=== PATIENT | male | born 1930 | race Caucasian/White ===

== ENCOUNTER 2016-07-11 14:24 | Inpatient (IN) | payer OTHER, MEDICARE ==
[2016-07-11] MEDS ORDERED: ASPIRIN 81 MG CHEWABLE TABLETS PO ONE (14:36)
[2016-07-11] MEDS ORDERED: ASPIRIN 81 MG CHEWABLE TABLETS ONE (14:43)
[2016-07-11 14:46] LABS: BASOPHIL 0.5 % (0-2.0); EOSINOPHIL 0.7 % (0-4.5); MCHC 32.4 g/dl (32.0-35.9); MEAN CELL VOLUME 86.4 fl (80-96); NEUTROPHILS 80.6 % (42.8-82.8); PLATELET COUNT 144 K/MM3 (134-434); RDW 17.4 % (11.9-15.9); WHITE BLOOD COUNT 8.2 K/mm3 (4.0-10.0)
--- NOTE | 2016-07-11 14:56 | PDOC ---
History of Present Illness - General Chief Complaint: Chest Pain Stated Complaint: SOB/CHEST PAIN Time Seen by Provider: 07/11/16 14:35 History Source: Patient Exam Limitations: No Limitations - History of Present Illness Initial Comments: 07/11/16 15:13 CHIEF COMPLAINT: Chest Pain HISTORY OF PRESENT ILLNESS: This is an 85 year old male with a history of CAD s/p ND 1997, s/p CABG x 3 1983 an 1997, bovine Aortic valve replacement x 2 (1983, 1998), DVT 1998, Afib ( on coumadin), PVD s/p right LE stent, TIA s/p Right CA, HTN, HLD, AAA, Chronic Kidney disease and R great toe pseudomonal osteomyelitis who presents to the ER with a complaint of chest pain and shortness of breath. Pt states his symptoms have been present for the past 4 days. Pain is described as pressure, located in the left chest, no radiation to the arm, jaw or back Pain is 7/10 Pt states when his symptoms began, he was seen by Dr Toth who increased his Lasix from 20mg daily to 40 mg po BID Despite this, he states his breathing worsened He has noted no fevers or chills No cough or sputum production Pt denies chest wall trauma or bruising. Pt denies lower extremity edema. Pt denies nausea, vomiting, or diarrhea. Pt denies lightheadedness, palpitations, or syncope PMH/PSH: as abve Meds: please see MAR ALL: PCN Social: Pt denies allergies, and significant past hospitalizations. Pt denies alcohol use, tobacco use, or recreational drug use. REVIEW OF SYSTEMS: GENERAL/CONSTITUTIONAL: No fever or chills. No weakness. No weight change. HEAD, EYES, EARS, NOSE AND THROAT: No change in vision. No ear pain or discharge. No sore throat. CARDIOVASCULAR: Yes: chest pain, shortness of breath. RESPIRATORY: No cough, wheezing, or hemoptysis. No pain on deep inspiration. GASTROINTESTINAL: No nausea, vomiting, diarrhea or constipation. No rectal bleeding. GENITOURINARY: No dysuria, frequency, or change in urination. MUSCULOSKELETAL: No deformity, no fracture SKIN: No rash or easy bruising. NEUROLOGIC: No headache, vertigo, loss of consciousness, or loss of sensation. PSYCHIATRIC: No depression or anxiety. ENDOCRINE: No increased thirst. No abnormal weight change. HEMATOLOGIC/LYMPHATIC: No bruising PHYSICAL EXAM: GENERAL: The patient is awake, alert, and fully oriented, in no acute distress. HEAD: Normal with no signs of trauma. ENT: Pupils equal, round and reactive to light, extraocular movements intact, sclera anicteric, conjunctiva clear. Neck supple. PULM: Breath sounds present and equal bilaterally. Normal excursion. No respiratory distress or use of accessory muscles. CV: Irregular rate and rhythm, S1/S2, + systolic murmur auscultated at LUSB, LLSB, radiating to axilla and b/l carotids. Cap refill < 2 sec. ABDOMEN: Soft, non-distended, non-tender. MS: No tenderness, no deformity, no fracture or bruising EXTREMITIES: Normal range of motion, trace LE edema. NEUROLOGICAL: Normal speech, normal gait. CN II-XII grossly intact. No midline cervical vertebral tenderness. Midline tenderness T4/T5 even when patient is distracted. No midline lumbar or sacral vertebral tenderness. 5/5 upper and lower extremity strength bilaterally. No saddle anesthesia. PSYCH: Normal mood, normal affect. SKIN: Warm, dry, normal turgor, no rashes or lesions noted. Healed sternal/ abdominal surgical scar, healed RLE surgical scar. 07/11/16 15:33 == Past History - Past Medical History Allergies/Adverse Reactions: Allergies Allergy/AdvReac Type Severity Reaction Status Date / Time Penicillins Allergy Rash Verified 07/11/16 14:35 Home Medications: Ambulatory Orders Amlodipine Besylate [Norvasc -] 5 mg PO DAILY 11/13/14 Atenolol [Tenormin -] 25 mg PO BID 11/13/14 Atorvastatin Ca [Lipitor -] 20 mg PO HS 11/13/14 Cholecalciferol (Vitamin D3) [Vitamin D3 -] 1,000 unit PO DAILY 11/13/14 Cyanocobalamin [Vitamin B12 -] 2,000 mcg PO DAILY 11/13/14 Docusate Sodium [Colace] 100 mg PO TID 11/13/14 Folic Acid - 1 mg PO DAILY 11/13/14 Furosemide [Lasix -] 40 mg PO BID 11/13/14 Hydralazine HCl 100 mg PO TID 11/13/14 Hydrochlorothiazide [Hctz -] 25 mg PO ONCE 11/13/14 Terazosin HCl 2 mg PO HS 11/13/14 Warfarin Sodium [Coumadin] 2 mg PO HS 11/13/14 Ascorbate Calcium [Vitamin C] 500 mg PO DAILY 07/11/16 Bifidobacterium Infantis [Align Jr] 10.5 mg PO DAILY 07/11/16 Losartan Potassium [Cozaar -] 50 mg PO DAILY 07/11/16 Potassium Chloride 20 meq PO DAILY 07/11/16 Anemia: Yes Asthma: No Cancer: No Cardiac Disorders: Yes (CABG, valve replacement) CVA: Yes () COPD: No CHF: Yes DVT: Yes Dementia: No Diabetes: Yes GI Disorders: No Disorders: No HTN: Yes Hypercholesterolemia: Yes Liver Disease: No Suicide Attempt (Hx): No Seizures: No Thyroid Disease: No - Surgical History Abdominal Surgery: No Appendectomy: No Cardiac Surgery: Yes (CABG, 1997 AORTIV VALVE REPLACED,TRIPLE BYPASS IN 1997) Cholecystectomy: No Lung Surgery: No Neurologic Surgery: No Orthopedic Surgery: No - Immunization History Td Vaccination: Yes Immunization Up to Date: Yes - Psycho/Social/Smoking Cessation Hx Anxiety: No Suicidal Ideation: No Smoking Status: Yes (40 YRS QUIT) Smoking History: Former smoker Have you smoked in the past 12 months: No Number of Cigarettes Smoked Daily: 0 If you are a former smoker, when did you quit?: 45 years ago Information on smoking cessation initiated: No 'Breaking Loose' booklet given: 10/10/12 Hx Alcohol Use: No Drug/Substance Use Hx: No Substance Use Type: None Hx Substance Use Treatment: No Cardiac Specific PMH - Complaint Specific PMHX Angina: No Cardiac Arrhythmia: No Pacemaker: No *Physical Exam - Vital Signs Last Vital Signs Temp Pulse Resp BP Pulse Ox 98.4 F 66 20 137/71 96 07/12/16 06:43 07/12/16 06:43 07/12/16 06:43 07/12/16 06:43 07/12/16 02:30 Heart Score/ECG Review #1 ECG reviewed & interpreted by me at: 16:42 07/11/16 16:42 Twelve-lead EKG was performed and reviewed by me. Rolly cleaning with a rate of 56 bpm. The axis is normal. The intervals are normal - QRS: 92ms, QTc:443ms. There are no ST elevations or depressions. T wave normal ED Treatment Course - LABORATORY CBC & Chemistry Diagram: 07/11/16 14:35 07/11/16 14:35 - ADDITIONAL ORDERS Additional order review: 07/11/16 14:35 RBC 3.93 L MCV 86.4 MCHC 32.4 RDW 17.4 H MPV 8.0 Neutrophils % 80.6 Lymphocytes % 8.0 Monocytes % 10.2 Eosinophils % 0.7 Basophils % 0.5 - RADIOLOGY Radiology Studies Ordered: Category Date Time Status CHEST X-RAY PORTABLE* [RAD] Stat Radiology 07/11/16 14:37 Completed - Medications Given in the ED: ED Medications Discontinued Medications Generic Name Dose Route Start Last Admin Trade Name Freq PRN Reason Stop Dose Admin Aspirin 162 mg 07/11/16 14:36 07/11/16 14:54 Asa - PO 07/11/16 14:37 162 mg ONCE ONE Administration Terazosin HCl 2 mg 07/11/16 22:00 07/12/16 03:30 Hytrin - PO Not Given [facility] Medical Decision Making - Critical Care Time Total Critical Care Time (minutes): 35 Critical Care Statement: The care of this patient involved high complexity decision making to prevent further life threatening deterioration of the patient 's condition and/or to evalute & treat vital organ system(s) failure or risk of failure. - Medical Decision Making Clinical impression: Congestive Heart Failure 07/11/16 15:41 Patient placed on BiPAP. Patient states with the BiPAP his breathing has improved. Awaiting labs Awaiting CXR 07/11/16 15:50 Laboratory Tests 09/22/14 09/22/14 07/11/16 19:57 21:03 14:35 WBC 12.3 H D 8.2 D Hgb 11.6 L 11.0 L Hct 34.5 L 34.0 L Plt Count 165 144 Sodium Potassium Chloride Carbon Dioxide BUN 27 H D Creatinine 1.7 H D Random Glucose 99 Creatine Kinase Troponin I B-Natriuretic Peptide 07/11/16 07/11/16 14:35 14:35 WBC Hgb Hct Plt Count Sodium 140 Potassium 3.3 L Chloride 100 Carbon Dioxide 28 BUN 37 H D Creatinine 1.8 H Random Glucose 158 H D Creatine Kinase 96 Troponin I 0.02 D B-Natriuretic Peptide 6407.76 H Chest x-ray: Cardiomegaly, congestive changes, NOT OFFICIALLY READ. Due to dyspnea, will place on BiPAP Pt tolerates this well 07/11/16 16:[address] Mobley Will admit to his service Will give lasix 40 mg IV (pt states he did not take any this morning) Consult called for Dr Macdonald Pt resting comfortably will continuously monitor clinical Impression: chest pain, chf 07/12/16 08:10 *DC/Admit/Observation/Transfer Diagnosis at time of Disposition: Chest pain Qualifiers: Chest pain type: other chest pain Qualified Code(s): R07.89 - Other chest pain Congestive heart failure Qualifiers: Congestive heart failure chronicity: acute on chronic - Discharge Dispostion Condition at time of disposition: Stable Admit: Yes Decision to Admit order Date/Time: Decision to Admit Order Category Date Time Status Decision to Admit to Hospital Routine Admission 07/11/16 16:40 Active - Referrals
[2016-07-11 15:06] LABS: INR 2.11 (0.82-1.09); PROTHROMBIN TIME (PATIENT) 23.6 SEC (9.98-11.88)
[2016-07-11 15:12] LABS: ALBUMIN 3.3 g/dl (3.4-5.0); BILIRUBIN,TOTAL 0.7 mg/dL (0.2-1.0); CALCIUM 8.6 mg/dL (8.5-10.1); CREATININE 1.8 mg/dL (0.7-1.3); MAGNESIUM 2.1 mg/dL (1.8-2.4)
[2016-07-11 15:15] LABS: TROPONIN I 0.02 ng/ml (0.00-0.05)
[2016-07-11 15:35] LABS: URINE APPEARANCE CLEAR; URINE BILIRUBIN NEGATIVE (NEGATIVE); URINE BLOOD NEGATIVE (NEGATIVE); URINE COLOR YELLOW; URINE GLUCOSE (UA) NEGATIVE (NEGATIVE); URINE KETONE NEGATIVE (NEGATIVE); URINE LEUK ESTERASE NEGATIVE (NEGATIVE); URINE NITRITE NEGATIVE (NEGATIVE); URINE PROTEIN NEGATIVE (NEGATIVE); URINE UROBILINOGEN NEGATIVE E.U./dl (0.2-1.0)
--- NOTE | 2016-07-11 16:28 | EKG ---
Test Reason : Blood Pressure : / mmHG Vent. Rate : 056 BPM Atrial Rate : 050 BPM P-R Int : 000 ms QRS Dur : 092 ms QT Int : 460 ms P-R-T Axes : 000 -17 002 degrees QTc Int : 443 ms ATRIAL FIBRILLATION WITH SLOW VENTRICULAR RESPONSE NONSPECIFIC ST AND T WAVE ABNORMALITY ABNORMAL ECG WHEN COMPARED WITH ECG OF 13-NOV-2014 16:00, ATRIAL FIBRILLATION HAS REPLACED SINUS RHYTHM Confirmed by MD GOLDIE, MARICRUZ ([id number]) on 07/11/2016 4:28:20 PM Referred By: Confirmed By:MARICRUZ AMEZCUA MD
[2016-07-11] MEDS ORDERED: HYDROCHLOROTHIAZIDE 25 MG TABLET (FP) PO SCH (17:45)
--- NOTE | 2016-07-11 18:09 | CON.CARD ---
Cardiology Consult (text) - Consultation Consultation Note: CC: sob/cp 85 m hx pafib (on coumadin), cad s/p inferior NV 1997, s/p cabg x3 1983 and 1997 , bio avr (1983 and 1997), hld, htn, tia, s/p right cea, pad with severe bl le dz s/p stenting and bypass, AAA, DM, ckd (1.3-1.7), obesity, dvt, hcv, here with progressive sob cp. States he has chronic intermittent sob at rest (for years) that occurs a couple of times per week. However, for the past 2 weeks he has had more frequent episodes along with worsening hall (now dyspnea with minimal activity), worsened orthopnea (2 --> 4 pillows), le edema and recently chest discomfort. lasix was increased from 40 mg to 80 mg per day without improvement in sx's. denies bleeding, or transient neurologic symptoms denies sick contacts, f/c/s, n/v/d, cough, congestion, headache, rashes. pmhx/pshx: per hpi social hx: former smoker, no etoh or illicits fam hx: no premature cad ros: per hpi Ambulatory Orders Amlodipine Besylate [Norvasc -] 5 mg PO DAILY 11/13/14 Atenolol [Tenormin -] 25 mg PO BID 11/13/14 Atorvastatin Ca [Lipitor -] 20 mg PO HS 11/13/14 Cholecalciferol (Vitamin D3) [Vitamin D3 -] 1,000 unit PO DAILY 11/13/14 Cyanocobalamin [Vitamin B12 -] 2,000 mcg PO DAILY 11/13/14 Docusate Sodium [Colace] 100 mg PO TID 11/13/14 Folic Acid - 1 mg PO DAILY 11/13/14 Furosemide [Lasix -] 40 mg PO BID 11/13/14 Hydralazine HCl 100 mg PO TID 11/13/14 Hydrochlorothiazide [Hctz -] 25 mg PO ONCE 11/13/14 Terazosin HCl 2 mg PO HS 11/13/14 Warfarin Sodium [Coumadin] 2 mg PO HS 11/13/14 Ascorbate Calcium [Vitamin C] 500 mg PO DAILY 07/11/16 Bifidobacterium Infantis [Align Jr] 10.5 mg PO DAILY 07/11/16 Losartan Potassium [Cozaar -] 50 mg PO DAILY 07/11/16 Potassium Chloride 20 meq PO DAILY 07/11/16 Current Medications Amlodipine Besylate (Norvasc -) 5 mg PO DAILY [facility] Atenolol (Tenormin -) 25 mg PO BID [facility] Atorvastatin Calcium (Lipitor -) 20 mg PO HS [facility] Docusate Sodium (Colace -) 100 mg PO TID [facility] Folic Acid (Folic Acid -) 1 mg PO DAILY [facility] Furosemide (Lasix Injection -) 40 mg IVPB BIDLASIX [facility] Hydralazine HCl (Apresoline -) 100 mg PO TID [facility] Hydrochlorothiazide (Hctz -) 25 mg PO DAILY [facility] Losartan Potassium (Cozaar -) 50 mg PO DAILY [facility] Potassium Chloride (K-Dur -) 20 meq PO DAILY [facility] Terazosin HCl (Hytrin -) 2 mg PO HS [facility] Warfarin Sodium (Coumadin -) 2 mg PO DAILY@1800 [facility] Vital Signs - 24 hr 07/11/16 07/11/16 07/11/16 14:25 14:31 15:00 Temperature 98.7 F Pulse Rate 82 Pulse Rate [ 60 Apical] Respiratory 30 H 28 H Rate Blood Pressure 147/79 Blood Pressure [Left Arm] O2 Sat by Pulse 88 L 90 L 97 Oximetry (%) 07/11/16 07/11/16 15:22 16:56 Temperature 100.1 F H Pulse Rate Pulse Rate [ 51 L Apical] Respiratory 20 Rate Blood Pressure Blood Pressure 139/62 [Left Arm] O2 Sat by Pulse 97 97 Oximetry (%) NAD, calm wearing bipap jvd elevated, neck supple bibasilar dullness, diminished air mov't, nl effort irregular, bradycardic. 2/6 soft sys murmur at usb + bs soft nt nd ext with trace edema, no cyanosis, clubbing aaox3 no jaundice, diaphoresis CBC, BMP 07/11/16 14:35 07/11/16 14:35 Laboratory Tests 10/04/12 07/11/16 07/11/16 11:40 14:35 14:35 INR 2.11 H Total Bilirubin 0.7 D AST 18 ALT 24 Alkaline Phosphatase 84 B-Natriuretic Peptide 1027 H* Creatine Kinase 96 Troponin I 0.02 D Albumin 3.3 L 07/11/16 14:35 INR Total Bilirubin AST ALT Alkaline Phosphatase B-Natriuretic Peptide 6407.76 H Creatine Kinase Troponin I Albumin EKG: afib, svr 56 bpm. non-specific t waves. possible inferior q waves tele: aflutter, svr. pvc's cxr: pulmonary venous congestion, likely superimposed RLL infiltrate echo 09/2015: nl lv/rv, mild lae, nl bio avr, mild tr, mild-mod phtn carotids 12/2015: jess >70% (same location as prior stenosis seen 09/2014), no sig stenosis on left cta 2006: patent knowles/shaggy, occluded svg to OM Mibi 2011 showed only possible minimal inferolateral ischemia abd us 01/2016: 4.8 cm AAA 85 m hx pafib (on coumadin), cad s/p inferior NV 1997, s/p cabg x3 1983 and 1997 , bio avr (1983 and 1997), hld, htn, tia, s/p right cea, pad with severe bl le dz s/p stenting and bypass, AAA, DM, ckd (1.3-1.7), obesity, dvt, hcv, here with progressive sob cp. sob: - Gets sensation of gasping for air intermittently at rest for years. Now with progression of symptoms and hypoxia. Exam, CXR c/w volume overload. However, also with low grade fever and RLL infiltrate. Agree with IV lasix. 1st dose now. - close monitoring of daily standing weights, I/O's, bmp - mgm't of possible infection per pmd. - repeat echo Pafib (on coumadin): - Rate controlled on BB, but currently svr. Would decrease atenolol dose to daily for now. - AC with coumadin. Dosing per inr. - electrolye repletion cad s/p inferior NV 1997, s/p cabg x3 1983 and 1997: - + cp. EKG without acute ischemic changes. trop neg x 1. Con't iesha. - Continue current medical management. Would add asa for now. s/p bio avr - nl function based on exam. would repeat echo given new HF sx's. hld: -statin htn: - Controlled on current meds. bio avr (1983 and 1997): - Normal exam. pad, s/p cea, s/p le bypass/stenting: - Claudication is stable. Pt has been evaluated by several vascular surgeons in the past and his le dz is deemed non revascularizable. Recent carotid US shows stable disease, no new sxs. Continue current cardiac meds. AAA: - Has been stable on serial non con chest/abd ct's over the past years and stable on recent abd US. Has seen vascular in past and they felt he is not a surgical candidate due to high risk. - Continue bb, statin.
[2016-07-11] MEDS ORDERED: FUROSEMIDE 40 MG/4 ML INJECTABLE VIAL ONE (18:43)
[2016-07-11] MEDS: FUROSEMIDE 40 MG/4 ML INJECTABLE VIAL IVPB SCH (18:45)
[2016-07-11 20:25] VITALS: BMI 31.5
[2016-07-11] MEDS: WARFARIN NA 2 MG TABLET (UD) PO SCH (21:24)
[2016-07-11] MEDS: hydrALAZINE HCL 50 MG TABLET (FP) PO SCH (21:24)
[2016-07-11] MEDS: DOCUSATE SODIUM 100 MG CAPSULE (FP) PO SCH (21:24)
[2016-07-11] MEDS: ATORVASTATIN CA 20 MG TABLET (FP) PO SCH (21:24)
[2016-07-11] MEDS ORDERED: oxyCODONE HCL 5 MG TABLET PO PRN (21:30)
[2016-07-11] MEDS ORDERED: DOCUSATE SODIUM 100 MG PO SCH (22:00)
[2016-07-11] MEDS ORDERED: TERAZOSIN HCL 2 MG CAPSULE PO SCH (22:00)
[2016-07-11] MEDS ORDERED: PATIENT'S OWN MEDICATION (NON-FORMULARY) (Hydralazine Hcl [Hydralazine Hcl] 100 MG) PO SCH (22:00)
[2016-07-11] MEDS ORDERED: ATENOLOL 25 MG TABLET (FP) PO SCH (22:00)
[2016-07-11] MEDS: MELATONIN 5 MG TABLETS PO PRN (22:18)
[2016-07-11 22:41] LABS: TROPONIN I 0.02 ng/ml (0.00-0.05)
[2016-07-12] MEDS: TERAZOSIN HCL 1 MG CAPSULE PO SCH ×2 (00:36→21:47)
[2016-07-12] MEDS: hydrALAZINE HCL 50 MG TABLET (FP) PO SCH ×3 (05:24→21:47)
[2016-07-12] MEDS: FUROSEMIDE 40 MG/4 ML INJECTABLE VIAL IVPB SCH ×2 (05:27→14:15)
[2016-07-12] MEDS: DOCUSATE SODIUM 100 MG CAPSULE (FP) PO SCH ×3 (05:27→21:47)
[2016-07-12] MEDS ORDERED: FUROSEMIDE 40 MG/4 ML INJECTABLE VIAL IVPB SCH (06:00)
[2016-07-12 08:41] LABS: INR 2.38 (0.82-1.09); PROTHROMBIN TIME (PATIENT) 26.7 SEC (9.98-11.88)
[2016-07-12 08:44] LABS: BASOPHIL 0.5 % (0-2.0); EOSINOPHIL 1.9 % (0-4.5); MCH 28.5 pg (25.7-33.7); MCHC 33.3 g/dl (32.0-35.9); MEAN CELL VOLUME 85.8 fl (80-96); MEAN PLT VOLUME 8.7 fl (7.5-11.1); PLATELET COUNT 154 K/MM3 (134-434); RDW 17.3 % (11.9-15.9); WHITE BLOOD COUNT 7.6 K/mm3 (4.0-10.0)
[2016-07-12 09:07] LABS: ALBUMIN 3.3 g/dl (3.4-5.0); BILIRUBIN,TOTAL 0.8 mg/dL (0.2-1.0); CALCIUM 8.3 mg/dL (8.5-10.1); CREATININE 1.9 mg/dL (0.7-1.3); MAGNESIUM 2.2 mg/dL (1.8-2.4); THYROID STIMULATING HORMONE 1.69 uIU/ml (0.358-3.74); TOT PROT 7.1 g/dl (6.4-8.2); TROPONIN I 0.02 ng/ml (0.00-0.05)
[2016-07-12] MEDS: FOLIC ACID 1 MG TABLET (FP) PO SCH (09:37)
[2016-07-12] MEDS: POTASSIUM CHLORIDE TABS 20 MEQ TABLET.ER (FP) PO SCH (09:37)
[2016-07-12] MEDS: ATENOLOL 25 MG TABLET (FP) PO SCH (09:37)
[2016-07-12] MEDS: ASPIRIN 81 MG CHEWABLE TABLETS PO SCH (09:37)
[2016-07-12] MEDS: LOSARTAN POTASSIUM 50 MG TABLET (FP) PO SCH (09:37)
[2016-07-12] MEDS: amLODIPine BESYLATE 5 MG TABLET (FP) PO SCH (09:38)
[2016-07-12] MEDS: POLYETHYLENE GLYCOL 3350 119 GM BTL PO SCH (09:38)
[2016-07-12] MEDS ORDERED: PATIENT'S OWN MEDICATION (NON-FORMULARY) (Potassium Chloride [Potassium Chloride] 20 MEQ) PO SCH (10:00)
--- NOTE | 2016-07-12 10:29 | CON.PULM ---
Consult Consult Specialty:: PULMONARY Referred by:: Dr. Mobley Reason for Consultation:: shortness of breath - History of Present Illness Chief Complaint: shortness of breath History of Present Illness: 85yo male with h/o HTN, CAD s/p CABG, s/p AVR, atrial fibrillation, PAD s/p RLE stent, h/o TIA, CKD who was admitted with worsening shortness of breath and chest pain x 2 days. Chest pain described as pressure like, left sided. + nonproductive cough and wheezing. Also reports bilateral leg pain and worsening orthopnea now with 4 pillows. He did have subjective fevers, 100.1 on admission. No sick contacts or recent travel. Received flu shot this year. He is a remote smoker, denies history of asthma or COPD but was prescribed an inhaler as outpt. 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 - History Source History Provided By: Patient, Medical Record Limitations to Obtaining History: No Limitations - Past Medical History Cardio/Vascular: Yes: AFIB, CAD, HTN Renal/: Yes: Renal Inusuff - Alcohol/Substance Use Hx Alcohol Use: No - Smoking History Smoking history: Former smoker Have you smoked in the past 12 months: No Aproximately how many cigarettes per day: 0 If you are a former smoker, when did you quit?: 45 years ago Home Medications - Allergies Allergies/Adverse Reactions: Allergies Allergy/AdvReac Type Severity Reaction Status Date / Time Penicillins Allergy Rash Verified 07/11/16 14:35 - Home Medications Home Medications: Ambulatory Orders Amlodipine Besylate [Norvasc -] 5 mg PO DAILY 11/13/14 Atenolol [Tenormin -] 25 mg PO BID 11/13/14 Atorvastatin Ca [Lipitor -] 20 mg PO HS 11/13/14 Cholecalciferol (Vitamin D3) [Vitamin D3 -] 1,000 unit PO DAILY 11/13/14 Cyanocobalamin [Vitamin B12 -] 2,000 mcg PO DAILY 11/13/14 Docusate Sodium [Colace] 100 mg PO TID 11/13/14 Folic Acid - 1 mg PO DAILY 11/13/14 Furosemide [Lasix -] 40 mg PO BID 11/13/14 Hydralazine HCl 100 mg PO TID 11/13/14 Hydrochlorothiazide [Hctz -] 25 mg PO ONCE 11/13/14 Terazosin HCl 2 mg PO HS 11/13/14 Warfarin Sodium [Coumadin] 2 mg PO HS 11/13/14 Ascorbate Calcium [Vitamin C] 500 mg PO DAILY 07/11/16 Bifidobacterium Infantis [Align Jr] 10.5 mg PO DAILY 07/11/16 Losartan Potassium [Cozaar -] 50 mg PO DAILY 07/11/16 Potassium Chloride 20 meq PO DAILY 07/11/16 Review of Systems - Review of Systems Constitutional: reports: Fever, Weakness. denies: Chills Eyes: denies: Recent Change in Vision HENT: denies: Nasal Congestion, Throat Pain Neck: denies: Stiffness, Tenderness Cardiovascular: reports: Chest Pain, Edema, Shortness of Breath. denies: Palpitations Respiratory: reports: Cough, Exercise Intolerance, Orthopnea, PND, SOB, SOB on Exertion, Wheezing. denies: Hemoptysis Gastrointestinal: denies: Abdominal Pain, Nausea, Vomiting Genitourinary: denies: Dysuria, Hematuria Neurological: denies: Dizziness, Headache Physical Exam Vital Sings: Vital Signs Temperature 98.4 F 07/12/16 06:43 Pulse Rate 66 07/12/16 06:43 Respiratory Rate 20 07/12/16 06:43 Blood Pressure 137/71 07/12/16 06:43 O2 Sat by Pulse Oximetry (%) 96 07/12/16 02:30 Constitutional: Yes: Mild Distress (mildly tachypneic with speaking) Eyes: Yes: Conjunctiva Clear, EOM Intact HENT: Yes: Atraumatic, Normocephalic Neck: Yes: Supple, Trachea Midline Cardiovascular: Yes: Pulse Irregular Respiratory: Yes: Rales (bibasilar), Wheezes ...Clubbing: No Gastrointestinal: Yes: Normal Bowel Sounds, Soft. No: Tenderness Edema: No Neurological: Yes: Alert, Oriented Labs: CBC, BMP 07/12/16 06:00 07/12/16 06:00 Imaging - Results Chest X-ray: Report Reviewed, Image Reviewed (pulmonary vascular congestion) Problem List - Problems (1) Acute on chronic diastolic (congestive) heart failure Code(s): I50.33 - ACUTE ON CHRONIC DIASTOLIC (CONGESTIVE) HEART FAILURE (2) Pneumonia Code(s): J18.9 - PNEUMONIA, UNSPECIFIED ORGANISM (3) Atrial fibrillation Code(s): I48.91 - UNSPECIFIED ATRIAL FIBRILLATION (4) CAD (coronary artery disease) Code(s): I25.10 - ATHSCL HEART DISEASE OF [place] CORONARY ARTERY W/O ANG PCTRS (5) PAD (peripheral artery disease) Code(s): I73.9 - PERIPHERAL VASCULAR DISEASE, UNSPECIFIED Assessment/Plan Acute on Chronic LV Diastolic Heart Failure r/o Pneumonia CAD Atrial Fibrillation CKD PAD - pt with significant improvement with IV diuresis - continue IV lasix - monitor urine output, creatinine - daily weights, I/Os - echocardiogram - rate control - continue anticoagulation - pt may have a PNA vs bronchitis as precipitating event leading to decompensated CHF - will add empiric antibiotics for now - repeat CXR in AM, if significant improvement in imaging, can likely d/c antibiotics - O2 to keep spO2 >90% - inhaled bronchodilators - outpt PFTs Thank you for this consult Jermaine Peterson MD
--- NOTE | 2016-07-12 11:34 | HP ---
Admitting History and Physical - Admission History of Present Illness: 85 year old male with a history of CAD s/p OR 1997, s/p CABG x 3 1983 an 1997, bovine Aortic valve replacement x 2 (1983, 1998), DVT 1998, Afib (on coumadin), PVD s/p right LE stent, TIA s/p Right CA, HTN, HLD, AAA, Chronic Kidney disease and R great toe pseudomonal osteomyelitis who presents to the ER with a complaint of chest pain and shortness of breath. Pt states his symptoms have been present for the past 4 days. Pain is described as pressure, located in the left chest, no radiation to the arm, jaw or back Pain is 7/10 Pt states when his symptoms began, he was seen by Dr Toth who increased his Lasix from 20mg daily to 40 mg po BID Despite this, he states his breathing worsened He has noted no fevers or chills No cough or sputum production THIS AM BETTER - Past Medical History Cardiovascular: Yes: AFIB, CAD, HTN Renal/: Yes: Renal Inusuff - Smoking History Smoking history: Former smoker Have you smoked in the past 12 months: No Aproximately how many cigarettes per day: 0 If you are a former smoker, when did you quit?: 45 years ago - Alcohol/Substance Use Hx Alcohol Use: No Home Medications - Allergies Allergies/Adverse Reactions: Allergies Allergy/AdvReac Type Severity Reaction Status Date / Time Penicillins Allergy Rash Verified 07/11/16 14:35 - Home Medications Home Medications: Ambulatory Orders Amlodipine Besylate [Norvasc -] 5 mg PO DAILY 11/13/14 Atenolol [Tenormin -] 25 mg PO BID 11/13/14 Atorvastatin Ca [Lipitor -] 20 mg PO HS 11/13/14 Cholecalciferol (Vitamin D3) [Vitamin D3 -] 1,000 unit PO DAILY 11/13/14 Cyanocobalamin [Vitamin B12 -] 2,000 mcg PO DAILY 11/13/14 Docusate Sodium [Colace] 100 mg PO TID 11/13/14 Folic Acid - 1 mg PO DAILY 11/13/14 Furosemide [Lasix -] 40 mg PO BID 11/13/14 Hydralazine HCl 100 mg PO TID 11/13/14 Hydrochlorothiazide [Hctz -] 25 mg PO ONCE 11/13/14 Terazosin HCl 2 mg PO HS 11/13/14 Warfarin Sodium [Coumadin] 2 mg PO HS 11/13/14 Ascorbate Calcium [Vitamin C] 500 mg PO DAILY 07/11/16 Bifidobacterium Infantis [Align Jr] 10.5 mg PO DAILY 07/11/16 Losartan Potassium [Cozaar -] 50 mg PO DAILY 07/11/16 Potassium Chloride 20 meq PO DAILY 07/11/16 Review of Systems - Review of Systems Cardiovascular: reports: Chest Pain. denies: Palpitations Respiratory: reports: SOB, SOB on Exertion Gastrointestinal: reports: No Symptoms Genitourinary: reports: No Symptoms Physical Examination Vital Signs: Vital Signs Temperature 98.6 F 07/12/16 10:00 Pulse Rate 72 07/12/16 10:00 Respiratory Rate 20 07/12/16 10:00 Blood Pressure 134/71 07/12/16 10:00 O2 Sat by Pulse Oximetry (%) 95 07/12/16 10:00 Cardiovascular: Yes: Murmur, S1 Respiratory: Yes: Regular, CTA Bilaterally Gastrointestinal: Yes: Normal Bowel Sounds, Soft Edema: Yes Labs: CBC, BMP 07/12/16 06:00 07/12/16 06:00 Problem List - Problems (1) Acute on chronic diastolic (congestive) heart failure Assessment/Plan: IV LASIX MONITOR LABS CXR CARDIO BNP 6047 Code(s): I50.33 - ACUTE ON CHRONIC DIASTOLIC (CONGESTIVE) HEART FAILURE (2) Atrial fibrillation Assessment/Plan: AC Code(s): I48.91 - UNSPECIFIED ATRIAL FIBRILLATION (3) CAD (coronary artery disease) Assessment/Plan: STABLE Troponin, BNP 07/11/16 07/11/16 07/11/16 14:35 14:35 21:30 Troponin I 0.02 D 0.02 B-Natriuretic Peptide 6407.76 H 07/12/16 06:00 Troponin I 0.02 B-Natriuretic Peptide Code(s): I25.10 - ATHSCL HEART DISEASE OF [place] CORONARY ARTERY W/O ANG PCTRS
--- NOTE | 2016-07-12 11:52 | PN ---
Progress Note, Physician History of Present Illness: No complaints Feels breathing has improved Tele: AFib with PVC - Current Medication List Current Medications: Active Medications Albuterol/Ipratropium (Duoneb -) 1 amp NEB Q4H PRN PRN Reason: SHORTNESS OF BREATH Amlodipine Besylate (Norvasc -) 5 mg PO DAILY [facility] Last Admin: 07/12/16 09:38 Dose: 5 mg Aspirin (Asa -) 81 mg PO DAILY [facility] Last Admin: 07/12/16 09:37 Dose: 81 mg Atenolol (Tenormin -) 25 mg PO DAILY [facility] Last Admin: 07/12/16 09:37 Dose: 25 mg Atorvastatin Calcium (Lipitor -) 20 mg PO HS [facility] Last Admin: 07/11/16 21:24 Dose: 20 mg Docusate Sodium (Colace -) 100 mg PO TID [facility] Last Admin: 07/12/16 05:27 Dose: 100 mg Folic Acid (Folic Acid -) 1 mg PO DAILY [facility] Last Admin: 07/12/16 09:37 Dose: 1 mg Furosemide (Lasix Injection -) 40 mg IVPB BIDLASIX [facility] Last Admin: 07/12/16 05:27 Dose: 40 mg Hydralazine HCl (Apresoline -) 100 mg PO TID [facility] Last Admin: 07/12/16 05:24 Dose: 100 mg Ceftriaxone Sodium (Rocephin 1gm Ivpb (Pre-Docked)) 50 mls @ 100 mls/hr IVPB DAILY [facility] Losartan Potassium (Cozaar -) 50 mg PO DAILY [facility] Last Admin: 07/12/16 09:37 Dose: 50 mg Melatonin (Melatonin) 5 mg PO HS PRN Last Admin: 07/11/16 22:18 Dose: 5 mg Oxycodone HCl (Roxicodone -) 5 mg PO Q8H PRN Last Admin: 07/11/16 22:15 Dose: 5 mg Polyethylene Glycol (Miralax (For Daily Use) -) 17 gm PO DAILY [facility] Last Admin: 07/12/16 09:38 Dose: 17 gm Potassium Chloride (K-Dur -) 20 meq PO DAILY [facility] Last Admin: 07/12/16 09:37 Dose: 20 meq Terazosin HCl (Hytrin -) 2 mg PO HS [facility] Last Admin: 07/12/16 00:36 Dose: 2 mg Warfarin Sodium (Coumadin -) 2 mg PO DAILY@1800 [facility] Last Admin: 07/11/16 21:24 Dose: 2 mg - Objective Vital Signs: Vital Signs Temperature 98.6 F 07/12/16 10:00 Pulse Rate 72 07/12/16 10:00 Respiratory Rate 20 07/12/16 10:00 Blood Pressure 134/71 07/12/16 10:00 O2 Sat by Pulse Oximetry (%) 95 07/12/16 10:00 Constitutional: Yes: No Distress Eyes: Yes: WNL HENT: Yes: WNL Neck: Yes: WNL Cardiovascular: Yes: Pulse Irregular, JVD Respiratory: Yes: CTA Bilaterally Musculoskeletal: Yes: WNL Extremities: Yes: WNL Edema: Yes Edema: LLE: 1+, RLE: 1+ Labs: CBC, BMP 07/12/16 06:00 07/12/16 06:00 INR, PTT INR 2.38 (0.82-1.09) H 07/12/16 06:00 Assessment/Plan 85 m hx pafib (on coumadin), cad s/p inferior [place] 1997, s/p cabg x3 1983 and 1997 , bio avr (1983 and 1997), hld, htn, tia, s/p right cea, pad with severe bl le dz s/p stenting and bypass, AAA, DM, ckd (1.3-1.7), obesity, dvt, hcv, here with progressive sob cp. sob: - Gets sensation of gasping for air intermittently at rest for years. Now with progression of symptoms and hypoxia. Exam, CXR c/w volume overload. However, also with low grade fever and RLL infiltrate. -Continue with IV lasix as still with elevated JVP - close monitoring of daily standing weights, I/O's, bmp - mgm't of possible infection per pmd. - repeat echo Pafib (on coumadin): - Rate controlled on BB, but currently svr. Would decrease atenolol dose to daily for now. - AC with coumadin. Dosing per inr. cad s/p inferior [place] 1997, s/p cabg x3 1983 and 1997: - + cp. EKG without acute ischemic changes. trop neg x 1. Con't iesha. - Continue current medical management. Would add asa for now. s/p bio avr - nl function based on exam. would repeat echo given new HF sx's.
[2016-07-12] MEDS: CEFTRIAXONE 50 ML IVPB SCH (11:56)
[2016-07-12] MEDS: WARFARIN NA 2 MG TABLET (UD) PO SCH ×2 (16:57→18:22)
--- NOTE | 2016-07-12 20:58 | EKG ---
Test Reason : Blood Pressure : / mmHG Vent. Rate : 052 BPM Atrial Rate : 267 BPM P-R Int : 000 ms QRS Dur : 096 ms QT Int : 490 ms P-R-T Axes : 000 -21 044 degrees QTc Int : 455 ms ATRIAL FIBRILLATION WITH SLOW VENTRICULAR RESPONSE WITH PREMATURE VENTRICULAR OR ABERRANTLY CONDUCTED COMPLEXES NONSPECIFIC ST AND T WAVE ABNORMALITY ABNORMAL ECG WHEN COMPARED WITH ECG OF 11-JUL-2016 14:38, NONSPECIFIC T WAVE ABNORMALITY NO LONGER EVIDENT IN INFERIOR LEADS NONSPECIFIC T WAVE ABNORMALITY, IMPROVED IN ANTERIOR LEADS NONSPECIFIC T WAVE ABNORMALITY NOW EVIDENT IN LATERAL LEADS Confirmed by SUSANA COOK MD ([id number]) on 07/12/2016 8:58:23 PM Referred By: Nancy DAILY Confirmed By:SUSANA COOK MD
[2016-07-12] MEDS: ATORVASTATIN CA 20 MG TABLET (FP) PO SCH (21:47)
[2016-07-12] MEDS: ALBUTEROL SO4 2.5/IPRATROPIUM 0.5 INH SOL 3 ML VIAL.NEB. NEB PRN (22:40)
[2016-07-13] MEDS: MELATONIN 5 MG TABLETS PO PRN ×2 (01:11→22:40)
[2016-07-13] MEDS: DOCUSATE SODIUM 100 MG CAPSULE (FP) PO SCH ×3 (06:22→21:03)
[2016-07-13] MEDS: FUROSEMIDE 40 MG/4 ML INJECTABLE VIAL IVPB SCH (06:22)
[2016-07-13] MEDS: hydrALAZINE HCL 50 MG TABLET (FP) PO SCH ×3 (06:22→21:03)
[2016-07-13 09:44] LABS: BASOPHIL 0.7 % (0-2.0); MCH 28.8 pg (25.7-33.7); MCHC 33.5 g/dl (32.0-35.9); NEUTROPHILS 76.8 % (42.8-82.8); PLATELET COUNT 150 K/MM3 (134-434); RDW 17.4 % (11.9-15.9); WHITE BLOOD COUNT 6.1 K/mm3 (4.0-10.0)
[2016-07-13] MEDS: POTASSIUM CHLORIDE TABS 20 MEQ TABLET.ER (FP) PO SCH (09:58)
[2016-07-13] MEDS: FOLIC ACID 1 MG TABLET (FP) PO SCH (09:58)
[2016-07-13] MEDS: ATENOLOL 25 MG TABLET (FP) PO SCH (09:58)
[2016-07-13] MEDS: amLODIPine BESYLATE 5 MG TABLET (FP) PO SCH (09:58)
[2016-07-13] MEDS: ASPIRIN 81 MG CHEWABLE TABLETS PO SCH (09:58)
[2016-07-13] MEDS: LOSARTAN POTASSIUM 50 MG TABLET (FP) PO SCH (09:58)
[2016-07-13] MEDS: CEFTRIAXONE 50 ML IVPB SCH (10:00)
[2016-07-13] MEDS: POLYETHYLENE GLYCOL 3350 119 GM BTL PO SCH (10:00)
[2016-07-13 10:11] LABS: ALBUMIN 3.1 g/dl (3.4-5.0); BILIRUBIN,TOTAL 0.7 mg/dL (0.2-1.0); CALCIUM 8.1 mg/dL (8.5-10.1); TOT PROT 6.6 g/dl (6.4-8.2)
[2016-07-13 10:17] LABS: INR 2.25 (0.82-1.09); PROTHROMBIN TIME (PATIENT) 25.2 SEC (9.98-11.88)
--- NOTE | 2016-07-13 10:55 | PN ---
Progress Note, Physician History of Present Illness: feels better - Current Medication List Current Medications: Active Medications Albuterol/Ipratropium (Duoneb -) 1 amp NEB Q4H PRN PRN Reason: SHORTNESS OF BREATH Last Admin: 07/12/16 22:40 Dose: 1 amp Amlodipine Besylate (Norvasc -) 5 mg PO DAILY [facility] Last Admin: 07/13/16 09:58 Dose: 5 mg Aspirin (Asa -) 81 mg PO DAILY [facility] Last Admin: 07/13/16 09:58 Dose: 81 mg Atenolol (Tenormin -) 25 mg PO DAILY [facility] Last Admin: 07/13/16 09:58 Dose: 25 mg Atorvastatin Calcium (Lipitor -) 20 mg PO HS [facility] Last Admin: 07/12/16 21:47 Dose: 20 mg Docusate Sodium (Colace -) 100 mg PO TID [facility] Last Admin: 07/13/16 06:22 Dose: 100 mg Folic Acid (Folic Acid -) 1 mg PO DAILY [facility] Last Admin: 07/13/16 09:58 Dose: 1 mg Furosemide (Lasix Injection -) 40 mg IVPB BIDLASIX [facility] Last Admin: 07/13/16 06:22 Dose: 40 mg Hydralazine HCl (Apresoline -) 100 mg PO TID [facility] Last Admin: 07/13/16 06:22 Dose: 100 mg Ceftriaxone Sodium (Rocephin 1gm Ivpb (Pre-Docked)) 50 mls @ 100 mls/hr IVPB DAILY [facility] Last Admin: 07/13/16 10:00 Dose: 100 mls/hr Losartan Potassium (Cozaar -) 50 mg PO DAILY [facility] Last Admin: 07/13/16 09:58 Dose: 50 mg Melatonin (Melatonin) 5 mg PO HS PRN Last Admin: 07/13/16 01:11 Dose: 5 mg Oxycodone HCl (Roxicodone -) 5 mg PO Q8H PRN Last Admin: 07/11/16 22:15 Dose: 5 mg Polyethylene Glycol (Miralax (For Daily Use) -) 17 gm PO DAILY [facility] Last Admin: 07/13/16 10:00 Dose: 17 gm Potassium Chloride (K-Dur -) 20 meq PO DAILY [facility] Last Admin: 07/13/16 09:58 Dose: 20 meq Terazosin HCl (Hytrin -) 2 mg PO HS [facility] Last Admin: 07/12/16 21:47 Dose: 2 mg Warfarin Sodium (Coumadin -) 2 mg PO DAILY@1800 [facility] Last Admin: 07/12/16 18:22 Dose: Not Given - Objective Vital Signs: Vital Signs Temperature 97.4 F L 07/13/16 08:46 Pulse Rate 59 L 07/13/16 08:46 Respiratory Rate 18 07/13/16 08:46 Blood Pressure 137/68 07/13/16 08:46 O2 Sat by Pulse Oximetry (%) 94 L 07/13/16 08:42 Cardiovascular: Yes: S1, S2 Respiratory: Yes: Regular, CTA Bilaterally Gastrointestinal: Yes: Normal Bowel Sounds, Soft Labs: CBC, BMP 07/13/16 09:10 07/13/16 09:10 INR, PTT INR 2.25 (0.82-1.09) H 07/13/16 09:10 Problem List - Problems (1) Acute on chronic diastolic (congestive) heart failure Assessment/Plan: IV LASIX--TO PO MONITOR LABS CXR CARDIO BNP 6047 Code(s): I50.33 - ACUTE ON CHRONIC DIASTOLIC (CONGESTIVE) HEART FAILURE (2) Atrial fibrillation Assessment/Plan: AC Code(s): I48.91 - UNSPECIFIED ATRIAL FIBRILLATION (3) CAD (coronary artery disease) Assessment/Plan: STABLE Troponin, BNP 07/11/16 07/11/16 07/11/16 14:35 14:35 21:30 Troponin I 0.02 D 0.02 B-Natriuretic Peptide 6407.76 H 07/12/16 06:00 Troponin I 0.02 B-Natriuretic Peptide Code(s): I25.10 - ATHSCL HEART DISEASE OF [place] CORONARY ARTERY W/O ANG PCTRS (4) Pneumonia Assessment/Plan: IV ABX CXR NOTED Code(s): J18.9 - PNEUMONIA, UNSPECIFIED ORGANISM
[2016-07-13] MEDS ORDERED: POTASSIUM CHLORIDE TABS 20 MEQ TABLET.ER (FP) PO ONE (11:15)
--- NOTE | 2016-07-13 11:19 | PN ---
Progress Note, Physician History of Present Illness: No complaints Breathing improving No chest pain Tele: Afib 60s - Current Medication List Current Medications: Active Medications Albuterol/Ipratropium (Duoneb -) 1 amp NEB Q4H PRN PRN Reason: SHORTNESS OF BREATH Last Admin: 07/12/16 22:40 Dose: 1 amp Amlodipine Besylate (Norvasc -) 5 mg PO DAILY [facility] Last Admin: 07/13/16 09:58 Dose: 5 mg Aspirin (Asa -) 81 mg PO DAILY [facility] Last Admin: 07/13/16 09:58 Dose: 81 mg Atenolol (Tenormin -) 25 mg PO DAILY [facility] Last Admin: 07/13/16 09:58 Dose: 25 mg Atorvastatin Calcium (Lipitor -) 20 mg PO HS [facility] Last Admin: 07/12/16 21:47 Dose: 20 mg Docusate Sodium (Colace -) 100 mg PO TID [facility] Last Admin: 07/13/16 06:22 Dose: 100 mg Folic Acid (Folic Acid -) 1 mg PO DAILY [facility] Last Admin: 07/13/16 09:58 Dose: 1 mg Furosemide (Lasix -) 80 mg PO DAILY [facility] Hydralazine HCl (Apresoline -) 100 mg PO TID [facility] Last Admin: 07/13/16 06:22 Dose: 100 mg Ceftriaxone Sodium (Rocephin 1gm Ivpb (Pre-Docked)) 50 mls @ 100 mls/hr IVPB DAILY [facility] Last Admin: 07/13/16 10:00 Dose: 100 mls/hr Potassium Chloride (Potassium Chloride 10 Meq Premix Ivpb -) 100 mls @ 100 mls/ hr IVPB Q60M [facility] Stop: 07/13/16 13:14 Losartan Potassium (Cozaar -) 50 mg PO DAILY [facility] Last Admin: 07/13/16 09:58 Dose: 50 mg Melatonin (Melatonin) 5 mg PO HS PRN Last Admin: 07/13/16 01:11 Dose: 5 mg Oxycodone HCl (Roxicodone -) 5 mg PO Q8H PRN Last Admin: 07/11/16 22:15 Dose: 5 mg Polyethylene Glycol (Miralax (For Daily Use) -) 17 gm PO DAILY [facility] Last Admin: 07/13/16 10:00 Dose: 17 gm Potassium Chloride (K-Dur -) 20 meq PO DAILY [facility] Last Admin: 07/13/16 09:58 Dose: 20 meq Terazosin HCl (Hytrin -) 2 mg PO HS [facility] Last Admin: 07/12/16 21:47 Dose: 2 mg Warfarin Sodium (Coumadin -) 2 mg PO DAILY@1800 [facility] Last Admin: 07/12/16 18:22 Dose: Not Given - Objective Vital Signs: Vital Signs Temperature 97.4 F L 07/13/16 08:46 Pulse Rate 59 L 07/13/16 08:46 Respiratory Rate 18 07/13/16 08:46 Blood Pressure 137/68 07/13/16 08:46 O2 Sat by Pulse Oximetry (%) 94 L 07/13/16 08:42 Constitutional: Yes: No Distress, Calm Eyes: Yes: WNL, Conjunctiva Clear HENT: Yes: WNL, Atraumatic Neck: Yes: WNL, Supple Cardiovascular: Yes: Pulse Irregular, JVD, Murmur Respiratory: Yes: Rales (Left base) Gastrointestinal: Yes: Normal Bowel Sounds, Soft Musculoskeletal: Yes: WNL Extremities: Yes: WNL Edema: No Labs: CBC, BMP 07/13/16 09:10 07/13/16 09:10 INR, PTT INR 2.25 (0.82-1.09) H 07/13/16 09:10 Assessment/Plan 85 m hx pafib (on coumadin), cad s/p inferior [place] 1997, s/p cabg x3 1983 and 1997 , bio avr (1983 and 1997), hld, htn, tia, s/p right cea, pad with severe bl le dz s/p stenting and bypass, AAA, DM, ckd (1.3-1.7), obesity, dvt, hcv, here with progressive sob cp. sob: - Exam, CXR c/w volume overload. However, also with low grade fever and RLL infiltrate. -Continue with IV lasix as still with elevated JVP - close monitoring of daily standing weights, I/O's, bmp - mgm't of possible infection per pmd. - repeat echo -Cr 2 Pafib (on coumadin): - Rate controlled on BB - AC with coumadin. Dosing per inr.
--- NOTE | 2016-07-13 11:45 | PN ---
Progress Note (short form) - Note Progress Note: PULMONARY Breathing better. No chest pain. +nonproductive cough. No fevers or chills. Last Vital Signs Temp Pulse Resp BP Pulse Ox 97.4 F L 59 L 18 137/68 94 L 07/13/16 08:46 07/13/16 08:46 07/13/16 08:46 07/13/16 08:46 07/13/16 08:42 Gen: less tachypneic Heart: RRR Lung: decreased breath sounds at the bases Abd: soft, nontender Ext: no edema CBC, BMP 07/13/16 09:10 07/13/16 09:10 Active Medications Albuterol/Ipratropium (Duoneb -) 1 amp NEB Q4H PRN PRN Reason: SHORTNESS OF BREATH Last Admin: 07/12/16 22:40 Dose: 1 amp Amlodipine Besylate (Norvasc -) 5 mg PO DAILY [facility] Last Admin: 07/13/16 09:58 Dose: 5 mg Aspirin (Asa -) 81 mg PO DAILY [facility] Last Admin: 07/13/16 09:58 Dose: 81 mg Atenolol (Tenormin -) 25 mg PO DAILY [facility] Last Admin: 07/13/16 09:58 Dose: 25 mg Atorvastatin Calcium (Lipitor -) 20 mg PO HS [facility] Last Admin: 07/12/16 21:47 Dose: 20 mg Docusate Sodium (Colace -) 100 mg PO TID [facility] Last Admin: 07/13/16 06:22 Dose: 100 mg Folic Acid (Folic Acid -) 1 mg PO DAILY [facility] Last Admin: 07/13/16 09:58 Dose: 1 mg Furosemide (Lasix -) 80 mg PO DAILY [facility] Hydralazine HCl (Apresoline -) 100 mg PO TID [facility] Last Admin: 07/13/16 06:22 Dose: 100 mg Ceftriaxone Sodium (Rocephin 1gm Ivpb (Pre-Docked)) 50 mls @ 100 mls/hr IVPB DAILY [facility] Last Admin: 07/13/16 10:00 Dose: 100 mls/hr Potassium Chloride (Potassium Chloride 10 Meq Premix Ivpb -) 100 mls @ 100 mls/ hr IVPB Q60M [facility] Stop: 07/13/16 13:14 Losartan Potassium (Cozaar -) 50 mg PO DAILY [facility] Last Admin: 07/13/16 09:58 Dose: 50 mg Melatonin (Melatonin) 5 mg PO HS PRN Last Admin: 07/13/16 01:11 Dose: 5 mg Oxycodone HCl (Roxicodone -) 5 mg PO Q8H PRN Last Admin: 07/11/16 22:15 Dose: 5 mg Polyethylene Glycol (Miralax (For Daily Use) -) 17 gm PO DAILY [facility] Last Admin: 07/13/16 10:00 Dose: 17 gm Potassium Chloride (K-Dur -) 20 meq PO DAILY [facility] Last Admin: 07/13/16 09:58 Dose: 20 meq Terazosin HCl (Hytrin -) 2 mg PO HS [facility] Last Admin: 07/12/16 21:47 Dose: 2 mg Warfarin Sodium (Coumadin -) 2 mg PO DAILY@1800 [facility] Last Admin: 07/12/16 18:22 Dose: Not Given A/P Acute on Chronic LV Diastolic Heart Failure r/o Pneumonia CAD Atrial Fibrillation CKD PAD - pt with significant improvement clinicallly and imaging with IV diuresis - continue IV lasix - monitor urine output, creatinine - daily weights, I/Os - echocardiogram - rate control - continue anticoagulation - pt may have a PNA vs bronchitis as precipitating event leading to decompensated CHF - continue empiric antibiotics for now - O2 to keep spO2 >90% - inhaled bronchodilators - outpt PFTs Problem List - Problems (1) Acute on chronic diastolic (congestive) heart failure Code(s): I50.33 - ACUTE ON CHRONIC DIASTOLIC (CONGESTIVE) HEART FAILURE (2) Pneumonia Code(s): J18.9 - PNEUMONIA, UNSPECIFIED ORGANISM (3) Atrial fibrillation Code(s): I48.91 - UNSPECIFIED ATRIAL FIBRILLATION (4) CAD (coronary artery disease) Code(s): I25.10 - ATHSCL HEART DISEASE OF [place] CORONARY ARTERY W/O ANG PCTRS (5) PAD (peripheral artery disease) Code(s): I73.9 - PERIPHERAL VASCULAR DISEASE, UNSPECIFIED
[2016-07-13] MEDS: KCL 10 MEQ IVPB 100 ML IVPB SCH ×2 (12:15→13:15)
[2016-07-13] MEDS: WARFARIN NA 2 MG TABLET (UD) PO SCH (17:53)
[2016-07-13] MEDS: ATORVASTATIN CA 20 MG TABLET (FP) PO SCH (21:03)
[2016-07-13] MEDS ORDERED: PT OWN MED DRAWER 7, Y5N ONE (21:06)
[2016-07-13] MEDS: TERAZOSIN HCL 1 MG CAPSULE PO SCH (21:31)
[2016-07-14] MEDS: hydrALAZINE HCL 50 MG TABLET (FP) PO SCH ×3 (05:24→21:01)
[2016-07-14] MEDS: DOCUSATE SODIUM 100 MG CAPSULE (FP) PO SCH ×3 (05:24→21:01)
--- NOTE | 2016-07-14 08:54 | PN ---
Progress Note, Physician Chief Complaint: sob History of Present Illness: sob is no better than when he came in he says; can't tolerate being off oxygen; no cp, palpitations; not much leg swelling - Current Medication List Current Medications: Active Medications Albuterol/Ipratropium (Duoneb -) 1 amp NEB Q4H PRN PRN Reason: SHORTNESS OF BREATH Last Admin: 07/12/16 22:40 Dose: 1 amp Amlodipine Besylate (Norvasc -) 5 mg PO DAILY [facility] Last Admin: 07/13/16 09:58 Dose: 5 mg Aspirin (Asa -) 81 mg PO DAILY [facility] Last Admin: 07/13/16 09:58 Dose: 81 mg Atenolol (Tenormin -) 25 mg PO DAILY [facility] Last Admin: 07/13/16 09:58 Dose: 25 mg Atorvastatin Calcium (Lipitor -) 20 mg PO HS [facility] Last Admin: 07/13/16 21:03 Dose: 20 mg Docusate Sodium (Colace -) 100 mg PO TID [facility] Last Admin: 07/14/16 05:24 Dose: 100 mg Folic Acid (Folic Acid -) 1 mg PO DAILY [facility] Last Admin: 07/13/16 09:58 Dose: 1 mg Furosemide (Lasix -) 80 mg PO DAILY [facility] Hydralazine HCl (Apresoline -) 100 mg PO TID [facility] Last Admin: 07/14/16 05:24 Dose: 100 mg Ceftriaxone Sodium (Rocephin 1gm Ivpb (Pre-Docked)) 50 mls @ 100 mls/hr IVPB DAILY [facility] Last Admin: 07/13/16 10:00 Dose: 100 mls/hr Losartan Potassium (Cozaar -) 50 mg PO DAILY [facility] Last Admin: 07/13/16 09:58 Dose: 50 mg Melatonin (Melatonin) 5 mg PO HS PRN Last Admin: 07/13/16 22:40 Dose: 5 mg Oxycodone HCl (Roxicodone -) 5 mg PO Q8H PRN Last Admin: 07/11/16 22:15 Dose: 5 mg Polyethylene Glycol (Miralax (For Daily Use) -) 17 gm PO DAILY [facility] Last Admin: 07/13/16 10:00 Dose: 17 gm Potassium Chloride (K-Dur -) 20 meq PO DAILY [facility] Last Admin: 07/13/16 09:58 Dose: 20 meq Terazosin HCl (Hytrin -) 2 mg PO HS [facility] Last Admin: 07/13/16 21:31 Dose: 2 mg Warfarin Sodium (Coumadin -) 2 mg PO DAILY@1800 [facility] Last Admin: 07/13/16 17:53 Dose: 2 mg - Objective Vital Signs: Vital Signs Temperature 97.7 F 07/14/16 07:49 Pulse Rate 69 07/14/16 07:49 Respiratory Rate 22 07/14/16 07:50 Blood Pressure 156/83 07/14/16 07:49 O2 Sat by Pulse Oximetry (%) 95 07/14/16 07:50 Constitutional: Yes: No Distress, Calm Eyes: No: Sclera Icterus HENT: No: Nasal Congestion Cardiovascular: Yes: Pulse Irregular, JVD (EJs distended in chair, ? IJ as well) , S1, S2, Other (PMI non diplaced). No: Gallop, Murmur Respiratory: Yes: Regular, CTA Bilaterally. No: Accessory Muscle Use, Rales, Wheezes Gastrointestinal: Yes: Normal Bowel Sounds, Soft. No: Tenderness Musculoskeletal: Yes: Other (No kyphosis) Extremities: No: Cold Edema: Yes (trace ankles) Integumentary: No: Jaundice Neurological: Yes: Alert, Oriented (x3) Psychiatric: No: Agitated Labs: CBC, BMP 07/13/16 09:10 07/13/16 09:10 INR, PTT INR 2.25 (0.82-1.09) H 07/13/16 09:10 - ....Imaging EKG: Other (tele: AF, HRs good) Assessment/Plan cxr: pulmonary venous congestion, likely superimposed RLL infiltrate echo 09/2015: nl lv/rv, mild lae, nl bio avr, mild tr, mild-mod phtn cta 2007: patent knowles/shaggy, occluded svg to OM M[facility] 2012: possible minimal inferolateral ischemia abd us 01/2016: 4.8 cm AAA 85 m hx pafib (on coumadin), cad s/p inferior [place] 1997, s/p cabg x3 1983 and 1997 , bio avr (1983 and 1997), hld, htn, tia, s/p right cea, pad with severe bl le dz s/p stenting and bypass, AAA, DM, ckd (1.3-1.7), obesity, dvt, hcv, here with progressive sob. SOB: acute diast chf, ? PNA (Tmax 100.1, normal WBCs, radiographic suggestion of infiltrate: - Gets sensation of gasping for air intermittently at rest for years. Now with progression of symptoms and hypoxia. Exam, CXR c/w volume overload. However, also with low grade fever and RLL infiltrate. - clinically volume overloaded here, incl JVD--receiving IV lasix - BNP 6K here, prior baseline 1-2K but in setting of low GFR--not diagnostic - bun/creat trending up daily, bicarb up as well - weight unchanged (vs up 1-2 lbs) - SOB has not improved - 1 of 2 possibilities exist: ? volume overloaded but not effectively diuresing him (including ? if low-output state), vs he is vol-depleted and JVD is red mcgill (? mainly external jugular distension related to copd) - abx for ? PNA per pulm - agree with CT chest, including for signs of signif emphysema (pt denies prior history) - check ABG for evidence of CO2 retention - PE is extremely low likelihood given he's on AC with home INRs for many yrs, and pt confirms has been consistently therapeutic range for many months at least - follow up repeat echo today--would not discharge him without echo -rpt bun/creat today (ordered-pending)--may need to cut back lasix if numbers still rising, delia if any of the above workuo suggests copd Pafib (on coumadin): - Rate controlled on BB, but was in SVR here--atenolol dose decreased - AC with coumadin. Dosing per inr. - hgb trending down slightly--monitor closely cad s/p inferior [place] 1997, s/p cabg x3 1983 and 1997: - + cp. EKG without acute ischemic changes. trop neg x 1. Con't iesha. - Continue current medical management. Would add asa for now. s/p bio avr - nl function based on exam. would repeat echo given new HF sx's. htn: - BP mostly well controlled here, at reasonable AAA prevention targets - monitor bp trend (atenolol dose decr'd) pad, s/p cea, s/p le bypass/stenting: - Claudication is stable. Pt has been evaluated by several vascular surgeons in the past and his le dz is deemed non revascularizable. Recent carotid US shows stable disease, no new sxs. Continue current cardiac meds. AAA: - Has been stable on serial non con chest/abd ct's over the past years and stable on recent abd US. Has seen vascular in past and they felt he is not a surgical candidate due to high risk. - Continue bb, statin.
[2016-07-14] MEDS: FOLIC ACID 1 MG TABLET (FP) PO SCH (09:23)
[2016-07-14] MEDS: POTASSIUM CHLORIDE TABS 20 MEQ TABLET.ER (FP) PO SCH (09:23)
[2016-07-14] MEDS: amLODIPine BESYLATE 5 MG TABLET (FP) PO SCH (09:23)
[2016-07-14] MEDS: ASPIRIN 81 MG CHEWABLE TABLETS PO SCH (09:24)
[2016-07-14] MEDS: FUROSEMIDE 40 MG TABLET (FP) PO SCH (09:24)
[2016-07-14] MEDS: LOSARTAN POTASSIUM 50 MG TABLET (FP) PO SCH (09:24)
[2016-07-14] MEDS: CEFTRIAXONE 50 ML IVPB SCH (09:26)
[2016-07-14] MEDS: ATENOLOL 25 MG TABLET (FP) PO SCH (09:26)
[2016-07-14] MEDS: POLYETHYLENE GLYCOL 3350 119 GM BTL PO SCH (09:26)
--- NOTE | 2016-07-14 11:04 | PN ---
Progress Note, Physician History of Present Illness: pulmonary alert,dyspneic ,hypoxic,O2 sat 85% on ra at rest - Current Medication List Current Medications: Active Medications Albuterol/Ipratropium (Duoneb -) 1 amp NEB Q4H PRN PRN Reason: SHORTNESS OF BREATH Last Admin: 07/12/16 22:40 Dose: 1 amp Amlodipine Besylate (Norvasc -) 5 mg PO DAILY [facility] Last Admin: 07/14/16 09:23 Dose: 5 mg Aspirin (Asa -) 81 mg PO DAILY [facility] Last Admin: 07/14/16 09:24 Dose: 81 mg Atenolol (Tenormin -) 25 mg PO DAILY [facility] Last Admin: 07/14/16 09:26 Dose: 25 mg Atorvastatin Calcium (Lipitor -) 20 mg PO HS [facility] Last Admin: 07/13/16 21:03 Dose: 20 mg Docusate Sodium (Colace -) 100 mg PO TID [facility] Last Admin: 07/14/16 05:24 Dose: 100 mg Folic Acid (Folic Acid -) 1 mg PO DAILY [facility] Last Admin: 07/14/16 09:23 Dose: 1 mg Furosemide (Lasix -) 80 mg PO DAILY [facility] Last Admin: 07/14/16 09:24 Dose: 80 mg Hydralazine HCl (Apresoline -) 100 mg PO TID [facility] Last Admin: 07/14/16 05:24 Dose: 100 mg Ceftriaxone Sodium (Rocephin 1gm Ivpb (Pre-Docked)) 50 mls @ 100 mls/hr IVPB DAILY [facility] Last Admin: 07/14/16 09:26 Dose: Not Given Losartan Potassium (Cozaar -) 50 mg PO DAILY [facility] Last Admin: 07/14/16 09:24 Dose: 50 mg Melatonin (Melatonin) 5 mg PO HS PRN Last Admin: 07/13/16 22:40 Dose: 5 mg Oxycodone HCl (Roxicodone -) 5 mg PO Q8H PRN Last Admin: 07/11/16 22:15 Dose: 5 mg Polyethylene Glycol (Miralax (For Daily Use) -) 17 gm PO DAILY [facility] Last Admin: 07/14/16 09:26 Dose: 17 gm Potassium Chloride (K-Dur -) 20 meq PO DAILY [facility] Last Admin: 07/14/16 09:23 Dose: 20 meq Terazosin HCl (Hytrin -) 2 mg PO HS [facility] Last Admin: 07/13/16 21:31 Dose: 2 mg Warfarin Sodium (Coumadin -) 2 mg PO DAILY@1800 [facility] Last Admin: 07/13/16 17:53 Dose: 2 mg - Objective Vital Signs: Vital Signs Temperature 97.7 F 07/14/16 07:49 Pulse Rate 69 07/14/16 07:49 Respiratory Rate 22 07/14/16 07:50 Blood Pressure 156/83 07/14/16 07:49 O2 Sat by Pulse Oximetry (%) 95 07/14/16 07:50 Constitutional: Yes: Well Nourished, Calm Eyes: Yes: WNL HENT: Yes: WNL Neck: Yes: WNL Cardiovascular: Yes: Pulse Irregular, S1, S2 Respiratory: Yes: Rales (bibasilar rales) Gastrointestinal: Yes: Normal Bowel Sounds, Soft Extremities: Yes: WNL Edema: Yes Labs: INR, PTT INR 2.25 (0.82-1.09) H 07/13/16 09:10 - ....Imaging Cat Scan: Report Reviewed, Image Reviewed (rll infiltrate,LLL density) Assessment/Plan A/P Acute on Chronic LV Diastolic Heart Failure Pneumonia CAD Atrial Fibrillation CKD s/p AVR AAA PAD - IV lasix - monitor urine output, creatinine - daily weights, I/Os - rate control - continue anticoagulation - continue antibiotics - O2 to keep spO2 >90% - inhaled bronchodilators - outpt PFTs - f/u chest x-rays Problem List - Problems (1) Acute on chronic diastolic (congestive) heart failure Code(s): I50.33 - ACUTE ON CHRONIC DIASTOLIC (CONGESTIVE) HEART FAILURE (2) Pneumonia Code(s): J18.9 - PNEUMONIA, UNSPECIFIED ORGANISM (3) Atrial fibrillation Code(s): I48.91 - UNSPECIFIED ATRIAL FIBRILLATION (4) CAD (coronary artery disease) Code(s): I25.10 - ATHSCL HEART DISEASE OF [place] CORONARY ARTERY W/O ANG PCTRS (5) PAD (peripheral artery disease) Code(s): I73.9 - PERIPHERAL VASCULAR DISEASE, UNSPECIFIED
[2016-07-14 11:05] LABS: BASOPHIL 0.5 % (0-2.0); EOSINOPHIL 1.6 % (0-4.5); MCH 28.6 pg (25.7-33.7); MCHC 33.3 g/dl (32.0-35.9); MEAN CELL VOLUME 85.7 fl (80-96); MEAN PLT VOLUME 7.8 fl (7.5-11.1); NEUTROPHILS 80.5 % (42.8-82.8); PLATELET COUNT 170 K/MM3 (134-434); RDW 17.5 % (11.9-15.9); WHITE BLOOD COUNT 6.3 K/mm3 (4.0-10.0)
[2016-07-14 11:19] LABS: CALCIUM 8.2 mg/dL (8.5-10.1); CREATININE 1.7 mg/dL (0.7-1.3)
[2016-07-14 11:31] LABS: ARTERIAL BLD GAS O2 SATURATION 91.4 % (90-98.9); ARTERIAL BLOOD GAS pH 7.44 (7.35-7.45)
[2016-07-14 11:32] LABS: ALLENS TEST POSITIVE; ART PUNCT SITE RIGHT BRACHIAL; ARTERIAL BLOOD GAS HCO3 29.2 meq/L (22-26); LPM/O2% 3 LPM; PT. ON O2? YES; TYPE OF O2 N/C
[2016-07-14 11:36] LABS: ARTERIAL BLOOD GAS PO2 64.7 mmHg (68-100)
[2016-07-14] MEDS ORDERED: POTASSIUM CHLORIDE TABS 20 MEQ TABLET.ER (FP) PO ONE (12:00)
[2016-07-14] MEDS: WARFARIN NA 2 MG TABLET (UD) PO SCH (18:57)
[2016-07-14] MEDS ORDERED: PT OWN MED DRAWER 7, Y5N ONE (20:54)
[2016-07-14] MEDS: ATORVASTATIN CA 20 MG TABLET (FP) PO SCH (21:01)
[2016-07-14] MEDS: TERAZOSIN HCL 1 MG CAPSULE PO SCH (21:01)
[2016-07-14] MEDS: MELATONIN 5 MG TABLETS PO PRN (21:02)
[2016-07-15] MEDS: ALBUTEROL SO4 2.5/IPRATROPIUM 0.5 INH SOL 3 ML VIAL.NEB. NEB PRN
[2016-07-15] MEDS: DOCUSATE SODIUM 100 MG CAPSULE (FP) PO SCH ×3 (06:01→21:41)
[2016-07-15] MEDS: hydrALAZINE HCL 50 MG TABLET (FP) PO SCH ×3 (06:01→21:40)
--- NOTE | 2016-07-15 08:23 | DS ---
Physical Examination Vital Signs: Vital Signs Temperature 98.2 F 07/15/16 06:00 Pulse Rate 64 07/15/16 06:00 Respiratory Rate 16 07/15/16 06:00 Blood Pressure 163/86 07/15/16 06:00 O2 Sat by Pulse Oximetry (%) 96 07/14/16 21:00 Labs: CBC, BMP 07/14/16 10:40 Discharge Summary Reason For Visit: CHEST PAIN Current Active Problems Acute on chronic diastolic (congestive) heart failure (Acute) Atrial fibrillation (Acute) CAD (coronary artery disease) (Acute) Chest pain (Acute) Congestive heart failure (Acute) PAD (peripheral artery disease) (Acute) Pneumonia (Acute) Hospital Course: 85 year old male with a history of CAD s/p [place] 1997, s/p CABG x 3 1983 an 1997, bovine Aortic valve replacement x 2 (1983, 1998), DVT 1998, Afib (on coumadin), PVD s/p right LE stent, TIA s/p Right CA, HTN, HLD, AAA, Chronic Kidney disease and R great toe pseudomonal osteomyelitis who presents to the ER with a complaint of chest pain and shortness of breath. Pt states his symptoms have been present for the past 4 days. Pain is described as pressure, located in the left chest, no radiation to the arm, jaw or back Pain is 7/10 Pt states when his symptoms began, he was seen by Dr Toth who increased his Lasix from 20mg daily to 40 mg po BID Despite this, he states his breathing worsened He has noted no fevers or chills No cough or sputum production - Problems (1) Acute on chronic diastolic (congestive) heart failure Assessment/Plan: IV LASIX--TO PO MONITOR LABS CXR CARDIO BNP 6047 Code(s): I50.33 - ACUTE ON CHRONIC DIASTOLIC (CONGESTIVE) HEART FAILURE (2) Atrial fibrillation Assessment/Plan: AC Code(s): I48.91 - UNSPECIFIED ATRIAL FIBRILLATION (3) CAD (coronary artery disease) Assessment/Plan: STABLE Troponin, BNP 07/11/16 07/11/16 07/11/16 14:35 14:35 21:30 Troponin I 0.02 D 0.02 B-Natriuretic Peptide 6407.76 H 07/12/16 06:00 Troponin I 0.02 B-Natriuretic Peptide Code(s): I25.10 - ATHSCL HEART DISEASE OF [place] CORONARY ARTERY W/O ANG PCTRS (4) Pneumonia Assessment/Plan: IV ABX--TO PO CXR NOTED--CT SCAN WITH INFILTRATES Code(s): J18.9 - PNEUMONIA, UNSPECIFIED ORGANISM (5) PULM NODULES Assessment/Plan: OUTPATIENT F/U (6) DILATED AORTIC ROOT Assessment/Plan: OUTPATIENT F/U (7) VALVULAR HEART DS Assessment/Plan: OUTPATIENT F/U Condition: Stable - Instructions Referrals: Linh Mobley MD [Primary Care Provider] - 1 Week Disposition: HOME - Home Medications Comprehensive Discharge Medication List: Ambulatory Orders Amlodipine Besylate [Norvasc -] 5 mg PO DAILY 11/13/14 Atenolol [Tenormin -] 25 mg PO BID 11/13/14 Atorvastatin Ca [Lipitor] 20 mg PO HS 11/13/14 Cholecalciferol (Vitamin D3) [Vitamin D3 -] 1,000 unit PO DAILY 11/13/14 Cyanocobalamin [Vitamin B12 -] 2,000 mcg PO DAILY 11/13/14 Docusate Sodium [Colace] 100 mg PO TID 11/13/14 Folic Acid - 1 mg PO DAILY 11/13/14 Hydralazine HCl 100 mg PO TID 11/13/14 Terazosin HCl 2 mg PO HS 11/13/14 Warfarin Sodium [Coumadin] 2 mg PO HS 11/13/14 Ascorbate Calcium [Vitamin C] 500 mg PO DAILY 07/11/16 Bifidobacterium Infantis [Align Jr] 10.5 mg PO DAILY 07/11/16 Losartan Potassium [Cozaar -] 50 mg PO DAILY 07/11/16 Potassium Chloride 20 meq PO DAILY 07/11/16 Albuterol 2.5/Ipratropium 0.5 [Duoneb -] 1 amp NEB Q4H PRN #120 amp 07/14/16 Furosemide [Lasix -] 80 mg PO DAILY tablet 07/14/16 Budesonide/Formeterol Fumarate [SYMBICORT 160/4.5mcg -] 2 puff IH BID #1 inhaler 07/15/16 Cefuroxime Axetil [Ceftin -] 500 mg PO Q12H #10 tablet 07/15/16 Tiotropium [place] [Spiriva] 1 puff IH DAILY #30 inh 07/15/16
[2016-07-15 08:53] LABS: CALCIUM 8.5 mg/dL (8.5-10.1)
[2016-07-15 08:54] LABS: CREATININE 1.5 mg/dL (0.7-1.3)
[2016-07-15] MEDS: FOLIC ACID 1 MG TABLET (FP) PO SCH (09:34)
[2016-07-15] MEDS: amLODIPine BESYLATE 5 MG TABLET (FP) PO SCH (09:35)
[2016-07-15] MEDS: FUROSEMIDE 40 MG TABLET (FP) PO SCH (09:35)
[2016-07-15] MEDS: CEFTRIAXONE 50 ML IVPB SCH (09:35)
[2016-07-15] MEDS: LOSARTAN POTASSIUM 50 MG TABLET (FP) PO SCH (09:35)
[2016-07-15] MEDS: ATENOLOL 25 MG TABLET (FP) PO SCH (09:35)
[2016-07-15] MEDS: POLYETHYLENE GLYCOL 3350 119 GM BTL PO SCH (09:36)
[2016-07-15] MEDS: ASPIRIN 81 MG CHEWABLE TABLETS PO SCH (09:36)
[2016-07-15] MEDS: POTASSIUM CHLORIDE TABS 20 MEQ TABLET.ER (FP) PO SCH (09:36)
[2016-07-15] MEDS ORDERED: TIOTROPIUM BROMIDE 18 MCG/INH (DEVICE W/ 5 CAPSULES) IH SCH (10:00)
--- NOTE | 2016-07-15 10:05 | PN ---
Progress Note (short form) - Note Progress Note: Chief Complaint: sob History of Present Illness: Remains hypoxic. Furosemide changed to po yesterday with improvement in CKD. BP uncontrolled today. HR remains controlled. no cp, palpitations; not much leg swelling Current Medications Aclidinium [place] (Tudorza -) 1 puff IH BID ARI Albuterol/Ipratropium (Duoneb -) 1 amp NEB Q4H PRN PRN Reason: SHORTNESS OF BREATH Last Admin: 07/15/16 00:00 Dose: 1 amp Amlodipine Besylate (Norvasc -) 5 mg PO DAILY [facility] Last Admin: 07/15/16 09:35 Dose: 5 mg Aspirin (Asa -) 81 mg PO DAILY [facility] Last Admin: 07/15/16 09:36 Dose: 81 mg Atenolol (Tenormin -) 25 mg PO DAILY [facility] Last Admin: 07/15/16 09:35 Dose: 25 mg Atorvastatin Calcium (Lipitor -) 20 mg PO HS [facility] Last Admin: 07/14/16 21:01 Dose: 20 mg Budesonide/Formoterol Fumarate (Symbicort 160/4.5mcg -) 2 puff IH BID [facility] Diphenhydramine HCl (Benadryl Injection -) 25 mg IVPB Q4H PRN PRN Reason: FOR ITCHING Docusate Sodium (Colace -) 100 mg PO TID [facility] Last Admin: 07/15/16 06:01 Dose: 100 mg Folic Acid (Folic Acid -) 1 mg PO DAILY [facility] Last Admin: 07/15/16 09:34 Dose: 1 mg Furosemide (Lasix -) 80 mg PO DAILY [facility] Last Admin: 07/15/16 09:35 Dose: 80 mg Hydralazine HCl (Apresoline -) 100 mg PO TID [facility] Last Admin: 07/15/16 06:01 Dose: 100 mg Ceftriaxone Sodium (Rocephin 1gm Ivpb (Pre-Docked)) 50 mls @ 100 mls/hr IVPB DAILY [facility] Last Admin: 07/15/16 09:35 Dose: 100 mls/hr Losartan Potassium (Cozaar -) 50 mg PO DAILY [facility] Last Admin: 07/15/16 09:35 Dose: 50 mg Melatonin (Melatonin) 5 mg PO HS PRN Last Admin: 07/14/16 21:02 Dose: 5 mg Polyethylene Glycol (Miralax (For Daily Use) -) 17 gm PO DAILY [facility] Last Admin: 07/15/16 09:36 Dose: 17 gm Potassium Chloride (K-Dur -) 20 meq PO DAILY [facility] Last Admin: 07/15/16 09:36 Dose: 20 meq Terazosin HCl (Hytrin -) 2 mg PO HS [facility] Last Admin: 07/14/16 21:01 Dose: 2 mg Warfarin Sodium (Coumadin -) 2 mg PO DAILY@1800 [facility] Last Admin: 07/14/16 18:57 Dose: 2 mg Vital Signs - 24 hr 07/14/16 07/14/16 07/14/16 11:58 11:59 15:21 Temperature 97.8 F Pulse Rate 66 68 58 L Respiratory 22 Rate Blood Pressure 142/72 O2 Sat by Pulse 93 L 85 L Oximetry (%) 07/14/16 07/14/16 07/14/16 18:00 21:00 22:00 Temperature 97.2 F L 97.9 F Pulse Rate 65 71 Respiratory 22 20 20 Rate Blood Pressure 135/70 147/68 O2 Sat by Pulse 96 Oximetry (%) 07/15/16 07/15/16 07/15/16 02:00 06:00 08:00 Temperature 97.7 F 98.2 F 98.6 F Pulse Rate 71 64 69 Respiratory 18 16 20 Rate Blood Pressure 155/93 163/86 164/68 O2 Sat by Pulse Oximetry (%) 07/15/16 09:28 Temperature Pulse Rate 85 Respiratory Rate Blood Pressure O2 Sat by Pulse 94 L Oximetry (%) Intake & Output 07/13/16 07/14/16 07/15/16 07/16/16 07:59 07:59 07:59 07:59 Intake Total 945 589 0709 Output Total 1200 1350 1500 Balance -800 -800 -160 Weight 188 lb 9.6 oz 189 lb 6.4 oz 189 lb 3.2 oz Constitutional: Yes: No Distress, Calm, using accessory muscles to breathe Eyes: No: Sclera Icterus HENT: No: Nasal Congestion Cardiovascular: Yes: Pulse Irregular, JVD elevated likely 2/2 TR. nl S1, S2, Other (PMI non diplaced). 2/6 murmur at lsb Respiratory: Yes: diffuse wheezes. No: Accessory Muscle Use, Rales, Wheezes Gastrointestinal: Yes: Normal Bowel Sounds, Soft. No: Tenderness. no hepatosplenomegaly Musculoskeletal: Yes: Other (No kyphosis) Extremities: No: Cold Edema: Yes (trace ankles) Integumentary: No: Jaundice Neurological: Yes: Alert, Oriented (x3) Psychiatric: No: Agitated Labs: CBC, BMP 07/14/16 10:40 07/15/16 05:48 - ....Imaging EKG: Other (tele: AF, SVR occasionally in the high 40's. No significant pauses. ) Assessment/Plan cxr: pulmonary venous congestion, likely superimposed RLL infiltrate images and report reviewed. CT chest: moderate non-consolidative infiltrates throughtout R lung with assoc small rt effusion. platelike and nodular atelecatsis at left base/lingula (can't exclude underlying mass) no pulmonary edema seen. 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 images and report reviewed. Echo: normal LV and RV size and fxn; mod ricardo. 1+ MR. bio avr well-seated. mod-severe TR with severe pulm HTN. asc ao 4.8 cm -- > by my review MN end-diastolic pressure increased c/w elevated LAP. RV significantly dilated measuring 5.1-5.8 cm. Nl function. TR likely moderate. AVR gradients not signficantly elevated. echo 09/2015: nl lv/rv, mild lae, nl bio avr, mild tr, mild-mod phtn cta 2006: patent knowles/shaggy, occluded svg to OM Mibi 2011: possible minimal inferolateral ischemia abd us 01/2016: 4.8 cm AAA 85 m hx pafib (on coumadin), cad s/p inferior [place] 1997, s/p cabg x3 1983 and 1997 , bio avr (1983 and 1997), hld, htn, tia, s/p right cea, pad with severe bl le dz s/p stenting and bypass, AAA, DM, ckd (1.3-1.7), obesity, dvt, hcv, here with progressive sob. SOB/severe pHTN: acute diast chf, ? PNA (Tmax 100.1, normal WBCs, radiographic suggestion of infiltrate) - Gets sensation of gasping for air intermittently at rest for years. Now with progression of symptoms and hypoxia. Exam, CXR c/w volume overload (cr worsened with iv lasix). JVD likely elevated in setting of TR. However, also with low grade fever and RLL infiltrate. - weight unchanged (vs up 1-2 lbs) - - PE is extremely low likelihood given he's on AC with home INRs for many yrs , and pt confirms has been consistently therapeutic range for many months at least 07/15: Persistent hypoxia and respiratory distress with accessory muscle use. Reviewed CT scan --> c/w extensive infiltrates in right lobe suspicious for pna as etiology of hypoxia. Reviewed ABG also consistent with hypoxic respiratory failure (no hypercapneic component). Cr improving after switch to po lasix. Would focus on treatment of pna per pmd, pulm. Echo reviewed. LIkely that acute pulmonary infection/hypoxia caused acute worsening of underlying pulmonary hypertension. Pulmonary hypertension most likely 2/2 diastolic heart failure. For severe phtn, would manage hypoxia/pna per pmd pulm. Needs improved bp control, plan discussed below. -pt should have outpt sleep study and pulmonary follow up to r/o ROEL and/or underlying pulmonary conditions contributing to pulm HTN Diastolic dysfunction with secondary pulmonary hypertension. - currently with increased filling pressures, but not grossly volume overloaded. Would continue with po lasix with daily weight monitoring and low threshold for adjustment in dose. - Exacerbation of pulmonary hypertension as mentioned above 2/2 pneumonia. Avoid hypoxia. Management per pmd/pulm. - bp control Pafib (on coumadin): - Rate controlled on BB, but was in SVR here--atenolol dose decreased --> remains in svr. Would hold atenolol dose. - AC with coumadin. Dosing per inr. repeat inr for tomorrow. - underlying anemia, hgb stable. con't to monitor. cad s/p inferior [place] 1997, s/p cabg x3 1983 and 1997: - + cp likely 2/2 pna. EKG without acute ischemic changes. trop neg x 3. - Continue current medical management. ASA added here. s/p bio avr - nl function based on exam. Repeat echo does not mention gradients. htn: - BP initially well controlled here, at reasonable AAA prevention targets. Today worsened. - would increase dose of amlodipine. Increase losartan dose to 100 mg/day. pad, s/p cea, s/p le bypass/stenting: - Claudication is stable. Pt has been evaluated by several vascular surgeons in the past and his le dz is deemed non revascularizable. Recent carotid US shows stable disease, no new sxs. Continue current cardiac meds. AAA/ascending aorta dilation: - Has been stable on serial non con chest/abd ct's over the past years and stable on recent abd US. Has seen vascular in past and they felt he is not a surgical candidate due to high risk. CT chest here shows distal descending 5.6 x 5.4. (progression) Outpatient follow up regarding whether he needs surgical re -evaluation. - Continue bb, statin. bp control as clair. ckd (1.3-1.7) - acute worsening in setting of overdiuresis, now improved. Losartan increased today 07/15.
--- NOTE | 2016-07-15 11:11 | PN ---
Progress Note, Physician History of Present Illness: pulmonary alert,still dyspneic,O2 sat 92% on o2 - Current Medication List Current Medications: Active Medications Aclidinium [place] (Tudorza -) 1 puff IH BID ARI Albuterol/Ipratropium (Duoneb -) 1 amp NEB Q4H PRN PRN Reason: SHORTNESS OF BREATH Last Admin: 07/15/16 00:00 Dose: 1 amp Amlodipine Besylate (Norvasc -) 5 mg PO DAILY [facility] Last Admin: 07/15/16 09:35 Dose: 5 mg Aspirin (Asa -) 81 mg PO DAILY [facility] Last Admin: 07/15/16 09:36 Dose: 81 mg Atenolol (Tenormin -) 25 mg PO DAILY [facility] Last Admin: 07/15/16 09:35 Dose: 25 mg Atorvastatin Calcium (Lipitor -) 20 mg PO HS [facility] Last Admin: 07/14/16 21:01 Dose: 20 mg Budesonide/Formoterol Fumarate (Symbicort 160/4.5mcg -) 2 puff IH BID [facility] Diphenhydramine HCl (Benadryl Injection -) 25 mg IVPB Q4H PRN PRN Reason: FOR ITCHING Docusate Sodium (Colace -) 100 mg PO TID [facility] Last Admin: 07/15/16 06:01 Dose: 100 mg Folic Acid (Folic Acid -) 1 mg PO DAILY [facility] Last Admin: 07/15/16 09:34 Dose: 1 mg Furosemide (Lasix -) 80 mg PO DAILY [facility] Last Admin: 07/15/16 09:35 Dose: 80 mg Hydralazine HCl (Apresoline -) 100 mg PO TID [facility] Last Admin: 07/15/16 06:01 Dose: 100 mg Ceftriaxone Sodium (Rocephin 1gm Ivpb (Pre-Docked)) 50 mls @ 100 mls/hr IVPB DAILY [facility] Last Admin: 07/15/16 09:35 Dose: 100 mls/hr Losartan Potassium (Cozaar -) 50 mg PO DAILY [facility] Last Admin: 07/15/16 09:35 Dose: 50 mg Melatonin (Melatonin) 5 mg PO HS PRN Last Admin: 07/14/16 21:02 Dose: 5 mg Polyethylene Glycol (Miralax (For Daily Use) -) 17 gm PO DAILY [facility] Last Admin: 07/15/16 09:36 Dose: 17 gm Potassium Chloride (K-Dur -) 20 meq PO DAILY [facility] Last Admin: 07/15/16 09:36 Dose: 20 meq Terazosin HCl (Hytrin -) 2 mg PO HS [facility] Last Admin: 07/14/16 21:01 Dose: 2 mg Warfarin Sodium (Coumadin -) 2 mg PO DAILY@1800 [facility] Last Admin: 07/14/16 18:57 Dose: 2 mg - Objective Vital Signs: Vital Signs Temperature 98.6 F 07/15/16 08:00 Pulse Rate 85 07/15/16 09:28 Respiratory Rate 20 07/15/16 08:00 Blood Pressure 164/68 07/15/16 08:00 O2 Sat by Pulse Oximetry (%) 94 L 07/15/16 09:28 Constitutional: Yes: Well Nourished, Calm Eyes: Yes: WNL HENT: Yes: WNL Neck: Yes: WNL Cardiovascular: Yes: Pulse Irregular, S1, S2 Respiratory: Yes: Rales, Rhonchi, Wheezes (scattered rhonchi and wheezes) Labs: CBC, BMP 07/14/16 10:40 07/15/16 05:48 INR, PTT INR 2.25 (0.82-1.09) H 07/13/16 09:10 Assessment/Plan A/P Acute on Chronic LV Diastolic Heart Failure Pneumonia CAD Atrial Fibrillation CKD s/p AVR AAA PAD PUL HTN - lasix - monitor urine output, creatinine - daily weights, I/Os - rate control - continue anticoagulation - continue antibiotics - O2 to keep spO2 >90% - inhaled bronchodilators - outpt PFTs - f/u chest x-rays - solumedrol x 24 hrs Problem List - Problems (1) Acute on chronic diastolic (congestive) heart failure Code(s): I50.33 - ACUTE ON CHRONIC DIASTOLIC (CONGESTIVE) HEART FAILURE (2) Pneumonia Code(s): J18.9 - PNEUMONIA, UNSPECIFIED ORGANISM (3) Atrial fibrillation Code(s): I48.91 - UNSPECIFIED ATRIAL FIBRILLATION (4) CAD (coronary artery disease) Code(s): I25.10 - ATHSCL HEART DISEASE OF [place] CORONARY ARTERY W/O ANG PCTRS (5) PAD (peripheral artery disease) Code(s): I73.9 - PERIPHERAL VASCULAR DISEASE, UNSPECIFIED
[2016-07-15] MEDS: BUDESONIDE/FORMETEROL FUMARATE 160/4.5 mcg INHALER IH SCH ×2 (11:25→21:41)
[2016-07-15] MEDS: ACLIDINIUM BROMIDE 400 MCG/INH AERO.POWD IH SCH ×2 (11:26→21:42)
[2016-07-15] MEDS ORDERED: LOSARTAN POTASSIUM 50 MG TABLET (FP) PO ONE (11:45)
[2016-07-15 12:19] LABS: INR 2.15 (0.82-1.09)
[2016-07-15] MEDS: WARFARIN NA 2 MG TABLET (UD) PO SCH (17:57)
[2016-07-15] MEDS ORDERED: amLODIPine BESYLATE 5 MG TABLET (FP) PO ONE (18:14)
[2016-07-15] MEDS: methylPREDNISolone NA SUCC 40 MG/1 ML VIAL IVPB SCH (21:38)
[2016-07-15] MEDS: TERAZOSIN HCL 1 MG CAPSULE PO SCH (21:40)
[2016-07-15] MEDS: ATORVASTATIN CA 20 MG TABLET (FP) PO SCH (21:41)
[2016-07-15] MEDS: MELATONIN 5 MG TABLETS PO PRN (21:49)
[2016-07-16] MEDS: methylPREDNISolone NA SUCC 40 MG/1 ML VIAL IVPB SCH ×3 (01:02→10:13)
[2016-07-16] MEDS: DOCUSATE SODIUM 100 MG CAPSULE (FP) PO SCH (05:54)
[2016-07-16] MEDS: hydrALAZINE HCL 50 MG TABLET (FP) PO SCH (05:54)
[2016-07-16 06:16] VITALS: PULSE 66
[2016-07-16 07:07] LABS: INR 1.96 (0.82-1.09); PROTHROMBIN TIME (PATIENT) 21.9 SEC (9.98-11.88)
[2016-07-16 07:34] LABS: CALCIUM 8.3 mg/dL (8.5-10.1); CREATININE 1.5 mg/dL (0.7-1.3)
--- NOTE | 2016-07-16 07:51 | DS ---
Physical Examination Vital Signs: Vital Signs Temperature 97.7 F 07/16/16 06:00 Pulse Rate 66 07/16/16 06:00 Respiratory Rate 20 07/16/16 06:00 Blood Pressure 157/80 07/16/16 06:00 O2 Sat by Pulse Oximetry (%) 93 L 07/15/16 21:00 Cardiovascular: Yes: Murmur, S1, S2 Respiratory: Yes: Diminished, On Nasal O2 Gastrointestinal: Yes: Normal Bowel Sounds, Soft Labs: CBC, BMP 07/14/16 10:40 07/16/16 05:35 Discharge Summary Reason For Visit: CHEST PAIN Current Active Problems Acute on chronic diastolic (congestive) heart failure (Acute) Atrial fibrillation (Acute) CAD (coronary artery disease) (Acute) Chest pain (Acute) Congestive heart failure (Acute) PAD (peripheral artery disease) (Acute) Pneumonia (Acute) Hospital Course: 85 year old male with a history of CAD s/p [place] 1997, s/p CABG x 3 1983 an 1997, bovine Aortic valve replacement x 2 (1983, 1998), DVT 1998, Afib (on coumadin), PVD s/p right LE stent, TIA s/p Right CA, HTN, HLD, AAA, Chronic Kidney disease and R great toe pseudomonal osteomyelitis who presents to the ER with a complaint of chest pain and shortness of breath. Pt states his symptoms have been present for the past 4 days. Pain is described as pressure, located in the left chest, no radiation to the arm, jaw or back Pain is 7/10 Pt states when his symptoms began, he was seen by Dr Toth who increased his Lasix from 20mg daily to 40 mg po BID Despite this, he states his breathing worsened He has noted no fevers or chills No cough or sputum production THIS AM BETTER - Past Medical History Cardiovascular: Yes: AFIB, CAD, HTN Renal/: Yes: Renal Inusuff - Smoking History Smoking history: Former smoker Have you smoked in the past 12 months: No Aproximately how many cigarettes per day: 0 If you are a former smoker, when did you quit?: 45 years ago (1) Acute on chronic diastolic (congestive) heart failure Assessment/Plan: IV LASIX--TO PO MONITOR LABS CXR CARDIO BNP 6047 Code(s): I50.33 - ACUTE ON CHRONIC DIASTOLIC (CONGESTIVE) HEART FAILURE (2) Atrial fibrillation Assessment/Plan: AC Code(s): I48.91 - UNSPECIFIED ATRIAL FIBRILLATION (3) CAD (coronary artery disease) Assessment/Plan: STABLE Troponin, BNP 07/11/16 07/11/16 07/11/16 14:35 14:35 21:30 Troponin I 0.02 D 0.02 B-Natriuretic Peptide 6407.76 H 07/12/16 06:00 Troponin I 0.02 B-Natriuretic Peptide Code(s): I25.10 - ATHSCL HEART DISEASE OF [place] CORONARY ARTERY W/O ANG PCTRS (4) Pneumonia Assessment/Plan: IV ABX--TO PO CXR NOTED--CT SCAN WITH INFILTRATES Code(s): J18.9 - PNEUMONIA, UNSPECIFIED ORGANISM (5) PULM NODULES Assessment/Plan: OUTPATIENT F/U (6) DILATED AORTIC ROOT Assessment/Plan: OUTPATIENT F/U (7) VALVULAR HEART DS Assessment/Plan: OUTPATIENT F/U (8) COPD Assessment/Plan: OUTPATIENT F/U STEROIDS INHALERS Condition: Stable - Instructions Referrals: Linh Mobley MD [Primary Care Provider] - 1 Week Disposition: HOME - Home Medications Comprehensive Discharge Medication List: Ambulatory Orders Amlodipine Besylate [Norvasc -] 5 mg PO DAILY 11/13/14 Atenolol [Tenormin -] 25 mg PO BID 11/13/14 Atorvastatin Ca [Lipitor] 20 mg PO HS 11/13/14 Cholecalciferol (Vitamin D3) [Vitamin D3 -] 1,000 unit PO DAILY 11/13/14 Cyanocobalamin [Vitamin B12 -] 2,000 mcg PO DAILY 11/13/14 Docusate Sodium [Colace] 100 mg PO TID 11/13/14 Folic Acid - 1 mg PO DAILY 11/13/14 Hydralazine HCl 100 mg PO TID 11/13/14 Terazosin HCl 2 mg PO HS 11/13/14 Warfarin Sodium [Coumadin] 2 mg PO HS 11/13/14 Ascorbate Calcium [Vitamin C] 500 mg PO DAILY 07/11/16 Bifidobacterium Infantis [Align Jr] 10.5 mg PO DAILY 07/11/16 Losartan Potassium [Cozaar -] 50 mg PO DAILY 07/11/16 Potassium Chloride 20 meq PO DAILY 07/11/16 Albuterol 2.5/Ipratropium 0.5 [Duoneb -] 1 amp NEB Q4H PRN #120 amp 07/14/16 Furosemide [Lasix -] 80 mg PO DAILY tablet 07/14/16 Budesonide/Formeterol Fumarate [SYMBICORT 160/4.5mcg -] 2 puff IH BID #1 inhaler 07/15/16 Cefuroxime Axetil [Ceftin -] 500 mg PO Q12H #10 tablet 07/15/16 Tiotropium [place] [Spiriva] 1 puff IH DAILY #30 inh 07/15/16 Prednisone 10 mg PO DAILY #60 tab.ds.pk 07/16/16
[2016-07-16 09:01] VITALS: BP 142/84; TEMP 97.2
[2016-07-16] MEDS ORDERED: amLODIPine BESYLATE 10 MG TABLET (FP) PO SCH (10:00)
[2016-07-16] MEDS ORDERED: LOSARTAN POTASSIUM 50 MG TABLET (FP) PO SCH (10:00)
[2016-07-16] MEDS: ASPIRIN 81 MG CHEWABLE TABLETS PO SCH (10:10)
[2016-07-16] MEDS: FUROSEMIDE 40 MG TABLET (FP) PO SCH (10:11)
[2016-07-16] MEDS: FOLIC ACID 1 MG TABLET (FP) PO SCH (10:11)
[2016-07-16] MEDS: POTASSIUM CHLORIDE TABS 20 MEQ TABLET.ER (FP) PO SCH (10:11)
[2016-07-16] MEDS: POLYETHYLENE GLYCOL 3350 119 GM BTL PO SCH (10:12)
[2016-07-16] MEDS: CEFTRIAXONE 50 ML IVPB SCH (10:12)
[2016-07-16] MEDS: BUDESONIDE/FORMETEROL FUMARATE 160/4.5 mcg INHALER IH SCH (10:13)
--- NOTE | 2016-07-16 10:32 | PN ---
Progress Note (short form) - Note Progress Note: s: no cp sob palps dizzy; feels well, going home today o: Vital Signs Period Temp Pulse Resp BP Sys/Hernandez Pulse Ox Last 24 Hr 97.1 F-98.3 F 53-66 16-22 138-160/69-84 93-93 Constitutional: Yes: No Distress, Calm Eyes: No: Sclera Icterus Cardiovascular: Yes: Pulse Irregular, JVD elevated likely 2/2 TR. nl S1, S2, Other (PMI non diplaced). 2/6 murmur at lsb Respiratory: cta bl nl eff Extremities: No: Cold Edema: no le e/c/c Integumentary: No: Jaundice diaphoresis Neurological: Yes: Alert, Oriented (x3) Psychiatric: No: Agitated Current Medications Generic Name Dose Route Start Last Admin Trade Name Freq PRN Reason Stop Dose Admin Aclidinium [place] 1 puff 07/15/16 10:00 07/15/16 21:42 Tudorza - IH 1 puff BID ARI Administration Albuterol/Ipratropium 1 amp 07/12/16 10:36 07/15/16 00:00 Duoneb - NEB 1 amp Q4H PRN Administration SHORTNESS OF BREATH Amlodipine Besylate 10 mg 07/16/16 10:00 07/16/16 10:12 Norvasc - PO 10 mg DAILY ARI Administration Aspirin 81 mg 07/12/16 10:00 07/16/16 10:10 Asa - PO 81 mg DAILY ARI Administration Atorvastatin Calcium 20 mg 07/11/16 22:00 07/15/16 21:41 Lipitor - PO 20 mg HS ARI Administration Budesonide/Formoterol Fumarate 2 puff 07/15/16 10:00 07/16/16 10:13 Symbicort 160/4.5mcg - IH 2 puff BID ARI Administration Diphenhydramine HCl 25 mg 07/15/16 09:26 Benadryl Injection - IVPB Q4H PRN FOR ITCHING Docusate Sodium 100 mg 07/11/16 22:00 07/16/16 05:54 Colace - PO Not Given TID ARI Folic Acid 1 mg 07/12/16 10:00 07/16/16 10:11 Folic Acid - PO 1 mg DAILY ARI Administration Furosemide 80 mg 07/14/16 10:00 07/16/16 10:11 Lasix - PO 80 mg DAILY ARI Administration Hydralazine HCl 100 mg 07/11/16 22:00 07/16/16 05:54 Apresoline - PO 100 mg TID ARI Administration Ceftriaxone Sodium 50 mls @ 100 mls/hr 07/12/16 11:45 07/16/16 10:12 Rocephin 1gm Ivpb (Pre-Docked) IVPB 100 mls/hr DAILY ARI Administration Losartan Potassium 100 mg 07/16/16 10:00 07/16/16 10:10 Cozaar - PO 100 mg DAILY ARI Administration Melatonin 5 mg 07/11/16 21:30 07/15/16 21:49 Melatonin PO 5 mg HS PRN Administration Methylprednisolone Sodium Succinate 40 mg 07/15/16 21:00 07/16/16 10:13 Solu-Medrol - IVPB 40 mg Q8H-IV ARI Administration Polyethylene Glycol 17 gm 07/12/16 10:00 07/16/16 10:12 Miralax (For Daily Use) - PO 17 gm DAILY ARI Administration Potassium Chloride 20 meq 07/12/16 10:00 07/16/16 10:11 K-Dur - PO 20 meq DAILY ARI Administration Terazosin HCl 2 mg 07/12/16 00:30 07/15/16 21:40 Hytrin - PO 2 mg HS ARI Administration Warfarin Sodium 2 mg 07/11/16 18:00 07/15/16 17:57 Coumadin - PO 2 mg DAILY@1800 ARI Administration CBC, BMP 07/14/16 10:40 07/16/16 05:35 tele: afib, rate controlled cxr: pulmonary venous congestion, likely superimposed RLL infiltrate images and report reviewed. CT chest: moderate non-consolidative infiltrates throughtout R lung with assoc small rt effusion. platelike and nodular atelecatsis at left base/lingula (can't exclude underlying mass) no pulmonary edema seen. 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 images and report reviewed (by dr dong). Echo: normal LV and RV size and fxn ; mod ricardo. 1+ MR. bio avr well-seated. mod-severe TR with severe pulm HTN. asc ao 4.8 cm --> by my review SC end-diastolic pressure increased c/w elevated LAP. RV significantly dilated measuring 5.1-5.8 cm. Nl function. TR likely moderate. AVR gradients not signficantly elevated. echo 09/2015: nl lv/rv, mild lae, nl bio avr, mild tr, mild-mod phtn cta 2006: patent knowles/shaggy, occluded svg to OM Mibi 2011: possible minimal inferolateral ischemia abd us 01/2016: 4.8 cm AAA a/p: 85 m hx pafib (on coumadin), cad s/p inferior [place] 1997, s/p cabg x3 1983 and 1997, bio avr (1983 and 1997), hld, htn, tia, s/p right cea, pad with severe bl le dz s/p stenting and bypass, AAA, DM, ckd (1.3-1.7), obesity, dvt, hcv, here with progressive sob. SOB/severe pHTN: acute diast chf, ? PNA (Tmax 100.1, normal WBCs, radiographic suggestion of infiltrate) -Symptoms here likely from pna, did not seem chf related -pt feeling better now, cont abx per PMD -Echo reviewed. Likely that acute pulmonary infection/hypoxia caused acute worsening of underlying pulmonary hypertension. Pulmonary hypertension most likely 2/2 diastolic heart failure. For severe phtn, would manage hypoxia/pna per pmd pulm. -pt should have outpt sleep study and pulmonary follow up to r/o ROEL and/or underlying pulmonary conditions contributing to pulm HTN -will also have outpt echo to monitor phtn once acute resp issues have fully resolved. Diastolic dysfunction with secondary pulmonary hypertension. - currently with increased filling pressures, but not grossly volume overloaded. Would continue with po lasix. - Exacerbation of pulmonary hypertension as mentioned above 2/2 pneumonia. Avoid hypoxia. Management per pmd/pulm. - bp control Pafib (on coumadin): - Rate controlled on BB, but was in SVR here--atenolol dose decreased --> remains in svr. Would hold atenolol dose. - AC with coumadin. Dosing per inr. cad s/p inferior [place] 1997, s/p cabg x3 1983 and 1997: - + cp likely 2/2 pna. EKG without acute ischemic changes. trop neg x 3. - Continue current medical management. ASA added here. s/p bio avr - nl function based on exam. Repeat echo does not mention gradients. htn: - cont current meds pad, s/p cea, s/p le bypass/stenting: - Claudication is stable. Pt has been evaluated by several vascular surgeons in the past and his le dz is deemed non revascularizable. Recent carotid US shows stable disease, no new sxs. Continue current cardiac meds. AAA/ascending aorta dilation: - Has been stable on serial non con chest/abd ct's over the past years and stable on recent abd US. Has seen vascular in past and they felt he is not a surgical candidate due to high risk. CT chest here shows distal descending 5.6 x 5.4. (progression) Outpatient follow up regarding whether he needs surgical re -evaluation. - Continue bb, statin. bp control as clair. ckd (1.3-1.7) - acute worsening in setting of overdiuresis, now improved. cardiac patrick stable for dc, will f/u with me 1-2 weeks
[2016-07-16] MEDS: ACLIDINIUM BROMIDE 400 MCG/INH AERO.POWD IH SCH ×2 (11:05→11:16)
--- NOTE | 2016-07-16 11:32 | PN ---
Progress Note, Physician History of Present Illness: pulmnonary alert,feeling better,dyspnea improved,ambulating, - Current Medication List Current Medications: Active Medications Aclidinium [place] (Tudorza -) 1 puff IH BID [facility] Last Admin: 07/16/16 11:16 Dose: Not Given Albuterol/Ipratropium (Duoneb -) 1 amp NEB Q4H PRN PRN Reason: SHORTNESS OF BREATH Last Admin: 07/15/16 00:00 Dose: 1 amp Amlodipine Besylate (Norvasc -) 10 mg PO DAILY [facility] Last Admin: 07/16/16 10:12 Dose: 10 mg Aspirin (Asa -) 81 mg PO DAILY [facility] Last Admin: 07/16/16 10:10 Dose: 81 mg Atorvastatin Calcium (Lipitor -) 20 mg PO HS [facility] Last Admin: 07/15/16 21:41 Dose: 20 mg Budesonide/Formoterol Fumarate (Symbicort 160/4.5mcg -) 2 puff IH BID [facility] Last Admin: 07/16/16 10:13 Dose: 2 puff Diphenhydramine HCl (Benadryl Injection -) 25 mg IVPB Q4H PRN PRN Reason: FOR ITCHING Docusate Sodium (Colace -) 100 mg PO TID [facility] Last Admin: 07/16/16 05:54 Dose: Not Given Folic Acid (Folic Acid -) 1 mg PO DAILY [facility] Last Admin: 07/16/16 10:11 Dose: 1 mg Furosemide (Lasix -) 80 mg PO DAILY [facility] Last Admin: 07/16/16 10:11 Dose: 80 mg Hydralazine HCl (Apresoline -) 100 mg PO TID [facility] Last Admin: 07/16/16 05:54 Dose: 100 mg Ceftriaxone Sodium (Rocephin 1gm Ivpb (Pre-Docked)) 50 mls @ 100 mls/hr IVPB DAILY [facility] Last Admin: 07/16/16 10:12 Dose: 100 mls/hr Losartan Potassium (Cozaar -) 100 mg PO DAILY [facility] Last Admin: 07/16/16 10:10 Dose: 100 mg Melatonin (Melatonin) 5 mg PO HS PRN Last Admin: 07/15/16 21:49 Dose: 5 mg Methylprednisolone Sodium Succinate (Solu-Medrol -) 40 mg IVPB Q8H-IV [facility] Last Admin: 07/16/16 10:13 Dose: 40 mg Polyethylene Glycol (Miralax (For Daily Use) -) 17 gm PO DAILY [facility] Last Admin: 07/16/16 10:12 Dose: 17 gm Potassium Chloride (K-Dur -) 20 meq PO DAILY [facility] Last Admin: 07/16/16 10:11 Dose: 20 meq Terazosin HCl (Hytrin -) 2 mg PO HS [facility] Last Admin: 07/15/16 21:40 Dose: 2 mg Warfarin Sodium (Coumadin -) 2 mg PO DAILY@1800 [facility] Last Admin: 07/15/16 17:57 Dose: 2 mg - Objective Vital Signs: Vital Signs Temperature 97.2 F L 07/16/16 07:15 Pulse Rate 66 07/16/16 07:15 Respiratory Rate 20 07/16/16 08:24 Blood Pressure 142/84 07/16/16 07:15 O2 Sat by Pulse Oximetry (%) 93 L 07/16/16 11:01 Constitutional: Yes: Well Nourished, Calm Eyes: Yes: WNL HENT: Yes: WNL Neck: Yes: WNL Cardiovascular: Yes: Pulse Irregular, S1, S2 Respiratory: Yes: Diminished Gastrointestinal: Yes: Normal Bowel Sounds, Soft Extremities: Yes: WNL Edema: No Labs: CBC, BMP 07/14/16 10:40 07/16/16 05:35 INR, PTT INR 1.96 (0.82-1.09) H 07/16/16 05:35 Assessment/Plan A/P Acute on Chronic LV Diastolic Heart Failure Pneumonia CAD Atrial Fibrillation CKD s/p AVR AAA PAD PUL HTN - lasix - monitor urine output, creatinine - rate control - continue anticoagulation - antibiotics - O2 to keep spO2 >90% - inhaled bronchodilators - outpt PFTs - outpatient pulmonary rehab Problem List - Problems (1) Acute on chronic diastolic (congestive) heart failure Code(s): I50.33 - ACUTE ON CHRONIC DIASTOLIC (CONGESTIVE) HEART FAILURE (2) Pneumonia Code(s): J18.9 - PNEUMONIA, UNSPECIFIED ORGANISM (3) Atrial fibrillation Code(s): I48.91 - UNSPECIFIED ATRIAL FIBRILLATION (4) CAD (coronary artery disease) Code(s): I25.10 - ATHSCL HEART DISEASE OF [place] CORONARY ARTERY W/O ANG PCTRS (5) PAD (peripheral artery disease) Code(s): I73.9 - PERIPHERAL VASCULAR DISEASE, UNSPECIFIED
[2016-07-16] MEDS ORDERED: diphenhydrAMINE HCL 25 MG CAPSULE (FP) PO ONE (11:40)
== END 2016-07-16 13:18 | disposition home or self-care (01) | DRG 291 ==
LOC: JER 14:24 → JICU 17:10 → JERBED 17:10 → J4W 19:05
PROVIDERS: ADMIT Family Medicine; ATTEND Family Medicine
PROC: 5A09357 Assistance with Respiratory Ventilation, Less than 24 Consecutive Hours, Continuous Positive Airway Pressure (ICD-10-PCS; principal; 2016-07-11)
PROC: 3E0F7GC Introduction of Other Therapeutic Substance into Respiratory Tract, Via Natural or Artificial Opening (ICD-10-PCS; 2016-07-11)
DX: I13.0 Hypertensive heart and chronic kidney disease with heart failure and stage 1 through stage 4 chronic kidney disease, or unspecified chronic kidney disease (principal); I50.33 Acute on chronic diastolic (congestive) heart failure; J18.9 Pneumonia, unspecified organism; I73.9 Peripheral vascular disease, unspecified; I25.10 Atherosclerotic heart disease of native coronary artery without angina pectoris; Z95.1 Presence of aortocoronary bypass graft; Z95.2 Presence of prosthetic heart valve; I25.2 Old myocardial infarction; E78.00 Pure hypercholesterolemia, unspecified; Z87.891 Personal history of nicotine dependence; I48.0 Paroxysmal atrial fibrillation; Z79.01 Long term (current) use of anticoagulants; N18.9 Chronic kidney disease, unspecified; I27.2 Other secondary pulmonary hypertension; I71.4 Abdominal aortic aneurysm, without rupture; R09.02 Hypoxemia; Z86.718 Personal history of other venous thrombosis and embolism
CPT/HCPCS: 36415; 36600; 71010-TC; 71250-TC; 80048; 80053; 80061; 81003; 82550; 82803; 83036; 83721; 83735; 83880; 84443; 84484; 85025; 85610; 87086; 87324; 87449; 93005; 93010; 93306-TC; 94640; 94660; 94761; 99285-25

== ENCOUNTER 2017-06-16 17:38 | Inpatient (IN) | payer OTHER, MEDICARE ==
--- NOTE | 2017-06-16 18:11 | PDOC ---
History of Present Illness - General History Source: Patient, Family, Old Records Exam Limitations: No Limitations - History of Present Illness Initial Comments: 06/16/17 18:45 The patient is a 86 year old male presenting with his , with a significant past medical history of COPD (on O2 3L daily), HLD, osteomylitis, DVT, CHF, HTN , TIA, anemia, CABG, valve replacement and diabetes, who presents to the emergency department with shortness of breath for the last few days. He also reports some mild diarrhea associated with his chief complaint, which is nonbloody. The patient denies chest pain, headache and dizziness. Denies fever, chills, vomit, and constipation. Denies dysuria, frequency, urgency and hematuria. Allergies: Red and black pepper, penicillin Past surgical history: CABG, 1997 AORTIV VALVE REPLACED,TRIPLE BYPASS IN 1997 Social history: Former smoker. 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 Del Rosario PMD: Dr. Mobley <Sean Rashid - Last Filed: 06/16/17 18:49> <Dorita Bhakta - Last Filed: 06/16/17 22:11> - General Chief Complaint: Shortness of Breath Stated Complaint: CHF Time Seen by Provider: 06/16/17 18:02 Past History <Sean Rashid - Last Filed: 06/16/17 18:49> - Past Medical History Anemia: Yes Asthma: No Cancer: No Cardiac Disorders: Yes (CABG, valve replacement) CVA: Yes () COPD: No CHF: Yes DVT: Yes Dementia: No Diabetes: Yes GI Disorders: No Disorders: No HTN: Yes Hypercholesterolemia: Yes Liver Disease: No Seizures: No Thyroid Disease: No - Surgical History Abdominal Surgery: No Appendectomy: No Cardiac Surgery: Yes (CABG, 1997 AORTIV VALVE REPLACED,TRIPLE BYPASS IN 1997) Cholecystectomy: No Lung Surgery: No Neurologic Surgery: No Orthopedic Surgery: No - Immunization History Td Vaccination: Yes Immunization Up to Date: Yes - Suicide/Smoking/Psychosocial Hx Smoking Status: Yes (40 YRS QUIT) Smoking History: Former smoker Have you smoked in the past 12 months: No Number of Cigarettes Smoked Daily: 0 If you are a former smoker, when did you quit?: 45 years ago 'Breaking Loose' booklet given: 10/10/12 Hx Alcohol Use: No Drug/Substance Use Hx: No Substance Use Type: None Hx Substance Use Treatment: No <Dorita Bhakta - Last Filed: 06/16/17 22:11> - Past Medical History Allergies/Adverse Reactions: Allergies Allergy/AdvReac Type Severity Reaction Status Date / Time black pepper Allergy Verified 06/16/17 17:56 Penicillins Allergy Rash Verified 06/16/17 17:56 RED PEPPER Allergy Uncoded 06/16/17 17:56 Home Medications: Ambulatory Orders Albuterol 2.5/Ipratropium 0.5 [Duoneb -] 1 neb NEB Q4H 06/16/17 Amlodipine Besylate [Norvasc -] 5 mg PO DAILY 06/16/17 Ascorbic Acid [Vitamin C] 500 mg PO DAILY 06/16/17 Atenolol [Tenormin -] 25 mg PO BID 06/16/17 Atorvastatin Ca [Lipitor] 20 mg PO HS 06/16/17 Bifidobacterium Infantis [Align] 10.5 mg PO DAILY 06/16/17 Budesonide/Formeterol Fumarate [SYMBICORT 160/4.5mcg -] 1 inh PO BID 06/16/17 Cholecalciferol (Vitamin D3) [Vitamin D] 2,000 unit PO DAILY 06/16/17 Cyanocobalamin [Vitamin B12 -] 100 mcg PO DAILY 06/16/17 Docusate Sodium [Colace] 100 mg PO TID 06/16/17 Furosemide [Lasix] 40 mg PO BID 06/16/17 Ipratropium [place] [Atrovent Hfa] 17 mcg IH DAILY 06/16/17 Losartan Potassium 50 mg PO DAILY 06/16/17 Potassium Chloride 20 meq PO BID 06/16/17 Terazosin HCl 2 mg PO DAILY 06/16/17 Warfarin Sodium [Coumadin] 2 mg PO DAILY 06/16/17 Respiratory Specific PMHX - Complaint Specific PMHX Angina: No <Dorita Bhakta - Last Filed: 06/16/17 22:11> Review of Systems - Review of Systems Able to Perform ROS?: Yes Comments:: 06/16/17 18:46 GENERAL/CONSTITUTIONAL: No fever or chills. No weakness. HEAD, EYES, EARS, NOSE AND THROAT: No change in vision. No ear pain or discharge. No sore throat.- CARDIOVASCULAR: (+) Shortness of breath. No chest pain RESPIRATORY: No cough, wheezing, or hemoptysis. GASTROINTESTINAL: (+) Diarrhea. No nausea, vomiting, or constipation. GENITOURINARY: No dysuria, frequency, or change in urination. MUSCULOSKELETAL: No joint or muscle swelling or pain. No neck or back pain. SKIN: No rash NEUROLOGIC: No headache, vertigo, loss of consciousness, or change in strength/ sensation. ENDOCRINE: No increased thirst. No abnormal weight change HEMATOLOGIC/LYMPHATIC: No anemia, easy bleeding, or history of blood clots. ALLERGIC/IMMUNOLOGIC: No hives or skin allergy. <Sean Rashid - Last Filed: 06/16/17 18:49> *Physical Exam - Physical Exam Comments: 06/16/17 18:46 GENERAL: Awake, alert, and fully oriented, in no acute distress HEAD: No signs of trauma, normocephalic, atraumatic EYES: PERRLA, EOMI, sclera anicteric, conjunctiva clear ENT: Auricles normal inspection, hearing grossly normal, nares patent, oropharynx clear without exudates. Moist mucosa NECK: Normal ROM, supple, no lymphadenopathy, JVD, or masses LUNGS: (+) Crackles left lower base with some fine rales. No distress, speaks full sentences, clear to auscultation bilaterally HEART: Regular rate and rhythm, normal S1 and S2, no murmurs, rubs or gallops, peripheral pulses normal and equal bilaterally. ABDOMEN: (+) Slightly distended abdomen Soft, nontender, normoactive bowel sounds. No guarding, no rebound. No masses EXTREMITIES : (+) Chronic venous stasis. 3+ Pitting edema bilateral lower extremities. Normal range of motion. No clubbing or cyanosis. NEUROLOGICAL: Cranial nerves II through XII grossly intact. Normal speech, no focal sensorimotor deficits SKIN: Warm, Dry, normal turgor, no rashes or lesions noted. <Sean Rashid - Last Filed: 06/16/17 18:49> Heart Score/ECG Review #1 ECG reviewed & interpreted by me at: 18:49 06/16/17 18:36 Ventricular Rate: 64 bpm Atrial Fibrillation with premature ventricular or aberrantly conducted complexes. Anterior infarct, age undetermined <Sean Rashid - Last Filed: 06/16/17 18:49> - History History: Moderately suspicious - Electrocardiogram EKG: Non specific repolarization disturbance - Age Age: >/= 65 - Risk Factors Risk Factors Heart Score: Yes Hx Hypercholesterolemia, Yes Hx Hypertension, Yes Hx Obesity Based on the list above the patient has:: >/=3 risk factors or Hx atherosclerotic disease - Troponin Troponin: </= normal limit - Score Heart Score - Total: 6 #1 General ECG Interpretation: Normal Rate Compared to previous ECG there are: Changes noted - ECG Intrepretation Rhythm: Irregularly Irregular - P and [place] Delta Wave(s) Present: No WPW: No - ST and T ST Depression Suggest: Ischemia (second ekg done when he had chest pain and shows st depression V1 V2) <Dorita Bhakta - Last Filed: 06/16/17 22:11> ED Treatment Course - LABORATORY CBC & Chemistry Diagram: 06/16/17 19:00 06/16/17 19:00 <Dorita Bhakta - Last Filed: 06/16/17 22:11> Medical Decision Making - Medical Decision Making 06/16/17 22:05 86-year-old male presents with increasing dyspnea. Patient has some scattered wheezing and crackles on his left lower base. Patient has a history of COPD and is oxygen dependent at home. He uses 3 L nasal cannula at baseline. He has a history of aortic valve replacement in 1983 , 1984 and 1997. He has had severe bilateral lower extremity disease status post stenting and bypass, AAA, diabetes, chronic kidney disease with creatinine of 1.3-1.7, CBC, DVT, HCV, and prior MIs and he is on Coumadin for A. fib Chest x-ray shows significant consolidation. Pt started on antibiotics She'll EKG was rate controlled A. fib but then he later developed chest pain and a second EKG just shows some ST depression. Initial troponin was negative. I did speak to his forest resource specialist, Dr. Ocasio anything to telemetry admission. The hospitalist is admitting doctor ,they are covering for Dr Mobley/[facility] Patient has been complaining of increasing lower extremity edema, weight gain. He is on Lasix and he did receive Lasix IV push in the emergency department Impression patient is being admitted for pneumonia, worsening CHF and COPD -while in the ER he developed chest pain and was given sublingual nitroglycerin , aspirin -Dr Cespedes was consulted and agrees to telemetry admission <Dorita Bhakta - Last Filed: 06/16/17 22:11> *DC/Admit/Observation/Transfer - Attestations Scribe Attestion: 06/16/17 18:47 Documentation prepared by Sean Rashid, acting as medical laboratory manager for Dorita Bhakta MD <Sean Rashid - Last Filed: 06/16/17 18:49> - Discharge Dispostion Admit: Yes <Dorita Bhakta - Last Filed: 06/16/17 22:11> Diagnosis at time of Disposition: Atrial fibrillation Qualifiers: Atrial fibrillation type: chronic Qualified Code(s): I48.2 - Chronic atrial fibrillation CHF (congestive heart failure) Qualifiers: Congestive heart failure type: unspecified Congestive heart failure chronicity : acute Qualified Code(s): I50.9 - Heart failure, unspecified Chronic renal insufficiency Qualifiers: Chronic kidney disease stage: unspecified stage Qualified Code(s): N18.9 - Chronic kidney disease, unspecified - Referrals Referrals: Linh Mobley MD [Primary Care Provider] -
[2017-06-16] MEDS ORDERED: methylPREDNISolone NA SUCC 125 MG/2 ML VIAL IVPB ONE (18:18)
[2017-06-16] MEDS ORDERED: ALBUTEROL SO4 2.5/IPRATROPIUM 0.5 INH SOL 3 ML VIAL.NEB. NEB ONE ×4 (18:18→21:35)
[2017-06-16] MEDS ORDERED: MAGNESIUM SULF 50% (8.12 MEQ/2 ML-1 GM VIAL) IVPB ONE (18:18)
[2017-06-16] MEDS ORDERED: methylPREDNISolone NA SUCC 125 MG/2 ML VIAL ONE (18:55)
[2017-06-16] MEDS ORDERED: MAGNESIUM SULF 50% (8.12 MEQ/2 ML-1 GM VIAL) ONE (18:55)
[2017-06-16] MEDS ORDERED: FUROSEMIDE 40 MG/4 ML INJECTABLE VIAL IVPUSH ONE (18:59)
[2017-06-16 19:20] LABS: BASO % 0.4 % (0-2.0); EOS % 3.3 % (0-4.5); HEMATOCRIT 28.5 % (35.4-49); HEMOGLOBIN 9.3 GM/dL (11.7-16.9); LYMPH % 8.9 % (8-40); MCH 28.7 pg (25.7-33.7); MCHC 32.6 g/dl (32.0-35.9); MEAN CELL VOLUME 88.1 fl (80-96); MEAN PLT VOLUME 8.7 fl (7.5-11.1); MONO % 9.2 % (3.8-10.2); NEUT % 78.2 % (42.8-82.8); PLATELET COUNT 131 K/MM3 (134-434); RBC 3.24 M/mm3 (4.00-5.60); RDW 19.4 % (11.9-15.9); WHITE BLOOD COUNT 6.5 K/mm3 (4.0-10.0)
[2017-06-16] MEDS ORDERED: FUROSEMIDE 40 MG/4 ML INJECTABLE VIAL ONE (19:25)
[2017-06-16 19:33] LABS: INR 2.36 (0.82-1.09); PROTHROMBIN TIME (PATIENT) 26.7 SEC (9.98-11.88)
[2017-06-16 19:44] LABS: ALBUMIN 3.4 g/dl (3.4-5.0); ALK PHOS 86 U/L (45-117); ANION GAP 7 (8-16); BILIRUBIN,TOTAL 0.7 mg/dL (0.2-1.0); BLOOD UREA NITROGEN 35 mg/dL (7-18); CALCIUM 8.1 mg/dL (8.5-10.1); CHLORIDE 105 mmol/L (98-107); CO2 27 mmol/L (21-32); CREATININE 1.4 mg/dL (0.7-1.3); GLUCOSE,RANDOM 97 mg/dL (74-106); POTASSIUM 4.1 mmol/L (3.5-5.1); SGOT/AST 23 U/L (15-37); SGPT/ALT 27 U/L (12-78); SODIUM 139 mmol/L (136-145)
[2017-06-16] MEDS ORDERED: ASPIRIN 81 MG CHEWABLE TABLETS PO ONE (20:46)
[2017-06-16] MEDS ORDERED: NITROGLYCERIN SUBLINGUAL 1/150 0.4 MG TAB SL ONE ×2 (20:47→21:13)
[2017-06-16] MEDS ORDERED: CEFTRIAXONE 1 GM in DEXTROSE 5%-WATER - 100 ML IVPB ONE (20:50)
[2017-06-16] MEDS ORDERED: ASPIRIN 81 MG CHEWABLE TABLETS ONE (20:52)
[2017-06-16] MEDS ORDERED: AZITHROMYCIN IVPB 500 MG in DEXTROSE 5%-WATER - 250 ML IVPB ONE (20:52)
[2017-06-16] MEDS ORDERED: CEFTRIAXONE 1 GM/50 ML BAG ONE (21:15)
--- NOTE | 2017-06-16 21:31 | HP ---
CHIEF COMPLAINT: SOB, cough, chest pain PCP: Itz, Cardio: Karen, Pulm: Miguel Ángel HISTORY OF PRESENT ILLNESS: This is an 86 year old male with a significant past medical history of COPD ( 3LO2NC), CAD, CABG who presented to the ED with a few day history of increased shortness of breath. He also reports weight gain and decreased urine output. He denies eating or drinking salty food. He also reports a dry cough and chest pain with inspiration. He denies fever or chills. Pt developed episode of increased persistent CP just prior to my arrival. Pain 10/10, given NTG with reduction to 5/10, ECG repeated with new ST depressions. ER course was notable for: (1) trop neg x1 (2) BNP elevated (3) CXR with JAYESH PNA Recent Travel: pt denies PAST MEDICAL HISTORY: COPD (3L O2 via NC at home), CHF, Afib, HTN, HLD, TIA, CAD, [place], anemia, DVT, CABG, valve replacement, severe PAD, AAA, CKD, BPH, HCV PAST SURGICAL HISTORY: 3vCABG 1983 bioprosthetic aortic valve 1983, 1997 R carotid endarterectomy B/L LE stenting and bypass Social History: Smoking: quit 45 years ago, 25 pack year history Alcohol: pt denies Drugs: pt denies Family History: mother age 83, dementia father 78, ? heart disease brother with stents and CAD sister with OA and dementia Allergies black pepper Allergy (Verified 06/16/17 17:56) Penicillins Allergy (Verified 06/16/17 17:56) Rash RED PEPPER Allergy (Uncoded 06/16/17 17:56) HOME MEDICATIONS: 3 Medication Instructions Recorded Albuterol 2.5/Ipratropium 0.5 1 neb NEB Q4H 06/16/17 [Duoneb -] Amlodipine Besylate [Norvasc -] 5 mg PO DAILY 06/16/17 Ascorbic Acid [Vitamin C] 500 mg PO DAILY 06/16/17 Atenolol [Tenormin -] 25 mg PO BID 06/16/17 Atorvastatin Ca [Lipitor] 20 mg PO HS 06/16/17 Bifidobacterium Infantis [Align] 10.5 mg PO DAILY 06/16/17 Budesonide/Formeterol Fumarate 1 inh PO BID 06/16/17 [SYMBICORT 160/4.5mcg -] Cholecalciferol (Vitamin D3) 2,000 unit PO DAILY 06/16/17 [Vitamin D] Cyanocobalamin [Vitamin B12 -] 100 mcg PO DAILY 06/16/17 Docusate Sodium [Colace] 100 mg PO TID 06/16/17 Furosemide [Lasix] 40 mg PO BID 06/16/17 Ipratropium [place] [Atrovent Hfa] 17 mcg IH DAILY 06/16/17 Losartan Potassium 50 mg PO DAILY 06/16/17 Potassium Chloride 20 meq PO BID 06/16/17 Terazosin HCl 2 mg PO DAILY 06/16/17 Warfarin Sodium [Coumadin] 2 mg PO DAILY 06/16/17 REVIEW OF SYSTEMS CONSTITUTIONAL: Absent: fever, chills, diaphoresis, generalized weakness, malaise, loss of appetite, weight change HEENT: Absent: rhinorrhea, nasal congestion, throat pain, throat swelling, difficulty swallowing, mouth swelling, ear pain, eye pain, visual changes CARDIOVASCULAR: Present: chest pain Absent: syncope, palpitations, irregular heart rate, lightheadedness, peripheral edema RESPIRATORY: Present: cough, shortness of breath, dyspnea with exertion Absent: orthopnea, wheezing, stridor, hemoptysis GASTROINTESTINAL: Absent: abdominal pain, abdominal distension, nausea, vomiting, diarrhea, constipation, melena, hematochezia GENITOURINARY: Absent: dysuria, frequency, urgency, hesitancy, hematuria, flank pain, genital pain MUSCULOSKELETAL: Absent: myalgia, arthralgia, joint swelling, back pain, neck pain SKIN: Absent: rash, itching, pallor HEMATOLOGIC/IMMUNOLOGIC: Absent: easy bleeding, easy bruising, lymphadenopathy, frequent infections ENDOCRINE: Absent: unexplained weight gain, unexplained weight loss, heat intolerance, cold intolerance NEUROLOGIC: Absent: headache, focal weakness or paresthesias, dizziness, unsteady gait, seizure, mental status changes, bladder or bowel incontinence PSYCHIATRIC: Absent: anxiety, depression, suicidal or homicidal ideation, hallucinations. PHYSICAL EXAMINATION Vital Signs - 24 hr 3 06/16/17 06/16/17 06/16/17 17:40 18:47 21:25 Temperature 97.6 F 98.6 F Pulse Rate 63 Pulse Rate [ 78 Apical] Respiratory 18 24 Rate Blood Pressure 161/67 Blood Pressure 156/74 [Left Arm] O2 Sat by Pulse 97 100 100 Oximetry (%) GENERAL: Awake, alert, and fully oriented, in no acute distress. HEAD: Normal with no signs of trauma. EYES: Pupils equal, round and reactive to light, extraocular movements intact, sclera anicteric, conjunctiva clear. No lid lag. EARS, NOSE, THROAT: Ears normal, nares patent, oropharynx clear without exudates. Moist mucous membranes. NECK: Normal range of motion, supple without lymphadenopathy, JVD, or masses. LUNGS: Breath sounds equal, + scattered expiratory wheezing, diminished bilat bases. No accessory muscle use. HEART: Irregular rate and rhythm, normal S1 and S2 without rub or gallop. + Murmur 2/6 systolic, loudest 2nd ICS, LSB ABDOMEN: Soft, nontender, not distended, normoactive bowel sounds, no guarding, no rebound, no masses. No hepatomegaly or splenomegaly. MUSCULOSKELETAL: Normal range of motion at all joints. No bony deformities or tenderness. No CVA tenderness. UPPER EXTREMITIES: 2+ pulses, warm, well-perfused. No cyanosis. No clubbing. No peripheral edema. LOWER EXTREMITIES: 2+ pulses, warm, well-perfused. No calf tenderness. No peripheral edema. NEUROLOGICAL: Cranial nerves II-XII intact. Normal speech. Normal gait. PSYCHIATRIC: Cooperative. Good eye contact. Appropriate mood and affect. SKIN: Warm, dry, normal turgor, no rashes or lesions noted, normal capillary refill. Laboratory Results - last 24 hr 3 06/16/17 06/16/17 06/16/17 19:00 19:00 19:00 WBC 6.5 RBC 3.24 L Hgb 9.3 L Hct 28.5 L MCV 88.1 MCH 28.7 MCHC 32.6 RDW 19.4 H D Plt Count 131 L D MPV 8.7 D Neutrophils % 78.2 Lymphocytes % 8.9 Monocytes % 9.2 Eosinophils % 3.3 D Basophils % 0.4 PT with INR 26.70 H INR 2.36 H Sodium 139 Potassium 4.1 Chloride 105 Carbon Dioxide 27 Anion Gap 7 L BUN 35 H Creatinine 1.4 H Creat Clearance w eGFR 48.05 Random Glucose 97 Calcium 8.1 L Total Bilirubin 0.7 AST 23 D ALT 27 Alkaline Phosphatase 86 Creatine Kinase 103 Troponin I 0.02 B-Natriuretic Peptide 5104.61 H Total Protein 7.0 Albumin 3.4 Radiology Reports: CXR 1. JAYESH consolidation c/w PNA in the apppropriate setting, f/u CXR after completion of therapy 2. subsegmental atelectasis versus consildation in the right lung base 3. Stable enlargement of the cardiomediastinal silhouette. Mild pulmonary vascular congestion. No evidence of pleural effusion ECG 06/16/17 18:36 Afib with PVC vent rate 64, QTC 478 TWI noted lead 3, aVF, flattended lead 2, V4-V6 06/16/17 21:06 Afib with PVC vent rate 74, QTC 448 new TWI lead 2, flattened lead 3, aVF new TWI lead 1, aVL ST depression lead V2, V3, ?v4-poor baseline ASSESSMENT/PLAN: 86yM with PMH COPD (3L O2 via NC at home), CHF, Afib, HTN, HLD, TIA, CAD, [place], anemia, DVT, CABG, aortic valve replacement, severe PAD, AAA, CKD, BPH, HCV presented to the ED with c/o increased SOB x few days associated with pleuritic CP and cough. Chest pain - given second dose of NTG with reduction of pain to 3/10 - ECG with changes - ED MD d/w karen - trend troponin, next due at 1am CHF exacerbation - change po lasix to IV - echo if none in reporting manager office - cardiology consult appreciated Pneumonia, Community acquired with COPD exac - azithromycin and ceftriaxone ordered. (all to PCN but has tolerated cephalosporins in past) - Oxygen NC titrate to ox sat 90-94, currently requiring 5L, ox sat was 88 on 3L, 100% with neb going - duoneb QID standing and albuterol q4h prn - solumedrol 40mg Q6h, taper as tolerated - ABG to r/o retaining CO2 - pulmonary consult Afib - rate controlled, cont home atenolol - cont home warfarin, INR therapeutic HTN - cont home atenolol, norvasc and losartan HLD - cont home lipitor BPH - cont home terazosin DVT ppx - cont home warfarin FEN - hold IVF, pt appears volume overloaded - BMP in am - low sodium diet as tolerated in am Dispo: Pt currently requires inpatient management of his emergent symptoms. Visit type - Emergency Visit Emergency Visit: Yes ED Registration Date: 06/16/17 Care time: The patient presented to the Emergency Department on the above date and was hospitalized for further evaluation of their emergent condition. - New Patient This patient is new to me today: Yes Date on this admission: 06/16/17 - Critical Care Critical Care patient: No
[2017-06-16 21:53] LABS: ARTERIAL BLD GAS O2 SATURATION 98.5 % (90-98.9); ARTERIAL BLOOD GAS PCO2 43.1 mmHg (35-45); ARTERIAL BLOOD GAS pH 7.38 (7.35-7.45)
[2017-06-16 22:02] LABS: ALLENS TEST POSITIVE
[2017-06-16] MEDS ORDERED: AZITHROMYCIN IVPB 250 ML IVPB ONE (22:27)
[2017-06-16] MEDS ORDERED: POTASSIUM CHLORIDE TABS 20 MEQ TABLET.ER (FP) PO ONE (22:38)
[2017-06-16] MEDS ORDERED: WARFARIN NA 1 MG TABLET (FP) ONE (22:38)
[2017-06-16] MEDS ORDERED: DOCUSATE SODIUM 100 MG CAPSULE (FP) PO ONE (22:39)
[2017-06-16] MEDS: WARFARIN NA 2 MG TABLET (UD) PO SCH (22:42)
[2017-06-16] MEDS: DOCUSATE SODIUM 100 MG CAPSULE (FP) PO SCH (22:42)
[2017-06-16] MEDS: ATORVASTATIN CA 20 MG TABLET (FP) PO SCH (22:43)
[2017-06-16] MEDS: BUDESONIDE/FORMETEROL FUMARATE 160/4.5 mcg INHALER IH SCH (22:43)
[2017-06-16] MEDS: ATENOLOL 25 MG TABLET (FP) PO SCH (22:43)
[2017-06-16] MEDS: POTASSIUM CHLORIDE TABS 20 MEQ TABLET.ER (FP) PO SCH (22:43)
[2017-06-16] MEDS ORDERED: ALBUTEROL SO4 0.083% IH SOL 2.5 MG/3 ML VIAL.NEB. NEB PRN (23:16)
[2017-06-16 23:37] LABS: URINE APPEARANCE CLEAR; URINE BILIRUBIN NEGATIVE (NEGATIVE); URINE BLOOD NEGATIVE (NEGATIVE); URINE COLOR STRAW; URINE GLUCOSE (UA) NEGATIVE (NEGATIVE); URINE KETONE NEGATIVE (NEGATIVE); URINE LEUK ESTERASE NEGATIVE (NEGATIVE); URINE NITRITE NEGATIVE (NEGATIVE); URINE PROTEIN NEGATIVE (NEGATIVE); URINE UROBILINOGEN NEGATIVE mg/dL (0.2-1.0)
[2017-06-17] MEDS: ALBUTEROL SO4 2.5/IPRATROPIUM 0.5 INH SOL 3 ML VIAL.NEB. NEB SCH ×3 (00:05→20:25)
[2017-06-17] MEDS ORDERED: ALBUTEROL SO4 2.5/IPRATROPIUM 0.5 INH SOL 3 ML VIAL.NEB. NEB ONE (03:28)
[2017-06-17] MEDS ORDERED: methylPREDNISolone NA SUCC 40 MG/1 ML VIAL ONE (03:28)
[2017-06-17] MEDS: methylPREDNISolone NA SUCC 40 MG/1 ML VIAL IVPUSH SCH ×4 (03:32→21:11)
[2017-06-17] MEDS ORDERED: HEPARIN NA (PORCINE) 5,000 UNITS/ML 1ML VIAL SQ SCH (06:00)
[2017-06-17] MEDS: DOCUSATE SODIUM 100 MG CAPSULE (FP) PO SCH ×3 (06:01→21:56)
[2017-06-17 07:51] LABS: BASO % 0.2 % (0-2.0); EOS % 0.2 % (0-4.5); HEMATOCRIT 28.1 % (35.4-49); LYMPH % 4.6 % (8-40); MCHC 31.9 g/dl (32.0-35.9); MEAN CELL VOLUME 87.8 fl (80-96); MEAN PLT VOLUME 8.5 fl (7.5-11.1); MONO % 2.2 % (3.8-10.2); NEUT % 92.8 % (42.8-82.8); PLATELET COUNT 120 K/MM3 (134-434); RDW 18.9 % (11.9-15.9); WHITE BLOOD COUNT 4.2 K/mm3 (4.0-10.0)
--- NOTE | 2017-06-17 08:07 | EKG ---
Test Reason : Blood Pressure : / mmHG Vent. Rate : 074 BPM Atrial Rate : 064 BPM P-R Int : 000 ms QRS Dur : 092 ms QT Int : 404 ms P-R-T Axes : 000 -09 230 degrees QTc Int : 448 ms ATRIAL FIBRILLATION WITH PREMATURE VENTRICULAR OR ABERRANTLY CONDUCTED COMPLEXES ABNORMAL ECG WHEN COMPARED WITH ECG OF 12-JUL-2016 13:43, T WAVE INVERSION NOW EVIDENT IN INFERIOR LEADS T WAVE INVERSION NOW EVIDENT IN ANTERIOR LEADS Confirmed by DILMA FOREMAN, AUSTYN ([id number]) on 06/17/2017 8:07:32 AM Referred By: Confirmed By:AUSTYN PERERA MD
--- NOTE | 2017-06-17 08:09 | EKG ---
Test Reason : Blood Pressure : / mmHG Vent. Rate : 064 BPM Atrial Rate : 326 BPM P-R Int : 000 ms QRS Dur : 084 ms QT Int : 464 ms P-R-T Axes : 000 -27 -28 degrees QTc Int : 478 ms ATRIAL FIBRILLATION WITH PREMATURE VENTRICULAR OR ABERRANTLY CONDUCTED COMPLEXES ANTERIOR INFARCT , AGE UNDETERMINED ABNORMAL ECG WHEN COMPARED WITH ECG OF 12-JUL-2016 13:43, ANTERIOR INFARCT IS NOW PRESENT NONSPECIFIC T WAVE ABNORMALITY NOW EVIDENT IN INFERIOR LEADS Confirmed by DILMA FOREMAN, AUSTYN ([id number]) on 06/17/2017 8:09:25 AM Referred By: Confirmed By:AUSTYN PERERA MD
[2017-06-17 08:20] LABS: CHLORIDE 102 mmol/L (98-107); POTASSIUM 4.2 mmol/L (3.5-5.1); SODIUM 138 mmol/L (136-145)
[2017-06-17 08:32] LABS: ANION GAP 13 (8-16); BLOOD UREA NITROGEN 37 mg/dL (7-18); CALCIUM 8.6 mg/dL (8.5-10.1); CO2 23 mmol/L (21-32); CREATININE 1.7 mg/dL (0.7-1.3); GLUCOSE,RANDOM 138 mg/dL (74-106); MAGNESIUM 2.7 mg/dL (1.8-2.4); PHOSPHOROUS 2.9 mg/dL (2.5-4.9)
--- NOTE | 2017-06-17 09:56 | PN ---
Progress Note, Physician History of Present Illness: This is an 86 year old male with a significant past medical history of COPD ( 3LO2NC), CAD, CABG who presented to the ED with a few day history of increased shortness of breath. He also reports weight gain and decreased urine output. He denies eating or drinking salty food. He also reports a dry cough and chest pain with inspiration. He denies fever or chills. Pt developed episode of increased persistent CP just prior to my arrival. Pain 10/10, given NTG with reduction to 5/10, ECG repeated with new ST depressions. ER course was notable for: (1) trop neg x1 (2) BNP elevated (3) CXR with JAYESH PNA Recent Travel: pt denies PAST MEDICAL HISTORY: COPD (3L O2 via NC at home), CHF, Afib, HTN, HLD, TIA, CAD, [place], anemia, DVT, CABG, valve replacement, severe PAD, AAA, CKD, BPH, HCV PAST SURGICAL HISTORY: 3vCABG 1983 bioprosthetic aortic valve 1983, 1997 R carotid endarterectomy B/L LE stenting and bypass Social History: Smoking: quit 45 years ago, 25 pack year history Alcohol: pt denies Drugs: pt denies - Current Medication List Current Medications: Active Medications Albuterol Sulfate (Ventolin 0.083% Nebulizer Soln -) 1 amp NEB Q4H PRN PRN Reason: SHORT OF BREATH/WHEEZING Albuterol/Ipratropium (Duoneb -) 1 amp NEB QIDR [facility] Last Admin: 06/17/17 06:01 Dose: 1 amp Amlodipine Besylate (Norvasc -) 5 mg PO DAILY [facility] Ascorbic Acid (Vitamin C -) 500 mg PO DAILY [facility] Atenolol (Tenormin -) 25 mg PO BID [facility] Last Admin: 06/16/17 22:43 Dose: 25 mg Atorvastatin Calcium (Lipitor -) 20 mg PO HS [facility] Last Admin: 06/16/17 22:43 Dose: 20 mg Budesonide/Formoterol Fumarate (Symbicort 160/4.5mcg -) 2 puff IH BID [facility] Last Admin: 06/16/17 22:43 Dose: 2 puff Cholecalciferol (Vitamin D3 -) 2,000 unit PO DAILY [facility] Cyanocobalamin (Vitamin B12 -) 100 mcg PO DAILY [facility] Docusate Sodium (Colace -) 100 mg PO TID [facility] Last Admin: 06/17/17 06:01 Dose: 100 mg Furosemide (Lasix Injection -) 40 mg IVPUSH BID [facility] Losartan Potassium (Cozaar -) 50 mg PO DAILY [facility] Methylprednisolone Sodium Succinate (Solu-Medrol -) 40 mg IVPUSH Q6H-IV [facility] Last Admin: 06/17/17 03:32 Dose: 40 mg Potassium Chloride (K-Dur -) 20 meq PO BID [facility] Last Admin: 06/16/17 22:43 Dose: 20 meq Terazosin HCl (Hytrin -) 2 mg PO DAILY [facility] Warfarin Sodium (Coumadin -) 2 mg PO DAILY@1800 [facility] Last Admin: 06/16/17 22:42 Dose: 2 mg - Objective Vital Signs: Vital Signs Temperature 98.7 F 06/17/17 06:02 Pulse Rate 85 06/17/17 06:02 Respiratory Rate 15 06/17/17 06:02 Blood Pressure 155/79 06/17/17 06:02 O2 Sat by Pulse Oximetry (%) 97 06/17/17 06:02 Cardiovascular: Yes: S1, S2 Respiratory: Yes: Rales, Rhonchi Gastrointestinal: Yes: Normal Bowel Sounds, Soft Edema: Yes Labs: CBC, BMP 06/17/17 06:20 INR, PTT INR 2.36 (0.82-1.09) H 06/16/17 19:00 Problem List - Problems (1) Pneumonia Assessment/Plan: - -azithromycin and ceftriaxone given. (id consult) - Oxygen NC titrate to ox sat 90-94, currently requiring 5L, ox sat was 88 on 3L, 100% with neb going - duoneb QID standing and albuterol q4h prn - solumedrol 40mg Q6h, taper as tolerated - ABG to r/o retaining CO2 - pulmonary consult Code(s): J18.9 - PNEUMONIA, UNSPECIFIED ORGANISM (2) Chest pain Assessment/Plan: -responded to ntg -ce -follow ekg -cardio Code(s): R07.9 - CHEST PAIN, UNSPECIFIED Qualifiers: Chest pain type: other chest pain Qualified Code(s): R07.89 - Other chest pain (3) Acute on chronic diastolic (congestive) heart failure Assessment/Plan: -iv lasix -follow labs and cxr Code(s): I50.33 - ACUTE ON CHRONIC DIASTOLIC (CONGESTIVE) HEART FAILURE (4) Congestive heart failure Code(s): I50.9 - HEART FAILURE, UNSPECIFIED Qualifiers: Congestive heart failure type: unspecified Congestive heart failure chronicity: acute Qualified Code(s): I50.9 - Heart failure, unspecified (5) Atrial fibrillation Assessment/Plan: -on coumadin -tle -follow inr Code(s): I48.91 - UNSPECIFIED ATRIAL FIBRILLATION Qualifiers: Atrial fibrillation type: chronic Qualified Code(s): I48.2 - Chronic atrial fibrillation
[2017-06-17] MEDS: LOSARTAN POTASSIUM 50 MG TABLET (FP) PO SCH (09:59)
[2017-06-17] MEDS: CYANOCOBALAMIN (VITAMIN B-12) 100 MCG TABLET PO SCH (09:59)
[2017-06-17] MEDS: amLODIPine BESYLATE 5 MG TABLET (FP) PO SCH (10:00)
[2017-06-17] MEDS ORDERED: ASCORBIC ACID 250 MG TABLET (FP) PO SCH (10:00)
[2017-06-17] MEDS: POTASSIUM CHLORIDE TABS 20 MEQ TABLET.ER (FP) PO SCH ×2 (10:00→21:55)
[2017-06-17] MEDS: CHOLECALCIFEROL (VITAMIN D3) 1,000 UNIT TABLET (FP) PO SCH (10:00)
[2017-06-17] MEDS ORDERED: TERAZOSIN HCL 2 MG CAPSULE PO SCH (10:00)
[2017-06-17] MEDS: ATENOLOL 25 MG TABLET (FP) PO SCH ×2 (10:01→22:42)
[2017-06-17] MEDS: FUROSEMIDE 40 MG/4 ML INJECTABLE VIAL IVPUSH SCH ×2 (10:02→21:56)
[2017-06-17] MEDS ORDERED: CEFTRIAXONE 1 G/50 ML PREMIX 50 ML IVPB SCH (10:30)
--- NOTE | 2017-06-17 11:49 | EKG ---
Test Reason : Blood Pressure : / mmHG Vent. Rate : 063 BPM Atrial Rate : 234 BPM P-R Int : 000 ms QRS Dur : 090 ms QT Int : 464 ms P-R-T Axes : 000 -14 -55 degrees QTc Int : 474 ms ATRIAL FIBRILLATION ANTERIOR INFARCT , AGE UNDETERMINED ABNORMAL ECG WHEN COMPARED WITH ECG OF 16-JUN-2017 21:06, ANTERIOR INFARCT IS NOW PRESENT ST NO LONGER DEPRESSED IN ANTERIOR LEADS T WAVE INVERSION NO LONGER EVIDENT IN ANTEROLATERAL LEADS Confirmed by DILMA FOREMAN, AUSTYN ([id number]) on 06/17/2017 11:48:46 AM Referred By: IVETTE CERRATO DR Confirmed By:AUSTYN PERERA MD
--- NOTE | 2017-06-17 11:59 | CON.CARD ---
Cardiology Consult (text) - Consultation Consultation Note: - Consultation Consultation Note: CC: sob/cp/cough 86 m hx pafib (on coumadin), cad s/p inferior NM 1997, s/p cabg x3 1983 and 1997 , bio avr (1983 and 1997), hld, htn, tia, s/p right cea, 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 Past few days with these sxs. Coughing alot has started his cp, central, sharp, pleuritic. Noticed decreased uop and wt gain as well past few days. No dizzy, loc, pnd, orthopnea. Sees me for cardio. pmhx/pshx: per hpi social hx: former smoker, no etoh or illicits fam hx: no premature cad ros: per hpi; no nvd, fever, kumar, vision changes, hematuria, dysuria, muscle pains Home Medications Medication Instructions Recorded Albuterol 2.5/Ipratropium 0.5 1 neb NEB Q4H 06/16/17 [Duoneb -] Amlodipine Besylate [Norvasc -] 5 mg PO DAILY 06/16/17 Ascorbic Acid [Vitamin C] 500 mg PO DAILY 06/16/17 Atenolol [Tenormin -] 25 mg PO BID 06/16/17 Atorvastatin Ca [Lipitor] 20 mg PO HS 06/16/17 Bifidobacterium Infantis [Align] 10.5 mg PO DAILY 06/16/17 Budesonide/Formeterol Fumarate 1 inh PO BID 06/16/17 [SYMBICORT 160/4.5mcg -] Cholecalciferol (Vitamin D3) 2,000 unit PO DAILY 06/16/17 [Vitamin D] Cyanocobalamin [Vitamin B12 -] 100 mcg PO DAILY 06/16/17 Docusate Sodium [Colace] 100 mg PO TID 06/16/17 Furosemide [Lasix] 40 mg PO BID 06/16/17 Ipratropium [place] [Atrovent Hfa] 17 mcg IH DAILY 06/16/17 Losartan Potassium 50 mg PO DAILY 06/16/17 Potassium Chloride 20 meq PO BID 06/16/17 Terazosin HCl 2 mg PO DAILY 01/30/18 Warfarin Sodium [Coumadin] 2 mg PO DAILY 06/16/17 Vital Signs Period Temp Pulse Resp BP Sys/Hernandez Pulse Ox Last 24 Hr 97.6 F-98.7 F 62-85 15-24 142-161/67-91 92-100 nad, calm jvd elevated, neck supple scattered rhonchi/wheezes, nl eff irregular 2/6 soft sys murmur at usb + bs soft nt nd ext with trace edema, no cyanosis, clubbing aaox3 no jaundice, diaphoresis pos dp pt no carotid bruits Laboratory Last Values WBC 4.2 K/mm3 (4.0-10.0) D 06/17/17 06:20 RBC 3.20 M/mm3 (4.00-5.60) L 06/17/17 06:20 Hgb 9.0 GM/dL (11.7-16.9) L 06/17/17 06:20 Hct 28.1 % (35.4-49) L 06/17/17 06:20 MCV 87.8 fl (80-96) 06/17/17 06:20 MCH 28.0 pg (25.7-33.7) 06/17/17 06:20 MCHC 31.9 g/dl (32.0-35.9) L 06/17/17 06:20 RDW 18.9 % (11.9-15.9) H 06/17/17 06:20 Plt Count 120 K/MM3 (134-434) L 06/17/17 06:20 MPV 8.5 fl (7.5-11.1) 06/17/17 06:20 Neutrophils % 92.8 % (42.8-82.8) H 06/17/17 06:20 Lymphocytes % 4.6 % (8-40) L D 06/17/17 06:20 Monocytes % 2.2 % (3.8-10.2) L 06/17/17 06:20 Eosinophils % 0.2 % (0-4.5) D 06/17/17 06:20 Basophils % 0.2 % (0-2.0) 06/17/17 06:20 PT with INR 26.70 SEC (9.98-11.88) H 06/16/17 19:00 INR 2.36 (0.82-1.09) H 06/16/17 19:00 Anticoagulation Therapy No Result Required. 06/16/17 21:40 Puncture Site Right radial 06/16/17 21:40 ABG pH 7.38 (7.35-7.45) 06/16/17 21:40 ABG pCO2 at Pt Temp 43.1 mmHg (35-45) 06/16/17 21:40 ABG pO2 at Pt Temp 119.0 mmHg (68-100) H D 06/16/17 21:40 ABG HCO3 24.7 meq/L (22-26) 06/16/17 21:40 ABG O2 Sat (Measured) 98.5 % (90-98.9) 06/16/17 21:40 ABG O2 Content 13.2 % vol (15-22) L 06/16/17 21:40 ABG Base Excess 0.0 meq/l (-2-2) 06/16/17 21:40 Gulshan Test Positive 06/16/17 21:40 O2 Delivery Device Aorosol rx 06/16/17 21:40 Oxygen Flow Rate 8lpm 06/16/17 21:40 Vent Mode No Result Required. 06/16/17 21:40 Vent Rate No Result Required. 06/16/17 21:40 Mechanical Rate No Result Required. 06/16/17 21:40 Pressure Support Vent No Result Required. 06/16/17 21:40 Sodium 138 mmol/L (136-145) 06/17/17 06:20 Potassium 4.2 mmol/L (3.5-5.1) 06/17/17 06:20 Chloride 102 mmol/L (98-107) 06/17/17 06:20 Carbon Dioxide 23 mmol/L (21-32) 06/17/17 06:20 Anion Gap 13 (8-16) 06/17/17 06:20 BUN 37 mg/dL (7-18) H 06/17/17 06:20 Creatinine 1.7 mg/dL (0.7-1.3) H D 06/17/17 06:20 Creat Clearance w eGFR 48.05 (>60) 06/16/17 19:00 Random Glucose 138 mg/dL (74-106) H D 06/17/17 06:20 Calcium 8.6 mg/dL (8.5-10.1) 06/17/17 06:20 Phosphorus 2.9 mg/dL (2.5-4.9) D 06/17/17 06:20 Magnesium 2.7 mg/dL (1.8-2.4) H D 06/17/17 06:20 Total Bilirubin 0.7 mg/dL (0.2-1.0) 06/16/17 19:00 AST 23 U/L (15-37) D 06/16/17 19:00 ALT 27 U/L (12-78) 06/16/17 19:00 Alkaline Phosphatase 86 U/L (45-117) 06/16/17 19:00 Creatine Kinase 98 IU/L (39-308) 06/17/17 06:20 Troponin I 0.23 ng/ml (0.00-0.05) H D 06/17/17 06:20 B-Natriuretic Peptide 5104.61 pg/ml (5-450) H 06/16/17 19:00 Total Protein 7.0 g/dl (6.4-8.2) 06/16/17 19:00 Albumin 3.4 g/dl (3.4-5.0) 06/16/17 19:00 Urine Color Straw 06/16/17 23:06 Urine Appearance Clear 06/16/17 23:06 Urine pH 5.0 (5.0-8.0) 06/16/17 23:06 Ur Specific Amity 1.010 (1.001-1.035) 06/16/17 23:06 Urine Protein Negative (NEGATIVE) 06/16/17 23:06 Urine Glucose (UA) Negative (NEGATIVE) 06/16/17 23:06 Urine Ketones Negative (NEGATIVE) 06/16/17 23:06 Urine Blood Negative (NEGATIVE) 06/16/17 23:06 Urine Nitrite Negative (NEGATIVE) 06/16/17 23:06 Urine Bilirubin Negative (NEGATIVE) 06/16/17 23:06 Urine Urobilinogen Negative mg/dL (0.2-1.0) 06/16/17 23:06 Ur Leukocyte Esterase Negative (NEGATIVE) 06/16/17 23:06 EKG: afib,rate controlled, nl qtc, no ischemic changes cxr: pna echo 09/2015: nl lv/rv, mild lae, nl bio avr, mild tr, mild-mod phtn carotids 12/2015: jess >70% (same location as prior stenosis seen 09/2014), no sig stenosis on left cta 2006: patent knowles/shaggy, occluded svg to OM Mibi 2011 showed only possible minimal inferolateral ischemia abd us 01/2016: 4.8 cm AAA a/p: 86 m hx pafib (on coumadin), cad s/p inferior NM 1997, s/p cabg x3 1983 and 1997, bio avr (1983 and 1997), hld, htn, tia, s/p right cea, 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 sob, cp, cough: -no signs acs, cp is likely msk from coughing, ce's neg, ecg w/o ischemic changes -likely combo of pna/chf -cont abx, iv lasix -repeat echo acute diastolic chf: -possibly triggered by pna -cont iv lasix -monitor daily lytes, cr, wt Pafib (on coumadin): - Rate controlled on BB. - AC with coumadin. Dosing per inr. cad s/p inferior NM 1997, s/p cabg x3 1983 and 1997: -stable, no angina, nl lvef -cont medical management s/p bio avr - nl function on 06/2016 echo - would repeat echo given new HF sx's. hld: -cont statin htn: - cont home meds. was also on hydralazine, may need to add back if bp remains elevated pad, s/p cea, s/p le bypass/stenting: - Claudication is stable. Pt has been evaluated by several vascular surgeons in the past and his le dz is deemed non revascularizable. Recent carotid US shows stable disease, no new sxs. Continue current cardiac meds. AAA: - Has been stable on serial non con chest/abd ct's over the past years. Has seen vascular in past and they felt he is not a surgical candidate due to high risk. - Continue bb, statin.
[2017-06-17] MEDS ORDERED: cefTRIAXone 1 GM/50 ML BAG (PRE-DOCKED) IVPB ONE (13:57)
--- NOTE | 2017-06-17 14:05 | CON.ID ---
Consult Consult Specialty:: infectious disease Referred by:: dr montero Reason for Consultation:: pneumonia - History of Present Illness Chief Complaint: 3 to 4 day history of cough and sob- patient seen in ED History of Present Illness: 86 year old man with COPD (home oxygen), CAD- bioAVR, obesity, PAD dry cough for 3 to 4 days, no fevers no vomiting no diarrhea lower extremity edema, weight gain, decreased urine output yesterday started coughing and developed chest pain no travel no sick contacts uses oxygen 3 liters at home cxray in ED with JAYESH infiltrate and right basilar infiltrate started on rocephin and zithromax started on steroids and iv lasix - History Source History Provided By: Patient, Medical Record Limitations to Obtaining History: No Limitations - Past Medical History IS SUPPORT ANALYST: Yes: TIA Cardio/Vascular: Yes: AFIB, CAD, Deep Vein Thrombosis, HTN, Hyperlipdemia, Other (AAA, PAD) Pulmonary: Yes: COPD, O2 Dependent Renal/: Yes: Renal Inusuff, BPH Infectious Disease: Yes: Other (history of pseudomonas osteomyelitis right foot 2012) - Past Surgical History Past Surgical History: Yes: CABG, Carotid Endarterectomy (right), Valve Replacement (bioAVR 1983, 1997) Additional Surgical History: bilateral lower extremity stent and bypass - Alcohol/Substance Use Hx Alcohol Use: No - Smoking History Smoking history: Former smoker Have you smoked in the past 12 months: No Aproximately how many cigarettes per day: 0 If you are a former smoker, when did you quit?: 45 years ago - Social History Usual Living Arrangement: With Spouse ADL: Independent Place of : [facility] History of Recent Travel: No Home Medications - Allergies Allergies/Adverse Reactions: Allergies Allergy/AdvReac Type Severity Reaction Status Date / Time black pepper Allergy Verified 06/16/17 17:56 Penicillins Allergy Rash Verified 06/16/17 17:56 RED PEPPER Allergy Uncoded 06/16/17 17:56 - Home Medications Home Medications: Ambulatory Orders Albuterol 2.5/Ipratropium 0.5 [Duoneb -] 1 neb NEB Q4H 06/16/17 Amlodipine Besylate [Norvasc -] 5 mg PO DAILY 06/16/17 Ascorbic Acid [Vitamin C] 500 mg PO DAILY 06/16/17 Atenolol [Tenormin -] 25 mg PO BID 06/16/17 Atorvastatin Ca [Lipitor] 20 mg PO HS 06/16/17 Bifidobacterium Infantis [Align] 10.5 mg PO DAILY 06/16/17 Budesonide/Formeterol Fumarate [SYMBICORT 160/4.5mcg -] 1 inh PO BID 06/16/17 Cholecalciferol (Vitamin D3) [Vitamin D] 2,000 unit PO DAILY 06/16/17 Cyanocobalamin [Vitamin B12 -] 100 mcg PO DAILY 06/16/17 Docusate Sodium [Colace] 100 mg PO TID 06/16/17 Furosemide [Lasix] 40 mg PO BID 06/16/17 Ipratropium [place] [Atrovent Hfa] 17 mcg IH DAILY 06/16/17 Losartan Potassium 50 mg PO DAILY 06/16/17 Potassium Chloride 20 meq PO BID 06/16/17 Terazosin HCl 2 mg PO DAILY 06/16/17 Warfarin Sodium [Coumadin] 2 mg PO DAILY 06/16/17 Family Disease History - Family Disease History Family History: Unremarkable Review of Systems - Review of Systems Constitutional: reports: No Symptoms. denies: Chills, Fever, Loss of Appetite, Night Sweats Eyes: reports: No Symptoms HENT: reports: No Symptoms, Other (dry mouth, no recent dental work, upper dentures) Neck: reports: No Symptoms Cardiovascular: reports: Chest Pain, Edema, Shortness of Breath Respiratory: reports: Cough (dry, non productive) Gastrointestinal: reports: No Symptoms. denies: Diarrhea, Nausea, Rectal Bleeding, Vomiting Genitourinary: reports: No Symptoms. denies: Burning, Discharge, Dysuria, Flank Pain Musculoskeletal: reports: No Symptoms Physical Exam Vital Signs: Vital Signs Temperature 98 F 06/17/17 09:53 Pulse Rate 64 06/17/17 09:53 Respiratory Rate 20 06/17/17 09:53 Blood Pressure 155/85 06/17/17 09:53 O2 Sat by Pulse Oximetry (%) 94 L 06/17/17 09:00 Constitutional: Yes: Well Nourished, Mild Distress Eyes: Yes: Conjunctiva Clear, EOM Intact HENT: Yes: Atraumatic, Normocephalic, Other (upper dentures). No: Nasal Congestion, Pharyngeal Erythema, Thrush, Tonsillar Exudate Neck: Yes: Supple, Trachea Midline Cardiovascular: Yes: Pulse Irregular Respiratory: Yes: Regular, Diminished, Other (crackles at both bases) Gastrointestinal: Yes: Normal Bowel Sounds, Soft, Abdomen, Obese. No: Tenderness ...Rectal Exam: Yes: Deferred Edema: Yes Edema: LLE: 1+, RLE: 1+ Integumentary: No: Rash Neurological: Yes: Alert, Oriented Labs: CBC, BMP 06/17/17 06:20 06/17/17 06:20 cultures ordered influenza antigen negative Imaging - Results Chest X-ray: Report Reviewed, Image Reviewed (JAYESH infiltrate, right base infiltrate) Problem List - Problems (1) Pneumonia Code(s): J18.9 - PNEUMONIA, UNSPECIFIED ORGANISM (2) Acute on chronic diastolic (congestive) heart failure Code(s): I50.33 - ACUTE ON CHRONIC DIASTOLIC (CONGESTIVE) HEART FAILURE (3) COPD (chronic obstructive pulmonary disease) Code(s): J44.9 - CHRONIC OBSTRUCTIVE PULMONARY DISEASE, UNSPECIFIED (4) History of aortic valve replacement with bioprosthetic valve Code(s): Z98.890 - OTHER SPECIFIED POSTPROCEDURAL STATES; Z95.3 - PRESENCE OF XENOGENIC HEART VALVE Assessment/Plan agree with plans for chest ct- ordered would treat for CAP- cultures have been ordered, legionella urinary antigen ordered agree with rocephin/zithromax (dr karen schrader with zithromax) agree with diuresis agree with copd management
[2017-06-17] MEDS ORDERED: AZITHROMYCIN IVPB 250 ML IVPB ONE ×2 (14:49→14:50)
--- NOTE | 2017-06-17 16:47 | PN ---
Progress Note (short form) - Note Progress Note: PULMONARY CONSULTATION DICTATED06/17/17 IMP ACUTE ON CHRONIC HYPOXEMIC RESPIRATORY FAILURE PNEUMONIA ACUTE ON CHRONIC CHF ADVANCED COPD ON O2 PULMONARY HTN AFIB DM S/P AVR HTN H/O DVT PLAN IV ANTIBIOTICS S PER ID INHALED BRONCHODILATORS LASIX STEROIDS O2 DAILY WTS F/U CHEST X-RAYS DR SINGH Problem List - Problems (1) Acute on chronic respiratory failure with hypoxemia Code(s): J96.21 - ACUTE AND CHRONIC RESPIRATORY FAILURE WITH HYPOXIA (2) COPD (chronic obstructive pulmonary disease) Code(s): J44.9 - CHRONIC OBSTRUCTIVE PULMONARY DISEASE, UNSPECIFIED (3) History of aortic valve replacement with bioprosthetic valve Code(s): Z98.890 - OTHER SPECIFIED POSTPROCEDURAL STATES; Z95.3 - PRESENCE OF XENOGENIC HEART VALVE (4) Acute on chronic diastolic (congestive) heart failure Code(s): I50.33 - ACUTE ON CHRONIC DIASTOLIC (CONGESTIVE) HEART FAILURE (5) CAD (coronary artery disease) Code(s): I25.10 - ATHSCL HEART DISEASE OF [place] CORONARY ARTERY W/O ANG PCTRS (6) Chest pain Code(s): R07.9 - CHEST PAIN, UNSPECIFIED Qualifiers: Chest pain type: other chest pain Qualified Code(s): R07.89 - Other chest pain (7) Pneumonia Code(s): J18.9 - PNEUMONIA, UNSPECIFIED ORGANISM (8) Atrial fibrillation Code(s): I48.91 - UNSPECIFIED ATRIAL FIBRILLATION Qualifiers: Atrial fibrillation type: chronic Qualified Code(s): I48.2 - Chronic atrial fibrillation
[2017-06-17] MEDS ORDERED: AZITHROMYCIN IVPB 500 MG in DEXTROSE 5%-WATER - 250 ML IVPB SCH (17:00)
[2017-06-17] MEDS: BUDESONIDE/FORMETEROL FUMARATE 160/4.5 mcg INHALER IH SCH ×2 (17:22→22:41)
[2017-06-17] MEDS: WARFARIN NA 2 MG TABLET (UD) PO SCH (18:52)
--- NOTE | 2017-06-17 19:32 | CONS ---
DATE OF CONSULTATION: 06/17/2017 REFERRING PHYSICIAN: Linh Mobley MD The patient is an 86-year-old white male, known to me from previous hospitalization as well as office followup in the past, with advanced COPD, on home O2 3 L daily , osteoarthritis, ASHD, status post CABG, status post bio aortic valve replaced in 1983, DVT, CHF, hypertension, TIA, anemia, zko-gtfftkk-xwttxgksy diabetes mellitus, admitted to [facility] with a complaint of 2-day history of increasing shortness of breath, dry cough. Patient denied any chest pain. Also complained of some chest tightness. Patient also complains of mild diarrhea. No nausea, no vomiting. Denied any hemoptysis. Denied any fevers or chills. Patient presented to the emergency room with above. In the ER, he had a chest x-ray performed, which revealed likely left upper lobe pneumonia. He was started on broad-spectrum antibiotics as well as bronchodilator therapy. Patient denies any recent travel. 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 He denies any asbestos exposure. Past medical history, again, includes hypertension, hyperlipidemia, ASHD, status post CABG, status post bio aortic valve replacement, and COPD, on home O2 3 L, hypertension, hyperlipidemia, DVT, CHF, and TIA. REVIEW OF SYSTEMS: Positive dyspnea, positive orthopnea, positive cough. No chest pain, no palpitations. Mild chest pressure, positive wheezing. No fever, no chills. No abdominal pain. Positive diarrhea. No lower extremity edema. Current medications include Coumadin, Diabetic Tussin, albuterol, DuoNeb, Tenormin, Colace, Norvasc, Lipitor, Lasix, K-Dur, vitamin C, and Vitamin D3. PHYSICAL EXAMINATION: General: The patient is an elderly white male, awake, alert, mildly dyspneic, in no acute distress. Vital Signs: He is currently afebrile. Heart rate is 56. Blood pressure is 115/64. Respiratory rate is 20. O2 saturation is 94% on 3 L. HEENT: Normocephalic, atraumatic. Neck: Supple. Heart: Regular, S1, S2. Chest: Scattered bilateral wheezes. Abdomen: Soft. Bowel sounds positive. Extremities: No cyanosis, edema. LABORATORIES: WBC 4.2, hemoglobin 9, hematocrit 28.1, platelet count 120,000. INR is 2.36. Blood gas: pH 7.38, pCO2 of 43, a pO2 of 119, bicarbonate 27, and saturation 98.5. Chest x-ray: cardiomegaly, increased markings bilaterally, possible left upper lobe opacity. BNP is 5104. Positive troponins. IMPRESSION: 1. Chronic hypoxemic respiratory failure secondary to likely pneumonia, left upper lobe. 2. Advanced chronic obstructive pulmonary disease, on home O2. 3. Acute on chronic congestive heart failure. 4. Hypertension. 5. Arteriosclerotic heart disease, status post coronary artery bypass graft. 6. Status post aortic valve replacement. 7. Diabetes. 8. History of deep vein thrombosis. 9. History of anemia. 10. History of transient ischemic attacks. 11. Positive troponins. PLAN: IV antibiotics as per Infectious Disease. Supplemental O2, inhaled bronchodilators, steroids. Obtain followup chest x-rays. Other recommendations : Continue Lasix, daily weights. Trend troponins. Alex [id number] MTDD
[2017-06-17] MEDS: ATORVASTATIN CA 20 MG TABLET (FP) PO SCH (21:55)
[2017-06-18] MEDS: methylPREDNISolone NA SUCC 40 MG/1 ML VIAL IVPUSH SCH ×4 (02:05→21:40)
[2017-06-18] MEDS: DOCUSATE SODIUM 100 MG CAPSULE (FP) PO SCH ×3 (05:46→21:40)
[2017-06-18 06:20] LABS: HEMATOCRIT 27.4 % (35.4-49); HEMOGLOBIN 8.9 GM/dL (11.7-16.9); LYMPH % 3.8 % (8-40); MCH 28.4 pg (25.7-33.7); MCHC 32.4 g/dl (32.0-35.9); MEAN CELL VOLUME 87.7 fl (80-96); MEAN PLT VOLUME 8.8 fl (7.5-11.1); MONO % 3.4 % (3.8-10.2); NEUT % 92.8 % (42.8-82.8); PLATELET COUNT 148 K/MM3 (134-434); RBC 3.12 M/mm3 (4.00-5.60); RDW 18.8 % (11.9-15.9)
[2017-06-18 06:40] LABS: INR 3.35 (0.82-1.09); PROTHROMBIN TIME (PATIENT) 37.8 SEC (9.98-11.88)
[2017-06-18 06:42] LABS: ALBUMIN 3.3 g/dl (3.4-5.0); ANION GAP 12 (8-16); BILIRUBIN,TOTAL 0.3 mg/dL (0.2-1.0); BLOOD UREA NITROGEN 57 mg/dL (7-18); CALCIUM 8.2 mg/dL (8.5-10.1); CHLORIDE 103 mmol/L (98-107); CO2 26 mmol/L (21-32); CREATININE 1.9 mg/dL (0.7-1.3); GLUCOSE,RANDOM 135 mg/dL (74-106); POTASSIUM 4.4 mmol/L (3.5-5.1); SGOT/AST 22 U/L (15-37); SGPT/ALT 26 U/L (12-78); SODIUM 141 mmol/L (136-145); TOT PROT 7.1 g/dl (6.4-8.2)
[2017-06-18 06:43] LABS: ALK PHOS 76 U/L (45-117)
[2017-06-18] MEDS: ALBUTEROL SO4 2.5/IPRATROPIUM 0.5 INH SOL 3 ML VIAL.NEB. NEB SCH ×4 (08:15→20:06)
--- NOTE | 2017-06-18 08:18 | PN ---
Progress Note, Physician History of Present Illness: This is an 86 year old male with a significant past medical history of COPD ( 3LO2NC), CAD, CABG who presented to the ED with a few day history of increased shortness of breath. He also reports weight gain and decreased urine output. He denies eating or drinking salty food. He also reports a dry cough and chest pain with inspiration. He denies fever or chills. Pt developed episode of increased persistent CP just prior to my arrival. Pain 10/10, given NTG with reduction to 5/10, ECG repeated with new ST depressions. ER course was notable for: (1) trop neg x1 (2) BNP elevated (3) CXR with JAYESH PNA Recent Travel: pt denies PAST MEDICAL HISTORY: COPD (3L O2 via NC at home), CHF, Afib, HTN, HLD, TIA, CAD, NE, anemia, DVT, CABG, valve replacement, severe PAD, AAA, CKD, BPH, HCV PAST SURGICAL HISTORY: 3vCABG 1983 bioprosthetic aortic valve 1983, 1997 R carotid endarterectomy B/L LE stenting and bypass Social History: Smoking: quit 45 years ago, 25 pack year history Alcohol: pt denies Drugs: pt denies feels better-still with a cough - Current Medication List Current Medications: Active Medications Albuterol Sulfate (Ventolin 0.083% Nebulizer Soln -) 1 amp NEB Q4H PRN PRN Reason: SHORT OF BREATH/WHEEZING Last Admin: 06/17/17 18:49 Dose: 1 amp Albuterol/Ipratropium (Duoneb -) 1 amp NEB RQID [facility] Last Admin: 06/17/17 20:25 Dose: 1 amp Amlodipine Besylate (Norvasc -) 5 mg PO DAILY [facility] Last Admin: 06/17/17 10:00 Dose: 5 mg Ascorbic Acid (Vitamin C -) 500 mg PO DAILY [facility] Atenolol (Tenormin -) 25 mg PO BID [facility] Last Admin: 06/17/17 22:42 Dose: 25 mg Atorvastatin Calcium (Lipitor -) 20 mg PO HS [facility] Last Admin: 06/17/17 21:55 Dose: 20 mg Budesonide/Formoterol Fumarate (Symbicort 160/4.5mcg -) 2 puff IH BID [facility] Last Admin: 06/17/17 22:41 Dose: 2 puff Cholecalciferol (Vitamin D3 -) 2,000 unit PO DAILY [facility] Last Admin: 06/17/17 10:00 Dose: 2,000 unit Cyanocobalamin (Vitamin B12 -) 100 mcg PO DAILY [facility] Last Admin: 06/17/17 09:59 Dose: 100 mcg Docusate Sodium (Colace -) 100 mg PO TID [facility] Last Admin: 06/18/17 05:46 Dose: 100 mg Furosemide (Lasix Injection -) 40 mg IVPUSH BID [facility] Last Admin: 06/17/17 21:56 Dose: 40 mg Guaifenesin (Diabetic Tussin Dm -) 10 ml PO Q6H PRN PRN Reason: COUGH Azithromycin 500 mg/ Dextrose 250 mls @ 250 mls/hr IVPB Q24H [facility] Last Admin: 06/17/17 17:24 Dose: 250 mls/hr CEFTRIAXONE IN IS-OSM DEXTROSE (Ceftriaxone 2 Gm-D5w Bag) 2 gm in 50 mls @ 100 mls/hr IVPB DAILY [facility] Losartan Potassium (Cozaar -) 50 mg PO DAILY [facility] Last Admin: 06/17/17 09:59 Dose: 50 mg Methylprednisolone Sodium Succinate (Solu-Medrol -) 40 mg IVPUSH Q6H-IV [facility] Last Admin: 06/18/17 02:05 Dose: 40 mg Potassium Chloride (K-Dur -) 20 meq PO BID [facility] Last Admin: 06/17/17 21:55 Dose: 20 meq Terazosin HCl (Hytrin -) 2 mg PO DAILY [facility] Warfarin Sodium (Coumadin -) 2 mg PO DAILY@1800 [facility] Last Admin: 06/17/17 18:52 Dose: 2 mg - Objective Vital Signs: Vital Signs Temperature 98.2 F 06/18/17 06:00 Pulse Rate 65 06/18/17 06:00 Respiratory Rate 24 06/18/17 06:00 Blood Pressure 151/89 06/18/17 06:00 O2 Sat by Pulse Oximetry (%) 94 L 06/17/17 21:00 Cardiovascular: Yes: S1, S2 Respiratory: Yes: On Nasal O2, Rales, Rhonchi Gastrointestinal: Yes: Normal Bowel Sounds, Soft Labs: CBC, BMP 06/18/17 05:25 06/18/17 05:25 INR, PTT INR 3.35 (0.82-1.09) H D 06/18/17 05:25 Problem List - Problems (1) Pneumonia Assessment/Plan: - -azithromycin and ceftriaxone given. (id consult) - Oxygen NC titrate to ox sat 90-94, currently requiring 5L, ox sat was 88 on 3L, 100% with neb going - duoneb QID standing and albuterol q4h prn - solumedrol 40mg Q6h, taper as tolerated - ABG to r/o retaining CO2 - pulmonary consult -ct noted--will d/w dr verma Code(s): J18.9 - PNEUMONIA, UNSPECIFIED ORGANISM (2) Chest pain Assessment/Plan: -responded to ntg -ce -follow ekg -cardio Code(s): R07.9 - CHEST PAIN, UNSPECIFIED Qualifiers: Chest pain type: other chest pain Qualified Code(s): R07.89 - Other chest pain (3) Acute on chronic diastolic (congestive) heart failure Assessment/Plan: -iv lasix -follow labs and cxr Code(s): I50.33 - ACUTE ON CHRONIC DIASTOLIC (CONGESTIVE) HEART FAILURE (4) Congestive heart failure Code(s): I50.9 - HEART FAILURE, UNSPECIFIED Qualifiers: Congestive heart failure type: unspecified Congestive heart failure chronicity: acute Qualified Code(s): I50.9 - Heart failure, unspecified (5) Atrial fibrillation Assessment/Plan: -on coumadin -tle -follow inr Code(s): I48.91 - UNSPECIFIED ATRIAL FIBRILLATION Qualifiers: Atrial fibrillation type: chronic Qualified Code(s): I48.2 - Chronic atrial fibrillation (6) Aortic aneurysm Assessment/Plan: -cardio consult noted--poor surgical candidate -monitor Code(s): I71.9 - AORTIC ANEURYSM OF UNSPECIFIED SITE, WITHOUT RUPTURE (7) Lung mass Assessment/Plan: will compare to old films Code(s): R91.8 - OTHER NONSPECIFIC ABNORMAL FINDING OF LUNG FIELD
[2017-06-18] MEDS: LOSARTAN POTASSIUM 50 MG TABLET (FP) PO SCH (09:52)
[2017-06-18] MEDS: CHOLECALCIFEROL (VITAMIN D3) 1,000 UNIT TABLET (FP) PO SCH (09:52)
[2017-06-18] MEDS: amLODIPine BESYLATE 5 MG TABLET (FP) PO SCH (09:52)
[2017-06-18] MEDS: FUROSEMIDE 40 MG/4 ML INJECTABLE VIAL IVPUSH SCH ×2 (09:52→21:40)
[2017-06-18] MEDS ORDERED: PT OWN MED DRAWER 7, Y5N ONE ×2 (09:57→21:26)
[2017-06-18] MEDS: POTASSIUM CHLORIDE TABS 20 MEQ TABLET.ER (FP) PO SCH ×2 (09:58→21:40)
[2017-06-18] MEDS: ASCORBIC ACID 500 MG TABLET (FP) PO SCH (09:58)
[2017-06-18] MEDS: TERAZOSIN HCL 1 MG CAPSULE PO SCH (09:59)
[2017-06-18] MEDS ORDERED: cefTRIAXone 2 GM/100 ML BAG (PRE-DOCKED) IVPB SCH (10:00)
[2017-06-18] MEDS ORDERED: CEFTRIAXONE IN IS-OSM DEXTROSE 2 GM/50 ML BAG IVPB SCH (10:00)
[2017-06-18] MEDS: ATENOLOL 25 MG TABLET (FP) PO SCH ×2 (10:01→21:40)
--- NOTE | 2017-06-18 10:28 | PN ---
Progress Note (short form) - Note Progress Note: s: less sob today, no cp palps dizzy o: Vital Signs Period Temp Pulse Resp BP Sys/Hernandez Pulse Ox Last 24 Hr 97.8 F-98.2 F 56-65 20-24 115-154/64-94 94-95 nad, calm jvd elevated, neck supple scattered rhonchi/wheezes, nl eff irregular 2/6 soft sys murmur at usb + bs soft nt nd ext with trace edema, no cyanosis, clubbing aaox3 no jaundice, diaphoresis Current Medications Generic Name Dose Route Start Last Admin Trade Name Freq PRN Reason Stop Dose Admin Albuterol Sulfate 1 amp 06/16/17 23:16 06/17/17 18:49 Ventolin 0.083% Nebulizer Soln - NEB 1 amp Q4H PRN Administration SHORT OF BREATH/WHEEZING Albuterol/Ipratropium 1 amp 06/17/17 20:00 06/18/17 08:15 Duoneb - NEB 1 amp RQID [facility] Administration Amlodipine Besylate 5 mg 06/17/17 10:00 06/18/17 09:52 Norvasc - PO 5 mg DAILY [facility] Administration Ascorbic Acid 500 mg 06/18/17 10:00 06/18/17 09:58 Vitamin C - PO 500 mg DAILY [facility] Administration Atenolol 25 mg 06/16/17 22:00 06/18/17 10:01 Tenormin - PO 25 mg BID ARI Administration Atorvastatin Calcium 20 mg 06/16/17 22:00 06/17/17 21:55 Lipitor - PO 20 mg HS [facility] Administration Budesonide/Formoterol Fumarate 2 puff 06/16/17 22:00 06/17/17 22:41 Symbicort 160/4.5mcg - IH 2 puff BID [facility] Administration Cholecalciferol 2,000 unit 06/17/17 10:00 06/18/17 09:52 Vitamin D3 - PO 2,000 unit DAILY [facility] Administration Cyanocobalamin 100 mcg 06/17/17 10:00 06/17/17 09:59 Vitamin B12 - PO 100 mcg DAILY [facility] Administration Docusate Sodium 100 mg 06/16/17 22:00 06/18/17 05:46 Colace - PO 100 mg TID [facility] Administration Furosemide 40 mg 06/17/17 10:00 06/18/17 09:52 Lasix Injection - IVPUSH 40 mg BID [facility] Administration Guaifenesin 10 ml 06/17/17 10:22 Diabetic Tussin Dm - PO Q6H PRN COUGH Azithromycin 500 mg/ Dextrose 250 mls @ 250 mls/hr 06/17/17 17:00 06/17/17 17 :24 IVPB 250 mls/hr Q24H [facility] Administration CEFTRIAXONE IN IS-OSM DEXTROSE 2 gm in 50 mls @ 100 mls/hr 06/18/17 10:00 06/04 09:59 Ceftriaxone 2 Gm-D5w Bag IVPB 100 mls/hr DAILY [facility] Administration Losartan Potassium 50 mg 06/17/17 10:00 06/18/17 09:52 Cozaar - PO 50 mg DAILY [facility] Administration Methylprednisolone Sodium Succinate 40 mg 06/17/17 03:00 06/18/17 09:52 Solu-Medrol - IVPUSH 40 mg Q6H-IV [facility] Administration Potassium Chloride 20 meq 06/16/17 22:00 06/18/17 09:58 K-Dur - PO 20 meq BID [facility] Administration Terazosin HCl 2 mg 06/18/17 10:00 06/18/17 09:59 Hytrin - PO 2 mg DAILY [facility] Administration Warfarin Sodium 2 mg 06/16/17 22:00 06/17/17 18:52 Coumadin - PO 2 mg DAILY@1800 [facility] Administration Laboratory Last Values WBC 8.0 K/mm3 (4.0-10.0) D 06/18/17 05:25 RBC 3.12 M/mm3 (4.00-5.60) L 06/18/17 05:25 Hgb 8.9 GM/dL (11.7-16.9) L 06/18/17 05:25 Hct 27.4 % (35.4-49) L 06/18/17 05:25 MCV 87.7 fl (80-96) 06/18/17 05:25 MCH 28.4 pg (25.7-33.7) 06/18/17 05:25 MCHC 32.4 g/dl (32.0-35.9) 06/18/17 05:25 RDW 18.8 % (11.9-15.9) H 06/18/17 05:25 Plt Count 148 K/MM3 (134-434) D 06/18/17 05:25 MPV 8.8 fl (7.5-11.1) 06/18/17 05:25 Neutrophils % 92.8 % (42.8-82.8) H 06/18/17 05:25 Lymphocytes % 3.8 % (8-40) L 06/18/17 05:25 Monocytes % 3.4 % (3.8-10.2) L 06/18/17 05:25 Eosinophils % 0.0 % (0-4.5) D 06/18/17 05:25 Basophils % 0.0 % (0-2.0) 06/18/17 05:25 PT with INR 37.80 SEC (9.98-11.88) H 06/18/17 05:25 INR 3.35 (0.82-1.09) H D 06/18/17 05:25 Anticoagulation Therapy No Result Required. 06/16/17 21:40 Puncture Site Right radial 06/16/17 21:40 ABG pH 7.38 (7.35-7.45) 06/16/17 21:40 ABG pCO2 at Pt Temp 43.1 mmHg (35-45) 06/16/17 21:40 ABG pO2 at Pt Temp 119.0 mmHg (68-100) H D 06/16/17 21:40 ABG HCO3 24.7 meq/L (22-26) 06/16/17 21:40 ABG O2 Sat (Measured) 98.5 % (90-98.9) 06/16/17 21:40 ABG O2 Content 13.2 % vol (15-22) L 06/16/17 21:40 ABG Base Excess 0.0 meq/l (-2-2) 06/16/17 21:40 Gulshan Test Positive 06/16/17 21:40 O2 Delivery Device Aorosol rx 06/16/17 21:40 Oxygen Flow Rate 8lpm 06/16/17 21:40 Vent Mode No Result Required. 06/16/17 21:40 Vent Rate No Result Required. 06/16/17 21:40 Mechanical Rate No Result Required. 06/16/17 21:40 Pressure Support Vent No Result Required. 06/16/17 21:40 Sodium 141 mmol/L (136-145) 06/18/17 05:25 Potassium 4.4 mmol/L (3.5-5.1) 06/18/17 05:25 Chloride 103 mmol/L (98-107) 06/18/17 05:25 Carbon Dioxide 26 mmol/L (21-32) 06/18/17 05:25 Anion Gap 12 (8-16) 06/18/17 05:25 BUN 57 mg/dL (7-18) H D 06/18/17 05:25 Creatinine 1.9 mg/dL (0.7-1.3) H 06/18/17 05:25 Creat Clearance w eGFR 33.78 (>60) 06/18/17 05:25 Random Glucose 135 mg/dL (74-106) H 06/18/17 05:25 Calcium 8.2 mg/dL (8.5-10.1) L 06/18/17 05:25 Phosphorus 2.9 mg/dL (2.5-4.9) D 06/17/17 06:20 Magnesium 2.7 mg/dL (1.8-2.4) H D 06/17/17 06:20 Total Bilirubin 0.3 mg/dL (0.2-1.0) D 06/18/17 05:25 AST 22 U/L (15-37) 06/18/17 05:25 ALT 26 U/L (12-78) 06/18/17 05:25 Alkaline Phosphatase 76 U/L (45-117) 06/18/17 05:25 Creatine Kinase 98 IU/L (39-308) 06/17/17 06:20 Troponin I 0.23 ng/ml (0.00-0.05) H D 06/17/17 06:20 B-Natriuretic Peptide 5104.61 pg/ml (5-450) H 06/16/17 19:00 Total Protein 7.1 g/dl (6.4-8.2) 06/18/17 05:25 Albumin 3.3 g/dl (3.4-5.0) L 06/18/17 05:25 Urine Color Straw 06/16/17 23:06 Urine Appearance Clear 06/16/17 23:06 Urine pH 5.0 (5.0-8.0) 06/16/17 23:06 Ur Specific [place] 1.010 (1.001-1.035) 06/16/17 23:06 Urine Protein Negative (NEGATIVE) 06/16/17 23:06 Urine Glucose (UA) Negative (NEGATIVE) 06/16/17 23:06 Urine Ketones Negative (NEGATIVE) 06/16/17 23:06 Urine Blood Negative (NEGATIVE) 06/16/17 23:06 Urine Nitrite Negative (NEGATIVE) 06/16/17 23:06 Urine Bilirubin Negative (NEGATIVE) 06/16/17 23:06 Urine Urobilinogen Negative mg/dL (0.2-1.0) 06/16/17 23:06 Ur Leukocyte Esterase Negative (NEGATIVE) 06/16/17 23:06 EKG: afib,rate controlled, nl qtc, no ischemic changes cxr: pna echo 09/2015: nl lv/rv, mild lae, nl bio avr, mild tr, mild-mod phtn echo 05/2017: mod lve, nl lvef, rv tds, sev ricardo, mild-mod mr, sev tr, sev phtn, no AI/ carotids 12/2015: jess >70% (same location as prior stenosis seen 09/2014), no sig stenosis on left cta 2006: patent knowles/shaggy, occluded svg to OM Mibi 2011 showed only possible minimal inferolateral ischemia abd us 01/2016: 4.8 cm AAA tele: afib, rate ok a/p: 86 m hx pafib (on coumadin), cad s/p inferior HI 1997, s/p cabg x3 1983 and 1997, bio avr (1983 and 1997), hld, htn, tia, s/p right cea, 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 sob, cp, cough: -no signs acs, cp is likely msk from coughing, ce's neg, ecg w/o ischemic changes -likely combo of pna/chf -cont abx, iv lasix acute diastolic chf: -possibly triggered by pna -cont iv lasix, improving -monitor daily lytes, cr, wt Pafib (on coumadin): - Rate controlled on BB. - AC with coumadin. Dosing per inr. cad s/p inferior HI 1997, s/p cabg x3 1983 and 1997: -stable, no angina, nl lvef -cont medical management s/p bio avr - nl function on 06/2016 echo - nl fcn on echo here hld: -cont statin htn: - cont home meds. was also on hydralazine, may need to add back if bp remains elevated pad, s/p cea, s/p le bypass/stenting: - Claudication is stable. Pt has been evaluated by several vascular surgeons in the past and his le dz is deemed non revascularizable. Recent carotid US shows stable disease, no new sxs. Continue current cardiac meds. AAA: - Has been stable on serial non con chest/abd ct's over the past years. Has seen vascular in past and they felt he is not a surgical candidate due to high risk. - Continue bb, statin.
--- NOTE | 2017-06-18 12:39 | PN ---
Progress Note (short form) - Note Progress Note: PULMONARY Feels about the same. Still with shortness of breath, dry cough and chest tightness. No fevers or chills. Last Vital Signs Temp Pulse Resp BP Pulse Ox 98.2 F 63 24 151/89 95 06/18/17 06:00 06/18/17 08:15 06/18/17 06:00 06/18/17 06:00 06/18/17 08:15 Intake & Output 06/15/17 06/16/17 06/17/17 06/18/17 23:59 23:59 23:59 23:59 Intake Total 10 10 Output Total 250 1000 Balance -240 -990 Weight 85.729 kg 83.631 kg Gen: tachypneic with speaking Heart: RRR, loud S2 Lung: distant breath sounds, scattered rales Abd: soft, nontender Ext: + edema CBC, BMP 06/18/17 05:25 06/18/17 05:25 Active Medications Albuterol Sulfate (Ventolin 0.083% Nebulizer Soln -) 1 amp NEB Q4H PRN PRN Reason: SHORT OF BREATH/WHEEZING Last Admin: 06/17/17 18:49 Dose: 1 amp Albuterol/Ipratropium (Duoneb -) 1 amp NEB RQID [facility] Last Admin: 06/18/17 11:20 Dose: 1 amp Amlodipine Besylate (Norvasc -) 5 mg PO DAILY [facility] Last Admin: 06/18/17 09:52 Dose: 5 mg Ascorbic Acid (Vitamin C -) 500 mg PO DAILY [facility] Last Admin: 06/18/17 09:58 Dose: 500 mg Atenolol (Tenormin -) 25 mg PO BID [facility] Last Admin: 06/18/17 10:01 Dose: 25 mg Atorvastatin Calcium (Lipitor -) 20 mg PO HS [facility] Last Admin: 06/17/17 21:55 Dose: 20 mg Budesonide/Formoterol Fumarate (Symbicort 160/4.5mcg -) 2 puff IH BID [facility] Last Admin: 06/17/17 22:41 Dose: 2 puff Cholecalciferol (Vitamin D3 -) 2,000 unit PO DAILY [facility] Last Admin: 06/18/17 09:52 Dose: 2,000 unit Cyanocobalamin (Vitamin B12 -) 100 mcg PO DAILY [facility] Last Admin: 06/17/17 09:59 Dose: 100 mcg Docusate Sodium (Colace -) 100 mg PO TID [facility] Last Admin: 06/18/17 05:46 Dose: 100 mg Furosemide (Lasix Injection -) 40 mg IVPUSH BID [facility] Last Admin: 06/18/17 09:52 Dose: 40 mg Guaifenesin (Diabetic Tussin Dm -) 10 ml PO Q6H PRN PRN Reason: COUGH Azithromycin 500 mg/ Dextrose 250 mls @ 250 mls/hr IVPB Q24H [facility] Last Admin: 06/17/17 17:24 Dose: 250 mls/hr CEFTRIAXONE IN IS-OSM DEXTROSE (Ceftriaxone 2 Gm-D5w Bag) 2 gm in 50 mls @ 100 mls/hr IVPB DAILY [facility] Last Admin: 06/18/17 09:59 Dose: 100 mls/hr Losartan Potassium (Cozaar -) 50 mg PO DAILY [facility] Last Admin: 06/18/17 09:52 Dose: 50 mg Methylprednisolone Sodium Succinate (Solu-Medrol -) 40 mg IVPUSH Q6H-IV [facility] Last Admin: 06/18/17 09:52 Dose: 40 mg Potassium Chloride (K-Dur -) 20 meq PO BID [facility] Last Admin: 06/18/17 09:58 Dose: 20 meq Terazosin HCl (Hytrin -) 2 mg PO DAILY [facility] Last Admin: 06/18/17 09:59 Dose: 2 mg Warfarin Sodium (Coumadin -) 2 mg PO DAILY@1800 [facility] Last Admin: 06/17/17 18:52 Dose: 2 mg A/P Pneumonia Acute COPD Exacerbation Chronic Hypoxic Respiratory Failure Acute Diastolic Heart Failure CAD s/p CABG s/p bio AVR Pulmonary HTN Paroxysmal Atrial Fibrillation CKD PAD h/o DVT HTN - continue antibiotics - f/u cultures - IV lasix - monitor urine output, creatinine - continue medrol at current dose - inhaled bronchodilators - O2 to keep SpO2 >90% - rate control - continue anticoagulation
--- NOTE | 2017-06-18 14:06 | PN ---
Progress Note, Physician Chief Complaint: ID Dry couph No fevers Ceftriaxone and Azithromycin - Current Medication List Current Medications: Active Medications Albuterol Sulfate (Ventolin 0.083% Nebulizer Soln -) 1 amp NEB Q4H PRN PRN Reason: SHORT OF BREATH/WHEEZING Last Admin: 06/17/17 18:49 Dose: 1 amp Albuterol/Ipratropium (Duoneb -) 1 amp NEB RQID [facility] Last Admin: 06/18/17 11:20 Dose: 1 amp Amlodipine Besylate (Norvasc -) 5 mg PO DAILY [facility] Last Admin: 06/18/17 09:52 Dose: 5 mg Ascorbic Acid (Vitamin C -) 500 mg PO DAILY [facility] Last Admin: 06/18/17 09:58 Dose: 500 mg Atenolol (Tenormin -) 25 mg PO BID [facility] Last Admin: 06/18/17 10:01 Dose: 25 mg Atorvastatin Calcium (Lipitor -) 20 mg PO HS [facility] Last Admin: 06/17/17 21:55 Dose: 20 mg Budesonide/Formoterol Fumarate (Symbicort 160/4.5mcg -) 2 puff IH BID [facility] Last Admin: 06/17/17 22:41 Dose: 2 puff Cholecalciferol (Vitamin D3 -) 2,000 unit PO DAILY [facility] Last Admin: 06/18/17 09:52 Dose: 2,000 unit Cyanocobalamin (Vitamin B12 -) 100 mcg PO DAILY [facility] Last Admin: 06/17/17 09:59 Dose: 100 mcg Docusate Sodium (Colace -) 100 mg PO TID [facility] Last Admin: 06/18/17 05:46 Dose: 100 mg Furosemide (Lasix Injection -) 40 mg IVPUSH BID [facility] Last Admin: 06/18/17 09:52 Dose: 40 mg Guaifenesin (Diabetic Tussin Dm -) 10 ml PO Q6H PRN PRN Reason: COUGH Azithromycin 500 mg/ Dextrose 250 mls @ 250 mls/hr IVPB Q24H [facility] Last Admin: 06/17/17 17:24 Dose: 250 mls/hr CEFTRIAXONE IN IS-OSM DEXTROSE (Ceftriaxone 2 Gm-D5w Bag) 2 gm in 50 mls @ 100 mls/hr IVPB DAILY [facility] Last Admin: 06/18/17 09:59 Dose: 100 mls/hr Losartan Potassium (Cozaar -) 50 mg PO DAILY [facility] Last Admin: 06/18/17 09:52 Dose: 50 mg Methylprednisolone Sodium Succinate (Solu-Medrol -) 40 mg IVPUSH Q6H-IV [facility] Last Admin: 06/18/17 09:52 Dose: 40 mg Potassium Chloride (K-Dur -) 20 meq PO BID [facility] Last Admin: 06/18/17 09:58 Dose: 20 meq Terazosin HCl (Hytrin -) 2 mg PO DAILY [facility] Last Admin: 06/18/17 09:59 Dose: 2 mg Warfarin Sodium (Coumadin -) 2 mg PO DAILY@1800 [facility] Last Admin: 06/17/17 18:52 Dose: 2 mg - Objective Vital Signs: Vital Signs Temperature 98 F 06/18/17 12:54 Pulse Rate 71 06/18/17 12:54 Respiratory Rate 24 06/18/17 12:54 Blood Pressure 130/65 06/18/17 12:54 O2 Sat by Pulse Oximetry (%) 95 06/18/17 08:15 Constitutional: Yes: No Distress Neck: Yes: WNL Cardiovascular: Yes: Murmur, S1, S2 Respiratory: Yes: WNL, Regular, CTA Bilaterally, Rhonchi Gastrointestinal: Yes: WNL, Normal Bowel Sounds, Soft. No: Tenderness, Tenderness, Rebound Edema: Yes Labs: CBC, BMP 06/18/17 05:25 06/18/17 05:25 INR, PTT INR 3.35 (0.82-1.09) H D 06/18/17 05:25 Assessment/Plan Microbiology 06/16/17 20:36 Nasopharyngeal Swab Influenza Types A,B Antigen (MATILDE) - Final 06/16/17 20:36 Nasopharyngeal Swab - Final 06/17/17 12:30 Blood - Peripheral Venous Blood Culture - Preliminary NO GROWTH OBTAINED AFTER 24 HOURS, INCUBATION TO CONTINUE FOR 4 DAYS. 06/17/17 11:46 Blood - Peripheral Venous Blood Culture - Preliminary NO GROWTH OBTAINED AFTER 24 HOURS, INCUBATION TO CONTINUE FOR 4 DAYS. Laboratory Tests 06/18/17 06/18/17 05:25 05:25 WBC 8.0 D Hgb 8.9 L Hct 27.4 L Plt Count 148 D Creat Clearance w eGFR 33.78 Assessment 1. Exacerbation of COPD 2. Congestive heart failure 3. Bioprosthetic heart valve ( blood culture negative) 4. Coronary heart disease Plan As no infiltrate can stop Azithromycin Ceftriaxone short cource 1 gram daily Bennie FOREMAN
[2017-06-18] MEDS: BUDESONIDE/FORMETEROL FUMARATE 160/4.5 mcg INHALER IH SCH ×2 (14:15→21:48)
[2017-06-18] MEDS: CYANOCOBALAMIN (VITAMIN B-12) 100 MCG TABLET PO SCH (14:15)
[2017-06-18] MEDS: WARFARIN NA 2 MG TABLET (UD) PO SCH (18:04)
[2017-06-18] MEDS: guaiFENesin/D-M SUGAR-FREE/ACLHOL-FREE 118 ML BOTTLE PO PRN (21:38)
[2017-06-18] MEDS: ATORVASTATIN CA 20 MG TABLET (FP) PO SCH (21:40)
[2017-06-19] MEDS: methylPREDNISolone NA SUCC 40 MG/1 ML VIAL IVPUSH SCH ×4 (03:38→17:49)
[2017-06-19] MEDS: DOCUSATE SODIUM 100 MG CAPSULE (FP) PO SCH ×3 (06:32→21:12)
--- NOTE | 2017-06-19 08:00 | PN ---
Progress Note, Physician Chief Complaint: ID Remains afebrile Subjective improvement Denies SOB - Current Medication List Current Medications: Active Medications Albuterol Sulfate (Ventolin 0.083% Nebulizer Soln -) 1 amp NEB Q4H PRN PRN Reason: SHORT OF BREATH/WHEEZING Last Admin: 06/17/17 18:49 Dose: 1 amp Albuterol/Ipratropium (Duoneb -) 1 amp NEB RQID [facility] Last Admin: 06/18/17 20:06 Dose: 1 amp Amlodipine Besylate (Norvasc -) 5 mg PO DAILY [facility] Last Admin: 06/18/17 09:52 Dose: 5 mg Ascorbic Acid (Vitamin C -) 500 mg PO DAILY [facility] Last Admin: 06/18/17 09:58 Dose: 500 mg Atenolol (Tenormin -) 25 mg PO BID [facility] Last Admin: 06/18/17 21:40 Dose: 25 mg Atorvastatin Calcium (Lipitor -) 20 mg PO HS [facility] Last Admin: 06/18/17 21:40 Dose: 20 mg Budesonide/Formoterol Fumarate (Symbicort 160/4.5mcg -) 2 puff IH BID [facility] Last Admin: 06/18/17 21:48 Dose: 2 puff Cholecalciferol (Vitamin D3 -) 2,000 unit PO DAILY [facility] Last Admin: 06/18/17 09:52 Dose: 2,000 unit Cyanocobalamin (Vitamin B12 -) 100 mcg PO DAILY [facility] Last Admin: 06/18/17 14:15 Dose: Not Given Docusate Sodium (Colace -) 100 mg PO TID [facility] Last Admin: 06/19/17 06:32 Dose: 100 mg Furosemide (Lasix Injection -) 40 mg IVPUSH BID [facility] Last Admin: 06/18/17 21:40 Dose: 40 mg Guaifenesin (Diabetic Tussin Dm -) 10 ml PO Q6H PRN PRN Reason: COUGH Last Admin: 06/18/17 21:38 Dose: 10 ml CEFTRIAXONE 1 G/50 ML PREMIX (Ceftriaxone 1 Gm-D5w Bag) 50 mls @ 100 mls/hr IVPB DAILY [facility] Losartan Potassium (Cozaar -) 50 mg PO DAILY [facility] Last Admin: 06/18/17 09:52 Dose: 50 mg Methylprednisolone Sodium Succinate (Solu-Medrol -) 40 mg IVPUSH Q6H-IV [facility] Last Admin: 06/19/17 03:38 Dose: 40 mg Potassium Chloride (K-Dur -) 20 meq PO BID [facility] Last Admin: 06/18/17 21:40 Dose: 20 meq Terazosin HCl (Hytrin -) 2 mg PO DAILY [facility] Last Admin: 06/18/17 09:59 Dose: 2 mg Warfarin Sodium (Coumadin -) 2 mg PO DAILY@1800 [facility] Last Admin: 06/18/17 18:04 Dose: 2 mg - Objective Vital Signs: Vital Signs Temperature 97.2 F L 06/19/17 02:00 Pulse Rate 72 06/19/17 06:00 Respiratory Rate 20 06/19/17 06:00 Blood Pressure 156/90 06/19/17 06:00 O2 Sat by Pulse Oximetry (%) 95 06/18/17 21:00 Constitutional: Yes: No Distress Neck: Yes: WNL, Supple Cardiovascular: Yes: S1, S2 Respiratory: Yes: WNL, Regular, CTA Bilaterally, Rhonchi. No: Rales Gastrointestinal: Yes: WNL, Normal Bowel Sounds, Soft. No: Tenderness Labs: CBC, BMP 06/18/17 05:25 06/18/17 05:25 INR, PTT INR 3.35 (0.82-1.09) H D 06/18/17 05:25 Assessment/Plan Microbiology 06/16/17 23:06 Urine - Urine Clean Catch Urine Culture - Final NO GROWTH OBTAINED 06/16/17 20:36 Nasopharyngeal Swab Influenza Types A,B Antigen (MATILDE) - Final 06/16/17 20:36 Nasopharyngeal Swab - Final 06/17/17 12:30 Blood - Peripheral Venous Blood Culture - Preliminary NO GROWTH OBTAINED AFTER 24 HOURS, INCUBATION TO CONTINUE FOR 4 DAYS. 06/17/17 11:46 Blood - Peripheral Venous Blood Culture - Preliminary NO GROWTH OBTAINED AFTER 24 HOURS, INCUBATION TO CONTINUE FOR 4 DAYS. Laboratory Tests 06/18/17 06/18/17 05:25 05:25 WBC 8.0 D Hgb 8.9 L Hct 27.4 L Plt Count 148 D BUN 57 H D Assessment Exacerbation of COPD Congestive heart failure Bioprosthetic valve Plan Can be switched to po Ceftin 500mg bid another 2-3 days Bennie FOREMAN
[2017-06-19] MEDS: ALBUTEROL SO4 2.5/IPRATROPIUM 0.5 INH SOL 3 ML VIAL.NEB. NEB SCH ×4 (08:26→21:50)
[2017-06-19] MEDS ORDERED: PT OWN MED DRAWER 7, Y5N ONE (09:57)
[2017-06-19] MEDS: ASCORBIC ACID 500 MG TABLET (FP) PO SCH (09:59)
[2017-06-19] MEDS: hydrALAZINE HCL 25 MG TABLET (FP) PO SCH ×2 (09:59→21:11)
[2017-06-19] MEDS: LOSARTAN POTASSIUM 50 MG TABLET (FP) PO SCH (09:59)
[2017-06-19] MEDS: CHOLECALCIFEROL (VITAMIN D3) 1,000 UNIT TABLET (FP) PO SCH (09:59)
[2017-06-19] MEDS: FUROSEMIDE 40 MG/4 ML INJECTABLE VIAL IVPUSH SCH ×2 (09:59→21:12)
[2017-06-19] MEDS: amLODIPine BESYLATE 5 MG TABLET (FP) PO SCH (09:59)
[2017-06-19] MEDS: POTASSIUM CHLORIDE TABS 20 MEQ TABLET.ER (FP) PO SCH ×2 (09:59→21:12)
[2017-06-19] MEDS: CYANOCOBALAMIN (VITAMIN B-12) 100 MCG TABLET PO SCH (09:59)
[2017-06-19] MEDS ORDERED: CEFTRIAXONE 1 G/50 ML PREMIX 50 ML IVPB SCH (10:00)
[2017-06-19] MEDS: BUDESONIDE/FORMETEROL FUMARATE 160/4.5 mcg INHALER IH SCH ×2 (10:00→21:13)
[2017-06-19] MEDS: TERAZOSIN HCL 1 MG CAPSULE PO SCH (10:01)
[2017-06-19] MEDS: ATENOLOL 25 MG TABLET (FP) PO SCH ×2 (10:01→21:14)
[2017-06-19] MEDS: CEFUROXIME AXETIL 500 MG TABLET PO SCH ×2 (10:02→21:12)
--- NOTE | 2017-06-19 10:10 | PN ---
Progress Note (short form) - Note Progress Note: s: less sob today, no cp palps dizzy o: Vital Signs Period Temp Pulse Resp BP Sys/Hernandez Pulse Ox Last 24 Hr 97.2 F-98 F 65-75 20-24 102-160/70-90 95 nad, calm jvd elevated, neck supple cta bl, nl eff irregular 2/6 soft sys murmur at usb + bs soft nt nd ext with trace edema, no cyanosis, clubbing aaox3 no jaundice, diaphoresis Current Medications Generic Name Dose Route Start Last Admin Trade Name Freq PRN Reason Stop Dose Admin Albuterol Sulfate 1 amp 06/16/17 23:16 06/17/17 18:49 Ventolin 0.083% Nebulizer Soln - NEB 1 amp Q4H PRN Administration SHORT OF BREATH/WHEEZING Albuterol/Ipratropium 1 amp 06/17/17 20:00 06/19/17 08:26 Duoneb - NEB 1 amp RQID [facility] Administration Amlodipine Besylate 5 mg 06/17/17 10:00 06/19/17 09:59 Norvasc - PO 5 mg DAILY [facility] Administration Ascorbic Acid 500 mg 06/18/17 10:00 06/19/17 09:59 Vitamin C - PO 500 mg DAILY [facility] Administration Atenolol 25 mg 06/16/17 22:00 06/19/17 10:01 Tenormin - PO 25 mg BID [facility] Administration Atorvastatin Calcium 20 mg 06/16/17 22:00 06/18/17 21:40 Lipitor - PO 20 mg HS [facility] Administration Budesonide/Formoterol Fumarate 2 puff 06/16/17 22:00 06/19/17 10:00 Symbicort 160/4.5mcg - IH 2 puff BID [facility] Administration Cefuroxime Axetil 500 mg 06/19/17 10:00 06/19/17 10:02 Ceftin - PO 500 mg BID [facility] Administration Cholecalciferol 2,000 unit 06/17/17 10:00 06/19/17 09:59 Vitamin D3 - PO 2,000 unit DAILY [facility] Administration Cyanocobalamin 100 mcg 06/17/17 10:00 06/19/17 09:59 Vitamin B12 - PO 100 mcg DAILY [facility] Administration Docusate Sodium 100 mg 06/16/17 22:00 06/19/17 06:32 Colace - PO 100 mg TID [facility] Administration Furosemide 40 mg 06/17/17 10:00 06/19/17 09:59 Lasix Injection - IVPUSH 40 mg BID [facility] Administration Guaifenesin 10 ml 06/17/17 10:22 06/18/17 21:38 Diabetic Tussin Dm - PO 10 ml Q6H PRN Administration COUGH Hydralazine HCl 25 mg 06/19/17 10:00 06/19/17 09:59 Apresoline - PO 25 mg BID [facility] Administration Losartan Potassium 50 mg 06/17/17 10:00 06/19/17 09:59 Cozaar - PO 50 mg DAILY [facility] Administration Methylprednisolone Sodium Succinate 40 mg 06/17/17 03:00 06/19/17 09:58 Solu-Medrol - IVPUSH 40 mg Q6H-IV [facility] Administration Potassium Chloride 20 meq 06/16/17 22:00 06/19/17 09:59 K-Dur - PO 20 meq BID [facility] Administration Terazosin HCl 2 mg 06/18/17 10:00 06/19/17 10:01 Hytrin - PO 2 mg DAILY [facility] Administration Warfarin Sodium 2 mg 06/16/17 22:00 06/18/17 18:04 Coumadin - PO 2 mg DAILY@1800 [facility] Administration CBC, BMP 06/18/17 05:25 06/18/17 05:25 EKG: afib,rate controlled, nl qtc, no ischemic changes cxr: pna echo 09/2015: nl lv/rv, mild lae, nl bio avr, mild tr, mild-mod phtn echo 05/2017: mod lve, nl lvef, rv tds, sev ricardo, mild-mod mr, sev tr, sev phtn, no AI/ carotids 12/2015: jess >70% (same location as prior stenosis seen 09/2014), no sig stenosis on left cta 2006: patent knowles/shaggy, occluded svg to OM Mibi 2011 showed only possible minimal inferolateral ischemia abd us 01/2016: 4.8 cm AAA tele: afib, rate ok a/p: 86 m hx pafib (on coumadin), cad s/p inferior MO 1997, s/p cabg x3 1983 and 1997, bio avr (1983 and 1997), hld, htn, tia, s/p right cea, 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 sob, cp, cough: -no signs acs, cp is likely msk from coughing, ce's neg, ecg w/o ischemic changes -likely combo of pna/chf -cont abx per ID. cont iv lasix acute diastolic chf: -possibly triggered by pna -cont iv lasix, improving -monitor daily lytes, cr, wt Pafib (on coumadin): - Rate controlled on BB. - AC with coumadin. Dosing per inr. cad s/p inferior MO 1997, s/p cabg x3 1983 and 1997: -stable, no angina, nl lvef -cont medical management s/p bio avr - nl function on 06/2016 echo - nl fcn on echo here hld: -cont statin htn: - cont home meds. was also on hydralazine, may need to add back if bp remains elevated pad, s/p cea, s/p le bypass/stenting: - Claudication is stable. Pt has been evaluated by several vascular surgeons in the past and his le dz is deemed non revascularizable. Recent carotid US shows stable disease, no new sxs. Continue current cardiac meds. AAA: - Has been stable on serial non con chest/abd ct's over the past years. Has seen vascular in past and they felt he is not a surgical candidate due to high risk. - Continue bb, statin.
[2017-06-19 11:17] LABS: BASO % 0.1 % (0-2.0); HEMATOCRIT 28.7 % (35.4-49); HEMOGLOBIN 9.3 GM/dL (11.7-16.9); LYMPH % 3.8 % (8-40); MCH 28.2 pg (25.7-33.7); MCHC 32.3 g/dl (32.0-35.9); MEAN CELL VOLUME 87.6 fl (80-96); MEAN PLT VOLUME 8.3 fl (7.5-11.1); MONO % 3.8 % (3.8-10.2); NEUT % 92.3 % (42.8-82.8); PLATELET COUNT 152 K/MM3 (134-434); RBC 3.28 M/mm3 (4.00-5.60); RDW 19.2 % (11.9-15.9); WHITE BLOOD COUNT 7.9 K/mm3 (4.0-10.0)
[2017-06-19 11:18] LABS: INR 3.92 (0.82-1.09); PROTHROMBIN TIME (PATIENT) 44.3 SEC (9.98-11.88)
[2017-06-19 11:27] LABS: ANION GAP 9 (8-16); BLOOD UREA NITROGEN 63 mg/dL (7-18); CHLORIDE 103 mmol/L (98-107); CO2 27 mmol/L (21-32); CREATININE 1.8 mg/dL (0.7-1.3); GLUCOSE,RANDOM 161 mg/dL (74-106); POTASSIUM 4.2 mmol/L (3.5-5.1); SODIUM 139 mmol/L (136-145)
--- NOTE | 2017-06-19 13:21 | PN ---
Progress Note (short form) - Note Progress Note: Breathing feels a little better. Some dry cough persists. No CP. Afebrile. Intake & Output 06/16/17 06/17/17 06/18/17 06/19/17 23:59 23:59 23:59 23:59 Intake Total 10 110 Output Total 250 1475 Balance -240 -1365 Weight 189 lb 184 lb 6 oz 181 lb Last Vital Signs Temp Pulse Resp BP Pulse Ox 98.3 F 78 20 160/79 97 06/19/17 09:00 06/19/17 12:42 06/19/17 12:42 06/19/17 12:42 06/19/17 09:00 Active Medications Albuterol Sulfate (Ventolin 0.083% Nebulizer Soln -) 1 amp NEB Q4H PRN PRN Reason: SHORT OF BREATH/WHEEZING Last Admin: 06/17/17 18:49 Dose: 1 amp Albuterol/Ipratropium (Duoneb -) 1 amp NEB RQID [facility] Last Admin: 06/19/17 11:59 Dose: 1 amp Amlodipine Besylate (Norvasc -) 5 mg PO DAILY [facility] Last Admin: 06/19/17 09:59 Dose: 5 mg Ascorbic Acid (Vitamin C -) 500 mg PO DAILY [facility] Last Admin: 06/19/17 09:59 Dose: 500 mg Atenolol (Tenormin -) 25 mg PO BID [facility] Last Admin: 06/19/17 10:01 Dose: 25 mg Atorvastatin Calcium (Lipitor -) 20 mg PO HS [facility] Last Admin: 06/18/17 21:40 Dose: 20 mg Budesonide/Formoterol Fumarate (Symbicort 160/4.5mcg -) 2 puff IH BID [facility] Last Admin: 06/19/17 10:00 Dose: 2 puff Cefuroxime Axetil (Ceftin -) 500 mg PO BID [facility] Last Admin: 06/19/17 10:02 Dose: 500 mg Cholecalciferol (Vitamin D3 -) 2,000 unit PO DAILY [facility] Last Admin: 06/19/17 09:59 Dose: 2,000 unit Cyanocobalamin (Vitamin B12 -) 100 mcg PO DAILY [facility] Last Admin: 06/19/17 09:59 Dose: 100 mcg Docusate Sodium (Colace -) 100 mg PO TID [facility] Last Admin: 06/19/17 06:32 Dose: 100 mg Furosemide (Lasix Injection -) 40 mg IVPUSH BID [facility] Last Admin: 06/19/17 09:59 Dose: 40 mg Guaifenesin (Diabetic Tussin Dm -) 10 ml PO Q6H PRN PRN Reason: COUGH Last Admin: 06/18/17 21:38 Dose: 10 ml Hydralazine HCl (Apresoline -) 25 mg PO BID [facility] Last Admin: 06/19/17 09:59 Dose: 25 mg Losartan Potassium (Cozaar -) 50 mg PO DAILY [facility] Last Admin: 06/19/17 09:59 Dose: 50 mg Methylprednisolone Sodium Succinate (Solu-Medrol -) 40 mg IVPUSH Q6H-IV [facility] Last Admin: 06/19/17 09:58 Dose: 40 mg Potassium Chloride (K-Dur -) 20 meq PO BID [facility] Last Admin: 06/19/17 09:59 Dose: 20 meq Terazosin HCl (Hytrin -) 2 mg PO DAILY [facility] Last Admin: 06/19/17 10:01 Dose: 2 mg Gen: NAD Heart: RRR, loud S2 Lung: distant breath sounds, scattered rales Abd: soft, nontender Ext: + edema Laboratory Results - last 24 hr 06/17/17 06/18/17 06/18/17 21:39 05:33 16:46 WBC RBC Hgb Hct MCV MCH MCHC RDW Plt Count MPV Neutrophils % Lymphocytes % Monocytes % Eosinophils % Basophils % PT with INR INR Sodium Potassium Chloride Carbon Dioxide Anion Gap BUN Creatinine POC Glucometer 160.82854 164.16507 130.44702 Random Glucose Calcium 06/18/17 06/19/17 06/19/17 21:13 10:25 10:25 WBC 7.9 RBC 3.28 L Hgb 9.3 L Hct 28.7 L MCV 87.6 MCH 28.2 MCHC 32.3 RDW 19.2 H Plt Count 152 MPV 8.3 Neutrophils % 92.3 H Lymphocytes % 3.8 L Monocytes % 3.8 Eosinophils % 0.0 Basophils % 0.1 D PT with INR INR Sodium 139 Potassium 4.2 Chloride 103 Carbon Dioxide 27 Anion Gap 9 BUN 63 H Creatinine 1.8 H POC Glucometer [phone] Random Glucose 161 H Calcium 8.0 L 06/19/17 10:25 WBC RBC Hgb Hct MCV MCH MCHC RDW Plt Count MPV Neutrophils % Lymphocytes % Monocytes % Eosinophils % Basophils % PT with INR 44.30 H INR 3.92 H Sodium Potassium Chloride Carbon Dioxide Anion Gap BUN Creatinine POC Glucometer Random Glucose Calcium A/P Pneumonia Acute COPD Exacerbation Chronic Hypoxic Respiratory Failure Acute Diastolic Heart Failure CAD s/p CABG s/p bio AVR Pulmonary HTN Paroxysmal Atrial Fibrillation CKD PAD h/o DVT HTN - ABX - IV lasix - monitor urine output, creatinine - Taper Medrol - inhaled bronchodilators - O2 to keep SpO2 >90% - rate control - AC Dr Johnson
--- NOTE | 2017-06-19 15:24 | PN ---
Progress Note, Physician Chief Complaint: resting comfortably no cp no sob - Current Medication List Current Medications: Active Medications Albuterol Sulfate (Ventolin 0.083% Nebulizer Soln -) 1 amp NEB Q4H PRN PRN Reason: SHORT OF BREATH/WHEEZING Last Admin: 06/17/17 18:49 Dose: 1 amp Albuterol/Ipratropium (Duoneb -) 1 amp NEB RQID [facility] Last Admin: 06/19/17 11:59 Dose: 1 amp Amlodipine Besylate (Norvasc -) 5 mg PO DAILY [facility] Last Admin: 06/19/17 09:59 Dose: 5 mg Ascorbic Acid (Vitamin C -) 500 mg PO DAILY [facility] Last Admin: 06/19/17 09:59 Dose: 500 mg Atenolol (Tenormin -) 25 mg PO BID [facility] Last Admin: 06/19/17 10:01 Dose: 25 mg Atorvastatin Calcium (Lipitor -) 20 mg PO HS [facility] Last Admin: 06/18/17 21:40 Dose: 20 mg Budesonide/Formoterol Fumarate (Symbicort 160/4.5mcg -) 2 puff IH BID [facility] Last Admin: 06/19/17 10:00 Dose: 2 puff Cefuroxime Axetil (Ceftin -) 500 mg PO BID [facility] Last Admin: 06/19/17 10:02 Dose: 500 mg Cholecalciferol (Vitamin D3 -) 2,000 unit PO DAILY [facility] Last Admin: 06/19/17 09:59 Dose: 2,000 unit Cyanocobalamin (Vitamin B12 -) 100 mcg PO DAILY [facility] Last Admin: 06/19/17 09:59 Dose: 100 mcg Docusate Sodium (Colace -) 100 mg PO TID [facility] Last Admin: 06/19/17 13:27 Dose: 100 mg Furosemide (Lasix Injection -) 40 mg IVPUSH BID [facility] Last Admin: 06/19/17 09:59 Dose: 40 mg Guaifenesin (Diabetic Tussin Dm -) 10 ml PO Q6H PRN PRN Reason: COUGH Last Admin: 06/18/17 21:38 Dose: 10 ml Hydralazine HCl (Apresoline -) 25 mg PO BID [facility] Last Admin: 06/19/17 09:59 Dose: 25 mg Losartan Potassium (Cozaar -) 50 mg PO DAILY [facility] Last Admin: 06/19/17 09:59 Dose: 50 mg Methylprednisolone Sodium Succinate (Solu-Medrol -) 40 mg IVPUSH Q6H-IV [facility] Last Admin: 06/19/17 14:53 Dose: 40 mg Potassium Chloride (K-Dur -) 20 meq PO BID [facility] Last Admin: 06/19/17 09:59 Dose: 20 meq Terazosin HCl (Hytrin -) 2 mg PO DAILY [facility] Last Admin: 06/19/17 10:01 Dose: 2 mg - Objective Vital Signs: Vital Signs Temperature 98.3 F 06/19/17 09:00 Pulse Rate 78 06/19/17 12:42 Respiratory Rate 20 06/19/17 12:42 Blood Pressure 160/79 06/19/17 12:42 O2 Sat by Pulse Oximetry (%) 97 06/19/17 09:00 Constitutional: Yes: Calm Cardiovascular: Yes: Regular Rate and Rhythm, S1, S2 Respiratory: Yes: Diminished Gastrointestinal: Yes: Normal Bowel Sounds, Soft Edema: Yes Neurological: Yes: Alert, Oriented Labs: CBC, BMP 06/19/17 10:25 06/19/17 10:25 INR, PTT INR 3.92 (0.82-1.09) H 06/19/17 10:25 Problem List - Problems (1) Acute diastolic (congestive) heart failure Assessment/Plan: iv lasix and potassium Code(s): I50.31 - ACUTE DIASTOLIC (CONGESTIVE) HEART FAILURE (2) Atrial fibrillation Assessment/Plan: BB Code(s): I48.91 - UNSPECIFIED ATRIAL FIBRILLATION Qualifiers: Atrial fibrillation type: chronic Qualified Code(s): I48.2 - Chronic atrial fibrillation (3) COPD (chronic obstructive pulmonary disease) Assessment/Plan: bronchodilators and iv steroids taper to q8 Code(s): J44.9 - CHRONIC OBSTRUCTIVE PULMONARY DISEASE, UNSPECIFIED (4) History of aortic valve replacement with bioprosthetic valve Assessment/Plan: on couamdin on hold bc inr in above range Code(s): Z98.890 - OTHER SPECIFIED POSTPROCEDURAL STATES; Z95.3 - PRESENCE OF XENOGENIC HEART VALVE (5) Pneumonia Assessment/Plan: ceftin for 3 days Code(s): J18.9 - PNEUMONIA, UNSPECIFIED ORGANISM
[2017-06-19] MEDS: ATORVASTATIN CA 20 MG TABLET (FP) PO SCH (21:13)
[2017-06-20] MEDS: methylPREDNISolone NA SUCC 40 MG/1 ML VIAL IVPUSH SCH ×3 (02:09→17:21)
[2017-06-20] MEDS: DOCUSATE SODIUM 100 MG CAPSULE (FP) PO SCH ×3 (05:08→22:34)
[2017-06-20 06:12] LABS: HEMATOCRIT 28.1 % (35.4-49); HEMOGLOBIN 9.2 GM/dL (11.7-16.9); LYMPH % 3.8 % (8-40); MCH 28.6 pg (25.7-33.7); MCHC 32.8 g/dl (32.0-35.9); MEAN PLT VOLUME 8.3 fl (7.5-11.1); NEUT % 89.2 % (42.8-82.8); PLATELET COUNT 145 K/MM3 (134-434); RBC 3.22 M/mm3 (4.00-5.60); RDW 19.1 % (11.9-15.9); WHITE BLOOD COUNT 6.3 K/mm3 (4.0-10.0)
[2017-06-20 06:28] LABS: PROTHROMBIN TIME (PATIENT) 46.1 SEC (9.98-11.88)
[2017-06-20 06:45] LABS: INR 4.08 (0.82-1.09)
[2017-06-20 06:51] LABS: ALBUMIN 3.5 g/dl (3.4-5.0); ANION GAP 10 (8-16); BLOOD UREA NITROGEN 65 mg/dL (7-18); CALCIUM 8.1 mg/dL (8.5-10.1); CHLORIDE 102 mmol/L (98-107); CO2 30 mmol/L (21-32); CREATININE 1.7 mg/dL (0.7-1.3); GLUCOSE,RANDOM 103 mg/dL (74-106); POTASSIUM 3.8 mmol/L (3.5-5.1); SGOT/AST 28 U/L (15-37); SGPT/ALT 37 U/L (12-78); SODIUM 142 mmol/L (136-145)
[2017-06-20 06:53] LABS: ALK PHOS 72 U/L (45-117); BILIRUBIN,TOTAL 0.5 mg/dL (0.2-1.0)
--- NOTE | 2017-06-20 07:56 | PN ---
Progress Note, Physician Chief Complaint: sob History of Present Illness: sob "a little better" still orthopneic, sleeping almost upright position. still cough with phlegm. notes urine trickling stream after lasix. no cp, palpit ex cigs - Current Medication List Current Medications: Active Medications Albuterol Sulfate (Ventolin 0.083% Nebulizer Soln -) 1 amp NEB Q4H PRN PRN Reason: SHORT OF BREATH/WHEEZING Last Admin: 06/17/17 18:49 Dose: 1 amp Albuterol/Ipratropium (Duoneb -) 1 amp NEB RQID [facility] Last Admin: 06/19/17 21:50 Dose: 1 amp Amlodipine Besylate (Norvasc -) 5 mg PO DAILY [facility] Last Admin: 06/19/17 09:59 Dose: 5 mg Ascorbic Acid (Vitamin C -) 500 mg PO DAILY [facility] Last Admin: 06/19/17 09:59 Dose: 500 mg Atenolol (Tenormin -) 25 mg PO BID [facility] Last Admin: 06/19/17 21:14 Dose: 25 mg Atorvastatin Calcium (Lipitor -) 20 mg PO HS [facility] Last Admin: 06/19/17 21:13 Dose: 20 mg Budesonide/Formoterol Fumarate (Symbicort 160/4.5mcg -) 2 puff IH BID [facility] Last Admin: 06/19/17 21:13 Dose: 2 puff Cefuroxime Axetil (Ceftin -) 500 mg PO BID [facility] Last Admin: 06/19/17 21:12 Dose: 500 mg Cholecalciferol (Vitamin D3 -) 2,000 unit PO DAILY [facility] Last Admin: 06/19/17 09:59 Dose: 2,000 unit Cyanocobalamin (Vitamin B12 -) 100 mcg PO DAILY [facility] Last Admin: 06/19/17 09:59 Dose: 100 mcg Docusate Sodium (Colace -) 100 mg PO TID [facility] Last Admin: 06/20/17 05:08 Dose: Not Given Furosemide (Lasix Injection -) 40 mg IVPUSH BID [facility] Last Admin: 06/19/17 21:12 Dose: 40 mg Guaifenesin (Diabetic Tussin Dm -) 10 ml PO Q6H PRN PRN Reason: COUGH Last Admin: 06/18/17 21:38 Dose: 10 ml Hydralazine HCl (Apresoline -) 25 mg PO BID [facility] Last Admin: 06/19/17 21:11 Dose: 25 mg Losartan Potassium (Cozaar -) 50 mg PO DAILY [facility] Last Admin: 06/19/17 09:59 Dose: 50 mg Methylprednisolone Sodium Succinate (Solu-Medrol -) 40 mg IVPUSH Q8H-IV [facility] Last Admin: 06/20/17 02:09 Dose: 40 mg Potassium Chloride (K-Dur -) 20 meq PO BID [facility] Last Admin: 06/19/17 21:12 Dose: 20 meq Terazosin HCl (Hytrin -) 2 mg PO DAILY [facility] Last Admin: 06/19/17 10:01 Dose: 2 mg - Objective Vital Signs: Vital Signs Temperature 98.1 F 06/20/17 06:00 Pulse Rate 76 06/20/17 06:00 Respiratory Rate 20 06/20/17 06:00 Blood Pressure 155/80 06/20/17 06:37 O2 Sat by Pulse Oximetry (%) 97 06/19/17 21:00 Constitutional: Yes: No Distress, Calm Eyes: No: Sclera Icterus HENT: No: Nasal Congestion Cardiovascular: Yes: Pulse Irregular, JVD (definite EJ dist, ? IJ as well), S1, S2, Other (PMI non diplaced). No: Gallop, Murmur Respiratory: Yes: Wheezes. No: Accessory Muscle Use, Rales Gastrointestinal: Yes: Normal Bowel Sounds, Soft. No: Tenderness Musculoskeletal: Yes: Other (No kyphosis) Extremities: No: Cold Edema: Yes (1+ ankles) Integumentary: No: Jaundice Neurological: Yes: Alert, Oriented (x3) Psychiatric: No: Agitated Labs: CBC, BMP 06/20/17 05:40 06/20/17 05:40 INR, PTT INR 4.08 (0.82-1.09) H* 06/20/17 05:40 - ....Imaging EKG: Other (tele: AF, good HRs) Assessment/Plan EKG: afib,rate controlled, nl qtc, no ischemic changes cxr: pna echo 05/2017: mod lve, nl lvef, rv tds, sev ricardo, mild-mod mr, sev tr, sev phtn, no AI/ echo 09/2015: nl lv/rv, mild lae, nl bio avr, mild tr, mild-mod phtn carotids 12/2015: jess >70% (same location as prior stenosis seen 09/2014), no sig stenosis on left cta 2006: patent knowles/shaggy, occluded svg to OM Mibi 2011 showed only possible minimal inferolateral ischemia abd us 01/2016: 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 sob, a.e. copd/respiratory infection, acute diast chf, severe pulm HTN: -no s/sx of ACS. ce's neg, ecg w/o ischemic changes -BNP 5K (prior range 1K-5K), however decr GFR confounds -pulm pressure up significantly vs prior echo--? due to component of volume excess/high left sided filling pressures -being treated by pulm for a.e. copd and respiratory infection. -CT chest images reviewed (06/17): small R effusion -suspect ongoing component of HFpEF here, JVD likely. cont lasix 40 iv bid. creat stable at baseline, bun rising ? steroids effect. insert fox to monitor diuresis. Pafib (on coumadin): - Rate controlled on BB. - AC with coumadin. Dosing per inr. cad s/p inferior DC 1997, s/p cabg x3 1983 and 1997: -stable, no angina, nl lvef -cont medical management s/p bio avr - nl function on 06/2016 echo - nl fcn on echo here CKD: - baseline creatinine on prior admits ranges 1.5-2.0 - creat stable here hld: -cont statin htn: - bp moderately elevated here - cont current meds, added back hydralazine 25mg bid - observe bp trend, consider incr hydral dose pad, s/p cea, s/p le bypass/stenting: - Claudication is stable. Pt has been evaluated by several vascular surgeons in the past and his le dz is deemed non revascularizable. Recent carotid US shows stable disease, no new sxs. Continue current cardiac meds. AAA: - Has been stable on serial non con chest/abd ct's over the past years. Has seen vascular in past and they felt he is not a surgical candidate due to high risk. - Continue bb, statin.
[2017-06-20] MEDS: ALBUTEROL SO4 2.5/IPRATROPIUM 0.5 INH SOL 3 ML VIAL.NEB. NEB SCH ×4 (08:40→21:00)
[2017-06-20] MEDS ORDERED: PT OWN MED DRAWER 7, Y5N ONE ×2 (08:59→21:58)
[2017-06-20] MEDS: amLODIPine BESYLATE 5 MG TABLET (FP) PO SCH (09:10)
[2017-06-20] MEDS: CYANOCOBALAMIN (VITAMIN B-12) 100 MCG TABLET PO SCH (09:10)
[2017-06-20] MEDS: POTASSIUM CHLORIDE TABS 20 MEQ TABLET.ER (FP) PO SCH ×2 (09:10→22:34)
[2017-06-20] MEDS: FUROSEMIDE 40 MG/4 ML INJECTABLE VIAL IVPUSH SCH (09:10)
[2017-06-20] MEDS: LOSARTAN POTASSIUM 50 MG TABLET (FP) PO SCH (09:10)
[2017-06-20] MEDS: CHOLECALCIFEROL (VITAMIN D3) 1,000 UNIT TABLET (FP) PO SCH (09:10)
[2017-06-20] MEDS: hydrALAZINE HCL 25 MG TABLET (FP) PO SCH ×2 (09:10→22:34)
[2017-06-20] MEDS: ASCORBIC ACID 500 MG TABLET (FP) PO SCH (09:10)
[2017-06-20] MEDS: BUDESONIDE/FORMETEROL FUMARATE 160/4.5 mcg INHALER IH SCH ×2 (09:11→22:34)
[2017-06-20] MEDS: ATENOLOL 25 MG TABLET (FP) PO SCH ×2 (09:11→22:35)
--- NOTE | 2017-06-20 09:29 | CON.NEP ---
Consult Consult Specialty:: Nephrology Referred by:: Dr. Mobley Reason for Consultation:: CKD with Volume overload - History of Present Illness Chief Complaint: SOB, Leg swelling History of Present Illness: This is a 86 year old gentleman with PMhx of CHF, CKD Stage 3 w/o proteinuria, Hypertension, BPH, COPD who presented to the ED with complaints of SOB, LE swelling and reported 10 lb wegiht gain over 1 week. Pt is well known to me and follows with me in the office. Pt had been on higher dose Lasix + Metolazone over the past several months with dramatic improvement in volume status. Pt was taken off metolazone because of syncope and concern for orthostatic hypotension. Lasix dose also decreased b/c of rash suspected to be due to lasix. Pt reports improvement in symptoms once coming in to the hospital. No fever, chills, N/V/D. Pt also reported increased urinary hesitancy at home. - History Source History Provided By: Patient Limitations to Obtaining History: No Limitations - Past Medical History [employer]: Yes: TIA Cardio/Vascular: Yes: AFIB, CAD, Deep Vein Thrombosis, HTN, Hyperlipdemia, Other (AAA, PAD) Pulmonary: Yes: COPD, O2 Dependent Renal/: Yes: Renal Inusuff, BPH Infectious Disease: Yes: Other (history of pseudomonas osteomyelitis right foot 2012) - Past Surgical History Past Surgical History: Yes: CABG, Carotid Endarterectomy (right), Valve Replacement (bioAVR 1983, 1997) Additional Surgical History: bilateral lower extremity stent and bypass - Alcohol/Substance Use Hx Alcohol Use: No - Smoking History Smoking history: Former smoker Have you smoked in the past 12 months: No Aproximately how many cigarettes per day: 0 If you are a former smoker, when did you quit?: 45 years ago - Social History Usual Living Arrangement: With Spouse ADL: Independent History of Recent Travel: No Home Medications - Allergies Allergies/Adverse Reactions: Allergies Allergy/AdvReac Type Severity Reaction Status Date / Time black pepper Allergy Verified 06/16/17 17:56 Penicillins Allergy Rash Verified 06/16/17 17:56 RED PEPPER Allergy Uncoded 06/16/17 17:56 - Home Medications Home Medications: Ambulatory Orders Albuterol 2.5/Ipratropium 0.5 [Duoneb -] 1 neb NEB Q4H 06/16/17 Amlodipine Besylate [Norvasc -] 5 mg PO DAILY 06/16/17 Ascorbic Acid [Vitamin C] 500 mg PO DAILY 06/16/17 Atenolol [Tenormin -] 25 mg PO BID 06/16/17 Atorvastatin Ca [Lipitor] 20 mg PO HS 06/16/17 Bifidobacterium Infantis [Align] 10.5 mg PO DAILY 06/16/17 Budesonide/Formeterol Fumarate [SYMBICORT 160/4.5mcg -] 1 inh PO BID 06/16/17 Cholecalciferol (Vitamin D3) [Vitamin D] 2,000 unit PO DAILY 06/16/17 Cyanocobalamin [Vitamin B12 -] 100 mcg PO DAILY 06/16/17 Docusate Sodium [Colace] 100 mg PO TID 06/16/17 Furosemide [Lasix] 40 mg PO BID 06/16/17 Ipratropium [place] [Atrovent Hfa] 17 mcg IH DAILY 06/16/17 Losartan Potassium 50 mg PO DAILY 06/16/17 Potassium Chloride 20 meq PO BID 06/16/17 Terazosin HCl 2 mg PO DAILY 06/16/17 Warfarin Sodium [Coumadin] 2 mg PO DAILY 06/16/17 Family Disease History - Family Disease History Family History: Unremarkable Review of Systems - Review of Systems Constitutional: reports: No Symptoms Eyes: reports: No Symptoms HENT: reports: No Symptoms Neck: reports: No Symptoms Cardiovascular: reports: Edema, Shortness of Breath Respiratory: reports: Cough, Orthopnea, SOB, SOB on Exertion Gastrointestinal: reports: No Symptoms Genitourinary: reports: Other (hesitency) Musculoskeletal: reports: No Symptoms Integumentary: reports: No Symptoms Neurological: reports: No Symptoms Nephrology Consult - Height Height: 5 ft 5 in - Weight Weight: 83.2 kg - BMI Body Mass Index (BMI): 30.5 - Lab Results CBC,BMP: CBC, BMP 06/20/17 05:40 06/20/17 05:40 Anion Gap: Anion Gap Anion Gap 10 (8-16) 06/20/17 05:40 - Imaging Chest X-ray: Report Reviewed Cat Scan: Report Reviewed - Physical Examination Vital Signs: Vital Signs Temperature 98.1 F 06/20/17 06:00 Pulse Rate 76 06/20/17 06:00 Respiratory Rate 20 06/20/17 06:00 Blood Pressure 155/80 06/20/17 06:37 O2 Sat by Pulse Oximetry (%) 97 06/19/17 21:00 Constitutional: Yes: No Distress Eyes: Yes: Conjunctiva Clear HENT: Yes: Atraumatic, Normocephalic Neck: Yes: Supple Cardiovascular: Yes: Regular Rate and Rhythm. No: Gallop, Murmur Respiratory: Yes: Regular, CTA Bilaterally Gastrointestinal: Yes: Normal Bowel Sounds, Soft Extremities: No: Cold, Cool, Cyanosis Edema: Yes Edema: LLE: 1+, RLE: 1+ Neurological: Yes: Alert, Oriented Assessment/Plan 86 year old gentleman with PMhx of CHF, CKD Stage 3 w/o proteinuria, Hypertension, BPH, COPD who presented to the ED with complaints of SOB, LE swelling and reported 10 lb wegiht gain over 1 week. #CKD Stage 3 with volume overload pt is responsive to IV Lasix will given additional dose of PO Metolazone today before afternoon Lasix trend daily weights, BUN/Cr and electrolytes BUN with rapid rise in hospital but likely due to steroids + diuresis on ARB, would maintain for now unless Cr rises to > 2 avoid nsaids, IV contrast #CHF continue diuresis with IV Lasix + Metolazone Cardiology following #Hx of COPD on IV steroids Pulmonary following #Normocytic Anemia Check iron studies no acute indication for transfusion pt may be a candidate for LUIS given CKD Thank you Will follow Ko Toth DO
[2017-06-20 09:30] VITALS: BMI 30.5
--- NOTE | 2017-06-20 10:31 | PN ---
Progress Note (short form) - Note Progress Note: PULMONARY Still with shortness of breath, cough and chest tightness. No fevers or chills. Last Vital Signs Temp Pulse Resp BP Pulse Ox 98.1 F 76 20 155/80 97 06/20/17 06:00 06/20/17 06:00 06/20/17 06:00 06/20/17 06:37 06/19/17 21:00 Gen: tachypneic with speaking Heart: RRR, loud S2 Lung: distant breath sounds, scattered rales Abd: soft, nontender Ext: + edema CBC, BMP 06/20/17 05:40 06/20/17 05:40 Active Medications Albuterol Sulfate (Ventolin 0.083% Nebulizer Soln -) 1 amp NEB Q4H PRN PRN Reason: SHORT OF BREATH/WHEEZING Last Admin: 06/17/17 18:49 Dose: 1 amp Albuterol/Ipratropium (Duoneb -) 1 amp NEB RQID [facility] Last Admin: 06/20/17 08:40 Dose: 1 amp Amlodipine Besylate (Norvasc -) 5 mg PO DAILY [facility] Last Admin: 06/20/17 09:10 Dose: 5 mg Ascorbic Acid (Vitamin C -) 500 mg PO DAILY [facility] Last Admin: 06/20/17 09:10 Dose: 500 mg Atenolol (Tenormin -) 25 mg PO BID [facility] Last Admin: 06/20/17 09:11 Dose: 25 mg Atorvastatin Calcium (Lipitor -) 20 mg PO HS [facility] Last Admin: 06/19/17 21:13 Dose: 20 mg Budesonide/Formoterol Fumarate (Symbicort 160/4.5mcg -) 2 puff IH BID [facility] Last Admin: 06/20/17 09:11 Dose: 2 puff Cefuroxime Axetil (Ceftin -) 500 mg PO BID [facility] Last Admin: 06/19/17 21:12 Dose: 500 mg Cholecalciferol (Vitamin D3 -) 2,000 unit PO DAILY [facility] Last Admin: 06/20/17 09:10 Dose: 2,000 unit Cyanocobalamin (Vitamin B12 -) 100 mcg PO DAILY [facility] Last Admin: 06/20/17 09:10 Dose: 100 mcg Docusate Sodium (Colace -) 100 mg PO TID [facility] Last Admin: 06/20/17 05:08 Dose: Not Given Furosemide (Lasix Injection -) 40 mg IVPUSH BID [facility] Last Admin: 06/20/17 09:10 Dose: 40 mg Guaifenesin (Diabetic Tussin Dm -) 10 ml PO Q6H PRN PRN Reason: COUGH Last Admin: 06/18/17 21:38 Dose: 10 ml Hydralazine HCl (Apresoline -) 25 mg PO BID [facility] Last Admin: 06/20/17 09:10 Dose: 25 mg Losartan Potassium (Cozaar -) 50 mg PO DAILY [facility] Last Admin: 06/20/17 09:10 Dose: 50 mg Methylprednisolone Sodium Succinate (Solu-Medrol -) 40 mg IVPUSH Q8H-IV [facility] Last Admin: 06/20/17 09:10 Dose: 40 mg Metolazone (Zaroxolyn -) 2.5 mg PO ONCE ONE Stop: 06/20/17 13:31 Potassium Chloride (K-Dur -) 20 meq PO BID [facility] Last Admin: 06/20/17 09:10 Dose: 20 meq Terazosin HCl (Hytrin -) 2 mg PO DAILY [facility] Last Admin: 06/19/17 10:01 Dose: 2 mg A/P Pneumonia Acute COPD Exacerbation Chronic Hypoxic Respiratory Failure Acute Diastolic Heart Failure CAD s/p CABG s/p bio AVR Pulmonary HTN Paroxysmal Atrial Fibrillation CKD PAD h/o DVT HTN - continue antibiotics - IV lasix - monitor urine output, creatinine - continue medrol at current dose - inhaled bronchodilators - O2 to keep SpO2 >90% - rate control - continue anticoagulation
[2017-06-20] MEDS: TERAZOSIN HCL 1 MG CAPSULE PO SCH (10:46)
[2017-06-20] MEDS: CEFUROXIME AXETIL 500 MG TABLET PO SCH ×2 (10:47→22:34)
[2017-06-20] MEDS ORDERED: METOLAZONE 2.5 MG TABLET (FP) PO ONE (13:30)
[2017-06-20] MEDS ORDERED: FUROSEMIDE 40 MG/4 ML INJECTABLE VIAL IVPUSH SCH (14:00)
--- NOTE | 2017-06-20 15:14 | PN ---
Progress Note, Physician Chief Complaint: THIS IS MY FIRST ENCOUNTER WITH THIS PATIENT AWAKE ALERT BEDSIDE BARROW INSERTED FOR RETENTION - Current Medication List Current Medications: Active Medications Albuterol Sulfate (Ventolin 0.083% Nebulizer Soln -) 1 amp NEB Q4H PRN PRN Reason: SHORT OF BREATH/WHEEZING Last Admin: 06/17/17 18:49 Dose: 1 amp Albuterol/Ipratropium (Duoneb -) 1 amp NEB RQID [facility] Last Admin: 06/20/17 11:48 Dose: 1 amp Amlodipine Besylate (Norvasc -) 5 mg PO DAILY [facility] Last Admin: 06/20/17 09:10 Dose: 5 mg Ascorbic Acid (Vitamin C -) 500 mg PO DAILY [facility] Last Admin: 06/20/17 09:10 Dose: 500 mg Atenolol (Tenormin -) 25 mg PO BID [facility] Last Admin: 06/20/17 09:11 Dose: 25 mg Atorvastatin Calcium (Lipitor -) 20 mg PO HS [facility] Last Admin: 06/19/17 21:13 Dose: 20 mg Budesonide/Formoterol Fumarate (Symbicort 160/4.5mcg -) 2 puff IH BID [facility] Last Admin: 06/20/17 09:11 Dose: 2 puff Cefuroxime Axetil (Ceftin -) 500 mg PO BID [facility] Last Admin: 06/20/17 10:47 Dose: 500 mg Cholecalciferol (Vitamin D3 -) 2,000 unit PO DAILY [facility] Last Admin: 06/20/17 09:10 Dose: 2,000 unit Cyanocobalamin (Vitamin B12 -) 100 mcg PO DAILY [facility] Last Admin: 06/20/17 09:10 Dose: 100 mcg Docusate Sodium (Colace -) 100 mg PO TID [facility] Last Admin: 06/20/17 14:41 Dose: Not Given Furosemide (Lasix Injection -) 40 mg IVPUSH BIDLASIX [facility] Guaifenesin (Diabetic Tussin Dm -) 10 ml PO Q6H PRN PRN Reason: COUGH Last Admin: 06/18/17 21:38 Dose: 10 ml Hydralazine HCl (Apresoline -) 25 mg PO BID [facility] Last Admin: 06/20/17 09:10 Dose: 25 mg Losartan Potassium (Cozaar -) 50 mg PO DAILY [facility] Last Admin: 06/20/17 09:10 Dose: 50 mg Methylprednisolone Sodium Succinate (Solu-Medrol -) 40 mg IVPUSH Q8H-IV [facility] Last Admin: 06/20/17 09:10 Dose: 40 mg Potassium Chloride (K-Dur -) 20 meq PO BID [facility] Last Admin: 06/20/17 09:10 Dose: 20 meq Terazosin HCl (Hytrin -) 2 mg PO DAILY [facility] Last Admin: 06/20/17 10:46 Dose: 2 mg - Objective Vital Signs: Vital Signs Temperature 98.2 F 06/20/17 10:00 Pulse Rate 80 06/20/17 10:00 Respiratory Rate 16 06/20/17 10:00 Blood Pressure 143/94 06/20/17 10:00 O2 Sat by Pulse Oximetry (%) 95 06/20/17 10:00 Constitutional: Yes: Mild Distress Eyes: Yes: WNL HENT: Yes: WNL Neck: Yes: WNL Cardiovascular: Yes: Pulse Irregular Respiratory: Yes: On Nasal O2, Poor Air Entry Gastrointestinal: Yes: WNL Genitourinary: Yes: [place] Present Musculoskeletal: Yes: Muscle Weakness Extremities: Yes: WNL Edema: Yes Edema: LLE: 1+, RLE: 1+ Peripheral Pulses WNL: Yes Integumentary: Yes: WNL, Venous Stasis Changes Wound/Incision: Yes: Clean/Dry Neurological: Yes: WNL ...Motor Strength: WNL Psychiatric: Yes: WNL Labs: CBC, BMP 06/20/17 05:40 06/20/17 05:40 INR, PTT INR 4.08 (0.82-1.09) H* 06/20/17 05:40 Problem List - Problems (1) Acute diastolic (congestive) heart failure Code(s): I50.31 - ACUTE DIASTOLIC (CONGESTIVE) HEART FAILURE (2) Acute on chronic respiratory failure with hypoxemia Code(s): J96.21 - ACUTE AND CHRONIC RESPIRATORY FAILURE WITH HYPOXIA (3) Aortic aneurysm Code(s): I71.9 - AORTIC ANEURYSM OF UNSPECIFIED SITE, WITHOUT RUPTURE (4) Atrial fibrillation Code(s): I48.91 - UNSPECIFIED ATRIAL FIBRILLATION Qualifiers: Atrial fibrillation type: chronic Qualified Code(s): I48.2 - Chronic atrial fibrillation (5) COPD (chronic obstructive pulmonary disease) Code(s): J44.9 - CHRONIC OBSTRUCTIVE PULMONARY DISEASE, UNSPECIFIED (6) Chronic renal insufficiency Code(s): N18.9 - CHRONIC KIDNEY DISEASE, UNSPECIFIED Qualifiers: Chronic kidney disease stage: unspecified stage Qualified Code(s): N18.9 - Chronic kidney disease, unspecified (7) Congestive heart failure Code(s): I50.9 - HEART FAILURE, UNSPECIFIED Qualifiers: Congestive heart failure type: unspecified Congestive heart failure chronicity: acute Qualified Code(s): I50.9 - Heart failure, unspecified (8) History of aortic valve replacement with bioprosthetic valve Code(s): Z98.890 - OTHER SPECIFIED POSTPROCEDURAL STATES; Z95.3 - PRESENCE OF XENOGENIC HEART VALVE Assessment/Plan 02 SUPPORT DIURES WITH LASIX IV DAILY [facility] EVAL OOB TO CHAIR [facility]
[2017-06-20] MEDS ORDERED: FUROSEMIDE 40 MG/4 ML INJECTABLE VIAL ONE (16:38)
[2017-06-20] MEDS: ATORVASTATIN CA 20 MG TABLET (FP) PO SCH (22:34)
[2017-06-21] MEDS: methylPREDNISolone NA SUCC 40 MG/1 ML VIAL IVPUSH SCH ×3 (03:30→22:16)
[2017-06-21] MEDS ORDERED: FUROSEMIDE 40 MG/4 ML INJECTABLE VIAL IVPUSH SCH (06:00)
[2017-06-21 06:16] LABS: BASO % 0.1 % (0-2.0); EOS % 0.1 % (0-4.5); HEMATOCRIT 27.2 % (35.4-49); HEMOGLOBIN 8.9 GM/dL (11.7-16.9); LYMPH % 5.4 % (8-40); MCH 28.5 pg (25.7-33.7); MCHC 32.8 g/dl (32.0-35.9); MEAN CELL VOLUME 86.8 fl (80-96); MEAN PLT VOLUME 8.4 fl (7.5-11.1); NEUT % 85.4 % (42.8-82.8); PLATELET COUNT 138 K/MM3 (134-434); RBC 3.14 M/mm3 (4.00-5.60); RDW 19.1 % (11.9-15.9)
[2017-06-21] MEDS: DOCUSATE SODIUM 100 MG CAPSULE (FP) PO SCH ×3 (07:23→22:17)
[2017-06-21 07:44] LABS: ALBUMIN 3.3 g/dl (3.4-5.0); ANION GAP 6 (8-16); BLOOD UREA NITROGEN 58 mg/dL (7-18); CALCIUM 7.7 mg/dL (8.5-10.1); CHLORIDE 99 mmol/L (98-107); CO2 33 mmol/L (21-32); CREATININE 1.6 mg/dL (0.7-1.3); GLUCOSE,RANDOM 99 mg/dL (74-106); MAGNESIUM 2.5 mg/dL (1.8-2.4); PHOSPHOROUS 3.3 mg/dL (2.5-4.9); POTASSIUM 3.9 mmol/L (3.5-5.1); SGOT/AST 23 U/L (15-37); SGPT/ALT 36 U/L (12-78); SODIUM 138 mmol/L (136-145); TOT PROT 6.5 g/dl (6.4-8.2)
[2017-06-21 07:45] LABS: ALK PHOS 66 U/L (45-117); BILIRUBIN,TOTAL 0.5 mg/dL (0.2-1.0)
--- NOTE | 2017-06-21 07:53 | PN ---
Progress Note, Physician Chief Complaint: sob History of Present Illness: still coughing fits, feels he can't expectorate the phlegm. sob at times as well. no cp no leg swelling ex cigs - Current Medication List Current Medications: Active Medications Albuterol Sulfate (Ventolin 0.083% Nebulizer Soln -) 1 amp NEB Q4H PRN PRN Reason: SHORT OF BREATH/WHEEZING Last Admin: 06/17/17 18:49 Dose: 1 amp Albuterol/Ipratropium (Duoneb -) 1 amp NEB RQID [facility] Last Admin: 06/20/17 21:00 Dose: 1 amp Amlodipine Besylate (Norvasc -) 5 mg PO DAILY [facility] Last Admin: 06/20/17 09:10 Dose: 5 mg Ascorbic Acid (Vitamin C -) 500 mg PO DAILY [facility] Last Admin: 06/20/17 09:10 Dose: 500 mg Atenolol (Tenormin -) 25 mg PO BID [facility] Last Admin: 06/20/17 22:35 Dose: 25 mg Atorvastatin Calcium (Lipitor -) 20 mg PO HS [facility] Last Admin: 06/20/17 22:34 Dose: 20 mg Budesonide/Formoterol Fumarate (Symbicort 160/4.5mcg -) 2 puff IH BID [facility] Last Admin: 06/20/17 22:34 Dose: 2 puff Cefuroxime Axetil (Ceftin -) 500 mg PO BID [facility] Last Admin: 06/20/17 22:34 Dose: 500 mg Cholecalciferol (Vitamin D3 -) 2,000 unit PO DAILY [facility] Last Admin: 06/20/17 09:10 Dose: 2,000 unit Cyanocobalamin (Vitamin B12 -) 100 mcg PO DAILY [facility] Last Admin: 06/20/17 09:10 Dose: 100 mcg Docusate Sodium (Colace -) 100 mg PO TID [facility] Last Admin: 06/21/17 07:23 Dose: Not Given Furosemide (Lasix Injection -) 40 mg IVPUSH BIDLASIX [facility] Last Admin: 06/21/17 07:22 Dose: 40 mg Guaifenesin (Diabetic Tussin Dm -) 10 ml PO Q6H PRN PRN Reason: COUGH Last Admin: 06/18/17 21:38 Dose: 10 ml Hydralazine HCl (Apresoline -) 25 mg PO BID [facility] Last Admin: 06/20/17 22:34 Dose: 25 mg Losartan Potassium (Cozaar -) 50 mg PO DAILY [facility] Last Admin: 06/20/17 09:10 Dose: 50 mg Methylprednisolone Sodium Succinate (Solu-Medrol -) 40 mg IVPUSH Q8H-IV [facility] Last Admin: 06/21/17 03:30 Dose: 40 mg Potassium Chloride (K-Dur -) 20 meq PO BID [facility] Last Admin: 06/20/17 22:34 Dose: 20 meq Terazosin HCl (Hytrin -) 2 mg PO DAILY [facility] Last Admin: 06/20/17 10:46 Dose: 2 mg - Objective Vital Signs: Vital Signs Temperature 98 F 06/21/17 06:00 Pulse Rate 68 06/21/17 06:00 Respiratory Rate 18 06/21/17 06:00 Blood Pressure 178/96 06/21/17 06:00 O2 Sat by Pulse Oximetry (%) 95 06/20/17 20:31 Constitutional: Yes: No Distress, Calm Eyes: No: Sclera Icterus HENT: No: Nasal Congestion Cardiovascular: Yes: Pulse Irregular, JVD (probably to jaw), S1, S2, Other (PMI non diplaced). No: Gallop, Murmur Respiratory: Yes: Rhonchi (diffuse), Wheezes (diffuse). No: Accessory Muscle Use Gastrointestinal: Yes: Normal Bowel Sounds, Soft. No: Tenderness Musculoskeletal: Yes: Other (No kyphosis) Extremities: No: Cold Edema: No Integumentary: No: Jaundice Neurological: Yes: Alert, Oriented (x3) Psychiatric: No: Agitated Labs: CBC, BMP 06/21/17 05:08 INR, PTT INR 4.08 (0.82-1.09) H* 06/20/17 05:40 - ....Imaging EKG: Other (tele: Afib, good HRs) Assessment/Plan EKG: afib,rate controlled, nl qtc, no ischemic changes cxr: pna echo 05/2017: mod lve, nl lvef, rv tds, sev ricardo, mild-mod mr, sev tr, sev phtn, no AI/ echo 09/2015: nl lv/rv, mild lae, nl bio avr, mild tr, mild-mod phtn carotids 12/2015: jess >70% (same location as prior stenosis seen 09/2014), no sig stenosis on left cta 2006: patent knowles/shaggy, occluded svg to OM Mibi 2011 showed only possible minimal inferolateral ischemia abd us 01/2016: 4.8 cm AAA a/p: 86 m hx pafib (on coumadin), cad s/p inferior [place] 1997, s/p cabg x3 1983 and 1997, bio avr (1983 and 1997), hld, htn, tia, s/p right cea, 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 sob, a.e. copd/respiratory infection, acute diast chf, severe pulm HTN: -no s/sx of ACS. ce's neg, ecg w/o ischemic changes -BNP 5K (prior range 1K-5K), however decr GFR confounds -pulm pressure up significantly vs prior echo--? due to component of volume excess/high left sided filling pressures -cont tx per pulm for a.e. copd and PNA/bronchitis -CT chest images reviewed (06/17): small R effusion -2/: suspect ongoing component of HFpEF here, JVD likely. cont lasix 40 iv bid. creat stable at baseline, bun rising ? steroids effect. insert fox to monitor diuresis. -06/21: fox in, 2800 cc UOP yest. remains with probably JVD (to jaw). renal fxn stable (actually improving today)--incr lasix 40 iv bid to 80 iv bid. Pafib (on coumadin): - Rate controlled on BB. - AC with coumadin. Dosing per inr. cad s/p inferior [place] 1997, s/p cabg x3 1983 and 1997: -stable, no angina, nl lvef -cont medical management s/p bio avr - nl function on 06/2016 echo - nl fcn on echo here CKD: - baseline creatinine on prior admits ranges 1.5-2.0 - creat stable here hld: -cont statin htn: - bp moderately elevated here - cont current meds, added back hydralazine 25mg bid - observe bp trend, consider incr hydral dose pad, s/p cea, s/p le bypass/stenting: - Claudication is stable. Pt has been evaluated by several vascular surgeons in the past and his le dz is deemed non revascularizable. Recent carotid US shows stable disease, no new sxs. Continue current cardiac meds. AAA: - Has been stable on serial non con chest/abd ct's over the past years. Has seen vascular in past and they felt he is not a surgical candidate due to high risk. - Continue bb, statin.
[2017-06-21] MEDS: ALBUTEROL SO4 2.5/IPRATROPIUM 0.5 INH SOL 3 ML VIAL.NEB. NEB SCH ×4 (07:58→20:50)
--- NOTE | 2017-06-21 08:24 | PN ---
Progress Note (short form) - Note Progress Note: Renal follow up for CKD with volume overload Pt seen and examined in Tele no acute complaints no sob, chest pain, abd pain on NC O2 Russo placed yesterday making good urine Vital Signs Temperature 98 F 06/21/17 06:00 Pulse Rate 68 06/21/17 06:00 Respiratory Rate 18 06/21/17 06:00 Blood Pressure 178/96 06/21/17 06:00 O2 Sat by Pulse Oximetry (%) 95 06/20/17 20:31 Intake & Output 06/18/17 06/19/17 06/20/17 06/21/17 23:59 23:59 23:59 23:59 Intake Total 110 1100 300 Output Total 1475 2800 1300 Balance -1365 1100 -2500 -1300 Weight 83.631 kg 82.1 kg 83.2 kg 84.085 kg NAD RRR CTA trace LE edema Russo in place with yellow urine CBC, BMP 06/21/17 05:08 06/21/17 05:08 Laboratory Tests 06/21/17 05:08 Calcium 7.7 L Phosphorus 3.3 Magnesium 2.5 H Albumin 3.3 L Current Medications Albuterol Sulfate (Ventolin 0.083% Nebulizer Soln -) 1 amp NEB Q4H PRN PRN Reason: SHORT OF BREATH/WHEEZING Last Admin: 06/17/17 18:49 Dose: 1 amp Albuterol/Ipratropium (Duoneb -) 1 amp NEB RQID [facility] Last Admin: 06/21/17 07:58 Dose: 1 amp Amlodipine Besylate (Norvasc -) 5 mg PO DAILY [facility] Last Admin: 06/20/17 09:10 Dose: 5 mg Ascorbic Acid (Vitamin C -) 500 mg PO DAILY [facility] Last Admin: 06/20/17 09:10 Dose: 500 mg Atenolol (Tenormin -) 25 mg PO BID [facility] Last Admin: 06/20/17 22:35 Dose: 25 mg Atorvastatin Calcium (Lipitor -) 20 mg PO HS [facility] Last Admin: 06/20/17 22:34 Dose: 20 mg Budesonide/Formoterol Fumarate (Symbicort 160/4.5mcg -) 2 puff IH BID [facility] Last Admin: 06/20/17 22:34 Dose: 2 puff Cefuroxime Axetil (Ceftin -) 500 mg PO BID [facility] Last Admin: 06/20/17 22:34 Dose: 500 mg Cholecalciferol (Vitamin D3 -) 2,000 unit PO DAILY [facility] Last Admin: 06/20/17 09:10 Dose: 2,000 unit Cyanocobalamin (Vitamin B12 -) 100 mcg PO DAILY [facility] Last Admin: 06/20/17 09:10 Dose: 100 mcg Docusate Sodium (Colace -) 100 mg PO TID [facility] Last Admin: 06/21/17 07:23 Dose: Not Given Furosemide (Lasix Injection -) 40 mg IVPUSH BIDLASIX [facility] Last Admin: 06/21/17 07:22 Dose: 40 mg Guaifenesin (Diabetic Tussin Dm -) 10 ml PO Q6H PRN PRN Reason: COUGH Last Admin: 06/18/17 21:38 Dose: 10 ml Hydralazine HCl (Apresoline -) 25 mg PO BID [facility] Last Admin: 06/20/17 22:34 Dose: 25 mg Losartan Potassium (Cozaar -) 50 mg PO DAILY [facility] Last Admin: 06/20/17 09:10 Dose: 50 mg Methylprednisolone Sodium Succinate (Solu-Medrol -) 40 mg IVPUSH Q8H-IV [facility] Last Admin: 06/21/17 03:30 Dose: 40 mg Metolazone (Zaroxolyn -) 2.5 mg PO ONCE ONE Stop: 06/21/17 13:31 Potassium Chloride (K-Dur -) 20 meq PO BID [facility] Last Admin: 06/20/17 22:34 Dose: 20 meq Terazosin HCl (Hytrin -) 2 mg PO DAILY [facility] Last Admin: 06/20/17 10:46 Dose: 2 mg 86 year old gentleman with PMhx of CHF, CKD Stage 3 w/o proteinuria, Hypertension, BPH, COPD who presented to the ED with complaints of SOB, LE swelling and reported 10 lb wegiht gain over 1 week. #CKD Stage 3 with volume overload BUN/Cr improved with IV Lasix + Metolazone Continue IV Lasix will re-dose metolazone 2.5mg toady as well continue Russo for additional 24 hours trend urine output Trend renal function and electrolytes #CHF continue diuresis with IV Lasix + Metolazone Cardiology following #Hx of COPD on IV steroids Pulmonary following #Normocytic Anemia iron studies added to am labs no indication for transfusion at this time Ko Toth DO
[2017-06-21] MEDS ORDERED: PT OWN MED DRAWER 7, Y5N ONE ×2 (09:30→22:15)
[2017-06-21] MEDS: POTASSIUM CHLORIDE TABS 20 MEQ TABLET.ER (FP) PO SCH ×2 (09:34→22:16)
[2017-06-21] MEDS: CHOLECALCIFEROL (VITAMIN D3) 1,000 UNIT TABLET (FP) PO SCH (09:34)
[2017-06-21] MEDS: LOSARTAN POTASSIUM 50 MG TABLET (FP) PO SCH (09:35)
[2017-06-21] MEDS: ASCORBIC ACID 500 MG TABLET (FP) PO SCH (09:35)
[2017-06-21] MEDS: CYANOCOBALAMIN (VITAMIN B-12) 100 MCG TABLET PO SCH (09:35)
[2017-06-21] MEDS: hydrALAZINE HCL 25 MG TABLET (FP) PO SCH ×2 (09:35→22:16)
[2017-06-21] MEDS: ATENOLOL 25 MG TABLET (FP) PO SCH ×2 (09:37→22:16)
[2017-06-21] MEDS: amLODIPine BESYLATE 5 MG TABLET (FP) PO SCH (09:38)
[2017-06-21] MEDS: TERAZOSIN HCL 1 MG CAPSULE PO SCH (09:38)
[2017-06-21] MEDS: CEFUROXIME AXETIL 500 MG TABLET PO SCH ×2 (09:39→22:17)
[2017-06-21] MEDS: BUDESONIDE/FORMETEROL FUMARATE 160/4.5 mcg INHALER IH SCH ×2 (09:43→22:00)
--- NOTE | 2017-06-21 10:31 | PN ---
Progress Note (short form) - Note Progress Note: PULMONARY Russo placed with good urine output. No fevers or chills. Less short of breath. Last Vital Signs Temp Pulse Resp BP Pulse Ox 98 F 68 18 178/96 95 06/21/17 06:00 06/21/17 06:00 06/21/17 06:00 06/21/17 06:00 06/20/17 20:31 Intake & Output 06/18/17 06/19/17 06/20/17 06/21/17 23:59 23:59 23:59 23:59 Intake Total 110 1100 300 Output Total 1475 2800 1300 Balance -1365 1100 -2500 -1300 Weight 83.631 kg 82.1 kg 83.2 kg 84.085 kg Gen: less tachypneic with speaking Heart: RRR, loud S2 Lung: distant breath sounds, scattered rales Abd: soft, nontender Ext: + edema CBC, BMP 06/21/17 05:08 06/21/17 05:08 Active Medications Albuterol Sulfate (Ventolin 0.083% Nebulizer Soln -) 1 amp NEB Q4H PRN PRN Reason: SHORT OF BREATH/WHEEZING Last Admin: 06/17/17 18:49 Dose: 1 amp Albuterol/Ipratropium (Duoneb -) 1 amp NEB RQID [facility] Last Admin: 06/21/17 07:58 Dose: 1 amp Amlodipine Besylate (Norvasc -) 5 mg PO DAILY [facility] Last Admin: 06/21/17 09:38 Dose: 5 mg Ascorbic Acid (Vitamin C -) 500 mg PO DAILY [facility] Last Admin: 06/21/17 09:35 Dose: 500 mg Atenolol (Tenormin -) 25 mg PO BID [facility] Last Admin: 06/21/17 09:37 Dose: 25 mg Atorvastatin Calcium (Lipitor -) 20 mg PO HS [facility] Last Admin: 06/20/17 22:34 Dose: 20 mg Budesonide/Formoterol Fumarate (Symbicort 160/4.5mcg -) 2 puff IH BID [facility] Last Admin: 06/21/17 09:43 Dose: 2 puff Cefuroxime Axetil (Ceftin -) 500 mg PO BID [facility] Last Admin: 06/21/17 09:39 Dose: 500 mg Cholecalciferol (Vitamin D3 -) 2,000 unit PO DAILY [facility] Last Admin: 06/21/17 09:34 Dose: 2,000 unit Cyanocobalamin (Vitamin B12 -) 100 mcg PO DAILY [facility] Last Admin: 06/21/17 09:35 Dose: 100 mcg Docusate Sodium (Colace -) 100 mg PO TID [facility] Last Admin: 06/21/17 07:23 Dose: Not Given Furosemide (Lasix Injection -) 40 mg IVPUSH BIDLASIX [facility] Last Admin: 06/21/17 07:22 Dose: 40 mg Guaifenesin (Diabetic Tussin Dm -) 10 ml PO Q6H PRN PRN Reason: COUGH Last Admin: 06/18/17 21:38 Dose: 10 ml Hydralazine HCl (Apresoline -) 25 mg PO BID [facility] Last Admin: 06/21/17 09:35 Dose: 25 mg Losartan Potassium (Cozaar -) 50 mg PO DAILY [facility] Last Admin: 06/21/17 09:35 Dose: 50 mg Methylprednisolone Sodium Succinate (Solu-Medrol -) 40 mg IVPUSH Q8H-IV [facility] Last Admin: 06/21/17 09:35 Dose: 40 mg Metolazone (Zaroxolyn -) 2.5 mg PO ONCE ONE Stop: 06/21/17 13:31 Potassium Chloride (K-Dur -) 20 meq PO BID [facility] Last Admin: 06/21/17 09:34 Dose: 20 meq Terazosin HCl (Hytrin -) 2 mg PO DAILY [facility] Last Admin: 06/21/17 09:38 Dose: 2 mg A/P Pneumonia Acute COPD Exacerbation Chronic Hypoxic Respiratory Failure Acute Diastolic Heart Failure CAD s/p CABG s/p bio AVR Pulmonary HTN Paroxysmal Atrial Fibrillation CKD PAD h/o DVT HTN - continue antibiotics - continue lasix, zaroxolyn - monitor urine output, creatinine - will decrease medrol to q12h - inhaled bronchodilators - O2 to keep SpO2 >90% - rate control - continue anticoagulation
[2017-06-21] MEDS ORDERED: METOLAZONE 2.5 MG TABLET (FP) PO ONE (13:30)
[2017-06-21] MEDS: FUROSEMIDE 40 MG/4 ML INJECTABLE VIAL IVPUSH SCH (14:18)
[2017-06-21 14:22] LABS: INR 3.13 (0.82-1.09); PROTHROMBIN TIME (PATIENT) 35.4 SEC (9.98-11.88)
--- NOTE | 2017-06-21 15:04 | PN ---
Progress Note, Physician Chief Complaint: AWAKE ALERT NAD - Current Medication List Current Medications: Active Medications Albuterol Sulfate (Ventolin 0.083% Nebulizer Soln -) 1 amp NEB Q4H PRN PRN Reason: SHORT OF BREATH/WHEEZING Last Admin: 06/17/17 18:49 Dose: 1 amp Albuterol/Ipratropium (Duoneb -) 1 amp NEB RQID [facility] Last Admin: 06/21/17 12:04 Dose: 1 amp Amino Acids (Prosource No Carb Liquid Pkt) 30 ml PO BID@0800,1730 [facility] Amlodipine Besylate (Norvasc -) 5 mg PO DAILY [facility] Last Admin: 06/21/17 09:38 Dose: 5 mg Ascorbic Acid (Vitamin C -) 500 mg PO DAILY [facility] Last Admin: 06/21/17 09:35 Dose: 500 mg Atenolol (Tenormin -) 25 mg PO BID [facility] Last Admin: 06/21/17 09:37 Dose: 25 mg Atorvastatin Calcium (Lipitor -) 20 mg PO HS [facility] Last Admin: 06/20/17 22:34 Dose: 20 mg Budesonide/Formoterol Fumarate (Symbicort 160/4.5mcg -) 2 puff IH BID [facility] Last Admin: 06/21/17 09:43 Dose: 2 puff Cefuroxime Axetil (Ceftin -) 500 mg PO BID [facility] Last Admin: 06/21/17 09:39 Dose: 500 mg Cholecalciferol (Vitamin D3 -) 2,000 unit PO DAILY [facility] Last Admin: 06/21/17 09:34 Dose: 2,000 unit Cyanocobalamin (Vitamin B12 Injection -) 1,000 mcg IM DAILY [facility] Docusate Sodium (Colace -) 100 mg PO TID [facility] Last Admin: 06/21/17 13:39 Dose: Not Given Furosemide (Lasix Injection -) 80 mg IVPUSH BIDLASIX [facility] Last Admin: 06/21/17 14:18 Dose: 80 mg Guaifenesin (Diabetic Tussin Dm -) 10 ml PO Q6H PRN PRN Reason: COUGH Last Admin: 06/18/17 21:38 Dose: 10 ml Hydralazine HCl (Apresoline -) 25 mg PO BID [facility] Last Admin: 06/21/17 09:35 Dose: 25 mg Losartan Potassium (Cozaar -) 50 mg PO DAILY [facility] Last Admin: 06/21/17 09:35 Dose: 50 mg Methylprednisolone Sodium Succinate (Solu-Medrol -) 40 mg IVPUSH Q12H [facility] Potassium Chloride (K-Dur -) 20 meq PO BID [facility] Last Admin: 06/21/17 09:34 Dose: 20 meq Terazosin HCl (Hytrin -) 2 mg PO DAILY [facility] Last Admin: 06/21/17 09:38 Dose: 2 mg - Objective Vital Signs: Vital Signs Temperature 98.4 F 06/21/17 10:00 Pulse Rate 72 06/21/17 10:00 Respiratory Rate 18 06/21/17 10:00 Blood Pressure 148/78 06/21/17 10:00 O2 Sat by Pulse Oximetry (%) 95 06/21/17 10:00 Constitutional: Yes: No Distress Eyes: Yes: WNL HENT: Yes: WNL Neck: Yes: WNL Cardiovascular: Yes: WNL Respiratory: Yes: WNL Gastrointestinal: Yes: WNL ...Rectal Exam: Yes: WNL Genitourinary: Yes: WNL Breast(s): Yes: WNL Musculoskeletal: Yes: WNL Extremities: Yes: WNL Edema: Yes Edema: LLE: 1+, RLE: 1+ Peripheral Pulses WNL: Yes Integumentary: Yes: WNL Wound/Incision: Yes: Clean/Dry Neurological: Yes: WNL, Pre-Existing Deficit Psychiatric: Yes: WNL Labs: CBC, BMP 06/21/17 05:08 06/21/17 05:08 INR, PTT INR 3.13 (0.82-1.09) H 06/21/17 13:50 Problem List - Problems (1) Acute diastolic (congestive) heart failure Code(s): I50.31 - ACUTE DIASTOLIC (CONGESTIVE) HEART FAILURE (2) Acute on chronic respiratory failure with hypoxemia Code(s): J96.21 - ACUTE AND CHRONIC RESPIRATORY FAILURE WITH HYPOXIA (3) Aortic aneurysm Code(s): I71.9 - AORTIC ANEURYSM OF UNSPECIFIED SITE, WITHOUT RUPTURE (4) Atrial fibrillation Code(s): I48.91 - UNSPECIFIED ATRIAL FIBRILLATION Qualifiers: Atrial fibrillation type: chronic Qualified Code(s): I48.2 - Chronic atrial fibrillation (5) COPD (chronic obstructive pulmonary disease) Code(s): J44.9 - CHRONIC OBSTRUCTIVE PULMONARY DISEASE, UNSPECIFIED (6) Chronic renal insufficiency Code(s): N18.9 - CHRONIC KIDNEY DISEASE, UNSPECIFIED Qualifiers: Chronic kidney disease stage: unspecified stage Qualified Code(s): N18.9 - Chronic kidney disease, unspecified (7) Congestive heart failure Code(s): I50.9 - HEART FAILURE, UNSPECIFIED Qualifiers: Congestive heart failure type: unspecified Congestive heart failure chronicity: acute Qualified Code(s): I50.9 - Heart failure, unspecified (8) History of aortic valve replacement with bioprosthetic valve Code(s): Z98.890 - OTHER SPECIFIED POSTPROCEDURAL STATES; Z95.3 - PRESENCE OF XENOGENIC HEART VALVE Assessment/Plan 02 SUPPORT DIURES WITH LASIX IV DAILY [facility] EVAL OOB TO CHAIR [facility] B12 IM
[2017-06-21] MEDS: CYANOCOBALAMIN (VITAMIN B-12) 1000 MCG/1 ML VIAL IM SCH (18:04)
[2017-06-21] MEDS: AMINO ACIDS/PROTEIN HYDROLYS 30 ML LIQUID.PKT PO SCH (18:04)
[2017-06-21] MEDS: ATORVASTATIN CA 20 MG TABLET (FP) PO SCH (22:16)
[2017-06-22] MEDS: FUROSEMIDE 40 MG/4 ML INJECTABLE VIAL IVPUSH SCH ×2 (05:59→13:43)
[2017-06-22] MEDS: DOCUSATE SODIUM 100 MG CAPSULE (FP) PO SCH ×3 (05:59→22:16)
[2017-06-22 06:06] LABS: SERUM IRON SATURATION 16 % (15-55); TOTAL IRON BINDING CAPACITY 266 ug/dL (250-450); UIBC 224 ug/dL (111-343)
[2017-06-22 06:16] LABS: BASO % 0.1 % (0-2.0); EOS % 0.1 % (0-4.5); HEMATOCRIT 29.5 % (35.4-49); HEMOGLOBIN 9.9 GM/dL (11.7-16.9); MCHC 33.5 g/dl (32.0-35.9); MEAN CELL VOLUME 86.6 fl (80-96); MEAN PLT VOLUME 8.2 fl (7.5-11.1); MONO % 4.7 % (3.8-10.2); NEUT % 91.1 % (42.8-82.8); PLATELET COUNT 162 K/MM3 (134-434); RBC 3.41 M/mm3 (4.00-5.60); RDW 18.5 % (11.9-15.9)
[2017-06-22 06:45] LABS: ANION GAP 8 (8-16); BLOOD UREA NITROGEN 62 mg/dL (7-18); CALCIUM 8.9 mg/dL (8.5-10.1); CHLORIDE 92 mmol/L (98-107); CO2 38 mmol/L (21-32); CREATININE 1.7 mg/dL (0.7-1.3); GLUCOSE,RANDOM 130 mg/dL (74-106); MAGNESIUM 2.3 mg/dL (1.8-2.4); PHOSPHOROUS 3.6 mg/dL (2.5-4.9); POTASSIUM 3.2 mmol/L (3.5-5.1); SODIUM 138 mmol/L (136-145)
[2017-06-22] MEDS: ALBUTEROL SO4 2.5/IPRATROPIUM 0.5 INH SOL 3 ML VIAL.NEB. NEB SCH ×3 (07:20→16:35)
--- NOTE | 2017-06-22 08:10 | PN ---
Progress Note, Physician Chief Complaint: sob History of Present Illness: sob feels better. cough is less too. no cp, leg swelling ex cigs - Current Medication List Current Medications: Active Medications Albuterol/Ipratropium (Duoneb -) 1 amp NEB RQID [facility] Last Admin: 06/21/17 20:50 Dose: 1 amp Amino Acids (Prosource No Carb Liquid Pkt) 30 ml PO BID@0800,1730 [facility] Last Admin: 06/21/17 18:04 Dose: 30 ml Amlodipine Besylate (Norvasc -) 5 mg PO DAILY [facility] Last Admin: 06/21/17 09:38 Dose: 5 mg Ascorbic Acid (Vitamin C -) 500 mg PO DAILY [facility] Last Admin: 06/21/17 09:35 Dose: 500 mg Atenolol (Tenormin -) 25 mg PO BID [facility] Last Admin: 06/21/17 22:16 Dose: 25 mg Atorvastatin Calcium (Lipitor -) 20 mg PO HS [facility] Last Admin: 06/21/17 22:16 Dose: 20 mg Budesonide/Formoterol Fumarate (Symbicort 160/4.5mcg -) 2 puff IH BID [facility] Last Admin: 06/21/17 22:00 Dose: 2 puff Cefuroxime Axetil (Ceftin -) 500 mg PO BID [facility] Last Admin: 06/21/17 22:17 Dose: 500 mg Cholecalciferol (Vitamin D3 -) 2,000 unit PO DAILY [facility] Last Admin: 06/21/17 09:34 Dose: 2,000 unit Cyanocobalamin (Vitamin B12 Injection -) 1,000 mcg IM DAILY [facility] Last Admin: 06/21/17 18:04 Dose: 1,000 mcg Docusate Sodium (Colace -) 100 mg PO TID [facility] Last Admin: 06/22/17 05:59 Dose: 100 mg Furosemide (Lasix Injection -) 80 mg IVPUSH BIDLASIX [facility] Last Admin: 06/22/17 05:59 Dose: 80 mg Guaifenesin (Diabetic Tussin Dm -) 10 ml PO Q6H PRN PRN Reason: COUGH Last Admin: 06/18/17 21:38 Dose: 10 ml Hydralazine HCl (Apresoline -) 25 mg PO BID [facility] Last Admin: 06/21/17 22:16 Dose: 25 mg Losartan Potassium (Cozaar -) 50 mg PO DAILY [facility] Last Admin: 06/21/17 09:35 Dose: 50 mg Methylprednisolone Sodium Succinate (Solu-Medrol -) 40 mg IVPUSH Q12H [facility] Last Admin: 06/21/17 22:16 Dose: 40 mg Potassium Chloride (K-Dur -) 20 meq PO BID [facility] Last Admin: 06/21/17 22:16 Dose: 20 meq Terazosin HCl (Hytrin -) 2 mg PO DAILY [facility] Last Admin: 06/21/17 09:38 Dose: 2 mg - Objective Vital Signs: Vital Signs Temperature 98.4 F 06/22/17 05:54 Pulse Rate 81 06/22/17 05:54 Respiratory Rate 22 06/22/17 05:54 Blood Pressure 160/95 06/22/17 05:54 O2 Sat by Pulse Oximetry (%) 95 06/21/17 21:00 Constitutional: Yes: No Distress, Calm Eyes: No: Sclera Icterus HENT: No: Nasal Congestion Cardiovascular: Yes: Pulse Irregular, S1, S2, Other (PMI non diplaced). No: JVD (in chair), Gallop, Murmur Respiratory: Yes: CTA Bilaterally (decr sounds diffusely), Wheezes (faint). No : Accessory Muscle Use, Rales Gastrointestinal: Yes: Normal Bowel Sounds, Soft. No: Tenderness Musculoskeletal: Yes: Other (No kyphosis) Extremities: No: Cold Edema: No Integumentary: No: Jaundice Neurological: Yes: Alert, Oriented (x3) Psychiatric: No: Agitated Labs: CBC, BMP 06/22/17 05:30 06/22/17 05:30 INR, PTT INR 3.13 (0.82-1.09) H 06/21/17 13:50 - ....Imaging EKG: Other (tele: afib, good HRs) Assessment/Plan EKG: afib,rate controlled, nl qtc, no ischemic changes cxr: pna echo 05/2017: mod lve, nl lvef, rv tds, sev ricardo, mild-mod mr, sev tr, sev phtn, no AI/ echo 09/2015: nl lv/rv, mild lae, nl bio avr, mild tr, mild-mod phtn carotids 12/2015: jess >70% (same location as prior stenosis seen 09/2014), no sig stenosis on left cta 2006: patent knowles/shaggy, occluded svg to OM Mibi 2011 showed only possible minimal inferolateral ischemia abd us 01/2016: 4.8 cm AAA a/p: 86 m hx pafib (on coumadin), cad s/p inferior [place] 1997, s/p cabg x3 1983 and 1997, bio avr (1983 and 1997), hld, htn, tia, s/p right cea, 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 sob, a.e. copd/respiratory infection, acute diast chf, severe pulm HTN: -no s/sx of ACS. ce's neg, ecg w/o ischemic changes -BNP 5K (prior range 1K-5K), however decr GFR confounds -pulm pressure up significantly vs prior echo--? due to component of volume excess/high left sided filling pressures -cont tx per pulm for a.e. copd and PNA/bronchitis -CT chest images reviewed (06/17): small R effusion -2/: suspect ongoing component of HFpEF here, JVD likely. cont lasix 40 iv bid. creat stable at baseline, bun rising ? steroids effect. insert fox to monitor diuresis. -06/21: fox in, 2800 cc UOP yest. remains with probably JVD (to jaw). renal fxn stable (actually improving today)--incr lasix 40 iv bid to 80 iv bid. -2: UOP 4L, labs stable. cont lasix 80 iv bid today. -(note: pt was recently volume up as outpt, per d/w dr arias--given lasix 80 bid plus metolazone but became dizzy with syncope on this) Pafib (on coumadin): - Rate controlled on BB. - AC with coumadin. Dosing per inr. cad s/p inferior [place] 1997, s/p cabg x3 1983 and 1997: -stable, no angina, nl lvef -cont medical management s/p bio avr - nl function on 06/2016 echo - nl fcn on echo here CKD: - baseline creatinine on prior admits ranges 1.5-2.0 - creat stable here hld: -cont statin htn: - bp moderately elevated here - cont current meds, added back hydralazine 25mg bid - observe bp trend, consider incr hydral dose pad, s/p cea, s/p le bypass/stenting: - Claudication is stable. Pt has been evaluated by several vascular surgeons in the past and his le dz is deemed non revascularizable. Recent carotid US shows stable disease, no new sxs. Continue current cardiac meds. AAA: - Has been stable on serial non con chest/abd ct's over the past years. Has seen vascular in past and they felt he is not a surgical candidate due to high risk. - Continue bb, statin.
[2017-06-22] MEDS: AMINO ACIDS/PROTEIN HYDROLYS 30 ML LIQUID.PKT PO SCH ×2 (09:36→17:41)
[2017-06-22] MEDS: CYANOCOBALAMIN (VITAMIN B-12) 1000 MCG/1 ML VIAL IM SCH (09:37)
[2017-06-22] MEDS: methylPREDNISolone NA SUCC 40 MG/1 ML VIAL IVPUSH SCH ×2 (09:37→22:16)
[2017-06-22] MEDS: CEFUROXIME AXETIL 500 MG TABLET PO SCH ×2 (09:38→22:18)
[2017-06-22] MEDS: CHOLECALCIFEROL (VITAMIN D3) 1,000 UNIT TABLET (FP) PO SCH (09:38)
[2017-06-22] MEDS: hydrALAZINE HCL 25 MG TABLET (FP) PO SCH ×2 (09:38→22:16)
[2017-06-22] MEDS: POTASSIUM CHLORIDE TABS 20 MEQ TABLET.ER (FP) PO SCH ×2 (09:38→22:16)
[2017-06-22] MEDS: LOSARTAN POTASSIUM 50 MG TABLET (FP) PO SCH (09:38)
[2017-06-22] MEDS: ATENOLOL 25 MG TABLET (FP) PO SCH ×2 (09:38→22:17)
[2017-06-22] MEDS: TERAZOSIN HCL 1 MG CAPSULE PO SCH (09:38)
[2017-06-22] MEDS: ASCORBIC ACID 500 MG TABLET (FP) PO SCH (09:38)
[2017-06-22] MEDS: amLODIPine BESYLATE 5 MG TABLET (FP) PO SCH (09:39)
[2017-06-22] MEDS: BUDESONIDE/FORMETEROL FUMARATE 160/4.5 mcg INHALER IH SCH ×2 (09:39→22:16)
--- NOTE | 2017-06-22 09:50 | PN ---
Progress Note, Physician Chief Complaint: sitting in chair feeling better lost 17 lbs in water weight no cp says breating better - Current Medication List Current Medications: Active Medications Albuterol/Ipratropium (Duoneb -) 1 amp NEB RQID [facility] Last Admin: 06/22/17 07:20 Dose: 1 amp Amino Acids (Prosource No Carb Liquid Pkt) 30 ml PO BID@0800,1730 [facility] Last Admin: 06/22/17 09:36 Dose: 30 ml Amlodipine Besylate (Norvasc -) 5 mg PO DAILY [facility] Last Admin: 06/22/17 09:39 Dose: 5 mg Ascorbic Acid (Vitamin C -) 500 mg PO DAILY [facility] Last Admin: 06/22/17 09:38 Dose: 500 mg Atenolol (Tenormin -) 25 mg PO BID [facility] Last Admin: 06/22/17 09:38 Dose: 25 mg Atorvastatin Calcium (Lipitor -) 20 mg PO HS [facility] Last Admin: 06/21/17 22:16 Dose: 20 mg Budesonide/Formoterol Fumarate (Symbicort 160/4.5mcg -) 2 puff IH BID [facility] Last Admin: 06/22/17 09:39 Dose: 2 puff Cefuroxime Axetil (Ceftin -) 500 mg PO BID [facility] Last Admin: 06/22/17 09:38 Dose: 500 mg Cholecalciferol (Vitamin D3 -) 2,000 unit PO DAILY [facility] Last Admin: 06/22/17 09:38 Dose: 2,000 unit Cyanocobalamin (Vitamin B12 Injection -) 1,000 mcg IM DAILY [facility] Last Admin: 06/22/17 09:37 Dose: 1,000 mcg Docusate Sodium (Colace -) 100 mg PO TID [facility] Last Admin: 06/22/17 05:59 Dose: 100 mg Furosemide (Lasix Injection -) 80 mg IVPUSH BIDLASIX [facility] Last Admin: 06/22/17 05:59 Dose: 80 mg Guaifenesin (Diabetic Tussin Dm -) 10 ml PO Q6H PRN PRN Reason: COUGH Last Admin: 06/18/17 21:38 Dose: 10 ml Hydralazine HCl (Apresoline -) 25 mg PO BID [facility] Last Admin: 06/22/17 09:38 Dose: 25 mg Losartan Potassium (Cozaar -) 50 mg PO DAILY [facility] Last Admin: 06/22/17 09:38 Dose: 50 mg Methylprednisolone Sodium Succinate (Solu-Medrol -) 40 mg IVPUSH Q12H [facility] Last Admin: 06/22/17 09:37 Dose: 40 mg Potassium Chloride (K-Dur -) 20 meq PO BID [facility] Last Admin: 06/22/17 09:38 Dose: 20 meq Terazosin HCl (Hytrin -) 2 mg PO DAILY [facility] Last Admin: 06/22/17 09:38 Dose: 2 mg - Objective Vital Signs: Vital Signs Temperature 98.4 F 06/22/17 05:54 Pulse Rate 85 06/22/17 08:13 Respiratory Rate 21 06/22/17 08:13 Blood Pressure 160/95 06/22/17 08:13 O2 Sat by Pulse Oximetry (%) 95 06/21/17 21:00 Constitutional: Yes: Calm Cardiovascular: Yes: Pulse Irregular, S1, S2 Respiratory: Yes: CTA Bilaterally, Rhonchi (scattered) Gastrointestinal: Yes: Normal Bowel Sounds, Soft Edema: Yes (improving) Neurological: Yes: Alert, Oriented Labs: CBC, BMP 06/22/17 05:30 06/22/17 05:30 INR, PTT INR 3.13 (0.82-1.09) H 06/21/17 13:50 Problem List - Problems (1) Acute diastolic (congestive) heart failure Assessment/Plan: iv lasix and potassium repleted will recheck again weight loss noted fox in place Code(s): I50.31 - ACUTE DIASTOLIC (CONGESTIVE) HEART FAILURE (2) Atrial fibrillation Assessment/Plan: BB check INR today Code(s): I48.91 - UNSPECIFIED ATRIAL FIBRILLATION Qualifiers: Atrial fibrillation type: chronic Qualified Code(s): I48.2 - Chronic atrial fibrillation (3) COPD (chronic obstructive pulmonary disease) Assessment/Plan: bronchodilators and iv steroids taper to q12 Code(s): J44.9 - CHRONIC OBSTRUCTIVE PULMONARY DISEASE, UNSPECIFIED (4) History of aortic valve replacement with bioprosthetic valve Code(s): Z98.890 - OTHER SPECIFIED POSTPROCEDURAL STATES; Z95.3 - PRESENCE OF XENOGENIC HEART VALVE (5) Pneumonia Assessment/Plan: ceftin - last day today Code(s): J18.9 - PNEUMONIA, UNSPECIFIED ORGANISM (6) Anemia Assessment/Plan: vitamin B12 injection last night check level Code(s): D64.9 - ANEMIA, UNSPECIFIED Qualifiers: Anemia type: B12 deficiency
[2017-06-22 10:57] LABS: INR 2.27 (0.82-1.09); PROTHROMBIN TIME (PATIENT) 25.7 SEC (9.98-11.88)
[2017-06-22] MEDS ORDERED: POTASSIUM CHLORIDE TABS 20 MEQ TABLET.ER (FP) PO ONE (12:00)
[2017-06-22 13:55] LABS: ANION GAP 11 (8-16); BLOOD UREA NITROGEN 62 mg/dL (7-18); CHLORIDE 88 mmol/L (98-107); CO2 37 mmol/L (21-32); CREATININE 1.7 mg/dL (0.7-1.3); GLUCOSE,RANDOM 134 mg/dL (74-106); SODIUM 136 mmol/L (136-145)
--- NOTE | 2017-06-22 14:35 | PN ---
Progress Note (short form) - Note Progress Note: Feels overall better. Continued weight loss due to diuresis. No CP or SOB. Intake & Output 06/19/17 06/20/17 06/21/17 06/22/17 23:59 23:59 23:59 23:59 Intake Total 1100 300 100 100 Output Total 2800 4150 3750 Balance 1100 2500 -4050 -3650 Weight 181 lb 183 lb 6.793 oz 185 lb 6 oz 169 lb 12.8 oz Last Vital Signs Temp Pulse Resp BP Pulse Ox 98.2 F 86 21 138/87 99 06/22/17 14:04 06/22/17 14:04 06/22/17 14:04 06/22/17 14:04 06/22/17 09:00 Active Medications Albuterol/Ipratropium (Duoneb -) 1 amp NEB RQID [facility] Last Admin: 06/22/17 11:47 Dose: 1 amp Amino Acids (Prosource No Carb Liquid Pkt) 30 ml PO BID@0800,1730 [facility] Last Admin: 06/22/17 09:36 Dose: 30 ml Amlodipine Besylate (Norvasc -) 5 mg PO DAILY [facility] Last Admin: 06/22/17 09:39 Dose: 5 mg Ascorbic Acid (Vitamin C -) 500 mg PO DAILY [facility] Last Admin: 06/22/17 09:38 Dose: 500 mg Atenolol (Tenormin -) 25 mg PO BID [facility] Last Admin: 06/22/17 09:38 Dose: 25 mg Atorvastatin Calcium (Lipitor -) 20 mg PO [facility] Last Admin: 06/21/17 22:16 Dose: 20 mg Budesonide/Formoterol Fumarate (Symbicort 160/4.5mcg -) 2 puff IH BID [facility] Last Admin: 06/22/17 09:39 Dose: 2 puff Cefuroxime Axetil (Ceftin -) 500 mg PO BID [facility] Last Admin: 06/22/17 09:38 Dose: 500 mg Cholecalciferol (Vitamin D3 -) 2,000 unit PO DAILY [facility] Last Admin: 06/22/17 09:38 Dose: 2,000 unit Cyanocobalamin (Vitamin B12 Injection -) 1,000 mcg IM DAILY [facility] Last Admin: 06/22/17 09:37 Dose: 1,000 mcg Docusate Sodium (Colace -) 100 mg PO TID [facility] Last Admin: 06/22/17 13:43 Dose: 100 mg Furosemide (Lasix Injection -) 80 mg IVPUSH BIDLASIX [facility] Last Admin: 06/22/17 13:43 Dose: 80 mg Guaifenesin (Diabetic Tussin Dm -) 10 ml PO Q6H PRN PRN Reason: COUGH Last Admin: 06/18/17 21:38 Dose: 10 ml Hydralazine HCl (Apresoline -) 25 mg PO BID [facility] Last Admin: 06/22/17 09:38 Dose: 25 mg Losartan Potassium (Cozaar -) 50 mg PO DAILY [facility] Last Admin: 06/22/17 09:38 Dose: 50 mg Methylprednisolone Sodium Succinate (Solu-Medrol -) 40 mg IVPUSH Q12H [facility] Last Admin: 06/22/17 09:37 Dose: 40 mg Potassium Chloride (K-Dur -) 20 meq PO BID [facility] Last Admin: 06/22/17 09:38 Dose: 20 meq Terazosin HCl (Hytrin -) 2 mg PO DAILY [facility] Last Admin: 06/22/17 09:38 Dose: 2 mg Gen: NAD Heart: RRR Lung: distant breath sounds, basilar rhonchi Abd: soft, nontender Ext: + edema Laboratory Results - last 24 hr 06/19/17 06/20/17 06/20/17 18:34 10:45 16:12 WBC RBC Hgb Hct MCV MCH MCHC RDW Plt Count MPV Neutrophils % Lymphocytes % Monocytes % Eosinophils % Basophils % PT with INR INR Sodium Potassium Chloride Carbon Dioxide Anion Gap BUN Creatinine POC Glucometer 168.73016 129.08807 149.40448 Random Glucose Calcium Phosphorus Magnesium Iron TIBC Iron Saturation Vitamin B12 06/20/17 06/21/17 06/22/17 22:34 11:00 05:30 WBC 7.0 D RBC 3.41 L Hgb 9.9 L D Hct 29.5 L MCV 86.6 MCH 29.0 MCHC 33.5 RDW 18.5 H Plt Count 162 MPV 8.2 Neutrophils % 91.1 H Lymphocytes % 4.0 L D Monocytes % 4.7 Eosinophils % 0.1 Basophils % 0.1 PT with INR INR Sodium Potassium Chloride Carbon Dioxide Anion Gap BUN Creatinine POC Glucometer 162.00781 Random Glucose Calcium Phosphorus Magnesium Iron 42 TIBC 266 Iron Saturation 16 Vitamin B12 06/22/17 06/22/17 06/22/17 05:30 05:30 10:29 WBC RBC Hgb Hct MCV MCH MCHC RDW Plt Count MPV Neutrophils % Lymphocytes % Monocytes % Eosinophils % Basophils % PT with INR 25.70 H INR 2.27 H Sodium 138 Potassium 3.2 L Chloride 92 L Carbon Dioxide 38 H Anion Gap 8 BUN 62 H Creatinine 1.7 H POC Glucometer Random Glucose 130 H D Calcium 8.9 Phosphorus 3.6 Magnesium 2.3 Iron TIBC Iron Saturation Vitamin B12 73884 H Cancelled 06/22/17 06/22/17 10:51 11:26 WBC RBC Hgb Hct MCV MCH MCHC RDW Plt Count MPV Neutrophils % Lymphocytes % Monocytes % Eosinophils % Basophils % PT with INR INR Sodium 136 Potassium 3.0 L Chloride 88 L Carbon Dioxide 37 H Anion Gap 11 BUN 62 H Creatinine 1.7 H POC Glucometer 139 Random Glucose 134 H Calcium 9.0 Phosphorus Magnesium Iron TIBC Iron Saturation Vitamin B12 IMP: Pneumonia Acute COPD Exacerbation Chronic Hypoxic Respiratory Failure Acute Diastolic Heart Failure CAD s/p CABG s/p bio AVR Pulmonary HTN Paroxysmal Atrial Fibrillation CKD PAD h/o DVT HTN - Ceftin - continue lasix, zaroxolyn - monitor urine output, creatinine - Will change to Prednisone in AM if he remains stable - inhaled bronchodilators - O2 to keep SpO2 >90% - rate control - AC Dr Johnson
[2017-06-22] MEDS ORDERED: IRON SUCROSE INJECTION 100 MG in SODIUM CHLORIDE 95 ML IVPB ONE (16:07)
--- NOTE | 2017-06-22 16:07 | PN ---
Progress Note (short form) - Note Progress Note: Renal follow up for CKD with volume overload Pt seen and examined in Tele feels better sob is improved good urine output on Lasix and Metolazone Vital Signs Temperature 98.2 F 06/22/17 14:04 Pulse Rate 86 06/22/17 14:04 Respiratory Rate 21 06/22/17 14:04 Blood Pressure 138/87 06/22/17 14:04 O2 Sat by Pulse Oximetry (%) 99 06/22/17 09:00 Intake & Output 06/19/17 06/20/17 06/21/17 06/22/17 23:59 23:59 23:59 23:59 Intake Total 1100 300 100 100 Output Total 2800 4150 3750 Balance 1100 -2500 -4050 -3650 Weight 82.1 kg 83.2 kg 84.085 kg 77.02 kg NAD RRR CTA trace LE edema Russo in place with yellow urine CBC, BMP 06/22/17 05:30 06/22/17 11:26 Current Medications Albuterol/Ipratropium (Duoneb -) 1 amp NEB RQID [facility] Last Admin: 06/22/17 11:47 Dose: 1 amp Amino Acids (Prosource No Carb Liquid Pkt) 30 ml PO BID@0800,1730 [facility] Last Admin: 06/22/17 09:36 Dose: 30 ml Amlodipine Besylate (Norvasc -) 5 mg PO DAILY [facility] Last Admin: 06/22/17 09:39 Dose: 5 mg Ascorbic Acid (Vitamin C -) 500 mg PO DAILY [facility] Last Admin: 06/22/17 09:38 Dose: 500 mg Atenolol (Tenormin -) 25 mg PO BID [facility] Last Admin: 06/22/17 09:38 Dose: 25 mg Atorvastatin Calcium (Lipitor -) 20 mg PO HS [facility] Last Admin: 06/21/17 22:16 Dose: 20 mg Budesonide/Formoterol Fumarate (Symbicort 160/4.5mcg -) 2 puff IH BID [facility] Last Admin: 06/22/17 09:39 Dose: 2 puff Cefuroxime Axetil (Ceftin -) 500 mg PO BID [facility] Last Admin: 06/22/17 09:38 Dose: 500 mg Cholecalciferol (Vitamin D3 -) 2,000 unit PO DAILY [facility] Last Admin: 06/22/17 09:38 Dose: 2,000 unit Cyanocobalamin (Vitamin B12 Injection -) 1,000 mcg IM DAILY [facility] Last Admin: 06/22/17 09:37 Dose: 1,000 mcg Docusate Sodium (Colace -) 100 mg PO TID [facility] Last Admin: 06/22/17 13:43 Dose: 100 mg Furosemide (Lasix Injection -) 80 mg IVPUSH BIDLASIX [facility] Last Admin: 06/22/17 13:43 Dose: 80 mg Guaifenesin (Diabetic Tussin Dm -) 10 ml PO Q6H PRN PRN Reason: COUGH Last Admin: 06/18/17 21:38 Dose: 10 ml Hydralazine HCl (Apresoline -) 25 mg PO BID [facility] Last Admin: 06/22/17 09:38 Dose: 25 mg Losartan Potassium (Cozaar -) 50 mg PO DAILY [facility] Last Admin: 06/22/17 09:38 Dose: 50 mg Methylprednisolone Sodium Succinate (Solu-Medrol -) 40 mg IVPUSH Q12H [facility] Last Admin: 06/22/17 09:37 Dose: 40 mg Potassium Chloride (K-Dur -) 20 meq PO BID [facility] Last Admin: 06/22/17 09:38 Dose: 20 meq Terazosin HCl (Hytrin -) 2 mg PO DAILY [facility] Last Admin: 06/22/17 09:38 Dose: 2 mg 86 year old gentleman with PMhx of CHF, CKD Stage 3 w/o proteinuria, Hypertension, BPH, COPD who presented to the ED with complaints of SOB, LE swelling and reported 10 lb wegiht gain over 1 week. #CKD Stage 3 with volume overload Renal function stable at this time continue lasix, dose increased to 80mg IV BID per cardiology will hold metolazone today as pt with significant weight loss in last 24 hour #CHF continue diuresis with IV Lasis Cardiology following #Hx of COPD on IV steroids Pulmonary following #Normocytic Anemia iron saturation is 16% will given Venofer 100mg IV x 1 Ko Toth DO
[2017-06-22] MEDS: ATORVASTATIN CA 20 MG TABLET (FP) PO SCH (22:15)
[2017-06-23] MEDS: DOCUSATE SODIUM 100 MG CAPSULE (FP) PO SCH ×3 (05:18→22:00)
[2017-06-23] MEDS: FUROSEMIDE 40 MG/4 ML INJECTABLE VIAL IVPUSH SCH (05:18)
[2017-06-23 06:07] LABS: BASO % 0.1 % (0-2.0); EOS % 0.1 % (0-4.5); HEMATOCRIT 30.9 % (35.4-49); HEMOGLOBIN 10.2 GM/dL (11.7-16.9); LYMPH % 3.8 % (8-40); MCH 28.8 pg (25.7-33.7); MCHC 33.1 g/dl (32.0-35.9); MEAN CELL VOLUME 87.1 fl (80-96); MEAN PLT VOLUME 8.5 fl (7.5-11.1); PLATELET COUNT 158 K/MM3 (134-434); RBC 3.55 M/mm3 (4.00-5.60); RDW 19.1 % (11.9-15.9); WHITE BLOOD COUNT 8.2 K/mm3 (4.0-10.0)
[2017-06-23 06:29] LABS: BLOOD UREA NITROGEN 80 mg/dL (7-18); CHLORIDE 90 mmol/L (98-107); GLUCOSE,RANDOM 156 mg/dL (74-106); POTASSIUM 3.1 mmol/L (3.5-5.1); SODIUM 136 mmol/L (136-145)
[2017-06-23 06:32] LABS: ANION GAP 9 (8-16); CALCIUM 8.5 mg/dL (8.5-10.1); CO2 37 mmol/L (21-32); MAGNESIUM 2.1 mg/dL (1.8-2.4)
[2017-06-23] MEDS ORDERED: PT OWN MED DRAWER 7, Y5N ONE ×2 (07:40→09:42)
--- NOTE | 2017-06-23 07:54 | PN ---
Progress Note, Physician History of Present Illness: feels better less sob no cp - Current Medication List Current Medications: Active Medications Albuterol/Ipratropium (Duoneb -) 1 amp NEB Q6H PRN PRN Reason: SHORT OF BREATH/WHEEZING Amino Acids (Prosource No Carb Liquid Pkt) 30 ml PO BID@0800,1730 [facility] Last Admin: 06/22/17 17:41 Dose: 30 ml Amlodipine Besylate (Norvasc -) 5 mg PO DAILY [facility] Last Admin: 06/22/17 09:39 Dose: 5 mg Ascorbic Acid (Vitamin C -) 500 mg PO DAILY [facility] Last Admin: 06/22/17 09:38 Dose: 500 mg Atenolol (Tenormin -) 25 mg PO BID [facility] Last Admin: 06/22/17 22:17 Dose: 25 mg Atorvastatin Calcium (Lipitor -) 20 mg PO HS [facility] Last Admin: 06/22/17 22:15 Dose: 20 mg Budesonide/Formoterol Fumarate (Symbicort 160/4.5mcg -) 2 puff IH BID [facility] Last Admin: 06/22/17 22:16 Dose: 2 puff Cefuroxime Axetil (Ceftin -) 500 mg PO BID [facility] Last Admin: 06/22/17 22:18 Dose: 500 mg Cholecalciferol (Vitamin D3 -) 2,000 unit PO DAILY [facility] Last Admin: 06/22/17 09:38 Dose: 2,000 unit Cyanocobalamin (Vitamin B12 Injection -) 1,000 mcg IM DAILY [facility] Last Admin: 06/22/17 09:37 Dose: 1,000 mcg Docusate Sodium (Colace -) 100 mg PO TID [facility] Last Admin: 06/23/17 05:18 Dose: 100 mg Guaifenesin (Diabetic Tussin Dm -) 10 ml PO Q6H PRN PRN Reason: COUGH Last Admin: 06/18/17 21:38 Dose: 10 ml Hydralazine HCl (Apresoline -) 25 mg PO BID [facility] Last Admin: 06/22/17 22:16 Dose: 25 mg Losartan Potassium (Cozaar -) 50 mg PO DAILY [facility] Last Admin: 06/22/17 09:38 Dose: 50 mg Methylprednisolone Sodium Succinate (Solu-Medrol -) 40 mg IVPUSH Q12H [facility] Last Admin: 06/22/17 22:16 Dose: 40 mg Potassium Chloride (K-Dur -) 20 meq PO BID [facility] Last Admin: 06/22/17 22:16 Dose: 20 meq Terazosin HCl (Hytrin -) 2 mg PO DAILY [facility] Last Admin: 06/22/17 09:38 Dose: 2 mg - Objective Vital Signs: Vital Signs Temperature 98.3 F 06/23/17 05:41 Pulse Rate 87 06/23/17 05:41 Respiratory Rate 20 06/23/17 02:00 Blood Pressure 135/87 06/23/17 05:41 O2 Sat by Pulse Oximetry (%) 99 06/22/17 20:09 Cardiovascular: Yes: S1, S2 Respiratory: Yes: Regular, CTA Bilaterally, On Nasal O2 Gastrointestinal: Yes: Normal Bowel Sounds, Soft Labs: CBC, BMP 06/23/17 05:25 06/23/17 05:25 INR, PTT INR 2.27 (0.82-1.09) H 06/22/17 10:29 Problem List - Problems (1) Pneumonia Code(s): J18.9 - PNEUMONIA, UNSPECIFIED ORGANISM (2) Chest pain Code(s): R07.9 - CHEST PAIN, UNSPECIFIED Qualifiers: Chest pain type: other chest pain Qualified Code(s): R07.89 - Other chest pain (3) Acute on chronic diastolic (congestive) heart failure Code(s): I50.33 - ACUTE ON CHRONIC DIASTOLIC (CONGESTIVE) HEART FAILURE (4) Congestive heart failure Code(s): I50.9 - HEART FAILURE, UNSPECIFIED Qualifiers: Congestive heart failure type: unspecified Congestive heart failure chronicity: acute Qualified Code(s): I50.9 - Heart failure, unspecified (5) Atrial fibrillation Code(s): I48.91 - UNSPECIFIED ATRIAL FIBRILLATION Qualifiers: Atrial fibrillation type: chronic Qualified Code(s): I48.2 - Chronic atrial fibrillation (6) Aortic aneurysm Code(s): I71.9 - AORTIC ANEURYSM OF UNSPECIFIED SITE, WITHOUT RUPTURE (7) Lung mass Code(s): R91.8 - OTHER NONSPECIFIC ABNORMAL FINDING OF LUNG FIELD Assessment/Plan - Problems (1) Acute diastolic (congestive) heart failure Assessment/Plan: iv lasix--to po today and potassium repleted will recheck again weight loss noted fox in place Code(s): I50.31 - ACUTE DIASTOLIC (CONGESTIVE) HEART FAILURE (2) Atrial fibrillation Assessment/Plan: BB check INR today Code(s): I48.91 - UNSPECIFIED ATRIAL FIBRILLATION Qualifiers: Atrial fibrillation type: chronic Qualified Code(s): I48.2 - Chronic atrial fibrillation (3) COPD (chronic obstructive pulmonary disease) Assessment/Plan: bronchodilators and iv steroids taper to q12 Code(s): J44.9 - CHRONIC OBSTRUCTIVE PULMONARY DISEASE, UNSPECIFIED (4) History of aortic valve replacement with bioprosthetic valve Code(s): Z98.890 - OTHER SPECIFIED POSTPROCEDURAL STATES; Z95.3 - PRESENCE OF XENOGENIC HEART VALVE (5) Pneumonia Assessment/Plan: ceftin - last day today Code(s): J18.9 - PNEUMONIA, UNSPECIFIED ORGANISM (6) Anemia Assessment/Plan: vitamin B12 injection last night check level Code(s): D64.9 - ANEMIA, UNSPECIFIED Qualifiers: Anemia type: B12 deficiency
[2017-06-23] MEDS: AMINO ACIDS/PROTEIN HYDROLYS 30 ML LIQUID.PKT PO SCH ×2 (07:55→17:04)
--- NOTE | 2017-06-23 09:06 | PN ---
Progress Note, Physician History of Present Illness: This is an 86 year old male with a significant past medical history of COPD ( 3LO2NC), CAD, CABG who presented to the ED with a few day history of increased shortness of breath. He also reports weight gain and decreased urine output. He denies eating or drinking salty food. He also reports a dry cough and chest pain with inspiration. He denies fever or chills. Pt developed episode of increased persistent CP just prior to my arrival. Pain 10/10, given NTG with reduction to 5/10, ECG repeated with new ST depressions. ER course was notable for: (1) trop neg x1 (2) BNP elevated (3) CXR with JAYESH PNA Recent Travel: pt denies PAST MEDICAL HISTORY: COPD (3L O2 via [place] at home), CHF, Afib, HTN, HLD, TIA, CAD, AL, anemia, DVT, CABG, valve replacement, severe PAD, AAA, CKD, BPH, HCV PAST SURGICAL HISTORY: 3vCABG 1983 bioprosthetic aortic valve 1983, 1997 R carotid endarterectomy B/L LE stenting and bypass Social History: Smoking: quit 45 years ago, 25 pack year history Alcohol: pt denies Drugs: pt denies feels better-less cough and less sob - Current Medication List Current Medications: Active Medications Albuterol/Ipratropium (Duoneb -) 1 amp NEB Q6H PRN PRN Reason: SHORT OF BREATH/WHEEZING Amino Acids (Prosource No Carb Liquid Pkt) 30 ml PO BID@0800,1730 [facility] Last Admin: 06/23/17 07:55 Dose: 30 ml Amlodipine Besylate (Norvasc -) 5 mg PO DAILY [facility] Last Admin: 06/22/17 09:39 Dose: 5 mg Ascorbic Acid (Vitamin C -) 500 mg PO DAILY [facility] Last Admin: 06/22/17 09:38 Dose: 500 mg Atenolol (Tenormin -) 25 mg PO BID [facility] Last Admin: 06/22/17 22:17 Dose: 25 mg Atorvastatin Calcium (Lipitor -) 20 mg PO HS [facility] Last Admin: 06/22/17 22:15 Dose: 20 mg Budesonide/Formoterol Fumarate (Symbicort 160/4.5mcg -) 2 puff IH BID [facility] Last Admin: 06/22/17 22:16 Dose: 2 puff Cefuroxime Axetil (Ceftin -) 500 mg PO BID [facility] Last Admin: 06/22/17 22:18 Dose: 500 mg Cholecalciferol (Vitamin D3 -) 2,000 unit PO DAILY [facility] Last Admin: 06/22/17 09:38 Dose: 2,000 unit Cyanocobalamin (Vitamin B12 Injection -) 1,000 mcg IM DAILY [facility] Last Admin: 06/22/17 09:37 Dose: 1,000 mcg Docusate Sodium (Colace -) 100 mg PO TID [facility] Last Admin: 06/23/17 05:18 Dose: 100 mg Furosemide (Lasix -) 80 mg PO BID@0600,1400 [facility] Guaifenesin (Diabetic Tussin Dm -) 10 ml PO Q6H PRN PRN Reason: COUGH Last Admin: 06/18/17 21:38 Dose: 10 ml Hydralazine HCl (Apresoline -) 25 mg PO BID [facility] Last Admin: 06/22/17 22:16 Dose: 25 mg Losartan Potassium (Cozaar -) 50 mg PO DAILY [facility] Last Admin: 06/22/17 09:38 Dose: 50 mg Methylprednisolone Sodium Succinate (Solu-Medrol -) 40 mg IVPUSH Q12H [facility] Last Admin: 06/22/17 22:16 Dose: 40 mg Potassium Chloride (K-Dur -) 20 meq PO BID [facility] Last Admin: 06/22/17 22:16 Dose: 20 meq Terazosin HCl (Hytrin -) 2 mg PO DAILY [facility] Last Admin: 06/22/17 09:38 Dose: 2 mg - Objective Vital Signs: Vital Signs Temperature 98.3 F 06/23/17 08:09 Pulse Rate 91 H 06/23/17 08:09 Respiratory Rate 20 06/23/17 08:12 Blood Pressure 162/92 06/23/17 08:09 O2 Sat by Pulse Oximetry (%) 99 06/23/17 08:12 Cardiovascular: Yes: S1, S2 Respiratory: Yes: Regular, CTA Bilaterally Gastrointestinal: Yes: Normal Bowel Sounds, Soft Labs: CBC, BMP 06/23/17 05:25 06/23/17 05:25 INR, PTT INR 2.27 (0.82-1.09) H 06/22/17 10:29 Problem List - Problems (1) Pneumonia Code(s): J18.9 - PNEUMONIA, UNSPECIFIED ORGANISM (2) Chest pain Code(s): R07.9 - CHEST PAIN, UNSPECIFIED Qualifiers: Chest pain type: other chest pain Qualified Code(s): R07.89 - Other chest pain (3) Acute on chronic diastolic (congestive) heart failure Code(s): I50.33 - ACUTE ON CHRONIC DIASTOLIC (CONGESTIVE) HEART FAILURE (4) Congestive heart failure Code(s): I50.9 - HEART FAILURE, UNSPECIFIED Qualifiers: Congestive heart failure type: unspecified Congestive heart failure chronicity: acute Qualified Code(s): I50.9 - Heart failure, unspecified (5) Atrial fibrillation Code(s): I48.91 - UNSPECIFIED ATRIAL FIBRILLATION Qualifiers: Atrial fibrillation type: chronic Qualified Code(s): I48.2 - Chronic atrial fibrillation (6) Aortic aneurysm Code(s): I71.9 - AORTIC ANEURYSM OF UNSPECIFIED SITE, WITHOUT RUPTURE (7) Lung mass Code(s): R91.8 - OTHER NONSPECIFIC ABNORMAL FINDING OF LUNG FIELD
[2017-06-23] MEDS: hydrALAZINE HCL 25 MG TABLET (FP) PO SCH ×2 (09:19→22:00)
[2017-06-23] MEDS: CHOLECALCIFEROL (VITAMIN D3) 1,000 UNIT TABLET (FP) PO SCH (09:19)
[2017-06-23] MEDS: LOSARTAN POTASSIUM 50 MG TABLET (FP) PO SCH (09:19)
[2017-06-23] MEDS: POTASSIUM CHLORIDE TABS 20 MEQ TABLET.ER (FP) PO SCH ×2 (09:20→22:00)
[2017-06-23] MEDS: ATENOLOL 25 MG TABLET (FP) PO SCH ×2 (09:22→22:01)
[2017-06-23] MEDS: amLODIPine BESYLATE 5 MG TABLET (FP) PO SCH (09:31)
[2017-06-23] MEDS: ASCORBIC ACID 500 MG TABLET (FP) PO SCH (09:31)
[2017-06-23] MEDS: CEFUROXIME AXETIL 500 MG TABLET PO SCH (09:32)
[2017-06-23] MEDS: CYANOCOBALAMIN (VITAMIN B-12) 1000 MCG/1 ML VIAL IM SCH (09:34)
[2017-06-23] MEDS: BUDESONIDE/FORMETEROL FUMARATE 160/4.5 mcg INHALER IH SCH ×2 (09:34→22:01)
[2017-06-23] MEDS: methylPREDNISolone NA SUCC 40 MG/1 ML VIAL IVPUSH SCH (09:34)
[2017-06-23] MEDS: TERAZOSIN HCL 1 MG CAPSULE PO SCH (09:43)
--- NOTE | 2017-06-23 11:37 | PN ---
Progress Note (short form) - Note Progress Note: Chief Complaint: sob History of Present Illness: transitioned to po lasix today. sob feels better. cough is less too. no cp, leg swelling ex cigs Current Medications Albuterol/Ipratropium (Duoneb -) 1 amp NEB Q6H PRN PRN Reason: SHORT OF BREATH/WHEEZING Amino Acids (Prosource No Carb Liquid Pkt) 30 ml PO BID@0800,1730 [facility] Last Admin: 06/23/17 07:55 Dose: 30 ml Amlodipine Besylate (Norvasc -) 5 mg PO DAILY [facility] Last Admin: 06/23/17 09:31 Dose: 5 mg Ascorbic Acid (Vitamin C -) 500 mg PO DAILY [facility] Last Admin: 06/23/17 09:31 Dose: 500 mg Atenolol (Tenormin -) 25 mg PO BID [facility] Last Admin: 06/23/17 09:22 Dose: 25 mg Atorvastatin Calcium (Lipitor -) 20 mg PO HS [facility] Last Admin: 06/22/17 22:15 Dose: 20 mg Budesonide/Formoterol Fumarate (Symbicort 160/4.5mcg -) 2 puff IH BID [facility] Last Admin: 06/23/17 09:34 Dose: 2 puff Cholecalciferol (Vitamin D3 -) 2,000 unit PO DAILY [facility] Last Admin: 06/23/17 09:19 Dose: 2,000 unit Cyanocobalamin (Vitamin B12 Injection -) 1,000 mcg IM DAILY [facility] Last Admin: 06/23/17 09:34 Dose: 1,000 mcg Docusate Sodium (Colace -) 100 mg PO TID [facility] Last Admin: 06/23/17 05:18 Dose: 100 mg Furosemide (Lasix -) 80 mg PO BID@0600,1400 [facility] Guaifenesin (Diabetic Tussin Dm -) 10 ml PO Q6H PRN PRN Reason: COUGH Last Admin: 06/18/17 21:38 Dose: 10 ml Hydralazine HCl (Apresoline -) 25 mg PO BID [facility] Last Admin: 06/23/17 09:19 Dose: 25 mg Losartan Potassium (Cozaar -) 50 mg PO DAILY [facility] Last Admin: 06/23/17 09:19 Dose: 50 mg Methylprednisolone Sodium Succinate (Solu-Medrol -) 40 mg IVPUSH Q12H [facility] Last Admin: 02/06/18 09:34 Dose: 40 mg Potassium Chloride (K-Dur -) 20 meq PO BID [facility] Last Admin: 06/23/17 09:20 Dose: 20 meq Potassium Chloride (K-Dur -) 20 meq PO ONCE ONE Stop: 06/23/17 11:35 Terazosin HCl (Hytrin -) 2 mg PO DAILY [facility] Last Admin: 06/23/17 09:43 Dose: 2 mg - Objective Vital Signs: Vital Signs - 24 hr 06/22/17 06/22/17 06/22/17 14:04 18:00 20:09 Temperature 98.2 F 98.2 F Pulse Rate 86 90 82 Respiratory 21 20 20 Rate Blood Pressure 138/87 131/72 131/72 O2 Sat by Pulse 99 Oximetry (%) 06/23/17 06/23/17 06/23/17 02:00 05:41 08:09 Temperature 98.3 F 98.3 F Pulse Rate 77 87 91 H Respiratory 20 Rate Blood Pressure 154/85 135/87 162/92 O2 Sat by Pulse Oximetry (%) 06/23/17 08:12 Temperature Pulse Rate Respiratory 20 Rate Blood Pressure O2 Sat by Pulse 99 Oximetry (%) Intake & Output 06/21/17 06/22/17 06/23/17 06/24/17 07:59 07:59 07:59 07:59 Intake Total 200 200 20 Output Total 4450 3750 3100 800 Balance -4250 -3550 -3080 -800 Weight 185 lb 6 oz 169 lb 12.8 oz 184 lb 14.4 oz Constitutional: Yes: No Distress, Calm Eyes: No: Sclera Icterus HENT: No: Nasal Congestion Cardiovascular: Yes: Pulse Irregular, S1, S2, Other (PMI non diplaced). No: JVD (in chair), Gallop, Murmur Respiratory: Yes: CTA Bilaterally (decr sounds diffusely), Wheezes (faint). No : Accessory Muscle Use, Rales Gastrointestinal: Yes: Normal Bowel Sounds, Soft. No: Tenderness Musculoskeletal: Yes: Other (No kyphosis) Extremities: No: Cold Edema: No Integumentary: No: Jaundice Neurological: Yes: Alert, Oriented (x3) Psychiatric: No: Agitated Labs: CBC, BMP 06/23/17 05:25 06/23/17 05:25 Laboratory Tests 07/14/16 06/22/17 06/22/17 11:15 10:29 11:26 INR 2.27 H ABG pO2 at Pt Temp 64.7 L ABG HCO3 29.2 H Oxygen Flow Rate 3 lpm Creatinine 1.7 H Magnesium 06/23/17 05:25 INR ABG pO2 at Pt Temp ABG HCO3 Oxygen Flow Rate Creatinine Magnesium 2.1 - ....Imaging EKG: Other (tele: afib, pvc's good HRs) Assessment/Plan EKG: afib,rate controlled, nl qtc, no ischemic changes cxr: pna echo 05/2017: mod lve, nl lvef, rv tds, sev ricardo, mild-mod mr, sev tr, sev phtn, no AI/ echo 09/2015: nl lv/rv, mild lae, nl bio avr, mild tr, mild-mod phtn carotids 12/2015: jess >70% (same location as prior stenosis seen 09/2014), no sig stenosis on left cta 2006: patent knowles/shaggy, occluded svg to OM Mibi 2011 showed only possible minimal inferolateral ischemia abd us 01/2016: 4.8 cm AAA a/p: 86 m hx pafib (on coumadin), cad s/p inferior [place] 1997, s/p cabg x3 1983 and 1997, bio avr (1983 and 1997), hld, htn, tia, s/p right cea, 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 sob, a.e. copd/respiratory infection, acute diast chf, severe pulm HTN: -no s/sx of ACS. ce's neg, ecg w/o ischemic changes -BNP 5K (prior range 1K-5K), however decr GFR confounds -pulm pressure up significantly vs prior echo--? due to component of volume excess/high left sided filling pressures -cont tx per pulm for a.e. copd and PNA/bronchitis -CT chest images reviewed (06/17): small R effusion -2/3: suspect ongoing component of HFpEF here, JVD likely. cont lasix 40 iv bid. creat stable at baseline, bun rising ? steroids effect. insert fox to monitor diuresis. -06/21: fox in, 2800 cc UOP yest. remains with probably JVD (to jaw). renal fxn stable (actually improving today)--incr lasix 40 iv bid to 80 iv bid. -06/22: UOP 4L, labs stable. cont lasix 80 iv bid today. -(note: pt was recently volume up as outpt, per d/w dr raias--given lasix 80 bid plus metolazone but became dizzy with syncope on this) - 06/23: Bun/cr worse today on lasix 80 IV bid --> team transitioned him to lasix 80 mg po bid today. Monitor volume status on po regimen. Pafib (on coumadin): - Rate controlled on BB. - AC with coumadin. Dosing per inr. cad s/p inferior [place] 1997, s/p cabg x3 1983 and 1997: -stable, no angina, nl lvef -cont medical management s/p bio avr - nl function on 06/2016 echo - nl fcn on echo here CKD: - baseline creatinine on prior admits ranges 1.5-2.0 - creat stable here hld: -cont statin htn: - bp moderately elevated here - cont current meds, added back hydralazine 25mg bid - observe bp trend, consider incr hydral dose pad, s/p cea, s/p le bypass/stenting: - Claudication is stable. Pt has been evaluated by several vascular surgeons in the past and his le dz is deemed non revascularizable. Recent carotid US shows stable disease, no new sxs. Continue current cardiac meds. AAA: - Has been stable on serial non con chest/abd ct's over the past years. Has seen vascular in past and they felt he is not a surgical candidate due to high risk. - Continue bb, statin.
[2017-06-23] MEDS ORDERED: POTASSIUM CHLORIDE TABS 20 MEQ TABLET.ER (FP) PO ONE (11:45)
--- NOTE | 2017-06-23 13:05 | PN ---
Progress Note (short form) - Note Progress Note: Feels overall better. No acute events overnight. No CP or SOB. Intake & Output 06/20/17 06/21/17 06/22/17 06/23/17 23:59 23:59 23:59 23:59 Intake Total 300 100 120 Output Total 2800 4150 4250 1800 Balance -2263 -6533 -7150 -0009 Weight 183 lb 6.793 oz 185 lb 6 oz 169 lb 12.8 oz 184 lb 14.4 oz Last Vital Signs Temp Pulse Resp BP Pulse Ox 98.3 F 91 H 20 162/92 99 06/23/17 08:09 06/23/17 08:09 06/23/17 08:12 06/23/17 08:09 06/23/17 08:12 Active Medications Albuterol/Ipratropium (Duoneb -) 1 amp NEB Q6H PRN PRN Reason: SHORT OF BREATH/WHEEZING Amino Acids (Prosource No Carb Liquid Pkt) 30 ml PO BID@0800,1730 [facility] Last Admin: 06/23/17 07:55 Dose: 30 ml Amlodipine Besylate (Norvasc -) 5 mg PO DAILY [facility] Last Admin: 06/23/17 09:31 Dose: 5 mg Ascorbic Acid (Vitamin C -) 500 mg PO DAILY [facility] Last Admin: 06/23/17 09:31 Dose: 500 mg Atenolol (Tenormin -) 25 mg PO BID [facility] Last Admin: 06/23/17 09:22 Dose: 25 mg Atorvastatin Calcium (Lipitor -) 20 mg PO [facility] Last Admin: 06/22/17 22:15 Dose: 20 mg Budesonide/Formoterol Fumarate (Symbicort 160/4.5mcg -) 2 puff IH BID [facility] Last Admin: 06/23/17 09:34 Dose: 2 puff Cholecalciferol (Vitamin D3 -) 2,000 unit PO DAILY [facility] Last Admin: 06/23/17 09:19 Dose: 2,000 unit Cyanocobalamin (Vitamin B12 Injection -) 1,000 mcg IM DAILY [facility] Last Admin: 06/23/17 09:34 Dose: 1,000 mcg Docusate Sodium (Colace -) 100 mg PO TID [facility] Last Admin: 06/23/17 05:18 Dose: 100 mg Furosemide (Lasix -) 80 mg PO BID@0600,1400 [facility] Guaifenesin (Diabetic Tussin Dm -) 10 ml PO Q6H PRN PRN Reason: COUGH Last Admin: 06/18/17 21:38 Dose: 10 ml Hydralazine HCl (Apresoline -) 25 mg PO BID [facility] Last Admin: 06/23/17 09:19 Dose: 25 mg Losartan Potassium (Cozaar -) 50 mg PO DAILY [facility] Last Admin: 06/23/17 09:19 Dose: 50 mg Methylprednisolone Sodium Succinate (Solu-Medrol -) 40 mg IVPUSH Q12H [facility] Last Admin: 06/23/17 09:34 Dose: 40 mg Potassium Chloride (K-Dur -) 20 meq PO BID [facility] Last Admin: 06/23/17 09:20 Dose: 20 meq Terazosin HCl (Hytrin -) 2 mg PO DAILY [facility] Last Admin: 06/23/17 09:43 Dose: 2 mg Gen: NAD Heart: RRR Lung: distant breath sounds, basilar rhonchi Abd: soft, nontender Ext: + edema Laboratory Results - last 24 hr 06/22/17 06/23/17 06/23/17 11:26 05:25 05:25 WBC 8.2 RBC 3.55 L Hgb 10.2 L Hct 30.9 L MCV 87.1 MCH 28.8 MCHC 33.1 RDW 19.1 H Plt Count 158 MPV 8.5 Neutrophils % 92.0 H Lymphocytes % 3.8 L Monocytes % 4.0 Eosinophils % 0.1 Basophils % 0.1 Sodium 136 136 Potassium 3.0 L 3.1 L Chloride 88 L 90 L Carbon Dioxide 37 H 37 H Anion Gap 11 9 BUN 62 H 80 H D Creatinine 1.7 H 2.0 H Random Glucose 134 H 156 H Calcium 9.0 8.5 Magnesium 2.1 IMP: Pneumonia Acute COPD Exacerbation Chronic Hypoxic Respiratory Failure Acute Diastolic Heart Failure CAD s/p CABG s/p bio AVR Pulmonary HTN Paroxysmal Atrial Fibrillation CKD PAD h/o DVT HTN - Ceftin - continue lasix, zaroxolyn - monitor urine output, creatinine - Will change to Prednisone - inhaled bronchodilators - O2 to keep SpO2 >90% - rate control - Dr Johnson
[2017-06-23] MEDS: FUROSEMIDE 40 MG TABLET (FP) PO SCH (13:08)
[2017-06-23] MEDS: ALBUTEROL SO4 2.5/IPRATROPIUM 0.5 INH SOL 3 ML VIAL.NEB. NEB PRN (20:30)
[2017-06-23] MEDS: ATORVASTATIN CA 20 MG TABLET (FP) PO SCH (22:01)
[2017-06-24] MEDS: DOCUSATE SODIUM 100 MG CAPSULE (FP) PO SCH ×3 (05:25→21:01)
[2017-06-24] MEDS: FUROSEMIDE 40 MG TABLET (FP) PO SCH ×2 (05:25→14:56)
[2017-06-24] MEDS: ALBUTEROL SO4 2.5/IPRATROPIUM 0.5 INH SOL 3 ML VIAL.NEB. NEB PRN ×2 (08:05→22:47)
[2017-06-24] MEDS: AMINO ACIDS/PROTEIN HYDROLYS 30 ML LIQUID.PKT PO SCH ×2 (09:35→17:51)
[2017-06-24] MEDS: TERAZOSIN HCL 1 MG CAPSULE PO SCH (09:35)
[2017-06-24] MEDS: LOSARTAN POTASSIUM 50 MG TABLET (FP) PO SCH (09:36)
[2017-06-24] MEDS: CYANOCOBALAMIN (VITAMIN B-12) 1000 MCG/1 ML VIAL IM SCH (09:36)
[2017-06-24] MEDS: amLODIPine BESYLATE 5 MG TABLET (FP) PO SCH (09:36)
[2017-06-24] MEDS: ASCORBIC ACID 500 MG TABLET (FP) PO SCH (09:36)
[2017-06-24] MEDS: ATENOLOL 25 MG TABLET (FP) PO SCH ×2 (09:36→21:01)
[2017-06-24] MEDS: CHOLECALCIFEROL (VITAMIN D3) 1,000 UNIT TABLET (FP) PO SCH (09:36)
[2017-06-24] MEDS: hydrALAZINE HCL 25 MG TABLET (FP) PO SCH ×2 (09:36→21:01)
[2017-06-24] MEDS: POTASSIUM CHLORIDE TABS 20 MEQ TABLET.ER (FP) PO SCH ×3 (09:36→21:01)
[2017-06-24] MEDS: BUDESONIDE/FORMETEROL FUMARATE 160/4.5 mcg INHALER IH SCH ×2 (09:38→21:02)
[2017-06-24] MEDS: predniSONE 20 MG TABLET (UD) PO SCH (09:40)
--- NOTE | 2017-06-24 10:02 | PN ---
Progress Note, Physician History of Present Illness: feels better less sob no cp - Current Medication List Current Medications: Active Medications Albuterol/Ipratropium (Duoneb -) 1 amp NEB Q6H PRN PRN Reason: SHORT OF BREATH/WHEEZING Last Admin: 06/24/17 08:05 Dose: 1 amp Amino Acids (Prosource No Carb Liquid Pkt) 30 ml PO BID@0800,1730 [facility] Last Admin: 06/24/17 09:35 Dose: 30 ml Amlodipine Besylate (Norvasc -) 5 mg PO DAILY [facility] Last Admin: 06/24/17 09:36 Dose: 5 mg Ascorbic Acid (Vitamin C -) 500 mg PO DAILY [facility] Last Admin: 06/24/17 09:36 Dose: 500 mg Atenolol (Tenormin -) 25 mg PO BID [facility] Last Admin: 06/24/17 09:36 Dose: 25 mg Atorvastatin Calcium (Lipitor -) 20 mg PO HS [facility] Last Admin: 06/23/17 22:01 Dose: 20 mg Budesonide/Formoterol Fumarate (Symbicort 160/4.5mcg -) 2 puff IH BID [facility] Last Admin: 06/24/17 09:38 Dose: 2 puff Cholecalciferol (Vitamin D3 -) 2,000 unit PO DAILY [facility] Last Admin: 06/24/17 09:36 Dose: 2,000 unit Cyanocobalamin (Vitamin B12 Injection -) 1,000 mcg IM DAILY [facility] Last Admin: 06/24/17 09:36 Dose: 1,000 mcg Docusate Sodium (Colace -) 100 mg PO TID [facility] Last Admin: 06/24/17 05:25 Dose: 100 mg Furosemide (Lasix -) 80 mg PO BID@0600,1400 [facility] Last Admin: 06/24/17 05:25 Dose: 80 mg Guaifenesin (Diabetic Tussin Dm -) 10 ml PO Q6H PRN PRN Reason: COUGH Last Admin: 06/18/17 21:38 Dose: 10 ml Hydralazine HCl (Apresoline -) 25 mg PO BID [facility] Last Admin: 06/24/17 09:36 Dose: 25 mg Losartan Potassium (Cozaar -) 50 mg PO DAILY [facility] Last Admin: 06/24/17 09:36 Dose: 50 mg Potassium Chloride (K-Dur -) 20 meq PO BID [facility] Last Admin: 02/07/18 09:36 Dose: 20 meq Prednisone (Deltasone -) 40 mg PO DAILY [facility] Stop: 06/28/17 09:59 Last Admin: 06/24/17 09:40 Dose: 40 mg Terazosin HCl (Hytrin -) 2 mg PO DAILY [facility] Last Admin: 06/24/17 09:35 Dose: 2 mg - Objective Vital Signs: Vital Signs Temperature 98.1 F 06/24/17 09:57 Pulse Rate 74 06/24/17 09:57 Respiratory Rate 16 06/24/17 09:57 Blood Pressure 141/67 06/24/17 09:57 O2 Sat by Pulse Oximetry (%) 98 06/23/17 21:00 Cardiovascular: Yes: S1, S2 Respiratory: Yes: Regular, CTA Bilaterally Gastrointestinal: Yes: Normal Bowel Sounds, Soft Labs: CBC, BMP 06/23/17 05:25 06/23/17 05:25 INR, PTT INR 2.27 (0.82-1.09) H 06/22/17 10:29 Problem List - Problems (1) Pneumonia Code(s): J18.9 - PNEUMONIA, UNSPECIFIED ORGANISM (2) Chest pain Code(s): R07.9 - CHEST PAIN, UNSPECIFIED Qualifiers: Chest pain type: other chest pain Qualified Code(s): R07.89 - Other chest pain (3) Acute on chronic diastolic (congestive) heart failure Code(s): I50.33 - ACUTE ON CHRONIC DIASTOLIC (CONGESTIVE) HEART FAILURE (4) Congestive heart failure Code(s): I50.9 - HEART FAILURE, UNSPECIFIED Qualifiers: Congestive heart failure type: unspecified Congestive heart failure chronicity: acute Qualified Code(s): I50.9 - Heart failure, unspecified (5) Atrial fibrillation Code(s): I48.91 - UNSPECIFIED ATRIAL FIBRILLATION Qualifiers: Atrial fibrillation type: chronic Qualified Code(s): I48.2 - Chronic atrial fibrillation (6) Aortic aneurysm Code(s): I71.9 - AORTIC ANEURYSM OF UNSPECIFIED SITE, WITHOUT RUPTURE (7) Lung mass Code(s): R91.8 - OTHER NONSPECIFIC ABNORMAL FINDING OF LUNG FIELD Assessment/Plan - Problems (1) Acute diastolic (congestive) heart failure Assessment/Plan: iv lasix--to po FOLLOW LABS and potassium repleted will recheck again weight loss noted ruddy in place Code(s): I50.31 - ACUTE DIASTOLIC (CONGESTIVE) HEART FAILURE (2) Atrial fibrillation Assessment/Plan: BB check INR today Code(s): I48.91 - UNSPECIFIED ATRIAL FIBRILLATION Qualifiers: Atrial fibrillation type: chronic Qualified Code(s): I48.2 - Chronic atrial fibrillation (3) COPD (chronic obstructive pulmonary disease) Assessment/Plan: bronchodilators and iv steroids taper to q12 Code(s): J44.9 - CHRONIC OBSTRUCTIVE PULMONARY DISEASE, UNSPECIFIED (4) History of aortic valve replacement with bioprosthetic valve Code(s): Z98.890 - OTHER SPECIFIED POSTPROCEDURAL STATES; Z95.3 - PRESENCE OF XENOGENIC HEART VALVE (5) Pneumonia Assessment/Plan: ceftin - last day today Code(s): J18.9 - PNEUMONIA, UNSPECIFIED ORGANISM (6) Anemia Assessment/Plan: vitamin B12 injection last night check level Code(s): D64.9 - ANEMIA, UNSPECIFIED Qualifiers: Anemia type: B12 deficiency (7) Acute on CKD Assessment/Plan: FOLLOW LABS ON LASIX PT
[2017-06-24 10:45] LABS: INR 1.67 (0.82-1.09); PROTHROMBIN TIME (PATIENT) 18.9 SEC (9.98-11.88)
[2017-06-24 10:56] LABS: ANION GAP 8 (8-16); BLOOD UREA NITROGEN 86 mg/dL (7-18); CALCIUM 8.7 mg/dL (8.5-10.1); CHLORIDE 90 mmol/L (98-107); CO2 39 mmol/L (21-32); CREATININE 1.9 mg/dL (0.7-1.3); GLUCOSE,RANDOM 176 mg/dL (74-106); MAGNESIUM 2.1 mg/dL (1.8-2.4); SODIUM 137 mmol/L (136-145)
[2017-06-24 11:01] LABS: POTASSIUM 2.7 mmol/L (3.5-5.1)
--- NOTE | 2017-06-24 11:20 | PN ---
Progress Note (short form) - Note Progress Note: s: no sob cp palps dizzy o: Vital Signs Period Temp Pulse Resp BP Sys/Hernandez Pulse Ox Last 24 Hr 98.1 F-98.6 F 74-90 16-79 111-141/67-80 98 nad, calm no jvd cta bl, nl eff irregular 2/6 soft sys murmur at usb + bs soft nt nd ext with trace edema, no cyanosis, clubbing aaox3 no jaundice, diaphoresis Current Medications Generic Name Dose Route Start Last Admin Trade Name Freq PRN Reason Stop Dose Admin Albuterol/Ipratropium 1 amp 06/22/17 23:24 06/24/17 08:05 Duoneb - NEB 1 amp Q6H PRN Administration SHORT OF BREATH/WHEEZING Amino Acids 30 ml 06/21/17 17:30 06/24/17 09:35 Prosource No Carb Liquid Pkt PO 30 ml BID@0800,1730 [facility] Administration Amlodipine Besylate 5 mg 06/17/17 10:00 06/24/17 09:36 Norvasc - PO 5 mg DAILY [facility] Administration Ascorbic Acid 500 mg 06/18/17 10:00 06/24/17 09:36 Vitamin C - PO 500 mg DAILY [facility] Administration Atenolol 25 mg 06/16/17 22:00 06/24/17 09:36 Tenormin - PO 25 mg BID [facility] Administration Atorvastatin Calcium 20 mg 06/16/17 22:00 06/23/17 22:01 Lipitor - PO 20 mg HS [facility] Administration Budesonide/Formoterol Fumarate 2 puff 06/16/17 22:00 06/24/17 09:38 Symbicort 160/4.5mcg - IH 2 puff BID [facility] Administration Cholecalciferol 2,000 unit 06/17/17 10:00 06/24/17 09:36 Vitamin D3 - PO 2,000 unit DAILY [facility] Administration Cyanocobalamin 1,000 mcg 06/21/17 15:00 06/24/17 09:36 Vitamin B12 Injection - IM 1,000 mcg DAILY [facility] Administration Docusate Sodium 100 mg 06/16/17 22:00 06/24/17 05:25 Colace - PO 100 mg TID [facility] Administration Furosemide 80 mg 06/23/17 14:00 06/24/17 05:25 Lasix - PO 80 mg BID@0600,1400 [facility] Administration Guaifenesin 10 ml 06/17/17 10:22 06/18/17 21:38 Diabetic Tussin Dm - PO 10 ml Q6H PRN Administration COUGH Hydralazine HCl 25 mg 06/19/17 10:00 06/24/17 09:36 Apresoline - PO 25 mg BID [facility] Administration Losartan Potassium 50 mg 06/17/17 10:00 06/24/17 09:36 Cozaar - PO 50 mg DAILY [facility] Administration Potassium Chloride 20 meq 06/16/17 22:00 06/24/17 09:36 K-Dur - PO 20 meq BID [facility] Administration Prednisone 40 mg 06/24/17 10:00 06/24/17 09:40 Deltasone - PO 06/28/17 09:59 40 mg DAILY [facility] Administration Terazosin HCl 2 mg 06/18/17 10:00 06/24/17 09:35 Hytrin - PO 2 mg DAILY [facility] Administration CBC, BMP 06/23/17 05:25 06/24/17 10:20 - ....Imaging EKG: Other (tele: afib, good HRs) EKG: afib,rate controlled, nl qtc, no ischemic changes cxr: pna echo 05/2017: mod lve, nl lvef, rv tds, sev ricardo, mild-mod mr, sev tr, sev phtn, no AI/ echo 09/2015: nl lv/rv, mild lae, nl bio avr, mild tr, mild-mod phtn carotids 12/2015: jess >70% (same location as prior stenosis seen 09/2014), no sig stenosis on left cta 2006: patent knowles/shaggy, occluded svg to OM Mibi 2011 showed only possible minimal inferolateral ischemia abd us 01/2016: 4.8 cm AAA a/p: 86 m hx pafib (on coumadin), cad s/p inferior [place] 1997, s/p cabg x3 1983 and 1997, bio avr (1983 and 1997), hld, htn, tia, s/p right cea, 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 sob, a.e. copd/respiratory infection, acute diast chf, severe pulm HTN: -no s/sx of ACS. ce's neg, ecg w/o ischemic changes -BNP 5K (prior range 1K-5K), however decr GFR confounds -pulm pressure up significantly vs prior echo--? due to component of volume excess/high left sided filling pressures -cont tx per pulm for a.e. copd and PNA/bronchitis -CT chest images reviewed (06/17): small R effusion -06/20: suspect ongoing component of HFpEF here, JVD likely. cont lasix 40 iv bid. creat stable at baseline, bun rising ? steroids effect. insert fox to monitor diuresis. -06/21: fox in, 2800 cc UOP yest. remains with probably JVD (to jaw). renal fxn stable (actually improving today)--incr lasix 40 iv bid to 80 iv bid. -06/22: UOP 4L, labs stable. cont lasix 80 iv bid today. -(note: pt was recently volume up as outpt, per d/w dr arias--given lasix 80 bid plus metolazone but became dizzy with syncope on this) - 06/23: Bun/cr worse today on lasix 80 IV bid --> team transitioned him to lasix 80 mg po bid today. Monitor volume status on po regimen. -06/24: cont po lasix 80 bid Pafib (on coumadin): - Rate controlled on BB. - AC with coumadin. Dosing per inr. cad s/p inferior [place] 1997, s/p cabg x3 1983 and 1997: -stable, no angina, nl lvef -cont medical management s/p bio avr - nl function on 06/2016 echo - nl fcn on echo here CKD: - baseline creatinine on prior admits ranges 1.5-2.0 - creat stable here hld: -cont statin htn: - bp moderately elevated here - cont current meds, added back hydralazine 25mg bid - observe bp trend, consider incr hydral dose pad, s/p cea, s/p le bypass/stenting: - Claudication is stable. Pt has been evaluated by several vascular surgeons in the past and his le dz is deemed non revascularizable. Recent carotid US shows stable disease, no new sxs. Continue current cardiac meds. AAA: - Has been stable on serial non con chest/abd ct's over the past years. Has seen vascular in past and they felt he is not a surgical candidate due to high risk. - Continue bb, statin. volume status at baseline, likely ready for dc tomorrow
--- NOTE | 2017-06-24 11:58 | PN ---
Progress Note (short form) - Note Progress Note: Renal follow up for CKD with volume overload Pt seen and examined in Tele on [place] O2 no acute complaints making urine sob is much improved, weights improved Vital Signs Temperature 98.1 F 06/24/17 09:57 Pulse Rate 74 06/24/17 09:57 Respiratory Rate 16 06/24/17 09:57 Blood Pressure 141/67 06/24/17 09:57 O2 Sat by Pulse Oximetry (%) 97 06/24/17 08:00 Intake & Output 06/21/17 06/22/17 06/23/17 06/24/17 23:59 23:59 23:59 23:59 Intake Total 100 120 450 Output Total 4150 4250 3400 200 Balance -4050 -4130 -2950 -200 Weight 84.085 kg 77.02 kg 83.869 kg 76.8 kg NAD RRR CTA trace LE edema Russo in place with yellow urine CBC, BMP 06/23/17 05:25 06/24/17 10:20 Current Medications Albuterol/Ipratropium (Duoneb -) 1 amp NEB Q6H PRN PRN Reason: SHORT OF BREATH/WHEEZING Last Admin: 06/24/17 08:05 Dose: 1 amp Amino Acids (Prosource No Carb Liquid Pkt) 30 ml PO BID@0800,1730 [facility] Last Admin: 06/24/17 09:35 Dose: 30 ml Amlodipine Besylate (Norvasc -) 5 mg PO DAILY [facility] Last Admin: 06/24/17 09:36 Dose: 5 mg Ascorbic Acid (Vitamin C -) 500 mg PO DAILY [facility] Last Admin: 06/24/17 09:36 Dose: 500 mg Atenolol (Tenormin -) 25 mg PO BID [facility] Last Admin: 06/24/17 09:36 Dose: 25 mg Atorvastatin Calcium (Lipitor -) 20 mg PO HS [facility] Last Admin: 06/23/17 22:01 Dose: 20 mg Budesonide/Formoterol Fumarate (Symbicort 160/4.5mcg -) 2 puff IH BID [facility] Last Admin: 06/24/17 09:38 Dose: 2 puff Cholecalciferol (Vitamin D3 -) 2,000 unit PO DAILY [facility] Last Admin: 06/24/17 09:36 Dose: 2,000 unit Cyanocobalamin (Vitamin B12 Injection -) 1,000 mcg IM DAILY [facility] Last Admin: 06/24/17 09:36 Dose: 1,000 mcg Docusate Sodium (Colace -) 100 mg PO TID [facility] Last Admin: 06/24/17 05:25 Dose: 100 mg Furosemide (Lasix -) 80 mg PO BID@0600,1400 [facility] Last Admin: 06/24/17 05:25 Dose: 80 mg Guaifenesin (Diabetic Tussin Dm -) 10 ml PO Q6H PRN PRN Reason: COUGH Last Admin: 06/18/17 21:38 Dose: 10 ml Hydralazine HCl (Apresoline -) 25 mg PO BID [facility] Last Admin: 06/24/17 09:36 Dose: 25 mg Potassium Chloride (Potassium Chloride 10 Meq Premix Ivpb -) 10 meq in 100 mls @ 100 mls/hr IVPB Q60M [facility] Stop: 06/24/17 14:59 Losartan Potassium (Cozaar -) 50 mg PO DAILY [facility] Last Admin: 06/24/17 09:36 Dose: 50 mg Potassium Chloride (K-Dur -) 20 meq PO TID [facility] Prednisone (Deltasone -) 40 mg PO DAILY [facility] Stop: 06/28/17 09:59 Last Admin: 06/24/17 09:40 Dose: 40 mg Terazosin HCl (Hytrin -) 2 mg PO DAILY [facility] Last Admin: 06/24/17 09:35 Dose: 2 mg 86 year old gentleman with PMhx of CHF, CKD Stage 3 w/o proteinuria, Hypertension, BPH, COPD who presented to the ED with complaints of SOB, LE swelling and reported 10 lb wegiht gain over 1 week. #CKD Stage 3 with volume overload BUN/Cr higher then baseline but stable BUN also affected by steroids pts volume status is much improved continue Lasix 80mg PO BID and trend weights Trend BUN/Cr as inpatient #Hypokalmeia from diuretic induced k loss to get IV and PO supplementation repeat BMP in evening #CHF clinically improved cardiology improving #Hx of COPD on oral steroids Pulmonary following #Normocytic Anemia s/p Rosy Toth DO
[2017-06-24] MEDS: KCL 10 MEQ IVPB 10 MEQ/100 ML INFUS.BAG IVPB SCH ×3 (12:27→13:41)
[2017-06-24] MEDS: guaiFENesin/D-M SUGAR-FREE/ACLHOL-FREE 118 ML BOTTLE PO PRN (12:27)
[2017-06-24] MEDS ORDERED: POTASSIUM CHLORIDE TABS 20 MEQ TABLET.ER (FP) PO SCH (14:00)
--- NOTE | 2017-06-24 17:26 | PN ---
Progress Note (short form) - Note Progress Note: PULMONARY States breathing continues to improve. No fevers or chills. Last Vital Signs Temp Pulse Resp BP Pulse Ox 98.1 F 74 16 126/80 97 06/24/17 09:57 06/24/17 13:35 06/24/17 13:35 06/24/17 13:35 06/24/17 08:00 Intake & Output 06/21/17 06/22/17 06/23/17 06/24/17 23:59 23:59 23:59 23:59 Intake Total 100 120 450 300 Output Total 4150 4250 3400 1200 Balance -2477 -4130 -2950 -900 Weight 84.085 kg 77.02 kg 83.869 kg 76.8 kg Gen: less tachypneic with speaking Heart: RRR, loud S2 Lung: decreased breath sounds at the bases Abd: soft, nontender Ext: decreasing edema CBC, BMP 06/23/17 05:25 06/24/17 10:20 Active Medications Albuterol/Ipratropium (Duoneb -) 1 amp NEB Q6H PRN PRN Reason: SHORT OF BREATH/WHEEZING Last Admin: 06/24/17 08:05 Dose: 1 amp Amino Acids (Prosource No Carb Liquid Pkt) 30 ml PO BID@0800,1730 [facility] Last Admin: 06/24/17 09:35 Dose: 30 ml Amlodipine Besylate (Norvasc -) 5 mg PO DAILY [facility] Last Admin: 06/24/17 09:36 Dose: 5 mg Ascorbic Acid (Vitamin C -) 500 mg PO DAILY [facility] Last Admin: 06/24/17 09:36 Dose: 500 mg Atenolol (Tenormin -) 25 mg PO BID [facility] Last Admin: 06/24/17 09:36 Dose: 25 mg Atorvastatin Calcium (Lipitor -) 20 mg PO HS [facility] Last Admin: 06/23/17 22:01 Dose: 20 mg Budesonide/Formoterol Fumarate (Symbicort 160/4.5mcg -) 2 puff IH BID [facility] Last Admin: 06/24/17 09:38 Dose: 2 puff Cholecalciferol (Vitamin D3 -) 2,000 unit PO DAILY [facility] Last Admin: 06/24/17 09:36 Dose: 2,000 unit Cyanocobalamin (Vitamin B12 Injection -) 1,000 mcg IM DAILY [facility] Last Admin: 06/24/17 09:36 Dose: 1,000 mcg Docusate Sodium (Colace -) 100 mg PO TID [facility] Last Admin: 06/24/17 14:56 Dose: 100 mg Furosemide (Lasix -) 80 mg PO BID@0600,1400 [facility] Last Admin: 06/24/17 14:56 Dose: 80 mg Guaifenesin (Diabetic Tussin Dm -) 10 ml PO Q6H PRN PRN Reason: COUGH Last Admin: 06/24/17 12:27 Dose: 10 ml Hydralazine HCl (Apresoline -) 25 mg PO BID [facility] Last Admin: 06/24/17 09:36 Dose: 25 mg Losartan Potassium (Cozaar -) 50 mg PO DAILY [facility] Last Admin: 06/24/17 09:36 Dose: 50 mg Potassium Chloride (K-Dur -) 40 meq PO TID [facility] Last Admin: 06/24/17 14:56 Dose: 40 meq Prednisone (Deltasone -) 40 mg PO DAILY [facility] Stop: 06/28/17 09:59 Last Admin: 06/24/17 09:40 Dose: 40 mg Terazosin HCl (Hytrin -) 2 mg PO DAILY [facility] Last Admin: 06/24/17 09:35 Dose: 2 mg A/P Pneumonia Acute COPD Exacerbation Chronic Hypoxic Respiratory Failure Acute Diastolic Heart Failure CAD s/p CABG s/p bio AVR Pulmonary HTN Paroxysmal Atrial Fibrillation CKD PAD h/o DVT HTN - completed antibiotics - continue lasix - monitor urine output, creatinine - daily weights, I/Os - replete lytes - prednisone taper - inhaled bronchodilators - O2 to keep SpO2 >90% - rate control - continue anticoagulation
[2017-06-24 19:36] LABS: ANION GAP 9 (8-16); BLOOD UREA NITROGEN 94 mg/dL (7-18); CALCIUM 7.9 mg/dL (8.5-10.1); CHLORIDE 92 mmol/L (98-107); CO2 34 mmol/L (21-32); CREATININE 1.9 mg/dL (0.7-1.3); GLUCOSE,RANDOM 131 mg/dL (74-106); POTASSIUM 3.2 mmol/L (3.5-5.1); SODIUM 135 mmol/L (136-145)
[2017-06-24] MEDS ORDERED: PT OWN MED DRAWER 7, Y5N ONE (20:53)
[2017-06-24] MEDS: ATORVASTATIN CA 20 MG TABLET (FP) PO SCH (21:01)
[2017-06-25] MEDS: DOCUSATE SODIUM 100 MG CAPSULE (FP) PO SCH (05:34)
[2017-06-25] MEDS: FUROSEMIDE 40 MG TABLET (FP) PO SCH (05:34)
[2017-06-25] MEDS: POTASSIUM CHLORIDE TABS 20 MEQ TABLET.ER (FP) PO SCH (05:35)
[2017-06-25 07:13] LABS: ANION GAP 10 (8-16); BLOOD UREA NITROGEN 89 mg/dL (7-18); CALCIUM 8.2 mg/dL (8.5-10.1); CHLORIDE 93 mmol/L (98-107); CO2 34 mmol/L (21-32); CREATININE 1.9 mg/dL (0.7-1.3); GLUCOSE,RANDOM 98 mg/dL (74-106); POTASSIUM 3.3 mmol/L (3.5-5.1); SODIUM 137 mmol/L (136-145)
--- NOTE | 2017-06-25 10:09 | DS ---
Physical Examination Vital Signs: Vital Signs Temperature 97.9 F 06/25/17 02:00 Pulse Rate 73 06/25/17 02:00 Respiratory Rate 18 06/25/17 02:00 Blood Pressure 141/79 06/25/17 02:00 O2 Sat by Pulse Oximetry (%) 98 06/24/17 21:00 Labs: CBC, BMP 06/23/17 05:25 06/25/17 05:35 Discharge Summary Reason For Visit: CORONARY ARTERY DISEASE,CHF,ATRIAL FIB Current Active Problems Acute diastolic (congestive) heart failure (Acute) Acute on chronic respiratory failure with hypoxemia (Acute) Anemia (Acute) Aortic aneurysm (Acute) Atrial fibrillation (Acute) COPD (chronic obstructive pulmonary disease) (Acute) Chronic renal insufficiency (Acute) Congestive heart failure (Acute) History of aortic valve replacement with bioprosthetic valve (Acute) History of aortic valve replacement with bioprosthetic valve (Acute) Lung mass (Acute) Hospital Course: This is an 86 year old male with a significant past medical history of COPD ( 3LO2NC), CAD, CABG who presented to the ED with a few day history of increased shortness of breath. He also reports weight gain and decreased urine output. He denies eating or drinking salty food. He also reports a dry cough and chest pain with inspiration. He denies fever or chills. Pt developed episode of increased persistent CP just prior to my arrival. Pain 10/10, given NTG with reduction to 5/10, ECG repeated with new ST depressions. ER course was notable for: (1) trop neg x1 (2) BNP elevated (3) CXR with JAYESH PNA Recent Travel: pt denies PAST MEDICAL HISTORY: COPD (3L O2 via NC at home), CHF, Afib, HTN, HLD, TIA, CAD, [place], anemia, DVT, CABG, valve replacement, severe PAD, AAA, CKD, BPH, HCV PAST SURGICAL HISTORY: 3vCABG 1984 bioprosthetic aortic valve 1983, 1997 R carotid endarterectomy B/L LE stenting and bypass Social History: Smoking: quit 45 years ago, 25 pack year history - Problems (1) Acute diastolic (congestive) heart failure Assessment/Plan: iv lasix--to po FOLLOW LABS and potassium repleted will recheck again weight loss noted fox in place Code(s): I50.31 - ACUTE DIASTOLIC (CONGESTIVE) HEART FAILURE (2) Atrial fibrillation Assessment/Plan: BB check INR today Code(s): I48.91 - UNSPECIFIED ATRIAL FIBRILLATION Qualifiers: Atrial fibrillation type: chronic Qualified Code(s): I48.2 - Chronic atrial fibrillation (3) COPD (chronic obstructive pulmonary disease) Assessment/Plan: bronchodilators and iv steroids taper to q12 Code(s): J44.9 - CHRONIC OBSTRUCTIVE PULMONARY DISEASE, UNSPECIFIED (4) History of aortic valve replacement with bioprosthetic valve Code(s): Z98.890 - OTHER SPECIFIED POSTPROCEDURAL STATES; Z95.3 - PRESENCE OF XENOGENIC HEART VALVE (5) Pneumonia Assessment/Plan: ceftin - last day today Code(s): J18.9 - PNEUMONIA, UNSPECIFIED ORGANISM (6) Anemia Assessment/Plan: vitamin B12 injection last night check level Code(s): D64.9 - ANEMIA, UNSPECIFIED Qualifiers: Anemia type: B12 deficiency (7) Acute on CKD Assessment/Plan: FOLLOW LABS ON LASIX dc home and follow up in office Condition: Improved - Instructions Diet, Activity, Other Instructions: take potasium 4 pills a day Referrals: Linh Mobley MD [Primary Care Provider] - 06/29/17 Disposition: HOME - Home Medications Comprehensive Discharge Medication List: Ambulatory Orders Albuterol 2.5/Ipratropium 0.5 [Duoneb -] 1 neb NEB Q4H 06/16/17 Amlodipine Besylate [Norvasc -] 5 mg PO DAILY 06/16/17 Ascorbic Acid [Vitamin C] 500 mg PO DAILY 06/16/17 Atenolol [Tenormin -] 25 mg PO BID 06/16/17 Atorvastatin Ca [Lipitor] 20 mg PO HS 06/16/17 Bifidobacterium Infantis [Align] 10.5 mg PO DAILY 06/16/17 Budesonide/Formeterol Fumarate [SYMBICORT 160/4.5mcg -] 1 inh PO BID 06/16/17 Cholecalciferol (Vitamin D3) [Vitamin D3] 2,000 unit PO DAILY 06/16/17 Cyanocobalamin [Vitamin B12 -] 100 mcg PO DAILY 06/16/17 Docusate Sodium [Colace] 100 mg PO TID 06/16/17 Furosemide [Lasix] 40 mg PO BID 06/16/17 Ipratropium [place] [Atrovent Hfa] 17 mcg IH DAILY 06/16/17 Losartan Potassium 50 mg PO DAILY 06/16/17 Potassium Chloride 20 meq PO BID 06/16/17 Terazosin HCl 2 mg PO DAILY 06/16/17 Warfarin Sodium [Coumadin] 2 mg PO DAILY 06/16/17 Furosemide [Lasix -] 80 mg PO BID@0600,1400 tablet 06/25/17 Potassium Chloride [K-Dur -] 20 meq PO TID tablet.er 06/25/17 Prednisone 10 mg PO DAILY #40 tab.ds.pk 06/25/17 hydrALAZINE HCL [Apresoline -] 25 mg PO BID #60 tablet 06/25/17
[2017-06-25] MEDS: predniSONE 20 MG TABLET (UD) PO SCH (10:30)
[2017-06-25] MEDS ORDERED: PT OWN MED DRAWER 7, Y5N ONE (10:38)
[2017-06-25] MEDS: CHOLECALCIFEROL (VITAMIN D3) 1,000 UNIT TABLET (FP) PO SCH (10:44)
[2017-06-25] MEDS: AMINO ACIDS/PROTEIN HYDROLYS 30 ML LIQUID.PKT PO SCH (10:44)
[2017-06-25] MEDS: amLODIPine BESYLATE 5 MG TABLET (FP) PO SCH (10:44)
[2017-06-25] MEDS: LOSARTAN POTASSIUM 50 MG TABLET (FP) PO SCH (10:44)
[2017-06-25] MEDS: hydrALAZINE HCL 25 MG TABLET (FP) PO SCH (10:44)
[2017-06-25] MEDS: ASCORBIC ACID 500 MG TABLET (FP) PO SCH (10:44)
[2017-06-25] MEDS: ATENOLOL 25 MG TABLET (FP) PO SCH (10:45)
[2017-06-25] MEDS: TERAZOSIN HCL 1 MG CAPSULE PO SCH (10:45)
[2017-06-25] MEDS: BUDESONIDE/FORMETEROL FUMARATE 160/4.5 mcg INHALER IH SCH (10:46)
[2017-06-25] MEDS: CYANOCOBALAMIN (VITAMIN B-12) 1000 MCG/1 ML VIAL IM SCH (10:47)
--- NOTE | 2017-06-25 10:53 | PN ---
Progress Note (short form) - Note Progress Note: s: no sob cp palps dizzy o: Vital Signs Period Temp Pulse Resp BP Sys/Hernandez Pulse Ox Last 24 Hr 97.5 F-97.9 F 73-83 16-18 110-141/78-80 98 nad, calm no jvd cta bl, nl eff irregular 2/6 soft sys murmur at usb + bs soft nt nd ext with trace edema, no cyanosis, clubbing aaox3 no jaundice, diaphoresis Current Medications Generic Name Dose Route Start Last Admin Trade Name Freq PRN Reason Stop Dose Admin Albuterol/Ipratropium 1 amp 06/22/17 23:24 06/24/17 22:47 Duoneb - NEB 1 amp Q6H PRN Administration SHORT OF BREATH/WHEEZING Amino Acids 30 ml 06/21/17 17:30 06/24/17 17:51 Prosource No Carb Liquid Pkt PO 30 ml BID@0800,1730 [facility] Administration Amlodipine Besylate 5 mg 06/17/17 10:00 06/24/17 09:36 Norvasc - PO 5 mg DAILY [facility] Administration Ascorbic Acid 500 mg 06/18/17 10:00 06/24/17 09:36 Vitamin C - PO 500 mg DAILY [facility] Administration Atenolol 25 mg 06/16/17 22:00 06/24/17 21:01 Tenormin - PO 25 mg BID [facility] Administration Atorvastatin Calcium 20 mg 06/16/17 22:00 06/24/17 21:01 Lipitor - PO 20 mg HS [facility] Administration Budesonide/Formoterol Fumarate 2 puff 06/16/17 22:00 06/24/17 21:02 Symbicort 160/4.5mcg - IH 2 puff BID [facility] Administration Cholecalciferol 2,000 unit 06/17/17 10:00 06/24/17 09:36 Vitamin D3 - PO 2,000 unit DAILY [facility] Administration Cyanocobalamin 1,000 mcg 06/21/17 15:00 06/24/17 09:36 Vitamin B12 Injection - IM 1,000 mcg DAILY [facility] Administration Docusate Sodium 100 mg 06/16/17 22:00 06/25/17 05:34 Colace - PO 100 mg TID [facility] Administration Furosemide 80 mg 06/23/17 14:00 06/25/17 05:34 Lasix - PO 80 mg BID@0600,1400 [facility] Administration Guaifenesin 10 ml 06/17/17 10:22 06/24/17 12:27 Diabetic Tussin Dm - PO 10 ml Q6H PRN Administration COUGH Hydralazine HCl 25 mg 06/19/17 10:00 06/24/17 21:01 Apresoline - PO 25 mg BID [facility] Administration Losartan Potassium 50 mg 06/17/17 10:00 06/24/17 09:36 Cozaar - PO 50 mg DAILY [facility] Administration Potassium Chloride 40 meq 06/24/17 14:45 06/25/17 05:35 K-Dur - PO 40 meq TID [facility] Administration Prednisone 40 mg 06/24/17 10:00 06/24/17 09:40 Deltasone - PO 06/28/17 09:59 40 mg DAILY [facility] Administration Terazosin HCl 2 mg 06/18/17 10:00 06/24/17 09:35 Hytrin - PO 2 mg DAILY [facility] Administration CBC, BMP 06/23/17 05:25 06/25/17 05:35 - ....Imaging EKG: Other (tele: afib, good HRs) EKG: afib,rate controlled, nl qtc, no ischemic changes cxr: pna echo 05/2017: mod lve, nl lvef, rv tds, sev ricardo, mild-mod mr, sev tr, sev phtn, no AI/ echo 09/2015: nl lv/rv, mild lae, nl bio avr, mild tr, mild-mod phtn carotids 12/2015: jess >70% (same location as prior stenosis seen 09/2014), no sig stenosis on left cta 2006: patent knowles/shaggy, occluded svg to OM Mibi 2011 showed only possible minimal inferolateral ischemia abd us 01/2016: 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 sob, a.e. copd/respiratory infection, acute diast chf, severe pulm HTN: -no s/sx of ACS. ce's neg, ecg w/o ischemic changes -BNP 5K (prior range 1K-5K), however decr GFR confounds -pulm pressure up significantly vs prior echo--? due to component of volume excess/high left sided filling pressures -cont tx per pulm for a.e. copd and PNA/bronchitis -CT chest images reviewed (06/17): small R effusion -06/20: suspect ongoing component of HFpEF here, JVD likely. cont lasix 40 iv bid. creat stable at baseline, bun rising ? steroids effect. insert fox to monitor diuresis. -06/21: fox in, 2800 cc UOP yest. remains with probably JVD (to jaw). renal fxn stable (actually improving today)--incr lasix 40 iv bid to 80 iv bid. -06/22: UOP 4L, labs stable. cont lasix 80 iv bid today. -(note: pt was recently volume up as outpt, per d/w dr arias--given lasix 80 bid plus metolazone but became dizzy with syncope on this) - 06/23: Bun/cr worse today on lasix 80 IV bid --> team transitioned him to lasix 80 mg po bid today. Monitor volume status on po regimen. -06/24-: cont po lasix 80 bid Pafib (on coumadin): - Rate controlled on BB. - AC with coumadin. Dosing per inr. cad s/p inferior TN 1997, s/p cabg x3 1983 and 1997: -stable, no angina, nl lvef -cont medical management s/p bio avr - nl function on 06/2016 echo - nl fcn on echo here CKD: - baseline creatinine on prior admits ranges 1.5-2.0 - creat stable here hld: -cont statin htn: - bp moderately elevated here - cont current meds, added back hydralazine 25mg bid - observe bp trend, consider incr hydral dose pad, s/p cea, s/p le bypass/stenting: - Claudication is stable. Pt has been evaluated by several vascular surgeons in the past and his le dz is deemed non revascularizable. Recent carotid US shows stable disease, no new sxs. Continue current cardiac meds. AAA: - Has been stable on serial non con chest/abd ct's over the past years. Has seen vascular in past and they felt he is not a surgical candidate due to high risk. - Continue bb, statin. volume status at baseline, ok for dc
[2017-06-25 12:08] VITALS: BP 138/64; PULSE 82; TEMP 98.6
== END 2017-06-25 12:34 | disposition home or self-care (01) | DRG 291 ==
LOC: JER 17:38 → JERBED 20:54 → J2W 06-17 18:13
PROVIDERS: ADMIT Internal Medicine; ATTEND Family Medicine
DX: I13.0 Hypertensive heart and chronic kidney disease with heart failure and stage 1 through stage 4 chronic kidney disease, or unspecified chronic kidney disease (principal); J18.9 Pneumonia, unspecified organism; J96.21 Acute and chronic respiratory failure with hypoxia; I50.33 Acute on chronic diastolic (congestive) heart failure; J44.1 Chronic obstructive pulmonary disease with (acute) exacerbation; E78.5 Hyperlipidemia, unspecified; N40.0 Benign prostatic hyperplasia without lower urinary tract symptoms; I27.20 Pulmonary hypertension, unspecified; I48.0 Paroxysmal atrial fibrillation; I25.10 Atherosclerotic heart disease of native coronary artery without angina pectoris; Z95.1 Presence of aortocoronary bypass graft; D64.9 Anemia, unspecified; N18.3 Chronic kidney disease, stage 3 (moderate); E87.6 Hypokalemia; E87.70 Fluid overload, unspecified; R07.9 Chest pain, unspecified; R91.8 Other nonspecific abnormal finding of lung field; I71.9 Aortic aneurysm of unspecified site, without rupture; Z87.891 Personal history of nicotine dependence
CPT/HCPCS: 36415; 36600; 71045-TC; 71250-TC; 76856-TC; 80048; 80053; 81003; 82550; 82607; 82728; 82803; 82962; 83540; 83550; 83735; 83880; 84100; 84484; 85025; 85610; 87040; 87086; 87804; 93005; 93010; 93306-TC; 94640; 97116-GP; 97161-GP; 99285-25; J1756

== ENCOUNTER 2018-08-22 15:39 | Inpatient (IN) | payer OTHER, MEDICARE ==
--- NOTE | 2018-08-22 16:45 | PDOC ---
History of Present Illness - General Chief Complaint: Wound Stated Complaint: LEG PAIN Time Seen by Provider: 08/22/18 16:21 - History of Present Illness Initial Comments: 08/22/18 17:15 The patient is a 87 year old male presenting with his , with a significant past medical history of COPD (on O2 3L daily), HLD, osteomylitis, DVT, CHF, HTN , TIA, anemia, CABG, valve replacement and diabetes, who presents to the emergency department with left leg wound. He said he woke up with a "bubble" that popped this morning and blood came out. He doesn't recall injuring his leg. Just woke up with it. The patient denies chest pain, headache and dizziness. Denies fever, chills, vomit, and constipation. Denies dysuria, frequency, urgency and hematuria. Allergies: Red and black pepper, penicillin Past surgical history: CABG, 1997 AORTIV VALVE REPLACED,TRIPLE BYPASS IN 1997 Social history: Former smoker. No alcohol or drug use reported Metal Finish Inspector; Dr. Cespedes Elementary Math Tutor: Dr. Del Rosario PMD: Dr. Mobley Past History - Past Medical History Allergies/Adverse Reactions: Allergies Allergy/AdvReac Type Severity Reaction Status Date / Time black pepper Allergy Verified 08/22/18 17:48 Penicillins Allergy Rash Verified 08/22/18 17:48 RED PEPPER Allergy Uncoded 08/22/18 17:48 Home Medications: Ambulatory Orders Albuterol 2.5/Ipratropium 0.5 [Duoneb -] 1 neb NEB Q4H 06/16/17 Amlodipine Besylate [Norvasc -] 5 mg PO DAILY 06/16/17 Ascorbic Acid [Vitamin C] 500 mg PO DAILY 06/16/17 Atenolol [Tenormin -] 25 mg PO BID 06/16/17 Atorvastatin Ca [Lipitor] 20 mg PO HS 06/16/17 Bifidobacterium Infantis [Align] 10.5 mg PO DAILY 06/16/17 Budesonide/Formeterol Fumarate [SYMBICORT 160/4.5mcg -] 1 inh PO BID 06/16/17 Cholecalciferol (Vitamin D3) [Vitamin D3] 2,000 unit PO DAILY 06/16/17 Cyanocobalamin [Vitamin B12 -] 100 mcg PO DAILY 06/16/17 Docusate Sodium [Colace] 100 mg PO TID 06/16/17 Furosemide [Lasix] 40 mg PO BID 06/16/17 Ipratropium [place] [Atrovent Hfa] 17 mcg IH DAILY 06/16/17 Losartan Potassium 50 mg PO DAILY 06/16/17 Potassium Chloride 20 meq PO BID 06/16/17 Terazosin HCl 2 mg PO DAILY 06/16/17 Warfarin Sodium [Coumadin] 2 mg PO DAILY 06/16/17 Furosemide [Lasix -] 80 mg PO BID@0600,1400 tablet 06/25/17 Potassium Chloride [K-Dur -] 20 meq PO TID tablet.er 06/25/17 Prednisone 10 mg PO DAILY #40 tab.ds.pk 06/25/17 hydrALAZINE HCL [Apresoline -] 25 mg PO BID #60 tablet 06/25/17 Anemia: Yes Asthma: No Cancer: No Cardiac Disorders: Yes (CABG, valve replacement) CVA: Yes () COPD: No CHF: Yes DVT: Yes Dementia: No Diabetes: Yes GI Disorders: No Disorders: No HTN: Yes Hypercholesterolemia: Yes Liver Disease: No Seizures: No Thyroid Disease: No - Surgical History Abdominal Surgery: No Appendectomy: No Cardiac Surgery: Yes (CABG, 1997 AORTIV VALVE REPLACED,TRIPLE BYPASS IN 1997) Cholecystectomy: No Lung Surgery: No Neurologic Surgery: No Orthopedic Surgery: No - Immunization History Td Vaccination: Yes Immunization Up to Date: Yes - Suicide/Smoking/Psychosocial Hx Smoking Status: Yes (40 YRS QUIT) Smoking History: Former smoker Have you smoked in the past 12 months: No Number of Cigarettes Smoked Daily: 0 If you are a former smoker, when did you quit?: 45 years ago Information on smoking cessation initiated: No 'Breaking Loose' booklet given: 10/10/12 Hx Alcohol Use: No Drug/Substance Use Hx: No Substance Use Type: None Hx Substance Use Treatment: No Review of Systems - Review of Systems Able to Perform ROS?: Yes Is the patient limited Mauritian proficient: No Constitutional: No: Symptoms Reported HEENTM: No: Symptoms Reported Respiratory: No: Symptoms reported Cardiac (ROS): No: Symptoms Reported ABD/GI: No: Symptoms Reported : No: Symptoms Reported Musculoskeletal: No: Symptoms Reported Integumentary: Yes: See HPI Neurological: No: Symptoms reported All Other Systems: Reviewed and Negative *Physical Exam - Vital Signs Last Vital Signs Temp Pulse Resp BP Pulse Ox 98 F 73 18 177/76 H 93 L 08/22/18 15:43 08/22/18 15:43 08/22/18 15:43 08/22/18 15:43 08/22/18 15:43 - Physical Exam General Appearance: Yes: Nourished, Appropriately Dressed. No: Apparent Distress HEENT: positive: EOMI, FRANK, Normal ENT Inspection Respiratory/Chest: positive: Lungs Clear, Normal Breath Sounds. negative: Chest Tender, Respiratory Distress Cardiovascular: positive: Regular Rhythm, Regular Rate, S1, S2 Gastrointestinal/Abdominal: positive: Normal Bowel Sounds, Flat, Soft. negative : Tender Extremity: positive: Pedal Edema (4x4cm lesion skin dehiscence), Calf Tenderness , Other Integumentary: positive: Other (cellulitic skin arounf the wound. ) Neurologic: positive: Fully Oriented, Alert, Normal Mood/Affect, Normal Response , Motor Strength 5/5 ED Treatment Course - LABORATORY CBC & Chemistry Diagram: 08/22/18 16:55 08/22/18 16:55 Medical Decision Making - Medical Decision Making 08/22/18 17:26 87m with new wound over left lower calf. Possibly cellulitic. Will send septic workup but etiology seems to be venous stasis . EKG: Atrial fibrillaiton with slow ventricular response. RBBB. Abnormal ECG. rate: 57bmp.QRS: 152, QT/QTc: 480/467 08/22/18 18:46 CXR: Pulmonary congestion with early interstitial edema Developing opacities within the lingular segment suspected. 08/22/18 19:44 Will start on antibiotics (Vanco) 08/22/18 19:49 Admitted for observation *DC/Admit/Observation/Transfer Diagnosis at time of Disposition: Leg wound, left - Discharge Dispostion Decision to Admit order: Yes - Referrals Referrals: Linh Mobley MD [Primary Care Provider] - - Patient Instructions - Post Discharge Activity
[2018-08-22 17:24] LABS: BASO % 0.6 % (0-2.0); EOS % 5.4 % (0-4.5); HEMOGLOBIN 10.6 GM/dL (11.7-16.9); LYMPH % 10.9 % (8-40); MCH 30.2 pg (25.7-33.7); MCHC 33.2 g/dl (32.0-35.9); MEAN CELL VOLUME 90.8 fl (80-96); MEAN PLT VOLUME 8.8 fl (7.5-11.1); MONO % 9.4 % (3.8-10.2); NEUT % 73.7 % (42.8-82.8); PLATELET COUNT 157 K/MM3 (134-434); RBC 3.53 M/mm3 (4.00-5.60); RDW 18.3 % (11.9-15.9); WHITE BLOOD COUNT 7.5 K/mm3 (4.0-10.0)
[2018-08-22 17:31] LABS: INR 2.85 (0.83-1.09)
[2018-08-22 17:33] LABS: ACTIVATED PTT 43.5 SECONDS (25.2-36.5)
[2018-08-22 17:41] LABS: ALBUMIN 3.7 g/dl (3.4-5.0); ALK PHOS 95 U/L (45-117); ANION GAP 7 MMOL/L (8-16); BILIRUBIN,TOTAL 0.4 mg/dL (0.2-1); BLOOD UREA NITROGEN 53 mg/dL (7-18); CALCIUM 9.1 mg/dL (8.5-10.1); CHLORIDE 96 mmol/L (98-107); CO2 36 mmol/L (21-32); CREATININE 1.9 mg/dL (0.55-1.3); GLUCOSE,RANDOM 97 mg/dL (74-106); POTASSIUM 3.4 mmol/L (3.5-5.1); SGOT/AST 21 U/L (15-37); SGPT/ALT 22 U/L (13-61); SODIUM 140 mmol/L (136-145); TOT PROT 7.5 g/dl (6.4-8.2)
[2018-08-22] MEDS ORDERED: SODIUM CHLORIDE 500 ML IV STA (17:47)
[2018-08-22] MEDS ORDERED: BACITRACIN 0.9 GM PACKET ONE ×2 (18:03→21:04)
[2018-08-22 18:09] LABS: URINE APPEARANCE CLEAR; URINE BILIRUBIN NEGATIVE (NEGATIVE); URINE COLOR YELLOW; URINE GLUCOSE (UA) NEGATIVE (NEGATIVE); URINE KETONE NEGATIVE (NEGATIVE); URINE LEUK ESTERASE NEGATIVE (NEGATIVE); URINE NITRITE NEGATIVE (NEGATIVE); URINE PROTEIN NEGATIVE (NEGATIVE); URINE UROBILINOGEN 0.2 mg/dL (0.2-1.0)
[2018-08-22] MEDS ORDERED: ACETAMINOPHEN 1000 MG/100 ML VIAL (NON FORMULARY) IVPB ONE (18:21)
--- NOTE | 2018-08-22 18:47 | PDOC ---
Attending Attestation - HPI HPI: 08/22/18 19:21 The patient is a 87 year old male, with a significant past medical history of COPD (on O2 3L daily), HLD, osteomyelitis, DVT, CHF, HTN, TIA, anemia, CABG, valve replacement and diabetes, who presents to the emergency department with, left leg wound. Patient notes a blister on the LLE which subsequently popped, prompting his arrival to the ED. He denies any recent nausea, vomit, diarrhea or constipation. He denies any recent chest pain or shortness of breath. He denies any recent dysuria, frequency, urgency or hematuria. Allergies: Red and black pepper, penicillin Past surgical history: CABG, 1997 AORTIC VALVE REPLACED,TRIPLE BYPASS IN 1997 Social history: Former smoker. No alcohol or drug use reported Retirement Administrator; Dr. Cespedes Forest Resources Professor: Dr. Del Rosario Primary Care Physician: Dr. Mobley - Physicial Exam PE: 08/22/18 19:21 GENERAL: Well-appearing, well-nourished. No apparent distress. HEENT: Normocephalic, atraumatic. PERRL, EOM intact. CARDIOVASCULAR: +Mechanical valve clicking. PULMONARY: Clear to auscultation bilaterally. ABDOMEN: Soft, non-distended, non-tender. EXTREMITIES: Normal ROM in all four extremities. SKIN: +5x4cm wound with exposed dermis. NEUROLOGICAL: No focal neurological deficits. <Abhishek Mtz - Last Filed: 08/22/18 19:55> - Resident Resident Name: Marcel Hinton - ED Attending Attestation I have performed the following: I have examined & evaluated the patient, The case was reviewed & discussed with the resident, I agree w/resident's findings & plan, Exceptions are as noted - Medical Decision Making 08/22/18 20:10 concern for early cellulitis/case discussed w Dr Millan who will see this pt 08/22/18 21:52 cxr congestion,questionable lingular infiltrates/ pt is admitted by Dr Millan <Dorita Bhakta - Last Filed: 08/22/18 23:38> Attestations - Attestations 08/22/18 19:25 Documentation prepared by Abhishek Mtz, acting as medical office asst for Dorita Bhakta MD. <Abhishek Mtz - Last Filed: 08/22/18 19:55>
[2018-08-22] MEDS ORDERED: FUROSEMIDE 100 MG/10 ML INJECTABLE VIAL IVPB ONE (19:47)
[2018-08-22] MEDS ORDERED: VANCOMYCIN 1 GM in D5W (PRE-DOCKED) 1,000 MG/250 ML IVPB ONE (19:48)
[2018-08-22] MEDS ORDERED: FUROSEMIDE 40 MG/4 ML INJECTABLE VIAL ONE (20:14)
[2018-08-22] MEDS ORDERED: VANCOMYCIN 1 GRAM (PRE-DOCKED) 1,000 MG/250 ML BAG IVPB ONE (20:14)
--- NOTE | 2018-08-22 21:01 | HP ---
CHIEF COMPLAINT: rt leg swelling and open wound PCP:dr Coleman HISTORY OF PRESENT ILLNESS: The patient is a 87 year old male, with a significant past medical history of COPD (on O2 3L daily), HLD, osteomyelitis, DVT, CHF, HTN, TIA, anemia, CABG, valve replacement and diabetes, who presents to the emergency department with, left leg wound. Patient notes a blister on the LLE which subsequently popped, prompting his arrival to the ED.he also have associated leg swelling more on rt side than left .He is also c/o mild pain in his rt leg and he always has reddish chronic changes in his both legs .He denies any sob , fever or chills.Recently his lasix dose is increased. He denies any recent nausea, vomit, diarrhea or constipation. He denies any recent chest pain or shortness of breath. He denies any recent dysuria, frequency, urgency or hematuria. ER course was notable for: (1)leg swelling (2)h/o renal insufficiency (3)h/o heart problem Recent Travel:none PAST MEDICAL HISTORY: The patient is a 87 year old male, with a significant past medical history of COPD (on O2 3L daily), HLD, osteomyelitis, DVT, CHF, HTN, TIA, anemia, CABG, valve replacement and diabetes, PAST SURGICAL HISTORY: Social History: Smoking:none Alcohol: Drugs: Family History: Allergies black pepper Allergy (Verified 08/22/18 17:48) Penicillins Allergy (Verified 08/22/18 17:48) Rash RED PEPPER Allergy (Uncoded 08/22/18 17:48) HOME MEDICATIONS: Home Medications Medication Instructions Recorded Albuterol 2.5/Ipratropium 0.5 1 neb NEB Q4H 06/16/17 [Duoneb -] Amlodipine Besylate [Norvasc -] 5 mg PO DAILY 06/16/17 Ascorbic Acid [Vitamin C] 500 mg PO DAILY 06/16/17 Atenolol [Tenormin -] 25 mg PO BID 06/16/17 Atorvastatin Ca [Lipitor] 20 mg PO HS 06/16/17 Bifidobacterium Infantis [Align] 10.5 mg PO DAILY 06/16/17 Budesonide/Formeterol Fumarate 1 inh PO BID 06/16/17 [SYMBICORT 160/4.5mcg -] Cholecalciferol (Vitamin D3) 2,000 unit PO DAILY 06/16/17 [Vitamin D3] Cyanocobalamin [Vitamin B12 -] 100 mcg PO DAILY 06/16/17 Docusate Sodium [Colace] 100 mg PO TID 06/16/17 Furosemide [Lasix] 40 mg PO BID 06/16/17 Ipratropium [place] [Atrovent Hfa] 17 mcg IH DAILY 06/16/17 Losartan Potassium 50 mg PO DAILY 06/16/17 Potassium Chloride 20 meq PO BID 06/16/17 Terazosin HCl 2 mg PO DAILY 06/16/17 Warfarin Sodium [Coumadin] 2 mg PO DAILY 06/16/17 Furosemide [Lasix -] 80 mg PO BID@0600,1400 tablet 06/25/17 Potassium Chloride [K-Dur -] 20 meq PO TID tablet.er 06/25/17 hydrALAZINE HCL [Apresoline -] 25 mg PO BID #60 tablet 06/25/17 REVIEW OF SYSTEMS CONSTITUTIONAL: Absent: fever, chills, diaphoresis, generalized weakness, malaise, loss of appetite, weight change HEENT: Absent: rhinorrhea, nasal congestion, throat pain, throat swelling, difficulty swallowing, mouth swelling, ear pain, eye pain, visual changes CARDIOVASCULAR: Absent: chest pain, syncope, palpitations, irregular heart rate, lightheadedness , present peripheral edema RESPIRATORY: Absent: cough, shortness of breath, dyspnea with exertion, orthopnea, wheezing, stridor, hemoptysis GASTROINTESTINAL: Absent: abdominal pain, abdominal distension, nausea, vomiting, diarrhea, constipation, melena, hematochezia GENITOURINARY: Absent: dysuria, frequency, urgency, hesitancy, hematuria, flank pain, genital pain MUSCULOSKELETAL: Absent: myalgia, arthralgia, joint swelling, back pain, neck pain SKIN: Absent: rash, itching, pallor HEMATOLOGIC/IMMUNOLOGIC: Absent: easy bleeding, easy bruising, lymphadenopathy, frequent infections ENDOCRINE: Absent: unexplained weight gain, unexplained weight loss, heat intolerance, cold intolerance NEUROLOGIC: Absent: headache, focal weakness or paresthesias, dizziness, unsteady gait, seizure, mental status changes, bladder or bowel incontinence PSYCHIATRIC: Absent: anxiety, depression, suicidal or homicidal ideation, hallucinations. PHYSICAL EXAMINATION Vital Signs - 24 hr 08/22/18 08/22/18 15:43 18:36 Temperature 98 F Pulse Rate 73 Respiratory 18 Rate Blood Pressure 177/76 H O2 Sat by Pulse 93 L 97 Oximetry (%) GENERAL: Awake, alert, and fully oriented, in no acute distress. HEAD: Normal with no signs of trauma. EYES: Pupils equal, round and reactive to light, extraocular movements intact, sclera anicteric, conjunctiva clear. No lid lag. EARS, NOSE, THROAT: Ears normal, nares patent, oropharynx clear without exudates. Moist mucous membranes. NECK: Normal range of motion, supple without lymphadenopathy, JVD, or masses. LUNGS: Breath sounds equal, clear to auscultation bilaterally. No wheezes, and no crackles. No accessory muscle use. HEART: Regular rate and rhythm, normal S1 and S2 without murmur, rub or gallop. ABDOMEN: Soft, nontender, not distended, normoactive bowel sounds, no guarding, no rebound, no masses. No hepatomegaly or splenomegaly. MUSCULOSKELETAL: Normal range of motion at all joints. No bony deformities or tenderness. No CVA tenderness. UPPER EXTREMITIES: 2+ pulses, warm, well-perfused. No cyanosis. No clubbing. No peripheral edema. LOWER EXTREMITIES: 2+ pulses, warm, well-perfused. has edema on both sides more right than left along with peripheral chronic skin changes . patient also have open skin blister on his rt leg he has no sign of cellulites NEUROLOGICAL: Cranial nerves II-XII intact. Normal speech. Normal gait. PSYCHIATRIC: Cooperative. Good eye contact. Appropriate mood and affect. SKIN: Warm, dry, normal turgor, no rashes or lesions noted, normal capillary refill. Laboratory Results - last 24 hr 08/22/18 08/22/18 08/22/18 16:55 16:55 16:55 WBC 7.5 RBC 3.53 L Hgb 10.6 L Hct 32.0 L MCV 90.8 MCH 30.2 MCHC 33.2 RDW 18.3 H Plt Count 157 MPV 8.8 Absolute Neuts (auto) 5.5 Neutrophils % 73.7 Lymphocytes % 10.9 D Monocytes % 9.4 D Eosinophils % 5.4 H D Basophils % 0.6 D Nucleated RBC % 0 PT with INR 34.00 H INR 2.85 H PTT (Actin FS) 43.5 H Sodium 140 Potassium 3.4 L Chloride 96 L Carbon Dioxide 36 H Anion Gap 7 L BUN 53 H Creatinine 1.9 H Creat Clearance w eGFR 33.70 Random Glucose 97 Lactic Acid Calcium 9.1 Total Bilirubin 0.4 AST 21 ALT 22 Alkaline Phosphatase 95 CK-MB (CK-2) 3.1 Troponin I < 0.02 Total Protein 7.5 Albumin 3.7 Urine Color Urine Appearance Urine pH Ur Specific [place] Urine Protein Urine Glucose (UA) Urine Ketones Urine Blood Urine Nitrite Urine Bilirubin Urine Urobilinogen Ur Leukocyte Esterase 08/22/18 08/22/18 16:58 17:45 WBC RBC Hgb Hct MCV MCH MCHC RDW Plt Count MPV Absolute Neuts (auto) Neutrophils % Lymphocytes % Monocytes % Eosinophils % Basophils % Nucleated RBC % PT with INR INR PTT (Actin FS) Sodium Potassium Chloride Carbon Dioxide Anion Gap BUN Creatinine Creat Clearance w eGFR Random Glucose Lactic Acid 2.3 H* Calcium Total Bilirubin AST ALT Alkaline Phosphatase CK-MB (CK-2) Troponin I Total Protein Albumin Urine Color Yellow Urine Appearance Clear Urine pH 7.0 D Ur Specific [place] 1.008 L Urine Protein Negative Urine Glucose (UA) Negative Urine Ketones Negative Urine Blood Negative Urine Nitrite Negative Urine Bilirubin Negative Urine Urobilinogen 0.2 Ur Leukocyte Esterase Negative ASSESSMENT/PLAN: The patient is a 87 year old male, with a significant past medical history of COPD (on O2 3L daily), HLD, osteomyelitis, DVT, CHF, HTN, TIA, anemia, CABG, valve replacement and diabetes, who presents to the emergency department with, left leg wound. Patient notes a blister on the LLE which subsequently popped, prompting his arrival to the ED. Leg edema - will stop amlodipine and strart lasix on 100 mg ivp bid equal to his daily dose -start him on local dressing with bacitracin -no need for iv abx - will do leg elevations. Htn renew his home meds - will watch for his bp bc amlodipine is stopped - chf continue lasix renal insuficnecy I reviewed old chart and 1.9 is his baseline creatinine will repeat labs in am Asthma continue inhaller and symbicort Activity as tolerated He is already on coumadin and so no need for any more dvt prophylaxis dw family and patient in detail total time spent is 70 minutes Visit type - Emergency Visit Emergency Visit: Yes ED Registration Date: 08/22/18 Care time: The patient presented to the Emergency Department on the above date and was hospitalized for further evaluation of their emergent condition. - New Patient This patient is new to me today: Yes Date on this admission: 08/22/18 - Critical Care Critical Care patient: No
[2018-08-22] MEDS ORDERED: METOLAZONE 2.5 MG TABLET (FP) PO ONE (21:37)
[2018-08-22] MEDS: hydrALAZINE HCL 25 MG TABLET (FP) PO SCH (22:45)
[2018-08-22] MEDS: DOCUSATE SODIUM 100 MG CAPSULE (FP) PO SCH (22:45)
[2018-08-22] MEDS: POTASSIUM CHLORIDE TABS 20 MEQ TABLET.ER (FP) PO SCH (22:45)
[2018-08-22] MEDS: BUDESONIDE/FORMETEROL FUMARATE 160/4.5 mcg INHALER IH SCH (22:46)
[2018-08-22] MEDS: ATORVASTATIN CA 20 MG TABLET (FP) PO SCH (22:46)
[2018-08-22] MEDS: ATENOLOL 25 MG TABLET (FP) PO SCH (23:46)
[2018-08-22] MEDS: BACITRACIN 15 GM TUBE TOPICAL OINTMENT TP SCH (23:46)
[2018-08-23 00:17] LABS: N-TERMINAL BNP 2404.2 pg/ml (5-450)
[2018-08-23] MEDS ORDERED: ACETAMINOPHEN 325 MG TABLET (FP) ONE ×2 (00:33→08:49)
[2018-08-23] MEDS ORDERED: oxyCODONE HCL 5 MG TABLET ONE ×2 (00:35→08:50)
[2018-08-23] MEDS: oxyCODONE HCL 5 MG TABLET PO PRN ×2 (00:41→09:15)
[2018-08-23] MEDS: ACETAMINOPHEN 325 MG TABLET (FP) PO PRN ×2 (00:42→09:15)
[2018-08-23] MEDS: ALBUTEROL SO4 2.5/IPRATROPIUM 0.5 INH SOL 3 ML VIAL.NEB. NEB SCH ×5 (00:50→21:00)
[2018-08-23] MEDS ORDERED: ALBUTEROL SO4 2.5/IPRATROPIUM 0.5 INH SOL 3 ML VIAL.NEB. NEB ONE ×3 (01:22→10:33)
[2018-08-23] MEDS ORDERED: FUROSEMIDE 40 MG/4 ML INJECTABLE VIAL ONE (06:02)
[2018-08-23] MEDS ORDERED: POTASSIUM CHLORIDE TABS 20 MEQ TABLET.ER (FP) PO ONE (06:02)
[2018-08-23] MEDS: POTASSIUM CHLORIDE TABS 20 MEQ TABLET.ER (FP) PO SCH ×3 (06:26→22:05)
[2018-08-23] MEDS: DOCUSATE SODIUM 100 MG CAPSULE (FP) PO SCH ×3 (06:26→22:05)
[2018-08-23] MEDS: FUROSEMIDE 100 MG/10 ML INJECTABLE VIAL IVPB SCH ×2 (06:26→16:34)
[2018-08-23 06:37] LABS: ANION GAP 6 MMOL/L (8-16); BLOOD UREA NITROGEN 54 mg/dL (7-18); CHLORIDE 96 mmol/L (98-107); CO2 35 mmol/L (21-32); GLUCOSE,RANDOM 110 mg/dL (74-106); POTASSIUM 3.1 mmol/L (3.5-5.1); SODIUM 137 mmol/L (136-145)
[2018-08-23] MEDS: ATENOLOL 25 MG TABLET (FP) PO SCH ×2 (09:14→22:05)
[2018-08-23] MEDS: CHOLECALCIFEROL (VITAMIN D3) 1,000 UNIT TABLET (FP) PO SCH (09:14)
[2018-08-23] MEDS: LOSARTAN POTASSIUM 50 MG TABLET (FP) PO SCH (09:14)
[2018-08-23] MEDS: hydrALAZINE HCL 25 MG TABLET (FP) PO SCH ×2 (09:14→22:05)
[2018-08-23] MEDS: BUDESONIDE/FORMETEROL FUMARATE 160/4.5 mcg INHALER IH SCH ×3 (09:16→22:11)
[2018-08-23] MEDS: TIOTROPIUM BROMIDE 2.5 MCG (SPIRIVA) RESPIMAT INHALER IH SCH (09:16)
[2018-08-23] MEDS ORDERED: BACITRACIN 0.9 GM PACKET ONE (09:24)
[2018-08-23] MEDS: BACITRACIN 15 GM TUBE TOPICAL OINTMENT TP SCH ×3 (09:37→22:05)
[2018-08-23] MEDS ORDERED: TERAZOSIN HCL 2 MG CAPSULE PO SCH (10:00)
--- NOTE | 2018-08-23 14:31 | PN ---
Progress Note, Physician Chief Complaint: patient seen and examiend in ER earlier today says his leg swelling much better on lasix iv bid - Current Medication List Current Medications: Active Medications Acetaminophen (Tylenol -) 650 mg PO Q6H PRN PRN Reason: PAIN LEVEL 1-5 Last Admin: 08/23/18 09:15 Dose: 650 mg Albuterol/Ipratropium (Duoneb -) 1 amp NEB RQ4H [facility] Last Admin: 08/23/18 12:04 Dose: 1 amp Atenolol (Tenormin -) 25 mg PO BID [facility] Last Admin: 08/23/18 09:14 Dose: 25 mg Atorvastatin Calcium (Lipitor -) 20 mg PO HS [facility] Last Admin: 08/22/18 22:46 Dose: 20 mg Bacitracin (Bacitracin -) 1 applic TP BID [facility] Last Admin: 08/23/18 09:37 Dose: 1 applic Budesonide/Formoterol Fumarate (Symbicort 160/4.5mcg -) 1 puff IH BID [facility] Last Admin: 08/23/18 10:42 Dose: 1 puff Cholecalciferol (Vitamin D3 -) 2,000 unit PO DAILY [facility] Last Admin: 08/23/18 09:14 Dose: 2,000 unit Docusate Sodium (Colace -) 100 mg PO TID [facility] Last Admin: 08/23/18 06:26 Dose: 100 mg Furosemide (Lasix Injection -) 100 mg IVPB BIDLASIX [facility] Last Admin: 08/23/18 06:26 Dose: 100 mg Hydralazine HCl (Apresoline -) 25 mg PO BID [facility] Last Admin: 08/23/18 09:14 Dose: 25 mg Losartan Potassium (Cozaar -) 50 mg PO DAILY [facility] Last Admin: 08/23/18 09:14 Dose: 50 mg Melatonin (Melatonin) 5 mg PO HS PRN PRN Reason: INSOMNIA Oxycodone HCl (Roxicodone -) 5 mg PO Q6H PRN PRN Reason: PAIN LEVEL 6-10 Last Admin: 08/23/18 09:15 Dose: 5 mg Potassium Chloride (K-Dur -) 20 meq PO TID [facility] Last Admin: 08/23/18 06:26 Dose: 20 meq Terazosin HCl (Hytrin -) 2 mg PO DAILY [facility] Last Admin: 08/23/18 09:14 Dose: 2 mg Tiotropium [place] (Spiriva Respimat) 2 puff IH DAILY [facility] Last Admin: 08/23/18 09:16 Dose: Not Given Warfarin Sodium (Coumadin -) 2 mg PO DAILY@1800 [facility] - Objective Vital Signs: Vital Signs Temperature 98.2 F 08/23/18 13:23 Pulse Rate 16 L 08/23/18 13:23 Respiratory Rate 16 08/23/18 13:23 Blood Pressure 154/87 08/23/18 13:23 O2 Sat by Pulse Oximetry (%) 99 08/23/18 13:23 Constitutional: Yes: Calm Cardiovascular: Yes: Regular Rate and Rhythm, S1, S2 Respiratory: Yes: CTA Bilaterally Gastrointestinal: Yes: Normal Bowel Sounds, Soft Extremities: Yes: Other (wound open) Edema: Yes (improved) Neurological: Yes: Alert Labs: CBC, BMP 08/22/18 16:55 08/23/18 05:40 INR, PTT INR 2.85 (0.83-1.09) H 08/22/18 16:55 Problem List - Problems (1) Leg wound, left Assessment/Plan: wound care team bacitracin dry dressing ID Code(s): S81.802A - UNSPECIFIED OPEN WOUND, LEFT LOWER LEG, INITIAL ENCOUNTER (2) Acute on chronic diastolic (congestive) heart failure Assessment/Plan: iv lasix bid echo cardiology losartan tenormin Code(s): I50.33 - ACUTE ON CHRONIC DIASTOLIC (CONGESTIVE) HEART FAILURE (3) Chronic renal insufficiency Assessment/Plan: renal consult Code(s): N18.9 - CHRONIC KIDNEY DISEASE, UNSPECIFIED Qualifiers: Chronic kidney disease stage: unspecified stage Qualified Code(s): N18.9 - Chronic kidney disease, unspecified (4) Electrolyte abnormality Assessment/Plan: magneisum and potasium Code(s): E87.8 - OTH DISORDERS OF ELECTROLYTE AND FLUID BALANCE, NEC (5) COPD (chronic obstructive pulmonary disease) Assessment/Plan: bronchodilators Code(s): J44.9 - CHRONIC OBSTRUCTIVE PULMONARY DISEASE, UNSPECIFIED
[2018-08-23 14:35] VITALS: BMI 25.6
--- NOTE | 2018-08-23 15:34 | EKG ---
Test Reason : Blood Pressure : / mmHG Vent. Rate : 057 BPM Atrial Rate : 056 BPM P-R Int : 000 ms QRS Dur : 152 ms QT Int : 480 ms P-R-T Axes : 000 -20 010 degrees QTc Int : 467 ms ATRIAL FIBRILLATION WITH SLOW VENTRICULAR RESPONSE RIGHT BUNDLE BRANCH BLOCK ABNORMAL ECG WHEN COMPARED WITH ECG OF 17-JUN-2017 09:07, RIGHT BUNDLE BRANCH BLOCK IS NOW PRESENT Confirmed by ERNIE FOREMAN, VIANEY ([id number]) on 08/23/2018 3:33:38 PM Referred By: Confirmed By:VIANEY KLEIN MD
--- NOTE | 2018-08-23 16:10 | CON.CARD ---
Cardiology Consult (text) - Consultation Consultation Note: Consultation Note: CC: L leg wound 87 m hx pafib (on coumadin), cad s/p inferior CT 1997, s/p cabg x3 1983 and 1997 , bio avr (1983 and 1997), hld, htn, tia, s/p right cea, pad with severe bl le dz s/p stenting and bypass, AAA, DM, ckd (1.3-1.7), obesity, dvt, hcv, COPD on home O2 3L p/w L leg wound. Sees Dr. Cespedes for cardio. Had lower ext swelling, saw PCP and lasix was increased from 80 mg BID to 120 mg AM and 80 mg PM, did not improve at home. Has blister on L leg which popped so came to the ER, with leg swelling R>L. No chest pain, palps, dyspnea. Started on lasix 100 mg IV BID, edema improving. pmhx/pshx: per hpi social hx: former smoker, no etoh or illicits fam hx: no premature cad ros: per hpi; no nvd, fever, kumar, vision changes, hematuria, dysuria, muscle pains Home Medications Medication Instructions Recorded Albuterol 2.5/Ipratropium 0.5 1 neb NEB Q4H 06/16/17 [Duoneb -] Amlodipine Besylate [Norvasc -] 5 mg PO DAILY 06/16/17 Ascorbic Acid [Vitamin C] 500 mg PO DAILY 06/16/17 Atenolol [Tenormin -] 25 mg PO BID 06/16/17 Atorvastatin Ca [Lipitor] 20 mg PO HS 06/16/17 Bifidobacterium Infantis [Align] 10.5 mg PO DAILY 06/16/17 Budesonide/Formeterol Fumarate 1 inh PO BID 06/16/17 [SYMBICORT 160/4.5mcg -] Cholecalciferol (Vitamin D3) 2,000 unit PO DAILY 06/16/17 [Vitamin D3] Cyanocobalamin [Vitamin B12 -] 100 mcg PO DAILY 06/16/17 Docusate Sodium [Colace] 100 mg PO TID 06/16/17 Furosemide [Lasix] 40 mg PO BID 06/16/17 Ipratropium [place] [Atrovent Hfa] 17 mcg IH DAILY 06/16/17 Losartan Potassium 50 mg PO DAILY 06/16/17 Potassium Chloride 20 meq PO BID 06/16/17 Terazosin HCl 2 mg PO DAILY 06/16/17 Warfarin Sodium [Coumadin] 2 mg PO DAILY 06/16/17 Furosemide [Lasix -] 80 mg PO BID@0600,1400 tablet 06/25/17 Potassium Chloride [K-Dur -] 20 meq PO TID tablet.er 06/25/17 Prednisone 10 mg PO DAILY #40 tab.ds.pk 06/25/17 hydrALAZINE HCL [Apresoline -] 25 mg PO BID #60 tablet 06/25/17 Allergies Allergy/AdvReac Type Severity Reaction Status Date / Time black pepper Allergy Verified 08/22/18 17:48 Penicillins Allergy Rash Verified 08/22/18 17:48 RED PEPPER Allergy Uncoded 08/22/18 17:48 Vital Signs Period Temp Pulse Resp BP Sys/Hernandez Pulse Ox Last 24 Hr 97.8 F-98.2 F 16-72 16-18 154-185/78-92 96-100 nad, calm jvd elevated, neck supple scattered rhonchi/wheezes, nl eff irregular 2/6 soft sys murmur at usb + bs soft nt nd ext with trace edema, no cyanosis, clubbing aaox3 no jaundice, diaphoresis pos dp pt no carotid bruits Laboratory Last Values WBC 7.5 K/mm3 (4.0-10.0) 08/22/18 16:55 RBC 3.53 M/mm3 (4.00-5.60) L 08/22/18 16:55 Hgb 10.6 GM/dL (11.7-16.9) L 08/22/18 16:55 Hct 32.0 % (35.4-49) L 08/22/18 16:55 MCV 90.8 fl (80-96) 08/22/18 16:55 MCH 30.2 pg (25.7-33.7) 08/22/18 16:55 MCHC 33.2 g/dl (32.0-35.9) 08/22/18 16:55 RDW 18.3 % (11.9-15.9) H 08/22/18 16:55 Plt Count 157 K/MM3 (134-434) 08/22/18 16:55 MPV 8.8 fl (7.5-11.1) 08/22/18 16:55 Absolute Neuts (auto) 5.5 K/mm3 (1.5-8.0) 08/22/18 16:55 Neutrophils % 73.7 % (42.8-82.8) 08/22/18 16:55 Lymphocytes % 10.9 % (8-40) D 08/22/18 16:55 Monocytes % 9.4 % (3.8-10.2) D 08/22/18 16:55 Eosinophils % 5.4 % (0-4.5) H D 08/22/18 16:55 Basophils % 0.6 % (0-2.0) D 08/22/18 16:55 Nucleated RBC % 0 % (0-0) 08/22/18 16:55 PT with INR 34.00 SEC (9.7-13.0) H 08/22/18 16:55 INR 2.85 (0.83-1.09) H 08/22/18 16:55 PTT (Actin FS) 43.5 SECONDS (25.2-36.5) H 08/22/18 16:55 Sodium 137 mmol/L (136-145) 08/23/18 05:40 Potassium 3.1 mmol/L (3.5-5.1) L 08/23/18 05:40 Chloride 96 mmol/L (98-107) L 08/23/18 05:40 Carbon Dioxide 35 mmol/L (21-32) H 08/23/18 05:40 Anion Gap 6 MMOL/L (8-16) L 08/23/18 05:40 BUN 54 mg/dL (7-18) H 08/23/18 05:40 Creatinine 2.0 mg/dL (0.55-1.3) H 08/23/18 05:40 Creat Clearance w eGFR 31.76 (>60) 08/23/18 05:40 Random Glucose 110 mg/dL (74-106) H 08/23/18 05:40 Lactic Acid 1.7 mmol/L (0.4-2.0) 08/22/18 20:25 Calcium 9.0 mg/dL (8.5-10.1) 08/23/18 05:40 Total Bilirubin 0.4 mg/dL (0.2-1) 08/22/18 16:55 AST 21 U/L (15-37) 08/22/18 16:55 ALT 22 U/L (13-61) 08/22/18 16:55 Alkaline Phosphatase 95 U/L (45-117) 08/22/18 16:55 CK-MB (CK-2) 3.1 ng/mL (0.5-3.6) 08/22/18 16:55 Troponin I < 0.02 ng/ml (0.00-0.05) 08/22/18 16:55 B-Natriuretic Peptide 2404.2 pg/ml (5-450) H 08/22/18 16:55 Total Protein 7.5 g/dl (6.4-8.2) 08/22/18 16:55 Albumin 3.7 g/dl (3.4-5.0) 08/22/18 16:55 Urine Color Yellow 08/22/18 17:45 Urine Appearance Clear 08/22/18 17:45 Urine pH 7.0 (5.0-8.0) D 08/22/18 17:45 Ur Specific [place] 1.008 (1.010-1.035) L 08/22/18 17:45 Urine Protein Negative (NEGATIVE) 08/22/18 17:45 Urine Glucose (UA) Negative (NEGATIVE) 08/22/18 17:45 Urine Ketones Negative (NEGATIVE) 08/22/18 17:45 Urine Blood Negative (NEGATIVE) 08/22/18 17:45 Urine Nitrite Negative (NEGATIVE) 08/22/18 17:45 Urine Bilirubin Negative (NEGATIVE) 08/22/18 17:45 Urine Urobilinogen 0.2 mg/dL (0.2-1.0) 08/22/18 17:45 Ur Leukocyte Esterase Negative (NEGATIVE) 08/22/18 17:[address]d 09/2014: AAA 5.[address] abd03/2014: AAA 5.[address] abd 03/2013: AAA 5.3 cm abd us 01/2016: 4.[address] chest 06/2016: 5.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 CT chest 05/2017: desd aorta 5.7 cm, ascd aorta 4.6 cm, no sig change from 2016 per report carotids 09/2014: b/l dz r>L, (right 60-79%) carotids 12/2015: jess >70% (same location as prior stenosis seen 09/2014), no sig stenosis on left carotids 04/2017: 80-99% jess, no sig stenosis on left cta 2006: patent knowles/shaggy, occluded svg to OM mibi 09/2008: no ischemia mibi 05/2011: possible minimal inferolateral ischemia echo 08/2014: nl lv s/f, lae, nl rv s/f, rvsp 40, nl bio avr fcn, mild mr, mod tr echo 09/2015: nl lv/rv, mild lae, nl bio avr, mild tr, mild-mod phtn echo 06/2016 ([facility]): normal LV and RV size and fxn; mod ricardo. 1+ MR. bio avr well -seated. mod-severe TR with severe pulm HTN. asc ao 4.8 cm echo 05/2017 ([facility]): mod lve, nl lvef, rv tds, sev ricardo, mild-mod mr, sev tr, sev phtn, no AI/ 2 wk event monitor 04/2017: afib, rate controlled.eg ebody EKG: afib, RBBB, no ischemic changes a/p: 87 m hx pafib (on coumadin), cad s/p inferior CT 1997, s/p cabg x3 1983 and 1997, bio avr (1983 and 1997), hld, htn, tia, s/p right cea, pad with severe bl le dz s/p stenting and bypass, AAA, DM, ckd (1.3-1.7), obesity, dvt, hcv, p/w edema lower ext edema, acute diastolic HF - nl EF 05/2017 - BNP 2440, similar to prior - improving with IV lasix 100 mg BID - monitor Cr, lytes, daily standing weights - echo pending cellulitis - on abx manage per ID Pafib (on coumadin): - Rate controlled on BB. - AC with coumadin. Dosing per inr. cad s/p inferior CT 1997, s/p cabg x3 1983 and 1997: -stable, no angina, nl lvef -cont medical management s/p bio avr - nl function on 05/2017 echo - echo pending hld: -cont statin htn: - cont home meds - amlodipine held for lower ext edema pad, s/p cea, s/p le bypass/stenting: - Claudication is stable. Pt has been evaluated by several vascular surgeons in the past and his le dz is deemed non revascularizable. Recent carotid US shows stable disease, no new sxs. Continue current cardiac meds. AAA: - Has been stable on serial non con chest/abd ct's over the past years. Has seen vascular in past and they felt he is not a surgical candidate due to high risk. - Continue bb, statin.
--- NOTE | 2018-08-23 16:10 | PN ---
Progress Note (short form) - Note Progress Note: ID CONSULT DICTATED CELLULITIS L LE HX AVR PCN ALLERGY CKD LACTIC ACIDOSIS AWAIT C/S CEFTRIAXONE + VANCO X 1 PT HAS TOLERATED CEPHALOSPORINS IN PAST
--- NOTE | 2018-08-23 16:54 | PN ---
Progress Note (short form) - Note Progress Note: Patient admitted for left LE cellulitis and wound seen and examined at bedside. Patient stated his left LE became red with increasing pain from Thursday into thursday. He noticed a blister on the left medial aspect of his lower calf which ruptured thursday and he came to the hospital after the pain became so bad that he could not walk. He denies any CP, SOB, N/V/D fever or chills. Vital Signs Temp 97.9 F 08/23/18 14:15 Pulse 72 08/23/18 14:15 Resp 18 08/23/18 14:15 BP 160/92 08/23/18 14:15 Pulse Ox 99 08/23/18 13:23 Intake & Output 08/22/18 08/23/18 08/23/18 23:59 11:59 23:59 Weight 189 lb 149 lb 8 oz Other: Voiding Method Toilet Urinal Height 5 ft 4 in 5 ft 4 in Body Mass Index (BMI) 32.4 25.6 Weight Measurement Method Standing Scale Weight Measurement Method Est/Stated by Patient CBC, BMP 08/22/18 16:55 08/23/18 05:40 PE: A&Ox3, NAD unlabored resp on 2LNC Left LE with diffuse cellulitis over mid to distal 3rd calf extending medially, with stage 2 superficial venous stasis ulcer @ 6cmX 2.5cm, beeft red base, surrounding tissue cellulitic, no actie d/c or foul odor. + signal on doppler over DP and PT, foot warm and well perfused with no other wounds or lesions/ rashes seen Right LE with chroinc skin changes throughout, no lesions or wounds. foot warm and perfused, no wounds, no signal on doppler of DP or PT. Problem List - Problems (1) Venous stasis Assessment/Plan: Patient with chronic venous stasis and hx of PAD with venous stasis ulcer of left LE-stable, no evidence for vascular intervention 1) bacitracin to left LE wound daily 2) abram wraps-compression for b/l LE daily 3) OOB as tolerated 4) ABX per ID 5) Follow up with Dr Arguelles in wound care clinic for formal work up Evaluation and plan discussed with Dr Arguelles Code(s): I87.8 - OTHER SPECIFIED DISORDERS OF VEINS
[2018-08-23 16:59] LABS: INR 2.57 (0.83-1.09); PROTHROMBIN TIME (PATIENT) 30.6 SEC (9.7-13.0)
[2018-08-23] MEDS ORDERED: VANCOMYCIN 1,000 MG in DEXTROSE 5%-WATER - 250 ML IVPB ONE (17:00)
[2018-08-23] MEDS ORDERED: BACITRACIN 15 GM TUBE TOPICAL OINTMENT TP SCH (17:00)
[2018-08-23] MEDS ORDERED: DEXTROSE 5%-WATER 100 ML IVPB ONE (17:44)
[2018-08-23] MEDS: CEFTRIAXONE 2 GM in DEXTROSE 5%-WATER 100 ML IVPB SCH (17:50)
[2018-08-23] MEDS: WARFARIN NA 2 MG TABLET (UD) PO SCH (17:50)
[2018-08-23] MEDS ORDERED: guaiFENesin/D-METHORPHAN HB 10 ML UNIT-DOSE CUPS PO ONE (18:26)
--- NOTE | 2018-08-23 19:00 | CONS ---
INFECTIOUS DISEASE CONSULTATION DATE OF CONSULTATION: DATE OF DICTATION: 08/23/2018 The patient is an 87-year-old male with history of aortic valve replacement and PENICILLIN allergy, evaluated for cellulitis of the left lower extremity. Patient reports developing a bullous lesion on his left calf, which spontaneously ruptured. He reports seeing bloody fluid draining. He subsequently noted worsening pain, swelling, and erythema of his left calf area. He was admitted to the hospital where he was treated with vancomycin and ceftriaxone for cellulitis of the leg. He denies any traumatic injury. No insect or animal bites or scratches. He has had a history of skin and soft tissue infections in the past including a history of osteomyelitis years ago for which he required long-term IV antibiotic therapy. Review of previous cultures was positive for coagulase-negative staphylococcus and pseudomonas. PAST MEDICAL HISTORY: Positive for coronary artery disease, valvular heart disease, hypertension, hyperlipidemia, COPD, history of TIA. PAST SURGICAL HISTORY: Status post coronary artery bypass graft, aortic valve replacement in 1997. ALLERGIES: PENICILLIN. Patient is unaware of the nature of the allergy. He states it happened many years ago, believes it was a rash. No history of anaphylaxis. MEDICATIONS: Include Symbicort, Hytrin, Cozaar, Coumadin, Tenormin, Apresoline, Lipitor, Lasix. SOCIAL HISTORY: Lives at home with his significant other. He is a former smoker. SYSTEMS REVIEW: Neurologic: No loss of consciousness, seizure activity, focal weakness. Cardiac: Negative chest pain or palpitations. Respiratory: Negative cough or sputum production. Gastrointestinal: Negative vomiting or diarrhea. Genitourinary: Negative for urinary tract infection. LABORATORY DATA: White count 7.5, hematocrit 32.0, platelet count 157. BUN 54, creatinine 2.0. Lactic acid 2.3. Liver enzymes normal. Urinalysis negative. Blood and urine cultures are pending. PHYSICAL EXAMINATION: General: He is awake and alert, in no acute distress. Vital Signs: Temperature 97.9; blood pressure 166/92; pulse 72, regular; respirations 18 per minute. HEENT: Sclerae anicteric. Heart: Sounds S1, S2. A 2/6 pansystolic murmur. Lungs: Clear. Abdomen: Obese, soft, nontender. Lower Extremities: Bilateral lower extremity chronic venous stasis dermatitis. There is a 4 x 5 cm oval-shaped, superficial ulcer present on the left calf with granulation tissue base with bloody drainage. There is a surrounding area of erythema, warmth, and tenderness. IMPRESSION: 1. Cellulitis, left lower extremity. 2. History of aortic valve replacement. 3. PENICILLIN allergy. 4. Chronic kidney disease. 5. Lactic acidosis. Await culture results. Empiric antibiotic coverage with ceftriaxone plus stat dose vancomycin. Local wound care. Will obtain Doppler exam of the left lower extremity. Patient has tolerated cephalosporins in the past without adverse reaction. DONAVON CROCKER M.D. [id number]
[2018-08-23] MEDS: ATORVASTATIN CA 20 MG TABLET (FP) PO SCH (22:05)
[2018-08-24] MEDS: ALBUTEROL SO4 2.5/IPRATROPIUM 0.5 INH SOL 3 ML VIAL.NEB. NEB SCH ×7 (00:45→20:30)
[2018-08-24] MEDS: POTASSIUM CHLORIDE TABS 20 MEQ TABLET.ER (FP) PO SCH ×4 (05:44→21:07)
[2018-08-24] MEDS: FUROSEMIDE 40 MG/4 ML INJECTABLE VIAL IVPB SCH ×2 (05:44→14:44)
[2018-08-24] MEDS: DOCUSATE SODIUM 100 MG CAPSULE (FP) PO SCH ×3 (05:44→21:24)
[2018-08-24 07:48] LABS: EOS % 5.5 % (0-4.5); HEMATOCRIT 29.4 % (35.4-49); LYMPH % 13.5 % (8-40); MCH 30.5 pg (25.7-33.7); MEAN CELL VOLUME 89.7 fl (80-96); MONO % 10.5 % (3.8-10.2); NEUT % 69.5 % (42.8-82.8); PLATELET COUNT 137 K/MM3 (134-434); RBC 3.28 M/mm3 (4.00-5.60); RDW 18.6 % (11.9-15.9); WHITE BLOOD COUNT 6.2 K/mm3 (4.0-10.0)
[2018-08-24 08:07] LABS: INR 2.35 (0.83-1.09)
[2018-08-24 08:23] LABS: ALBUMIN 3.4 g/dl (3.4-5.0); ALK PHOS 83 U/L (45-117); ANION GAP 9 MMOL/L (8-16); BILIRUBIN,TOTAL 0.5 mg/dL (0.2-1); BLOOD UREA NITROGEN 58 mg/dL (7-18); CALCIUM 8.5 mg/dL (8.5-10.1); CHLORIDE 93 mmol/L (98-107); CO2 35 mmol/L (21-32); CREATININE 2.1 mg/dL (0.55-1.3); GLUCOSE,RANDOM 108 mg/dL (74-106); MAGNESIUM 2.2 mg/dL (1.8-2.4); SGOT/AST 16 U/L (15-37); SGPT/ALT 18 U/L (13-61); SODIUM 137 mmol/L (136-145)
[2018-08-24] MEDS: oxyCODONE HCL 5 MG TABLET PO PRN (08:58)
[2018-08-24] MEDS: BACITRACIN 15 GM TUBE TOPICAL OINTMENT TP SCH (09:03)
--- NOTE | 2018-08-24 09:53 | PN ---
Progress Note, Physician - Current Medication List Current Medications: Active Medications Acetaminophen (Tylenol -) 650 mg PO Q6H PRN PRN Reason: PAIN LEVEL 1-5 Last Admin: 08/23/18 09:15 Dose: 650 mg Albuterol/Ipratropium (Duoneb -) 1 amp NEB RQ4H [facility] Last Admin: 08/24/18 05:00 Dose: 1 amp Atenolol (Tenormin -) 25 mg PO BID [facility] Last Admin: 08/23/18 22:05 Dose: 25 mg Atorvastatin Calcium (Lipitor -) 20 mg PO HS [facility] Last Admin: 08/23/18 22:05 Dose: 20 mg Bacitracin (Bacitracin -) 1 applic TP BID [facility] Last Admin: 08/24/18 09:03 Dose: 1 applic Budesonide/Formoterol Fumarate (Symbicort 160/4.5mcg -) 1 puff IH BID [facility] Last Admin: 08/23/18 22:11 Dose: 1 puff Cholecalciferol (Vitamin D3 -) 2,000 unit PO DAILY [facility] Last Admin: 08/23/18 09:14 Dose: 2,000 unit Docusate Sodium (Colace -) 100 mg PO TID [facility] Last Admin: 08/24/18 05:44 Dose: 100 mg Furosemide (Lasix Injection -) 100 mg IVPB BIDLASIX [facility] Last Admin: 08/24/18 05:44 Dose: 100 mg Hydralazine HCl (Apresoline -) 25 mg PO BID [facility] Last Admin: 08/23/18 22:05 Dose: 25 mg Ceftriaxone Sodium 2 gm/ (Dextrose) 100 mls @ 100 mls/hr IVPB DAILY [facility]; Protocol Last Admin: 08/23/18 17:50 Dose: 100 mls/hr Losartan Potassium (Cozaar -) 50 mg PO DAILY [facility] Last Admin: 08/23/18 09:14 Dose: 50 mg Melatonin (Melatonin) 5 mg PO HS PRN PRN Reason: INSOMNIA Oxycodone HCl (Roxicodone -) 5 mg PO Q6H PRN PRN Reason: PAIN LEVEL 6-10 Last Admin: 08/24/18 08:58 Dose: 5 mg Potassium Chloride (K-Dur -) 20 meq PO TID [facility] Last Admin: 08/24/18 05:44 Dose: 20 meq Terazosin HCl (Hytrin -) 2 mg PO DAILY [facility] Tiotropium [place] (Spiriva Respimat) 2 puff IH DAILY [facility] Last Admin: 08/23/18 09:16 Dose: Not Given Warfarin Sodium (Coumadin -) 2 mg PO DAILY@1800 [facility] Last Admin: 08/23/18 17:50 Dose: 2 mg - Objective Vital Signs: Vital Signs Temperature 98.4 F 08/24/18 06:00 Pulse Rate 54 L 08/24/18 06:00 Respiratory Rate 18 08/24/18 06:00 Blood Pressure 141/71 08/24/18 06:00 O2 Sat by Pulse Oximetry (%) 97 08/24/18 02:42 Cardiovascular: Yes: S1, S2 Respiratory: Yes: Regular, Rales Gastrointestinal: Yes: Normal Bowel Sounds, Soft Edema: Yes Wound/Incision: Yes: Dressing Removed, Reddened, Excoriated Labs: CBC, BMP 08/24/18 07:00 08/24/18 07:00 INR, PTT INR 2.35 (0.83-1.09) H 08/24/18 07:00 Assessment/Plan - Problems (1) Leg wound, left Assessment/Plan: wound care team bacitracin dry dressing ID Code(s): S81.802A - UNSPECIFIED OPEN WOUND, LEFT LOWER LEG, INITIAL ENCOUNTER (2) Acute on chronic diastolic (congestive) heart failure Assessment/Plan: iv lasix bid echo cardiology losartan tenormin Code(s): I50.33 - ACUTE ON CHRONIC DIASTOLIC (CONGESTIVE) HEART FAILURE (3) Chronic renal insufficiency Assessment/Plan: renal consult Code(s): N18.9 - CHRONIC KIDNEY DISEASE, UNSPECIFIED Qualifiers: Chronic kidney disease stage: unspecified stage Qualified Code(s): N18.9 - Chronic kidney disease, unspecified (4) Electrolyte abnormality Assessment/Plan: magneisum and potasium Code(s): E87.8 - OTH DISORDERS OF ELECTROLYTE AND FLUID BALANCE, NEC (5) COPD (chronic obstructive pulmonary disease) Assessment/Plan: bronchodilators Code(s): J44.9 - CHRONIC OBSTRUCTIVE PULMONARY DISEASE, UNSPECIFIED
[2018-08-24] MEDS: TIOTROPIUM BROMIDE 2.5 MCG (SPIRIVA) RESPIMAT INHALER IH SCH ×2 (10:00→16:20)
[2018-08-24] MEDS ORDERED: PT OWN MED DRAWER 7, Y5N ONE (10:47)
[2018-08-24] MEDS ORDERED: DEXTROSE 5%-WATER 100 ML IVPB ONE (10:48)
[2018-08-24] MEDS: LOSARTAN POTASSIUM 50 MG TABLET (FP) PO SCH (10:51)
[2018-08-24] MEDS: hydrALAZINE HCL 25 MG TABLET (FP) PO SCH ×2 (10:51→21:24)
[2018-08-24] MEDS: ATENOLOL 25 MG TABLET (FP) PO SCH ×2 (10:51→21:24)
[2018-08-24] MEDS: CEFTRIAXONE 2 GM in DEXTROSE 5%-WATER 100 ML IVPB SCH (10:51)
[2018-08-24] MEDS: CHOLECALCIFEROL (VITAMIN D3) 1,000 UNIT TABLET (FP) PO SCH (10:51)
[2018-08-24] MEDS: TERAZOSIN HCL 1 MG CAPSULE PO SCH (10:51)
[2018-08-24] MEDS: BUDESONIDE/FORMETEROL FUMARATE 160/4.5 mcg INHALER IH SCH ×2 (10:53→21:26)
[2018-08-24] MEDS ORDERED: POTASSIUM CHLORIDE TABS 20 MEQ TABLET.ER (FP) PO ONE (12:15)
--- NOTE | 2018-08-24 12:50 | ECHO ---
Version: 1 Name: CARL ESCOTO Exam: Adult Echocardiogram Study Date: 08/24/2018, 10:04 AM Age: 87 Years MMode/2D Measurements & Calculations IVSd: 1.24 cm LVIDs: 3.0 cm LVIDd: 4.2 cm LVPWd: 1.08 cm LAV (MOD-bp): 81.8 ml LVOT diam: 2.00 cm Ao root diam: 2.7 cm LA dimension: 4.5 cm Doppler Measurements & Calculations MV E max carloz: 118.0 cm/sec Med E/e': 18.4 MV A max carloz: 46.6 cm/sec Med Peak E' Carloz: 6.4 cm/sec MV E/A: 2.5 Lat E/e': 10.0 Lat Peak E' Carloz: 11.7 cm/sec MR max P.8 mmHg Ao max P.8 mmHg SILVIA(I,D): 1.60 cm Ao mean P.0 mmHg LV V1 mean: 68.5 cm/sec Ao V2 max: 209.4 cm/sec LV V1 mean P.20 mmHg TR max carloz: 331.2 cm/sec TR max P.0 mmHg Procedure The study was technically good with many images being of high quality. Left Ventricle Posterolateral wall hypokinesis. The left ventricle is normal in size. Ejection Fraction = 55%. Right Ventricle The right ventricle is normal in size and function. Atria The left atrium is moderately dilated. The right atrium is mildly dilated. Mitral Valve The mitral valve is normal in structure and function. There is mild mitral regurgitation. Tricuspid Valve The tricuspid valve is normal in structure and function. There is mild tricuspid regurgitation. Righ t ventricular systolic pressure is elevated at 49 mmhg. There is mild pulmonary hypertension. Assuming the RA pressure is 5 mmHg. Aortic Valve Normally functioning bioprosthetic Aortic valve. Pulmonic Valve The pulmonic valve is not well seen, but is grossly normal. Great Vessels The aortic root is normal size. Pericardium/Pleura There is no pericardial effusion. Summary Statements Posterolateral wall hypokinesis. The left ventricle is normal in size. Ejection Fraction = 55%. The right ventricle is normal in size and function. The left atrium is moderately dilated. There is mild pulmonary hypertension. Normally functioning bioprosthetic Aortic valve. Michael Arcos 08/24/2018, 11:50 AM Ordering Physician: Oriana Lees Performed By: Maddy Baker
--- NOTE | 2018-08-24 16:15 | CONSULT ---
Consult - text type - Consultation Consultation Note: Renal consult for CKD This is a 87 year old gentleman with hx of CKD (baseline Cr ~1.5-2), COPD, CHF, CAD s/p CABG, hyperlipidemia, DVT, Hypertension, DM who presented with left LE wound. Pt had a blister on his leg that burst and then had subsequent wound that was not getting better. Denies any fever, chills, N/V/D, CP, SOB, VARMA, or lethargy. Making urine w/o difficulty. On diuretics at home. No NSAID use, no recent contrast exposure. Last Cr noted in mann office was ~2. PMhx: as above Allergies: PCN Social Hx: No T/A/D ROS: as per HPI Home Medications Medication Instructions Recorded Albuterol 2.5/Ipratropium 0.5 1 neb NEB Q4H 06/16/17 [Duoneb -] Amlodipine Besylate [Norvasc -] 5 mg PO DAILY 06/16/17 Ascorbic Acid [Vitamin C] 500 mg PO DAILY 06/16/17 Atenolol [Tenormin -] 25 mg PO BID 06/16/17 Atorvastatin Ca [Lipitor] 20 mg PO HS 06/16/17 Bifidobacterium Infantis [Align] 10.5 mg PO DAILY 06/16/17 Budesonide/Formeterol Fumarate 1 inh PO BID 06/16/17 [SYMBICORT 160/4.5mcg -] Cholecalciferol (Vitamin D3) 2,000 unit PO DAILY 06/16/17 [Vitamin D3] Cyanocobalamin [Vitamin B12 -] 100 mcg PO DAILY 06/16/17 Docusate Sodium [Colace] 100 mg PO TID 06/16/17 Furosemide [Lasix] 40 mg PO BID 06/16/17 Ipratropium [place] [Atrovent Hfa] 17 mcg IH DAILY 06/16/17 Losartan Potassium 50 mg PO DAILY 06/16/17 Potassium Chloride 20 meq PO BID 06/16/17 Terazosin HCl 2 mg PO DAILY 06/16/17 Warfarin Sodium [Coumadin] 2 mg PO DAILY 06/16/17 Furosemide [Lasix -] 80 mg PO BID@0600,1400 tablet 06/25/17 Potassium Chloride [K-Dur -] 20 meq PO TID tablet.er 02/08/18 Prednisone 10 mg PO DAILY #40 tab.ds.pk 06/25/17 hydrALAZINE HCL [Apresoline -] 25 mg PO BID #60 tablet 06/25/17 Vital Signs Temperature 97.7 F 08/24/18 14:46 Pulse Rate 70 08/24/18 14:46 Respiratory Rate 22 H 08/24/18 14:46 Blood Pressure 139/78 08/24/18 14:46 O2 Sat by Pulse Oximetry (%) 97 08/24/18 02:42 Intake & Output 08/21/18 08/22/18 08/23/18 08/24/18 23:59 23:59 23:59 23:59 Intake Total 535 Output Total 550 Balance -15 Weight 85.729 kg 67.812 kg 85.139 kg NAD awake and alert neck supple, no JVD RRR, no M/R Dec BS, but no rales or wheeze soft NT/ND no LE edema, clubbing or cyanosis CBC, BMP 08/24/18 07:00 08/24/18 07:00 Current Medications Acetaminophen (Tylenol -) 650 mg PO Q6H PRN PRN Reason: PAIN LEVEL 1-5 Last Admin: 08/23/18 09:15 Dose: 650 mg Albuterol/Ipratropium (Duoneb -) 1 amp NEB RQ4H [facility] Last Admin: 08/24/18 12:53 Dose: 1 amp Atenolol (Tenormin -) 25 mg PO BID [facility] Last Admin: 08/24/18 10:51 Dose: 25 mg Atorvastatin Calcium (Lipitor -) 20 mg PO HS [facility] Last Admin: 08/23/18 22:05 Dose: 20 mg Bacitracin (Bacitracin -) 1 applic TP BID [facility] Last Admin: 08/24/18 09:03 Dose: 1 applic Budesonide/Formoterol Fumarate (Symbicort 160/4.5mcg -) 1 puff IH BID [facility] Last Admin: 08/24/18 10:53 Dose: 1 puff Cholecalciferol (Vitamin D3 -) 2,000 unit PO DAILY [facility] Last Admin: 08/24/18 10:51 Dose: 2,000 unit Docusate Sodium (Colace -) 100 mg PO TID [facility] Last Admin: 08/24/18 14:41 Dose: 100 mg Furosemide (Lasix Injection -) 100 mg IVPB BIDLASIX [facility] Last Admin: 08/24/18 14:44 Dose: 100 mg Hydralazine HCl (Apresoline -) 25 mg PO BID [facility] Last Admin: 08/24/18 10:51 Dose: 25 mg Ceftriaxone Sodium 2 gm/ (Dextrose) 100 mls @ 100 mls/hr IVPB DAILY [facility]; Protocol Last Admin: 08/24/18 10:51 Dose: 100 mls/hr Losartan Potassium (Cozaar -) 50 mg PO DAILY [facility] Last Admin: 08/24/18 10:51 Dose: 50 mg Melatonin (Melatonin) 5 mg PO HS PRN PRN Reason: INSOMNIA Oxycodone HCl (Roxicodone -) 5 mg PO Q6H PRN PRN Reason: PAIN LEVEL 6-10 Last Admin: 08/24/18 08:58 Dose: 5 mg Potassium Chloride (K-Dur -) 20 meq PO TID [facility] Last Admin: 08/24/18 05:44 Dose: 20 meq Terazosin HCl (Hytrin -) 2 mg PO DAILY [facility] Last Admin: 08/24/18 10:51 Dose: 2 mg Tiotropium [place] (Spiriva Respimat) 2 puff IH DAILY [facility] Last Admin: 08/23/18 09:16 Dose: Not Given Warfarin Sodium (Coumadin -) 2 mg PO DAILY@1800 [facility] Last Admin: 08/23/18 17:50 Dose: 2 mg This is a 87 year old gentleman with hx of CKD (baseline Cr ~1.5-2), COPD, CHF, CAD s/p CABG, hyperlipidemia, DVT, Hypertension, DM who presented with left LE wound. #LE wound #LE edema #CKD stage 3 #CAD #COPD #Hypertension Continue wound care as per primary team and abx as per ID renal function near baseline at this time continue Lasix 80mg BID and titrate to evolemia continue Losartan, Atenolol and hydralazine will trend renal function and electrolytes daily avoid nsaids, IV contrast and nephrotoxins Dose all meds for CrCl ~30 Thank you Ko Adler DO
--- NOTE | 2018-08-24 16:38 | PN ---
Progress Note, Physician Chief Complaint: sob History of Present Illness: sob not improving much. was quite sob earlier while at rest--now much improved. states he is not urinating much (maybe 2x) after lasix injection. + wheezing, cough as well legs wrapped--? still swollen denies cp no palpit ex cigs - Current Medication List Current Medications: Active Medications Acetaminophen (Tylenol -) 650 mg PO Q6H PRN PRN Reason: PAIN LEVEL 1-5 Last Admin: 08/23/18 09:15 Dose: 650 mg Albuterol/Ipratropium (Duoneb -) 1 amp NEB RQ4H [facility] Last Admin: 08/24/18 16:22 Dose: 1 amp Atenolol (Tenormin -) 25 mg PO BID [facility] Last Admin: 08/24/18 10:51 Dose: 25 mg Atorvastatin Calcium (Lipitor -) 20 mg PO HS [facility] Last Admin: 08/23/18 22:05 Dose: 20 mg Bacitracin (Bacitracin -) 1 applic TP BID [facility] Last Admin: 08/24/18 09:03 Dose: 1 applic Budesonide/Formoterol Fumarate (Symbicort 160/4.5mcg -) 1 puff IH BID [facility] Last Admin: 08/24/18 10:53 Dose: 1 puff Cholecalciferol (Vitamin D3 -) 2,000 unit PO DAILY [facility] Last Admin: 08/24/18 10:51 Dose: 2,000 unit Docusate Sodium (Colace -) 100 mg PO TID [facility] Last Admin: 08/24/18 14:41 Dose: 100 mg Furosemide (Lasix Injection -) 100 mg IVPB BIDLASIX [facility] Last Admin: 08/24/18 14:44 Dose: 100 mg Hydralazine HCl (Apresoline -) 25 mg PO BID [facility] Last Admin: 08/24/18 10:51 Dose: 25 mg Ceftriaxone Sodium 2 gm/ (Dextrose) 100 mls @ 100 mls/hr IVPB DAILY [facility]; Protocol Last Admin: 08/24/18 10:51 Dose: 100 mls/hr Losartan Potassium (Cozaar -) 50 mg PO DAILY [facility] Last Admin: 08/24/18 10:51 Dose: 50 mg Melatonin (Melatonin) 5 mg PO HS PRN PRN Reason: INSOMNIA Oxycodone HCl (Roxicodone -) 5 mg PO Q6H PRN PRN Reason: PAIN LEVEL 6-10 Last Admin: 08/24/18 08:58 Dose: 5 mg Potassium Chloride (K-Dur -) 20 meq PO TID [facility] Last Admin: 08/24/18 05:44 Dose: 20 meq Terazosin HCl (Hytrin -) 2 mg PO DAILY [facility] Last Admin: 08/24/18 10:51 Dose: 2 mg Tiotropium [place] (Spiriva Respimat) 2 puff IH DAILY [facility] Last Admin: 08/24/18 16:20 Dose: 2 puff Warfarin Sodium (Coumadin -) 2 mg PO DAILY@1800 [facility] Last Admin: 08/23/18 17:50 Dose: 2 mg - Objective Vital Signs: Vital Signs Temperature 97.7 F 08/24/18 14:46 Pulse Rate 70 08/24/18 14:46 Respiratory Rate 22 H 08/24/18 14:46 Blood Pressure 139/78 08/24/18 14:46 O2 Sat by Pulse Oximetry (%) 97 08/24/18 02:42 Constitutional: Yes: No Distress, Calm Eyes: No: Sclera Icterus HENT: No: Nasal Congestion Cardiovascular: Yes: Pulse Irregular, JVD, S1, S2, Other (PMI non diplaced). No : Gallop, Murmur Respiratory: Yes: CTA Bilaterally. No: Accessory Muscle Use, Rales, Wheezes Gastrointestinal: Yes: Normal Bowel Sounds, Soft. 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 CT chest 05/2017: desd aorta 5.7 cm, ascd aorta 4.6 cm, no sig change from 2016 per report carotids 09/2014: b/l dz r>L, (right 60-79%) carotids 12/2015: jess >70% (same location as prior stenosis seen 09/2014), no sig stenosis on left carotids 04/2017: 80-99% jess, no sig stenosis on left cta 2006: patent knowles/shaggy, occluded svg to OM mibi 09/2008: no ischemia mibi 05/2011: possible minimal inferolateral ischemia echo 08/2014: nl lv s/f, lae, nl rv s/f, rvsp 40, nl bio avr fcn, mild mr, mod tr echo 09/2015: nl lv/rv, mild lae, nl bio avr, mild tr, mild-mod phtn echo 06/2016 ([facility]): normal LV and RV size and fxn; mod ricardo. 1+ MR. bio avr well -seated. mod-severe TR with severe pulm HTN. asc ao 4.8 cm echo 05/2017 ([facility]): mod lve, nl lvef, rv tds, sev ricardo, mild-mod mr, sev tr, sev phtn, no AI/ echo 08/24/18: nl LV size/EF. + posterolateral hypokinesis. nl RV. L/NÉSTOR. nl bioAVR fxn. mild MR/TR. mild pulm HTN (49 mmHg). 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 today's accurate 187. home/office wts were running 189-190. renal fxn essentially stable. reports poor UOP response subjectively to the high dose lasix he's getting. remains with sob and distended neck veins. echo not c/w RV failure (RV reportedly normal). rec 2L daily fluid restriction, and collect all urine for accurate UOP. will give dose of metolazone 2.5 with am lasix--monitor lytes/renal fxn - cellulitis abx per pmd, ID Pafib (on coumadin): - Rate controlled on BB. - AC with coumadin. Dosing per inr. cad s/p inferior [place] 1997, s/p cabg x3 1983 and 1997: -stable, no angina, nl lvef -cont medical management s/p bio avr - nl function on echo CKD: -baseline creatinine 1.7-2.0 -stable here hld: -cont statin htn: - cont home meds - amlodipine held for lower ext edema pad, s/p cea, s/p le bypass/stenting: - Claudication is stable. Pt has been evaluated by several vascular surgeons in the past and his le dz is deemed non revascularizable. Recent carotid US shows stable disease, no new sxs. Continue current cardiac meds. AAA: - Has been stable on serial non con chest/abd ct's over the past years. Has seen vascular in past and they felt he is not a surgical candidate due to high risk. - Continue bb, statin, aggressive bp control.
[2018-08-24] MEDS: WARFARIN NA 2 MG TABLET (UD) PO SCH (17:53)
[2018-08-24] MEDS ORDERED: SODIUM CHLORIDE NASAL SPRAY 44 ML BOTTLE NS PRN (18:03)
[2018-08-24] MEDS: ATORVASTATIN CA 20 MG TABLET (FP) PO SCH (21:24)
[2018-08-24] MEDS: guaiFENesin 600 MG TABLET.ER (FP) PO SCH (21:24)
[2018-08-24] MEDS: LATANOPROST 0.005% OPHTH SOLN 2.5ML BOTTLE OU SCH (21:27)
[2018-08-25] MEDS: ALBUTEROL SO4 2.5/IPRATROPIUM 0.5 INH SOL 3 ML VIAL.NEB. NEB SCH ×6 (00:15→22:20)
[2018-08-25] MEDS: BACITRACIN 15 GM TUBE TOPICAL OINTMENT TP SCH ×3 (01:15→22:36)
[2018-08-25] MEDS: DOCUSATE SODIUM 100 MG CAPSULE (FP) PO SCH ×3 (05:29→22:35)
[2018-08-25] MEDS ORDERED: METOLAZONE 2.5 MG TABLET (FP) PO ONE (05:30)
[2018-08-25] MEDS: FUROSEMIDE 40 MG/4 ML INJECTABLE VIAL IVPB SCH ×2 (06:04→18:12)
[2018-08-25 06:48] LABS: BASO % 0.5 % (0-2.0); EOS % 5.1 % (0-4.5); HEMATOCRIT 28.3 % (35.4-49); HEMOGLOBIN 9.7 GM/dL (11.7-16.9); LYMPH % 10.9 % (8-40); MCH 30.6 pg (25.7-33.7); MCHC 34.3 g/dl (32.0-35.9); MEAN CELL VOLUME 89.2 fl (80-96); MEAN PLT VOLUME 8.4 fl (7.5-11.1); MONO % 9.9 % (3.8-10.2); NEUT % 73.6 % (42.8-82.8); PLATELET COUNT 117 K/MM3 (134-434); RBC 3.17 M/mm3 (4.00-5.60); RDW 18.5 % (11.9-15.9); WHITE BLOOD COUNT 5.5 K/mm3 (4.0-10.0)
[2018-08-25 07:08] LABS: ALBUMIN 3.2 g/dl (3.4-5.0); ALK PHOS 79 U/L (45-117); ANION GAP 7 MMOL/L (8-16); BILIRUBIN,TOTAL 0.4 mg/dL (0.2-1); BLOOD UREA NITROGEN 65 mg/dL (7-18); CALCIUM 7.9 mg/dL (8.5-10.1); CHLORIDE 96 mmol/L (98-107); CO2 35 mmol/L (21-32); CREATININE 2.1 mg/dL (0.55-1.3); GLUCOSE,RANDOM 96 mg/dL (74-106); MAGNESIUM 2.2 mg/dL (1.8-2.4); POTASSIUM 3.3 mmol/L (3.5-5.1); SGOT/AST 20 U/L (15-37); SGPT/ALT 19 U/L (13-61); SODIUM 138 mmol/L (136-145); TOT PROT 6.5 g/dl (6.4-8.2)
[2018-08-25] MEDS ORDERED: POTASSIUM CHLORIDE TABS 20 MEQ TABLET.ER (FP) PO ONE (09:33)
--- NOTE | 2018-08-25 09:34 | PN ---
Progress Note, Physician - Current Medication List Current Medications: Active Medications Acetaminophen (Tylenol -) 650 mg PO Q6H PRN PRN Reason: PAIN LEVEL 1-5 Last Admin: 08/23/18 09:15 Dose: 650 mg Albuterol/Ipratropium (Duoneb -) 1 amp NEB RQ4H [facility] Last Admin: 08/25/18 04:20 Dose: Not Given Atenolol (Tenormin -) 25 mg PO BID [facility] Last Admin: 08/24/18 21:24 Dose: 25 mg Atorvastatin Calcium (Lipitor -) 20 mg PO HS [facility] Last Admin: 08/24/18 21:24 Dose: 20 mg Bacitracin (Bacitracin -) 1 applic TP BID [facility] Last Admin: 08/25/18 01:15 Dose: 1 applic Budesonide/Formoterol Fumarate (Symbicort 160/4.5mcg -) 1 puff IH BID [facility] Last Admin: 08/24/18 21:26 Dose: 1 puff Cholecalciferol (Vitamin D3 -) 2,000 unit PO DAILY [facility] Last Admin: 08/24/18 10:51 Dose: 2,000 unit Docusate Sodium (Colace -) 100 mg PO TID [facility] Last Admin: 08/25/18 05:29 Dose: 100 mg Furosemide (Lasix Injection -) 100 mg IVPB BIDLASIX [facility] Last Admin: 08/25/18 06:04 Dose: 100 mg Guaifenesin (Mucinex -) 600 mg PO BID [facility] Last Admin: 08/24/18 21:24 Dose: 600 mg Hydralazine HCl (Apresoline -) 25 mg PO BID [facility] Last Admin: 08/24/18 21:24 Dose: 25 mg Ceftriaxone Sodium 2 gm/ (Dextrose) 100 mls @ 100 mls/hr IVPB DAILY [facility]; Protocol Last Admin: 08/24/18 10:51 Dose: 100 mls/hr Latanoprost (Xalatan 0.005% Eye Drops -) 1 drop OU HS [facility] Last Admin: 08/24/18 21:27 Dose: 1 drop Losartan Potassium (Cozaar -) 50 mg PO DAILY [facility] Last Admin: 08/24/18 10:51 Dose: 50 mg Melatonin (Melatonin) 5 mg PO HS PRN PRN Reason: INSOMNIA Oxycodone HCl (Roxicodone -) 5 mg PO Q6H PRN PRN Reason: PAIN LEVEL 6-10 Last Admin: 08/24/18 08:58 Dose: 5 mg Potassium Chloride (K-Dur -) 40 meq PO BID [facility] Last Admin: 08/24/18 21:07 Dose: Not Given Potassium Chloride (K-Dur -) 40 meq PO ONCE ONE Stop: 08/25/18 09:34 Sodium Chloride ([place]al [place] -) 2 spray NS Q4H PRN PRN Reason: NASAL CONGESTION Terazosin HCl (Hytrin -) 2 mg PO DAILY [facility] Last Admin: 08/24/18 10:51 Dose: 2 mg Tiotropium [place] (Spiriva Respimat) 2 puff IH DAILY [facility] Last Admin: 08/24/18 16:20 Dose: 2 puff Warfarin Sodium (Coumadin -) 2 mg PO DAILY@1800 [facility] Last Admin: 08/24/18 17:53 Dose: 2 mg - Objective Vital Signs: Vital Signs Temperature 98.0 F 08/25/18 06:00 Pulse Rate 59 L 08/25/18 06:00 Respiratory Rate 20 08/25/18 06:00 Blood Pressure 136/60 08/25/18 06:00 O2 Sat by Pulse Oximetry (%) 96 08/24/18 22:00 Cardiovascular: Yes: S1, S2 Respiratory: Yes: Regular, CTA Bilaterally Gastrointestinal: Yes: Normal Bowel Sounds, Soft Edema: Yes Wound/Incision: Yes: Dressing Dry and Intact Labs: CBC, BMP 08/25/18 06:00 08/25/18 06:00 INR, PTT INR 2.35 (0.83-1.09) H 08/24/18 07:00 Assessment/Plan - Problems (1) Leg wound, left Assessment/Plan: wound care team bacitracin dry dressing ID Code(s): S81.802A - UNSPECIFIED OPEN WOUND, LEFT LOWER LEG, INITIAL ENCOUNTER (2) Acute on chronic diastolic (congestive) heart failure Assessment/Plan: iv lasix bid echo cardiology losartan tenormin Code(s): I50.33 - ACUTE ON CHRONIC DIASTOLIC (CONGESTIVE) HEART FAILURE (3) Chronic renal insufficiency Assessment/Plan: renal consult Code(s): N18.9 - CHRONIC KIDNEY DISEASE, UNSPECIFIED Qualifiers: Chronic kidney disease stage: unspecified stage Qualified Code(s): N18.9 - Chronic kidney disease, unspecified (4) Electrolyte abnormality Assessment/Plan: magneisum and potasium Code(s): E87.8 - OTH DISORDERS OF ELECTROLYTE AND FLUID BALANCE, NEC (5) COPD (chronic obstructive pulmonary disease) Assessment/Plan: bronchodilators Code(s): J44.9 - CHRONIC OBSTRUCTIVE PULMONARY DISEASE, UNSPECIFIED
[2018-08-25 09:36] LABS: INR 2.04 (0.83-1.09); PROTHROMBIN TIME (PATIENT) 24.2 SEC (9.7-13.0)
[2018-08-25] MEDS ORDERED: DEXTROSE 5%-WATER 100 ML IVPB ONE (10:45)
[2018-08-25] MEDS: guaiFENesin 600 MG TABLET.ER (FP) PO SCH ×2 (10:58→22:36)
[2018-08-25] MEDS: hydrALAZINE HCL 25 MG TABLET (FP) PO SCH ×2 (10:59→22:35)
[2018-08-25] MEDS: LOSARTAN POTASSIUM 50 MG TABLET (FP) PO SCH (10:59)
[2018-08-25] MEDS: CHOLECALCIFEROL (VITAMIN D3) 1,000 UNIT TABLET (FP) PO SCH (10:59)
[2018-08-25] MEDS: ATENOLOL 25 MG TABLET (FP) PO SCH ×2 (10:59→22:36)
[2018-08-25] MEDS: POTASSIUM CHLORIDE TABS 20 MEQ TABLET.ER (FP) PO SCH ×2 (11:01→22:36)
[2018-08-25] MEDS: TERAZOSIN HCL 1 MG CAPSULE PO SCH (11:03)
[2018-08-25] MEDS: BUDESONIDE/FORMETEROL FUMARATE 160/4.5 mcg INHALER IH SCH ×2 (11:04→22:46)
[2018-08-25] MEDS: TIOTROPIUM BROMIDE 2.5 MCG (SPIRIVA) RESPIMAT INHALER IH SCH (12:27)
--- NOTE | 2018-08-25 12:34 | PN ---
Progress Note (short form) - Note Progress Note: Renal follow up for URBAN Pt seen and examined at the bedside awake and alert no acute complaints legs feel better no sob, cp, abd pain, N/V/D, fever, chills Vital Signs Temperature 98 F 08/25/18 11:09 Pulse Rate 76 08/25/18 11:09 Respiratory Rate 20 08/25/18 11:09 Blood Pressure 160/77 08/25/18 11:09 O2 Sat by Pulse Oximetry (%) 96 08/25/18 09:00 Intake & Output 08/22/18 08/23/18 08/24/18 08/25/18 23:59 23:59 23:59 23:59 Intake Total 1285 315 Output Total 830 380 Balance 455 -65 Weight 85.729 kg 67.812 kg 85.139 kg 86.137 kg NAD awake and alert neck supple, no JVD RRR, no M/R Dec BS, but no rales or wheeze soft NT/ND LE in wrap, trace edema CBC, BMP 08/25/18 06:00 08/25/18 06:00 Current Medications Acetaminophen (Tylenol -) 650 mg PO Q6H PRN PRN Reason: PAIN LEVEL 1-5 Last Admin: 08/23/18 09:15 Dose: 650 mg Albuterol/Ipratropium (Duoneb -) 1 amp NEB RQ4H [facility] Last Admin: 08/25/18 08:10 Dose: 1 amp Atenolol (Tenormin -) 25 mg PO BID [facility] Last Admin: 08/25/18 10:59 Dose: 25 mg Atorvastatin Calcium (Lipitor -) 20 mg PO HS [facility] Last Admin: 08/24/18 21:24 Dose: 20 mg Bacitracin (Bacitracin -) 1 applic TP BID [facility] Last Admin: 08/25/18 10:59 Dose: 1 applic Budesonide/Formoterol Fumarate (Symbicort 160/4.5mcg -) 1 puff IH BID [facility] Last Admin: 08/25/18 11:04 Dose: 1 puff Cholecalciferol (Vitamin D3 -) 2,000 unit PO DAILY [facility] Last Admin: 08/25/18 10:59 Dose: 2,000 unit Docusate Sodium (Colace -) 100 mg PO TID [facility] Last Admin: 08/25/18 05:29 Dose: 100 mg Furosemide (Lasix Injection -) 100 mg IVPB BIDLASIX [facility] Last Admin: 08/25/18 06:04 Dose: 100 mg Guaifenesin (Mucinex -) 600 mg PO BID [facility] Last Admin: 08/25/18 10:58 Dose: 600 mg Hydralazine HCl (Apresoline -) 25 mg PO BID [facility] Last Admin: 08/25/18 10:59 Dose: 25 mg Ceftriaxone Sodium 2 gm/ (Dextrose) 100 mls @ 100 mls/hr IVPB DAILY [facility]; Protocol Last Admin: 08/24/18 10:51 Dose: 100 mls/hr Latanoprost (Xalatan 0.005% Eye Drops -) 1 drop OU HS [facility] Last Admin: 08/24/18 21:27 Dose: 1 drop Losartan Potassium (Cozaar -) 50 mg PO DAILY [facility] Last Admin: 08/25/18 10:59 Dose: 50 mg Melatonin (Melatonin) 5 mg PO HS PRN PRN Reason: INSOMNIA Oxycodone HCl (Roxicodone -) 5 mg PO Q6H PRN PRN Reason: PAIN LEVEL 6-10 Last Admin: 08/24/18 08:58 Dose: 5 mg Potassium Chloride (K-Dur -) 40 meq PO BID [facility] Last Admin: 08/25/18 11:01 Dose: 40 meq Sodium Chloride ([place] -) 2 spray NS Q4H PRN PRN Reason: NASAL CONGESTION Terazosin HCl (Hytrin -) 2 mg PO DAILY [facility] Last Admin: 08/25/18 11:03 Dose: 2 mg Tiotropium [place] (Spiriva Respimat) 2 puff IH DAILY [facility] Last Admin: 08/25/18 12:27 Dose: 2 puff Warfarin Sodium (Coumadin -) 2 mg PO DAILY@1800 [facility] Last Admin: 08/24/18 17:53 Dose: 2 mg This is a 87 year old gentleman with hx of CKD (baseline Cr ~1.5-2), COPD, CHF, CAD s/p CABG, hyperlipidemia, DVT, Hypertension, DM who presented with left LE wound. #LE wound #LE edema #CKD stage 3 #CAD #COPD #Hypertension Renal function stable continue IV Lasix 100mg BID + Metolozone as per cardiology trend weights, BUN/Cr and electrolytes wound care as per primary on IV Abx, f/u cultures Fluid restriction as per cardiology Thank you Ko Adler DO
[2018-08-25] MEDS: CEFTRIAXONE 2 GM in DEXTROSE 5%-WATER 100 ML IVPB SCH (15:34)
--- NOTE | 2018-08-25 15:50 | PN ---
Progress Note (short form) - Note Progress Note: History of Present Illness: no cp sob palps dizzy; still with le edema - Current Medication List Current Medications Generic Name Dose Route Start Last Admin Trade Name Suzanne PRN Reason Stop Dose Admin Acetaminophen 650 mg 08/23/18 00:25 08/23/18 09:15 Tylenol - PO 650 mg Q6H PRN Administration PAIN LEVEL 1-5 Albuterol/Ipratropium 1 amp 08/23/18 00:00 08/25/18 08:10 Duoneb - NEB 1 amp RQ4H [facility] Administration Atenolol 25 mg 08/22/18 22:00 08/25/18 10:59 Tenormin - PO 25 mg BID [facility] Administration Atorvastatin Calcium 20 mg 08/22/18 22:00 08/24/18 21:24 Lipitor - PO 20 mg HS [facility] Administration Bacitracin 1 applic 08/23/18 17:30 08/25/18 10:59 Bacitracin - TP 1 applic BID [facility] Administration Budesonide/Formoterol Fumarate 1 puff 08/22/18 22:00 08/25/18 11:04 Symbicort 160/4.5mcg - IH 1 puff BID [facility] Administration Cholecalciferol 2,000 unit 08/23/18 10:00 08/25/18 10:59 Vitamin D3 - PO 2,000 unit DAILY [facility] Administration Docusate Sodium 100 mg 08/22/18 22:00 08/25/18 15:37 Colace - PO 100 mg TID [facility] Administration Furosemide 100 mg 08/24/18 06:00 08/25/18 06:04 Lasix Injection - IVPB 100 mg BIDLASIX [facility] Administration Guaifenesin 600 mg 08/24/18 22:00 08/25/18 10:58 Mucinex - PO 600 mg BID [facility] Administration Hydralazine HCl 25 mg 08/22/18 22:00 08/25/18 10:59 Apresoline - PO 25 mg BID [facility] Administration Ceftriaxone Sodium 2 gm/ 100 mls @ 100 mls/hr 08/23/18 16:45 08/25/18 15:34 Dextrose IVPB 100 mls/hr DAILY [facility] Administration Protocol Latanoprost 1 drop 08/24/18 22:00 08/24/18 21:27 Xalatan 0.005% Eye Drops - OU 1 drop HS [facility] Administration Losartan Potassium 50 mg 08/23/18 10:00 08/25/18 10:59 Cozaar - PO 50 mg DAILY [facility] Administration Melatonin 5 mg 08/23/18 00:27 Melatonin PO HS PRN INSOMNIA Oxycodone HCl 5 mg 08/23/18 00:25 08/24/18 08:58 Roxicodone - PO 5 mg Q6H PRN Administration PAIN LEVEL 6-10 Potassium Chloride 40 meq 08/24/18 18:00 08/25/18 11:01 K-Dur - PO 40 meq BID [facility] Administration Sodium Chloride 2 spray 08/24/18 18:03 [place] Nasal [place] - NS Q4H PRN NASAL CONGESTION Terazosin HCl 2 mg 08/24/18 10:00 08/25/18 11:03 Hytrin - PO 2 mg DAILY [facility] Administration Tiotropium [place] 2 puff 08/23/18 10:00 08/25/18 12:27 Spiriva Respimat IH 2 puff DAILY [facility] Administration Warfarin Sodium 2 mg 08/23/18 18:00 08/24/18 17:53 Coumadin - PO 2 mg DAILY@1800 [facility] Administration - Objective Vital Signs: Vital Signs Period Temp Pulse Resp BP Sys/Hernandez Pulse Ox Last 24 Hr 97.4 F-98.0 F 59-76 20-22 124-160/60-80 96-96 Constitutional: Yes: No Distress, Calm Eyes: No: Sclera Icterus HENT: No: Nasal Congestion Cardiovascular: Yes: Pulse Irregular, JVD, S1, S2, Other (PMI non diplaced). No : Gallop, Murmur Respiratory: Yes: CTA Bilaterally. No: Accessory Muscle Use, Rales, Wheezes Gastrointestinal: Yes: Normal Bowel Sounds, Soft. 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 CT chest 05/2017: desd aorta 5.7 cm, ascd aorta 4.6 cm, no sig change from 2016 per report carotids 09/2014: b/l dz r>L, (right 60-79%) carotids 12/2015: jess >70% (same location as prior stenosis seen 09/2014), no sig stenosis on left carotids 04/2017: 80-99% jess, no sig stenosis on left cta 2006: patent knowles/shaggy, occluded svg to OM mibi 09/2008: no ischemia mibi 05/2011: possible minimal inferolateral ischemia echo 08/2014: nl lv s/f, lae, nl rv s/f, rvsp 40, nl bio avr fcn, mild mr, mod tr echo 09/2015: nl lv/rv, mild lae, nl bio avr, mild tr, mild-mod phtn echo 06/2016 ([facility]): normal LV and RV size and fxn; mod ricardo. 1+ MR. bio avr well -seated. mod-severe TR with severe pulm HTN. asc ao 4.8 cm echo 05/2017: mod lve, nl lvef, rv tds, sev ricardo, mild-mod mr, sev tr, sev phtn, no AI/ echo 08/24/18: nl LV size/EF. + posterolateral hypokinesis. nl RV. L/NÉSTOR. nl bioAVR fxn. mild MR/TR. mild pulm HTN (49 mmHg). 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 today's accurate 187. home/office wts were running 189-190. renal fxn essentially stable. reports poor UOP response subjectively to the high dose lasix he's getting. remains with sob and distended neck veins. echo not c/w RV failure (RV reportedly normal). rec 2L daily fluid restriction, and collect all urine for accurate UOP. will give dose of metolazone 2.5 with am lasix--monitor lytes/renal fxn -08/25: cont iv lasix at current dose today - cellulitis abx per pmd, ID Pafib (on coumadin): - Rate controlled on BB. - AC with coumadin. Dosing per inr. cad s/p inferior [place] 1997, s/p cabg x3 1983 and 1997: -stable, no angina, nl lvef -cont medical management s/p bio avr - nl function on echo CKD: -baseline creatinine 1.7-2.0 -stable here hld: -cont statin htn: - cont home meds - amlodipine held for lower ext edema pad, s/p cea, s/p le bypass/stenting: - Claudication is stable. Pt has been evaluated by several vascular surgeons in the past and his le dz is deemed non revascularizable. Recent carotid US shows stable disease, no new sxs. Continue current cardiac meds. AAA: - Has been stable on serial non con chest/abd ct's over the past years. Has seen vascular in past and they felt he is not a surgical candidate due to high risk. - Continue bb, statin, aggressive bp control.
[2018-08-25] MEDS: WARFARIN NA 2 MG TABLET (UD) PO SCH (18:12)
[2018-08-25] MEDS: ATORVASTATIN CA 20 MG TABLET (FP) PO SCH (22:36)
[2018-08-25] MEDS: LATANOPROST 0.005% OPHTH SOLN 2.5ML BOTTLE OU SCH (22:45)
[2018-08-25] MEDS: MELATONIN 5 MG TABLETS PO PRN (23:20)
[2018-08-26] MEDS: ALBUTEROL SO4 2.5/IPRATROPIUM 0.5 INH SOL 3 ML VIAL.NEB. NEB SCH ×6 (00:43→20:40)
[2018-08-26] MEDS: DOCUSATE SODIUM 100 MG CAPSULE (FP) PO SCH ×4 (05:47→22:33)
[2018-08-26] MEDS: FUROSEMIDE 40 MG/4 ML INJECTABLE VIAL IVPB SCH ×2 (05:52→18:08)
[2018-08-26 06:47] LABS: BASO % 0.5 % (0-2.0); EOS % 4.3 % (0-4.5); HEMATOCRIT 28.7 % (35.4-49); HEMOGLOBIN 9.7 GM/dL (11.7-16.9); LYMPH % 9.6 % (8-40); MCH 30.4 pg (25.7-33.7); MCHC 33.7 g/dl (32.0-35.9); MEAN CELL VOLUME 90.2 fl (80-96); MEAN PLT VOLUME 8.5 fl (7.5-11.1); MONO % 8.9 % (3.8-10.2); NEUT % 76.7 % (42.8-82.8); PLATELET COUNT 137 K/MM3 (134-434); RBC 3.19 M/mm3 (4.00-5.60); RDW 18.4 % (11.9-15.9); WHITE BLOOD COUNT 6.4 K/mm3 (4.0-10.0)
[2018-08-26 07:15] LABS: ANION GAP 8 MMOL/L (8-16); BLOOD UREA NITROGEN 71 mg/dL (7-18); CALCIUM 8.2 mg/dL (8.5-10.1); CHLORIDE 98 mmol/L (98-107); CO2 36 mmol/L (21-32); CREATININE 2.2 mg/dL (0.55-1.3); GLUCOSE,RANDOM 114 mg/dL (74-106); MAGNESIUM 2.5 mg/dL (1.8-2.4); PHOSPHOROUS 4.1 mg/dL (2.5-4.9); POTASSIUM 3.2 mmol/L (3.5-5.1); SODIUM 142 mmol/L (136-145)
[2018-08-26] MEDS ORDERED: PT OWN MED DRAWER 7, Y5N ONE (09:13)
[2018-08-26] MEDS ORDERED: DEXTROSE 5%-WATER 100 ML IVPB ONE (09:14)
[2018-08-26] MEDS: CHOLECALCIFEROL (VITAMIN D3) 1,000 UNIT TABLET (FP) PO SCH (10:11)
[2018-08-26] MEDS: LOSARTAN POTASSIUM 50 MG TABLET (FP) PO SCH (10:11)
[2018-08-26] MEDS: ATENOLOL 25 MG TABLET (FP) PO SCH ×2 (10:11→22:20)
[2018-08-26] MEDS: guaiFENesin 600 MG TABLET.ER (FP) PO SCH ×2 (10:11→22:21)
[2018-08-26] MEDS: POTASSIUM CHLORIDE TABS 20 MEQ TABLET.ER (FP) PO SCH ×2 (10:11→22:21)
[2018-08-26] MEDS: hydrALAZINE HCL 25 MG TABLET (FP) PO SCH ×2 (10:11→22:21)
[2018-08-26] MEDS: TERAZOSIN HCL 1 MG CAPSULE PO SCH (10:12)
[2018-08-26] MEDS: CEFTRIAXONE 2 GM in DEXTROSE 5%-WATER 100 ML IVPB SCH (10:12)
[2018-08-26] MEDS: BACITRACIN 15 GM TUBE TOPICAL OINTMENT TP SCH ×2 (10:13→22:21)
[2018-08-26] MEDS: BUDESONIDE/FORMETEROL FUMARATE 160/4.5 mcg INHALER IH SCH ×2 (10:14→22:22)
[2018-08-26] MEDS: TIOTROPIUM BROMIDE 2.5 MCG (SPIRIVA) RESPIMAT INHALER IH SCH (10:14)
--- NOTE | 2018-08-26 11:06 | PN ---
Progress Note, Physician Chief Complaint: AWAKE ALERT COMFORTABLE EVENTS AND NOTES REVIEWED - Current Medication List Current Medications: Active Medications Acetaminophen (Tylenol -) 650 mg PO Q6H PRN PRN Reason: PAIN LEVEL 1-5 Last Admin: 08/23/18 09:15 Dose: 650 mg Albuterol/Ipratropium (Duoneb -) 1 amp NEB RQ4H [facility] Last Admin: 08/26/18 07:50 Dose: 1 amp Atenolol (Tenormin -) 25 mg PO BID [facility] Last Admin: 08/26/18 10:11 Dose: 25 mg Atorvastatin Calcium (Lipitor -) 20 mg PO HS [facility] Last Admin: 08/25/18 22:36 Dose: 20 mg Bacitracin (Bacitracin -) 1 applic TP BID [facility] Last Admin: 08/26/18 10:13 Dose: 1 applic Budesonide/Formoterol Fumarate (Symbicort 160/4.5mcg -) 1 puff IH BID [facility] Last Admin: 08/26/18 10:14 Dose: 1 puff Cholecalciferol (Vitamin D3 -) 2,000 unit PO DAILY [facility] Last Admin: 08/26/18 10:11 Dose: 2,000 unit Docusate Sodium (Colace -) 100 mg PO TID [facility] Last Admin: 08/26/18 05:47 Dose: 100 mg Furosemide (Lasix Injection -) 100 mg IVPB BIDLASIX [facility] Last Admin: 08/26/18 05:52 Dose: 100 mg Guaifenesin (Mucinex -) 600 mg PO BID [facility] Last Admin: 08/26/18 10:11 Dose: 600 mg Hydralazine HCl (Apresoline -) 25 mg PO BID [facility] Last Admin: 08/26/18 10:11 Dose: 25 mg Ceftriaxone Sodium 2 gm/ (Dextrose) 100 mls @ 100 mls/hr IVPB DAILY [facility]; Protocol Last Admin: 08/26/18 10:12 Dose: 100 mls/hr Latanoprost (Xalatan 0.005% Eye Drops -) 1 drop OU HS [facility] Last Admin: 08/25/18 22:45 Dose: 1 drop Losartan Potassium (Cozaar -) 50 mg PO DAILY [facility] Last Admin: 08/26/18 10:11 Dose: 50 mg Melatonin (Melatonin) 5 mg PO HS PRN PRN Reason: INSOMNIA Last Admin: 08/25/18 23:20 Dose: 5 mg Potassium Chloride (K-Dur -) 40 meq PO BID [facility] Last Admin: 08/26/18 10:11 Dose: 40 meq Sodium Chloride ([place] Nasal [place] -) 2 spray NS Q4H PRN PRN Reason: NASAL CONGESTION Terazosin HCl (Hytrin -) 2 mg PO DAILY [facility] Last Admin: 08/26/18 10:12 Dose: 2 mg Tiotropium [place] (Spiriva Respimat) 2 puff IH DAILY [facility] Last Admin: 08/26/18 10:14 Dose: 2 puff Warfarin Sodium (Coumadin -) 2 mg PO DAILY@1800 [facility] Last Admin: 08/25/18 18:12 Dose: 2 mg - Objective Vital Signs: Vital Signs Temperature 97.7 F 08/26/18 06:05 Pulse Rate 67 08/26/18 10:00 Respiratory Rate 20 08/26/18 10:00 Blood Pressure 148/70 08/26/18 10:00 O2 Sat by Pulse Oximetry (%) 97 08/25/18 21:00 Constitutional: Yes: Mild Distress Eyes: Yes: WNL HENT: Yes: WNL Neck: Yes: WNL Cardiovascular: Yes: Regular Rate and Rhythm, Other Respiratory: Yes: On Nasal O2 Gastrointestinal: Yes: Soft Genitourinary: Yes: WNL Musculoskeletal: Yes: WNL Extremities: Yes: WNL Edema: Yes Integumentary: Yes: WNL Wound/Incision: Yes: Clean/Dry Neurological: Yes: WNL Labs: CBC, BMP 08/26/18 06:00 08/26/18 06:00 INR, PTT INR 2.04 (0.83-1.09) H 08/25/18 07:43 Problem List - Problems (1) COPD (chronic obstructive pulmonary disease) Code(s): J44.9 - CHRONIC OBSTRUCTIVE PULMONARY DISEASE, UNSPECIFIED (2) Electrolyte abnormality Code(s): E87.8 - OTH DISORDERS OF ELECTROLYTE AND FLUID BALANCE, NEC (3) Leg wound, left Code(s): S81.802A - UNSPECIFIED OPEN WOUND, LEFT LOWER LEG, INITIAL ENCOUNTER (4) Venous stasis Code(s): I87.8 - OTHER SPECIFIED DISORDERS OF VEINS (5) Acute on chronic diastolic (congestive) heart failure Code(s): I50.33 - ACUTE ON CHRONIC DIASTOLIC (CONGESTIVE) HEART FAILURE (6) Anemia Code(s): D64.9 - ANEMIA, UNSPECIFIED Qualifiers: Anemia type: B12 deficiency (7) Aortic aneurysm Code(s): I71.9 - AORTIC ANEURYSM OF UNSPECIFIED SITE, WITHOUT RUPTURE (8) Atrial fibrillation Code(s): I48.91 - UNSPECIFIED ATRIAL FIBRILLATION Qualifiers: Atrial fibrillation type: chronic Qualified Code(s): I48.2 - Chronic atrial fibrillation (9) History of aortic valve replacement with bioprosthetic valve Code(s): Z98.890 - OTHER SPECIFIED POSTPROCEDURAL STATES; Z95.3 - PRESENCE OF XENOGENIC HEART VALVE Assessment/Plan IV ABX REPLETE [facility] CARDIOLOG[facility] EVAL OOB TO CHAIR CHANGE IV SITE D/W NURSE AC
--- NOTE | 2018-08-26 15:01 | PN ---
Progress Note (short form) - Note Progress Note: Renal follow up for URBAN Pt seen and examined at the bedside no acute complaints feels better making a lot of urine no cp, sob, fever, chills Vital Signs Temperature 97.3 F L 08/26/18 12:47 Pulse Rate 60 08/26/18 12:47 Respiratory Rate 19 08/26/18 12:47 Blood Pressure 127/55 L 08/26/18 12:47 O2 Sat by Pulse Oximetry (%) 97 08/25/18 21:00 Intake & Output 08/23/18 08/24/18 08/25/18 08/26/18 23:59 23:59 23:59 23:59 Intake Total 1285 1515 340 Output Total 830 780 700 Balance 455 735 -360 Weight 67.812 kg 85.139 kg 86.137 kg 84.323 kg NAD awake and alert neck supple, no JVD RRR, no M/R Dec BS, but no rales or wheeze soft NT/ND LE in wrap, trace edema CBC, BMP 08/26/18 06:00 08/26/18 06:00 Current Medications Acetaminophen (Tylenol -) 650 mg PO Q6H PRN PRN Reason: PAIN LEVEL 1-5 Last Admin: 08/23/18 09:15 Dose: 650 mg Albuterol/Ipratropium (Duoneb -) 1 amp NEB RQ4H [facility] Last Admin: 08/26/18 11:15 Dose: 1 amp Atenolol (Tenormin -) 25 mg PO BID [facility] Last Admin: 08/26/18 10:11 Dose: 25 mg Atorvastatin Calcium (Lipitor -) 20 mg PO HS [facility] Last Admin: 08/25/18 22:36 Dose: 20 mg Bacitracin (Bacitracin -) 1 applic TP BID [facility] Last Admin: 08/26/18 10:13 Dose: 1 applic Budesonide/Formoterol Fumarate (Symbicort 160/4.5mcg -) 1 puff IH BID [facility] Last Admin: 08/26/18 10:14 Dose: 1 puff Cholecalciferol (Vitamin D3 -) 2,000 unit PO DAILY [facility] Last Admin: 08/26/18 10:11 Dose: 2,000 unit Docusate Sodium (Colace -) 100 mg PO TID [facility] Last Admin: 08/26/18 05:47 Dose: 100 mg Furosemide (Lasix Injection -) 100 mg IVPB BIDLASIX [facility] Last Admin: 08/26/18 05:52 Dose: 100 mg Guaifenesin (Mucinex -) 600 mg PO BID [facility] Last Admin: 08/26/18 10:11 Dose: 600 mg Hydralazine HCl (Apresoline -) 25 mg PO BID [facility] Last Admin: 08/26/18 10:11 Dose: 25 mg Ceftriaxone Sodium 2 gm/ (Dextrose) 100 mls @ 100 mls/hr IVPB DAILY [facility]; Protocol Last Admin: 08/26/18 10:12 Dose: 100 mls/hr Latanoprost (Xalatan 0.005% Eye Drops -) 1 drop OU HS [facility] Last Admin: 08/25/18 22:45 Dose: 1 drop Losartan Potassium (Cozaar -) 50 mg PO DAILY [facility] Last Admin: 08/26/18 10:11 Dose: 50 mg Melatonin (Melatonin) 5 mg PO HS PRN PRN Reason: INSOMNIA Last Admin: 08/25/18 23:20 Dose: 5 mg Potassium Chloride (K-Dur -) 40 meq PO BID [facility] Last Admin: 08/26/18 10:11 Dose: 40 meq Sodium Chloride ([place] Nasal [place] -) 2 spray NS Q4H PRN PRN Reason: NASAL CONGESTION Terazosin HCl (Hytrin -) 2 mg PO DAILY [facility] Last Admin: 08/26/18 10:12 Dose: 2 mg Tiotropium [place] (Spiriva Respimat) 2 puff IH DAILY [facility] Last Admin: 08/26/18 10:14 Dose: 2 puff Warfarin Sodium (Coumadin -) 2 mg PO DAILY@1800 [facility] Last Admin: 08/25/18 18:12 Dose: 2 mg This is a 87 year old gentleman with hx of CKD (baseline Cr ~1.5-2), COPD, CHF, CAD s/p CABG, hyperlipidemia, DVT, Hypertension, DM who presented with left LE wound. #LE wound #LE edema #CKD stage 3 #CAD #COPD #Hypertension Renal function stable continue IV Lasix 100mg BID + Metolozone as per cardiology trend weights, BUN/Cr and electrolytes abx as per primary team low salt diet and fluid restriction Thank you Ko Adler DO
[2018-08-26] MEDS: ACETAMINOPHEN 325 MG TABLET (FP) PO PRN (16:30)
[2018-08-26] MEDS: WARFARIN NA 2 MG TABLET (UD) PO SCH (18:10)
[2018-08-26] MEDS: ATORVASTATIN CA 20 MG TABLET (FP) PO SCH (22:21)
[2018-08-26] MEDS: LATANOPROST 0.005% OPHTH SOLN 2.5ML BOTTLE OU SCH (22:22)
[2018-08-26] MEDS: MELATONIN 5 MG TABLETS PO PRN (22:37)
[2018-08-27] MEDS: ALBUTEROL SO4 2.5/IPRATROPIUM 0.5 INH SOL 3 ML VIAL.NEB. NEB SCH ×6 (00:30→20:47)
[2018-08-27 07:38] LABS: HEMOGLOBIN 10.1 GM/dL (11.7-16.9); MCH 30.2 pg (25.7-33.7); MCHC 33.7 g/dl (32.0-35.9); MEAN CELL VOLUME 89.7 fl (80-96); MEAN PLT VOLUME 8.6 fl (7.5-11.1); PLATELET COUNT 136 K/MM3 (134-434); RBC 3.35 M/mm3 (4.00-5.60); RDW 18.5 % (11.9-15.9); WHITE BLOOD COUNT 5.6 K/mm3 (4.0-10.0)
[2018-08-27 08:04] LABS: ANION GAP 9 MMOL/L (8-16); BLOOD UREA NITROGEN 68 mg/dL (7-18); CALCIUM 8.4 mg/dL (8.5-10.1); CHLORIDE 98 mmol/L (98-107); CO2 34 mmol/L (21-32); CREATININE 2.1 mg/dL (0.55-1.3); GLUCOSE,RANDOM 111 mg/dL (74-106); MAGNESIUM 2.3 mg/dL (1.8-2.4); PHOSPHOROUS 4.2 mg/dL (2.5-4.9); POTASSIUM 3.1 mmol/L (3.5-5.1); SODIUM 141 mmol/L (136-145)
[2018-08-27] MEDS: DOCUSATE SODIUM 100 MG CAPSULE (FP) PO SCH ×3 (08:33→21:19)
[2018-08-27] MEDS ORDERED: PT OWN MED DRAWER 7, Y5N ONE ×2 (09:04→20:45)
[2018-08-27] MEDS ORDERED: DEXTROSE 5%-WATER 100 ML IVPB ONE (09:05)
[2018-08-27] MEDS: CEFTRIAXONE 2 GM in DEXTROSE 5%-WATER 100 ML IVPB SCH (09:10)
[2018-08-27] MEDS: ACETAMINOPHEN 325 MG TABLET (FP) PO PRN ×2 (09:10→17:27)
[2018-08-27] MEDS: LOSARTAN POTASSIUM 50 MG TABLET (FP) PO SCH (09:10)
[2018-08-27] MEDS: POTASSIUM CHLORIDE TABS 20 MEQ TABLET.ER (FP) PO SCH ×2 (09:10→21:18)
[2018-08-27] MEDS: guaiFENesin 600 MG TABLET.ER (FP) PO SCH ×2 (09:10→21:20)
[2018-08-27] MEDS: CHOLECALCIFEROL (VITAMIN D3) 1,000 UNIT TABLET (FP) PO SCH (09:11)
[2018-08-27] MEDS: hydrALAZINE HCL 25 MG TABLET (FP) PO SCH ×2 (09:11→21:18)
[2018-08-27] MEDS: ATENOLOL 25 MG TABLET (FP) PO SCH ×2 (09:11→21:20)
[2018-08-27] MEDS: BACITRACIN 15 GM TUBE TOPICAL OINTMENT TP SCH ×2 (09:11→21:19)
[2018-08-27] MEDS: TERAZOSIN HCL 1 MG CAPSULE PO SCH (09:11)
[2018-08-27] MEDS: TIOTROPIUM BROMIDE 2.5 MCG (SPIRIVA) RESPIMAT INHALER IH SCH (09:13)
[2018-08-27] MEDS: BUDESONIDE/FORMETEROL FUMARATE 160/4.5 mcg INHALER IH SCH ×2 (09:13→21:18)
[2018-08-27] MEDS ORDERED: TORSEMIDE 100 MG TABLET PO ONE (11:45)
[2018-08-27] MEDS: FUROSEMIDE 40 MG/4 ML INJECTABLE VIAL IVPB SCH ×2 (12:07→17:24)
--- NOTE | 2018-08-27 12:53 | PN ---
Progress Note (short form) - Note Progress Note: Renal follow up for URBAN Pt seen and examined at the bedside no acute complaints did not get IV lasix this as IV acccess was not working legs feel better, no sob, cp, abd pain Vital Signs Temperature 98.9 F 08/27/18 06:00 Pulse Rate 59 L 08/27/18 06:00 Respiratory Rate 18 08/27/18 06:00 Blood Pressure 146/70 08/27/18 06:00 O2 Sat by Pulse Oximetry (%) 97 08/26/18 21:00 Intake & Output 08/24/18 08/25/18 08/26/18 08/27/18 23:59 23:59 23:59 23:59 Intake Total 1285 1515 340 Output Total 830 780 700 700 Balance 455 735 -360 -700 Weight 85.139 kg 86.137 kg 84.323 kg 83.461 kg NAD awake and alert neck supple, no JVD RRR, no M/R Dec BS, but no rales or wheeze soft NT/ND LE in wrap, trace edema 08/27/18 06:00 08/27/18 06:00 Current Medications Acetaminophen (Tylenol -) 650 mg PO Q6H PRN PRN Reason: PAIN LEVEL 1-5 Last Admin: 08/27/18 09:10 Dose: 650 mg Albuterol/Ipratropium (Duoneb -) 1 amp NEB RQ4H [facility] Last Admin: 08/27/18 11:35 Dose: 1 amp Atenolol (Tenormin -) 25 mg PO BID [facility] Last Admin: 08/27/18 09:11 Dose: 25 mg Atorvastatin Calcium (Lipitor -) 20 mg PO HS [facility] Last Admin: 08/26/18 22:21 Dose: 20 mg Bacitracin (Bacitracin -) 1 applic TP BID [facility] Last Admin: 08/27/18 09:11 Dose: 1 applic Budesonide/Formoterol Fumarate (Symbicort 160/4.5mcg -) 1 puff IH BID [facility] Last Admin: 08/27/18 09:13 Dose: 1 puff Cholecalciferol (Vitamin D3 -) 2,000 unit PO DAILY [facility] Last Admin: 08/27/18 09:11 Dose: 2,000 unit Docusate Sodium (Colace -) 100 mg PO TID [facility] Last Admin: 08/27/18 08:33 Dose: Not Given Furosemide (Lasix Injection -) 100 mg IVPB BIDLASIX [facility] Last Admin: 08/27/18 12:07 Dose: Not Given Guaifenesin (Mucinex -) 600 mg PO BID [facility] Last Admin: 08/27/18 09:10 Dose: 600 mg Hydralazine HCl (Apresoline -) 25 mg PO BID [facility] Last Admin: 08/27/18 09:11 Dose: 25 mg Ceftriaxone Sodium 2 gm/ (Dextrose) 100 mls @ 100 mls/hr IVPB DAILY [facility]; Protocol Last Admin: 08/27/18 09:10 Dose: 100 mls/hr Latanoprost (Xalatan 0.005% Eye Drops -) 1 drop OU HS [facility] Last Admin: 08/26/18 22:22 Dose: 1 drop Losartan Potassium (Cozaar -) 50 mg PO DAILY [facility] Last Admin: 08/27/18 09:10 Dose: 50 mg Melatonin (Melatonin) 5 mg PO HS PRN PRN Reason: INSOMNIA Last Admin: 08/26/18 22:37 Dose: 5 mg Potassium Chloride (K-Dur -) 40 meq PO BID [facility] Last Admin: 08/27/18 09:10 Dose: 40 meq Sodium Chloride ([place] Nasal [place] -) 2 spray NS Q4H PRN PRN Reason: NASAL CONGESTION Terazosin HCl (Hytrin -) 2 mg PO DAILY [facility] Last Admin: 08/27/18 09:11 Dose: 2 mg Tiotropium [place] (Spiriva Respimat) 2 puff IH DAILY [facility] Last Admin: 08/27/18 09:13 Dose: 2 puff Warfarin Sodium (Coumadin -) 2 mg PO DAILY@1800 [facility] Last Admin: 08/26/18 18:10 Dose: 2 mg This is a 87 year old gentleman with hx of CKD (baseline Cr ~1.5-2), COPD, CHF, CAD s/p CABG, hyperlipidemia, DVT, Hypertension, DM who presented with left LE wound. #LE wound #LE edema #CKD stage 3 #CAD #COPD #Hypertension Renal function stable will give dose of torsemide 100mg now as pt is w/o IV access and not getting diuresis continue to trend renal function and electrolytes Abx as per primary team continue supportive care Thank you Ko Adler DO
--- NOTE | 2018-08-27 14:28 | PN ---
Progress Note (short form) - Note Progress Note: no cp sob palps dizzy; edema improving. no IV access, received torsemide. - Current Medication List Current Medications Acetaminophen (Tylenol -) 650 mg PO Q6H PRN PRN Reason: PAIN LEVEL 1-5 Last Admin: 08/27/18 09:10 Dose: 650 mg Albuterol/Ipratropium (Duoneb -) 1 amp NEB RQ4H [facility] Last Admin: 08/27/18 11:35 Dose: 1 amp Atenolol (Tenormin -) 25 mg PO BID [facility] Last Admin: 08/27/18 09:11 Dose: 25 mg Atorvastatin Calcium (Lipitor -) 20 mg PO HS [facility] Last Admin: 08/26/18 22:21 Dose: 20 mg Bacitracin (Bacitracin -) 1 applic TP BID [facility] Last Admin: 08/27/18 09:11 Dose: 1 applic Budesonide/Formoterol Fumarate (Symbicort 160/4.5mcg -) 1 puff IH BID [facility] Last Admin: 08/27/18 09:13 Dose: 1 puff Cephalexin HCl (Keflex -) 500 mg PO BID [facility] Cholecalciferol (Vitamin D3 -) 2,000 unit PO DAILY [facility] Last Admin: 08/27/18 09:11 Dose: 2,000 unit Docusate Sodium (Colace -) 100 mg PO TID [facility] Last Admin: 08/27/18 08:33 Dose: Not Given Furosemide (Lasix Injection -) 100 mg IVPB BIDLASIX [facility] Last Admin: 08/27/18 12:07 Dose: Not Given Guaifenesin (Mucinex -) 600 mg PO BID [facility] Last Admin: 08/27/18 09:10 Dose: 600 mg Hydralazine HCl (Apresoline -) 25 mg PO BID [facility] Last Admin: 08/27/18 09:11 Dose: 25 mg Latanoprost (Xalatan 0.005% Eye Drops -) 1 drop OU HS [facility] Last Admin: 08/26/18 22:22 Dose: 1 drop Losartan Potassium (Cozaar -) 50 mg PO DAILY [facility] Last Admin: 08/27/18 09:10 Dose: 50 mg Melatonin (Melatonin) 5 mg PO HS PRN PRN Reason: INSOMNIA Last Admin: 08/26/18 22:37 Dose: 5 mg Potassium Chloride (K-Dur -) 40 meq PO BID [facility] Last Admin: 08/27/18 09:10 Dose: 40 meq Sodium Chloride ([place] Nasal [place] -) 2 spray NS Q4H PRN PRN Reason: NASAL CONGESTION Terazosin HCl (Hytrin -) 2 mg PO DAILY [facility] Last Admin: 08/27/18 09:11 Dose: 2 mg Tiotropium [place] (Spiriva Respimat) 2 puff IH DAILY [facility] Last Admin: 08/27/18 09:13 Dose: 2 puff Warfarin Sodium (Coumadin -) 2 mg PO DAILY@1800 [facility] Last Admin: 08/26/18 18:10 Dose: 2 mg - Objective Vital Signs: Vital Signs Period Temp Pulse Resp BP Sys/Hernandez Pulse Ox Last 24 Hr 97.4 F-98.9 F 59-86 18-18 132-146/70-79 97 Constitutional: Yes: No Distress, Calm Eyes: No: Sclera Icterus HENT: No: Nasal Congestion Cardiovascular: Yes: Pulse Irregular, JVD, S1, S2, Other (PMI non diplaced). No : Gallop, Murmur Respiratory: Yes: CTA Bilaterally. No: Accessory Muscle Use, Rales, Wheezes Gastrointestinal: Yes: Normal Bowel Sounds, Soft. 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 CT chest 05/2017: desd aorta 5.7 cm, ascd aorta 4.6 cm, no sig change from 2016 per report carotids 09/2014: b/l dz r>L, (right 60-79%) carotids 12/2015: jess >70% (same location as prior stenosis seen 09/2014), no sig stenosis on left carotids 04/2017: 80-99% jess, no sig stenosis on left cta 2006: patent knowles/shaggy, occluded svg to OM mibi 09/2008: no ischemia mibi 05/2011: possible minimal inferolateral ischemia echo 08/2014: nl lv s/f, lae, nl rv s/f, rvsp 40, nl bio avr fcn, mild mr, mod tr echo 09/2015: nl lv/rv, mild lae, nl bio avr, mild tr, mild-mod phtn echo 06/2016 ([facility]): normal LV and RV size and fxn; mod ricardo. 1+ MR. bio avr well -seated. mod-severe TR with severe pulm HTN. asc ao 4.8 cm echo 05/2017: mod lve, nl lvef, rv tds, sev ricardo, mild-mod mr, sev tr, sev phtn, no AI/ echo 08/24/18: nl LV size/EF. + posterolateral hypokinesis. nl RV. L/NÉSTOR. nl bioAVR fxn. mild MR/TR. mild pulm HTN (49 mmHg). 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 today's accurate 187. home/office wts were running 189-190. renal fxn essentially stable. reports poor UOP response subjectively to the high dose lasix he's getting. remains with sob and distended neck veins. echo not c/w RV failure (RV reportedly normal). rec 2L daily fluid restriction, and collect all urine for accurate UOP. will give dose of metolazone 2.5 with am lasix--monitor lytes/renal fxn -08/25: cont iv lasix at current dose today -08/27: lost IV access, did not receive IV lasix today - given torsemide 100 mg PO this afternoon, subjectively not much UOP yet. +JVD on exam, Cr stable. when IV access replaced would continue lasix 100 mg IV BID - cellulitis abx per pmd, ID Pafib (on coumadin): - Rate controlled on BB. - AC with coumadin. Dosing per inr. cad s/p inferior [place] 1997, s/p cabg x3 1983 and 1997: -stable, no angina, nl lvef -cont medical management s/p bio avr - nl function on echo CKD: -baseline creatinine 1.7-2.0 -stable here hld: -cont statin htn: - cont home meds - amlodipine held for lower ext edema pad, s/p cea, s/p le bypass/stenting: - Claudication is stable. Pt has been evaluated by several vascular surgeons in the past and his le dz is deemed non revascularizable. Recent carotid US shows stable disease, no new sxs. Continue current cardiac meds. AAA: - Has been stable on serial non con chest/abd ct's over the past years. Has seen vascular in past and they felt he is not a surgical candidate due to high risk. - Continue bb, statin, aggressive bp control.
--- NOTE | 2018-08-27 14:41 | PN ---
Progress Note, Physician History of Present Illness: NO C/O LEG PAIN AT REST AFEBRILE WBC WNL BC (-) TOLERATING CEPHALOSPORIN - Current Medication List Current Medications: Active Medications Acetaminophen (Tylenol -) 650 mg PO Q6H PRN PRN Reason: PAIN LEVEL 1-5 Last Admin: 08/27/18 09:10 Dose: 650 mg Albuterol/Ipratropium (Duoneb -) 1 amp NEB RQ4H [facility] Last Admin: 08/27/18 11:35 Dose: 1 amp Atenolol (Tenormin -) 25 mg PO BID [facility] Last Admin: 08/27/18 09:11 Dose: 25 mg Atorvastatin Calcium (Lipitor -) 20 mg PO HS [facility] Last Admin: 08/26/18 22:21 Dose: 20 mg Bacitracin (Bacitracin -) 1 applic TP BID [facility] Last Admin: 08/27/18 09:11 Dose: 1 applic Budesonide/Formoterol Fumarate (Symbicort 160/4.5mcg -) 1 puff IH BID [facility] Last Admin: 08/27/18 09:13 Dose: 1 puff Cephalexin HCl (Keflex -) 500 mg PO BID [facility] Cholecalciferol (Vitamin D3 -) 2,000 unit PO DAILY [facility] Last Admin: 08/27/18 09:11 Dose: 2,000 unit Docusate Sodium (Colace -) 100 mg PO TID [facility] Last Admin: 08/27/18 08:33 Dose: Not Given Furosemide (Lasix Injection -) 100 mg IVPB BIDLASIX [facility] Last Admin: 08/27/18 12:07 Dose: Not Given Guaifenesin (Mucinex -) 600 mg PO BID [facility] Last Admin: 08/27/18 09:10 Dose: 600 mg Hydralazine HCl (Apresoline -) 25 mg PO BID [facility] Last Admin: 08/27/18 09:11 Dose: 25 mg Latanoprost (Xalatan 0.005% Eye Drops -) 1 drop OU HS [facility] Last Admin: 08/26/18 22:22 Dose: 1 drop Losartan Potassium (Cozaar -) 50 mg PO DAILY [facility] Last Admin: 08/27/18 09:10 Dose: 50 mg Melatonin (Melatonin) 5 mg PO HS PRN PRN Reason: INSOMNIA Last Admin: 08/26/18 22:37 Dose: 5 mg Potassium Chloride (K-Dur -) 40 meq PO BID [facility] Last Admin: 08/27/18 09:10 Dose: 40 meq Sodium Chloride ([place] Nasal [place] -) 2 spray NS Q4H PRN PRN Reason: NASAL CONGESTION Terazosin HCl (Hytrin -) 2 mg PO DAILY [facility] Last Admin: 08/27/18 09:11 Dose: 2 mg Tiotropium [place] (Spiriva Respimat) 2 puff IH DAILY [facility] Last Admin: 08/27/18 09:13 Dose: 2 puff Warfarin Sodium (Coumadin -) 2 mg PO DAILY@1800 [facility] Last Admin: 08/26/18 18:10 Dose: 2 mg - Objective Vital Signs: Vital Signs Temperature 97.4 F L 08/27/18 14:16 Pulse Rate 77 08/27/18 14:16 Respiratory Rate 18 08/27/18 14:16 Blood Pressure 146/76 08/27/18 14:16 O2 Sat by Pulse Oximetry (%) 97 08/26/18 21:00 Constitutional: Yes: Obese Cardiovascular: Yes: Regular Rate and Rhythm, S1, S2 Respiratory: Yes: CTA Bilaterally Gastrointestinal: Yes: Normal Bowel Sounds, Soft, Abdomen, Obese. No: Tenderness Extremities: Yes: Other (ERYTHEMA/ WARMTH L LE RESOLVED; ULCER CLEAN W/O PURULENCE; + CHRONIC VENOUS STASIS LE) Labs: CBC, BMP 08/27/18 06:00 08/27/18 06:00 INR, PTT INR 2.04 (0.83-1.09) H 08/25/18 07:43 Assessment/Plan CELLULITIS L LE RESOLVED + L LE ULCER PCN ALLERGY CKD LACTIC ACIDOSIS RESOLVED S/P AVR SUBSTITUTE KEFLEX 500MG PO BID X 7D [facility]
--- NOTE | 2018-08-27 15:11 | PN ---
Progress Note, Physician Chief Complaint: LLE wound CHF CRI COPD History of Present Illness: Previous notes and events reviewed awake and alert NAD patient states breathing improving denies chest pain - Current Medication List Current Medications: Active Medications Acetaminophen (Tylenol -) 650 mg PO Q6H PRN PRN Reason: PAIN LEVEL 1-5 Last Admin: 08/27/18 09:10 Dose: 650 mg Albuterol/Ipratropium (Duoneb -) 1 amp NEB RQ4H [facility] Last Admin: 08/27/18 11:35 Dose: 1 amp Atenolol (Tenormin -) 25 mg PO BID [facility] Last Admin: 08/27/18 09:11 Dose: 25 mg Atorvastatin Calcium (Lipitor -) 20 mg PO HS [facility] Last Admin: 08/26/18 22:21 Dose: 20 mg Bacitracin (Bacitracin -) 1 applic TP BID [facility] Last Admin: 08/27/18 09:11 Dose: 1 applic Budesonide/Formoterol Fumarate (Symbicort 160/4.5mcg -) 1 puff IH BID [facility] Last Admin: 08/27/18 09:13 Dose: 1 puff Cephalexin HCl (Keflex -) 500 mg PO BID [facility] Cholecalciferol (Vitamin D3 -) 2,000 unit PO DAILY [facility] Last Admin: 08/27/18 09:11 Dose: 2,000 unit Docusate Sodium (Colace -) 100 mg PO TID [facility] Last Admin: 08/27/18 08:33 Dose: Not Given Furosemide (Lasix Injection -) 100 mg IVPB BIDLASIX [facility] Last Admin: 08/27/18 12:07 Dose: Not Given Guaifenesin (Mucinex -) 600 mg PO BID [facility] Last Admin: 08/27/18 09:10 Dose: 600 mg Hydralazine HCl (Apresoline -) 25 mg PO BID [facility] Last Admin: 08/27/18 09:11 Dose: 25 mg Latanoprost (Xalatan 0.005% Eye Drops -) 1 drop OU HS [facility] Last Admin: 08/26/18 22:22 Dose: 1 drop Losartan Potassium (Cozaar -) 50 mg PO DAILY [facility] Last Admin: 08/27/18 09:10 Dose: 50 mg Melatonin (Melatonin) 5 mg PO HS PRN PRN Reason: INSOMNIA Last Admin: 08/26/18 22:37 Dose: 5 mg Potassium Chloride (K-Dur -) 40 meq PO BID [facility] Last Admin: 08/27/18 09:10 Dose: 40 meq Sodium Chloride ([place] Nasal [place] -) 2 spray NS Q4H PRN PRN Reason: NASAL CONGESTION Terazosin HCl (Hytrin -) 2 mg PO DAILY [facility] Last Admin: 08/27/18 09:11 Dose: 2 mg Tiotropium [place] (Spiriva Respimat) 2 puff IH DAILY [facility] Last Admin: 08/27/18 09:13 Dose: 2 puff Warfarin Sodium (Coumadin -) 2 mg PO DAILY@1800 [facility] Last Admin: 08/26/18 18:10 Dose: 2 mg - Objective Vital Signs: Vital Signs Temperature 97.4 F L 08/27/18 14:16 Pulse Rate 77 08/27/18 14:16 Respiratory Rate 18 08/27/18 14:16 Blood Pressure 146/76 08/27/18 14:16 O2 Sat by Pulse Oximetry (%) 97 08/26/18 21:00 Constitutional: Yes: No Distress, Calm Eyes: Yes: Conjunctiva Clear HENT: Yes: Atraumatic Cardiovascular: Yes: Regular Rate and Rhythm Respiratory: Yes: Diminished, On Nasal O2 Gastrointestinal: Yes: Normal Bowel Sounds, Soft Musculoskeletal: Yes: Muscle Weakness Extremities: Yes: WNL Edema: No Wound/Incision: Yes: Dressing Dry and Intact Neurological: Yes: Alert, Oriented Psychiatric: Yes: Alert, Oriented Labs: CBC, BMP 08/27/18 06:00 08/27/18 06:00 INR, PTT INR 2.04 (0.83-1.09) H 08/25/18 07:43 Microbiology 08/22/18 16:55 Blood - Peripheral Venous Blood Culture - Preliminary NO GROWTH OBTAINED AFTER 96 HOURS, INCUBATION TO CONTINUE FOR 1 DAYS. 08/22/18 16:55 Blood - Peripheral Venous Blood Culture - Preliminary NO GROWTH OBTAINED AFTER 96 HOURS, INCUBATION TO CONTINUE FOR 1 DAYS. 08/22/18 17:45 Urine - Urine Clean Catch Urine Culture - Final NO GROWTH OBTAINED Problem List - Problems (1) COPD (chronic obstructive pulmonary disease) Assessment/Plan: -bronchodilators -O2 via NC -keep SpO2 >90% -Symbicrot and Spiriva Code(s): J44.9 - CHRONIC OBSTRUCTIVE PULMONARY DISEASE, UNSPECIFIED (2) Electrolyte abnormality Assessment/Plan: -continue with K-dur 40mg BID -monitor electrolyte daily Code(s): E87.8 - OTH DISORDERS OF ELECTROLYTE AND FLUID BALANCE, NEC (3) Leg wound, left Assessment/Plan: -ID on board -daily dressing changes -Keflex PO -no leukocytosis Code(s): S81.802A - UNSPECIFIED OPEN WOUND, LEFT LOWER LEG, INITIAL ENCOUNTER (4) Acute on chronic diastolic (congestive) heart failure Assessment/Plan: -cardiology on board -Furosemide 80mg BID -1L fluid restriction -daily weight Code(s): I50.33 - ACUTE ON CHRONIC DIASTOLIC (CONGESTIVE) HEART FAILURE (5) Chronic renal insufficiency Assessment/Plan: -BUN/Cr 68/2.1 -monitor renal function -renal on board Code(s): N18.9 - CHRONIC KIDNEY DISEASE, UNSPECIFIED Qualifiers: Chronic kidney disease stage: unspecified stage Qualified Code(s): N18.9 - Chronic kidney disease, unspecified (6) Atrial fibrillation Assessment/Plan: -continue Coumadin -monitor INR daily -INR therapeutic goal 2-3 Code(s): I48.91 - UNSPECIFIED ATRIAL FIBRILLATION Qualifiers: Atrial fibrillation type: chronic Qualified Code(s): I48.2 - Chronic atrial fibrillation Assessment/Plan see problem list dvt ppx
[2018-08-27] MEDS ORDERED: FUROSEMIDE 40 MG TABLET (FP) PO ONE (19:00)
[2018-08-27 19:49] LABS: INR 1.64 (0.83-1.09); PROTHROMBIN TIME (PATIENT) 19.5 SEC (9.7-13.0)
[2018-08-27] MEDS: WARFARIN NA 2 MG TABLET (UD) PO SCH (19:57)
[2018-08-27] MEDS: LATANOPROST 0.005% OPHTH SOLN 2.5ML BOTTLE OU SCH (21:18)
[2018-08-27] MEDS: CEPHALEXIN MONOHYDRATE 500 MG CAPSULE (UD) PO SCH (21:19)
[2018-08-27] MEDS: ATORVASTATIN CA 20 MG TABLET (FP) PO SCH (21:20)
[2018-08-28] MEDS: MELATONIN 5 MG TABLETS PO PRN (00:51)
[2018-08-28] MEDS: ACETAMINOPHEN 325 MG TABLET (FP) PO PRN ×2 (00:51→14:11)
[2018-08-28] MEDS: FUROSEMIDE 40 MG TABLET (FP) PO SCH ×2 (06:18→14:11)
[2018-08-28] MEDS: DOCUSATE SODIUM 100 MG CAPSULE (FP) PO SCH ×3 (06:18→21:27)
[2018-08-28 08:03] LABS: BASO % 0.8 % (0-2.0); EOS % 6.3 % (0-4.5); HEMATOCRIT 32.5 % (35.4-49); HEMOGLOBIN 10.8 GM/dL (11.7-16.9); LYMPH % 12.3 % (8-40); MCH 30.1 pg (25.7-33.7); MCHC 33.2 g/dl (32.0-35.9); MEAN CELL VOLUME 90.6 fl (80-96); MEAN PLT VOLUME 8.4 fl (7.5-11.1); MONO % 10.1 % (3.8-10.2); NEUT % 70.5 % (42.8-82.8); PLATELET COUNT 157 K/MM3 (134-434); RBC 3.59 M/mm3 (4.00-5.60); RDW 19.1 % (11.9-15.9); WHITE BLOOD COUNT 6.7 K/mm3 (4.0-10.0)
[2018-08-28 08:26] LABS: INR 1.64 (0.83-1.09); PROTHROMBIN TIME (PATIENT) 19.4 SEC (9.7-13.0)
[2018-08-28 08:37] LABS: ALBUMIN 3.7 g/dl (3.4-5.0); ALK PHOS 86 U/L (45-117); ANION GAP 8 MMOL/L (8-16); BILIRUBIN,TOTAL 0.5 mg/dL (0.2-1); BLOOD UREA NITROGEN 65 mg/dL (7-18); CALCIUM 8.8 mg/dL (8.5-10.1); CHLORIDE 98 mmol/L (98-107); CO2 35 mmol/L (21-32); CREATININE 2.1 mg/dL (0.55-1.3); GLUCOSE,RANDOM 101 mg/dL (74-106); MAGNESIUM 2.1 mg/dL (1.8-2.4); PHOSPHOROUS 3.5 mg/dL (2.5-4.9); POTASSIUM 3.3 mmol/L (3.5-5.1); SGOT/AST 25 U/L (15-37); SGPT/ALT 22 U/L (13-61); SODIUM 141 mmol/L (136-145); TOT PROT 7.6 g/dl (6.4-8.2)
--- NOTE | 2018-08-28 09:19 | PN ---
Progress Note, Physician Chief Complaint: leg swelling History of Present Illness: leg better sob better--no longer sob on oob to bathroom no cp, palp not urinating much after lasix doses ex cigs - Current Medication List Current Medications: Active Medications Acetaminophen (Tylenol -) 650 mg PO Q6H PRN PRN Reason: PAIN LEVEL 1-5 Last Admin: 08/28/18 00:51 Dose: 650 mg Atenolol (Tenormin -) 25 mg PO BID [facility] Last Admin: 08/27/18 21:20 Dose: 25 mg Atorvastatin Calcium (Lipitor -) 20 mg PO HS [facility] Last Admin: 08/27/18 21:20 Dose: 20 mg Bacitracin (Bacitracin -) 1 applic TP BID [facility] Last Admin: 08/27/18 21:19 Dose: 1 applic Budesonide/Formoterol Fumarate (Symbicort 160/4.5mcg -) 1 puff IH BID [facility] Last Admin: 08/27/18 21:18 Dose: 1 puff Cephalexin HCl (Keflex -) 500 mg PO BID [facility] Last Admin: 08/27/18 21:19 Dose: 500 mg Cholecalciferol (Vitamin D3 -) 2,000 unit PO DAILY [facility] Last Admin: 08/27/18 09:11 Dose: 2,000 unit Docusate Sodium (Colace -) 100 mg PO TID [facility] Last Admin: 08/28/18 06:18 Dose: Not Given Furosemide (Lasix -) 80 mg PO BID@0600,1400 [facility] Last Admin: 08/28/18 06:18 Dose: 80 mg Guaifenesin (Mucinex -) 600 mg PO BID [facility] Last Admin: 08/27/18 21:20 Dose: 600 mg Hydralazine HCl (Apresoline -) 25 mg PO BID [facility] Last Admin: 08/27/18 21:18 Dose: 25 mg Latanoprost (Xalatan 0.005% Eye Drops -) 1 drop OU HS [facility] Last Admin: 08/27/18 21:18 Dose: 1 drop Losartan Potassium (Cozaar -) 50 mg PO DAILY [facility] Last Admin: 08/27/18 09:10 Dose: 50 mg Melatonin (Melatonin) 5 mg PO HS PRN PRN Reason: INSOMNIA Last Admin: 08/28/18 00:51 Dose: 5 mg Potassium Chloride (K-Dur -) 40 meq PO BID [facility] Last Admin: 08/27/18 21:18 Dose: 40 meq Sodium Chloride ([place] Nasal [place] -) 2 spray NS Q4H PRN PRN Reason: NASAL CONGESTION Terazosin HCl (Hytrin -) 2 mg PO DAILY [facility] Last Admin: 08/27/18 09:11 Dose: 2 mg Tiotropium [place] (Spiriva Respimat) 2 puff IH DAILY [facility] Last Admin: 08/27/18 09:13 Dose: 2 puff Warfarin Sodium (Coumadin -) 2 mg PO DAILY@1800 [facility] Last Admin: 08/27/18 19:57 Dose: 2 mg - Objective Vital Signs: Vital Signs Temperature 98.0 F 08/28/18 06:00 Pulse Rate 56 L 08/28/18 06:00 Respiratory Rate 20 08/28/18 06:00 Blood Pressure 142/62 08/28/18 06:00 O2 Sat by Pulse Oximetry (%) 92 L 08/27/18 21:00 Constitutional: Yes: No Distress, Calm Eyes: No: Sclera Icterus HENT: No: Nasal Congestion Cardiovascular: Yes: Pulse Irregular, JVD, S1, S2, Other (PMI non diplaced). No : Gallop, Murmur Respiratory: Yes: CTA Bilaterally. No: Accessory Muscle Use, Rales, Wheezes Gastrointestinal: Yes: Normal Bowel Sounds, Soft. 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 CT chest 05/2017: desd aorta 5.7 cm, ascd aorta 4.6 cm, no sig change from 2016 per report carotids 09/2014: b/l dz r>L, (right 60-79%) carotids 12/2015: jess >70% (same location as prior stenosis seen 09/2014), no sig stenosis on left carotids 04/2017: 80-99% jess, no sig stenosis on left cta 2006: patent knowles/shaggy, occluded svg to OM mibi 09/2008: no ischemia mibi 05/2011: possible minimal inferolateral ischemia echo 08/2014: nl lv s/f, lae, nl rv s/f, rvsp 40, nl bio avr fcn, mild mr, mod tr echo 09/2015: nl lv/rv, mild lae, nl bio avr, mild tr, mild-mod phtn echo 06/2016 ([facility]): normal LV and RV size and fxn; mod ricardo. 1+ MR. bio avr well -seated. mod-severe TR with severe pulm HTN. asc ao 4.8 cm echo 05/2017: mod lve, nl lvef, rv tds, sev ricardo, mild-mod mr, sev tr, sev phtn, no AI/ echo 08/24/18: nl LV size/EF. + posterolateral hypokinesis. nl RV. L/NÉSTOR. nl bioAVR fxn. mild MR/TR. mild pulm HTN (49 mmHg). 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 today's accurate 187. home/office wts were running 189-190. renal fxn essentially stable. reports poor UOP response subjectively to the high dose lasix he's getting. remains with sob and distended neck veins. echo not c/w RV failure (RV reportedly normal). rec 2L daily fluid restriction, and collect all urine for accurate UOP. will give dose of metolazone 2.5 with am lasix--monitor lytes/renal fxn -08/25: cont iv lasix at current dose today -08/27: lost IV access, did not receive IV lasix today - given torsemide 100 mg PO this afternoon, subjectively not much UOP yet. +JVD on exam, Cr stable. when IV access replaced would continue lasix 100 mg IV BID -08/28: loss of IV access has complicated mgmt. received lasix 100 iv BID from 08/24 through 08/26 (with metolazone 2.5 on 08/25).wt responded for the first time to this lasix plus the metolazone on 08/25. wt has stalled 184-185, received torsemide 100 po am, furosemide 80 pm yesterday. renal fxn stable. appears volume up still (JVD to jaw). rec resume high dose loop diuretic with metolazone 2.5. given no IV access, will try torsemide 100 PO bid with metolazone x 1 (will receive only one dose torsemide today, since already received lasix 80 po x 2). reassess labs, JVD, wt in am - cellulitis abx per pmd, ID Pafib (on coumadin): - Rate controlled on BB. - AC with coumadin. Dosing per inr. cad s/p inferior [place] 1997, s/p cabg x3 1983 and 1997: -stable, no angina, nl lvef -cont medical management s/p bio avr - nl function on echo CKD: -baseline creatinine 1.7-2.0 -stable here hld: -cont statin htn: - bp reasonable at present - cont current meds (amlodipine held for lower ext edema) pad, s/p cea, s/p le bypass/stenting: - Claudication is stable. Pt has been evaluated by several vascular surgeons in the past and his le dz is deemed non revascularizable. - Recent carotid US felt to show stable disease including JESS stenosis--this has been monitored by cardiology as outpt, continue routine outpt f/u given no TIA/CVA sx's here AAA: - Has been stable on serial non con chest/abd ct's over the past years. Has seen vascular in past and they felt he is not a surgical candidate due to high risk. - Continue bb, statin, aggressive bp control.
[2018-08-28] MEDS ORDERED: PT OWN MED DRAWER 7, Y5N ONE (10:20)
[2018-08-28] MEDS: POTASSIUM CHLORIDE TABS 20 MEQ TABLET.ER (FP) PO SCH ×3 (10:21→21:26)
[2018-08-28] MEDS: LOSARTAN POTASSIUM 50 MG TABLET (FP) PO SCH (10:23)
[2018-08-28] MEDS: hydrALAZINE HCL 25 MG TABLET (FP) PO SCH ×2 (10:23→21:34)
[2018-08-28] MEDS: CHOLECALCIFEROL (VITAMIN D3) 1,000 UNIT TABLET (FP) PO SCH (10:23)
[2018-08-28] MEDS: guaiFENesin 600 MG TABLET.ER (FP) PO SCH ×2 (10:23→21:26)
[2018-08-28] MEDS: CEPHALEXIN MONOHYDRATE 500 MG CAPSULE (UD) PO SCH ×2 (10:23→21:27)
[2018-08-28] MEDS: TERAZOSIN HCL 1 MG CAPSULE PO SCH (10:24)
[2018-08-28] MEDS: ATENOLOL 25 MG TABLET (FP) PO SCH ×2 (10:24→21:26)
[2018-08-28] MEDS: BUDESONIDE/FORMETEROL FUMARATE 160/4.5 mcg INHALER IH SCH ×2 (10:24→21:28)
[2018-08-28] MEDS: TIOTROPIUM BROMIDE 2.5 MCG (SPIRIVA) RESPIMAT INHALER IH SCH (10:25)
[2018-08-28] MEDS: BACITRACIN 15 GM TUBE TOPICAL OINTMENT TP SCH ×2 (14:30→21:30)
--- NOTE | 2018-08-28 14:58 | PN ---
Progress Note, Physician Chief Complaint: CHF CRI COPD History of Present Illness: NAD Seen by Cardiology No IV access - Current Medication List Current Medications: Active Medications Acetaminophen (Tylenol -) 650 mg PO Q6H PRN PRN Reason: PAIN LEVEL 1-5 Last Admin: 08/28/18 14:11 Dose: 650 mg Atenolol (Tenormin -) 25 mg PO BID [facility] Last Admin: 08/28/18 10:24 Dose: 25 mg Atorvastatin Calcium (Lipitor -) 20 mg PO HS [facility] Last Admin: 08/27/18 21:20 Dose: 20 mg Bacitracin (Bacitracin -) 1 applic TP BID [facility] Last Admin: 08/27/18 21:19 Dose: 1 applic Budesonide/Formoterol Fumarate (Symbicort 160/4.5mcg -) 1 puff IH BID [facility] Last Admin: 08/28/18 10:24 Dose: 1 puff Cephalexin HCl (Keflex -) 500 mg PO BID [facility] Last Admin: 08/28/18 10:23 Dose: 500 mg Cholecalciferol (Vitamin D3 -) 2,000 unit PO DAILY [facility] Last Admin: 08/28/18 10:23 Dose: 2,000 unit Docusate Sodium (Colace -) 100 mg PO TID [facility] Last Admin: 08/28/18 14:10 Dose: Not Given Guaifenesin (Mucinex -) 600 mg PO BID [facility] Last Admin: 08/28/18 10:23 Dose: 600 mg Hydralazine HCl (Apresoline -) 25 mg PO BID [facility] Last Admin: 08/28/18 10:23 Dose: 25 mg Latanoprost (Xalatan 0.005% Eye Drops -) 1 drop OU HS [facility] Last Admin: 08/27/18 21:18 Dose: 1 drop Losartan Potassium (Cozaar -) 50 mg PO DAILY [facility] Last Admin: 08/28/18 10:23 Dose: 50 mg Melatonin (Melatonin) 5 mg PO HS PRN PRN Reason: INSOMNIA Last Admin: 08/28/18 00:51 Dose: 5 mg Metolazone (Zaroxolyn -) 2.5 mg PO ONCE ONE Stop: 08/28/18 14:47 Potassium Chloride (K-Dur -) 40 meq PO BID [facility] Last Admin: 08/28/18 10:21 Dose: 40 meq Sodium Chloride ([place] Nasal [place] -) 2 spray NS Q4H PRN PRN Reason: NASAL CONGESTION Terazosin HCl (Hytrin -) 2 mg PO DAILY [facility] Last Admin: 08/28/18 10:24 Dose: 2 mg Tiotropium [place] (Spiriva Respimat) 2 puff IH DAILY [facility] Last Admin: 08/28/18 10:25 Dose: 2 puff Torsemide (Demadex -) 100 mg PO BID [facility] Warfarin Sodium (Coumadin -) 2 mg PO DAILY@1800 [facility] Last Admin: 08/27/18 19:57 Dose: 2 mg - Objective Vital Signs: Vital Signs Temperature 98 F 08/28/18 14:20 Pulse Rate 63 08/28/18 14:13 Respiratory Rate 20 08/28/18 14:13 Blood Pressure 139/73 08/28/18 14:13 O2 Sat by Pulse Oximetry (%) 100 08/28/18 10:15 Constitutional: Yes: Well Nourished, No Distress, Calm Cardiovascular: Yes: Regular Rate and Rhythm Respiratory: Yes: Regular Gastrointestinal: Yes: WNL Genitourinary: Yes: WNL Musculoskeletal: Yes: Muscle Weakness Extremities: Yes: WNL Edema: Yes Edema: LLE: 2+, RLE: 2+ Peripheral Pulses WNL: Yes Neurological: Yes: Alert, Oriented Psychiatric: Yes: Alert, Oriented Labs: CBC, BMP 08/28/18 07:30 08/28/18 07:30 INR, PTT INR 1.64 (0.83-1.09) H 08/28/18 07:30 Assessment/Plan (1) COPD (chronic obstructive pulmonary disease) Assessment/Plan: -bronchodilators -O2 via NC -keep SpO2 >90% -Symbicrot and Spiriva Code(s): J44.9 - CHRONIC OBSTRUCTIVE PULMONARY DISEASE, UNSPECIFIED (2) Electrolyte abnormality Assessment/Plan: -Change K-dur to 40mg TID -monitor electrolyte daily Code(s): E87.8 - OTH DISORDERS OF ELECTROLYTE AND FLUID BALANCE, NEC (3) Leg wound, left Assessment/Plan: -ID on board -daily dressing changes -Keflex PO -no leukocytosis Code(s): S81.802A - UNSPECIFIED OPEN WOUND, LEFT LOWER LEG, INITIAL ENCOUNTER (4) Acute on chronic diastolic (congestive) heart failure Assessment/Plan: -cardiology on board -Furosemide 80mg BID, changed to torsemide 100 mg po bid -Metolazone added x 1 -1L fluid restriction -daily weight Code(s): I50.33 - ACUTE ON CHRONIC DIASTOLIC (CONGESTIVE) HEART FAILURE (5) Chronic renal insufficiency Assessment/Plan: -BUN/Cr 68/2.1 -monitor renal function -renal on board Code(s): N18.9 - CHRONIC KIDNEY DISEASE, UNSPECIFIED Qualifiers: Chronic kidney disease stage: unspecified stage Qualified Code(s): N18.9 - Chronic kidney disease, unspecified (6) Atrial fibrillation Assessment/Plan: -continue Coumadin, give 4 mg once today -monitor INR daily -INR therapeutic goal 2-3 Code(s): I48.91 - UNSPECIFIED ATRIAL FIBRILLATION Qualifiers: Atrial fibrillation type: chronic Qualified Code(s): I48.2 - Chronic atrial fibrillation Physical therapy
[2018-08-28] MEDS ORDERED: METOLAZONE 2.5 MG TABLET (FP) PO ONE (15:30)
--- NOTE | 2018-08-28 17:15 | PN ---
Progress Note (short form) - Note Progress Note: CKD CHF LEG EDEMA S/P LEFT LEG BLISTER Current Medications Acetaminophen (Tylenol -) 650 mg PO Q6H PRN PRN Reason: PAIN LEVEL 1-5 Last Admin: 08/28/18 14:11 Dose: 650 mg Atenolol (Tenormin -) 25 mg PO BID [facility] Last Admin: 08/28/18 10:24 Dose: 25 mg Atorvastatin Calcium (Lipitor -) 20 mg PO HS [facility] Last Admin: 08/27/18 21:20 Dose: 20 mg Bacitracin (Bacitracin -) 1 applic TP BID [facility] Last Admin: 08/27/18 21:19 Dose: 1 applic Budesonide/Formoterol Fumarate (Symbicort 160/4.5mcg -) 1 puff IH BID [facility] Last Admin: 08/28/18 10:24 Dose: 1 puff Cephalexin HCl (Keflex -) 500 mg PO BID [facility] Last Admin: 08/28/18 10:23 Dose: 500 mg Cholecalciferol (Vitamin D3 -) 2,000 unit PO DAILY [facility] Last Admin: 08/28/18 10:23 Dose: 2,000 unit Docusate Sodium (Colace -) 100 mg PO TID [facility] Last Admin: 08/28/18 14:10 Dose: Not Given Guaifenesin (Mucinex -) 600 mg PO BID [facility] Last Admin: 08/28/18 10:23 Dose: 600 mg Hydralazine HCl (Apresoline -) 25 mg PO BID [facility] Last Admin: 08/28/18 10:23 Dose: 25 mg Latanoprost (Xalatan 0.005% Eye Drops -) 1 drop OU HS [facility] Last Admin: 08/27/18 21:18 Dose: 1 drop Losartan Potassium (Cozaar -) 50 mg PO DAILY [facility] Last Admin: 08/28/18 10:23 Dose: 50 mg Melatonin (Melatonin) 5 mg PO HS PRN PRN Reason: INSOMNIA Last Admin: 08/28/18 00:51 Dose: 5 mg Potassium Chloride (K-Dur -) 40 meq PO TID [facility] Last Admin: 08/28/18 16:08 Dose: 40 meq Sodium Chloride ([place] Nasal [place] -) 2 spray NS Q4H PRN PRN Reason: NASAL CONGESTION Terazosin HCl (Hytrin -) 2 mg PO DAILY [facility] Last Admin: 08/28/18 10:24 Dose: 2 mg Tiotropium [place] (Spiriva Respimat) 2 puff IH DAILY [facility] Last Admin: 08/28/18 10:25 Dose: 2 puff Torsemide (Demadex -) 100 mg PO BIDLASIX [facility] Warfarin Sodium (Coumadin -) 4 mg PO DAILY@1800 [facility] Last Vital Signs Temp Pulse Resp BP Pulse Ox 98 F 63 20 139/73 100 08/28/18 14:20 08/28/18 14:13 08/28/18 14:13 08/28/18 14:13 08/28/18 10:15 ALERT IN NAD NO SOB Lungs clear Heart reg Abd soft nontender Ext no edema CBC, BMP 08/28/18 07:30 08/28/18 07:30 IMP- ckd stable renal function Plan- monitor renal function
[2018-08-28] MEDS: WARFARIN NA 2 MG TABLET (UD) PO SCH (17:48)
[2018-08-28] MEDS: TORSEMIDE 100 MG TABLET PO SCH (17:49)
[2018-08-28] MEDS: ATORVASTATIN CA 20 MG TABLET (FP) PO SCH (21:27)
[2018-08-28] MEDS: LATANOPROST 0.005% OPHTH SOLN 2.5ML BOTTLE OU SCH (21:30)
[2018-08-28] MEDS ORDERED: TORSEMIDE 100 MG TABLET PO SCH (22:00)
[2018-08-29] MEDS: POTASSIUM CHLORIDE TABS 20 MEQ TABLET.ER (FP) PO SCH ×2 (05:08→22:04)
[2018-08-29] MEDS: TORSEMIDE 100 MG TABLET PO SCH ×2 (05:09→14:54)
[2018-08-29] MEDS: DOCUSATE SODIUM 100 MG CAPSULE (FP) PO SCH ×3 (05:10→22:03)
[2018-08-29 07:33] LABS: INR 1.63 (0.83-1.09); PROTHROMBIN TIME (PATIENT) 19.3 SEC (9.7-13.0)
[2018-08-29 07:40] LABS: ANION GAP 7 MMOL/L (8-16); BLOOD UREA NITROGEN 64 mg/dL (7-18); CALCIUM 8.7 mg/dL (8.5-10.1); CHLORIDE 96 mmol/L (98-107); CO2 37 mmol/L (21-32); CREATININE 1.9 mg/dL (0.55-1.3); GLUCOSE,RANDOM 109 mg/dL (74-106); POTASSIUM 3.1 mmol/L (3.5-5.1); SODIUM 140 mmol/L (136-145)
[2018-08-29] MEDS ORDERED: PT OWN MED DRAWER 7, Y5N ONE (09:19)
[2018-08-29] MEDS: LOSARTAN POTASSIUM 50 MG TABLET (FP) PO SCH (09:36)
[2018-08-29] MEDS: CHOLECALCIFEROL (VITAMIN D3) 1,000 UNIT TABLET (FP) PO SCH (09:36)
[2018-08-29] MEDS: CEPHALEXIN MONOHYDRATE 500 MG CAPSULE (UD) PO SCH ×2 (09:36→22:17)
[2018-08-29] MEDS: guaiFENesin 600 MG TABLET.ER (FP) PO SCH ×2 (09:36→22:17)
[2018-08-29] MEDS: hydrALAZINE HCL 25 MG TABLET (FP) PO SCH ×2 (09:36→22:17)
[2018-08-29] MEDS: ATENOLOL 25 MG TABLET (FP) PO SCH ×2 (09:36→22:17)
[2018-08-29] MEDS: BACITRACIN 15 GM TUBE TOPICAL OINTMENT TP SCH ×2 (09:37→22:03)
[2018-08-29] MEDS: TERAZOSIN HCL 1 MG CAPSULE PO SCH (09:37)
[2018-08-29] MEDS: TIOTROPIUM BROMIDE 2.5 MCG (SPIRIVA) RESPIMAT INHALER IH SCH (09:38)
[2018-08-29] MEDS: BUDESONIDE/FORMETEROL FUMARATE 160/4.5 mcg INHALER IH SCH ×2 (09:38→22:19)
--- NOTE | 2018-08-29 10:08 | PN ---
Progress Note, Physician Chief Complaint: CHF CRI COPD History of Present Illness: NAD Seen by Cardiology No IV access - Current Medication List Current Medications: Active Medications Acetaminophen (Tylenol -) 650 mg PO Q6H PRN PRN Reason: PAIN LEVEL 1-5 Last Admin: 08/28/18 14:11 Dose: 650 mg Atenolol (Tenormin -) 25 mg PO BID [facility] Last Admin: 08/29/18 09:36 Dose: 25 mg Atorvastatin Calcium (Lipitor -) 20 mg PO HS [facility] Last Admin: 08/28/18 21:27 Dose: 20 mg Bacitracin (Bacitracin -) 1 applic TP BID [facility] Last Admin: 08/29/18 09:37 Dose: 1 applic Budesonide/Formoterol Fumarate (Symbicort 160/4.5mcg -) 1 puff IH BID [facility] Last Admin: 08/29/18 09:38 Dose: 1 puff Cephalexin HCl (Keflex -) 500 mg PO BID [facility] Last Admin: 08/29/18 09:36 Dose: 500 mg Cholecalciferol (Vitamin D3 -) 2,000 unit PO DAILY [facility] Last Admin: 08/29/18 09:36 Dose: 2,000 unit Docusate Sodium (Colace -) 100 mg PO TID [facility] Last Admin: 08/29/18 05:10 Dose: Not Given Guaifenesin (Mucinex -) 600 mg PO BID [facility] Last Admin: 08/29/18 09:36 Dose: 600 mg Hydralazine HCl (Apresoline -) 25 mg PO BID [facility] Last Admin: 08/29/18 09:36 Dose: 25 mg Latanoprost (Xalatan 0.005% Eye Drops -) 1 drop OU HS [facility] Last Admin: 08/28/18 21:30 Dose: 1 drop Losartan Potassium (Cozaar -) 50 mg PO DAILY [facility] Last Admin: 08/29/18 09:36 Dose: 50 mg Melatonin (Melatonin) 5 mg PO HS PRN PRN Reason: INSOMNIA Last Admin: 08/28/18 00:51 Dose: 5 mg Potassium Chloride (K-Dur -) 40 meq PO TID [facility] Last Admin: 08/29/18 05:08 Dose: 40 meq Sodium Chloride ([place] Nasal [place] -) 2 spray NS Q4H PRN PRN Reason: NASAL CONGESTION Terazosin HCl (Hytrin -) 2 mg PO DAILY [facility] Last Admin: 08/29/18 09:37 Dose: 2 mg Tiotropium [place] (Spiriva Respimat) 2 puff IH DAILY [facility] Last Admin: 08/29/18 09:38 Dose: 2 puff Torsemide (Demadex -) 100 mg PO BIDLASIX [facility] Last Admin: 08/29/18 05:09 Dose: 100 mg Warfarin Sodium (Coumadin -) 4 mg PO DAILY@1800 [facility] Last Admin: 08/28/18 17:48 Dose: 4 mg - Objective Vital Signs: Vital Signs Temperature 97.6 F 08/28/18 18:04 Pulse Rate 74 08/29/18 09:46 Respiratory Rate 18 08/29/18 09:46 Blood Pressure 152/67 08/29/18 09:46 O2 Sat by Pulse Oximetry (%) 100 08/28/18 21:00 Constitutional: Yes: Well Nourished, No Distress, Calm Cardiovascular: Yes: Regular Rate and Rhythm Respiratory: Yes: Regular Gastrointestinal: Yes: Normal Bowel Sounds, Soft Musculoskeletal: Yes: WNL Extremities: Yes: WNL Edema: Yes Edema: LLE: 2+, RLE: 2+ Peripheral Pulses WNL: Yes Neurological: Yes: Alert, Oriented Psychiatric: Yes: Alert, Oriented Labs: CBC, BMP 08/28/18 07:30 08/29/18 06:10 INR, PTT INR 1.63 (0.83-1.09) H 08/29/18 06:10 Problem List - Problems (1) Hypokalemia Assessment/Plan: -K-3.1 -2/2 to diuretics -replenish with KCL 40 meq po once- changing it to 40 meq po qid -KCl 10 meq x 3, IV line inserted, LUE -monitor trend Code(s): E87.6 - HYPOKALEMIA Assessment/Plan (1) COPD (chronic obstructive pulmonary disease) Assessment/Plan: -bronchodilators -O2 via NC -keep SpO2 >90% -Symbicrot and Spiriva Code(s): J44.9 - CHRONIC OBSTRUCTIVE PULMONARY DISEASE, UNSPECIFIED (2) Electrolyte abnormality Assessment/Plan: -Change K-dur to 40mg TID -monitor electrolyte daily Code(s): E87.8 - OTH DISORDERS OF ELECTROLYTE AND FLUID BALANCE, NEC (3) Leg wound, left Assessment/Plan: -ID on board -daily dressing changes -Keflex PO -no leukocytosis Code(s): S81.802A - UNSPECIFIED OPEN WOUND, LEFT LOWER LEG, INITIAL ENCOUNTER (4) Acute on chronic diastolic (congestive) heart failure Assessment/Plan: -cardiology on board -Furosemide 80mg BID, changed to torsemide 100 mg po bid -Metolazone added x 1 -1L fluid restriction -daily weight Code(s): I50.33 - ACUTE ON CHRONIC DIASTOLIC (CONGESTIVE) HEART FAILURE (5) Chronic renal insufficiency Assessment/Plan: -BUN/Cr 68/2.1 -monitor renal function -renal on board Code(s): N18.9 - CHRONIC KIDNEY DISEASE, UNSPECIFIED Qualifiers: Chronic kidney disease stage: unspecified stage Qualified Code(s): N18.9 - Chronic kidney disease, unspecified (6) Atrial fibrillation Assessment/Plan: -continue Coumadin, give 4 mg daily and adjust -monitor INR daily -INR therapeutic goal 2-3 Code(s): I48.91 - UNSPECIFIED ATRIAL FIBRILLATION Qualifiers: Atrial fibrillation type: chronic Qualified Code(s): I48.2 - Chronic atrial fibrillation Physical therapy
[2018-08-29] MEDS: ACETAMINOPHEN 325 MG TABLET (FP) PO PRN ×2 (10:25→19:11)
[2018-08-29] MEDS ORDERED: POTASSIUM CHLORIDE TABS 20 MEQ TABLET.ER (FP) PO ONE (12:35)
[2018-08-29] MEDS: KCL 10 MEQ IVPB 10 MEQ/100 ML INFUS.BAG IVPB SCH ×3 (14:30→17:26)
[2018-08-29] MEDS: WARFARIN NA 2 MG TABLET (UD) PO SCH (17:26)
--- NOTE | 2018-08-29 20:52 | PN ---
Progress Note (short form) - Note Progress Note: CKD CHF LEG EDEMA S/P LEFT LEG BLISTER Current Medications Acetaminophen (Tylenol -) 650 mg PO Q6H PRN PRN Reason: PAIN LEVEL 1-5 Last Admin: 08/29/18 19:11 Dose: 650 mg Atenolol (Tenormin -) 25 mg PO BID [facility] Last Admin: 08/29/18 09:36 Dose: 25 mg Atorvastatin Calcium (Lipitor -) 20 mg PO HS [facility] Last Admin: 08/28/18 21:27 Dose: 20 mg Bacitracin (Bacitracin -) 1 applic TP BID [facility] Last Admin: 08/29/18 09:37 Dose: 1 applic Budesonide/Formoterol Fumarate (Symbicort 160/4.5mcg -) 1 puff IH BID [facility] Last Admin: 08/29/18 09:38 Dose: 1 puff Cephalexin HCl (Keflex -) 500 mg PO BID [facility] Last Admin: 08/29/18 09:36 Dose: 500 mg Cholecalciferol (Vitamin D3 -) 2,000 unit PO DAILY [facility] Last Admin: 08/29/18 09:36 Dose: 2,000 unit Docusate Sodium (Colace -) 100 mg PO TID [facility] Last Admin: 08/29/18 14:54 Dose: Not Given Guaifenesin (Mucinex -) 600 mg PO BID [facility] Last Admin: 08/29/18 09:36 Dose: 600 mg Hydralazine HCl (Apresoline -) 25 mg PO BID [facility] Last Admin: 08/29/18 09:36 Dose: 25 mg Lactobacillus Acidophilus (Bacid -) 1 tab PO DAILY [facility] Latanoprost (Xalatan 0.005% Eye Drops -) 1 drop OU HS [facility] Last Admin: 08/28/18 21:30 Dose: 1 drop Losartan Potassium (Cozaar -) 50 mg PO DAILY [facility] Last Admin: 08/29/18 09:36 Dose: 50 mg Melatonin (Melatonin) 5 mg PO HS PRN PRN Reason: INSOMNIA Last Admin: 08/28/18 00:51 Dose: 5 mg Potassium Chloride (K-Dur -) 40 meq PO QID [facility] Sodium Chloride ([place] Nasal [place] -) 2 spray NS Q4H PRN PRN Reason: NASAL CONGESTION Terazosin HCl (Hytrin -) 2 mg PO DAILY [facility] Last Admin: 08/29/18 09:37 Dose: 2 mg Tiotropium [place] (Spiriva Respimat) 2 puff IH DAILY [facility] Last Admin: 08/29/18 09:38 Dose: 2 puff Torsemide (Demadex -) 100 mg PO BIDLASIX [facility] Last Admin: 08/29/18 14:54 Dose: 100 mg Warfarin Sodium (Coumadin -) 4 mg PO DAILY@1800 [facility] Last Admin: 08/29/18 17:26 Dose: 4 mg Last Vital Signs Temp Pulse Resp BP Pulse Ox 98.1 F 56 L 20 132/67 100 08/29/18 18:10 08/29/18 18:10 08/29/18 18:10 08/29/18 18:10 08/29/18 09:00 ALERT IN NAD NO SOB Lungs clear Heart reg Abd soft nontender Ext no edema CBC, BMP 08/29/18 06:10 CBC, BMP 08/28/18 07:30 08/28/18 07:30 IMP- ckd stable renal function improving azotemia from yesterday weight 181 lbs from 189 on admission Plan- continue diuretics while monitoring renal function
[2018-08-29] MEDS: ATORVASTATIN CA 20 MG TABLET (FP) PO SCH (22:17)
[2018-08-29] MEDS: MELATONIN 5 MG TABLETS PO PRN (22:17)
[2018-08-29] MEDS: LATANOPROST 0.005% OPHTH SOLN 2.5ML BOTTLE OU SCH (22:20)
[2018-08-30] MEDS: DOCUSATE SODIUM 100 MG CAPSULE (FP) PO SCH ×3 (05:07→13:34)
[2018-08-30] MEDS: TORSEMIDE 100 MG TABLET PO SCH ×2 (05:08→13:30)
[2018-08-30 07:13] LABS: INR 1.64 (0.83-1.09); PROTHROMBIN TIME (PATIENT) 19.5 SEC (9.7-13.0)
[2018-08-30 07:25] LABS: ANION GAP 8 MMOL/L (8-16); BLOOD UREA NITROGEN 66 mg/dL (7-18); CALCIUM 8.3 mg/dL (8.5-10.1); CHLORIDE 97 mmol/L (98-107); CO2 36 mmol/L (21-32); CREATININE 2.2 mg/dL (0.55-1.3); GLUCOSE,RANDOM 106 mg/dL (74-106); POTASSIUM 3.3 mmol/L (3.5-5.1); SODIUM 141 mmol/L (136-145)
[2018-08-30] MEDS: ACETAMINOPHEN 325 MG TABLET (FP) PO PRN (08:04)
[2018-08-30] MEDS ORDERED: PT OWN MED DRAWER 7, Y5N ONE ×5 (09:09→13:14)
[2018-08-30] MEDS: BACITRACIN 15 GM TUBE TOPICAL OINTMENT TP SCH ×2 (09:22→23:33)
[2018-08-30] MEDS: ATENOLOL 25 MG TABLET (FP) PO SCH ×2 (09:23→21:13)
[2018-08-30] MEDS: CEPHALEXIN MONOHYDRATE 500 MG CAPSULE (UD) PO SCH ×2 (09:23→21:13)
[2018-08-30] MEDS: LOSARTAN POTASSIUM 50 MG TABLET (FP) PO SCH (09:23)
[2018-08-30] MEDS: TERAZOSIN HCL 1 MG CAPSULE PO SCH (09:23)
[2018-08-30] MEDS: guaiFENesin 600 MG TABLET.ER (FP) PO SCH ×2 (09:23→21:14)
[2018-08-30] MEDS: LACTOBACILLUS ACIDOPHILUS 1 TABLET PO SCH (09:23)
[2018-08-30] MEDS: CHOLECALCIFEROL (VITAMIN D3) 1,000 UNIT TABLET (FP) PO SCH (09:23)
[2018-08-30] MEDS: POTASSIUM CHLORIDE TABS 20 MEQ TABLET.ER (FP) PO SCH ×4 (09:23→21:13)
[2018-08-30] MEDS: hydrALAZINE HCL 25 MG TABLET (FP) PO SCH ×2 (09:23→21:13)
[2018-08-30] MEDS: TIOTROPIUM BROMIDE 2.5 MCG (SPIRIVA) RESPIMAT INHALER IH SCH (09:24)
[2018-08-30] MEDS: BUDESONIDE/FORMETEROL FUMARATE 160/4.5 mcg INHALER IH SCH ×2 (09:26→21:14)
--- NOTE | 2018-08-30 13:21 | PN ---
Progress Note (short form) - Note Progress Note: Renal follow up for [place] Pt seen and examined at the bedside feels well. denies any sob, cp, abd pain, n/V/D leg edema is getting better making a good amount of urine appetite is good Vital Signs Temperature 97.9 F 08/30/18 13:02 Pulse Rate 57 L 08/30/18 13:02 Respiratory Rate 16 08/30/18 13:02 Blood Pressure 102/55 L 08/30/18 13:02 O2 Sat by Pulse Oximetry (%) 99 08/30/18 09:00 NAD Trace edema in LE CTA CBC, BMP 08/28/18 07:30 08/30/18 06:10 Current Medications Acetaminophen (Tylenol -) 650 mg PO Q6H PRN PRN Reason: PAIN LEVEL 1-5 Last Admin: 08/30/18 08:04 Dose: 650 mg Atenolol (Tenormin -) 25 mg PO BID [facility] Last Admin: 08/30/18 09:23 Dose: 25 mg Atorvastatin Calcium (Lipitor -) 20 mg PO HS [facility] Last Admin: 08/29/18 22:17 Dose: 20 mg Bacitracin (Bacitracin -) 1 applic TP BID [facility] Last Admin: 08/30/18 09:22 Dose: 1 applic Budesonide/Formoterol Fumarate (Symbicort 160/4.5mcg -) 1 puff IH BID [facility] Last Admin: 08/30/18 09:26 Dose: 1 puff Cephalexin HCl (Keflex -) 500 mg PO BID [facility] Last Admin: 08/30/18 09:23 Dose: 500 mg Cholecalciferol (Vitamin D3 -) 2,000 unit PO DAILY [facility] Last Admin: 08/30/18 09:23 Dose: 2,000 unit Docusate Sodium (Colace -) 100 mg PO TID [facility] Last Admin: 08/30/18 05:07 Dose: Not Given Guaifenesin (Mucinex -) 600 mg PO BID [facility] Last Admin: 08/30/18 09:23 Dose: 600 mg Hydralazine HCl (Apresoline -) 25 mg PO BID [facility] Last Admin: 08/30/18 09:23 Dose: 25 mg Lactobacillus Acidophilus (Bacid -) 1 tab PO DAILY [facility] Last Admin: 08/30/18 09:23 Dose: 1 tab Latanoprost (Xalatan 0.005% Eye Drops -) 1 drop OU HS [facility] Last Admin: 08/29/18 22:20 Dose: 1 drop Losartan Potassium (Cozaar -) 50 mg PO DAILY [facility] Last Admin: 08/30/18 09:23 Dose: 50 mg Melatonin (Melatonin) 5 mg PO HS PRN PRN Reason: INSOMNIA Last Admin: 08/29/18 22:17 Dose: 5 mg Potassium Chloride (K-Dur -) 40 meq PO QID [facility] Last Admin: 08/30/18 09:23 Dose: 40 meq Sodium Chloride ([place] Nasal [place] -) 2 spray NS Q4H PRN PRN Reason: NASAL CONGESTION Terazosin HCl (Hytrin -) 2 mg PO DAILY [facility] Last Admin: 08/30/18 09:23 Dose: 2 mg Tiotropium [place] (Spiriva Respimat) 2 puff IH DAILY [facility] Last Admin: 08/30/18 09:24 Dose: 2 puff Torsemide (Demadex -) 100 mg PO BIDLASIX [facility] Last Admin: 08/30/18 05:08 Dose: 100 mg Warfarin Sodium (Coumadin -) 4 mg PO DAILY@1800 [facility] Last Admin: 08/29/18 17:26 Dose: 4 mg This is a 87 year old gentleman with hx of CKD (baseline Cr ~1.5-2), COPD, CHF, CAD s/p CABG, hyperlipidemia, DVT, Hypertension, DM who presented with left LE wound. #LE wound #LE edema #CKD stage 3 #CAD #COPD #Hypertension Renal function stable Continue oral torsemide BID continue KCL supplamentation stable for discharge from renal perspective with close outpatient follow up Low salt diet Thank you Ko Adler DO
--- NOTE | 2018-08-30 13:53 | PN ---
Progress Note (short form) - Note Progress Note: s: no chest pain, palps. dyspnea and edema resolved. Current Medications Acetaminophen (Tylenol -) 650 mg PO Q6H PRN PRN Reason: PAIN LEVEL 1-5 Last Admin: 08/30/18 08:04 Dose: 650 mg Atenolol (Tenormin -) 25 mg PO BID [facility] Last Admin: 08/30/18 09:23 Dose: 25 mg Atorvastatin Calcium (Lipitor -) 20 mg PO HS [facility] Last Admin: 08/29/18 22:17 Dose: 20 mg Bacitracin (Bacitracin -) 1 applic TP BID [facility] Last Admin: 08/30/18 09:22 Dose: 1 applic Budesonide/Formoterol Fumarate (Symbicort 160/4.5mcg -) 1 puff IH BID [facility] Last Admin: 08/30/18 09:26 Dose: 1 puff Cephalexin HCl (Keflex -) 500 mg PO BID [facility] Last Admin: 08/30/18 09:23 Dose: 500 mg Cholecalciferol (Vitamin D3 -) 2,000 unit PO DAILY [facility] Last Admin: 08/30/18 09:23 Dose: 2,000 unit Docusate Sodium (Colace -) 100 mg PO TID [facility] Last Admin: 08/30/18 13:34 Dose: Not Given Guaifenesin (Mucinex -) 600 mg PO BID [facility] Last Admin: 08/30/18 09:23 Dose: 600 mg Hydralazine HCl (Apresoline -) 25 mg PO BID [facility] Last Admin: 08/30/18 09:23 Dose: 25 mg Lactobacillus Acidophilus (Bacid -) 1 tab PO DAILY [facility] Last Admin: 08/30/18 09:23 Dose: 1 tab Latanoprost (Xalatan 0.005% Eye Drops -) 1 drop OU HS [facility] Last Admin: 08/29/18 22:20 Dose: 1 drop Losartan Potassium (Cozaar -) 50 mg PO DAILY [facility] Last Admin: 08/30/18 09:23 Dose: 50 mg Melatonin (Melatonin) 5 mg PO HS PRN PRN Reason: INSOMNIA Last Admin: 08/29/18 22:17 Dose: 5 mg Potassium Chloride (K-Dur -) 40 meq PO QID [facility] Last Admin: 08/30/18 13:30 Dose: 40 meq Sodium Chloride ([place] Nasal [place] -) 2 spray NS Q4H PRN PRN Reason: NASAL CONGESTION Terazosin HCl (Hytrin -) 2 mg PO DAILY [facility] Last Admin: 08/30/18 09:23 Dose: 2 mg Tiotropium [place] (Spiriva Respimat) 2 puff IH DAILY [facility] Last Admin: 08/30/18 09:24 Dose: 2 puff Torsemide (Demadex -) 100 mg PO BIDLASIX [facility] Last Admin: 08/30/18 13:30 Dose: 100 mg Warfarin Sodium (Coumadin -) 4 mg PO DAILY@1800 [facility] Last Admin: 08/29/18 17:26 Dose: 4 mg Vital Signs Period Temp Pulse Resp BP Sys/Hernandez Pulse Ox Last 24 Hr 97.8 F-98.1 F 56-72 16-20 102-152/55-95 99-100 Constitutional: Yes: No Distress, Calm Eyes: No: Sclera Icterus HENT: No: Nasal Congestion Cardiovascular: Yes: Pulse Irregular, JVD, S1, S2, Other (PMI non diplaced). No : Gallop, Murmur Respiratory: Yes: CTA Bilaterally. No: Accessory Muscle Use, Rales, Wheezes Gastrointestinal: Yes: Normal Bowel Sounds, Soft. 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 CT chest 05/2017: desd aorta 5.7 cm, ascd aorta 4.6 cm, no sig change from 2016 per report carotids 09/2014: b/l dz r>L, (right 60-79%) carotids 12/2015: jess >70% (same location as prior stenosis seen 09/2014), no sig stenosis on left carotids 04/2017: 80-99% jess, no sig stenosis on left cta 2006: patent knowles/shaggy, occluded svg to OM mibi 09/2008: no ischemia mibi 05/2011: possible minimal inferolateral ischemia echo 08/2014: nl lv s/f, lae, nl rv s/f, rvsp 40, nl bio avr fcn, mild mr, mod tr echo 09/2015: nl lv/rv, mild lae, nl bio avr, mild tr, mild-mod phtn echo 06/2016 ([facility]): normal LV and RV size and fxn; mod ricardo. 1+ MR. bio avr well -seated. mod-severe TR with severe pulm HTN. asc ao 4.8 cm echo 05/2017: mod lve, nl lvef, rv tds, sev ricardo, mild-mod mr, sev tr, sev phtn, no AI/ echo 08/24/18: nl LV size/EF. + posterolateral hypokinesis. nl RV. L/NÉSTOR. nl bioAVR fxn. mild MR/TR. mild pulm HTN (49 mmHg). 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 today's accurate 187. home/office wts were running 189-190. renal fxn essentially stable. reports poor UOP response subjectively to the high dose lasix he's getting. remains with sob and distended neck veins. echo not c/w RV failure (RV reportedly normal). rec 2L daily fluid restriction, and collect all urine for accurate UOP. will give dose of metolazone 2.5 with am lasix--monitor lytes/renal fxn -08/25: cont iv lasix at current dose today -08/27: lost IV access, did not receive IV lasix today - given torsemide 100 mg PO this afternoon, subjectively not much UOP yet. +JVD on exam, Cr stable. when IV access replaced would continue lasix 100 mg IV BID -08/28: loss of IV access has complicated mgmt. received lasix 100 iv BID from 08/24 through 08/26 (with metolazone 2.5 on 08/25).wt responded for the first time to this lasix plus the metolazone on 08/25. wt has stalled 184-185, received torsemide 100 po am, furosemide 80 pm yesterday. renal fxn stable. appears volume up still (JVD to jaw). rec resume high dose loop diuretic with metolazone 2.5. given no IV access, will try torsemide 100 PO bid with metolazone x 1 (will receive only one dose torsemide today, since already received lasix 80 po x 2). reassess labs, JVD, wt in am -08/30 wt down to 182 from 189 on admission. receiving torsemide 100 mg BID, Cr stable. continue current torsemide dose 100 mg BID, follow up with Dr Cespedes - cellulitis abx per pmd, ID - stable for discharge from cardiac perspective Pafib (on coumadin): - Rate controlled on BB. - AC with coumadin. Dosing per inr. cad s/p inferior [place] 1997, s/p cabg x3 1983 and 1997: -stable, no angina, nl lvef -cont medical management s/p bio avr - nl function on echo CKD: -baseline creatinine 1.7-2.0 -stable here hld: -cont statin htn: - bp reasonable at present - cont current meds (amlodipine held for lower ext edema) pad, s/p cea, s/p le bypass/stenting: - Claudication is stable. Pt has been evaluated by several vascular surgeons in the past and his le dz is deemed non revascularizable. - Recent carotid US felt to show stable disease including JESS stenosis--this has been monitored by cardiology as outpt, continue routine outpt f/u given no TIA/CVA sx's here AAA: - Has been stable on serial non con chest/abd ct's over the past years. Has seen vascular in past and they felt he is not a surgical candidate due to high risk. - Continue bb, statin, aggressive bp control.
--- NOTE | 2018-08-30 15:39 | PN ---
Progress Note, Physician Chief Complaint: LLE wound CHF CRI COPD History of Present Illness: Previous notes and events reviewed awake and alert NAD patient states breathing improving denies chest pain complain of diarrhea x 5 episodes today - Current Medication List Current Medications: Active Medications Acetaminophen (Tylenol -) 650 mg PO Q6H PRN PRN Reason: PAIN LEVEL 1-5 Last Admin: 08/30/18 08:04 Dose: 650 mg Atenolol (Tenormin -) 25 mg PO BID [facility] Last Admin: 08/30/18 09:23 Dose: 25 mg Atorvastatin Calcium (Lipitor -) 20 mg PO HS [facility] Last Admin: 08/29/18 22:17 Dose: 20 mg Bacitracin (Bacitracin -) 1 applic TP BID [facility] Last Admin: 08/30/18 09:22 Dose: 1 applic Budesonide/Formoterol Fumarate (Symbicort 160/4.5mcg -) 1 puff IH BID [facility] Last Admin: 08/30/18 09:26 Dose: 1 puff Cephalexin HCl (Keflex -) 500 mg PO BID [facility] Last Admin: 08/30/18 09:23 Dose: 500 mg Cholecalciferol (Vitamin D3 -) 2,000 unit PO DAILY [facility] Last Admin: 08/30/18 09:23 Dose: 2,000 unit Docusate Sodium (Colace -) 100 mg PO TID [facility] Last Admin: 08/30/18 13:34 Dose: Not Given Guaifenesin (Mucinex -) 600 mg PO BID [facility] Last Admin: 08/30/18 09:23 Dose: 600 mg Hydralazine HCl (Apresoline -) 25 mg PO BID [facility] Last Admin: 08/30/18 09:23 Dose: 25 mg Lactobacillus Acidophilus (Bacid -) 1 tab PO DAILY [facility] Last Admin: 08/30/18 09:23 Dose: 1 tab Latanoprost (Xalatan 0.005% Eye Drops -) 1 drop OU HS [facility] Last Admin: 08/29/18 22:20 Dose: 1 drop Losartan Potassium (Cozaar -) 50 mg PO DAILY [facility] Last Admin: 08/30/18 09:23 Dose: 50 mg Melatonin (Melatonin) 5 mg PO HS PRN PRN Reason: INSOMNIA Last Admin: 08/29/18 22:17 Dose: 5 mg Potassium Chloride (K-Dur -) 40 meq PO QID [facility] Last Admin: 04/15/19 13:30 Dose: 40 meq Sodium Chloride ([place] Nasal [place] -) 2 spray NS Q4H PRN PRN Reason: NASAL CONGESTION Terazosin HCl (Hytrin -) 2 mg PO DAILY [facility] Last Admin: 08/30/18 09:23 Dose: 2 mg Tiotropium [place] (Spiriva Respimat) 2 puff IH DAILY [facility] Last Admin: 08/30/18 09:24 Dose: 2 puff Torsemide (Demadex -) 100 mg PO BIDLASIX [facility] Last Admin: 08/30/18 13:30 Dose: 100 mg Warfarin Sodium (Coumadin -) 4 mg PO DAILY@1800 [facility] Last Admin: 08/29/18 17:26 Dose: 4 mg - Objective Vital Signs: Vital Signs Temperature 97.9 F 08/30/18 13:02 Pulse Rate 57 L 08/30/18 13:02 Respiratory Rate 16 08/30/18 13:02 Blood Pressure 102/55 L 08/30/18 13:02 O2 Sat by Pulse Oximetry (%) 99 08/30/18 09:00 Constitutional: Yes: No Distress Eyes: Yes: Conjunctiva Clear HENT: Yes: Atraumatic Cardiovascular: Yes: Regular Rate and Rhythm Respiratory: Yes: Regular, CTA Bilaterally Gastrointestinal: Yes: Normal Bowel Sounds, Soft Musculoskeletal: Yes: Muscle Weakness Extremities: Yes: WNL Edema: No Wound/Incision: Yes: Dressing Dry and Intact Neurological: Yes: Alert, Oriented Psychiatric: Yes: Alert, Oriented Labs: CBC, BMP 08/28/18 07:30 08/30/18 06:10 INR, PTT INR 1.64 (0.83-1.09) H 08/30/18 06:10 Problem List - Problems (1) COPD (chronic obstructive pulmonary disease) Assessment/Plan: -bronchodilators -O2 via NC -keep SpO2 >90% -Symbicrot and Spiriva Code(s): J44.9 - CHRONIC OBSTRUCTIVE PULMONARY DISEASE, UNSPECIFIED (2) Electrolyte abnormality Assessment/Plan: -continue with K-dur 40mg qid -monitor electrolyte daily Code(s): E87.8 - OTH DISORDERS OF ELECTROLYTE AND FLUID BALANCE, NEC (3) Leg wound, left Assessment/Plan: -ID on board -daily dressing changes -Keflex PO -no leukocytosis Code(s): S81.802A - UNSPECIFIED OPEN WOUND, LEFT LOWER LEG, INITIAL ENCOUNTER (4) Acute on chronic diastolic (congestive) heart failure Assessment/Plan: -cardiology on board -Torsemide 100mg BID -1L fluid restriction -daily weight Code(s): I50.33 - ACUTE ON CHRONIC DIASTOLIC (CONGESTIVE) HEART FAILURE (5) Chronic renal insufficiency Assessment/Plan: -BUN/Cr 66/2.2 -monitor renal function -renal on board Code(s): N18.9 - CHRONIC KIDNEY DISEASE, UNSPECIFIED Qualifiers: Chronic kidney disease stage: unspecified stage Qualified Code(s): N18.9 - Chronic kidney disease, unspecified (6) Atrial fibrillation Assessment/Plan: -continue Coumadin -current INR 1.64--increase Coumadin to 4.5mg -monitor INR daily -INR therapeutic goal 2-3 Code(s): I48.91 - UNSPECIFIED ATRIAL FIBRILLATION Qualifiers: Atrial fibrillation type: chronic Qualified Code(s): I48.2 - Chronic atrial fibrillation Assessment/Plan see problem list dvt ppx
[2018-08-30] MEDS ORDERED: WARFARIN NA 2 MG TABLET (UD) PO SCH (18:00)
[2018-08-30] MEDS ORDERED: WARFARIN NA 1 MG TABLET (FP) PO SCH (18:00)
[2018-08-30] MEDS: ATORVASTATIN CA 20 MG TABLET (FP) PO SCH (21:13)
[2018-08-30] MEDS: LATANOPROST 0.005% OPHTH SOLN 2.5ML BOTTLE OU SCH (21:14)
[2018-08-30] MEDS: MELATONIN 5 MG TABLETS PO PRN (23:18)
[2018-08-31] MEDS: TORSEMIDE 100 MG TABLET PO SCH (05:45)
[2018-08-31 07:13] VITALS: BP 137/65; PULSE 59; TEMP 97.2
[2018-08-31 07:18] LABS: HEMATOCRIT 29.3 % (35.4-49); MCH 30.5 pg (25.7-33.7); MCHC 34.1 g/dl (32.0-35.9); MEAN CELL VOLUME 89.5 fl (80-96); MEAN PLT VOLUME 8.5 fl (7.5-11.1); PLATELET COUNT 123 K/MM3 (134-434); RBC 3.27 M/mm3 (4.00-5.60); RDW 18.1 % (11.9-15.9)
[2018-08-31 07:34] LABS: ANION GAP 7 MMOL/L (8-16); BLOOD UREA NITROGEN 65 mg/dL (7-18); CALCIUM 8.9 mg/dL (8.5-10.1); CHLORIDE 99 mmol/L (98-107); CO2 36 mmol/L (21-32); CREATININE 2.1 mg/dL (0.55-1.3); GLUCOSE,RANDOM 99 mg/dL (74-106); POTASSIUM 3.2 mmol/L (3.5-5.1); SODIUM 142 mmol/L (136-145)
[2018-08-31 08:53] LABS: INR 1.94 (0.83-1.09); PROTHROMBIN TIME (PATIENT) 23.1 SEC (9.7-13.0)
--- NOTE | 2018-08-31 09:14 | DS ---
Physical Examination Vital Signs: Vital Signs Temperature 97.2 F L 08/31/18 06:00 Pulse Rate 59 L 08/31/18 06:00 Respiratory Rate 18 08/31/18 06:00 Blood Pressure 137/65 08/31/18 06:00 O2 Sat by Pulse Oximetry (%) 100 08/30/18 21:00 Cardiovascular: Yes: S1, S2 Respiratory: Yes: Regular, CTA Bilaterally Gastrointestinal: Yes: Normal Bowel Sounds, Soft. No: Tenderness Edema: Yes (IMPROVED) Labs: CBC, BMP 08/31/18 06:30 08/31/18 06:30 Discharge Summary Reason For Visit: CONGESTIVE HEART FAILURE, ATRIAL FIBRILLATION Current Active Problems COPD (chronic obstructive pulmonary disease) (Acute) Electrolyte abnormality (Acute) Hypokalemia (Acute) Leg wound, left (Acute) Venous stasis (Acute) Hospital Course: Problems (1) COPD (chronic obstructive pulmonary disease) Assessment/Plan: -bronchodilators -O2 via NC -keep SpO2 >90% -Symbicrot and Spiriva Code(s): J44.9 - CHRONIC OBSTRUCTIVE PULMONARY DISEASE, UNSPECIFIED (2) Electrolyte abnormality Assessment/Plan: -continue with K-dur 40mg qid -monitor electrolyte daily Code(s): E87.8 - OTH DISORDERS OF ELECTROLYTE AND FLUID BALANCE, NEC (3) Leg wound, left Assessment/Plan: -ID on board -daily dressing changes -Keflex PO -no leukocytosis Code(s): S81.802A - UNSPECIFIED OPEN WOUND, LEFT LOWER LEG, INITIAL ENCOUNTER (4) Acute on chronic diastolic (congestive) heart failure Assessment/Plan: -cardiology on board -Torsemide 100mg BID -1L fluid restriction -daily weight Code(s): I50.33 - ACUTE ON CHRONIC DIASTOLIC (CONGESTIVE) HEART FAILURE (5) Chronic renal insufficiency Assessment/Plan: -BUN/Cr 66/2.2 -monitor renal function -renal on board Code(s): N18.9 - CHRONIC KIDNEY DISEASE, UNSPECIFIED Qualifiers: Chronic kidney disease stage: unspecified stage Qualified Code(s): N18.9 - Chronic kidney disease, unspecified (6) Atrial fibrillation Assessment/Plan: -continue Coumadin -current INR 1.9 -monitor INR daily -INR therapeutic goal 2-3 Code(s): I48.91 - UNSPECIFIED ATRIAL FIBRILLATION Qualifiers: Atrial fibrillation type: chronic Qualified Code(s): I48.2 - Chronic atrial fibrillation Condition: Improved - Instructions Referrals: Linh Mobley MD [Primary Care Provider] - 1 Week Disposition: HOME - Home Medications Comprehensive Discharge Medication List: Ambulatory Orders Ascorbic Acid [Vitamin C] 500 mg PO DAILY 06/16/17 Atenolol [Tenormin -] 25 mg PO BID 06/16/17 Atorvastatin Ca [Lipitor] 20 mg PO HS 06/16/17 Bifidobacterium Infantis [Align] 10.5 mg PO DAILY 06/16/17 Budesonide/Formeterol Fumarate [SYMBICORT 160/4.5mcg -] 1 inh PO BID 06/16/17 Cholecalciferol (Vitamin D3) [Vitamin D3] 2,000 unit PO DAILY 06/16/17 Cyanocobalamin [Vitamin B12 -] 100 mcg PO DAILY 06/16/17 Docusate Sodium [Colace] 100 mg PO TID 06/16/17 Losartan Potassium 50 mg PO DAILY 06/16/17 Terazosin HCl 2 mg PO DAILY 06/16/17 Warfarin Sodium [Coumadin] 2 mg PO DAILY 06/16/17 hydrALAZINE HCL [Apresoline -] 25 mg PO BID #60 tablet 06/25/17 Cephalexin Monohydrate [Keflex -] 500 mg PO BID #6 capsule 08/31/18 Lactobacillus Acidophilus [Bacid -] 1 tab PO DAILY tab 08/31/18 Potassium Chloride [K-Dur -] 40 meq PO QID #0 tablet.er 08/31/18 Tiotropium [place] [Spiriva Respimat] 2 puff IH DAILY #1 inhaler 08/31/18 Torsemide [Demadex -] 100 mg PO BIDLASIX #60 tablet 08/31/18
[2018-08-31] MEDS ORDERED: PT OWN MED DRAWER 7, Y5N ONE (10:20)
[2018-08-31] MEDS: CHOLECALCIFEROL (VITAMIN D3) 1,000 UNIT TABLET (FP) PO SCH (10:23)
[2018-08-31] MEDS: guaiFENesin 600 MG TABLET.ER (FP) PO SCH (10:23)
[2018-08-31] MEDS: LACTOBACILLUS ACIDOPHILUS 1 TABLET PO SCH (10:23)
[2018-08-31] MEDS: LOSARTAN POTASSIUM 50 MG TABLET (FP) PO SCH (10:24)
[2018-08-31] MEDS: CEPHALEXIN MONOHYDRATE 500 MG CAPSULE (UD) PO SCH (10:24)
[2018-08-31] MEDS: ATENOLOL 25 MG TABLET (FP) PO SCH (10:24)
[2018-08-31] MEDS: POTASSIUM CHLORIDE TABS 20 MEQ TABLET.ER (FP) PO SCH (10:24)
[2018-08-31] MEDS: hydrALAZINE HCL 25 MG TABLET (FP) PO SCH (10:24)
[2018-08-31] MEDS: TIOTROPIUM BROMIDE 2.5 MCG (SPIRIVA) RESPIMAT INHALER IH SCH (10:25)
[2018-08-31] MEDS: BUDESONIDE/FORMETEROL FUMARATE 160/4.5 mcg INHALER IH SCH (10:26)
[2018-08-31] MEDS: BACITRACIN 15 GM TUBE TOPICAL OINTMENT TP SCH (10:28)
[2018-08-31] MEDS: ACETAMINOPHEN 325 MG TABLET (FP) PO PRN (10:33)
[2018-08-31] MEDS: TERAZOSIN HCL 1 MG CAPSULE PO SCH (11:20)
--- NOTE | 2018-08-31 12:00 | PN ---
Progress Note (short form) - Note Progress Note: Renal follow up for [place] Pt seen and examined at the bedside no acute complaints for discharge home today leg ulceration still bothering him, however edema improved Vital Signs Temperature 97.2 F L 08/31/18 06:00 Pulse Rate 59 L 08/31/18 06:00 Respiratory Rate 18 08/31/18 06:00 Blood Pressure 137/65 08/31/18 06:00 O2 Sat by Pulse Oximetry (%) 100 08/30/18 21:00 Intake & Output 08/28/18 08/29/18 08/30/18 08/31/18 23:59 23:59 23:59 23:59 Intake Total 850 1400 875 Output Total 1900 2775 2175 1000 Balance -1050 -1375 -1300 -1000 Weight 83.506 kg 82.236 kg 82.554 kg 82.129 kg NAD Trace edema in LE CTA CBC, BMP 08/31/18 06:30 08/31/18 06:30 Current Medications Acetaminophen (Tylenol -) 650 mg PO Q6H PRN PRN Reason: PAIN LEVEL 1-5 Last Admin: 08/31/18 10:33 Dose: 650 mg Atenolol (Tenormin -) 25 mg PO BID [facility] Last Admin: 08/31/18 10:24 Dose: 25 mg Atorvastatin Calcium (Lipitor -) 20 mg PO HS [facility] Last Admin: 08/30/18 21:13 Dose: 20 mg Bacitracin (Bacitracin -) 1 applic TP BID [facility] Last Admin: 08/31/18 10:28 Dose: 1 applic Budesonide/Formoterol Fumarate (Symbicort 160/4.5mcg -) 1 puff IH BID [facility] Last Admin: 08/31/18 10:26 Dose: 1 puff Cephalexin HCl (Keflex -) 500 mg PO BID [facility] Last Admin: 08/31/18 10:24 Dose: 500 mg Cholecalciferol (Vitamin D3 -) 2,000 unit PO DAILY [facility] Last Admin: 08/31/18 10:23 Dose: 2,000 unit Guaifenesin (Mucinex -) 600 mg PO BID [facility] Last Admin: 08/31/18 10:23 Dose: 600 mg Hydralazine HCl (Apresoline -) 25 mg PO BID [facility] Last Admin: 08/31/18 10:24 Dose: 25 mg Lactobacillus Acidophilus (Bacid -) 1 tab PO DAILY [facility] Last Admin: 08/31/18 10:23 Dose: 1 tab Latanoprost (Xalatan 0.005% Eye Drops -) 1 drop OU HS [facility] Last Admin: 08/30/18 21:14 Dose: 1 drop Losartan Potassium (Cozaar -) 50 mg PO DAILY [facility] Last Admin: 08/31/18 10:24 Dose: 50 mg Melatonin (Melatonin) 5 mg PO HS PRN PRN Reason: INSOMNIA Last Admin: 08/30/18 23:18 Dose: 5 mg Potassium Chloride (K-Dur -) 40 meq PO QID [facility] Last Admin: 08/31/18 10:24 Dose: 40 meq Sodium Chloride ([place] Nasal [place] -) 2 spray NS Q4H PRN PRN Reason: NASAL CONGESTION Terazosin HCl (Hytrin -) 2 mg PO DAILY [facility] Last Admin: 08/31/18 11:20 Dose: 2 mg Tiotropium [place] (Spiriva Respimat) 2 puff IH DAILY [facility] Last Admin: 08/31/18 10:25 Dose: 2 puff Torsemide (Demadex -) 100 mg PO BIDLASIX [facility] Last Admin: 08/31/18 05:45 Dose: 100 mg Warfarin Sodium (Coumadin -) 4 mg PO DAILY@1800 [facility] Last Admin: 08/30/18 17:47 Dose: 4 mg Warfarin Sodium (Coumadin -) 0.5 mg PO DAILY@1800 [facility] Last Admin: 08/30/18 17:47 Dose: 0.5 mg This is a 87 year old gentleman with hx of CKD (baseline Cr ~1.5-2), COPD, CHF, CAD s/p CABG, hyperlipidemia, DVT, Hypertension, DM who presented with left LE wound. #LE wound #LE edema #CKD stage 3 #CAD #COPD #Hypertension Renal function stable near baseline continue torsemide 100mg BID will need repeat labs in 5-7 days as an outpatient continue potassium supplementation salt restricted diet oral water intake as per thirst Thank you Ko Adler DO
[2018-08-31 12:43] LABS: ALBUMIN 3.5 g/dl (3.4-5.0); ALK PHOS 83 U/L (45-117); BILIRUBIN,TOTAL 0.5 mg/dL (0.2-1); SGOT/AST 21 U/L (15-37); SGPT/ALT 22 U/L (13-61)
== END 2018-08-31 13:29 | disposition home or self-care (01) | DRG 291 ==
LOC: JER 15:39 → JERBED 19:50 → J5S 08-23 13:55 → OBSVTOIN 08-24 08:29
PROVIDERS: ADMIT Family Medicine; ATTEND Family Medicine
DX: I13.0 Hypertensive heart and chronic kidney disease with heart failure and stage 1 through stage 4 chronic kidney disease, or unspecified chronic kidney disease (principal); I50.33 Acute on chronic diastolic (congestive) heart failure; L03.116 Cellulitis of left lower limb; E87.2 Acidosis; S81.802A Unspecified open wound, left lower leg, initial encounter; J44.9 Chronic obstructive pulmonary disease, unspecified; N18.3 Chronic kidney disease, stage 3 (moderate); I25.10 Atherosclerotic heart disease of native coronary artery without angina pectoris; Z95.1 Presence of aortocoronary bypass graft; E78.5 Hyperlipidemia, unspecified; E87.6 Hypokalemia; I48.2 Chronic atrial fibrillation; E66.9 Obesity, unspecified; Z68.31 Body mass index [BMI] 31.0-31.9, adult; X58.XXXA Exposure to other specified factors, initial encounter; Y93.9 Activity, unspecified; Y92.89 Other specified places as the place of occurrence of the external cause; Y99.9 Unspecified external cause status
CPT/HCPCS: 36415; 71045-TC-FY; 80048; 80053; 81003; 82553; 83605; 83735; 83880; 84100; 84484; 85025; 85027; 85610; 85730; 87040; 87086; 93005; 93010; 93306-TC; 93971-TC; 94640; 97116-GP; 97161-GP; 99284-25; G0378; J0131

== ENCOUNTER 2019-04-29 16:26 | Emergency (ER) | payer OTHER, MEDICARE ==
[2019-04-29 16:52] VITALS: BMI 32.1
[2019-04-29] MEDS ORDERED: ACETAMINOPHEN 1000 MG/100 ML VIAL (NON FORMULARY) IVPB ONE (18:06)
--- NOTE | 2019-04-29 18:08 | PDOC ---
History of Present Illness - General Chief Complaint: Blood Pressure Problem Stated Complaint: HYPERTENSION History Source: Patient Exam Limitations: No Limitations - History of Present Illness Initial Comments: 04/29/19 23:49 88 yo M with a hx of CAD s/p CABG x3 (1983, 1997), PAD, AAA (last measurement Past History - Past Medical History Allergies/Adverse Reactions: Allergies Allergy/AdvReac Type Severity Reaction Status Date / Time black pepper Allergy Verified 04/29/19 16:48 Penicillins Allergy Rash Verified 04/29/19 16:48 RED PEPPER Allergy Uncoded 04/29/19 16:48 Home Medications: Ambulatory Orders Ascorbic Acid [Vitamin C] 500 mg PO DAILY 06/16/17 Atenolol [Tenormin -] 25 mg PO BID 06/16/17 Atorvastatin Ca [Lipitor] 20 mg PO HS 06/16/17 Bifidobacterium Infantis [Align] 10.5 mg PO DAILY 06/16/17 Budesonide/Formeterol Fumarate [SYMBICORT 160/4.5mcg -] 1 inh PO BID 06/16/17 Cholecalciferol (Vitamin D3) [Vitamin D3] 2,000 unit PO DAILY 06/16/17 Cyanocobalamin [Vitamin B12 -] 100 mcg PO DAILY 06/16/17 Docusate Sodium [Colace] 100 mg PO TID 06/16/17 Losartan Potassium 50 mg PO DAILY 06/16/17 Terazosin HCl 2 mg PO DAILY 06/16/17 Warfarin Sodium [Coumadin] 2 mg PO DAILY 06/16/17 hydrALAZINE HCL [Apresoline -] 25 mg PO BID #60 tablet 06/25/17 Cephalexin Monohydrate [Keflex -] 500 mg PO BID #6 capsule 08/31/18 Lactobacillus Acidophilus [Bacid -] 1 tab PO DAILY tab 08/31/18 Potassium Chloride [K-Dur -] 40 meq PO QID #0 tablet.er 08/31/18 Tiotropium [place] [Spiriva Respimat] 2 puff IH DAILY #1 inhaler 08/31/18 Torsemide [Demadex -] 100 mg PO BIDLASIX #60 tablet 08/31/18 Losartan Potassium 50 mg PO BID #30 tablet 04/29/19 Anemia: Yes Asthma: No Cancer: No Cardiac Disorders: Yes (CABG, valve replacement) CVA: Yes () COPD: No CHF: Yes DVT: Yes Dementia: No Diabetes: Yes (borderline diabetic) GI Disorders: No Disorders: Yes (see's dr arias for kidneys, creatine elevated.) HTN: Yes Hypercholesterolemia: Yes Liver Disease: No Seizures: No Thyroid Disease: No - Surgical History Abdominal Surgery: No Appendectomy: No Cardiac Surgery: Yes (CABG, 1997 AORTIV VALVE REPLACED,[place]IPLE [place]PASS [place] 1997) Cholecystectomy: No Lung Surgery: No Neurologic Surgery: No Orthopedic Surgery: No - Immunization History Td Vaccination: Yes Immunization Up to Date: Yes - Psycho Social/Smoking Cessation Hx Smoking Status: Yes (40 YRS QUIT) Smoking History: Never smoked Have you smoked in the past 12 months: No Number of Cigarettes Smoked Daily: 0 If you are a former smoker, when did you quit?: 45 years ago Information on smoking cessation initiated: No 'Breaking Loose' booklet given: 10/10/12 Hx Alcohol Use: No Drug/Substance Use Hx: No Substance Use Type: None Hx Substance Use Treatment: No *Physical Exam - Vital Signs Last Vital Signs Temp Pulse Resp BP Pulse Ox 98.5 F 68 16 170/70 99 04/29/19 16:48 04/29/19 16:48 04/29/19 16:48 04/29/19 16:48 04/29/19 16:48 ED Treatment Course - LABORATORY CBC & Chemistry Diagram: 04/29/19 22:00 04/29/19 18:37 - RADIOLOGY Radiology Studies Ordered: Category Date Time Status CHEST PA & LAT [RAD] Stat Radiology 04/29/19 18:06 Ordered Discharge - Discharge Information Problems reviewed: Yes Clinical Impression/Diagnosis: Aortic aneurysm, Back pain Condition: Improved Disposition: HOME - Admission No - Additional Discharge Information Prescriptions: Losartan Potassium 50 mg PO BID #30 tablet - Follow up/Referral Referrals: Linh Mobley MD [Primary Care Provider] - - Patient Discharge Instructions Patient Printed Discharge Instructions: DI for Low Back Pain, DI for High Blood Pressure, How to Monitor Your Blood Pressure at Home Additional Instructions: You were seen in the emergency department for the evaluation of your back pain. Your CT shows stability of your aneurysm. While you BNP is elevated from your baseline, your CT chest does not show pulmonary congestion. We suspect your shortness of breath is linked to you not having your losartan for the past 1 week. Please product picker the medication tomorrow. Please in addition follow up with Dr. Mobley within 1 week after discharge. Please return to the emergency department if you have worsening symptoms or any symptoms of uncontrolled shortness of breath. It is important to follow up with your primary medical doctor. Thank you. - Post Discharge Activity
[2019-04-29] MEDS ORDERED: ACETYLCYSTEINE 20% 200MG/ML 30 ML VIAL *FOR ORAL / INH USE ONLY PO ONE (18:18)
[2019-04-29] MEDS ORDERED: SODIUM CHLORIDE 1,000 ML IV STA (18:18)
--- NOTE | 2019-04-29 18:52 | PDOC ---
Attending Attestation - Resident Resident Name: Taqueria Clark - ED Attending Attestation I have performed the following: I have examined & evaluated the patient, The case was reviewed & discussed with the resident, I agree w/resident's findings & plan - HPI HPI: 04/29/19 19:06 88-year-old male pAfib (on coumadin), cad s/p inferior [place] 1997, s/p cabg x3 1983 and 1997, bio avr (1983 and 1997), hld, htn, tia, s/p right cea, pad with severe bl le dz s/p stenting and bypass, AAA unrepaired, DM, ckd (1.3-1.7), obesity, dvt, hcv p/w hypertension and left flank pain no trauma no hematuria. no n/v, no f/c +leg edema. - Physicial Exam PE: 04/29/19 18:52 Agree with the resident's HPI and PE as documented in the electronic medical record. NAD, well appearing, on nasal cannula, EOMI, PERRL, nl conjunctiva, anicteric; neck supple. lungs clear, irregularly irregular, +holosystolic murmur, abdomen soft nontender. +protuberant. no rebound, guarding. Back nontender. MCKINNEY x4, no focal neuro deficits. +peripheral edema. normal color for ethnicity, WWP. 04/29/19 19:06 - Medical Decision Making 04/29/19 18:52 Vital Signs Temp Pulse Resp BP Pulse Ox 98.5 F 68 16 170/70 99 04/29/19 16:48 04/29/19 16:48 04/29/19 16:48 04/29/19 16:48 04/29/19 16:48 DDx abdominal pain: Renal colic, biliary colic, metabolic/electrolyte derangements. GERD, PUD, esophageal spasm, pancreatitis, hepatitis, constipation , colitis, gastroenteritis, cholecystitis, UTI, pyelonephritis, ileus, SBO, medication side effect, hernia, appendicitis, diverticulitis, mesenteric ischemia. msk strain, mesenteric adenitis, psoas abscess. AAA, aortic leak vitals reviewd, HTN noted will order hydralazine for his HTN, due for nighttime 25mg PO x1 dose. also no abdominal tenderness. pain out of proportion to exam, consider mesenteric ischemia also no def back/flank/abdominal pain with HTN, warrants CTA to eval for AAA leak, with his history of unrepaired AAA (4cm at the external iliac/[employer]) and up to 6.2cm aneurysmal dilations in the thoracic to mid abdomen s/o Dr Bailey at 7pm pending imaging, labs/workup and ultimate dispo 04/29/19 19:58 04/29/19 20:00 05/02/19 12:04
[2019-04-29 19:11] LABS: INR 2.02 (0.83-1.09)
[2019-04-29 19:13] LABS: ACTIVATED PTT 38.4 SECONDS (25.2-36.5)
[2019-04-29] MEDS ORDERED: hydrALAZINE HCL 20 MG/ML VIAL IVPUSH ONE (19:25)
[2019-04-29 19:31] LABS: ALBUMIN 3.7 g/dl (3.4-5.0); BILIRUBIN,TOTAL 0.4 mg/dL (0.2-1); BLOOD UREA NITROGEN 36.2 mg/dL (7-18); CALCIUM 8.9 mg/dL (8.5-10.1); CREATININE 1.8 mg/dL (0.55-1.3); POTASSIUM 4.5 mmol/L (3.5-5.1); TOT PROT 7.9 g/dl (6.4-8.2)
[2019-04-29] MEDS ORDERED: LOSARTAN POTASSIUM 50 MG TABLET (FP) PO ONE (19:40)
--- NOTE | 2019-04-29 19:43 | PDOC ---
*Physical Exam - Vital Signs Last Vital Signs Temp Pulse Resp BP Pulse Ox 98.5 F 68 16 170/70 99 04/29/19 16:48 04/29/19 16:48 04/29/19 16:48 04/29/19 16:48 04/29/19 16:48 ED Treatment Course - LABORATORY CBC & Chemistry Diagram: 04/29/19 22:00 04/29/19 18:37 - ADDITIONAL ORDERS Additional order review: Laboratory Results 04/29/19 04/29/19 04/29/19 18:37 18:37 18:37 PT with INR 24.00 H INR 2.02 H PTT (Actin FS) 38.4 H Sodium 138 Potassium 4.5 Chloride 102 Carbon Dioxide 31 Anion Gap 6 L BUN 36.2 H Creatinine 1.8 H Est GFR (CKD-EPI)AfAm 38.10 Est GFR (CKD-EPI)NonAf 32.87 Random Glucose 101 Calcium 8.9 Total Bilirubin 0.4 AST 16 ALT 25 Alkaline Phosphatase 99 Creatine Kinase 103 Total Protein 7.9 Albumin 3.7 Medical Decision Making - Medical Decision Making 04/29/19 19:42 Pt signed out to me; BP elevated; SOB; pain in the left flank. I was going over pt's med list and they tell me that he ran out of his losartan and he has not been taking it. 50mg BID. Pt will be given losartan 100mg at this time CTA will be changed to CT chest/abd/pelvis for 2 reasons: 1) elevated BUN/Cr and 2)Pt tells me he can't receive contrast as he has a bad reaction to it and it affects his liver. 04/29/19 21:39 CT done; I looked at it and compared it to the old one; no leak notedby me; I am awaiting official result. Pt was treated with his ARB; we need to make sure that he can fill the Rx before he goes home 04/29/19 22:35 CT abd pelvis: aorta unchanged Pt has congestive changes due to the lack of losartan and his elevated BP. Discharge - Discharge Information Problems reviewed: Yes Clinical Impression/Diagnosis: Aortic aneurysm, Back pain Condition: Improved Disposition: HOME - Additional Discharge Information Prescriptions: Losartan Potassium 50 mg PO BID #30 tablet - Follow up/Referral Referrals: Linh Mobley MD [Primary Care Provider] - - Patient Discharge Instructions Patient Printed Discharge Instructions: DI for Low Back Pain, DI for High Blood Pressure, How to Monitor Your Blood Pressure at Home Additional Instructions: You were seen in the emergency department for the evaluation of your back pain. Your CT shows stability of your aneurysm. While you BNP is elevated from your baseline, your CT chest does not show pulmonary congestion. We suspect your shortness of breath is linked to you not having your losartan for the past 1 week. Please orange picker the medication tomorrow. Please in addition follow up with Dr. Mobley within 1 week after discharge. Please return to the emergency department if you have worsening symptoms or any symptoms of uncontrolled shortness of breath. It is important to follow up with your primary medical doctor. Thank you. - Post Discharge Activity
[2019-04-29] MEDS ORDERED: ACETYLCYSTEINE 20% 200MG/ML 4 ML VIAL *FOR ORAL / INH USE ONLY ONE (19:47)
[2019-04-29] MEDS ORDERED: ACETAMINOPHEN INJECTION 100 ML IVPB ONE (19:48)
[2019-04-29] MEDS ORDERED: LOSARTAN POTASSIUM 50 MG TABLET (FP) ONE (19:48)
[2019-04-29 20:14] LABS: BASO % 0.9 % (0-2.0); EOS % 2.8 % (0-4.5); HEMATOCRIT 29.5 % (35.4-49); HEMOGLOBIN 9.5 GM/dL (11.7-16.9); LYMPH % 11.5 % (8-40); MCH 28.4 pg (25.7-33.7); MCHC 32.4 g/dl (32.0-35.9); MEAN CELL VOLUME 87.6 fl (80-96); MEAN PLT VOLUME 8.4 fl (7.5-11.1); MONO % 7.9 % (3.8-10.2); NEUT % 76.9 % (42.8-82.8); PLATELET COUNT 118 K/MM3 (134-434); RBC 3.36 M/mm3 (4.00-5.60); RDW 19.6 % (11.9-15.9); WHITE BLOOD COUNT 5.8 K/mm3 (4.0-10.0)
[2019-04-29 21:36] VITALS: TEMP 97.4
[2019-04-29 22:43] LABS: BASO % 0.7 % (0-2.0); EOS % 3.1 % (0-4.5); HEMATOCRIT 29.3 % (35.4-49); HEMOGLOBIN 9.4 GM/dL (11.7-16.9); LYMPH % 13.9 % (8-40); MCH 28.4 pg (25.7-33.7); MEAN CELL VOLUME 88.7 fl (80-96); MEAN PLT VOLUME 8.2 fl (7.5-11.1); MONO % 8.9 % (3.8-10.2); NEUT % 73.4 % (42.8-82.8); PLATELET COUNT 117 K/MM3 (134-434); RDW 19.3 % (11.9-15.9); WHITE BLOOD COUNT 5.9 K/mm3 (4.0-10.0)
[2019-04-29 22:53] LABS: N-TERMINAL BNP 4850.3 pg/ml (5-450)
[2019-04-29 23:10] LABS: URINE APPEARANCE CLEAR; URINE BILIRUBIN NEGATIVE (NEGATIVE); URINE COLOR YELLOW; URINE GLUCOSE (UA) NEGATIVE (NEGATIVE); URINE KETONE NEGATIVE (NEGATIVE); URINE LEUK ESTERASE NEGATIVE (NEGATIVE); URINE NITRITE NEGATIVE (NEGATIVE); URINE PROTEIN TRACE (NEGATIVE); URINE UROBILINOGEN 0.2 mg/dL (0.2-1.0)
[2019-04-30 00:07] VITALS: BP 167/61; PULSE 58
--- NOTE | 2019-04-30 10:16 | EKG ---
Test Reason : Blood Pressure : / mmHG Vent. Rate : 055 BPM Atrial Rate : 267 BPM P-R Int : 000 ms QRS Dur : 152 ms QT Int : 546 ms P-R-T Axes : 000 -43 -01 degrees QTc Int : 522 ms ATRIAL FLUTTER WITH VARIABLE A-V BLOCK LEFT AXIS DEVIATION RIGHT BUNDLE BRANCH BLOCK ABNORMAL ECG WHEN COMPARED WITH ECG OF 22-AUG-2018 16:57, ATRIAL FLUTTER HAS REPLACED ATRIAL FIBRILLATION T WAVE INVERSION MORE EVIDENT IN ANTERIOR LEADS QT HAS LENGTHENED Confirmed by YUNG TARIQ MD ([id number]) on 04/30/2019 10:16:11 AM Referred By: Confirmed By:YUNG TARIQ MD
== END 2019-04-30 | disposition home or self-care (01) ==
LOC: JER 16:26
PROC: 3E033NZ Introduction of Analgesics, Hypnotics, Sedatives into Peripheral Vein, Percutaneous Approach (ICD-10-PCS; principal; 2019-04-29)
PROC: 3E0337Z Introduction of Electrolytic and Water Balance Substance into Peripheral Vein, Percutaneous Approach (ICD-10-PCS; 2019-04-29)
DX: M54.9 Dorsalgia, unspecified (principal); I71.9 Aortic aneurysm of unspecified site, without rupture; Z87.891 Personal history of nicotine dependence; Z95.1 Presence of aortocoronary bypass graft; E78.00 Pure hypercholesterolemia, unspecified; I10 Essential (primary) hypertension; I25.10 Atherosclerotic heart disease of native coronary artery without angina pectoris; R73.03 Prediabetes; Z88.0 Allergy status to penicillin; Z91.018 Allergy to other foods
CPT/HCPCS: 36415; 71046-TC-FY; 71250-TC; 74176-TC; 80053; 81003; 82550; 83605; 83880; 84484; 85025; 85610; 85730; 86850; 86900; 86901; 87086; 93005; 93010; 99283-25; J0131; J7030

== ENCOUNTER 2019-05-12 10:23 | Inpatient (IN) | payer OTHER, MEDICARE ==
[2019-05-12] MEDS ORDERED: ALBUTEROL SO4 2.5/IPRATROPIUM 0.5 INH SOL 3 ML VIAL.NEB. NEB ONE ×2 (10:30→10:43)
[2019-05-12] MEDS ORDERED: DEXAMETHASONE SOD PHOSPHATE 10 MG/1 ML VIAL ONE (10:43)
--- NOTE | 2019-05-12 11:16 | PDOC ---
History of Present Illness - General Chief Complaint: Shortness of Breath Stated Complaint: SOB Time Seen by Provider: 05/12/19 10:32 History Source: Patient Exam Limitations: No Limitations - History of Present Illness Initial Comments: 88 y/o M, pmh of COPD (on O2 3L daily), HLD, osteomyelitis, DVT, CHF, HTN, TIA, anemia, CABG, MVR x3, claudication s/p stenting of the LE and diabetes, presents to the ED c/o shortness of breath and productive sputum, yellow in color, of 3 day duration which worsened today morning. He states that he can walk up a couple of stairs before he becomes short of breath. As per pt, he has had a previous admission in the past for similar symptoms. He has had [address] Cespedes. Pt report no recent sick contacts or traveling. He does have c/o f/c/n/v/d/chest pain, abdominal pain. 05/12/19 11:15 05/12/19 11:17 05/12/19 11:47 Associated Symptoms: reports: denies symptoms, shortness of breath. denies: chest pain, cough, diaphoresis, fever/chills, nausea/vomiting, weakness Aspirin Received prior to arrival: Yes: no aspirin today Past History - Travel Traveled outside of the country in the last 30 days: No Close contact w/someone who was outside of country & ill: No - Past Medical History Allergies/Adverse Reactions: Allergies Allergy/AdvReac Type Severity Reaction Status Date / Time black pepper Allergy Verified 05/12/19 10:37 Penicillins Allergy Rash Verified 05/12/19 10:37 RED PEPPER Allergy Uncoded 05/12/19 10:37 Home Medications: Ambulatory Orders Ascorbic Acid [Vitamin C] 500 mg PO DAILY 06/16/17 Atenolol [Tenormin -] 25 mg PO BID 06/16/17 Atorvastatin Ca [Lipitor] 20 mg PO HS 06/16/17 Bifidobacterium Infantis [Align] 10.5 mg PO DAILY 06/16/17 Budesonide/Formeterol Fumarate [SYMBICORT 160/4.5mcg -] 1 inh PO BID 06/16/17 Cholecalciferol (Vitamin D3) [Vitamin D3] 2,000 unit PO DAILY 06/16/17 Cyanocobalamin [Vitamin B12 -] 100 mcg PO DAILY 06/16/17 Docusate Sodium [Colace] 100 mg PO TID 06/16/17 Terazosin HCl 2 mg PO HS 06/16/17 Warfarin Sodium [Coumadin] 2 mg PO HS 06/16/17 hydrALAZINE HCL [Apresoline -] 25 mg PO BID #60 tablet 06/25/17 Lactobacillus Acidophilus [Bacid -] 1 tab PO DAILY tab 08/31/18 Tiotropium [place] [Spiriva Respimat] 2 puff IH DAILY #1 inhaler 08/31/18 Losartan Potassium 50 mg PO BID #30 tablet 04/29/19 Bumetanide 2 mg PO BID 05/12/19 Febuxostat 40 mg PO HS 05/12/19 Latanoprost 0.005% Eye Drops [Xalatan 0.005% Eye Drops -] 1 drop OU HS 05/12/19 Potassium Chloride [K-Dur -] 20 meq PO HS 05/12/19 Potassium Chloride [K-Dur -] 40 meq PO AM 05/12/19 Anemia: Yes Asthma: No Cancer: No Cardiac Disorders: Yes (CABG, valve replacement) CVA: Yes () COPD: No (?) CHF: Yes DVT: Yes Dementia: No Diabetes: Yes (borderline diabetic) GI Disorders: No Disorders: Yes (see's dr arias for kidneys, creatine elevated.) HTN: Yes Hypercholesterolemia: Yes Liver Disease: No Seizures: No Thyroid Disease: No Other medical history: 02 dep - Surgical History Abdominal Surgery: No Appendectomy: No Cardiac Surgery: Yes (CABG, 1997 AORTIV VALVE REPLACED,TRIPLE BYPASS IN 1997) Cholecystectomy: No Lung Surgery: No Neurologic Surgery: No Orthopedic Surgery: No - Immunization History Td Vaccination: Yes Immunization Up to Date: Yes - Psycho Social/Smoking Cessation Hx Smoking Status: Yes (40 YRS QUIT) Smoking History: Never smoked Have you smoked in the past 12 months: No Number of Cigarettes Smoked Daily: 0 If you are a former smoker, when did you quit?: 45 years ago Information on smoking cessation initiated: No 'Breaking Loose' booklet given: 10/10/12 Hx Alcohol Use: No Drug/Substance Use Hx: No Substance Use Type: None Hx Substance Use Treatment: No Review of Systems - Review of Systems Able to Perform ROS?: Yes Is the patient limited Slovenian proficient: No Constitutional: Yes: Symptoms Reported, Weight Stable. No: Chills, Diaphoresis , Fever HEENTM: Yes: Symptoms Reported. No: Blurred Vision, Difficulty Swallowing Respiratory: Yes: Symptoms reported, Shortness of Breath, SOB with Exertion, Productive cough. No: Cough, Stridor Cardiac (ROS): Yes: Symptoms Reported. No: Chest Pain, Irregular Heart Rate, Palpitations ABD/GI: Yes: Symptoms Reported. No: Abdominal Distended, Diarrhea, Nausea, Vomiting, Indigestion Neurological: Yes: Symptoms reported. No: Headache, Numbness, Paresthesia *Physical Exam - Vital Signs Last Vital Signs Temp Pulse Resp BP Pulse Ox 98.7 F 69 24 H 196/102 H 100 05/12/19 10:35 05/12/19 10:35 05/12/19 10:35 05/12/19 10:35 05/12/19 11:00 - Physical Exam General Appearance: Yes: Nourished, Appropriately Dressed, Apparent Distress HEENT: positive: EOMI, FRANK, Normal ENT Inspection, Pharynx Normal Neck: positive: Trachea midline, Normal Thyroid, Supple Respiratory/Chest: positive: Labored Respiration, Crackles, Wheezing Cardiovascular: positive: Regular Rhythm, Regular Rate, S1, S2. negative: Murmur, Gallop/S3, Gallop/S4 Vascular Pulses: Dorsalis-Pedis (R): 2+, Doralis-Pedis (L): 2+ Gastrointestinal/Abdominal: positive: Normal Bowel Sounds, Soft. negative: Tenderness Extremity: positive: Normal Inspection Neurologic: positive: Fully Oriented, Alert, Normal Mood/Affect ED Treatment Course - LABORATORY CBC & Chemistry Diagram: 05/12/19 11:01 05/12/19 11:01 - ADDITIONAL ORDERS Additional order review: Laboratory Results 05/12/19 10:52 Anticoagulation Therapy No Result Required. O2 Delivery Device No Result Required. Oxygen Flow Rate No Result Required. Vent Mode No Result Required. Vent Rate No Result Required. Mechanical Rate No Result Required. Pressure Support Vent No Result Required. - Medications Given in the ED: ED Medications Discontinued Medications Generic Name Dose Route Start Last Admin Trade Name Freq PRN Reason Stop Dose Admin Albuterol/Ipratropium 1 amp 05/12/19 10:30 05/12/19 10:30 Duoneb - NEB 05/12/19 10:31 1 amp ONCE ONE Administration Medical Decision Making - Medical Decision Making 88 y/o M, pmh of COPD (on O2 3L daily), HLD, osteomyelitis, DVT, CHF, HTN, TIA, anemia, CABG, MVR x3, claudication s/p stenting of the LE and diabetes, presents to the ED c/o shortness of breath and productive sputum, of 3 day duration #Shortness of breath 2/2 to COPD exacerbation vs CHF exacerbation CXR- shows infiltrates on the left mid lung and right lobe ABG- resp acidosis decom CBC, CMP, lactate BCx x2 EKG trops Dounebs and dexamethasone given Pt set up with BiPAP BNP 9125 PT/INR elevated 2/2 to AC Started pt on Nitropaste for elevated BP- decreases preload Will likely need tele 05/12/19 11:58 05/12/19 12:03 05/12/19 12:03 05/12/19 12:04 05/12/19 12:05 05/12/19 15:04 Discharge - Discharge Information Clinical Impression/Diagnosis: Acute on chronic systolic CHF (congestive heart failure) Condition: Improved - Admission Yes - Follow up/Referral - Patient Discharge Instructions - Post Discharge Activity
[2019-05-12 11:18] LABS: ARTERIAL BLD GAS O2 SATURATION 98.6 % (95-98); ARTERIAL BLOOD GAS BASE EXCESS 2.1 meq/l (-2-2); ARTERIAL BLOOD GAS PCO2 47.2 mmHg (35-45); ARTERIAL BLOOD GAS PO2 124 mmHg (80-100); ARTERIAL BLOOD GAS pH 7.38 (7.35-7.45)
[2019-05-12 11:20] LABS: ALLENS TEST POSITIVE
[2019-05-12 11:22] LABS: BASO % 0.6 % (0-2.0); EOS % 0.6 % (0-4.5); HEMATOCRIT 31.1 % (35.4-49); HEMOGLOBIN 10.1 GM/dL (11.7-16.9); LYMPH % 6.1 % (8-40); MCH 28.6 pg (25.7-33.7); MCHC 32.5 g/dl (32.0-35.9); MEAN CELL VOLUME 88.1 fl (80-96); MEAN PLT VOLUME 8.5 fl (7.5-11.1); MONO % 9.5 % (3.8-10.2); NEUT % 83.2 % (42.8-82.8); PLATELET COUNT 120 K/MM3 (134-434); RBC 3.53 M/mm3 (4.00-5.60); RDW 20.1 % (11.9-15.9); WHITE BLOOD COUNT 5.3 K/mm3 (4.0-10.0)
[2019-05-12 11:29] LABS: VENOUS PC02 56.3 mmHg (38-52); VENOUS PH 7.34 (7.31-7.41)
[2019-05-12 11:32] LABS: VENOUS PO2 < 49 mmHg (28-48)
[2019-05-12 11:36] LABS: INR 2.7 (0.83-1.09); PROTHROMBIN TIME (PATIENT) 32.2 SEC (9.7-13.0)
[2019-05-12 11:46] LABS: MAGNESIUM 2.5 mg/dL (1.8-2.4); PHOSPHOROUS 3.6 mg/dL (2.5-4.9)
[2019-05-12 11:52] LABS: ALBUMIN 3.8 g/dl (3.4-5.0); BILIRUBIN,TOTAL 0.6 mg/dL (0.2-1); CALCIUM 8.8 mg/dL (8.5-10.1); CREATININE 2.3 mg/dL (0.55-1.3); N-TERMINAL BNP 9125.2 pg/ml (5-450); POTASSIUM 4.7 mmol/L (3.5-5.1); TOT PROT 8.2 g/dl (6.4-8.2)
[2019-05-12] MEDS ORDERED: ACETAMINOPHEN 500 MG TABLET (FP) PO ONE (12:30)
[2019-05-12] MEDS ORDERED: FUROSEMIDE 40 MG/4 ML INJECTABLE VIAL IVPUSH ONE (12:32)
--- NOTE | 2019-05-12 12:53 | EKG ---
Test Reason : Blood Pressure : / mmHG Vent. Rate : 066 BPM Atrial Rate : 066 BPM P-R Int : 000 ms QRS Dur : 140 ms QT Int : 468 ms P-R-T Axes : 000 -22 025 degrees QTc Int : 490 ms POOR DATA QUALITY, INTERPRETATION MAY BE ADVERSELY AFFECTED ATRIAL FLUTTER WITH VARIABLE A-V BLOCK RIGHT BUNDLE BRANCH BLOCK ABNORMAL ECG Confirmed by YUNG TARIQ MD ([id number]) on 05/12/2019 12:52:44 PM Referred By: Confirmed By:YUNG TARIQ MD
[2019-05-12] MEDS ORDERED: ACETAMINOPHEN 325 MG TABLET (FP) PO ONE (13:14)
[2019-05-12] MEDS ORDERED: FUROSEMIDE 40 MG/4 ML INJECTABLE VIAL ONE ×2 (13:15→13:25)
[2019-05-12] MEDS ORDERED: ACETAMINOPHEN 325 MG TABLET (FP) ONE (13:15)
--- NOTE | 2019-05-12 13:25 | PDOC ---
Documentation entered by Abhishek Mtz SCRIBE, acting as scribe for Rahul Post MD. Rahul Post MD: This documentation has been prepared by the Smith mauricio Nirvannie, SCRIBE, under my direction and personally reviewed by me in its entirety. I confirm that the documentation accurately reflects all work, treatment, procedures, and medical decision making performed by me. Attending Attestation - Resident Resident Name: Attila Bhakta - ED Attending Attestation I have performed the following: I have examined & evaluated the patient, The case was reviewed & discussed with the resident, I agree w/resident's findings & plan, Exceptions are as noted - HPI HPI: 05/12/19 13:19 The patient is a 88 year old male, with a significant past medical history of COPD (on O2 3L daily), HLD, osteomyelitis, DVT, CHF, HTN, TIA, anemia, CABG, valve replacement and diabetes, who presents to the emergency department with progressively worsening shortness of breath and cough. As per EMS, patient was given 10mg of Decadron and 2 DuoNebs en route. Patient denies any urinary symptoms. Allergies: Red and black pepper, penicillin Past surgical history: CABG, 1997 AORTIC VALVE REPLACED,TRIPLE BYPASS IN 1997 Social history: Former smoker. No alcohol or drug use reported Primary Care Physician: Dr. Mobley Panel Sewer; Dr. Cespedes Multiple Coil Winder: Dr. Del Rosario - Physicial Exam PE: 05/12/19 13:24 Vitals: Triage Vital signs reviewed General Appearance: No acute distress, well nourished well developed, Head: Atraumatic, Chest Wall: Nontender Cardiac: Regular rate and rhythym, Lungs: Coarse breath sounds bilaterally Abdomen: Soft, non distended, normal bowel sounds, non tender to palpation Extremities: Full range of motion to all extremities, no cyanosis, clubbing, or edema Skin: Warm and dry, no rashes or lesions, no rash, no petechiae Psych: Normal mood, normal affect - Medical Decision Making 05/12/19 13:24 88 years old presents with respiratory distress Chest x-ray and labs consistent with CHF exacerbation patient endorses compliance with medication but weight gain Patient require IV diuresis will observe on telemetry for further management.
[2019-05-12] MEDS ORDERED: NITROGLYCERIN 2% OINTMENT - 1GM PACKET TD ONE ×3 (14:38→14:57)
[2019-05-12] MEDS: FUROSEMIDE 100 MG/10 ML INJECTABLE VIAL IVPB SCH (14:51)
[2019-05-12] MEDS: DOCUSATE SODIUM 100 MG CAPSULE (FP) PO SCH ×2 (15:30→22:16)
[2019-05-12] MEDS ORDERED: methylPREDNISolone NA SUCC 40 MG/1 ML VIAL ONE (15:49)
[2019-05-12] MEDS ORDERED: DOCUSATE SODIUM 100 MG CAPSULE (FP) PO ONE (15:49)
[2019-05-12] MEDS: methylPREDNISolone NA SUCC 40 MG/1 ML VIAL IVPUSH SCH ×2 (15:56→21:58)
--- NOTE | 2019-05-12 16:41 | CON.CARD ---
Cardiology Consult (text) - Consultation Consultation Note: CC: shortness of breath, cough 88 m hx pafib (on coumadin), cad s/p inferior [place] 1997, s/p cabg x3 1983 and 1997 , bio avr (1983 and 1997), hld, htn, tia, s/p right cea, pad with severe bl le dz s/p stenting and bypass, AAA, DM, ckd (1.3-1.7), obesity, dvt, hcv, COPD on home O2 3L p/w shortness of breath, cough, brea lower ext edema. Sees Dr. Cespedes for cardio. Recently seen in ER 04/29 for elevated BP, short of breath , didn't have losartan at the time was refilled and improved. However noticed worsening cough/congestion, dyspnea on exertion and lower ext edema. Has been on bumetenide the last month because he had itching with torsemide. Used to be on metolazone as well which was stopped for itching. Has had less urine output overall in the last month. No chest pain, palps, dizziness. pmhx/pshx: per hpi social hx: former smoker, no etoh or illicits fam hx: no premature cad ros: per hpi; no nvd, fever, kumar, vision changes, hematuria, dysuria, muscle pains Home Medications Medication Instructions Recorded Ascorbic Acid [Vitamin C] 500 mg PO DAILY 06/16/17 Atenolol [Tenormin -] 25 mg PO BID 06/16/17 Atorvastatin Ca [Lipitor] 20 mg PO HS 06/16/17 Bifidobacterium Infantis [Align] 10.5 mg PO DAILY 06/16/17 Budesonide/Formeterol Fumarate 1 inh PO BID 06/16/17 [SYMBICORT 160/4.5mcg -] Cholecalciferol (Vitamin D3) 2,000 unit PO DAILY 06/16/17 [Vitamin D3] Cyanocobalamin [Vitamin B12 -] 100 mcg PO DAILY 06/16/17 Docusate Sodium [Colace] 100 mg PO TID 06/16/17 Terazosin HCl 2 mg PO HS 06/16/17 Warfarin Sodium [Coumadin] 2 mg PO HS 06/16/17 hydrALAZINE HCL [Apresoline -] 25 mg PO BID #60 tablet 06/25/17 Lactobacillus Acidophilus [Bacid -] 1 tab PO DAILY tab 04/16/19 Tiotropium [place] [Spiriva 2 puff IH DAILY #1 inhaler 08/31/18 Respimat] Losartan Potassium 50 mg PO BID #30 tablet 04/29/19 Bumetanide 2 mg PO BID 05/12/19 Febuxostat 40 mg PO HS 05/12/19 Latanoprost 0.005% Eye Drops 1 drop OU HS 05/12/19 [Xalatan 0.005% Eye Drops -] Potassium Chloride [K-Dur -] 20 meq PO HS 05/12/19 Potassium Chloride [K-Dur -] 40 meq PO AM 05/12/19 Allergies Allergy/AdvReac Type Severity Reaction Status Date / Time black pepper Allergy Verified 05/12/19 10:37 Penicillins Allergy Rash Verified 05/12/19 10:37 RED PEPPER Allergy Uncoded 05/12/19 10:37 Vital Signs Period Temp Pulse Resp BP Sys/Hernandez Pulse Ox Last 24 Hr 98 F-98.7 F 67-115 17-30 158-196/58-102 97-100 nad, calm jvd elevated, neck supple scattered rhonchi/wheezes, nl eff irregular 2/6 soft sys murmur at usb + bs soft nt nd ext with trace edema, no cyanosis, clubbing aaox3 no jaundice, diaphoresis pos dp pt no carotid bruits Laboratory Last Values WBC 5.3 K/mm3 (4.0-10.0) 05/12/19 11:01 RBC 3.53 M/mm3 (4.00-5.60) L 05/12/19 11:01 Hgb 10.1 GM/dL (11.7-16.9) L 05/12/19 11:01 Hct 31.1 % (35.4-49) L 05/12/19 11:01 MCV 88.1 fl (80-96) 05/12/19 11:01 MCH 28.6 pg (25.7-33.7) 05/12/19 11:01 MCHC 32.5 g/dl (32.0-35.9) 05/12/19 11:01 RDW 20.1 % (11.9-15.9) H 05/12/19 11:01 Plt Count 120 K/MM3 (134-434) L 05/12/19 11:01 MPV 8.5 fl (7.5-11.1) 05/12/19 11:01 Absolute Neuts (auto) 4.4 K/mm3 (1.5-8.0) 05/12/19 11:01 Neutrophils % 83.2 % (42.8-82.8) H 05/12/19 11:01 Lymphocytes % 6.1 % (8-40) L D 05/12/19 11:01 Monocytes % 9.5 % (3.8-10.2) 05/12/19 11:01 Eosinophils % 0.6 % (0-4.5) D 05/12/19 11:01 Basophils % 0.6 % (0-2.0) 05/12/19 11:01 Nucleated RBC % 0 % (0-0) 05/12/19 11:01 PT with INR 32.20 SEC (9.7-13.0) H 05/12/19 11:01 INR 2.70 (0.83-1.09) H 05/12/19 11:01 Anticoagulation Therapy No Result Required. 05/12/19 10:52 Puncture Site Left brachial 05/12/19 10:52 ABG pH 7.38 (7.35-7.45) 05/12/19 10:52 ABG pCO2 at Pt Temp 47.2 mmHg (35-45) H 05/12/19 10:52 ABG pO2 at Pt Temp 124 mmHg (80-100) H 05/12/19 10:52 ABG HCO3 27.1 mmol/L (22-27) H 05/12/19 10:52 ABG O2 Sat (Measured) 98.6 % (95-98) H 05/12/19 10:52 ABG O2 Content 12.9 % vol 05/12/19 10:52 ABG Base Excess 2.1 meq/l (-2-2) H 05/12/19 10:52 Gulshan Test Positive 05/12/19 10:52 VBG pH 7.34 (7.31-7.41) 05/12/19 11:01 POC VBG pCO2 56.3 mmHg (38-52) H 05/12/19 11:01 POC VBG pO2 < 49 mmHg (28-48) H 05/12/19 11:01 VBG HCO3 29.3 mmol/L (23-29) H 05/12/19 11:01 VBG O2 Sat (Srinivasan) 33.1 % (70-80) L 05/12/19 11:01 VBG Base Excess 2.5 meq/l (-2-2) H 05/12/19 11:01 O2 Delivery Device No Result Required. 05/12/19 10:52 Oxygen Flow Rate Nasal 05/12/19 10:52 Vent Mode No Result Required. 05/12/19 10:52 Vent Rate No Result Required. 05/12/19 10:52 Mechanical Rate No Result Required. 05/12/19 10:52 Pressure Support Vent No Result Required. 05/12/19 10:52 Sodium 138 mmol/L (136-145) 05/12/19 11:01 Potassium 4.7 mmol/L (3.5-5.1) 05/12/19 11:01 Chloride 102 mmol/L (98-107) 05/12/19 11:01 Carbon Dioxide 30 mmol/L (21-32) 05/12/19 11:01 Anion Gap 6 MMOL/L (8-16) L 05/12/19 11:01 BUN 43.0 mg/dL (7-18) H 05/12/19 11:01 Creatinine 2.3 mg/dL (0.55-1.3) H 05/12/19 11:01 Est GFR (CKD-EPI)AfAm 28.33 05/12/19 11:01 Est GFR (CKD-EPI)NonAf 24.44 05/12/19 11:01 Random Glucose 123 mg/dL (74-106) H 05/12/19 11:01 Lactic Acid 2.6 mmol/L (0.4-2.0) H* 05/12/19 11:01 Calcium 8.8 mg/dL (8.5-10.1) 05/12/19 11:01 Phosphorus 3.6 mg/dL (2.5-4.9) 05/12/19 11:01 Magnesium 2.5 mg/dL (1.8-2.4) H 05/12/19 11:01 Total Bilirubin 0.6 mg/dL (0.2-1) 05/12/19 11:01 AST 15 U/L (15-37) 05/12/19 11:01 ALT 24 U/L (13-61) 05/12/19 11:01 Alkaline Phosphatase 105 U/L (45-117) 05/12/19 11:01 Troponin I 0.05 ng/ml (0.00-0.05) 05/12/19 11:01 B-Natriuretic Peptide 9125.2 pg/ml (5-450) H 05/12/19 11:01 Total Protein 8.2 g/dl (6.4-8.2) 05/12/19 11:01 Albumin 3.8 g/dl (3.4-5.0) 05/12/19 11:01 Influenza A (Rapid) Negative (Negative) 05/12/19 11:01 Influenza B (Rapid) Negative (Negative) 05/12/19 11:01 CT chest 05/2017: desd aorta 5.7 cm, ascd aorta 4.6 cm, no sig change from [address] abd 11/2018: AAA 6.2 cm carotids 04/2017: 80-99% jess, no sig stenosis on left cta 2006: patent knowles/shaggy, occluded svg to OM mibi 09/2008: no ischemia mibi 05/2011: possible minimal inferolateral ischemia echo 05/2017 ([facility]): mod lve, nl lvef, rv tds, sev ricardo, mild-mod mr, sev tr, sev phtn, no AI/ 2 wk event monitor 04/2017: afib, rate controlled.eg echo 08/2018 ([facility]): pos lat hk, nl lvef, nl rv, ricardo, mild mr, mild tr, mild phtn , nl bio avr CXR: + congestive changes EKG: afib, RBBB, no ischemic changes tele: afib, rate controlled a/p: 88 m hx pafib (on coumadin), cad s/p inferior [place] 1997, s/p cabg x3 1983 and 1997, bio avr (1983 and 1997), hld, htn, tia, s/p right cea, pad with severe bl le dz s/p stenting and bypass, AAA, DM, ckd (1.3-1.7), obesity, dvt, hcv, p/w edema, sob cough lower ext edema, acute on chronic diastolic HF - cont IV lasix, monitor Cr, lytes, daily weights Pafib (on coumadin): - Rate controlled on BB. - AC with coumadin. Dosing per inr. cad s/p inferior TN 1997, s/p cabg x3 1983 and 1997: -stable, no angina, nl lvef -cont medical management s/p bio avr - nl function on 08/2018 echo - outpatient follow up hld: -cont statin htn: - not well controlled - hydralazine increased to 50 mg BID, cont other home meds pad, s/p cea, s/p le bypass/stenting: - Claudication is stable. Pt has been evaluated by several vascular surgeons in the past and his le dz is deemed non revascularizable. Recent carotid US shows stable disease, no new sxs. Continue current cardiac meds. AAA: - evaluated by vascular in past and they felt he is not a surgical candidate due to high risk - outpatient CT monitoring - Continue bb, statin.
[2019-05-12] MEDS: WARFARIN NA 2 MG TABLET (UD) PO SCH (17:18)
[2019-05-12] MEDS: ALBUTEROL SO4 2.5/IPRATROPIUM 0.5 INH SOL 3 ML VIAL.NEB. NEB SCH ×2 (17:23→20:45)
--- NOTE | 2019-05-12 17:52 | HP ---
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: TIA Cardiovascular: Yes: AFIB, CAD, Deep Vein Thrombosis, HTN, Hyperlipdemia, Other (AAA, PAD) Pulmonary: Yes: COPD, O2 Dependent Renal/: Yes: Renal Inusuff, BPH Infectious Disease: Yes: Other (history of pseudomonas osteomyelitis right foot 2012) - Past Surgical History Past Surgical History: Yes: CABG, Carotid Endarterectomy (right), Valve Replacement (bioAVR 1983, 1997) - Smoking History Smoking history: Never smoked Have you smoked in the past 12 months: No Aproximately how many cigarettes per day: 0 If you are a former smoker, when did you quit?: 45 years ago - Alcohol/Substance Use Hx Alcohol Use: No - Social History ADL: Independent History of Recent Travel: No Home Medications - Allergies Allergies/Adverse Reactions: Allergies Allergy/AdvReac Type Severity Reaction Status Date / Time black pepper Allergy Verified 05/12/19 10:37 Penicillins Allergy Rash Verified 05/12/19 10:37 RED PEPPER Allergy Uncoded 05/12/19 10:37 - Home Medications Home Medications: Ambulatory Orders Ascorbic Acid [Vitamin C] 500 mg PO DAILY 06/16/17 Atenolol [Tenormin -] 25 mg PO BID 06/16/17 Atorvastatin Ca [Lipitor] 20 mg PO HS 06/16/17 Bifidobacterium Infantis [Align] 10.5 mg PO DAILY 06/16/17 Budesonide/Formeterol Fumarate [SYMBICORT 160/4.5mcg -] 1 inh PO BID 06/16/17 Cholecalciferol (Vitamin D3) [Vitamin D3] 2,000 unit PO DAILY 06/16/17 Cyanocobalamin [Vitamin B12 -] 100 mcg PO DAILY 06/16/17 Docusate Sodium [Colace] 100 mg PO TID 06/16/17 Terazosin HCl 2 mg PO HS 06/16/17 Warfarin Sodium [Coumadin] 2 mg PO HS 06/16/17 hydrALAZINE HCL [Apresoline -] 25 mg PO BID #60 tablet 06/25/17 Lactobacillus Acidophilus [Bacid -] 1 tab PO DAILY tab 08/31/18 Tiotropium [place] [Spiriva Respimat] 2 puff IH DAILY #1 inhaler 08/31/18 Losartan Potassium 50 mg PO BID #30 tablet 04/29/19 Bumetanide 2 mg PO BID 05/12/19 Febuxostat 40 mg PO HS 05/12/19 Latanoprost 0.005% Eye Drops [Xalatan 0.005% Eye Drops -] 1 drop OU HS 05/12/19 Potassium Chloride [K-Dur -] 20 meq PO HS 05/12/19 Potassium Chloride [K-Dur -] 40 meq PO AM 05/12/19 Review of Systems - Review of Systems Cardiovascular: reports: Shortness of Breath. denies: Chest Pain Respiratory: reports: SOB, SOB on Exertion Gastrointestinal: reports: No Symptoms Genitourinary: reports: No Symptoms Physical Examination Vital Signs: Vital Signs Temperature 98.1 F 05/12/19 16:06 Pulse Rate 67 05/12/19 16:06 Respiratory Rate 22 H 05/12/19 16:06 Blood Pressure 158/83 05/12/19 16:06 O2 Sat by Pulse Oximetry (%) 97 05/12/19 16:06 Cardiovascular: Yes: Regular Rate and Rhythm Respiratory: Yes: Rales, SOB on Exertion Gastrointestinal: Yes: Normal Bowel Sounds, Soft. No: Tenderness Musculoskeletal: Yes: Back Pain Edema: Yes Labs: CBC, BMP 05/12/19 11:01 05/12/19 11:01 Problem List - Problems (1) Acute on chronic systolic CHF (congestive heart failure) Assessment/Plan: IV LASIX FOLLOW LABS CARDIOLOGY CONSULT Code(s): I50.23 - ACUTE ON CHRONIC SYSTOLIC (CONGESTIVE) HEART FAILURE (2) Anemia Assessment/Plan: CHRONIC'-FOLLOW LABS Code(s): D64.9 - ANEMIA, UNSPECIFIED Qualifiers: Anemia type: B12 deficiency (3) Aortic aneurysm Code(s): I71.9 - AORTIC ANEURYSM OF UNSPECIFIED SITE, WITHOUT RUPTURE (4) Atrial fibrillation Assessment/Plan: ON COUMADIN FOLLOW INR Code(s): I48.91 - UNSPECIFIED ATRIAL FIBRILLATION Qualifiers: Atrial fibrillation type: chronic (5) COPD (chronic obstructive pulmonary disease) Assessment/Plan: IV STEROIDS NEBS PULM CONSULT Code(s): J44.9 - CHRONIC OBSTRUCTIVE PULMONARY DISEASE, UNSPECIFIED (6) Pneumonia Assessment/Plan: FOLLOW WBC-LACTIC ACID IV ABX ID CONSULT Code(s): J18.9 - PNEUMONIA, UNSPECIFIED ORGANISM
[2019-05-12] MEDS ORDERED: VANCOMYCIN 1 GRAM (PRE-DOCKED) 1,000 MG/250 ML BAG IVPB ONE (18:00)
--- NOTE | 2019-05-12 18:17 | PN ---
Progress Note (short form) - Note Progress Note: ID CONSULT DICTATED R/O PNEUMONIA/ SEPSIS SECONDARY TO PNEUMONIA COPD/CHF S/P AVR PCN ALLERGY CKD AWAIT SEPSIS W/U EMPIRIC VANCOMYCIN / CEFTRIAXONE
[2019-05-12] MEDS: CEFTRIAXONE 1 GM in DEXTROSE 5%-WATER - 50 ML IVPB SCH (21:00)
[2019-05-12] MEDS ORDERED: DEXTROSE 5%-WATER - 50 ML IVPB ONE (21:47)
[2019-05-12] MEDS ORDERED: cefTRIAXone SODIUM 1 GM VIAL ONE (21:47)
[2019-05-12] MEDS ORDERED: TERAZOSIN HCL 2 MG CAPSULE PO SCH (22:00)
[2019-05-12] MEDS: POTASSIUM CHLORIDE TABS 20 MEQ TABLET.ER (FP) PO SCH (22:16)
[2019-05-12] MEDS: LOSARTAN POTASSIUM 50 MG TABLET (FP) PO SCH (22:16)
[2019-05-12] MEDS: ATENOLOL 25 MG TABLET (FP) PO SCH (22:16)
[2019-05-12] MEDS: ATORVASTATIN CA 20 MG TABLET (FP) PO SCH (22:16)
[2019-05-12] MEDS: hydrALAZINE HCL 25 MG TABLET (FP) PO SCH (22:16)
[2019-05-12] MEDS ORDERED: diphenhydrAMINE HCL 25 MG CAPSULE (FP) PO ONE (23:03)
[2019-05-13] MEDS: BUDESONIDE/FORMETEROL FUMARATE 160/4.5 mcg INHALER IH SCH ×4 (00:15→23:28)
[2019-05-13] MEDS: LATANOPROST 0.005% OPHTH SOLN 2.5ML BOTTLE OU SCH ×2 (00:15→23:29)
[2019-05-13] MEDS: methylPREDNISolone NA SUCC 40 MG/1 ML VIAL IVPUSH SCH ×4 (03:40→23:27)
[2019-05-13] MEDS: DOCUSATE SODIUM 100 MG CAPSULE (FP) PO SCH ×3 (06:41→23:27)
[2019-05-13] MEDS: FUROSEMIDE 100 MG/10 ML INJECTABLE VIAL IVPB SCH ×2 (06:41→14:01)
[2019-05-13] MEDS: POTASSIUM CHLORIDE TABS 20 MEQ TABLET.ER (FP) PO SCH ×2 (06:42→23:27)
[2019-05-13 06:59] LABS: HEMATOCRIT 26.9 % (35.4-49); HEMOGLOBIN 8.8 GM/dL (11.7-16.9); LYMPH % 5.8 % (8-40); MCH 28.4 pg (25.7-33.7); MCHC 32.7 g/dl (32.0-35.9); MEAN CELL VOLUME 86.8 fl (80-96); MEAN PLT VOLUME 8.1 fl (7.5-11.1); MONO % 9.6 % (3.8-10.2); NEUT % 84.6 % (42.8-82.8); PLATELET COUNT 110 K/MM3 (134-434); RDW 20.1 % (11.9-15.9); WHITE BLOOD COUNT 4.3 K/mm3 (4.0-10.0)
[2019-05-13 07:15] LABS: INR 3.28 (0.83-1.09); PROTHROMBIN TIME (PATIENT) 39.2 SEC (9.7-13.0)
--- NOTE | 2019-05-13 07:29 | PN ---
Progress Note, Physician - Current Medication List Current Medications: Active Medications Albuterol/Ipratropium (Duoneb -) 1 amp NEB RQID [facility] Last Admin: 05/12/19 20:45 Dose: 1 amp Atenolol (Tenormin -) 25 mg PO BID [facility] Last Admin: 05/12/19 22:16 Dose: 25 mg Atorvastatin Calcium (Lipitor -) 20 mg PO HS [facility] Last Admin: 05/12/19 22:16 Dose: 20 mg Budesonide/Formoterol Fumarate (Symbicort 160/4.5mcg -) 2 puff IH BID [facility] Last Admin: 05/13/19 00:15 Dose: Not Given Docusate Sodium (Colace -) 100 mg PO TID [facility] Last Admin: 05/13/19 06:41 Dose: 100 mg Furosemide (Lasix Injection -) 80 mg IVPB BID@0600,1400 [facility] Last Admin: 05/13/19 06:41 Dose: 80 mg Hydralazine HCl (Apresoline -) 50 mg PO BID [facility] Last Admin: 05/12/19 22:16 Dose: 50 mg Ceftriaxone Sodium 1 gm/ (Dextrose) 50 mls @ 100 mls/hr IVPB DAILY [facility]; Protocol Last Admin: 05/12/19 21:00 Dose: 100 mls/hr Latanoprost (Xalatan 0.005% Eye Drops -) 1 drop OU HS [facility] Last Admin: 05/13/19 00:15 Dose: Not Given Losartan Potassium (Cozaar -) 50 mg PO BID [facility] Last Admin: 05/12/19 22:16 Dose: 50 mg Methylprednisolone Sodium Succinate (Solu-Medrol -) 40 mg IVPUSH Q6H-IV [facility] Last Admin: 05/13/19 03:40 Dose: 40 mg Potassium Chloride (K-Dur -) 20 meq PO HS [facility] Last Admin: 05/12/19 22:16 Dose: 20 meq Potassium Chloride (K-Dur -) 40 meq PO AM [facility] Last Admin: 05/13/19 06:42 Dose: 40 meq Terazosin HCl (Hytrin -) 2 mg PO HS [facility] Warfarin Sodium (Coumadin -) 2 mg PO 1800 [facility] Last Admin: 05/12/19 17:18 Dose: 2 mg - Objective Vital Signs: Vital Signs Temperature 97.8 F 05/13/19 06:00 Pulse Rate 87 05/13/19 06:00 Respiratory Rate 20 05/13/19 06:00 Blood Pressure 160/95 05/13/19 06:00 O2 Sat by Pulse Oximetry (%) 98 05/12/19 22:35 Cardiovascular: Yes: S1, S2 Respiratory: Yes: On Nasal O2, Rales, Rhonchi Gastrointestinal: Yes: Normal Bowel Sounds, Soft Labs: INR, PTT INR 3.28 (0.83-1.09) H 05/13/19 06:45 Problem List - Problems (1) Acute on chronic systolic CHF (congestive heart failure) Assessment/Plan: IV LASIX 80 BID FOLLOW LABS CARDIOLOGY CONSULT Code(s): I50.23 - ACUTE ON CHRONIC SYSTOLIC (CONGESTIVE) HEART FAILURE (2) Anemia Assessment/Plan: CHRONIC'-FOLLOW LABS Code(s): D64.9 - ANEMIA, UNSPECIFIED Qualifiers: Anemia type: B12 deficiency (3) Aortic aneurysm Code(s): I71.9 - AORTIC ANEURYSM OF UNSPECIFIED SITE, WITHOUT RUPTURE (4) Atrial fibrillation Assessment/Plan: ON COUMADIN FOLLOW INR Code(s): I48.91 - UNSPECIFIED ATRIAL FIBRILLATION Qualifiers: Atrial fibrillation type: chronic (5) COPD (chronic obstructive pulmonary disease) Assessment/Plan: IV STEROIDS NEBS PULM CONSULT Code(s): J44.9 - CHRONIC OBSTRUCTIVE PULMONARY DISEASE, UNSPECIFIED (6) Pneumonia Assessment/Plan: FOLLOW WBC-LACTIC ACID IV ABX ID CONSULT NOTED Code(s): J18.9 - PNEUMONIA, UNSPECIFIED ORGANISM (7) Chronic renal insufficiency Assessment/Plan: MONITOR CR--2.2 RENAL CONSULT Code(s): N18.9 - CHRONIC KIDNEY DISEASE, UNSPECIFIED Qualifiers: Chronic kidney disease stage: unspecified stage Qualified Code(s): N18.9 - Chronic kidney disease, unspecified
[2019-05-13] MEDS: ALBUTEROL SO4 2.5/IPRATROPIUM 0.5 INH SOL 3 ML VIAL.NEB. NEB SCH ×4 (07:41→20:45)
[2019-05-13] MEDS ORDERED: DEXTROSE 5%-WATER - 50 ML IVPB ONE (07:51)
[2019-05-13] MEDS ORDERED: cefTRIAXone SODIUM 1 GM VIAL ONE (07:51)
[2019-05-13 08:11] LABS: ALBUMIN 3.2 g/dl (3.4-5.0); BILIRUBIN,TOTAL 0.4 mg/dL (0.2-1); BLOOD UREA NITROGEN 50.5 mg/dL (7-18); CALCIUM 8.3 mg/dL (8.5-10.1); CREATININE 2.2 mg/dL (0.55-1.3); MAGNESIUM 2.5 mg/dL (1.8-2.4); N-TERMINAL BNP 13871.5 pg/ml (5-450); POTASSIUM 4.4 mmol/L (3.5-5.1); TOT PROT 7.1 g/dl (6.4-8.2)
--- NOTE | 2019-05-13 09:36 | PN ---
Progress Note, Physician Chief Complaint: Feeling better Still SOB TELE: AF, controlled - Current Medication List Current Medications: Active Medications Albuterol/Ipratropium (Duoneb -) 1 amp NEB RQID [facility] Last Admin: 05/13/19 07:41 Dose: 1 amp Atenolol (Tenormin -) 25 mg PO BID [facility] Last Admin: 05/12/19 22:16 Dose: 25 mg Atorvastatin Calcium (Lipitor -) 20 mg PO HS [facility] Last Admin: 05/12/19 22:16 Dose: 20 mg Budesonide/Formoterol Fumarate (Symbicort 160/4.5mcg -) 2 puff IH BID [facility] Last Admin: 05/13/19 00:15 Dose: Not Given Docusate Sodium (Colace -) 100 mg PO TID [facility] Last Admin: 05/13/19 06:41 Dose: 100 mg Furosemide (Lasix Injection -) 80 mg IVPB BID@0600,1400 [facility] Last Admin: 05/13/19 06:41 Dose: 80 mg Hydralazine HCl (Apresoline -) 50 mg PO BID [facility] Last Admin: 05/12/19 22:16 Dose: 50 mg Ceftriaxone Sodium 1 gm/ (Dextrose) 50 mls @ 100 mls/hr IVPB DAILY [facility]; Protocol Last Admin: 05/12/19 21:00 Dose: 100 mls/hr Latanoprost (Xalatan 0.005% Eye Drops -) 1 drop OU HS [facility] Last Admin: 05/13/19 00:15 Dose: Not Given Losartan Potassium (Cozaar -) 50 mg PO BID [facility] Last Admin: 05/12/19 22:16 Dose: 50 mg Methylprednisolone Sodium Succinate (Solu-Medrol -) 40 mg IVPUSH Q6H-IV [facility] Last Admin: 05/13/19 03:40 Dose: 40 mg Potassium Chloride (K-Dur -) 20 meq PO HS [facility] Last Admin: 05/12/19 22:16 Dose: 20 meq Potassium Chloride (K-Dur -) 40 meq PO AM [facility] Last Admin: 05/13/19 06:42 Dose: 40 meq Terazosin HCl (Hytrin -) 2 mg PO HS [facility] Warfarin Sodium (Coumadin -) 2 mg PO 1800 [facility] Last Admin: 05/12/19 17:18 Dose: 2 mg - Objective Vital Signs: Vital Signs Temperature 97.6 F 05/13/19 08:44 Pulse Rate 70 05/13/19 08:44 Respiratory Rate 21 H 05/13/19 08:44 Blood Pressure 109/79 05/13/19 08:44 O2 Sat by Pulse Oximetry (%) 100 05/13/19 08:44 Constitutional: Yes: No Distress Cardiovascular: Yes: Pulse Irregular Respiratory: Yes: Other (bibasilar rales.) Gastrointestinal: Yes: Soft Edema: Yes Edema: LLE: 1+, RLE: 1+ Neurological: Yes: Alert, Oriented ...Motor Strength: WNL Labs: CBC, BMP 05/13/19 06:45 05/13/19 06:45 INR, PTT INR 3.28 (0.83-1.09) H 05/13/19 06:45 Laboratory Tests 05/12/19 05/13/19 05/13/19 18:40 06:45 06:45 WBC 4.3 Hgb 8.8 L Plt Count 110 L INR 3.28 H Sodium Potassium BUN Creatinine Troponin I 0.09 H B-Natriuretic Peptide 05/13/19 06:45 WBC Hgb Plt Count INR Sodium 139 Potassium 4.4 BUN 50.5 H Creatinine 2.2 H Troponin I 0.27 H B-Natriuretic Peptide 47111.5 H Assessment/Plan a/p: 88 m hx pafib (on coumadin), cad s/p inferior OK 1997, s/p cabg x3 1983 and 1997 , bio avr (1983 and 1997), hld, htn, tia, s/p right cea, pad with severe bl le dz s/p stenting and bypass, AAA, DM, ckd (1.3-1.7), obesity, dvt, hcv, p/w edema , sob cough lower ext edema, acute on chronic diastolic HF - cont IV lasix, monitor Cr, lytes, daily weights Pafib (on coumadin): - Rate controlled on BB. - AC with coumadin. Dosing per inr, goal 2-3 cad s/p inferior OK 1997, s/p cabg x3 1983 and 1997: -stable, no angina, nl lvef -cont medical management s/p bio avr - nl function on 08/2018 echo - outpatient follow up hld: -cont statin htn: - appears improved. - hydralazine increased to 50 mg BID, cont other home meds pad, s/p cea, s/p le bypass/stenting: - Claudication is stable. Pt has been evaluated by several vascular surgeons in the past and his le dz is deemed non revascularizable. Recent carotid US shows stable disease, no new sxs. Continue current cardiac meds. AAA: - evaluated by vascular in past and they felt he is not a surgical candidate due to high risk - outpatient CT monitoring - Continue bb, statin.
[2019-05-13] MEDS: LOSARTAN POTASSIUM 50 MG TABLET (FP) PO SCH ×2 (09:51→23:27)
[2019-05-13] MEDS: CEFTRIAXONE 1 GM in DEXTROSE 5%-WATER - 50 ML IVPB SCH (09:51)
[2019-05-13] MEDS: ATENOLOL 25 MG TABLET (FP) PO SCH ×2 (09:51→23:27)
[2019-05-13] MEDS: hydrALAZINE HCL 25 MG TABLET (FP) PO SCH ×2 (09:52→23:27)
[2019-05-13] MEDS ORDERED: PT OWN MED DRAWER 7, Y5N ONE ×3 (09:56→23:31)
--- NOTE | 2019-05-13 11:44 | PN ---
Progress Note (short form) - Note Progress Note: PULMONARY CONSULTATION DICTATED 05/13/19 IMP ACUTE ON CHRONIC HYPOXEMIC/HYPERCAPNEIC RESPIRATORY FAILURE ACUTE ON CHRONIC CHF COPD O2 DEPENDENT WITH EXACERBATION AFIB S/P AVR ASHD S/P CABG HTN HLD AAA NOT A SURGICAL CANDIDATE + TROPONIN ELEVATED LACTATE LEVEL ANEMIA PVE H/O CEA PLAN LASIX O2 INHALED BRONCHODILATORS SHORT COURSE OF STEROIDS ABX RATE CONTROL AC DAILY WTS MONITOR LYTES,RENAL FUNCTION,H+H TREND LACTATE TREND TROPONIN CHEST CT DR SINGH Problem List - Problems (1) Acute on chronic systolic CHF (congestive heart failure) Code(s): I50.23 - ACUTE ON CHRONIC SYSTOLIC (CONGESTIVE) HEART FAILURE (2) Acute on chronic respiratory failure with hypoxemia Code(s): J96.21 - ACUTE AND CHRONIC RESPIRATORY FAILURE WITH HYPOXIA (3) Anemia Code(s): D64.9 - ANEMIA, UNSPECIFIED Qualifiers: Anemia type: B12 deficiency (4) Aortic aneurysm Code(s): I71.9 - AORTIC ANEURYSM OF UNSPECIFIED SITE, WITHOUT RUPTURE (5) Atrial fibrillation Code(s): I48.91 - UNSPECIFIED ATRIAL FIBRILLATION Qualifiers: Atrial fibrillation type: chronic (6) COPD (chronic obstructive pulmonary disease) Code(s): J44.9 - CHRONIC OBSTRUCTIVE PULMONARY DISEASE, UNSPECIFIED (7) Chronic renal insufficiency Code(s): N18.9 - CHRONIC KIDNEY DISEASE, UNSPECIFIED Qualifiers: Chronic kidney disease stage: unspecified stage Qualified Code(s): N18.9 - Chronic kidney disease, unspecified (8) History of aortic valve replacement with bioprosthetic valve Code(s): Z98.890 - OTHER SPECIFIED POSTPROCEDURAL STATES; Z95.3 - PRESENCE OF XENOGENIC HEART VALVE (9) PAD (peripheral artery disease) Code(s): I73.9 - PERIPHERAL VASCULAR DISEASE, UNSPECIFIED (10) Acute on chronic respiratory failure with hypoxia and hypercapnia Code(s): J96.21 - ACUTE AND CHRONIC RESPIRATORY FAILURE WITH HYPOXIA; J96.22 - ACUTE AND CHRONIC RESPIRATORY FAILURE WITH HYPERCAPNIA (11) Troponin I above reference range Code(s): R79.89 - OTHER SPECIFIED ABNORMAL FINDINGS OF BLOOD CHEMISTRY (12) Lactate blood increase Code(s): R79.89 - OTHER SPECIFIED ABNORMAL FINDINGS OF BLOOD CHEMISTRY
[2019-05-13 13:21] LABS: URINE APPEARANCE CLEAR; URINE BILIRUBIN NEGATIVE (NEGATIVE); URINE COLOR YELLOW; URINE GLUCOSE (UA) NEGATIVE (NEGATIVE); URINE KETONE NEGATIVE (NEGATIVE); URINE LEUK ESTERASE NEGATIVE (NEGATIVE); URINE NITRITE NEGATIVE (NEGATIVE); URINE PROTEIN NEGATIVE (NEGATIVE); URINE UROBILINOGEN 0.2 mg/dL (0.2-1.0)
--- NOTE | 2019-05-13 15:17 | ECHO ---
Name: CARL ESCOTO Exam:Adult Echocardiogram Study Date: 05/13/2019 02:26 PM Age: 88 yrs Height: 64 in Weight: 186 lb BSA: 1.9 m2 MMode/2D Measurements & Calculations IVSd: 1.3 cm Ao root diam: 2.9 cm LVIDd: 4.4 cm LA dimension: 4.7 cm LVIDs: 3.5 cm ACS: 1.8 cm LVPWd: 1.4 cm EDV(Teich): 89.0 ml LVOT diam: 1.7 cm ESV(Teich): 50.4 ml RV S Carloz: 5.4 cm/sec Doppler Measurements & Calculations MV E max carloz: 128.5 cm/sec MV A max carloz: 75.9 cm/sec MV dec slope: 174.0 cm/sec2 MV E/A: 1.7 MV dec time: 0.13 sec Ao V2 max: 162.9 cm/sec LV V1 max P.4 mmHg Ao max P.6 mmHg LV V1 mean P.7 mmHg Ao V2 mean: 97.0 cm/sec LV V1 max: 116.3 cm/sec Ao mean P.5 mmHg LV V1 mean: 76.3 cm/sec Ao V2 VTI: 29.0 cm LV V1 VTI: 23.4 cm SILVIA(I,D): 1.8 cm2 SILVIA(V,D): 1.6 cm2 MR max carloz: 432.5 cm/sec SV(LVOT): 51.2 ml MR max P.8 mmHg TR max carloz: 303.8 cm/sec PA V2 max: 62.6 cm/sec TR max P.3 mmHg PA max P.6 mmHg Med Peak E' Carloz: 5.1 cm/sec Med E/e': 25.1 Lat Peak E' Carloz: 6.1 cm/sec Lat E/e': 21.1 Procedure The study was technically difficult with many images being suboptimal in quality. Left Ventricle Calcified papillary muscle. Left ventricular systolic function is grossly normal. Ejection Fraction = 50-55%. The transmitral spectral Doppler flow pattern is suggestive of pseudonormalization. Regional wall mot ion abnormalities cannot be excluded due to limited visualization. Right Ventricle The right ventricle is grossly normal size. The right ventricular systolic function is grossly normal . Atria The left atrium is mildly dilated. Mitral Valve The mitral valve is grossly normal. There is mild mitral regurgitation. Tricuspid Valve The tricuspid valve is normal in structure and function. There is mild tricuspid regurgitation. Right ventricular systolic pressure is elevated at 40-50mmHg. Aortic Valve There is a bioprosthetic aortic valve. No hemodynamically significant valvular aortic stenosis. No ao rtic regurgitation is present. Pulmonic Valve The pulmonic valve is not well seen, but is grossly normal. There is no pulmonic valvular stenosis. Great Vessels The aortic root is normal size. Pericardium/Pleura There is no pericardial effusion. Interpretation Summary The study was technically difficult with many images being suboptimal in quality. Regional wall motion abnormalities cannot be excluded due to limited visualization. Left ventricular systolic function is grossly normal. Ejection Fraction = 50-55%. The left atrium is mildly dilated. There is mild mitral regurgitation. There is mild tricuspid regurgitation. Right ventricular systolic pressure is elevated at 40-50mmHg. There is a bioprosthetic aortic valve. There is no pericardial effusion. MD Sam *Ramiro 05/13/2019 03:17 PM
--- NOTE | 2019-05-13 16:28 | CONSULT ---
Consult - text type - Consultation Consultation Note: Renal consult for CKD This is a 88 year old gentleman with history of CAD s/p CABG, CHF, COPD, Hypertension, HLD, DVT who presents from home with complaints of shortness of breath and cough. Pt seen and examined at the bedside. Reports feeling a little better but still has significant shortness of breath with exertion. Denies any abdominal pain, fever or chills. Making urine. Has Russo in place. No chest pain , abdominal pain. N/V/D. PMHx: as above Allergies: NKDA Family Hx: NC Social Hx: No T/A/D ROS: as per HPI, all other pertinent ros negative. Home Medications Medication Instructions Recorded Ascorbic Acid [Vitamin C] 500 mg PO DAILY 06/16/17 Atenolol [Tenormin -] 25 mg PO BID 06/16/17 Atorvastatin Ca [Lipitor] 20 mg PO HS 06/16/17 Bifidobacterium Infantis [Align] 10.5 mg PO DAILY 06/16/17 Budesonide/Formeterol Fumarate 1 inh PO BID 06/16/17 [SYMBICORT 160/4.5mcg -] Cholecalciferol (Vitamin D3) 2,000 unit PO DAILY 06/16/17 [Vitamin D3] Cyanocobalamin [Vitamin B12 -] 100 mcg PO DAILY 06/16/17 Docusate Sodium [Colace] 100 mg PO TID 06/16/17 Terazosin HCl 2 mg PO HS 06/16/17 Warfarin Sodium [Coumadin] 2 mg PO HS 06/16/17 hydrALAZINE HCL [Apresoline -] 25 mg PO BID #60 tablet 06/25/17 Lactobacillus Acidophilus [Bacid -] 1 tab PO DAILY tab 08/31/18 Tiotropium [place] [Spiriva 2 puff IH DAILY #1 inhaler 08/31/18 Respimat] Losartan Potassium 50 mg PO BID #30 tablet 04/29/19 Bumetanide 2 mg PO BID 05/12/19 Febuxostat 40 mg PO HS 05/12/19 Latanoprost 0.005% Eye Drops 1 drop OU HS 05/12/19 [Xalatan 0.005% Eye Drops -] Potassium Chloride [K-Dur -] 20 meq PO HS 05/12/19 Potassium Chloride [K-Dur -] 40 meq PO AM 05/12/19 Vital Signs Temperature 97.8 F 05/13/19 14:00 Pulse Rate 72 05/13/19 14:00 Respiratory Rate 20 05/13/19 14:00 Blood Pressure 150/78 05/13/19 14:00 O2 Sat by Pulse Oximetry (%) 100 05/13/19 09:00 Intake & Output 05/10/19 05/11/19 05/12/19 05/13/19 23:59 23:59 23:59 23:59 Intake Total 300 420 Output Total 700 2200 Balance -400 -1780 Weight 84.822 kg 84.368 kg NAD awake and alert neck supple RRR CTA, no rales or wheeze soft NT/ND no LE edema, clubbing or cyanosis CBC, BMP 05/13/19 06:45 05/13/19 06:45 Current Medications Albuterol/Ipratropium (Duoneb -) 1 amp NEB RQID [facility] Last Admin: 05/13/19 12:17 Dose: 1 amp Atenolol (Tenormin -) 25 mg PO BID [facility] Last Admin: 05/13/19 09:51 Dose: 25 mg Atorvastatin Calcium (Lipitor -) 20 mg PO HS [facility] Last Admin: 05/12/19 22:16 Dose: 20 mg Budesonide/Formoterol Fumarate (Symbicort 160/4.5mcg -) 2 puff IH BID [facility] Last Admin: 05/13/19 11:55 Dose: 2 puff Docusate Sodium (Colace -) 100 mg PO TID [facility] Last Admin: 05/13/19 14:01 Dose: 100 mg Furosemide (Lasix Injection -) 80 mg IVPB BID@0600,1400 [facility] Last Admin: 05/13/19 14:01 Dose: 80 mg Hydralazine HCl (Apresoline -) 50 mg PO BID [facility] Last Admin: 05/13/19 09:52 Dose: 50 mg Ceftriaxone Sodium 1 gm/ (Dextrose) 50 mls @ 100 mls/hr IVPB DAILY [facility]; Protocol Last Admin: 05/13/19 09:51 Dose: 100 mls/hr Latanoprost (Xalatan 0.005% Eye Drops -) 1 drop OU HS [facility] Last Admin: 05/13/19 00:15 Dose: Not Given Losartan Potassium (Cozaar -) 50 mg PO BID [facility] Last Admin: 05/13/19 09:51 Dose: 50 mg Methylprednisolone Sodium Succinate (Solu-Medrol -) 40 mg IVPUSH Q6H-IV [facility] Last Admin: 05/13/19 14:00 Dose: 40 mg Potassium Chloride (K-Dur -) 20 meq PO HS [facility] Last Admin: 05/12/19 22:16 Dose: 20 meq Potassium Chloride (K-Dur -) 40 meq PO AM [facility] Last Admin: 05/13/19 06:42 Dose: 40 meq Terazosin HCl (Hytrin -) 2 mg PO HS [facility] Warfarin Sodium (Coumadin -) 2 mg PO 1800 [facility] Last Admin: 05/12/19 17:18 Dose: 2 mg 88 year old gentleman with history of CAD s/p CABG, CHF, COPD, Hypertension, HLD , DVT who presents from home with complaints of shortness of breath and cough. 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 CHF/Fluid overload 3. CAD 4. Hypertension 5. Acute on chronic anemia Cr slightly higher then baseline (2.1) likely due to CHF exacerbation/IV diureiss Expect BUN to rise given pt is on IV steroids Continue Lasix 80mg IV BID trend urine output and daily weights Trial of void in AM Continue empiric antibiotoics and steroids as per primary team check iron studies for anemia Thank you Will follow Ko Toth DO
[2019-05-13] MEDS: WARFARIN NA 2 MG TABLET (UD) PO SCH (17:15)
--- NOTE | 2019-05-13 17:31 | PN ---
Progress Note, Physician History of Present Illness: AWAKE, ALERT IN BED APPEARS LESS DYSPNEIC + COUGH, YELLOW SPUTUM NO C/O FEVER/ CHILLS TOLERATED CEPHALOSPORIN - Current Medication List Current Medications: Active Medications Albuterol/Ipratropium (Duoneb -) 1 amp NEB RQID [facility] Last Admin: 05/13/19 16:41 Dose: 1 amp Atenolol (Tenormin -) 25 mg PO BID [facility] Last Admin: 05/13/19 09:51 Dose: 25 mg Atorvastatin Calcium (Lipitor -) 20 mg PO HS [facility] Last Admin: 05/12/19 22:16 Dose: 20 mg Budesonide/Formoterol Fumarate (Symbicort 160/4.5mcg -) 2 puff IH BID [facility] Last Admin: 05/13/19 11:55 Dose: 2 puff Docusate Sodium (Colace -) 100 mg PO TID [facility] Last Admin: 05/13/19 14:01 Dose: 100 mg Furosemide (Lasix Injection -) 80 mg IVPB BID@0600,1400 [facility] Last Admin: 05/13/19 14:01 Dose: 80 mg Hydralazine HCl (Apresoline -) 50 mg PO BID [facility] Last Admin: 05/13/19 09:52 Dose: 50 mg Ceftriaxone Sodium 1 gm/ (Dextrose) 50 mls @ 100 mls/hr IVPB DAILY [facility]; Protocol Last Admin: 05/13/19 09:51 Dose: 100 mls/hr Latanoprost (Xalatan 0.005% Eye Drops -) 1 drop OU HS [facility] Last Admin: 05/13/19 00:15 Dose: Not Given Losartan Potassium (Cozaar -) 50 mg PO BID [facility] Last Admin: 05/13/19 09:51 Dose: 50 mg Methylprednisolone Sodium Succinate (Solu-Medrol -) 40 mg IVPUSH Q6H-IV [facility] Last Admin: 05/13/19 14:00 Dose: 40 mg Potassium Chloride (K-Dur -) 20 meq PO HS [facility] Last Admin: 05/12/19 22:16 Dose: 20 meq Potassium Chloride (K-Dur -) 40 meq PO AM [facility] Last Admin: 05/13/19 06:42 Dose: 40 meq Terazosin HCl (Hytrin -) 2 mg PO HS [facility] Warfarin Sodium (Coumadin -) 2 mg PO 1800 [facility] Last Admin: 05/13/19 17:15 Dose: 2 mg - Objective Vital Signs: Vital Signs Temperature 97.8 F 05/13/19 17:02 Pulse Rate 77 05/13/19 17:02 Respiratory Rate 20 05/13/19 17:02 Blood Pressure 130/71 05/13/19 17:02 O2 Sat by Pulse Oximetry (%) 99 05/13/19 16:40 Constitutional: Yes: No Distress, Obese Cardiovascular: Yes: Regular Rate and Rhythm, S1, S2 Respiratory: Yes: Rhonchi Gastrointestinal: Yes: Normal Bowel Sounds, Soft. No: Tenderness Edema: Yes Labs: CBC, BMP 05/13/19 06:45 05/13/19 06:45 INR, PTT INR 3.28 (0.83-1.09) H 05/13/19 06:45 Assessment/Plan PNEUMONIA R/O SEPSIS SECONDARY TO PNEUMONIA LACTIC ACIDOSIS PCN ALLERGY S/P AVR CKD AWAIT C/S CONTINUE [id number]
--- NOTE | 2019-05-13 18:55 | CONS ---
PULMONARY CONSULTATION DATE OF CONSULTATION: 05/13/2019 REFERRING PHYSICIAN: Linh Mobley MD HISTORY: Patient is an 88-year-old male known to me from previous hospitalizations as well as office follow ups with extensive past medical history that includes advanced COPD on home O2, O2 dependent, ASHD, status post LA in 1997, status post coronary artery bypass graft in 1983 and 1997, status post bio AVR in 1983, hypertension, hyperlipidemia, TIA, history of right CEA, severe bilateral lower extremity disease status post stenting and bypass, abdominal aortic aneurysm as well as thoracic aortic aneurysm not a surgical candidate being followed by Vascular, diabetes, chronic kidney disease, obesity, DVT. Admitted to [facility] with complaint of 2-day history of increasing shortness of breath, cough, and chest congestion. Patient states the past couple of days he started noticing increasing shortness of breath, cough productive of yellowish sputum. He denied any fevers, chills. Denied any nausea, vomiting, or diaphoresis. He states on the day of admission he started developing severe shortness of breath at which time he went to the emergency room. In the ER, he was noted to be in moderate respiratory distress. At the time, he was started on Lasix as well as antibiotics and Solu-Medrol and transferred up to medical floor for further management. He was evaluated by Cardiology for the above. Patient has a history of tobacco use. Quit greater than 50 years ago. There is no history of occupational exposure to chemicals or fumes. There is no history of recent travel. Of note is the patient is also noted to have elevated lactate level as well as positive troponins on admission. PAST MEDICAL HISTORY: Again, includes ASHD, status post CABG x3, status post AVR, carotid artery disease, status post carotid endarterectomy, advanced COPD, O2 dependent on 3 L nasal cannula, status post LA, hypertension, hyperlipidemia, TIA, abdominal aortic aneurysm, thoracic aortic aneurysm, not a surgical candidate, diabetes, hypertensive cardiovascular disease. Paroxysmal atrial fibrillation. Peripheral vascular disease. REVIEW OF SYSTEMS: Positive orthopnea, positive dyspnea, positive cough, positive chest congestion, positive wheezing. No chest pain, no nausea, no vomiting, no hemoptysis, no fever, no chills. CURRENT MEDICATIONS: Include Symbicort 160/4.5, Solu-Medrol, Hytrin, Cozaar, ceftriaxone, DuoNeb, Tenormin, Colace, Apresoline, Lasix, Xalatan, and K-Dur. PHYSICAL EXAMINATION: General: Patient is a well-developed, well-nourished male awake and alert, mildly dyspneic on nasal O2. Vital Signs: Blood pressure is 109/79, respiratory rate is 21, heart rate is 70 , temperature 97.6. HEENT: Normocephalic, atraumatic. Neck: Supple. Heart: Irregular irregular. S1, S2. Chest: Diffuse bilateral wheezes. Abdomen: Soft. Bowel sounds are positive. Extremities: No lower extremity edema. LABORATORIES: Blood gas; pH 7.38, PCO2 of 47, PO2 of 124, bicarbonate 27, saturation 98. INR 3.28, WBCs 4.3, hemoglobin 8.8, hematocrit 29.6 with a platelet count of 110,000. BUN 50, creatinine 2.2, lactate level 2.6. BNP 13,871. Troponin 0.27. Initial 0.09. Chest x-ray: Increased markings bilaterally at the bases. IMPRESSION: Acute on chronic hypoxemic, hypercapnic respiratory failure secondary to multiple factors: 1. Acute on chronic congestive heart failure. 2. Chronic obstructive pulmonary disease with acute exacerbation. 3. Atrial fibrillation. 4. Arteriosclerotic heart disease status post coronary artery bypass graft. 5. Status post aortic valve replacement. 6. Hypertension. 7. Hyperlipidemia. 8. Abdominal aortic aneurysm not a surgical candidate. 9. Positive troponin as well as non-ST myocardial infarction versus demand ischemia. 10. Elevated lactate level. 11. Anemia. PLAN: Lasix. Supplemental O2. Inhaled bronchodilators. Short course of steroids. Antibiotics. Rate control. Continue anticoagulation. Monitor INR. Daily weighs. Monitor electrolytes, renal function, hemoglobin, hematocrit. Trend lactate. Trend troponin. CT scan of the chest. SARAH BETH SINGH M.D. PAUL/[id number] MTDD
--- NOTE | 2019-05-13 18:58 | CONS ---
DATE OF CONSULTATION: DATE OF DICTATION: 05/12/2019 INFECTIOUS DISEASE CONSULTATION HISTORY OF PRESENT ILLNESS: The patient is an 88-year-old male who is evaluated for possible sepsis. He was admitted with a 3-day history of increasing shortness of breath and cough productive of yellowish sputum. He was evaluated in the emergency room, where he was acutely short of breath. Chest x-ray showed increased markings bilaterally, with possible superimposed right lower lobe infiltrate. He was empirically treated with Levaquin, after cultures were ordered. In the emergency room he received Decadron and bronchodilators for suspected COPD. At the present time he is awake. He is short of breath at rest on nasal cannula. He reports difficulty expectorating; however, he does bring up yellowish sputum. He denies any hemoptysis. His last hospitalization was in August of this year. He has a history of a PENICILLIN ALLERGY, and aortic valve replacement. PAST MEDICAL HISTORY: Positive for COPD, hyperlipidemia, congestive heart failure, hypertension, TIA, DVT, history of left lower extremity cellulitis. PAST SURGICAL HISTORY: Status post coronary artery bypass grafting, aortic valve replacements in 1983 and 1997 (the patient has a bioprosthetic valve). ALLERGIES: PENICILLIN (rash). The patient has tolerated cephalosporins in the past. MEDICATIONS: Include Tylenol, albuterol, atenolol, Lipitor, Lasix, hydralazine, losartan. SOCIAL HISTORY: Lives at home with his significant other. Nonsmoker, nondrinker. REVIEW OF SYSTEMS: Neurologic: No loss of consciousness, seizure activity or focal weakness. Cardiac: As per HPI. Respiratory: As per HPI. Gastrointestinal: Negative for vomiting or diarrhea. Genitourinary: Negative for urinary tract symptoms. PHYSICAL EXAMINATION: General: He is awake. He is short of breath at rest. The patient is obese. Vital Signs: Temperature 98.1, blood pressure 158/83, pulse 67 and regular, respirations 22 per minute. HEENT: Sclerae anicteric. Cardiac: Heart sounds S1, S2, with a 2/6 pansystolic murmur. Lungs: Bilateral rhonchi, mild wheezing and bibasilar crepitations. Abdomen: Obese, nontender. Extremities: Positive for lower extremity edema and chronic venous stasis dermatitis. IMPRESSION: 1. Rule out community-acquired versus atypical right lower lobe pneumonia. 2. Possible sepsis secondary to pneumonia. 3. Exacerbation of chronic obstructive pulmonary disease. 4. Decompensated congestive heart failure. 5. Status post aortic valve replacement. 6. PENICILLIN ALLERGY. 7. Chronic kidney disease. PLAN: Await sepsis workup. Empirical antibiotic coverage with ceftriaxone and vancomycin. The patient has tolerated cephalosporins in the past. Case discussed with the patient's present at the time of the examination. Thank you for the kind referral. DONAVON CROCKER M.D. FRANCISCO/[id number]
[2019-05-13] MEDS: ATORVASTATIN CA 20 MG TABLET (FP) PO SCH (23:27)
[2019-05-13] MEDS: TERAZOSIN HCL 1 MG CAPSULE PO SCH (23:28)
[2019-05-14] MEDS ORDERED: ZOLPIDEM TARTRATE 5 MG TABLET PO ONE (01:34)
[2019-05-14] MEDS: methylPREDNISolone NA SUCC 40 MG/1 ML VIAL IVPUSH SCH ×4 (04:00→21:06)
[2019-05-14] MEDS: FUROSEMIDE 100 MG/10 ML INJECTABLE VIAL IVPB SCH ×2 (05:50→14:14)
[2019-05-14] MEDS: DOCUSATE SODIUM 100 MG CAPSULE (FP) PO SCH ×3 (05:50→21:10)
[2019-05-14] MEDS: POTASSIUM CHLORIDE TABS 20 MEQ TABLET.ER (FP) PO SCH ×2 (06:04→21:10)
[2019-05-14 06:55] LABS: HEMATOCRIT 27.5 % (35.4-49); HEMOGLOBIN 8.9 GM/dL (11.7-16.9); MCH 28.3 pg (25.7-33.7); MCHC 32.4 g/dl (32.0-35.9); MEAN CELL VOLUME 87.4 fl (80-96); RBC 3.15 M/mm3 (4.00-5.60); WHITE BLOOD COUNT 4.3 K/mm3 (4.0-10.0)
[2019-05-14 06:56] LABS: LYMPH % 6.7 % (8-40); MEAN PLT VOLUME 8.2 fl (7.5-11.1); NEUT % 86.3 % (42.8-82.8); PLATELET COUNT 114 K/MM3 (134-434); RDW 19.8 % (11.9-15.9)
[2019-05-14 07:41] LABS: ALBUMIN 3.2 g/dl (3.4-5.0); BILIRUBIN,TOTAL 0.3 mg/dL (0.2-1); BLOOD UREA NITROGEN 57.5 mg/dL (7-18); CALCIUM 8.7 mg/dL (8.5-10.1); CREATININE 2.2 mg/dL (0.55-1.3); MAGNESIUM 2.8 mg/dL (1.8-2.4); PHOSPHOROUS 4.6 mg/dL (2.5-4.9); POTASSIUM 4.4 mmol/L (3.5-5.1); TOT PROT 7.1 g/dl (6.4-8.2)
[2019-05-14] MEDS: ALBUTEROL SO4 2.5/IPRATROPIUM 0.5 INH SOL 3 ML VIAL.NEB. NEB SCH ×4 (08:18→20:15)
[2019-05-14] MEDS ORDERED: DEXTROSE 5%-WATER - 50 ML IVPB ONE (09:57)
[2019-05-14] MEDS ORDERED: cefTRIAXone SODIUM 1 GM VIAL ONE (09:57)
[2019-05-14] MEDS: CEFTRIAXONE 1 GM in DEXTROSE 5%-WATER - 50 ML IVPB SCH (10:06)
[2019-05-14] MEDS: hydrALAZINE HCL 25 MG TABLET (FP) PO SCH ×2 (10:06→21:09)
[2019-05-14] MEDS: LOSARTAN POTASSIUM 50 MG TABLET (FP) PO SCH ×2 (10:07→22:00)
[2019-05-14] MEDS: ATENOLOL 25 MG TABLET (FP) PO SCH ×2 (10:07→21:11)
[2019-05-14] MEDS ORDERED: PT OWN MED DRAWER 7, Y5N ONE ×2 (10:09→16:33)
--- NOTE | 2019-05-14 10:15 | PN ---
Progress Note, Physician History of Present Illness: pulmonary alert,less congested,+cough - Current Medication List Current Medications: Active Medications Albuterol/Ipratropium (Duoneb -) 1 amp NEB RQID [facility] Last Admin: 05/14/19 08:18 Dose: 1 amp Atenolol (Tenormin -) 25 mg PO BID [facility] Last Admin: 05/13/19 23:27 Dose: 25 mg Atorvastatin Calcium (Lipitor -) 20 mg PO HS [facility] Last Admin: 05/13/19 23:27 Dose: 20 mg Budesonide/Formoterol Fumarate (Symbicort 160/4.5mcg -) 2 puff IH BID [facility] Last Admin: 05/13/19 23:28 Dose: 2 puff Docusate Sodium (Colace -) 100 mg PO TID [facility] Last Admin: 05/14/19 05:50 Dose: 100 mg Furosemide (Lasix Injection -) 80 mg IVPB BID@0600,1400 [facility] Last Admin: 05/14/19 05:50 Dose: 80 mg Hydralazine HCl (Apresoline -) 50 mg PO BID [facility] Last Admin: 05/13/19 23:27 Dose: 50 mg Ceftriaxone Sodium 1 gm/ (Dextrose) 50 mls @ 100 mls/hr IVPB DAILY [facility]; Protocol Last Admin: 05/13/19 09:51 Dose: 100 mls/hr Latanoprost (Xalatan 0.005% Eye Drops -) 1 drop OU HS [facility] Last Admin: 05/13/19 23:29 Dose: Not Given Losartan Potassium (Cozaar -) 50 mg PO BID [facility] Last Admin: 05/13/19 23:27 Dose: 50 mg Methylprednisolone Sodium Succinate (Solu-Medrol -) 40 mg IVPUSH Q6H-IV [facility] Last Admin: 05/14/19 04:00 Dose: 40 mg Potassium Chloride (K-Dur -) 20 meq PO HS [facility] Last Admin: 05/13/19 23:27 Dose: 20 meq Potassium Chloride (K-Dur -) 40 meq PO AM [facility] Last Admin: 05/14/19 06:04 Dose: 40 meq Terazosin HCl (Hytrin -) 2 mg PO HS [facility] Last Admin: 05/13/19 23:28 Dose: 2 mg Warfarin Sodium (Coumadin -) 2 mg PO 1800 [facility] Last Admin: 05/13/19 17:15 Dose: 2 mg - Objective Vital Signs: Vital Signs Temperature 98.1 F 05/14/19 06:00 Pulse Rate 80 05/14/19 06:00 Respiratory Rate 20 05/14/19 06:00 Blood Pressure 114/72 05/14/19 06:00 O2 Sat by Pulse Oximetry (%) 99 05/13/19 22:00 Constitutional: Yes: Well Nourished, Calm Eyes: Yes: WNL HENT: Yes: WNL Neck: Yes: WNL Cardiovascular: Yes: Pulse Irregular, S1, S2 Respiratory: Yes: Wheezes (bilateral wheezes) Gastrointestinal: Yes: Normal Bowel Sounds, Soft Extremities: Yes: WNL Edema: No Labs: Problem List - Problems (1) Acute on chronic systolic CHF (congestive heart failure) Code(s): I50.23 - ACUTE ON CHRONIC SYSTOLIC (CONGESTIVE) HEART FAILURE (2) Acute on chronic respiratory failure with hypoxemia Code(s): J96.21 - ACUTE AND CHRONIC RESPIRATORY FAILURE WITH HYPOXIA (3) Anemia Code(s): D64.9 - ANEMIA, UNSPECIFIED Qualifiers: Anemia type: B12 deficiency (4) Aortic aneurysm Code(s): I71.9 - AORTIC ANEURYSM OF UNSPECIFIED SITE, WITHOUT RUPTURE (5) Atrial fibrillation Code(s): I48.91 - UNSPECIFIED ATRIAL FIBRILLATION Qualifiers: Atrial fibrillation type: chronic (6) COPD (chronic obstructive pulmonary disease) Code(s): J44.9 - CHRONIC OBSTRUCTIVE PULMONARY DISEASE, UNSPECIFIED (7) Chronic renal insufficiency Code(s): N18.9 - CHRONIC KIDNEY DISEASE, UNSPECIFIED Qualifiers: Chronic kidney disease stage: unspecified stage Qualified Code(s): N18.9 - Chronic kidney disease, unspecified (8) History of aortic valve replacement with bioprosthetic valve Code(s): Z98.890 - OTHER SPECIFIED POSTPROCEDURAL STATES; Z95.3 - PRESENCE OF XENOGENIC HEART VALVE (9) PAD (peripheral artery disease) Code(s): I73.9 - PERIPHERAL VASCULAR DISEASE, UNSPECIFIED (10) Acute on chronic respiratory failure with hypoxia and hypercapnia Code(s): J96.21 - ACUTE AND CHRONIC RESPIRATORY FAILURE WITH HYPOXIA; J96.22 - ACUTE AND CHRONIC RESPIRATORY FAILURE WITH HYPERCAPNIA (11) Troponin I above reference range Code(s): R79.89 - OTHER SPECIFIED ABNORMAL FINDINGS OF BLOOD CHEMISTRY (12) Lactate blood increase Code(s): R79.89 - OTHER SPECIFIED ABNORMAL FINDINGS OF BLOOD CHEMISTRY Assessment/Plan IMP ACUTE ON CHRONIC HYPOXEMIC/HYPERCAPNEIC RESPIRATORY FAILURE ACUTE ON CHRONIC CHF COPD O2 DEPENDENT WITH EXACERBATION AFIB S/P AVR ASHD S/P CABG HTN HLD AAA NOT A SURGICAL CANDIDATE + TROPONIN ELEVATED LACTATE LEVEL ANEMIA PVE H/O CEA PLAN LASIX O2 INHALED BRONCHODILATORS SHORT COURSE OF STEROIDS ABX RATE CONTROL AC DAILY WTS MONITOR LYTES,RENAL FUNCTION,H+H TREND LACTATE TREND TROPONIN CHEST CT DR SINGH Problem List - Problems (1) Acute on chronic systolic CHF (congestive heart failure) Code(s): I50.23 - ACUTE ON CHRONIC SYSTOLIC (CONGESTIVE) HEART FAILURE (2) Acute on chronic respiratory failure with hypoxemia Code(s): J96.21 - ACUTE AND CHRONIC RESPIRATORY FAILURE WITH HYPOXIA (3) Anemia Code(s): D64.9 - ANEMIA, UNSPECIFIED Qualifiers: Anemia type: B12 deficiency (4) Aortic aneurysm Code(s): I71.9 - AORTIC ANEURYSM OF UNSPECIFIED SITE, WITHOUT RUPTURE (5) Atrial fibrillation Code(s): I48.91 - UNSPECIFIED ATRIAL FIBRILLATION Qualifiers: Atrial fibrillation type: chronic (6) COPD (chronic obstructive pulmonary disease) Code(s): J44.9 - CHRONIC OBSTRUCTIVE PULMONARY DISEASE, UNSPECIFIED (7) Chronic renal insufficiency Code(s): N18.9 - CHRONIC KIDNEY DISEASE, UNSPECIFIED Qualifiers: Chronic kidney disease stage: unspecified stage Qualified Code(s): N18.9 - Chronic kidney disease, unspecified (8) History of aortic valve replacement with bioprosthetic valve Code(s): Z98.890 - OTHER SPECIFIED POSTPROCEDURAL STATES; Z95.3 - PRESENCE OF XENOGENIC HEART VALVE (9) PAD (peripheral artery disease) Code(s): I73.9 - PERIPHERAL VASCULAR DISEASE, UNSPECIFIED (10) Acute on chronic respiratory failure with hypoxia and hypercapnia Code(s): J96.21 - ACUTE AND CHRONIC RESPIRATORY FAILURE WITH HYPOXIA; J96.22 - ACUTE AND CHRONIC RESPIRATORY FAILURE WITH HYPERCAPNIA (11) Troponin I above reference range Code(s): R79.89 - OTHER SPECIFIED ABNORMAL FINDINGS OF BLOOD CHEMISTRY (12) Lactate blood increase Code(s): R79.89 - OTHER SPECIFIED ABNORMAL FINDINGS OF BLOOD CHEMISTRY
[2019-05-14] MEDS: guaiFENesin/CODEINE 5 ML UNIT-DOSE CUPS PO PRN ×2 (10:33→17:59)
--- NOTE | 2019-05-14 10:36 | PN ---
Progress Note (short form) - Note Progress Note: dry cough less sob Vital Signs Period Temp Pulse Resp BP Sys/Hernandez Pulse Ox Last 24 Hr 97.8 F-98.7 F 72-95 20-20 114-190/71-98 99-99 cor-rrr lungs bilateral rhonchi abd soft,nt ext no edema CBC, BMP 05/14/19 06:20 05/14/19 06:20 Microbiology 05/13/19 02:11 Urine - Urine Russo Urine Culture - Final NO GROWTH OBTAINED 05/13/19 07:00 Urine For Antigen Detection Legionella Antigen - Final 05/13/19 07:00 Urine For Antigen Detection Streptococcus pneumoniae Antigen (M - Final 05/12/19 11:01 Blood - Peripheral Venous Blood Culture - Preliminary NO GROWTH OBTAINED AFTER 24 HOURS, INCUBATION TO CONTINUE FOR 4 DAYS. 05/12/19 11:01 Blood - Peripheral Venous Blood Culture - Preliminary NO GROWTH OBTAINED AFTER 24 HOURS, INCUBATION TO CONTINUE FOR 4 DAYS. a/p chf/copd ?pneumonia history of AVR CKD pen allergy continue ceftriaxone continue steroids
[2019-05-14] MEDS: BUDESONIDE/FORMETEROL FUMARATE 160/4.5 mcg INHALER IH SCH ×2 (11:12→21:20)
--- NOTE | 2019-05-14 11:16 | PN ---
Progress Note, Physician Chief Complaint: AWAKE ALERT FEELING BETER SEEN WITH LOAD OUT PERSON DR LIN - Current Medication List Current Medications: Active Medications Albuterol/Ipratropium (Duoneb -) 1 amp NEB RQID [facility] Last Admin: 05/14/19 08:18 Dose: 1 amp Atenolol (Tenormin -) 25 mg PO BID [facility] Last Admin: 05/14/19 10:07 Dose: 25 mg Atorvastatin Calcium (Lipitor -) 20 mg PO HS [facility] Last Admin: 05/13/19 23:27 Dose: 20 mg Budesonide/Formoterol Fumarate (Symbicort 160/4.5mcg -) 2 puff IH BID [facility] Last Admin: 05/13/19 23:28 Dose: 2 puff Docusate Sodium (Colace -) 100 mg PO TID [facility] Last Admin: 05/14/19 05:50 Dose: 100 mg Furosemide (Lasix Injection -) 80 mg IVPB BID@0600,1400 [facility] Last Admin: 05/14/19 05:50 Dose: 80 mg Guaifenesin/Codeine Phosphate (Robitussin Ac -) 5 ml PO TID PRN PRN Reason: COUGH Last Admin: 05/14/19 10:33 Dose: 5 ml Hydralazine HCl (Apresoline -) 50 mg PO BID [facility] Last Admin: 05/14/19 10:06 Dose: 50 mg Ceftriaxone Sodium 1 gm/ (Dextrose) 50 mls @ 100 mls/hr IVPB DAILY [facility]; Protocol Last Admin: 05/14/19 10:06 Dose: 100 mls/hr Latanoprost (Xalatan 0.005% Eye Drops -) 1 drop OU HS [facility] Last Admin: 05/13/19 23:29 Dose: Not Given Losartan Potassium (Cozaar -) 50 mg PO BID [facility] Last Admin: 05/14/19 10:07 Dose: 50 mg Methylprednisolone Sodium Succinate (Solu-Medrol -) 40 mg IVPUSH Q6H-IV [facility] Last Admin: 05/14/19 10:06 Dose: 40 mg Potassium Chloride (K-Dur -) 20 meq PO HS [facility] Last Admin: 05/13/19 23:27 Dose: 20 meq Potassium Chloride (K-Dur -) 40 meq PO AM [facility] Last Admin: 05/14/19 06:04 Dose: 40 meq Terazosin HCl (Hytrin -) 2 mg PO HS [facility] Last Admin: 05/13/19 23:28 Dose: 2 mg Warfarin Sodium (Coumadin -) 2 mg PO 1800 [facility] Last Admin: 05/13/19 17:15 Dose: 2 mg - Objective Vital Signs: Vital Signs Temperature 98.1 F 05/14/19 06:00 Pulse Rate 80 05/14/19 06:00 Respiratory Rate 20 05/14/19 06:00 Blood Pressure 114/72 05/14/19 06:00 O2 Sat by Pulse Oximetry (%) 99 05/13/19 22:00 Constitutional: Yes: No Distress Eyes: Yes: WNL HENT: Yes: WNL Neck: Yes: WNL Cardiovascular: Yes: Pulse Irregular Respiratory: Yes: On Nasal O2, Wheezes Gastrointestinal: Yes: Soft, Abdomen, Obese Genitourinary: Yes: [place] Present Musculoskeletal: Yes: Muscle Weakness Edema: Yes Peripheral Pulses WNL: Yes Neurological: Yes: Pre-Existing Deficit ...Motor Strength: LLE, RLE Psychiatric: Yes: Other Labs: CBC, BMP 05/14/19 06:20 05/14/19 06:20 INR, PTT INR 3.28 (0.83-1.09) H 05/13/19 06:45 Problem List - Problems (1) Acute on chronic respiratory failure with hypoxia and hypercapnia Code(s): J96.21 - ACUTE AND CHRONIC RESPIRATORY FAILURE WITH HYPOXIA; J96.22 - ACUTE AND CHRONIC RESPIRATORY FAILURE WITH HYPERCAPNIA (2) Acute on chronic systolic CHF (congestive heart failure) Code(s): I50.23 - ACUTE ON CHRONIC SYSTOLIC (CONGESTIVE) HEART FAILURE (3) Anemia Code(s): D64.9 - ANEMIA, UNSPECIFIED Qualifiers: Anemia type: B12 deficiency (4) Aortic aneurysm Code(s): I71.9 - AORTIC ANEURYSM OF UNSPECIFIED SITE, WITHOUT RUPTURE (5) Atrial fibrillation Code(s): I48.91 - UNSPECIFIED ATRIAL FIBRILLATION Qualifiers: Atrial fibrillation type: chronic (6) CAD (coronary artery disease) Code(s): I25.10 - ATHSCL HEART DISEASE OF [place] CORONARY ARTERY W/O ANG PCTRS (7) History of aortic valve replacement with bioprosthetic valve Code(s): Z98.890 - OTHER SPECIFIED POSTPROCEDURAL STATES; Z95.3 - PRESENCE OF XENOGENIC HEART VALVE (8) Venous stasis Code(s): I87.8 - OTHER SPECIFIED DISORDERS OF VEINS Assessment/Plan LASIX IV PER IID BARROW TO DRAIN, DC TOMORROW PT EVAL OOB TO CHAIR COUMADIN 1.5MG M/W/F COUMADIN 2MG TUES/THURS/SAT/SUN GIVE 1.5MG DOSE TONIGHT CARDIO EVAL APPRECIATED
--- NOTE | 2019-05-14 11:21 | PN ---
Progress Note (short form) - Note Progress Note: s: breathing better. no chest pain, palps, dizziness Current Medications Albuterol/Ipratropium (Duoneb -) 1 amp NEB RQID [facility] Last Admin: 05/14/19 08:18 Dose: 1 amp Atenolol (Tenormin -) 25 mg PO BID [facility] Last Admin: 05/14/19 10:07 Dose: 25 mg Atorvastatin Calcium (Lipitor -) 20 mg PO HS [facility] Last Admin: 05/13/19 23:27 Dose: 20 mg Budesonide/Formoterol Fumarate (Symbicort 160/4.5mcg -) 2 puff IH BID [facility] Last Admin: 05/14/19 11:12 Dose: 2 puff Docusate Sodium (Colace -) 100 mg PO TID [facility] Last Admin: 05/14/19 05:50 Dose: 100 mg Furosemide (Lasix Injection -) 80 mg IVPB BID@0600,1400 [facility] Last Admin: 05/14/19 05:50 Dose: 80 mg Guaifenesin/Codeine Phosphate (Robitussin Ac -) 5 ml PO TID PRN PRN Reason: COUGH Last Admin: 05/14/19 10:33 Dose: 5 ml Hydralazine HCl (Apresoline -) 50 mg PO BID [facility] Last Admin: 05/14/19 10:06 Dose: 50 mg Ceftriaxone Sodium 1 gm/ (Dextrose) 50 mls @ 100 mls/hr IVPB DAILY [facility]; Protocol Last Admin: 05/14/19 10:06 Dose: 100 mls/hr Latanoprost (Xalatan 0.005% Eye Drops -) 1 drop OU HS [facility] Last Admin: 05/13/19 23:29 Dose: Not Given Losartan Potassium (Cozaar -) 50 mg PO BID [facility] Last Admin: 05/14/19 10:07 Dose: 50 mg Methylprednisolone Sodium Succinate (Solu-Medrol -) 40 mg IVPUSH Q6H-IV [facility] Last Admin: 05/14/19 10:06 Dose: 40 mg Potassium Chloride (K-Dur -) 20 meq PO HS [facility] Last Admin: 05/13/19 23:27 Dose: 20 meq Potassium Chloride (K-Dur -) 40 meq PO AM [facility] Last Admin: 05/14/19 06:04 Dose: 40 meq Terazosin HCl (Hytrin -) 2 mg PO HS [facility] Last Admin: 05/13/19 23:28 Dose: 2 mg Warfarin Sodium (Coumadin -) 1.5 mg PO DAILY@1800 [facility] Warfarin Sodium (Coumadin -) 2 mg PO 1800 [facility] Vital Signs Period Temp Pulse Resp BP Sys/Hernandez Pulse Ox Last 24 Hr 97.8 F-98.7 F 72-95 20-20 114-190/71-98 99-99 Constitutional: Yes: No Distress Cardiovascular: Yes: Pulse Irregular Respiratory: Yes: Other (bibasilar rales.) Gastrointestinal: Yes: Soft Edema: Yes Edema: LLE: 1+, RLE: 1+ Neurological: Yes: Alert, Oriented no jaundice, diaphoresis not agitated tele: af, rate controlled echo 04/2019 tds, grossly nl LV function, LA mildly dilated, mild MR, mild TR, s /p bio AVR, RVSP elevated 40-50 mmHg Assessment/Plan a/p: 88 m hx pafib (on coumadin), cad s/p inferior ID 1997, s/p cabg x3 1983 and 1997 , bio avr (1983 and 1997), hld, htn, tia, s/p right cea, pad with severe bl le dz s/p stenting and bypass, AAA, DM, ckd (1.3-1.7), obesity, dvt, hcv, p/w edema , sob cough lower ext edema, acute on chronic diastolic HF - cont IV lasix, monitor Cr, lytes, daily weights Pafib (on coumadin): - Rate controlled on BB. - AC with coumadin. Dosing per inr, goal 2-3 cad s/p inferior ID 1997, s/p cabg x3 1983 and 1997: -stable, no angina, nl lvef -cont medical management s/p bio avr - nl function on 08/2018 echo - stable on echo here - outpatient follow up hld: -cont statin htn: - appears improved. - hydralazine increased to 50 mg BID, cont other home meds pad, s/p cea, s/p le bypass/stenting: - Claudication is stable. Pt has been evaluated by several vascular surgeons in the past and his le dz is deemed non revascularizable. Recent carotid US shows stable disease, no new sxs. Continue current cardiac meds. AAA: - evaluated by vascular in past and they felt he is not a surgical candidate due to high risk - outpatient CT monitoring - Continue bb, statin.
--- NOTE | 2019-05-14 13:37 | EKG ---
Test Reason : Blood Pressure : / mmHG Vent. Rate : 088 BPM Atrial Rate : 089 BPM P-R Int : 000 ms QRS Dur : 146 ms QT Int : 424 ms P-R-T Axes : 000 -39 -03 degrees QTc Int : 513 ms ATRIAL FIBRILLATION LEFT AXIS DEVIATION RIGHT BUNDLE BRANCH BLOCK ABNORMAL ECG WHEN COMPARED WITH ECG OF 12-MAY-2019 11:18, ATRIAL FIBRILLATION HAS REPLACED ATRIAL FLUTTER Confirmed by MD YULISA, JULIANA ([id number]) on 05/14/2019 1:37:14 PM Referred By: MARVIN AYERS Confirmed By:JULIANA MÁRQUEZ MD
[2019-05-14 14:00] LABS: INR 3.22 (0.83-1.09); PROTHROMBIN TIME (PATIENT) 38.4 SEC (9.7-13.0)
[2019-05-14] MEDS: WARFARIN NA 2 MG TABLET (UD) PO SCH ×2 (14:12→17:03)
--- NOTE | 2019-05-14 14:50 | PN ---
Progress Note (short form) - Note Progress Note: RENAL Pt is awake and alert c/o sore throat breathing somewhat better Last Vital Signs Temp Pulse Resp BP Pulse Ox 98 F 78 20 148/72 98 05/14/19 10:00 05/14/19 10:00 05/14/19 10:00 05/14/19 10:00 05/14/19 10:00 no thrush noted lungs decreased breath sounds cvs s1s2 rr abd soft ext no edema, venous statsis changes neuro a+ox3 CBC, BMP 05/14/19 06:20 05/14/19 06:20 Current Medications Generic Name Dose Route Start Last Admin Trade Name Freq PRN Reason Stop Dose Admin Albuterol/Ipratropium 1 amp 05/12/19 16:00 05/14/19 11:43 Duoneb - NEB 1 amp RQID ARI Administration Atenolol 25 mg 05/12/19 22:00 05/14/19 10:07 Tenormin - PO 25 mg BID ARI Administration Atorvastatin Calcium 20 mg 05/12/19 22:00 05/13/19 23:27 Lipitor - PO 20 mg HS ARI Administration Budesonide/Formoterol Fumarate 2 puff 05/12/19 22:00 05/14/19 11:12 Symbicort 160/4.5mcg - IH 2 puff BID ARI Administration Docusate Sodium 100 mg 05/12/19 14:00 05/14/19 14:15 Colace - PO 100 mg TID ARI Administration Furosemide 80 mg 05/12/19 14:00 05/14/19 14:14 Lasix Injection - IVPB 80 mg BID@0600,1400 ARI Administration Guaifenesin/Codeine Phosphate 5 ml 05/14/19 10:19 05/14/19 10:33 Robitussin Ac - PO 5 ml TID PRN Administration COUGH Hydralazine HCl 50 mg 05/12/19 22:00 05/14/19 10:06 Apresoline - PO 50 mg BID ARI Administration Ceftriaxone Sodium 1 gm/ 50 mls @ 100 mls/hr 05/12/19 18:00 05/14/19 10:06 Dextrose IVPB 100 mls/hr DAILY ARI Administration Protocol Latanoprost 1 drop 05/12/19 22:00 05/13/19 23:29 Xalatan 0.005% Eye Drops - OU Not Given HS [facility] Losartan Potassium 50 mg 05/12/19 22:00 05/14/19 10:07 Cozaar - PO 50 mg BID ARI Administration Methylprednisolone Sodium Succinate 40 mg 05/12/19 15:00 05/14/19 14:15 Solu-Medrol - IVPUSH 40 mg Q6H-IV ARI Administration Potassium Chloride 20 meq 05/12/19 22:00 05/13/19 23:27 K-Dur - PO 20 meq HS ARI Administration Potassium Chloride 40 meq 05/13/19 07:00 05/14/19 06:04 K-Dur - PO 40 meq AM ARI Administration Terazosin HCl 2 mg 05/13/19 22:00 05/13/19 23:28 Hytrin - PO 2 mg HS ARI Administration Warfarin Sodium 1.5 mg 05/14/19 18:00 Coumadin - PO DAILY@1800 ARI Warfarin Sodium 2 mg 05/14/19 11:15 05/14/19 14:12 Coumadin - PO Not Given SuTuThSa@1800 [facility] 88 year old gentleman with history of CAD s/p CABG, CHF, COPD, Hypertension, HLD , DVT who presents from home with complaints of shortness of breath and cough. 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 CHF/Fluid overload 3. CAD 4. Hypertension 5. Acute on chronic anemia 6. 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
[2019-05-14] MEDS: WARFARIN NA 1 MG TABLET (FP) PO SCH (17:03)
[2019-05-14] MEDS: ATORVASTATIN CA 20 MG TABLET (FP) PO SCH (21:11)
[2019-05-14] MEDS: LATANOPROST 0.005% OPHTH SOLN 2.5ML BOTTLE OU SCH (23:26)
[2019-05-14] MEDS: TERAZOSIN HCL 1 MG CAPSULE PO SCH (23:28)
[2019-05-15] MEDS: methylPREDNISolone NA SUCC 40 MG/1 ML VIAL IVPUSH SCH ×4 (02:01→21:50)
[2019-05-15] MEDS: DOCUSATE SODIUM 100 MG CAPSULE (FP) PO SCH ×4 (05:53→21:50)
[2019-05-15] MEDS: FUROSEMIDE 100 MG/10 ML INJECTABLE VIAL IVPB SCH ×2 (05:53→15:05)
[2019-05-15] MEDS: POTASSIUM CHLORIDE TABS 20 MEQ TABLET.ER (FP) PO SCH ×2 (06:06→21:50)
[2019-05-15 06:34] LABS: INR 3.12 (0.83-1.09); PROTHROMBIN TIME (PATIENT) 37.3 SEC (9.7-13.0)
[2019-05-15] MEDS: ALBUTEROL SO4 2.5/IPRATROPIUM 0.5 INH SOL 3 ML VIAL.NEB. NEB SCH ×4 (08:11→20:20)
[2019-05-15] MEDS ORDERED: cefTRIAXone SODIUM 1 GM VIAL ONE (08:36)
[2019-05-15] MEDS ORDERED: DEXTROSE 5%-WATER - 50 ML IVPB ONE (08:37)
[2019-05-15] MEDS ORDERED: PT OWN MED DRAWER 7, Y5N ONE ×5 (09:04→21:06)
[2019-05-15] MEDS: CEFTRIAXONE 1 GM in DEXTROSE 5%-WATER - 50 ML IVPB SCH (09:36)
[2019-05-15] MEDS: hydrALAZINE HCL 25 MG TABLET (FP) PO SCH ×2 (09:36→21:49)
[2019-05-15] MEDS: ATENOLOL 25 MG TABLET (FP) PO SCH ×2 (09:36→21:49)
[2019-05-15] MEDS: LOSARTAN POTASSIUM 50 MG TABLET (FP) PO SCH ×2 (09:37→21:50)
[2019-05-15] MEDS: BUDESONIDE/FORMETEROL FUMARATE 160/4.5 mcg INHALER IH SCH ×2 (09:43→21:50)
--- NOTE | 2019-05-15 10:29 | PN ---
Progress Note, Physician Chief Complaint: AWAKE HAD NAUSEA AND VOMITED X 1 DENIES FEVER OR CHILLS NO ABD PAIN - Current Medication List Current Medications: Active Medications Albuterol/Ipratropium (Duoneb -) 1 amp NEB RQID [facility] Last Admin: 05/15/19 08:11 Dose: 1 amp Atenolol (Tenormin -) 25 mg PO BID [facility] Last Admin: 05/15/19 09:36 Dose: 25 mg Atorvastatin Calcium (Lipitor -) 20 mg PO HS [facility] Last Admin: 05/14/19 21:11 Dose: 20 mg Budesonide/Formoterol Fumarate (Symbicort 160/4.5mcg -) 2 puff IH BID [facility] Last Admin: 05/15/19 09:43 Dose: 2 puff Docusate Sodium (Colace -) 100 mg PO TID [facility] Last Admin: 05/15/19 06:01 Dose: 100 mg Furosemide (Lasix Injection -) 80 mg IVPB BID@0600,1400 [facility] Last Admin: 05/15/19 05:53 Dose: 80 mg Guaifenesin/Codeine Phosphate (Robitussin Ac -) 5 ml PO TID PRN PRN Reason: COUGH Last Admin: 05/14/19 17:59 Dose: 5 ml Hydralazine HCl (Apresoline -) 50 mg PO BID [facility] Last Admin: 05/15/19 09:36 Dose: 50 mg Ceftriaxone Sodium 1 gm/ (Dextrose) 50 mls @ 100 mls/hr IVPB DAILY [facility]; Protocol Last Admin: 05/15/19 09:36 Dose: 100 mls/hr Latanoprost (Xalatan 0.005% Eye Drops -) 1 drop OU HS [facility] Last Admin: 05/14/19 23:26 Dose: 1 drop Losartan Potassium (Cozaar -) 50 mg PO BID [facility] Last Admin: 05/15/19 09:37 Dose: 50 mg Methylprednisolone Sodium Succinate (Solu-Medrol -) 40 mg IVPUSH Q6H-IV [facility] Last Admin: 05/15/19 09:36 Dose: 40 mg Potassium Chloride (K-Dur -) 20 meq PO HS [facility] Last Admin: 05/14/19 21:10 Dose: 20 meq Potassium Chloride (K-Dur -) 40 meq PO AM [facility] Last Admin: 05/15/19 06:06 Dose: 40 meq Terazosin HCl (Hytrin -) 2 mg PO HS [facility] Last Admin: 05/14/19 23:28 Dose: 2 mg Warfarin Sodium (Coumadin -) 1.5 mg PO DAILY@1800 [facility] Last Admin: 05/14/19 17:03 Dose: Not Given Warfarin Sodium (Coumadin -) 2 mg PO SuTuThSa@1800 [facility] Last Admin: 05/14/19 17:03 Dose: Not Given - Objective Vital Signs: Vital Signs Temperature 98.4 F 05/15/19 02:00 Pulse Rate 70 05/15/19 06:00 Respiratory Rate 20 05/15/19 06:00 Blood Pressure 138/77 05/15/19 06:00 O2 Sat by Pulse Oximetry (%) 96 05/14/19 21:00 Constitutional: Yes: Mild Distress Cardiovascular: Yes: Pulse Irregular Respiratory: Yes: Diminished Gastrointestinal: Yes: Soft, Abdomen, Obese Genitourinary: Yes: [place] Present Musculoskeletal: Yes: Muscle Weakness Edema: Yes Integumentary: Yes: Bruising, Erythema, Venous Stasis Changes Wound/Incision: Yes: Open to air Neurological: Yes: Pre-Existing Deficit ...Motor Strength: LLE, RLE Labs: CBC, BMP 05/14/19 06:20 05/14/19 06:20 INR, PTT INR 3.12 (0.83-1.09) H 05/15/19 06:00 Problem List - Problems (1) Acute on chronic respiratory failure with hypoxia and hypercapnia Code(s): J96.21 - ACUTE AND CHRONIC RESPIRATORY FAILURE WITH HYPOXIA; J96.22 - ACUTE AND CHRONIC RESPIRATORY FAILURE WITH HYPERCAPNIA (2) Acute on chronic systolic CHF (congestive heart failure) Code(s): I50.23 - ACUTE ON CHRONIC SYSTOLIC (CONGESTIVE) HEART FAILURE (3) Anemia Code(s): D64.9 - ANEMIA, UNSPECIFIED Qualifiers: Anemia type: B12 deficiency (4) Aortic aneurysm Code(s): I71.9 - AORTIC ANEURYSM OF UNSPECIFIED SITE, WITHOUT RUPTURE (5) Atrial fibrillation Code(s): I48.91 - UNSPECIFIED ATRIAL FIBRILLATION Qualifiers: Atrial fibrillation type: chronic (6) CAD (coronary artery disease) Code(s): I25.10 - ATHSCL HEART DISEASE OF [place] CORONARY ARTERY W/O ANG PCTRS (7) History of aortic valve replacement with bioprosthetic valve Code(s): Z98.890 - OTHER SPECIFIED POSTPROCEDURAL STATES; Z95.3 - PRESENCE OF XENOGENIC HEART VALVE (8) Venous stasis Code(s): I87.8 - OTHER SPECIFIED DISORDERS OF VEINS Assessment/Plan ABD XRAY ORDERED R/O SBO/ILEUS IF VOMITING CONTINUES. LASIX IV PER IID BARROW TO DC PT EVAL OOB TO CHAIR COUMADIN 1.5MG M/W/F COUMADIN 2MG TUES/THURS/SAT/SUN GIVE 1.5MG DOSE TONIGHT CARDIO EVAL APPRECIATED
--- NOTE | 2019-05-15 10:48 | PN ---
Progress Note, Physician History of Present Illness: PULMONARY ALERT,OOB-CHAIR,LESS DYSPNEIC,+ VOMITING - Current Medication List Current Medications: Active Medications Albuterol/Ipratropium (Duoneb -) 1 amp NEB RQID [facility] Last Admin: 05/15/19 08:11 Dose: 1 amp Atenolol (Tenormin -) 25 mg PO BID [facility] Last Admin: 05/15/19 09:36 Dose: 25 mg Atorvastatin Calcium (Lipitor -) 20 mg PO HS [facility] Last Admin: 05/14/19 21:11 Dose: 20 mg Budesonide/Formoterol Fumarate (Symbicort 160/4.5mcg -) 2 puff IH BID [facility] Last Admin: 05/15/19 09:43 Dose: 2 puff Docusate Sodium (Colace -) 100 mg PO TID [facility] Last Admin: 05/15/19 06:01 Dose: 100 mg Furosemide (Lasix Injection -) 80 mg IVPB BID@0600,1400 [facility] Last Admin: 05/15/19 05:53 Dose: 80 mg Guaifenesin/Codeine Phosphate (Robitussin Ac -) 5 ml PO TID PRN PRN Reason: COUGH Last Admin: 05/14/19 17:59 Dose: 5 ml Hydralazine HCl (Apresoline -) 50 mg PO BID [facility] Last Admin: 05/15/19 09:36 Dose: 50 mg Ceftriaxone Sodium 1 gm/ (Dextrose) 50 mls @ 100 mls/hr IVPB DAILY [facility]; Protocol Last Admin: 05/15/19 09:36 Dose: 100 mls/hr Latanoprost (Xalatan 0.005% Eye Drops -) 1 drop OU HS [facility] Last Admin: 05/14/19 23:26 Dose: 1 drop Losartan Potassium (Cozaar -) 50 mg PO BID [facility] Last Admin: 05/15/19 09:37 Dose: 50 mg Methylprednisolone Sodium Succinate (Solu-Medrol -) 40 mg IVPUSH Q6H-IV [facility] Last Admin: 05/15/19 09:36 Dose: 40 mg Potassium Chloride (K-Dur -) 20 meq PO HS [facility] Last Admin: 05/14/19 21:10 Dose: 20 meq Potassium Chloride (K-Dur -) 40 meq PO AM [facility] Last Admin: 05/15/19 06:06 Dose: 40 meq Terazosin HCl (Hytrin -) 2 mg PO HS [facility] Last Admin: 05/14/19 23:28 Dose: 2 mg Warfarin Sodium (Coumadin -) 1.5 mg PO DAILY@1800 [facility] Last Admin: 05/14/19 17:03 Dose: Not Given Warfarin Sodium (Coumadin -) 2 mg PO SuTuThSa@1800 [facility] Last Admin: 05/14/19 17:03 Dose: Not Given - Objective Vital Signs: Vital Signs Temperature 98.4 F 05/15/19 02:00 Pulse Rate 70 05/15/19 06:00 Respiratory Rate 20 05/15/19 06:00 Blood Pressure 138/77 05/15/19 06:00 O2 Sat by Pulse Oximetry (%) 96 05/14/19 21:00 Constitutional: Yes: Well Nourished, Calm Eyes: Yes: WNL HENT: Yes: WNL Neck: Yes: WNL Cardiovascular: Yes: Pulse Irregular, S1, S2 Respiratory: Yes: Rales (ARMIDA RALES 1/3 UP), Rhonchi (FEW SCATTERED RHONCHI) Gastrointestinal: Yes: Normal Bowel Sounds, Soft Extremities: Yes: WNL Edema: Yes Labs: CBC, BMP 05/14/19 06:20 05/14/19 06:20 INR, PTT INR 3.12 (0.83-1.09) H 05/15/19 06:00 - ....Imaging Cat Scan: Report Reviewed, Image Reviewed Problem List - Problems (1) Acute on chronic systolic CHF (congestive heart failure) Code(s): I50.23 - ACUTE ON CHRONIC SYSTOLIC (CONGESTIVE) HEART FAILURE (2) Acute on chronic respiratory failure with hypoxemia Code(s): J96.21 - ACUTE AND CHRONIC RESPIRATORY FAILURE WITH HYPOXIA (3) Anemia Code(s): D64.9 - ANEMIA, UNSPECIFIED Qualifiers: Anemia type: B12 deficiency (4) Aortic aneurysm Code(s): I71.9 - AORTIC ANEURYSM OF UNSPECIFIED SITE, WITHOUT RUPTURE (5) Atrial fibrillation Code(s): I48.91 - UNSPECIFIED ATRIAL FIBRILLATION Qualifiers: Atrial fibrillation type: chronic (6) COPD (chronic obstructive pulmonary disease) Code(s): J44.9 - CHRONIC OBSTRUCTIVE PULMONARY DISEASE, UNSPECIFIED (7) Chronic renal insufficiency Code(s): N18.9 - CHRONIC KIDNEY DISEASE, UNSPECIFIED Qualifiers: Chronic kidney disease stage: unspecified stage Qualified Code(s): N18.9 - Chronic kidney disease, unspecified (8) History of aortic valve replacement with bioprosthetic valve Code(s): Z98.890 - OTHER SPECIFIED POSTPROCEDURAL STATES; Z95.3 - PRESENCE OF XENOGENIC HEART VALVE (9) PAD (peripheral artery disease) Code(s): I73.9 - PERIPHERAL VASCULAR DISEASE, UNSPECIFIED (10) Acute on chronic respiratory failure with hypoxia and hypercapnia Code(s): J96.21 - ACUTE AND CHRONIC RESPIRATORY FAILURE WITH HYPOXIA; J96.22 - ACUTE AND CHRONIC RESPIRATORY FAILURE WITH HYPERCAPNIA (11) Troponin I above reference range Code(s): R79.89 - OTHER SPECIFIED ABNORMAL FINDINGS OF BLOOD CHEMISTRY (12) Lactate blood increase Code(s): R79.89 - OTHER SPECIFIED ABNORMAL FINDINGS OF BLOOD CHEMISTRY Assessment/Plan IMP ACUTE ON CHRONIC HYPOXEMIC/HYPERCAPNEIC RESPIRATORY FAILURE ACUTE ON CHRONIC CHF COPD O2 DEPENDENT WITH EXACERBATION AFIB S/P AVR ASHD S/P CABG HTN HLD AAA NOT A SURGICAL CANDIDATE + TROPONIN ELEVATED LACTATE LEVEL ANEMIA PVE H/O CEA PLAN LASIX O2 INHALED BRONCHODILATORS MEDROL TAPER ABX RATE CONTROL AC DAILY WTS MONITOR LYTES,RENAL FUNCTION,H+H TREND LACTATE DR SINGH Problem List - Problems (1) Acute on chronic systolic CHF (congestive heart failure) Code(s): I50.23 - ACUTE ON CHRONIC SYSTOLIC (CONGESTIVE) HEART FAILURE (2) Acute on chronic respiratory failure with hypoxemia Code(s): J96.21 - ACUTE AND CHRONIC RESPIRATORY FAILURE WITH HYPOXIA (3) Anemia Code(s): D64.9 - ANEMIA, UNSPECIFIED Qualifiers: Anemia type: B12 deficiency (4) Aortic aneurysm Code(s): I71.9 - AORTIC ANEURYSM OF UNSPECIFIED SITE, WITHOUT RUPTURE (5) Atrial fibrillation Code(s): I48.91 - UNSPECIFIED ATRIAL FIBRILLATION Qualifiers: Atrial fibrillation type: chronic (6) COPD (chronic obstructive pulmonary disease) Code(s): J44.9 - CHRONIC OBSTRUCTIVE PULMONARY DISEASE, UNSPECIFIED (7) Chronic renal insufficiency Code(s): N18.9 - CHRONIC KIDNEY DISEASE, UNSPECIFIED Qualifiers: Chronic kidney disease stage: unspecified stage Qualified Code(s): N18.9 - Chronic kidney disease, unspecified (8) History of aortic valve replacement with bioprosthetic valve Code(s): Z98.890 - OTHER SPECIFIED POSTPROCEDURAL STATES; Z95.3 - PRESENCE OF XENOGENIC HEART VALVE (9) PAD (peripheral artery disease) Code(s): I73.9 - PERIPHERAL VASCULAR DISEASE, UNSPECIFIED (10) Acute on chronic respiratory failure with hypoxia and hypercapnia Code(s): J96.21 - ACUTE AND CHRONIC RESPIRATORY FAILURE WITH HYPOXIA; J96.22 - ACUTE AND CHRONIC RESPIRATORY FAILURE WITH HYPERCAPNIA (11) Troponin I above reference range Code(s): R79.89 - OTHER SPECIFIED ABNORMAL FINDINGS OF BLOOD CHEMISTRY (12) Lactate blood increase Code(s): R79.89 - OTHER SPECIFIED ABNORMAL FINDINGS OF BLOOD CHEMISTRY
[2019-05-15] MEDS ORDERED: ONDANSETRON 4 MG/2 ML VIAL IVPB PRN (10:56)
[2019-05-15] MEDS: guaiFENesin/CODEINE 5 ML UNIT-DOSE CUPS PO PRN ×2 (11:06→17:34)
--- NOTE | 2019-05-15 11:21 | PN ---
Progress Note (short form) - Note Progress Note: s: nauseated this morning, sob improving. no chest pain, palps, dizziness Current Medications Albuterol/Ipratropium (Duoneb -) 1 amp NEB RQID [facility] Last Admin: 05/15/19 08:11 Dose: 1 amp Atenolol (Tenormin -) 25 mg PO BID [facility] Last Admin: 05/15/19 09:36 Dose: 25 mg Atorvastatin Calcium (Lipitor -) 20 mg PO HS [facility] Last Admin: 05/14/19 21:11 Dose: 20 mg Budesonide/Formoterol Fumarate (Symbicort 160/4.5mcg -) 2 puff IH BID [facility] Last Admin: 05/15/19 09:43 Dose: 2 puff Docusate Sodium (Colace -) 100 mg PO TID [facility] Last Admin: 05/15/19 06:01 Dose: 100 mg Furosemide (Lasix Injection -) 80 mg IVPB BID@0600,1400 [facility] Last Admin: 05/15/19 05:53 Dose: 80 mg Guaifenesin/Codeine Phosphate (Robitussin Ac -) 5 ml PO TID PRN PRN Reason: COUGH Last Admin: 05/15/19 11:06 Dose: 5 ml Hydralazine HCl (Apresoline -) 50 mg PO BID [facility] Last Admin: 05/15/19 09:36 Dose: 50 mg Ceftriaxone Sodium 1 gm/ (Dextrose) 50 mls @ 100 mls/hr IVPB DAILY [facility]; Protocol Last Admin: 05/15/19 09:36 Dose: 100 mls/hr Latanoprost (Xalatan 0.005% Eye Drops -) 1 drop OU HS [facility] Last Admin: 05/14/19 23:26 Dose: 1 drop Losartan Potassium (Cozaar -) 50 mg PO BID [facility] Last Admin: 05/15/19 09:37 Dose: 50 mg Methylprednisolone Sodium Succinate (Solu-Medrol -) 40 mg IVPUSH BID [facility] Last Admin: 05/15/19 10:52 Dose: Not Given Ondansetron HCl (Zofran Injection) 4 mg IVPB Q6H PRN PRN Reason: NAUSEA Potassium Chloride (K-Dur -) 20 meq PO HS [facility] Last Admin: 05/14/19 21:10 Dose: 20 meq Potassium Chloride (K-Dur -) 40 meq PO AM [facility] Last Admin: 12/29/19 06:06 Dose: 40 meq Terazosin HCl (Hytrin -) 2 mg PO HS [facility] Last Admin: 05/14/19 23:28 Dose: 2 mg Warfarin Sodium (Coumadin -) 1.5 mg PO DAILY@1800 [facility] Last Admin: 05/14/19 17:03 Dose: Not Given Warfarin Sodium (Coumadin -) 2 mg PO SuTuThSa@1800 [facility] Last Admin: 05/14/19 17:03 Dose: Not Given Vital Signs Period Temp Pulse Resp BP Sys/Hernandez Pulse Ox Last 24 Hr 98 F-98.4 F 70-85 20-24 138-157/70-87 96 Constitutional: Yes: No Distress Cardiovascular: Yes: Pulse Irregular Respiratory: Yes: Other (bibasilar rales, diffuse exp wheezes) Gastrointestinal: Yes: Soft Edema: Yes Edema: LLE: 1+, RLE: 1+ Neurological: Yes: Alert, Oriented no jaundice, diaphoresis not agitated tele: af, rate controlled echo 04/2019 tds, grossly nl LV function, LA mildly dilated, mild MR, mild TR, s /p bio AVR, RVSP elevated 40-50 mmHg Assessment/Plan a/p: 88 m hx pafib (on coumadin), cad s/p inferior [place] 1997, s/p cabg x3 1983 and 1997 , bio avr (1983 and 1997), hld, htn, tia, s/p right cea, pad with severe bl le dz s/p stenting and bypass, AAA, DM, ckd (1.3-1.7), obesity, dvt, hcv, p/w edema , sob cough lower ext edema, acute on chronic diastolic HF - cont IV lasix, monitor Cr, lytes, daily weights Pafib (on coumadin): - Rate controlled on BB. - AC with coumadin. Dosing per inr, goal 2-3 cad s/p inferior [place] 1997, s/p cabg x3 1983 and 1997: -stable, no angina, nl lvef -cont medical management s/p bio avr - nl function on 08/2018 echo - stable on echo here - outpatient follow up hld: -cont statin htn: - appears improved. - hydralazine increased to 50 mg BID, cont other home meds pad, s/p cea, s/p le bypass/stenting: - Claudication is stable. Pt has been evaluated by several vascular surgeons in the past and his le dz is deemed non revascularizable. Recent carotid US shows stable disease, no new sxs. Continue current cardiac meds. AAA: - evaluated by vascular in past and they felt he is not a surgical candidate due to high risk - outpatient CT monitoring - Continue bb, statin.
[2019-05-15] MEDS ORDERED: IRON SUCROSE INJECTION 300 MG in SODIUM CHLORIDE 250 ML IVPB ONE (13:27)
[2019-05-15 13:54] VITALS: BMI 30.7
--- NOTE | 2019-05-15 16:31 | PN ---
Progress Note (short form) - Note Progress Note: RENAL Pt is awake and alert feels better today says he did vomit however earlier and thinks it may have been an egg Last Vital Signs Temp Pulse Resp BP Pulse Ox 97.9 F 79 20 152/82 96 05/15/19 14:00 05/15/19 14:00 05/15/19 14:00 05/15/19 14:00 05/15/19 10:00 no thrush noted lungs decreased breath sounds cvs s1s2 rr abd soft ext no edema, venous statsis changes neuro a+ox3 CBC, BMP 05/14/19 06:20 05/14/19 06:20 Current Medications Generic Name Dose Route Start Last Admin Trade Name Freq PRN Reason Stop Dose Admin Albuterol/Ipratropium 1 amp 05/12/19 16:00 05/15/19 16:24 Duoneb - NEB 1 amp RQID ARI Administration Atenolol 25 mg 05/12/19 22:00 05/15/19 09:36 Tenormin - PO 25 mg BID ARI Administration Atorvastatin Calcium 20 mg 05/12/19 22:00 05/14/19 21:11 Lipitor - PO 20 mg HS ARI Administration Budesonide/Formoterol Fumarate 2 puff 05/12/19 22:00 05/15/19 09:43 Symbicort 160/4.5mcg - IH 2 puff BID ARI Administration Docusate Sodium 100 mg 05/12/19 14:00 05/15/19 15:05 Colace - PO 100 mg TID ARI Administration Furosemide 80 mg 05/12/19 14:00 05/15/19 15:05 Lasix Injection - IVPB 80 mg BID@0600,1400 [facility] Administration Guaifenesin/Codeine Phosphate 5 ml 05/14/19 10:19 05/15/19 11:06 Robitussin Ac - PO 5 ml TID PRN Administration COUGH Hydralazine HCl 50 mg 05/12/19 22:00 05/15/19 09:36 Apresoline - PO 50 mg BID [facility] Administration Ceftriaxone Sodium 1 gm/ 50 mls @ 100 mls/hr 05/12/19 18:00 05/15/19 09:36 Dextrose IVPB 100 mls/hr DAILY [facility] Administration Protocol Latanoprost 1 drop 05/12/19 22:00 05/14/19 23:26 Xalatan 0.005% Eye Drops - OU 1 drop HS [facility] Administration Losartan Potassium 50 mg 05/12/19 22:00 05/15/19 09:37 Cozaar - PO 50 mg BID ARI Administration Methylprednisolone Sodium Succinate 40 mg 05/15/19 11:00 05/15/19 10:52 Solu-Medrol - IVPUSH Not Given BID [facility] Ondansetron HCl 4 mg 05/15/19 10:56 05/15/19 11:39 Zofran Injection IVPB 4 mg Q6H PRN Administration NAUSEA Potassium Chloride 20 meq 05/12/19 22:00 05/14/19 21:10 K-Dur - PO 20 meq HS ARI Administration Potassium Chloride 40 meq 05/13/19 07:00 05/15/19 06:06 K-Dur - PO 40 meq AM ARI Administration Terazosin HCl 2 mg 05/13/19 22:00 05/14/19 23:28 Hytrin - PO 2 mg HS ARI Administration Warfarin Sodium 1.5 mg 05/14/19 18:00 05/14/19 17:03 Coumadin - PO Not Given DAILY@1800 [facility] Warfarin Sodium 2 mg 05/14/19 11:15 05/14/19 17:03 Coumadin - PO Not Given SuTuThSa@1800 [facility] 88 year old gentleman with history of CAD s/p CABG, CHF, COPD, Hypertension, HLD , DVT who presents from home with complaints of shortness of breath and cough. 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 CHF/Fluid overload 3. CAD 4. Hypertension 5. Acute on chronic anemia 6. 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 nausea and vomiting could have been from codeine in cough syrup repeat labs and observe cautious diuresis avoid nephrotoxins if vomits again dc codeine MV
[2019-05-15] MEDS: WARFARIN NA 2 MG TABLET (UD) PO SCH (17:04)
[2019-05-15] MEDS: WARFARIN NA 1 MG TABLET (FP) PO SCH (17:05)
[2019-05-15] MEDS: ATORVASTATIN CA 20 MG TABLET (FP) PO SCH (21:49)
[2019-05-15] MEDS: LATANOPROST 0.005% OPHTH SOLN 2.5ML BOTTLE OU SCH (21:50)
[2019-05-15] MEDS: TERAZOSIN HCL 1 MG CAPSULE PO SCH (21:51)
[2019-05-16 05:34] VITALS: PULSE 72; TEMP 98
[2019-05-16] MEDS: DOCUSATE SODIUM 100 MG CAPSULE (FP) PO SCH (06:21)
[2019-05-16] MEDS: POTASSIUM CHLORIDE TABS 20 MEQ TABLET.ER (FP) PO SCH (06:22)
[2019-05-16] MEDS: FUROSEMIDE 100 MG/10 ML INJECTABLE VIAL IVPB SCH (06:22)
[2019-05-16 07:00] LABS: HEMATOCRIT 29.5 % (35.4-49); HEMOGLOBIN 9.4 GM/dL (11.7-16.9); MCH 28.1 pg (25.7-33.7); MCHC 31.8 g/dl (32.0-35.9); MEAN CELL VOLUME 88.2 fl (80-96); MEAN PLT VOLUME 8.3 fl (7.5-11.1); PLATELET COUNT 110 K/MM3 (134-434); RBC 3.34 M/mm3 (4.00-5.60); RDW 19.8 % (11.9-15.9); WHITE BLOOD COUNT 4.8 K/mm3 (4.0-10.0)
[2019-05-16] MEDS: ALBUTEROL SO4 2.5/IPRATROPIUM 0.5 INH SOL 3 ML VIAL.NEB. NEB SCH (08:07)
--- NOTE | 2019-05-16 08:13 | DS ---
Physical Examination Vital Signs: Vital Signs Temperature 98.0 F 05/16/19 05:33 Pulse Rate 72 05/16/19 05:33 Respiratory Rate 20 05/16/19 05:33 Blood Pressure 147/71 05/16/19 05:33 O2 Sat by Pulse Oximetry (%) 97 05/16/19 00:06 Findings/Remarks: AWAKE ALERT FEELS GREAT Constitutional: Yes: Mild Distress Cardiovascular: Yes: Pulse Irregular Respiratory: Yes: On Nasal O2 Gastrointestinal: Yes: Soft, Abdomen, Obese Renal/: Yes: WNL Musculoskeletal: Yes: Muscle Weakness Edema: Yes Edema: LLE: Trace, RLE: Trace Integumentary: Yes: Erythema Labs: CBC, BMP 05/16/19 06:35 Discharge Summary Problems reviewed: Yes Reason For Visit: ACUTE ON CHRONIC SYSTOLIC CONGESTIVE HEART FAILURE Current Active Problems Acute on chronic respiratory failure with hypoxia and hypercapnia (Acute) Acute on chronic systolic CHF (congestive heart failure) (Acute) Lactate blood increase (Acute) Troponin I above reference range (Acute) Procedures: Principal: CT SCAN/XRAYS Hospital Course: ADMITTED FOR ACUTE CHF/COPD AND CHRONIC DISEASE, AFIB, CABG,CAD, ANEURYSM DIURESED WITH IV LASIX, IV STEROIDS GIVEN FOR RESP DISCOMFORT IMPROVED AND ON HOME 02 THERAPY. WILL SEND HOME VISITING SERVICE AND WILL NEED STRICT COMPLIANCE AT HOME WITH LOW SALT DIET. Plan of Treatment: CHF PROTOCOL AT HOME DAILY WEIGHTS LOW SALT DIET 1 LITER FLUID RESTRICTIONS Condition: Improved - Instructions Diet, Activity, Other Instructions: LOW SODIUM DIET DAILY WEIGHT 180LBS IS COMFORT ZONE FOR HEART FAILURE MONITORING IF YOUR WEIGHT INCREASES TAKE 1 EXTRA FUROSEMIDE PILL AND CALL DR [facility] Referrals: Linh Ayers MD [Primary Care Provider] - Disposition: VNS/HOME HEALTH CARE - Home Medications Comprehensive Discharge Medication List: Ambulatory Orders Ascorbic Acid [Vitamin C] 500 mg PO DAILY 06/16/17 Atenolol [Tenormin -] 25 mg PO BID 06/16/17 Atorvastatin Ca [Lipitor] 20 mg PO HS 06/16/17 Bifidobacterium Infantis [Align] 10.5 mg PO DAILY 06/16/17 Budesonide/Formeterol Fumarate [SYMBICORT 160/4.5mcg -] 1 inh PO BID 06/16/17 Cholecalciferol (Vitamin D3) [Vitamin D3] 2,000 unit PO DAILY 06/16/17 Cyanocobalamin [Vitamin B12 -] 100 mcg PO DAILY 06/16/17 Docusate Sodium [Colace] 100 mg PO TID 06/16/17 Terazosin HCl 2 mg PO HS 06/16/17 Warfarin Sodium [Coumadin] 2 mg PO HS 06/16/17 hydrALAZINE HCL [Apresoline -] 25 mg PO BID #60 tablet 06/25/17 Lactobacillus Acidophilus [Bacid -] 1 tab PO DAILY tab 08/31/18 Tiotropium Somers [Spiriva Respimat] 2 puff IH DAILY #1 inhaler 08/31/18 Losartan Potassium 50 mg PO BID #30 tablet 04/29/19 Bumetanide 2 mg PO BID 05/12/19 Febuxostat 40 mg PO HS 05/12/19 Latanoprost 0.005% Eye Drops [Xalatan 0.005% Eye Drops -] 1 drop OU HS 05/12/19 Potassium Chloride [K-Dur -] 40 meq PO AM 05/12/19 Albuterol 2.5/Ipratropium 0.5 [Duoneb -] 1 amp NEB RQID #120 amp 05/16/19 Furosemide [Lasix] 40 mg PO DAILY #30 tablet 05/16/19 predniSONE [Deltasone -] See Taper PO DAILY #30 tablet 05/16/19
[2019-05-16 08:14] LABS: BLOOD UREA NITROGEN 69.6 mg/dL (7-18); CALCIUM 8.7 mg/dL (8.5-10.1); CREATININE 2.1 mg/dL (0.55-1.3); POTASSIUM 4.7 mmol/L (3.5-5.1)
[2019-05-16 08:33] VITALS: BP 149/74
[2019-05-16] MEDS ORDERED: cefTRIAXone SODIUM 1 GM VIAL ONE (09:46)
[2019-05-16] MEDS ORDERED: DEXTROSE 5%-WATER - 50 ML IVPB ONE (09:46)
[2019-05-16] MEDS: ATENOLOL 25 MG TABLET (FP) PO SCH (09:47)
[2019-05-16] MEDS: hydrALAZINE HCL 25 MG TABLET (FP) PO SCH (09:47)
[2019-05-16] MEDS: methylPREDNISolone NA SUCC 40 MG/1 ML VIAL IVPUSH SCH (09:48)
[2019-05-16] MEDS: LOSARTAN POTASSIUM 50 MG TABLET (FP) PO SCH (09:48)
[2019-05-16] MEDS: BUDESONIDE/FORMETEROL FUMARATE 160/4.5 mcg INHALER IH SCH (09:48)
[2019-05-16] MEDS: CEFTRIAXONE 1 GM in DEXTROSE 5%-WATER - 50 ML IVPB SCH (09:48)
[2019-05-16 10:45] LABS: INR 1.19 (0.83-1.09); PROTHROMBIN TIME (PATIENT) 14.1 SEC (9.7-13.0)
== END 2019-05-16 11:30 | disposition home health service (06) | DRG 291 ==
LOC: JER 10:23 → JERBED 12:36 → J4W 15:38
PROVIDERS: ADMIT Family Medicine; ATTEND Family Medicine
DX: I13.0 Hypertensive heart and chronic kidney disease with heart failure and stage 1 through stage 4 chronic kidney disease, or unspecified chronic kidney disease (principal); I50.23 Acute on chronic systolic (congestive) heart failure; J96.21 Acute and chronic respiratory failure with hypoxia; J96.22 Acute and chronic respiratory failure with hypercapnia; N18.4 Chronic kidney disease, stage 4 (severe); E11.22 Type 2 diabetes mellitus with diabetic chronic kidney disease; J44.9 Chronic obstructive pulmonary disease, unspecified; E78.5 Hyperlipidemia, unspecified; D64.9 Anemia, unspecified; I25.2 Old myocardial infarction; I48.0 Paroxysmal atrial fibrillation; I25.10 Atherosclerotic heart disease of native coronary artery without angina pectoris; I71.4 Abdominal aortic aneurysm, without rupture; E66.9 Obesity, unspecified; R11.2 Nausea with vomiting, unspecified; N40.0 Benign prostatic hyperplasia without lower urinary tract symptoms; R79.89 Other specified abnormal findings of blood chemistry; I87.8 Other specified disorders of veins; E53.8 Deficiency of other specified B group vitamins; Z86.718 Personal history of other venous thrombosis and embolism; Z86.73 Personal history of transient ischemic attack (TIA), and cerebral infarction without residual deficits; Z95.1 Presence of aortocoronary bypass graft; Z95.2 Presence of prosthetic heart valve; Z88.0 Allergy status to penicillin; Z99.81 Dependence on supplemental oxygen; Z68.31 Body mass index [BMI] 31.0-31.9, adult
CPT/HCPCS: 36415; 36600; 71045-TC-FY; 71250-TC; 74018-TC-FY; 80048; 80053; 81003; 82550; 82553; 82565; 82728; 82803; 83540; 83550; 83605; 83735; 83880; 84100; 84443; 84484; 84540; 85025; 85027; 85610; 87040; 87070; 87086; 87205; 87804; 87899; 93005; 93010; 93306-TC; 94640; 94660; 99285-25; J1756

== ENCOUNTER 2019-11-18 13:46 | Inpatient (IN) | payer OTHER, MEDICARE ==
--- NOTE | 2019-11-18 13:52 | PDOC ---
Rapid Medical Evaluation Time Seen by Provider: 11/18/19 13:48 Medical Evaluation: Allergies Allergy/AdvReac Type Severity Reaction Status Date / Time black pepper Allergy Verified 05/12/19 10:37 Penicillins Allergy Rash Verified 05/12/19 10:37 RED PEPPER Allergy Uncoded 05/12/19 10:37 11/18/19 13:49 I performed a brief in-person evaluation of this patient. Pt is an 89 y/o male with complaint of b/l LE pain and worsening swelling. He states he was in the ED a few days ago with /similar symptoms and was diagnosed with cellulitis. He will be seeing wound care on Monday 11/20. The patient has history of CAD with 3 "open heart surgeries". He is unsure if he has CHF. It took him 1.5 hours to get in the car to be able to come to the ED. Pertinent physical exam findings: Exertional dyspnea appreciated with O2 saturation of 94% in triage. 3+ pitting edema with weeping to the b/l LE. Speaking in short sentences. I have ordered the following: labs including bnp and cardiac panel Patient to proceed to ED for further evaluation. Discharge Disposition - Diagnosis Bilateral lower extremity edema - Referrals - Patient Instructions - Post Discharge Activity
[2019-11-18 14:40] LABS: BASO % 0.5 % (0-2.0); EOS % 1.5 % (0-4.5); HEMATOCRIT 25.7 % (35.4-49); HEMOGLOBIN 8.3 GM/dL (11.7-16.9); LYMPH % 5.7 % (8-40); MCH 27.9 pg (25.7-33.7); MCHC 32.3 g/dl (32.0-35.9); MEAN CELL VOLUME 86.5 fl (80-96); MEAN PLT VOLUME 8.3 fl (7.5-11.1); MONO % 13.5 % (3.8-10.2); NEUT % 78.8 % (42.8-82.8); PLATELET COUNT 64 K/MM3 (134-434); RBC 2.97 M/mm3 (4.00-5.60); RDW 18.2 % (11.9-15.9); WHITE BLOOD COUNT 5.6 K/mm3 (4.0-10.0)
[2019-11-18 14:47] LABS: INR 1.8 (0.83-1.09); PROTHROMBIN TIME (PATIENT) 21.4 SEC (9.7-13.0)
[2019-11-18 14:50] LABS: ACTIVATED PTT 30.9 SECONDS (25.2-36.5)
[2019-11-18] MEDS ORDERED: morphine CARPU-JECT 2 MG/1 ML DISP.SYRIN IVPUSH ONE ×2 (15:06→16:11)
[2019-11-18] MEDS ORDERED: morphine SULFATE 4 MG/ML VIAL ONE ×2 (15:10→16:20)
[2019-11-18 15:18] LABS: BILIRUBIN,TOTAL 0.6 mg/dL (0.2-1); BLOOD UREA NITROGEN 63.1 mg/dL (7-18); CALCIUM 8.5 mg/dL (8.5-10.1); CREATININE 2.5 mg/dL (0.55-1.3); MAGNESIUM 1.9 mg/dL (1.8-2.4); N-TERMINAL BNP 15689.9 pg/ml (5-450); POTASSIUM 4.1 mmol/L (3.5-5.1); TOT PROT 7.1 g/dl (6.4-8.2)
--- NOTE | 2019-11-18 15:39 | PDOC ---
*Physical Exam - Vital Signs Last Vital Signs Temp Pulse Resp BP Pulse Ox 99 F 59 L 24 H 161/94 95 11/18/19 13:50 11/18/19 13:50 11/18/19 13:50 11/18/19 13:50 11/18/19 14:00 - Physical Exam 11/18/19 15:38 Discussed case with covering physician for Dr. Rosas, will come see pt prior to abx recs. Plan for admission ED Treatment Course - LABORATORY CBC & Chemistry Diagram: 11/24/19 07:40 11/24/19 07:40 - ADDITIONAL ORDERS Additional order review: Laboratory Results 11/18/19 11/18/19 14:10 14:10 PT with INR 21.40 H INR 1.80 H PTT (Actin FS) 30.9 Sodium 138 Potassium 4.1 Chloride 103 Carbon Dioxide 30 Anion Gap 6 L BUN 63.1 H Creatinine 2.5 H Est GFR (CKD-EPI)AfAm 25.43 Est GFR (CKD-EPI)NonAf 21.94 Random Glucose 122 H Calcium 8.5 Magnesium 1.9 Total Bilirubin 0.6 AST 31 ALT 34 Alkaline Phosphatase 90 Creatine Kinase 46 Troponin I 0.04 B-Natriuretic Peptide 56276.9 H Total Protein 7.1 Albumin 3.0 L 11/18/19 14:10 RBC 2.97 L MCV 86.5 MCHC 32.3 RDW 18.2 H MPV 8.3 Neutrophils % 78.8 Lymphocytes % 5.7 L Monocytes % 13.5 H Eosinophils % 1.5 Basophils % 0.5 - Medications Given in the ED: ED Medications Discontinued Medications Generic Name Dose Route Start Last Admin Trade Name Suzanne PRN Reason Stop Dose Admin Morphine Sulfate 4 mg 11/18/19 15:06 11/18/19 15:12 Morphine Injection - IVPUSH 11/18/19 15:07 4 mg ONCE ONE Administration Discharge - Discharge Information Problems reviewed: Yes Clinical Impression/Diagnosis: Bilateral lower extremity edema, Cellulitis Condition: Stable Disposition: ALF FACILITY - Follow up/Referral - Patient Discharge Instructions - Post Discharge Activity
--- NOTE | 2019-11-18 16:02 | PDOC ---
History of Present Illness - General Chief Complaint: Pain, Acute Stated Complaint: LEG PAIN Time Seen by Provider: 11/18/19 13:48 - History of Present Illness Initial Comments: 11/18/19 16:01 HPI: 89 y/o M, pmh of COPD (on O2 3L daily), HLD, osteomyelitis, PAD/PVD, DVT, CHF, HTN, TIA, anemia, CABG, MVR x3, claudication s/p stenting of the LE and diabetes presenting with BL LE pain. Patient reports chronic lower extremity pain and wounds with recurrent cellulitis however, last night his pain acutely worsened in BL LE , R>L. He also reports increased weeping drainage from both legs and edema. Denies fever, chills, chest pain, SOB, abd pain, dysuria. PMHx: as noted above ROS: as noted SHx: Denies tobacco use; no alcohol use; no rec drugs Allergies: see chart ROS: GENERAL/CONSTITUTIONAL: No fever or chills. No weakness. HEAD, EYES, EARS, NOSE AND THROAT: No change in vision. No ear pain or discharge. No sore throat. CARDIOVASCULAR: No chest pain or shortness of breath RESPIRATORY: No cough, wheezing, or hemoptysis. GASTROINTESTINAL: No nausea, vomiting, diarrhea or constipation. GENITOURINARY: No dysuria, frequency, or change in urination. MUSCULOSKELETAL: No joint or muscle swelling or pain. No neck or back pain. SKIN: +LE rash NEUROLOGIC: No headache, vertigo, loss of consciousness, or change in strength /sensation. ENDOCRINE: No increased thirst. No abnormal weight change HEMATOLOGIC/LYMPHATIC: No anemia, easy bleeding, or history of blood clots. ALLERGIC/IMMUNOLOGIC: No hives or skin allergy. PE: GENERAL: Awake, alert, and fully oriented, no acute distress HEAD: No signs of trauma, normocephalic, atraumatic EYES: EOMI, sclera anicteric, conjunctiva clear ENT: Auricles normal inspection, hearing grossly normal, nares patent, oropharynx clear without exudates. Moist mucosa NECK: Normal ROM, no lymphadenopathy LUNGS: No increased work of breathing, symmetrical chest rise HEART: Regular rate, regular rhythm ABDOMEN: Soft, nondistended, nontender, ventral hernia. No guarding, no rebound. No masses. No CVAT MUSCULOSKELETAL: FROM NEUROLOGICAL: Cranial nerves II through XII grossly intact. Normal speech, normal gait, no focal sensorimotor deficits SKIN: BL LE anterior caba with erythematous changes and 2+ pitting edema with ttp, 2+ pulses Past History - Medical History Allergies/Adverse Reactions: Allergies Allergy/AdvReac Type Severity Reaction Status Date / Time black pepper Allergy Verified 11/18/19 13:52 Penicillins Allergy Rash Verified 11/18/19 13:52 RED PEPPER Allergy Uncoded 11/18/19 13:52 Home Medications: Ambulatory Orders Ascorbic Acid [Vitamin C] 500 mg PO DAILY 06/16/17 Atenolol [Tenormin -] 25 mg PO BID 06/16/17 Atorvastatin Ca [Lipitor] 20 mg PO HS 06/16/17 Bifidobacterium Infantis [Align] 10.5 mg PO DAILY 06/16/17 Budesonide/Formeterol Fumarate [SYMBICORT 160/4.5mcg -] 1 inh PO BID 06/16/17 Cholecalciferol (Vitamin D3) [Vitamin D3] 2,000 unit PO DAILY 06/16/17 Cyanocobalamin [Vitamin B12 -] 100 mcg PO DAILY 06/16/17 Docusate Sodium [Colace] 100 mg PO TID 06/16/17 Terazosin HCl 2 mg PO HS 06/16/17 Warfarin Sodium [Coumadin] 2 mg PO HS 06/16/17 hydrALAZINE HCL [Apresoline -] 25 mg PO BID #60 tablet 06/25/17 Lactobacillus Acidophilus [Bacid -] 1 tab PO DAILY tab 08/31/18 Tiotropium [place] [Spiriva Respimat] 2 puff IH DAILY #1 inhaler 08/31/18 Losartan Potassium 50 mg PO BID #30 tablet 04/29/19 Bumetanide 2 mg PO BID 05/12/19 Febuxostat 40 mg PO HS 05/12/19 Latanoprost 0.005% Eye Drops [Xalatan 0.005% Eye Drops -] 1 drop OU HS 05/12/19 Potassium Chloride [K-Dur -] 40 meq PO AM 05/12/19 Albuterol 2.5/Ipratropium 0.5 [Duoneb -] 1 amp NEB RQID #120 amp 05/16/19 Bacitracin - [Bacitracin Topical Ointment -] 1 applic TP BID #1 tube 11/01/19 Latanoprost 0.005% Eye Drops [Xalatan 0.005% Eye Drops -] 1 drop OU HS drops 11/01/19 Linezolid [Zyvox] 600 mg PO BID #14 tablet 11/01/19 Pantoprazole Sodium [Protonix -] 40 mg PO DAILY #30 tablet.ec 11/01/19 Anemia: Yes Asthma: No Cancer: No Cardiac Disorders: Yes (CABG, valve replacement) CVA: Yes () COPD: No CHF: Yes DVT: Yes Dementia: No Diabetes: Yes (borderline diabetic) GI Disorders: No Disorders: Yes (see's dr arias for kidneys, creatine elevated.) HTN: Yes Hypercholesterolemia: Yes Liver Disease: No Seizures: No Thyroid Disease: No - Surgical History Abdominal Surgery: No Appendectomy: No Cardiac Surgery: Yes (CABG, 1997 AORTIV VALVE REPLACED,TRIPLE BYPASS IN ) Cholecystectomy: No Lung Surgery: No Neurologic Surgery: No Orthopedic Surgery: No - Immunization History Td Vaccination: Yes Immunization Up to Date: Yes - Psycho-Social/Smoking History Smoking Status: Yes (40 YRS QUIT) Smoking History: Former smoker Have you smoked in the past 12 months: No Number of Cigarettes Smoked Daily: 0 If you are a former smoker, when did you quit?: 1966 Information on smoking cessation initiated: No 'Breaking Loose' booklet given: 10/10/12 - Substance Abuse Hx (Audit-C & DAST Scrn) How often the patient has a drink containing alcohol: Never Score: In Men: 4 or > Positive; In Women: 3 or > Positive: 0 Screen Result (Pos requires Nsg. Audit-10AR): Negative In the last yr the pt used illegal drug/Rx for NonMed reason: No Score: Yes response is considered Positive: 0 Screen Result (Positive result requires Nsg. DAST-10): Negative *Physical Exam - Vital Signs Last Vital Signs Temp Pulse Resp BP Pulse Ox 99 F 59 L 24 H 161/94 95 11/18/19 13:50 11/18/19 13:50 11/18/19 13:50 11/18/19 13:50 11/18/19 14:00 ED Treatment Course - LABORATORY CBC & Chemistry Diagram: 11/18/19 14:10 11/18/19 14:10 - ADDITIONAL ORDERS Additional order review: Laboratory Results 11/18/19 11/18/19 14:10 14:10 PT with INR 21.40 H INR 1.80 H PTT (Actin FS) 30.9 Sodium 138 Potassium 4.1 Chloride 103 Carbon Dioxide 30 Anion Gap 6 L BUN 63.1 H Creatinine 2.5 H Est GFR (CKD-EPI)AfAm 25.43 Est GFR (CKD-EPI)NonAf 21.94 Random Glucose 122 H Calcium 8.5 Magnesium 1.9 Total Bilirubin 0.6 AST 31 ALT 34 Alkaline Phosphatase 90 Creatine Kinase 46 Troponin I 0.04 B-Natriuretic Peptide 73877.9 H Total Protein 7.1 Albumin 3.0 L 11/18/19 14:10 RBC 2.97 L MCV 86.5 MCHC 32.3 RDW 18.2 H MPV 8.3 Neutrophils % 78.8 Lymphocytes % 5.7 L Monocytes % 13.5 H Eosinophils % 1.5 Basophils % 0.5 - Medications Given in the ED: ED Medications Discontinued Medications Generic Name Dose Route Start Last Admin Trade Name Freq PRN Reason Stop Dose Admin Morphine Sulfate 4 mg 11/18/19 15:06 11/18/19 15:12 Morphine Injection - IVPUSH 11/18/19 15:07 4 mg ONCE ONE Administration Medical Decision Making - Medical Decision Making 11/18/19 20:13 89 y/o M, pmh of COPD (on O2 3L daily), HLD, osteomyelitis, PAD/PVD, DVT, CHF, HTN, TIA, anemia, CABG, MVR x3, claudication s/p stenting of the LE and diabetes presenting with BL LE pain with overlying erythema and serous drainage. VSS, AF. Pe with BL LE pitting edema and erythema, wounds with drainage. -cbc, cmp, coags, ekg 11/18/19 20:14 chronic wounds have required emro and linezolid in past consulted ID; recommended holding off abx until eval by ID team Admitted to Dr Mobley and requesting Dr Gupta Discharge - Discharge Information Problems reviewed: Yes Clinical Impression/Diagnosis: Bilateral lower extremity edema, Cellulitis Condition: Stable - Follow up/Referral - Patient Discharge Instructions - Post Discharge Activity
--- NOTE | 2019-11-18 16:13 | PDOC ---
Documentation entered by Alejandro Garrido SCRIBE, acting as scribe for Freda Burton MD. Freda Burton MD: This documentation has been prepared by the Radhika mauricio Xhesika, SCRIBE, under my direction and personally reviewed by me in its entirety. I confirm that the documentation accurately reflects all work, treatment, procedures, and medical decision making performed by me. Attending Attestation - Resident Resident Name: BretRena - ED Attending Attestation I have performed the following: I have examined & evaluated the patient, The case was reviewed & discussed with the resident, I agree w/resident's findings & plan, Exceptions are as noted - HPI HPI: 11/18/19 14:17 The patient is a 88 year old male, with a significant past medical history of COPD (on O2 3L daily), HLD, osteomyelitis, DVT, CHF, HTN, TIA, anemia, CABG, valve replacement and diabetes, who presents to the ED with worsening BLE pain and increased drainage. Pt was seen in the ED 3 weeks ago for similiar symptoms and was diagnosed with cellulites. The patient denies chest pain, shortness of breath, headache and dizziness. Denies fever, chills, cough, nausea, vomiting, diarrhea and constipation. Allergies: Red and black pepper, penicillin Past surgical history: CABG, 1997 AORTIC VALVE REPLACED,TRIPLE BYPASS IN Social history: Former smoker. No alcohol or drug use reported Primary Care Physician: Dr. Mobley Screwmaker Automatic; Dr. Cespedes Obstetrical Anesthesiologist: Dr. Del Rosario - Physicial Exam PE: 11/18/19 16:06 General: non-toxic appearing HEENT: NCAT Chest: CTAB, good air entry, no crackles CVS: + s1 s2 Extremities: b/l LE redness and chronic skin changes, +erythema, +increased warmth, 2-3+ edema, +diffuse ttp, weeping serous fluid from L lower leg during exam, no crepitus - Medical Decision Making 11/18/19 16:09 89 yo M here with worsening b/l extremity pain and drainage, concern for cellulitis. Not rapidly progressive, patient non-toxic appearing, no crepitus, doubt nec fasciitis Plan: -labs -cxr -pain control -spoke with ID as patient was being followed by ID during previous visit and ID recommended hold abx for now and he will be evaluated as an inpatient -admit This clinical encounter is taking place during a federal and state health care emergency attributable to the novel Pat[place] Virus pandemic. The [place] of the Department of Health and Human Services has declared, pursuant to the Public Health Service Act 319F-3 (42 U.S.C. 247d-6d), that a covered persons activities related to medical countermeasures against COVID-19 will be immune from liability under Federal and State law. Discharge - Discharge Information Problems reviewed: Yes Clinical Impression/Diagnosis: Bilateral lower extremity edema, Cellulitis Condition: Stable Disposition: LONG TERM FACILITY - Follow up/Referral - Patient Discharge Instructions - Post Discharge Activity
[2019-11-18] MEDS ORDERED: WARFARIN NA 1 MG TABLET ONE (17:59)
[2019-11-18] MEDS: WARFARIN NA 2 MG TABLET PO SCH (18:09)
--- NOTE | 2019-11-18 20:48 | CON.ID ---
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) Rheumatology: Yes: Gout Additional Medical History: Glaucoma - Past Surgical History Past Surgical History: Yes: AAA Repair, Bypass (RLE), CABG, Carotid Endarterectomy (right), Cataract Removal, Colonoscopy, Upper Endoscopy, Valve Replacement (bioAVR 1983 x , 1997) - Alcohol/Substance Use Hx Alcohol Use: No History of Substance Use: reports: None - Smoking History Smoking history: Former smoker Have you smoked in the past 12 months: No Aproximately how many cigarettes per day: 0 If you are a former smoker, when did you quit?: 1966 - Social History Usual Living Arrangement: With Spouse ADL: Independent 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 [place] History of Recent Travel: No Home Medications - Allergies Allergies/Adverse Reactions: Allergies Allergy/AdvReac Type Severity Reaction Status Date / Time black pepper Allergy Verified 11/18/19 13:52 Penicillins Allergy Rash Verified 11/18/19 13:52 RED PEPPER Allergy Uncoded 11/18/19 13:52 - Home Medications Home Medications: Ambulatory Orders Atenolol [Tenormin -] 25 mg PO BID 06/16/17 Docusate Sodium [Colace] 100 mg PO TID 06/16/17 Terazosin HCl 4 mg PO HS 06/16/17 Warfarin Sodium [Coumadin] 2 mg PO HS 06/16/17 hydrALAZINE HCL [Apresoline -] 25 mg PO BID #60 tablet 06/25/17 Losartan Potassium 50 mg PO BID #30 tablet 04/29/19 Bumetanide 2 mg PO BID 05/12/19 Acetaminophen [Tylenol] 650 mg PO PRN 11/18/19 Bifidobacterium Infantis [Align] 10.5 mg PO DAILY 11/18/19 Budesonide/Formeterol Fumarate [SYMBICORT 160/4.5mcg -] 1 puff IN QID 11/18/19 Latanoprost/Pf [Latanoprost 0.005% Eye Drop] 1 drop OU HS 11/18/19 Metolazone 2.5 mg PO DAILY 11/18/19 Tramadol HCl 50 mg PO PRN 11/18/19 Physical Exam Vital Signs: Vital Signs Temperature 97.8 F 11/18/19 19:32 Pulse Rate 66 11/18/19 19:32 Respiratory Rate 24 H 11/18/19 19:32 Blood Pressure 129/62 11/18/19 19:32 O2 Sat by Pulse Oximetry (%) 100 11/18/19 20:04 Labs: CBC, BMP 11/18/19 14:10 11/18/19 14:10 Imaging - Results Chest X-ray: Pending Problem List - Problems (1) Bilateral lower extremity edema Code(s): R60.0 - LOCALIZED EDEMA (2) Cellulitis Code(s): L03.90 - CELLULITIS, UNSPECIFIED (3) Anemia Code(s): D64.9 - ANEMIA, UNSPECIFIED (4) CAD (coronary artery disease) Code(s): I25.10 - ATHSCL HEART DISEASE OF [place] CORONARY ARTERY W/O ANG PCTRS (5) COPD (chronic obstructive pulmonary disease) Code(s): J44.9 - CHRONIC OBSTRUCTIVE PULMONARY DISEASE, UNSPECIFIED (6) Chronic renal insufficiency Code(s): N18.9 - CHRONIC KIDNEY DISEASE, UNSPECIFIED (7) History of aortic valve replacement with bioprosthetic valve Code(s): Z98.890 - OTHER SPECIFIED POSTPROCEDURAL STATES; Z95.3 - PRESENCE OF XENOGENIC HEART VALVE (8) Hypertension Code(s): I10 - ESSENTIAL (PRIMARY) HYPERTENSION (9) Peripheral vascular disease Code(s): I73.9 - PERIPHERAL VASCULAR DISEASE, UNSPECIFIED (10) TIA (transient ischemic attack) Code(s): G45.9 - TRANSIENT CEREBRAL ISCHEMIC ATTACK, UNSPECIFIED (11) Venous stasis Code(s): I87.8 - OTHER SPECIFIED DISORDERS OF VEINS (12) Wound of lower extremity Code(s): S81.809A - UNSPECIFIED OPEN WOUND, UNSPECIFIED LOWER LEG, INIT ENCNTR (13) Thrombocytopenia Code(s): D69.6 - THROMBOCYTOPENIA, UNSPECIFIED
[2019-11-18] MEDS ORDERED: FUROSEMIDE 40 MG/4 ML INJECTABLE VIAL IVPUSH SCH (22:00)
[2019-11-18] MEDS ORDERED: TERAZOSIN HCL 2 MG CAPSULE PO SCH (22:00)
[2019-11-18] MEDS: BACITRACIN 15 GM TUBE TOPICAL OINTMENT TP SCH (22:06)
[2019-11-18] MEDS: ALBUTEROL SO4 2.5/IPRATROPIUM 0.5 INH SOL 3 ML VIAL.NEB. NEB SCH (22:08)
[2019-11-18] MEDS: ERTAPENEM SODIUM 0.5 GM in SODIUM CHLORIDE 50 ML IVPB SCH (22:08)
[2019-11-18] MEDS: DOCUSATE SODIUM 100 MG CAPSULE (FP) PO SCH (22:08)
[2019-11-18] MEDS ORDERED: ALBUTEROL SO4 2.5/IPRATROPIUM 0.5 INH SOL 3 ML VIAL.NEB. NEB ONE (22:12)
[2019-11-18] MEDS ORDERED: hydrALAZINE HCL 25 MG TABLET (FP) ONE (22:13)
[2019-11-18] MEDS ORDERED: ATENOLOL 25 MG TABLET (FP) ONE (22:13)
[2019-11-18] MEDS ORDERED: ATORVASTATIN CA 20 MG TABLET (FP) ONE (22:13)
[2019-11-18] MEDS ORDERED: DOCUSATE SODIUM 100 MG CAPSULE (FP) PO ONE (22:14)
[2019-11-18] MEDS: FEBUXOSTAT 40 MG TAB PO SCH (22:16)
[2019-11-18] MEDS: hydrALAZINE HCL 25 MG TABLET (FP) PO SCH (22:16)
[2019-11-18] MEDS: ATORVASTATIN CA 20 MG TABLET (FP) PO SCH (22:17)
[2019-11-18] MEDS: ATENOLOL 25 MG TABLET (FP) PO SCH (22:17)
[2019-11-18] MEDS: BUDESONIDE/FORMETEROL FUMARATE 160/4.5 mcg INHALER IH SCH (22:17)
[2019-11-18] MEDS: LATANOPROST 0.005% OPHTH SOLN 2.5ML BOTTLE OU SCH (22:19)
[2019-11-18] MEDS: MORPHINE SULFATE 2 MG/ML VIAL IVPUSH PRN (22:24)
[2019-11-18] MEDS ORDERED: MORPHINE SULFATE 2 MG/ML VIAL ONE (22:26)
[2019-11-19] MEDS ORDERED: MORPHINE SULFATE 2 MG/ML VIAL IVPUSH ONE (01:20)
[2019-11-19] MEDS ORDERED: ACETAMINOPHEN 1000 MG/100 ML VIAL (NON FORMULARY) IVPB ONE (01:30)
[2019-11-19] MEDS ORDERED: MORPHINE SULFATE 2 MG/ML VIAL ONE (01:35)
[2019-11-19] MEDS ORDERED: ACETAMINOPHEN INJECTION 100 ML IVPB ONE (01:37)
[2019-11-19] MEDS ORDERED: PT OWN MED DRAWER 7, Y5N ONE ×2 (09:15→21:32)
[2019-11-19] MEDS: MORPHINE SULFATE 2 MG/ML VIAL IVPUSH PRN ×3 (09:33→23:21)
[2019-11-19] MEDS: POTASSIUM CHLORIDE TABS 20 MEQ TABLET.ER (FP) PO SCH (09:34)
[2019-11-19] MEDS: LACTOBACILLUS ACIDOPHILUS 1 TABLET PO SCH (09:34)
[2019-11-19] MEDS: ERTAPENEM SODIUM 0.5 GM in SODIUM CHLORIDE 50 ML IVPB SCH (09:35)
[2019-11-19] MEDS: hydrALAZINE HCL 25 MG TABLET (FP) PO SCH ×2 (09:35→22:19)
[2019-11-19] MEDS: ATENOLOL 25 MG TABLET (FP) PO SCH ×2 (09:35→22:19)
[2019-11-19] MEDS: PANTOPRAZOLE 40 MG TABLET PO SCH (09:35)
[2019-11-19] MEDS: BACITRACIN 15 GM TUBE TOPICAL OINTMENT TP SCH ×2 (09:35→23:06)
[2019-11-19 09:51] LABS: BASO % 0.3 % (0-2.0); EOS % 1.5 % (0-4.5); HEMATOCRIT 25.3 % (35.4-49); LYMPH % 5.5 % (8-40); MCH 27.4 pg (25.7-33.7); MCHC 31.7 g/dl (32.0-35.9); MEAN CELL VOLUME 86.5 fl (80-96); MEAN PLT VOLUME 8.6 fl (7.5-11.1); NEUT % 78.7 % (42.8-82.8); PLATELET COUNT 53 K/MM3 (134-434); RBC 2.93 M/mm3 (4.00-5.60); RDW 18.2 % (11.9-15.9)
[2019-11-19 09:54] LABS: INR 2.25 (0.83-1.09); PROTHROMBIN TIME (PATIENT) 26.8 SEC (9.7-13.0)
[2019-11-19 10:19] LABS: ALBUMIN 2.9 g/dl (3.4-5.0); BILIRUBIN,TOTAL 0.7 mg/dL (0.2-1); BLOOD UREA NITROGEN 67.1 mg/dL (7-18); CALCIUM 8.5 mg/dL (8.5-10.1); CREATININE 2.5 mg/dL (0.55-1.3); N-TERMINAL BNP 17978.7 pg/ml (5-450); POTASSIUM 3.8 mmol/L (3.5-5.1); TOT PROT 7.2 g/dl (6.4-8.2)
--- NOTE | 2019-11-19 10:51 | HP ---
Admitting History and Physical - Admission History of Present Illness: 88 year old male, with a significant past medical history of COPD (on O2 3L daily), HLD, osteomyelitis, DVT, CHF, HTN, TIA, anemia, CABG, valve replacement and diabetes, who presents to the ED with worsening BLE pain and increased drainage. Pt was seen in the ED 3 weeks ago for similiar symptoms and was diagnosed with cellulites. The patient denies chest pain, shortness of breath, headache and dizziness. Denies fever, chills, cough, nausea, vomiting, diarrhea and constipation. 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 [place] and CABG in 1997. 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) Rheumatology: Yes: Gout - Past Surgical History Past Surgical History: Yes: AAA Repair, Bypass (RLE), CABG, Carotid Endarterectomy (right), Cataract Removal, Colonoscopy, Upper Endoscopy, Valve Replacement (bioAVR 1983 x 1997) - Smoking History Smoking history: Former smoker Have you smoked in the past 12 months: No Aproximately how many cigarettes per day: 0 If you are a former smoker, when did you quit?: 1967 - Alcohol/Substance Use Hx Alcohol Use: No History of Substance Use: reports: None - Social History ADL: Independent 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 [place] History of Recent Travel: No Home Medications - Allergies Allergies/Adverse Reactions: Allergies Allergy/AdvReac Type Severity Reaction Status Date / Time black pepper Allergy Verified 11/18/19 13:52 Penicillins Allergy Rash Verified 11/18/19 13:52 RED PEPPER Allergy Uncoded 11/18/19 13:52 - Home Medications Home Medications: Ambulatory Orders Atenolol [Tenormin -] 25 mg PO BID 06/16/17 Docusate Sodium [Colace] 100 mg PO TID 06/16/17 Terazosin HCl 4 mg PO HS 06/16/17 Warfarin Sodium [Coumadin] 2 mg PO HS 06/16/17 hydrALAZINE HCL [Apresoline -] 25 mg PO BID #60 tablet 06/25/17 Losartan Potassium 50 mg PO BID #30 tablet 04/29/19 Bumetanide 2 mg PO BID 05/12/19 Acetaminophen [Tylenol] 650 mg PO PRN 11/18/19 Bifidobacterium Infantis [Align] 10.5 mg PO DAILY 11/18/19 Budesonide/Formeterol Fumarate [SYMBICORT 160/4.5mcg -] 1 puff IN QID 11/18/19 Latanoprost/Pf [Latanoprost 0.005% Eye Drop] 1 drop OU HS 11/18/19 Metolazone 2.5 mg PO DAILY 11/18/19 Tramadol HCl 50 mg PO PRN 11/18/19 Physical Examination Vital Signs: Vital Signs Temperature 97.6 F 11/19/19 06:59 Pulse Rate 53 L 11/19/19 06:59 Respiratory Rate 11/19/19 06:59 Blood Pressure 191/76 H 11/19/19 06:59 O2 Sat by Pulse Oximetry (%) 100 11/19/19 03:40 Cardiovascular: Yes: Murmur, S1, S2 Respiratory: Yes: Regular, CTA Bilaterally Gastrointestinal: Yes: Normal Bowel Sounds, Soft Edema: Yes Integumentary: Yes: Venous Stasis Changes Neurological: Yes: Alert, Oriented Labs: CBC, BMP 11/19/19 09:05 11/19/19 09:05 Problem List - Problems (1) Cellulitis Assessment/Plan: IV ABX ID CONSULT Code(s): L03.90 - CELLULITIS, UNSPECIFIED (2) Bilateral lower extremity edema Assessment/Plan: LASIX AND FOLLOW LABS Code(s): R60.0 - LOCALIZED EDEMA (3) Anemia Assessment/Plan: FOLLOW LABS Code(s): D64.9 - ANEMIA, UNSPECIFIED (4) Atrial fibrillation Assessment/Plan: PER INR Code(s): I48.91 - UNSPECIFIED ATRIAL FIBRILLATION Qualifiers: Atrial fibrillation type: chronic
[2019-11-19] MEDS: BUDESONIDE/FORMETEROL FUMARATE 160/4.5 mcg INHALER IH SCH ×2 (12:41→22:17)
--- NOTE | 2019-11-19 14:26 | CON.NEP ---
Consult Consult Specialty:: nephrology Reason for Consultation:: ckd - History of Present Illness History of Present Illness: 89 y/o M, pmh of COPD (on O2 3L daily), HLD, osteomyelitis, PAD/PVD, DVT, CHF, HTN, TIA, anemia, CABG, MVR x3, claudication s/p stenting of the LE and diabetes presenting with BL LE pain and inability to walk. He hs chronic pain and swelling of his legs. Also reports abdominal discomfort and reduced urine output. He is seen by Dr Toth as outpatient. 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) Rheumatology: Yes: Gout Additional Medical History: Glaucoma - Past Surgical History Past Surgical History: Yes: AAA Repair, Bypass (RLE), CABG, Carotid Endarterectomy (right), Cataract Removal, Colonoscopy, Upper Endoscopy, Valve Replacement (bioAVR 1983 x 2, 1997) - Alcohol/Substance Use Hx Alcohol Use: No History of Substance Use: reports: None - Smoking History Smoking history: Former smoker Have you smoked in the past 12 months: No Aproximately how many cigarettes per day: 0 If you are a former smoker, when did you quit?: 1966 - Social History Usual Living Arrangement: With Spouse ADL: Independent 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 [employer] History of Recent Travel: No Home Medications - Allergies Allergies/Adverse Reactions: Allergies Allergy/AdvReac Type Severity Reaction Status Date / Time black pepper Allergy Verified 11/18/19 13:52 Penicillins Allergy Rash Verified 11/18/19 13:52 RED PEPPER Allergy Uncoded 11/18/19 13:52 - Home Medications Home Medications: Ambulatory Orders Atenolol [Tenormin -] 25 mg PO BID 06/16/17 Docusate Sodium [Colace] 100 mg PO TID 06/16/17 Terazosin HCl 4 mg PO HS 06/16/17 Warfarin Sodium [Coumadin] 2 mg PO HS 06/16/17 hydrALAZINE HCL [Apresoline -] 25 mg PO BID #60 tablet 06/25/17 Losartan Potassium 50 mg PO BID #30 tablet 04/29/19 Bumetanide 2 mg PO BID 05/12/19 Acetaminophen [Tylenol] 650 mg PO PRN 11/18/19 Bifidobacterium Infantis [Align] 10.5 mg PO DAILY 11/18/19 Budesonide/Formeterol Fumarate [SYMBICORT 160/4.5mcg -] 1 puff IN QID 11/18/19 Latanoprost/Pf [Latanoprost 0.005% Eye Drop] 1 drop OU HS 11/18/19 Metolazone 2.5 mg PO DAILY 11/18/19 Tramadol HCl 50 mg PO PRN 11/18/19 Review of Systems - Review of Systems Constitutional: reports: Weakness Eyes: reports: No Symptoms HENT: reports: No Symptoms Neck: reports: No Symptoms Cardiovascular: reports: No Symptoms Respiratory: reports: No Symptoms Gastrointestinal: reports: No Symptoms Genitourinary: reports: Other (difficulty urinating) Breasts: reports: No Symptoms Reported Musculoskeletal: reports: No Symptoms Integumentary: reports: No Symptoms Neurological: reports: No Symptoms Endocrine: reports: No Symptoms Hematology/Lymphatic: reports: No Symptoms Psychiatric: reports: No Symptoms Nephrology Consult - Height Height: 5 ft 9 in - Weight Weight: 171 lb - BMI Body Mass Index (BMI): 25.2 - Lab Results CBC,BMP: CBC, BMP 11/19/19 09:05 11/19/19 09:05 Anion Gap: Anion Gap Anion Gap 9 MMOL/L (8-16) 11/19/19 09:05 - Imaging Chest X-ray: Report Reviewed (no acute changes, has uncoiling of aorta, sternal sutures) - Physical Examination Vital Signs: Vital Signs Temperature 97.7 F 11/19/19 08:00 Pulse Rate 60 11/19/19 08:00 Respiratory Rate 20 11/19/19 08:00 Blood Pressure 142/56 L 11/19/19 08:00 O2 Sat by Pulse Oximetry (%) 100 11/19/19 09:00 Constitutional: Yes: Well Nourished, No Distress, Calm Eyes: Yes: Conjunctiva Clear, EOM Intact HENT: Yes: Atraumatic, Normocephalic Neck: Yes: Supple, Trachea Midline Cardiovascular: Yes: Regular Rate and Rhythm Respiratory: Yes: Regular, Diminished Gastrointestinal: Yes: Normal Bowel Sounds, Tenderness (in suprapubic area) Renal/: Yes: Bladder Distention Musculoskeletal: Yes: WNL Edema: LLE: 2+, RLE: 2+ Integumentary: Yes: WNL Wound/Incision: Yes: Clean/Dry Neurological: Yes: Alert, Oriented Psychiatric: Yes: Alert, Oriented Assessment/Plan IMPRESSION CKD- renal function is actually better than it was 3 weeks ago when he was discharged from here H/O Hep c m htn chf Lower extremity edema probably due to right sided heart failure PLAN will get a fox inserted agree with diuretics repeat uric acid level which was very high on previous admission/ pt had uloric ordered but this increases cardiovascular mortality, would try low dose all opurinol repeat hep c- ?ever treated MV
--- NOTE | 2019-11-19 14:42 | CON.PULM ---
Consult Consult Specialty:: PULMONARY Referred by:: Dr Mobley Reason for Consultation:: shortness of breath - History of Present Illness Chief Complaint: leg pain History of Present Illness: 89yo male with h/o HTN, hyperlipidemia, CAD s/p CABG, h/o MVR, PAD, DVT, LV diastolic dysfunction, pulmonary HTN, COPD, chronic hypoxic respiratory failure on home O2 who was admitted with LE pain and draining wounds. Noted to be tachypneic saturating 90% on nasal cannula. Currently main complaint is abdominal distention and suprapubic fullness. Minimal urine output with condom catheter. No acute findings on CXR. 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 and CABG in 1997. 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) Rheumatology: Yes: Gout Additional Medical History: Glaucoma - Past Surgical History Past Surgical History: Yes: AAA Repair, Bypass (RLE), CABG, Carotid Endarterectomy (right), Cataract Removal, Colonoscopy, Upper Endoscopy, Valve Replacement (bioAVR 1983 x , 1997) - Alcohol/Substance Use Hx Alcohol Use: No History of Substance Use: reports: None - Smoking History Smoking history: Former smoker Have you smoked in the past 12 months: No Aproximately how many cigarettes per day: 0 If you are a former smoker, when did you quit?: 1966 - Social History Usual Living Arrangement: With Spouse ADL: Independent 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 [employer] History of Recent Travel: No Home Medications - Allergies Allergies/Adverse Reactions: Allergies Allergy/AdvReac Type Severity Reaction Status Date / Time black pepper Allergy Verified 11/18/19 13:52 Penicillins Allergy Rash Verified 11/18/19 13:52 RED PEPPER Allergy Uncoded 11/18/19 13:52 - Home Medications Home Medications: Ambulatory Orders Atenolol [Tenormin -] 25 mg PO BID 06/16/17 Docusate Sodium [Colace] 100 mg PO TID 06/16/17 Terazosin HCl 4 mg PO HS 06/16/17 Warfarin Sodium [Coumadin] 2 mg PO HS 06/16/17 hydrALAZINE HCL [Apresoline -] 25 mg PO BID #60 tablet 06/25/17 Losartan Potassium 50 mg PO BID #30 tablet 04/29/19 Bumetanide 2 mg PO BID 05/12/19 Acetaminophen [Tylenol] 650 mg PO PRN 11/18/19 Bifidobacterium Infantis [Align] 10.5 mg PO DAILY 11/18/19 Budesonide/Formeterol Fumarate [SYMBICORT 160/4.5mcg -] 1 puff IN QID 11/18/19 Latanoprost/Pf [Latanoprost 0.005% Eye Drop] 1 drop OU HS 11/18/19 Metolazone 2.5 mg PO DAILY 11/18/19 Tramadol HCl 50 mg PO PRN 11/18/19 Review of Systems - Review of Systems Constitutional: denies: Chills, Fever, Weakness Eyes: denies: Recent Change in Vision HENT: denies: Nasal Congestion, Throat Pain Neck: denies: Stiffness, Tenderness Cardiovascular: reports: Shortness of Breath. denies: Chest Pain, Palpitations Respiratory: denies: Cough, Wheezing Gastrointestinal: reports: Bloating. denies: Nausea, Vomiting Genitourinary: reports: Other (Retention) Neurological: denies: Dizziness, Headache Endocrine: denies: Unexplained Weight Loss Physical Exam Vital Sings: Vital Signs Temperature 97.7 F 11/19/19 08:00 Pulse Rate 60 11/19/19 08:00 Respiratory Rate 11/19/19 08:00 Blood Pressure 142/56 L 11/19/19 08:00 O2 Sat by Pulse Oximetry (%) 100 11/19/19 09:00 Constitutional: Yes: Anxious Eyes: Yes: Conjunctiva Clear, EOM Intact HENT: Yes: Atraumatic, Normocephalic Neck: Yes: Supple, Trachea Midline Cardiovascular: Yes: Regular Rate and Rhythm Respiratory: Yes: Diminished (decreased breath sounds at the bases) ...Clubbing: No Gastrointestinal: Yes: Normal Bowel Sounds, Soft. No: Tenderness Edema: Yes Neurological: Yes: Alert, Oriented Labs: CBC, BMP 11/19/19 09:05 11/19/19 09:05 Imaging - Results Chest X-ray: Report Reviewed, Image Reviewed (basilar atelectasis) Assessment/Plan Cellulitis Urinary Retention CKD Atelectasis COPD Chronic Hypoxic Respiratory Failure CAD s/p CABG h/o MVR LV Diastolic Dysfunction Pulmonary HTN PAD h/o DVT - shortness of breath likely combination of anxiety from urinary retention and atelectasis from abdominal distention - place fox catheter - inhaled bronchodilators - O2 to keep SpO2 >90% - continue anticoagulation - antibiotics per ID - f/u cultures Thank you for this consult Jermaine Peterson MD
[2019-11-19] MEDS: FUROSEMIDE 40 MG/4 ML INJECTABLE VIAL IVPUSH SCH (15:00)
--- NOTE | 2019-11-19 16:52 | CON.ID ---
Consult - History of Present Illness History of Present Illness: 89 y.o. male with PMH of CAD, CABG, AVR, COPD O2 dependent, OM, TIA, CKD, PAD, LE cellulitis/LLE ulcer infection, s/p recent course of Meropenem and completed Linezolid as outpatient presents with c/o severe pain in RLE , b/l Hips, Rt side of head, Rt shoulder and reports recent drainage from LLE. As per pt, 2 days after his hospital discharge he fell resulting in swelling of Rt side of his head, bruising his left hip, and severe pain in RLE and Rt shoulder. Initially felt it was getting better but pain became worse and he has been unable to ambulate. Saw his PMD on 11/14/19 and had Xrays of his hips/shoulder done which revealed no fractures or dislocation and CT head without acute findings on 11/17/19. He presented to the ER yesterday with severe pain in RLE and continued difficulty moving his Rt shoulder and RLE due to pain. Noted to have normal vitals other than mild elevation in RR. Was given dose of Ertapenem, not restarted on Linezolid due to thrombocytopenia. Today he still complains of pain, receiving Morphine prn. LE b/l with no edema (improved significantly since last admission), no drainage from ulcers, and no warmth but + pain even at rest. He has no other complaints. 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) Rheumatology: Yes: Gout Additional Medical History: Glaucoma - Past Surgical History Past Surgical History: Yes: AAA Repair, Bypass (RLE), CABG, Carotid Endarterectomy (right), Cataract Removal, Colonoscopy, Upper Endoscopy, Valve Replacement (bioAVR 1983 x 1997) - Alcohol/Substance Use Hx Alcohol Use: No History of Substance Use: reports: None - Smoking History Smoking history: Former smoker Have you smoked in the past 12 months: No Aproximately how many cigarettes per day: 0 If you are a former smoker, when did you quit?: 1966 - Social History Usual Living Arrangement: With Spouse ADL: Independent 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 [employer] History of Recent Travel: No Home Medications - Allergies Allergies/Adverse Reactions: Allergies Allergy/AdvReac Type Severity Reaction Status Date / Time black pepper Allergy Verified 11/18/19 13:52 Penicillins Allergy Rash Verified 11/18/19 13:52 RED PEPPER Allergy Uncoded 11/18/19 13:52 - Home Medications Home Medications: Ambulatory Orders Atenolol [Tenormin -] 25 mg PO BID 06/16/17 Docusate Sodium [Colace] 100 mg PO TID 06/16/17 Terazosin HCl 4 mg PO HS 06/16/17 Warfarin Sodium [Coumadin] 2 mg PO HS 06/16/17 hydrALAZINE HCL [Apresoline -] 25 mg PO BID #60 tablet 06/25/17 Losartan Potassium 50 mg PO BID #30 tablet 04/29/19 Bumetanide 2 mg PO BID 05/12/19 Acetaminophen [Tylenol] 650 mg PO PRN 11/18/19 Bifidobacterium Infantis [Align] 10.5 mg PO DAILY 11/18/19 Budesonide/Formeterol Fumarate [SYMBICORT 160/4.5mcg -] 1 puff IN QID 11/18/19 Latanoprost/Pf [Latanoprost 0.005% Eye Drop] 1 drop OU HS 11/18/19 Metolazone 2.5 mg PO DAILY 11/18/19 Tramadol HCl 50 mg PO PRN 11/18/19 Review of Systems - Review of Systems Constitutional: reports: No Symptoms. denies: Chills, Diaphoresis, Fever, Lethargy, Loss of Appetite, Malaise, Night Sweats, Unintentional Wgt. Loss, Weakness, Other Eyes: reports: No Symptoms. denies: Blind Spots, Blurred Vision, Double Vision, Eye Pain, Floaters, Photophobia, Recent Change in Vision, Other HENT: reports: No Symptoms. denies: Difficult Swallowing, Ear Discharge, Ear Pain, Epistaxis, Gingival Bleeding, Hearing Loss, Mouth Swelling, Nasal Congestion, Ocular Prosthesis, Throat Pain, Toothache, Ringing in Ears, Other Neck: reports: No Symptoms. denies: Decreased ROM, Lumps, Pain on Movement, Stiffness, Swollen Glands, Tenderness, Other Cardiovascular: reports: No Symptoms. denies: Chest Pain, Edema, Palpitations, Shortness of Breath, Other Respiratory: reports: No Symptoms. denies: Cough, Exercise Intolerance, Hemoptysis, Orthopnea, PND, Snoring, SOB, SOB on Exertion, Wheezing, Other Gastrointestinal: reports: No Symptoms. denies: Abdominal Pain, Bloating, Co nstipation, Diarrhea, Dysphagia, Indigestion, Melena, Nausea, Rectal Bleeding, Vomiting, Vomiting Blood, Other Genitourinary: reports: No Symptoms. denies: Burning, Discharge, Dysuria, Flank Pain, Frequency, Hematuria, Incontinence, Lesions, Menses, Pain, Testicular Mass, Testicular Pain, Testicular Swelling, Urgency, Vaginal Bleeding, Other Musculoskeletal: reports: Decreased ROM (Rt shoulder/RLE) Integumentary: reports: Bruising (Lt hip) Neurological: reports: No Symptoms Endocrine: reports: No Symptoms Hematology/Lymphatic: reports: No Symptoms Psychiatric: reports: No Symptoms Pain Intensity: 8 Physical Exam Vital Signs: Vital Signs Temperature 97.9 F 11/19/19 15:36 Pulse Rate 60 11/19/19 15:36 Respiratory Rate 20 11/19/19 15:36 Blood Pressure 148/65 11/19/19 15:36 O2 Sat by Pulse Oximetry (%) 100 11/19/19 09:00 Constitutional: Yes: No Distress, Calm Eyes: Yes: Conjunctiva Clear, EOM Intact HENT: Yes: Atraumatic, Normocephalic Neck: Yes: Supple Cardiovascular: Yes: Regular Rate and Rhythm Respiratory: Yes: CTA Bilaterally (although poor inspiratory intake) Gastrointestinal: Yes: Normal Bowel Sounds, Soft Renal/: Yes: WNL Musculoskeletal: Yes: Other (Rt shoulder pain, RLE pain with decreased ROM) Extremities: Yes: Erythema (chronic b/l LE erythema/venous stasis changes) Edema: No Integumentary: Yes: Bruising (Lt hip) Wound/Incision: Yes: Other (b/l LE chronic erythema, no warmth, no significant edema, no draining ulcers, ++tenderness) Neurological: Yes: Alert, Oriented Psychiatric: Yes: Alert, Oriented Labs: CBC, BMP 11/19/19 09:05 11/19/19 09:05 Imaging - Results X-ray: Report Reviewed (Rt shoulder/ bilateral hip Xrays without fracture or dislocation) Cat Scan: Report Reviewed (Head CT no acute findings) Problem List - Problems (1) Bilateral lower extremity edema Code(s): R60.0 - LOCALIZED EDEMA (2) Cellulitis Code(s): L03.90 - CELLULITIS, UNSPECIFIED (3) Anemia Code(s): D64.9 - ANEMIA, UNSPECIFIED (4) CAD (coronary artery disease) Code(s): I25.10 - ATHSCL HEART DISEASE OF [place] CORONARY ARTERY W/O ANG PCTRS (5) COPD (chronic obstructive pulmonary disease) Code(s): J44.9 - CHRONIC OBSTRUCTIVE PULMONARY DISEASE, UNSPECIFIED (6) Chronic renal insufficiency Code(s): N18.9 - CHRONIC KIDNEY DISEASE, UNSPECIFIED (7) History of aortic valve replacement with bioprosthetic valve Code(s): Z98.890 - OTHER SPECIFIED POSTPROCEDURAL STATES; Z95.3 - PRESENCE OF XENOGENIC HEART VALVE (8) Hypertension Code(s): I10 - ESSENTIAL (PRIMARY) HYPERTENSION (9) Peripheral vascular disease Code(s): I73.9 - PERIPHERAL VASCULAR DISEASE, UNSPECIFIED (10) TIA (transient ischemic attack) Code(s): G45.9 - TRANSIENT CEREBRAL ISCHEMIC ATTACK, UNSPECIFIED (11) Venous stasis Code(s): I87.8 - OTHER SPECIFIED DISORDERS OF VEINS (12) Wound of lower extremity Code(s): S81.809A - UNSPECIFIED OPEN WOUND, UNSPECIFIED LOWER LEG, INIT ENCNTR (13) Thrombocytopenia Code(s): D69.6 - THROMBOCYTOPENIA, UNSPECIFIED (14) Status post fall Code(s): Z91.81 - HISTORY OF FALLING Assessment/Plan 89 y.o. male with PMH of CAD, CABG, AVR, COPD O2 dependent, OM, TIA, CKD, PAD, LE cellulitis/LLE ulcer infection, s/p recent course of Meropenem and completed Linezolid as outpatient presents with c/o severe pain in RLE , b/l Hips, Rt side of head, Rt shoulder and reports recent drainage from LLE. As per pt, 2 days after his hospital discharge he fell resulting in swelling of Rt side of his head, bruising his left hip, and severe pain in RLE and Rt shoulder s/p Fall RLE pain Shoulder pain Hip pain Hx of recent LLE cellulitis/ulcer infection Thrombocytopenia CKD CAD s/p CABG COPD CKD PAD s/p AVR -- improved LLE cellulitis since last admission, no drainage noted from ulcers, afebrile/wbc normal. Completed course of antibiotics recently. -- no obvious sign RLE cellulitis/wound infection at this time (dry today) -- will hold off on further antibiotics for now -- blood cultures negative 24h, RLE wound culture pending -- thrombocytopenia could possibly be attributed to recent course of Linezolid, monitor -- Xrays done of hips/Rt shoulder on 11/16/19, prior to admission without obvious fracture/dislocation, consider Xray of RLE or further imaging if pain persists/Ortho eval -- vitals currently stable/afebrile, fully alert/responsive Monitor closely Will follow up Thank you
[2019-11-19] MEDS: ACETAMINOPHEN 325 MG TABLET (FP) PO PRN (17:42)
[2019-11-19] MEDS: DOCUSATE SODIUM 100 MG CAPSULE (FP) PO SCH ×2 (17:42→22:19)
[2019-11-19] MEDS: WARFARIN NA 2 MG TABLET PO SCH (17:44)
[2019-11-19] MEDS: ALBUTEROL SO4 2.5/IPRATROPIUM 0.5 INH SOL 3 ML VIAL.NEB. NEB SCH (21:05)
[2019-11-19] MEDS: FEBUXOSTAT 40 MG TAB PO SCH (22:19)
[2019-11-19] MEDS: TERAZOSIN HCL 1 MG CAPSULE PO SCH (22:19)
[2019-11-19] MEDS: ATORVASTATIN CA 20 MG TABLET (FP) PO SCH (22:19)
[2019-11-19] MEDS: LATANOPROST 0.005% OPHTH SOLN 2.5ML BOTTLE OU SCH (23:07)
[2019-11-20] MEDS: FUROSEMIDE 40 MG/4 ML INJECTABLE VIAL IVPUSH SCH ×3 (06:08→15:45)
[2019-11-20] MEDS: DOCUSATE SODIUM 100 MG CAPSULE (FP) PO SCH ×4 (06:08→22:08)
[2019-11-20] MEDS: POTASSIUM CHLORIDE TABS 20 MEQ TABLET.ER (FP) PO SCH (06:11)
[2019-11-20] MEDS: MORPHINE SULFATE 2 MG/ML VIAL IVPUSH PRN ×3 (06:19→22:20)
[2019-11-20] MEDS: ACETAMINOPHEN 325 MG TABLET (FP) PO PRN ×2 (06:56→15:47)
[2019-11-20 08:59] LABS: BASO % 0.5 % (0-2.0); EOS % 2.6 % (0-4.5); HEMATOCRIT 22.9 % (35.4-49); HEMOGLOBIN 7.4 GM/dL (11.7-16.9); LYMPH % 6.1 % (8-40); MCHC 32.3 g/dl (32.0-35.9); MEAN CELL VOLUME 86.5 fl (80-96); MEAN PLT VOLUME 9.2 fl (7.5-11.1); MONO % 12.1 % (3.8-10.2); NEUT % 78.7 % (42.8-82.8); PLATELET COUNT 48 K/MM3 (134-434); RBC 2.65 M/mm3 (4.00-5.60); RDW 17.8 % (11.9-15.9); WHITE BLOOD COUNT 5.3 K/mm3 (4.0-10.0)
[2019-11-20] MEDS ORDERED: PT OWN MED DRAWER 7, Y5N ONE ×2 (09:02→21:54)
[2019-11-20] MEDS ORDERED: FUROSEMIDE 40 MG/4 ML INJECTABLE VIAL IVPUSH ONE (09:04)
[2019-11-20] MEDS: hydrALAZINE HCL 25 MG TABLET (FP) PO SCH ×2 (09:25→22:08)
[2019-11-20] MEDS: LACTOBACILLUS ACIDOPHILUS 1 TABLET PO SCH (09:25)
[2019-11-20] MEDS: ATENOLOL 25 MG TABLET (FP) PO SCH ×2 (09:25→22:08)
[2019-11-20] MEDS: PANTOPRAZOLE 40 MG TABLET PO SCH (09:25)
[2019-11-20] MEDS: BACITRACIN 15 GM TUBE TOPICAL OINTMENT TP SCH ×2 (09:26→22:08)
[2019-11-20] MEDS: BUDESONIDE/FORMETEROL FUMARATE 160/4.5 mcg INHALER IH SCH ×2 (09:26→22:07)
[2019-11-20 09:46] LABS: ALBUMIN 2.5 g/dl (3.4-5.0); BILIRUBIN,TOTAL 0.7 mg/dL (0.2-1); BLOOD UREA NITROGEN 65.8 mg/dL (7-18); CALCIUM 8.6 mg/dL (8.5-10.1); CREATININE 2.2 mg/dL (0.55-1.3); POTASSIUM 4.5 mmol/L (3.5-5.1); TOT PROT 6.4 g/dl (6.4-8.2)
--- NOTE | 2019-11-20 13:45 | PN ---
Progress Note, Physician - Current Medication List Current Medications: Active Medications Acetaminophen (Tylenol -) 650 mg PO Q6H PRN PRN Reason: PAIN LEVEL 1-5 Last Admin: 11/20/19 06:56 Dose: 650 mg Documented by: Albuterol/Ipratropium (Duoneb -) 1 amp NEB RQID [facility] Last Admin: 11/19/19 21:05 Dose: 1 amp Documented by: Atenolol (Tenormin -) 25 mg PO BID [facility] Last Admin: 11/20/19 09:25 Dose: 25 mg Documented by: Atorvastatin Calcium (Lipitor -) 20 mg PO [facility] Last Admin: 11/19/19 22:19 Dose: 20 mg Documented by: Bacitracin (Bacitracin -) 1 applic TP BID [facility] Last Admin: 11/20/19 09:26 Dose: 1 applic Documented by: Budesonide/Formoterol Fumarate (Symbicort 160/4.5mcg -) 2 puff IH BID [facility] Last Admin: 11/20/19 09:26 Dose: 2 puff Documented by: Docusate Sodium (Colace -) 100 mg PO TID [facility] Last Admin: 11/20/19 06:08 Dose: 100 mg Documented by: Febuxostat (Uloric -) 40 mg PO [facility] Last Admin: 11/19/19 22:19 Dose: 40 mg Documented by: Furosemide (Lasix Injection -) 40 mg IVPUSH BIDLASIX [facility] Last Admin: 11/20/19 06:08 Dose: 40 mg Documented by: Hydralazine HCl (Apresoline -) 25 mg PO BID [facility] Last Admin: 11/20/19 09:25 Dose: 25 mg Documented by: Lactobacillus Acidophilus (Bacid -) 1 tab PO DAILY [facility] Last Admin: 11/20/19 09:25 Dose: 1 tab Documented by: Latanoprost (Xalatan 0.005% Eye Drops -) 1 drop OU [facility] Last Admin: 11/19/19 23:07 Dose: 1 drop Documented by: Morphine Sulfate (Morphine Sulfate) 1 mg IVPUSH Q4H PRN PRN Reason: PAIN LEVEL 7 - 10 Last Admin: 11/20/19 06:19 Dose: 1 mg Documented by: Pantoprazole Sodium (Protonix -) 40 mg PO DAILY [facility] Last Admin: 07/05/20 09:25 Dose: 40 mg Documented by: Potassium Chloride (K-Dur -) 40 meq PO AM [facility] Last Admin: 11/20/19 06:11 Dose: 40 meq Documented by: Terazosin HCl (Hytrin -) 2 mg PO HS [facility] Last Admin: 11/19/19 22:19 Dose: 2 mg Documented by: Warfarin Sodium (Coumadin -) 2 mg PO DAILY@1800 [facility] Last Admin: 11/19/19 17:44 Dose: 2 mg Documented by: - Objective Vital Signs: Vital Signs Temperature 98.2 F 11/20/19 10:33 Pulse Rate 66 11/20/19 10:33 Respiratory Rate 20 11/20/19 10:33 Blood Pressure 115/66 11/20/19 10:33 O2 Sat by Pulse Oximetry (%) 97 11/20/19 09:00 Cardiovascular: Yes: S1, S2 Respiratory: Yes: Regular, CTA Bilaterally Gastrointestinal: Yes: Normal Bowel Sounds, Soft. No: Tenderness Labs: CBC, BMP 11/20/19 08:20 11/20/19 08:20 INR, PTT INR 2.25 (0.83-1.09) H 11/19/19 09:05 Problem List - Problems (1) Cellulitis Assessment/Plan: NO ABX ID CONSULT NOTED Code(s): L03.90 - CELLULITIS, UNSPECIFIED (2) Bilateral lower extremity edema Assessment/Plan: LASIX AND FOLLOW LABS Code(s): R60.0 - LOCALIZED EDEMA (3) Anemia Assessment/Plan: ONE UNIT PRBC MONITOR LABS STOOL FOR BLOOD Code(s): D64.9 - ANEMIA, UNSPECIFIED (4) Atrial fibrillation Assessment/Plan: PER INR Code(s): I48.91 - UNSPECIFIED ATRIAL FIBRILLATION Qualifiers: Atrial fibrillation type: chronic (5) Thrombocytopenia Assessment/Plan: Laboratory Tests 10/31/19 11/01/19 11/18/19 06:55 07:50 14:10 Plt Count 125 L 108 L 64 L D 11/19/19 11/20/19 09:05 08:20 Plt Count 53 L 48 L HEM CONSULT HOLD COUMADIN FOLLOW LABS HOLD ULORIC Code(s): D69.6 - THROMBOCYTOPENIA, UNSPECIFIED
--- NOTE | 2019-11-20 13:59 | PN ---
Progress Note (short form) - Note Progress Note: PULMONARY Breathing improved s/p fox placement. Vital Signs Period Temp Pulse Resp BP Sys/Hernandez Pulse Ox Last 24 Hr 97.8 F-98.2 F 59-66 20-20 115-155/65-79 97-97 Gen: NAD at rest Heart: RRR Lung: decreased breath sounds at the bases Abd: soft, nontender Ext: no edema CBC, BMP 11/20/19 08:20 11/20/19 08:20 Active Medications Acetaminophen (Tylenol -) 650 mg PO Q6H PRN PRN Reason: PAIN LEVEL 1-5 Last Admin: 11/20/19 06:56 Dose: 650 mg Documented by: Albuterol/Ipratropium (Duoneb -) 1 amp NEB RQID [facility] Last Admin: 11/19/19 21:05 Dose: 1 amp Documented by: Atenolol (Tenormin -) 25 mg PO BID [facility] Last Admin: 11/20/19 09:25 Dose: 25 mg Documented by: Atorvastatin Calcium (Lipitor -) 20 mg PO HS [facility] Last Admin: 11/19/19 22:19 Dose: 20 mg Documented by: Bacitracin (Bacitracin -) 1 applic TP BID [facility] Last Admin: 11/20/19 09:26 Dose: 1 applic Documented by: Budesonide/Formoterol Fumarate (Symbicort 160/4.5mcg -) 2 puff IH BID [facility] Last Admin: 11/20/19 09:26 Dose: 2 puff Documented by: Docusate Sodium (Colace -) 100 mg PO TID [facility] Last Admin: 11/20/19 06:08 Dose: 100 mg Documented by: Furosemide (Lasix Injection -) 40 mg IVPUSH BIDLASIX [facility] Last Admin: 11/20/19 06:08 Dose: 40 mg Documented by: Hydralazine HCl (Apresoline -) 25 mg PO BID [facility] Last Admin: 11/20/19 09:25 Dose: 25 mg Documented by: Lactobacillus Acidophilus (Bacid -) 1 tab PO DAILY [facility] Last Admin: 11/20/19 09:25 Dose: 1 tab Documented by: Latanoprost (Xalatan 0.005% Eye Drops -) 1 drop OU HS [facility] Last Admin: 11/19/19 23:07 Dose: 1 drop Documented by: Morphine Sulfate (Morphine Sulfate) 1 mg IVPUSH Q4H PRN PRN Reason: PAIN LEVEL 7 - 10 Last Admin: 11/20/19 06:19 Dose: 1 mg Documented by: Pantoprazole Sodium (Protonix -) 40 mg PO DAILY [facility] Last Admin: 11/20/19 09:25 Dose: 40 mg Documented by: Potassium Chloride (K-Dur -) 40 meq PO AM [facility] Last Admin: 11/20/19 06:11 Dose: 40 meq Documented by: Terazosin HCl (Hytrin -) 2 mg PO HS [facility] Last Admin: 11/19/19 22:19 Dose: 2 mg Documented by: A/P Leg Cellulitis/Ulcer Infection Urinary Retention s/p fox placement CKD Atelectasis COPD Chronic Hypoxic Respiratory Failure CAD s/p CABG h/o MVR LV Diastolic Dysfunction Pulmonary HTN PAD h/o DVT - shortness of breath likely combination of anxiety from urinary retention and atelectasis from abdominal distention - s/p fox catheter placement - inhaled bronchodilators - O2 to keep SpO2 >90% - continue anticoagulation - antibiotics per ID - f/u cultures
--- NOTE | 2019-11-20 14:10 | CON.HO ---
Consult - text type - Consultation Consultation Note: 89 y.o. male with PMH of CAD, CABG, AVR, COPD O2 dependent, OM, TIA, CKD, PAD, LE cellulitis/LLE ulcer infection, s/p recent course of Meropenem and completed Linezolid as outpatient presents with c/o severe pain in RLE , b/l Hips, Rt side of head, Rt shoulder and reports recent drainage from LLE. As per pt, 2 days after his hospital discharge he fell resulting in swelling of Rt side of his head, bruising his left hip, and severe pain in RLE and Rt shoulder. Initially felt it was getting better but pain became worse and he has been unable to ambulate. Saw his PMD on 11/14/19 and had Xrays of his hips/shoulder done which revealed no fractures or dislocation and CT head without acute findings on 11/17/19. He presented to the ER with severe pain in RLE and continued difficulty moving his Rt shoulder and RLE due to pain. Noted to have normal vitals other than mild elevation in RR. Was given dose of Ertapenem, not restarted on Linezolid due to thrombocytopenia. - Past Medical History [employer]: Yes: TIA (during 1983 CABG/AVR in [facility]) Cardio/Vascular: Yes: AFIB, CAD (s/p triple CABG and porcine AVR in 1983 complicated by endocarditis and requiring a repeat AVR within 2 weeks at [facility], he had repeat AVR at [facility] and CABG in 1997. 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) Rheumatology: Yes: Gout Additional Medical History: Glaucoma - Past Surgical History Past Surgical History: Yes: AAA Repair, Bypass (RLE), CABG, Carotid Endarterectomy (right), Cataract Removal, Colonoscopy, Upper Endoscopy, Valve Replacement (bioAVR 1983 x 1997) - Smoking History Smoking history: Former smoker - Social History Usual Living Arrangement: With Spouse ADL: Independent 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 - Allergies Allergies/Adverse Reactions: Allergies Allergy/AdvReac Type Severity Reaction Status Date / Time black pepper Allergy Verified 11/18/19 13:52 Penicillins Allergy Rash Verified 11/18/19 13:52 RED PEPPER Allergy Uncoded 11/18/19 13:52 - Home Medications Home Medications: Ambulatory Orders Atenolol [Tenormin -] 25 mg PO BID 06/16/17 Docusate Sodium [Colace] 100 mg PO TID 06/16/17 Terazosin HCl 4 mg PO HS 06/16/17 Warfarin Sodium [Coumadin] 2 mg PO HS 06/16/17 hydrALAZINE HCL [Apresoline -] 25 mg PO BID #60 tablet 06/25/17 Losartan Potassium 50 mg PO BID #30 tablet 04/29/19 Bumetanide 2 mg PO BID 05/12/19 Acetaminophen [Tylenol] 650 mg PO PRN 11/18/19 Bifidobacterium Infantis [Align] 10.5 mg PO DAILY 11/18/19 Budesonide/Formeterol Fumarate [SYMBICORT 160/4.5mcg -] 1 puff IN QID 11/18/19 Latanoprost/Pf [Latanoprost 0.005% Eye Drop] 1 drop OU HS 11/18/19 Metolazone 2.5 mg PO DAILY 11/18/19 Tramadol HCl 50 mg PO PRN 11/18/19 Physical Exam Vital Signs: Last Vital Signs Temp Pulse Resp BP Pulse Ox 98.2 F 66 20 115/66 97 11/20/19 10:33 11/20/19 10:33 11/20/19 10:33 11/20/19 10:33 11/20/19 09:00 Cor: RSR, No murmurs, No gallops Lungs: Clear to P&A Abd: Soft, Normal bowel sounds, No organomegaly Ext:No significant edema Imaging - Results X-ray: Report Reviewed (Rt shoulder/ bilateral hip Xrays without fracture or dislocation) Cat Scan: Report Reviewed (Head CT no acute findings) Problem List - Problems (1) Bilateral lower extremity edema Code(s): R60.0 - LOCALIZED EDEMA (2) Cellulitis Code(s): L03.90 - CELLULITIS, UNSPECIFIED (3) Anemia Code(s): D64.9 - ANEMIA, UNSPECIFIED (4) CAD (coronary artery disease) Code(s): I25.10 - ATHSCL HEART DISEASE OF [place] CORONARY ARTERY W/O ANG PCTRS (5) COPD (chronic obstructive pulmonary disease) Code(s): J44.9 - CHRONIC OBSTRUCTIVE PULMONARY DISEASE, UNSPECIFIED (6) Chronic renal insufficiency Code(s): N18.9 - CHRONIC KIDNEY DISEASE, UNSPECIFIED (7) History of aortic valve replacement with bioprosthetic valve Code(s): Z98.890 - OTHER SPECIFIED POSTPROCEDURAL STATES; Z95.3 - PRESENCE OF XENOGENIC HEART VALVE (8) Hypertension Code(s): I10 - ESSENTIAL (PRIMARY) HYPERTENSION (9) Peripheral vascular disease Code(s): I73.9 - PERIPHERAL VASCULAR DISEASE, UNSPECIFIED (10) TIA (transient ischemic attack) Code(s): G45.9 - TRANSIENT CEREBRAL ISCHEMIC ATTACK, UNSPECIFIED (11) Venous stasis Code(s): I87.8 - OTHER SPECIFIED DISORDERS OF VEINS (12) Wound of lower extremity Code(s): S81.809A - UNSPECIFIED OPEN WOUND, UNSPECIFIED LOWER LEG, INIT ENCNTR (13) Thrombocytopenia Code(s): D69.6 - THROMBOCYTOPENIA, UNSPECIFIED (14) Status post fall Code(s): Z91.81 - HISTORY OF FALLING Assessment/Plan 89 y.o. male with PMH of CAD, CABG, AVR, COPD O2 dependent, OM, TIA, CKD, PAD, LE cellulitis/LLE ulcer infection, s/p recent course of Meropenem and completed Linezolid as outpatient presents with c/o severe pain in RLE , b/l Hips, Rt side of head, Rt shoulder and reports recent drainage from LLE. As per pt, 2 days after his hospital discharge he fell resulting in swelling of Rt side of his head, bruising his left hip, and severe pain in RLE and Rt shoulder s/p Fall RLE pain Shoulder pain Hip pain Hx of recent LLE cellulitis/ulcer infection CKD CAD cHF s/p CABG COPD PAD s/p AVR ? wound infection-- LFGNB. No clinical infxn per ID Anemia: chronic anemia of chronic disease --CKD/CHF/COPD+ -/infection+/- gilosses recheck iron studies/ferritin Transfuse PRBCs for Hgb <7 Thrombocytopenia : Ongoing infection/recent linezolid use and myelosuppresion / ? consumption from passive congestion discussed possibility of MDS . PAtient does not want to pursue aggressive w/u for this at this time
--- NOTE | 2019-11-20 14:16 | EKG ---
Test Reason : Blood Pressure : / mmHG Vent. Rate : 062 BPM Atrial Rate : 078 BPM P-R Int : 000 ms QRS Dur : 140 ms QT Int : 474 ms P-R-T Axes : 000 -37 -23 degrees QTc Int : 481 ms ATRIAL FIBRILLATION LEFT AXIS DEVIATION RIGHT BUNDLE BRANCH BLOCK ABNORMAL ECG WHEN COMPARED WITH ECG OF 27-OCT-2019 15:52, T WAVE VARIATION Confirmed by VIANEY KLEIN MD ([id number]) on 11/20/2019 2:16:10 PM Referred By: Confirmed By:VIANEY KLEIN MD
--- NOTE | 2019-11-20 14:29 | PN ---
Progress Note (short form) - Note Progress Note: RENAL Pt is awake and alert says he still cant walk and has pain in lower extremities Last Vital Signs Temp Pulse Resp BP Pulse Ox 98.2 F 66 20 115/66 97 11/20/19 10:33 11/20/19 10:33 11/20/19 10:33 11/20/19 10:33 11/20/19 09:00 lungs clear cvs s1s2 rr abd soft ext bilat tenderness right greater than left neuro a+ox3 CBC, BMP 11/20/19 08:20 11/20/19 08:20 Current Medications Generic Name Dose Route Start Last Admin Trade Name Freq PRN Reason Stop Dose Admin Acetaminophen 650 mg 11/19/19 17:29 11/20/19 06:56 Tylenol - PO 650 mg Q6H PRN Administration PAIN LEVEL 1-5 Albuterol/Ipratropium 1 amp 11/18/19 20:00 11/19/19 21:05 Duoneb - NEB 1 amp RQID [facility] Administration Atenolol 25 mg 11/18/19 22:00 11/20/19 09:25 Tenormin - PO 25 mg BID [facility] Administration Atorvastatin Calcium 20 mg 11/18/19 22:00 11/19/19 22:19 Lipitor - PO 20 mg HS [facility] Administration Bacitracin 1 applic 11/18/19 22:00 11/20/19 09:26 Bacitracin - TP 1 applic BID [facility] Administration Budesonide/Formoterol Fumarate 2 puff 11/18/19 22:00 11/20/19 09:26 Symbicort 160/4.5mcg - IH 2 puff BID [facility] Administration Docusate Sodium 100 mg 11/18/19 22:00 11/20/19 06:08 Colace - PO 100 mg TID [facility] Administration Furosemide 40 mg 11/19/19 06:00 11/20/19 06:08 Lasix Injection - IVPUSH 40 mg BIDLASIX [facility] Administration Hydralazine HCl 25 mg 11/18/19 22:00 11/20/19 09:25 Apresoline - PO 25 mg BID [facility] Administration Lactobacillus Acidophilus 1 tab 11/19/19 10:00 11/20/19 09:25 Bacid - PO 1 tab DAILY [facility] Administration Latanoprost 1 drop 11/18/19 22:00 11/19/19 23:07 Xalatan 0.005% Eye Drops - OU 1 drop HS [facility] Administration Morphine Sulfate 1 mg 11/18/19 17:00 11/20/19 06:19 Morphine Sulfate IVPUSH 1 mg Q4H PRN Administration PAIN LEVEL 7 - 10 Pantoprazole Sodium 40 mg 11/19/19 10:00 11/20/19 09:25 Protonix - PO 40 mg DAILY [facility] Administration Potassium Chloride 40 meq 11/19/19 07:00 11/20/19 06:11 K-Dur - PO 40 meq AM [facility] Administration Terazosin HCl 2 mg 11/19/19 22:00 11/19/19 22:19 Hytrin - PO 2 mg HS [facility] Administration IMPRESSION CKD- renal function is actually better than it was 3 weeks ago when he was discharged from here H/O Hep c htn chf Lower extremity edema probably due to right sided heart failure, no dvt. ECHO in 04/2019 showed right ventricular pressure of 40 to 50 thrombocytopenia PLAN diuresis repeat hep c- ?ever treated analgesics continue other management MV
[2019-11-20] MEDS: ALBUTEROL SO4 2.5/IPRATROPIUM 0.5 INH SOL 3 ML VIAL.NEB. NEB SCH ×4 (16:50→20:34)
--- NOTE | 2019-11-20 18:17 | PN ---
Progress Note, Physician History of Present Illness: Pt still c/o pain in RLE. Remains afebrile. - Current Medication List Current Medications: Active Medications Acetaminophen (Tylenol -) 650 mg PO Q6H PRN PRN Reason: PAIN LEVEL 1-5 Last Admin: 11/20/19 15:47 Dose: 650 mg Documented by: Albuterol/Ipratropium (Duoneb -) 1 amp NEB RQID [facility] Last Admin: 11/20/19 17:00 Dose: 1 amp Documented by: Atenolol (Tenormin -) 25 mg PO BID [facility] Last Admin: 11/20/19 09:25 Dose: 25 mg Documented by: Atorvastatin Calcium (Lipitor -) 20 mg PO HS [facility] Last Admin: 11/19/19 22:19 Dose: 20 mg Documented by: Bacitracin (Bacitracin -) 1 applic TP BID [facility] Last Admin: 11/20/19 09:26 Dose: 1 applic Documented by: Budesonide/Formoterol Fumarate (Symbicort 160/4.5mcg -) 2 puff IH BID [facility] Last Admin: 11/20/19 09:26 Dose: 2 puff Documented by: Docusate Sodium (Colace -) 100 mg PO TID [facility] Last Admin: 11/20/19 15:45 Dose: Not Given Documented by: Furosemide (Lasix Injection -) 40 mg IVPUSH BIDLASIX [facility] Last Admin: 11/20/19 15:45 Dose: Not Given Documented by: Hydralazine HCl (Apresoline -) 25 mg PO BID [facility] Last Admin: 11/20/19 09:25 Dose: 25 mg Documented by: Meropenem 1 gm/ Dextrose 100 mls @ 200 mls/hr IVPB Q8H-IV [facility] Lactobacillus Acidophilus (Bacid -) 1 tab PO DAILY [facility] Last Admin: 11/20/19 09:25 Dose: 1 tab Documented by: Latanoprost (Xalatan 0.005% Eye Drops -) 1 drop OU HS [facility] Last Admin: 11/19/19 23:07 Dose: 1 drop Documented by: Morphine Sulfate (Morphine Sulfate) 1 mg IVPUSH Q4H PRN PRN Reason: PAIN LEVEL 7 - 10 Last Admin: 11/20/19 15:48 Dose: 1 mg Documented by: Pantoprazole Sodium (Protonix -) 40 mg PO DAILY [facility] Last Admin: 11/20/19 09:25 Dose: 40 mg Documented by: Potassium Chloride (K-Dur -) 40 meq PO AM [facility] Last Admin: 11/20/19 06:11 Dose: 40 meq Documented by: Terazosin HCl (Hytrin -) 2 mg PO HS [facility] Last Admin: 11/19/19 22:19 Dose: 2 mg Documented by: - Objective Vital Signs: Vital Signs Temperature 97.9 F 11/20/19 15:15 Pulse Rate 58 L 11/20/19 15:15 Respiratory Rate 11/20/19 15:15 Blood Pressure 153/67 11/20/19 15:15 O2 Sat by Pulse Oximetry (%) 97 11/20/19 09:00 Constitutional: Yes: No Distress, Calm Eyes: Yes: Conjunctiva Clear Cardiovascular: Yes: Regular Rate and Rhythm Respiratory: Yes: Regular Gastrointestinal: Yes: Normal Bowel Sounds, Soft Genitourinary: Yes: [place] Present Extremities: Yes: Erythema (b/l LE erythema, edema improving, +tenderness in RLE, ulcers dry, no oozing noted) Edema: LLE: 1+, RLE: 1+ Integumentary: Yes: Bruising (Lt hip) Neurological: Yes: Alert Labs: CBC, BMP 11/20/19 08:20 11/20/19 08:20 INR, PTT INR 2.25 (0.83-1.09) H 11/19/19 09:05 Microbiology 11/18/19 15:20 Blood - Peripheral Venous Blood Culture - Preliminary NO GROWTH OBTAINED AFTER 48 HOURS, INCUBATION TO CONTINUE FOR 3 DAYS. 11/18/19 14:50 Blood - Peripheral Venous Blood Culture - Preliminary NO GROWTH OBTAINED AFTER 48 HOURS, INCUBATION TO CONTINUE FOR 3 DAYS. 11/18/19 19:00 Calf - Right Medial Gram Stain - Final 11/18/19 19:00 Calf - Right Medial Wound Culture - Preliminary Non Lactose Fermenting Gnb Problem List - Problems (1) Bilateral lower extremity edema Code(s): R60.0 - LOCALIZED EDEMA (2) Cellulitis Code(s): L03.90 - CELLULITIS, UNSPECIFIED (3) Anemia Code(s): D64.9 - ANEMIA, UNSPECIFIED (4) CAD (coronary artery disease) Code(s): I25.10 - ATHSCL HEART DISEASE OF [place] CORONARY ARTERY W/O ANG PCTRS (5) COPD (chronic obstructive pulmonary disease) Code(s): J44.9 - CHRONIC OBSTRUCTIVE PULMONARY DISEASE, UNSPECIFIED (6) Chronic renal insufficiency Code(s): N18.9 - CHRONIC KIDNEY DISEASE, UNSPECIFIED (7) History of aortic valve replacement with bioprosthetic valve Code(s): Z98.890 - OTHER SPECIFIED POSTPROCEDURAL STATES; Z95.3 - PRESENCE OF XENOGENIC HEART VALVE (8) Hypertension Code(s): I10 - ESSENTIAL (PRIMARY) HYPERTENSION (9) Peripheral vascular disease Code(s): I73.9 - PERIPHERAL VASCULAR DISEASE, UNSPECIFIED (10) TIA (transient ischemic attack) Code(s): G45.9 - TRANSIENT CEREBRAL ISCHEMIC ATTACK, UNSPECIFIED (11) Venous stasis Code(s): I87.8 - OTHER SPECIFIED DISORDERS OF VEINS (12) Wound of lower extremity Code(s): S81.809A - UNSPECIFIED OPEN WOUND, UNSPECIFIED LOWER LEG, INIT ENCNTR (13) Thrombocytopenia Code(s): D69.6 - THROMBOCYTOPENIA, UNSPECIFIED (14) Status post fall Code(s): Z91.81 - HISTORY OF FALLING Assessment/Plan 89 y.o. male with PMH of CAD, CABG, AVR, COPD O2 dependent, OM, TIA, CKD, PAD, LE cellulitis/LLE ulcer infection, s/p recent course of Meropenem and completed Linezolid as outpatient presents with c/o severe pain in RLE , b/l Hips, Rt side of head, Rt shoulder and reports recent drainage from LLE. As per pt, 2 days after his hospital discharge he fell resulting in swelling of Rt side of his head, bruising his left hip, and severe pain in RLE and Rt shoulder s/p Fall RLE pain - ? cellulitis Shoulder pain Hip pain Hx of recent LLE cellulitis/ulcer infection Thrombocytopenia Anemia - receiving PRBC transfusion CKD CAD s/p CABG COPD CKD PAD s/p AVR -- improved LLE cellulitis since last admission -- wound culture of previous RLE drainage with few GNR growth, organism pending. Will start Meropenem for now - no drainage noted. -- blood cultures no growth so far -- thrombocytopenia - unclear etiology, monitor closely -- Xrays done of hips/Rt shoulder on 11/16/19, prior to admission without obvious fracture/dislocation, consider Xray of RLE or further imaging if pain persists -- vitals currently stable/afebrile, fully alert/responsive -- pain control
[2019-11-20] MEDS ORDERED: ERTAPENEM SODIUM 0.5 GM in SODIUM CHLORIDE 50 ML IVPB SCH (18:30)
[2019-11-20] MEDS: MEROPENEM 1 GM in DEXTROSE 5%-WATER 100 ML IVPB SCH (19:00)
[2019-11-20] MEDS ORDERED: DEXTROSE 5%-WATER 100 ML IVPB ONE (19:44)
[2019-11-20] MEDS ORDERED: MEROPENEM 1 GM VIAL (RESTRICTED TO ID) IVPB ONE (19:44)
[2019-11-20] MEDS: LATANOPROST 0.005% OPHTH SOLN 2.5ML BOTTLE OU SCH (22:07)
[2019-11-20] MEDS: ATORVASTATIN CA 20 MG TABLET (FP) PO SCH (22:08)
[2019-11-20] MEDS: TERAZOSIN HCL 1 MG CAPSULE PO SCH (22:21)
[2019-11-21] MEDS ORDERED: MEROPENEM 1 GM VIAL (RESTRICTED TO ID) IVPB ONE ×2 (05:26→18:44)
[2019-11-21] MEDS ORDERED: DEXTROSE 5%-WATER 100 ML IVPB ONE ×2 (05:26→18:44)
[2019-11-21] MEDS: DOCUSATE SODIUM 100 MG CAPSULE (FP) PO SCH ×3 (05:46→21:23)
[2019-11-21] MEDS: MEROPENEM 1 GM in DEXTROSE 5%-WATER 100 ML IVPB SCH ×2 (05:46→18:51)
[2019-11-21] MEDS: FUROSEMIDE 40 MG/4 ML INJECTABLE VIAL IVPUSH SCH ×2 (05:46→14:48)
[2019-11-21] MEDS: POTASSIUM CHLORIDE TABS 20 MEQ TABLET.ER (FP) PO SCH (06:04)
[2019-11-21] MEDS: ALBUTEROL SO4 2.5/IPRATROPIUM 0.5 INH SOL 3 ML VIAL.NEB. NEB SCH ×4 (08:00→20:35)
[2019-11-21] MEDS: hydrALAZINE HCL 25 MG TABLET (FP) PO SCH ×2 (11:18→21:23)
[2019-11-21] MEDS: LACTOBACILLUS ACIDOPHILUS 1 TABLET PO SCH (11:18)
[2019-11-21] MEDS: BACITRACIN 15 GM TUBE TOPICAL OINTMENT TP SCH ×2 (11:18→21:25)
[2019-11-21] MEDS: BUDESONIDE/FORMETEROL FUMARATE 160/4.5 mcg INHALER IH SCH ×2 (11:18→21:26)
[2019-11-21] MEDS: MORPHINE SULFATE 2 MG/ML VIAL IVPUSH PRN (11:18)
[2019-11-21] MEDS: PANTOPRAZOLE 40 MG TABLET PO SCH (11:18)
[2019-11-21] MEDS: ATENOLOL 25 MG TABLET (FP) PO SCH ×2 (11:18→21:23)
[2019-11-21] MEDS: predniSONE 10 MG TABLET (UD) PO SCH (12:35)
[2019-11-21] MEDS: ACETAMINOPHEN 325 MG TABLET (FP) PO PRN (12:35)
[2019-11-21 12:37] LABS: BASO % 0.4 % (0-2.0); HEMATOCRIT 25.2 % (35.4-49); HEMOGLOBIN 8.3 GM/dL (11.7-16.9); LYMPH % 7.7 % (8-40); MCH 28.3 pg (25.7-33.7); MCHC 33.1 g/dl (32.0-35.9); MEAN CELL VOLUME 85.5 fl (80-96); MEAN PLT VOLUME 9.5 fl (7.5-11.1); MONO % 12.1 % (3.8-10.2); NEUT % 77.8 % (42.8-82.8); PLATELET COUNT 68 K/MM3 (134-434); RBC 2.94 M/mm3 (4.00-5.60); RDW 17.6 % (11.9-15.9); WHITE BLOOD COUNT 5.5 K/mm3 (4.0-10.0)
--- NOTE | 2019-11-21 12:39 | PN ---
Progress Note, Physician History of Present Illness: still legs very tender - Current Medication List Current Medications: Active Medications Acetaminophen (Tylenol -) 650 mg PO Q6H PRN PRN Reason: PAIN LEVEL 1-5 Last Admin: 11/20/19 15:47 Dose: 650 mg Documented by: Albuterol/Ipratropium (Duoneb -) 1 amp NEB RQID [facility] Last Admin: 11/21/19 11:45 Dose: 1 amp Documented by: Atenolol (Tenormin -) 25 mg PO BID [facility] Last Admin: 11/21/19 11:18 Dose: 25 mg Documented by: Atorvastatin Calcium (Lipitor -) 20 mg PO [facility] Last Admin: 11/20/19 22:08 Dose: 20 mg Documented by: Bacitracin (Bacitracin -) 1 applic TP BID [facility] Last Admin: 11/21/19 11:18 Dose: 1 applic Documented by: Budesonide/Formoterol Fumarate (Symbicort 160/4.5mcg -) 2 puff IH BID [facility] Last Admin: 11/21/19 11:18 Dose: 2 puff Documented by: Docusate Sodium (Colace -) 100 mg PO TID [facility] Last Admin: 11/21/19 05:46 Dose: 100 mg Documented by: Furosemide (Lasix Injection -) 40 mg IVPUSH BIDLASIX [facility] Last Admin: 11/21/19 05:46 Dose: 40 mg Documented by: Hydralazine HCl (Apresoline -) 25 mg PO BID [facility] Last Admin: 11/21/19 11:18 Dose: 25 mg Documented by: Meropenem 1 gm/ Dextrose 100 mls @ 200 mls/hr IVPB Q12H [facility] Last Admin: 11/21/19 05:46 Dose: 200 mls/hr Documented by: Lactobacillus Acidophilus (Bacid -) 1 tab PO DAILY [facility] Last Admin: 11/21/19 11:18 Dose: 1 tab Documented by: Latanoprost (Xalatan 0.005% Eye Drops -) 1 drop OU [facility] Last Admin: 11/20/19 22:07 Dose: 1 drop Documented by: Morphine Sulfate (Morphine Sulfate) 1 mg IVPUSH Q4H PRN PRN Reason: PAIN LEVEL 7 - 10 Last Admin: 11/21/19 11:18 Dose: 1 mg Documented by: Pantoprazole Sodium (Protonix -) 40 mg PO DAILY [facility] Last Admin: 11/21/19 11:18 Dose: 40 mg Documented by: Potassium Chloride (K-Dur -) 40 meq PO AM [facility] Last Admin: 11/21/19 06:04 Dose: 40 meq Documented by: Prednisone (Deltasone -) 30 mg PO DAILY [facility] Stop: 11/23/19 10:01 Terazosin HCl (Hytrin -) 2 mg PO HS [facility] Last Admin: 11/20/19 22:21 Dose: 2 mg Documented by: - Objective Vital Signs: Vital Signs Temperature 98.1 F 11/21/19 06:00 Pulse Rate 74 11/21/19 08:00 Respiratory Rate 20 11/21/19 06:00 Blood Pressure 148/67 11/21/19 06:00 O2 Sat by Pulse Oximetry (%) 96 11/21/19 08:00 Constitutional: Yes: Calm, Mild Distress Neck: Yes: Supple Cardiovascular: Yes: Regular Rate and Rhythm Respiratory: Yes: Regular, CTA Bilaterally Gastrointestinal: Yes: Normal Bowel Sounds, Soft Musculoskeletal: Yes: WNL Extremities: Yes: Erythema, Other (tenderness) Integumentary: Yes: Erythema Wound/Incision: Yes: Other Neurological: Yes: Alert, Oriented Psychiatric: Yes: Alert, Oriented Labs: INR, PTT INR 2.25 (0.83-1.09) H 11/19/19 09:05 Assessment/Plan Problem List - Problems (1) Bilateral lower extremity edema Code(s): R60.0 - LOCALIZED EDEMA (2) Cellulitis Code(s): L03.90 - CELLULITIS, UNSPECIFIED (3) Anemia Code(s): D64.9 - ANEMIA, UNSPECIFIED (4) CAD (coronary artery disease) Code(s): I25.10 - ATHSCL HEART DISEASE OF [place] CORONARY ARTERY W/O ANG PCTRS (5) COPD (chronic obstructive pulmonary disease) Code(s): J44.9 - CHRONIC OBSTRUCTIVE PULMONARY DISEASE, UNSPECIFIED (6) Chronic renal insufficiency Code(s): N18.9 - CHRONIC KIDNEY DISEASE, UNSPECIFIED (7) History of aortic valve replacement with bioprosthetic valve Code(s): Z98.890 - OTHER SPECIFIED POSTPROCEDURAL STATES; Z95.3 - PRESENCE OF XENOGENIC HEART VALVE (8) Hypertension Code(s): I10 - ESSENTIAL (PRIMARY) HYPERTENSION (9) Peripheral vascular disease Code(s): I73.9 - PERIPHERAL VASCULAR DISEASE, UNSPECIFIED (10) TIA (transient ischemic attack) Code(s): G45.9 - TRANSIENT CEREBRAL ISCHEMIC ATTACK, UNSPECIFIED (11) Venous stasis Code(s): I87.8 - OTHER SPECIFIED DISORDERS OF VEINS (12) Wound of lower extremity Code(s): S81.809A - UNSPECIFIED OPEN WOUND, UNSPECIFIED LOWER LEG, INIT ENCNTR (13) Thrombocytopenia Code(s): D69.6 - THROMBOCYTOPENIA, UNSPECIFIED (14) Status post fall Code(s): Z91.81 - HISTORY OF FALLING Assessment/Plan 89 y.o. male with PMH of CAD, CABG, AVR, COPD O2 dependent, OM, TIA, CKD, PAD, LE cellulitis/LLE ulcer infection, s/p recent course of Meropenem and completed Linezolid as outpatient presents with c/o severe pain in RLE , b/l Hips, Rt side of head, Rt shoulder and reports recent drainage from LLE. As per pt, 2 days after his hospital discharge he fell resulting in swelling of Rt side of his head, bruising his left hip, and severe pain in RLE and Rt shoulder s/p Fall RLE pain - ? cellulitis Shoulder pain Hip pain Hx of recent LLE cellulitis/ulcer infection Thrombocytopenia Anemia - receiving PRBC transfusion CKD CAD s/p CABG COPD CKD PAD s/p AVR plan continue current mgmt abx elevation of the leg rest as per the team
[2019-11-21] MEDS ORDERED: SENNOSIDES 8.6MG TABLET (FP) PO PRN (12:58)
[2019-11-21] MEDS ORDERED: LIDOCAINE HCL 5% TOP OINTMENT 50 GM TUBE TP PRN (13:00)
--- NOTE | 2019-11-21 13:01 | PN ---
Progress Note, Physician Chief Complaint: BLLE cellulitis Urinary retention History of Present Illness: NAD c/o RLE pain Given morphine 1 mg with no relief - Current Medication List Current Medications: Active Medications Acetaminophen (Tylenol -) 650 mg PO Q6H PRN PRN Reason: PAIN LEVEL 1-5 Last Admin: 11/21/19 12:35 Dose: 650 mg Documented by: Albuterol/Ipratropium (Duoneb -) 1 amp NEB RQID REPLACED BY [facility] Last Admin: 11/21/19 11:45 Dose: 1 amp Documented by: Atenolol (Tenormin -) 25 mg PO BID REPLACED BY [facility] Last Admin: 11/21/19 11:18 Dose: 25 mg Documented by: Atorvastatin Calcium (Lipitor -) 20 mg PO [facility] Last Admin: 11/20/19 22:08 Dose: 20 mg Documented by: Bacitracin (Bacitracin -) 1 applic TP BID REPLACED BY [facility] Last Admin: 11/21/19 11:18 Dose: 1 applic Documented by: Budesonide/Formoterol Fumarate (Symbicort 160/4.5mcg -) 2 puff IH BID REPLACED BY [facility] Last Admin: 11/21/19 11:18 Dose: 2 puff Documented by: Docusate Sodium (Colace -) 100 mg PO TID REPLACED BY [facility] Last Admin: 11/21/19 05:46 Dose: 100 mg Documented by: Furosemide (Lasix Injection -) 40 mg IVPUSH BIDLASIX REPLACED BY [facility] Last Admin: 11/21/19 05:46 Dose: 40 mg Documented by: Hydralazine HCl (Apresoline -) 25 mg PO BID REPLACED BY [facility] Last Admin: 11/21/19 11:18 Dose: 25 mg Documented by: Meropenem 1 gm/ Dextrose 100 mls @ 200 mls/hr IVPB Q12H REPLACED BY [facility] Last Admin: 11/21/19 05:46 Dose: 200 mls/hr Documented by: Lactobacillus Acidophilus (Bacid -) 1 tab PO DAILY REPLACED BY [facility] Last Admin: 11/21/19 11:18 Dose: 1 tab Documented by: Latanoprost (Xalatan 0.005% Eye Drops -) 1 drop OU HS REPLACED BY [facility] Last Admin: 11/20/19 22:07 Dose: 1 drop Documented by: Morphine Sulfate (Morphine Sulfate) 1 mg IVPUSH Q4H PRN PRN Reason: PAIN LEVEL 7 - 10 Last Admin: 11/21/19 11:18 Dose: 1 mg Documented by: Pantoprazole Sodium (Protonix -) 40 mg PO DAILY REPLACED BY [facility] Last Admin: 11/21/19 11:18 Dose: 40 mg Documented by: Potassium Chloride (K-Dur -) 40 meq PO AM REPLACED BY [facility] Last Admin: 11/21/19 06:04 Dose: 40 meq Documented by: Prednisone (Deltasone -) 30 mg PO DAILY REPLACED BY [facility] Stop: 11/23/19 10:01 Last Admin: 11/21/19 12:35 Dose: 30 mg Documented by: Terazosin HCl (Hytrin -) 2 mg PO HS REPLACED BY [facility] Last Admin: 11/20/19 22:21 Dose: 2 mg Documented by: - Objective Vital Signs: Vital Signs Temperature 98.1 F 11/21/19 06:00 Pulse Rate 74 11/21/19 08:00 Respiratory Rate 20 11/21/19 06:00 Blood Pressure 148/67 11/21/19 06:00 O2 Sat by Pulse Oximetry (%) 96 11/21/19 08:00 Constitutional: Yes: Well Nourished, No Distress, Calm Cardiovascular: Yes: Regular Rate and Rhythm Respiratory: Yes: Regular, CTA Bilaterally Gastrointestinal: Yes: Normal Bowel Sounds, Soft, Abdomen, Obese Genitourinary: Yes: Russo Present Musculoskeletal: Yes: Muscle Weakness Extremities: Yes: Erythema (BLLE) Edema: Yes Peripheral Pulses WNL: Yes Wound/Incision: Yes: Reddened (BLLE) Neurological: Yes: Alert, Oriented Psychiatric: Yes: Alert, Oriented Labs: CBC, BMP 11/21/19 12:00 INR, PTT INR 2.25 (0.83-1.09) H 11/19/19 09:05 Problem List - Problems (1) CKD (chronic kidney disease) Assessment/Plan: -Nephrology on board -Monitor Cr trend Problems reviewed: Yes Code(s): N18.9 - CHRONIC KIDNEY DISEASE, UNSPECIFIED (2) Urinary retention Assessment/Plan: -Russo catheter -On Terazosin -Urology consult Problems reviewed: Yes Code(s): R33.9 - RETENTION OF URINE, UNSPECIFIED (3) Bilateral lower extremity edema Assessment/Plan: -Furosemide 40 mg IVP BID -Elevate BLLE Problems reviewed: Yes Code(s): R60.0 - LOCALIZED EDEMA (4) Cellulitis Assessment/Plan: -ID consult -IV meropenem -Vascular surgery consult -Pain management: Acetaminophen 1000 mg po Q6H PRN for pain 1-3 Tramadol 50 mg po Q6H PRN for pain 4-6 Oxycodone 5 mg po Q4H PRN for pain 7-10 Problems reviewed: Yes Code(s): L03.90 - CELLULITIS, UNSPECIFIED (5) Anemia Assessment/Plan: -CKD + AMBIKA -Injectafer x 1 -Oral Iron polysaccharide daily -monitor trend -recent stool ob negative Problems reviewed: Yes Code(s): D64.9 - ANEMIA, UNSPECIFIED (6) Atrial fibrillation Assessment/Plan: -Continue Warfarin -Monitor daily INR Problems reviewed: Yes Code(s): I48.91 - UNSPECIFIED ATRIAL FIBRILLATION Qualifiers: Atrial fibrillation type: chronic Assessment/Plan See problem list
[2019-11-21 13:07] LABS: ALBUMIN 2.5 g/dl (3.4-5.0); BILIRUBIN,TOTAL 0.8 mg/dL (0.2-1); BLOOD UREA NITROGEN 59.4 mg/dL (7-18); CALCIUM 8.4 mg/dL (8.5-10.1); CREATININE 2.2 mg/dL (0.55-1.3); POTASSIUM 4.2 mmol/L (3.5-5.1); TOT PROT 6.5 g/dl (6.4-8.2); URIC ACID 11.4 mg/dL (2.6-7.2)
--- NOTE | 2019-11-21 13:24 | PN ---
Progress Note (short form) - Note Progress Note: Breathing continues to improve. No CP or SOB. No acute events overnight. Intake & Output 11/18/19 11/19/19 11/20/19 11/21/19 23:59 23:59 23:59 23:59 Intake Total 150 1220 1850 300 Output Total 100 1600 2000 500 Balance 50 -380 -150 -200 Weight 171 lb 171 lb 171 lb 9 oz 166 lb 5 oz Last Vital Signs Temp Pulse Resp BP Pulse Ox 98.1 F 74 20 148/67 96 11/21/19 06:00 11/21/19 08:00 11/21/19 06:00 11/21/19 06:00 11/21/19 08:00 Active Medications Acetaminophen (Tylenol -) 1,000 mg PO Q6H PRN PRN Reason: PAIN Albuterol/Ipratropium (Duoneb -) 1 amp NEB RQID [facility] Last Admin: 11/21/19 11:45 Dose: 1 amp Documented by: Atenolol (Tenormin -) 25 mg PO BID [facility] Last Admin: 11/21/19 11:18 Dose: 25 mg Documented by: Atorvastatin Calcium (Lipitor -) 20 mg PO HS [facility] Last Admin: 11/20/19 22:08 Dose: 20 mg Documented by: Bacitracin (Bacitracin -) 1 applic TP BID [facility] Last Admin: 11/21/19 11:18 Dose: 1 applic Documented by: Budesonide/Formoterol Fumarate (Symbicort 160/4.5mcg -) 2 puff IH BID [facility] Last Admin: 11/21/19 11:18 Dose: 2 puff Documented by: Docusate Sodium (Colace -) 100 mg PO TID [facility] Last Admin: 11/21/19 05:46 Dose: 100 mg Documented by: Furosemide (Lasix Injection -) 40 mg IVPUSH BIDLASIX [facility] Last Admin: 11/21/19 05:46 Dose: 40 mg Documented by: Gabapentin (Neurontin -) 300 mg PO TID [facility] Hydralazine HCl (Apresoline -) 25 mg PO BID [facility] Last Admin: 11/21/19 11:18 Dose: 25 mg Documented by: Meropenem 1 gm/ Dextrose 100 mls @ 200 mls/hr IVPB Q12H [facility] Last Admin: 07/06/20 05:46 Dose: 200 mls/hr Documented by: Lactobacillus Acidophilus (Bacid -) 1 tab PO DAILY [facility] Last Admin: 11/21/19 11:18 Dose: 1 tab Documented by: Latanoprost (Xalatan 0.005% Eye Drops -) 1 drop OU HS [facility] Last Admin: 11/20/19 22:07 Dose: 1 drop Documented by: Lidocaine HCl (Xylocaine 5% Top. Ointment) 1 applic TP BID PRN PRN Reason: BLLE pain Oxycodone HCl (Roxicodone -) 5 mg PO Q4H PRN PRN Reason: PAIN LEVEL 7 - 10 Pantoprazole Sodium (Protonix -) 40 mg PO DAILY [facility] Last Admin: 11/21/19 11:18 Dose: 40 mg Documented by: Polyethylene Glycol (Miralax (For Daily Use) -) 17 gm PO DAILY [facility] Potassium Chloride (K-Dur -) 40 meq PO AM [facility] Last Admin: 11/21/19 06:04 Dose: 40 meq Documented by: Prednisone (Deltasone -) 30 mg PO DAILY [facility] Stop: 11/23/19 10:01 Last Admin: 11/21/19 12:35 Dose: 30 mg Documented by: Senna (Senna -) 2 tab PO HS PRN PRN Reason: CONSTIPATION Terazosin HCl (Hytrin -) 2 mg PO HS [facility] Last Admin: 11/20/19 22:21 Dose: 2 mg Documented by: Tramadol HCl (Ultram -) 50 mg PO Q6H PRN PRN Reason: PAIN LEVEL 4 - 6 Warfarin Sodium (Coumadin -) 2 mg PO DAILY@1800 [facility] Gen: NAD at rest Heart: RRR Lung: decreased breath sounds at the bases Abd: soft, nontender Ext: no edema Laboratory Results - last 24 hr 11/18/19 11/20/19 11/20/19 23:38 08:20 12:35 WBC RBC Hgb Hct MCV MCH MCHC RDW Plt Count MPV Absolute Neuts (auto) Neutrophils % Lymphocytes % Monocytes % Eosinophils % Basophils % Nucleated RBC % Sodium 139 Potassium 4.5 Chloride 104 Carbon Dioxide 26 Anion Gap 9 BUN 65.8 H Creatinine 2.2 H Est GFR (CKD-EPI)AfAm 29.68 Est GFR (CKD-EPI)NonAf 25.61 Random Glucose 95 Uric Acid Calcium 8.6 Iron 18 L TIBC 177 L Iron Saturation 10 L Unsaturated IBC 159 L Ferritin 566.4 H Total Bilirubin 0.7 AST 23 ALT 24 Alkaline Phosphatase 75 Total Protein 6.4 Albumin 2.5 L COVID-19 (ERIC) Not detected Blood Type O POSITIVE Antibody Screen Negative Crossmatch See Detail 11/21/19 11/21/19 12:00 12:00 WBC 5.5 RBC 2.94 L Hgb 8.3 L Hct 25.2 L MCV 85.5 MCH 28.3 MCHC 33.1 RDW 17.6 H Plt Count 68 L D MPV 9.5 Absolute Neuts (auto) 4.3 Neutrophils % 77.8 Lymphocytes % 7.7 L D Monocytes % 12.1 H Eosinophils % 2.0 Basophils % 0.4 Nucleated RBC % 0 Sodium 139 Potassium 4.2 Chloride 104 Carbon Dioxide 28 Anion Gap 7 L BUN 59.4 H Creatinine 2.2 H Est GFR (CKD-EPI)AfAm 29.68 Est GFR (CKD-EPI)NonAf 25.61 Random Glucose 102 Uric Acid 11.4 H Calcium 8.4 L Iron TIBC Iron Saturation Unsaturated IBC Ferritin Total Bilirubin 0.8 AST 22 ALT 23 Alkaline Phosphatase 78 Total Protein 6.5 Albumin 2.5 L COVID-19 (ERIC) Blood Type Antibody Screen Crossmatch A/P Leg Cellulitis/Ulcer Infection Urinary Retention s/p fox placement CKD Atelectasis COPD : Appears at baseline Chronic Hypoxic Respiratory Failure CAD s/p CABG h/o MVR LV Diastolic Dysfunction Pulmonary HTN PAD h/o DVT Shortness of breath likely combination of anxiety from urinary retention and atelectasis from abdominal distention - s/p fox catheter placement - inhaled bronchodilators - O2 to keep SpO2 >90% - continue anticoagulation - antibiotics per ID Dr Johnson
--- NOTE | 2019-11-21 13:30 | PN ---
Progress Note, Physician Chief Complaint: Leg swelling History of Present Illness: Seen and examined at the bedside awake and alert complains of severe pain in right heel no sob, cp, fever, chills making urine leg swelling improved - Current Medication List Current Medications: Active Medications Acetaminophen (Tylenol -) 1,000 mg PO Q6H PRN PRN Reason: PAIN Albuterol/Ipratropium (Duoneb -) 1 amp NEB RQID [facility] Last Admin: 11/21/19 11:45 Dose: 1 amp Documented by: Atenolol (Tenormin -) 25 mg PO BID [facility] Last Admin: 11/21/19 11:18 Dose: 25 mg Documented by: Atorvastatin Calcium (Lipitor -) 20 mg PO HS [facility] Last Admin: 11/20/19 22:08 Dose: 20 mg Documented by: Bacitracin (Bacitracin -) 1 applic TP BID [facility] Last Admin: 11/21/19 11:18 Dose: 1 applic Documented by: Budesonide/Formoterol Fumarate (Symbicort 160/4.5mcg -) 2 puff IH BID [facility] Last Admin: 11/21/19 11:18 Dose: 2 puff Documented by: Docusate Sodium (Colace -) 100 mg PO TID [facility] Last Admin: 11/21/19 05:46 Dose: 100 mg Documented by: Furosemide (Lasix Injection -) 40 mg IVPUSH BIDLASIX [facility] Last Admin: 11/21/19 05:46 Dose: 40 mg Documented by: Gabapentin (Neurontin -) 300 mg PO TID [facility] Hydralazine HCl (Apresoline -) 25 mg PO BID [facility] Last Admin: 11/21/19 11:18 Dose: 25 mg Documented by: Meropenem 1 gm/ Dextrose 100 mls @ 200 mls/hr IVPB Q12H [facility] Last Admin: 11/21/19 05:46 Dose: 200 mls/hr Documented by: Lactobacillus Acidophilus (Bacid -) 1 tab PO DAILY [facility] Last Admin: 11/21/19 11:18 Dose: 1 tab Documented by: Latanoprost (Xalatan 0.005% Eye Drops -) 1 drop OU HS [facility] Last Admin: 11/20/19 22:07 Dose: 1 drop Documented by: Lidocaine HCl (Xylocaine 5% Top. Ointment) 1 applic TP BID PRN PRN Reason: BLLE pain Oxycodone HCl (Roxicodone -) 5 mg PO Q4H PRN PRN Reason: PAIN LEVEL 7 - 10 Pantoprazole Sodium (Protonix -) 40 mg PO DAILY [facility] Last Admin: 11/21/19 11:18 Dose: 40 mg Documented by: Polyethylene Glycol (Miralax (For Daily Use) -) 17 gm PO DAILY [facility] Potassium Chloride (K-Dur -) 40 meq PO AM [facility] Last Admin: 11/21/19 06:04 Dose: 40 meq Documented by: Prednisone (Deltasone -) 30 mg PO DAILY [facility] Stop: 11/23/19 10:01 Last Admin: 11/21/19 12:35 Dose: 30 mg Documented by: Senna (Senna -) 2 tab PO HS PRN PRN Reason: CONSTIPATION Terazosin HCl (Hytrin -) 2 mg PO HS [facility] Last Admin: 11/20/19 22:21 Dose: 2 mg Documented by: Tramadol HCl (Ultram -) 50 mg PO Q6H PRN PRN Reason: PAIN LEVEL 4 - 6 Warfarin Sodium (Coumadin -) 2 mg PO DAILY@1800 [facility] - Objective Vital Signs: Vital Signs Temperature 98.1 F 11/21/19 06:00 Pulse Rate 74 11/21/19 08:00 Respiratory Rate 20 11/21/19 06:00 Blood Pressure 148/67 11/21/19 06:00 O2 Sat by Pulse Oximetry (%) 96 11/21/19 08:00 Constitutional: Yes: No Distress Eyes: Yes: Conjunctiva Clear HENT: Yes: Atraumatic Neck: Yes: Supple Respiratory: Yes: Regular Gastrointestinal: Yes: Soft Extremities: Yes: Erythema, Other (heel pain). No: Cyanosis Edema: Yes Edema: LLE: Trace, RLE: Trace Neurological: Yes: Alert, Oriented Labs: CBC, BMP 11/21/19 12:00 11/21/19 12:00 INR, PTT INR 2.25 (0.83-1.09) H 11/19/19 09:05 Assessment/Plan 88 year old [place] male with history of CKD, CHF, COPD, hypertension, hyperlipidemia, DVT, CAD s/p CABG who presented to the ED with worsening leg swelling. 1. CKD stage 4 2. LE edema 3. Heart failure 4. Recent LE cellulitis 5. Chronic anemia 6. Hypertension 7. CAD s/p CABG 8. Heel pain with suspcion of Gout 9. Recent fall Renal function stable at this time Pt was was restarted on diuretics at the beginning of last week as an outpatient but swelling persisted Continue IV Lasix 40mg IV BID Trend renal function and electrolytes daily Trial of Prednisone 30mg Daily for possible gout in his heel check X-ray of heel and ankle CT head and right shoulder x-ray were negative in relation to fall he had as an outpatient. Ko Toth DO
[2019-11-21] MEDS: POLYETHYLENE GLYCOL 3350 119 GM BTL PO SCH (14:47)
[2019-11-21] MEDS: GABAPENTIN 300 MG CAPSULE PO SCH ×2 (14:48→21:22)
[2019-11-21] MEDS: oxyCODONE HCL 5 MG TABLET PO PRN (15:29)
[2019-11-21 17:31] LABS: INR 2.75 (0.83-1.09); PROTHROMBIN TIME (PATIENT) 32.8 SEC (9.7-13.0)
[2019-11-21] MEDS: WARFARIN NA 2 MG TABLET PO SCH (18:51)
[2019-11-21] MEDS ORDERED: FERRIC CARBOXYMALTOSE 750 MG in SODIUM CHLORIDE 250 ML IVPB ONE (19:00)
[2019-11-21] MEDS: ATORVASTATIN CA 20 MG TABLET (FP) PO SCH (21:23)
[2019-11-21] MEDS: TERAZOSIN HCL 1 MG CAPSULE PO SCH (21:24)
[2019-11-21] MEDS: LATANOPROST 0.005% OPHTH SOLN 2.5ML BOTTLE OU SCH (21:35)
[2019-11-22] MEDS: GABAPENTIN 300 MG CAPSULE PO SCH ×3 (06:14→21:21)
[2019-11-22] MEDS: DOCUSATE SODIUM 100 MG CAPSULE (FP) PO SCH ×3 (06:14→21:21)
[2019-11-22] MEDS: POTASSIUM CHLORIDE TABS 20 MEQ TABLET.ER (FP) PO SCH (06:15)
[2019-11-22] MEDS: FUROSEMIDE 40 MG/4 ML INJECTABLE VIAL IVPUSH SCH ×2 (06:15→13:07)
[2019-11-22] MEDS: MEROPENEM 1 GM in DEXTROSE 5%-WATER 100 ML IVPB SCH ×2 (06:28→17:16)
--- NOTE | 2019-11-22 07:36 | PN ---
Progress Note, Physician History of Present Illness: PULMONARY ALERT,FEELING BETTER,LESS DYSPNEIC,ON NASAL O2 - Current Medication List Current Medications: Active Medications Acetaminophen (Tylenol -) 1,000 mg PO Q6H PRN PRN Reason: PAIN Albuterol/Ipratropium (Duoneb -) 1 amp NEB RQID [facility] Last Admin: 11/21/19 20:35 Dose: 1 amp Documented by: Atenolol (Tenormin -) 25 mg PO BID [facility] Last Admin: 11/21/19 21:23 Dose: 25 mg Documented by: Atorvastatin Calcium (Lipitor -) 20 mg PO HS [facility] Last Admin: 11/21/19 21:23 Dose: 20 mg Documented by: Bacitracin (Bacitracin -) 1 applic TP BID [facility] Last Admin: 11/21/19 21:25 Dose: 1 applic Documented by: Budesonide/Formoterol Fumarate (Symbicort 160/4.5mcg -) 2 puff IH BID [facility] Last Admin: 11/21/19 21:26 Dose: 2 puff Documented by: Docusate Sodium (Colace -) 100 mg PO TID [facility] Last Admin: 11/22/19 06:14 Dose: 100 mg Documented by: Furosemide (Lasix Injection -) 40 mg IVPUSH BIDLASIX [facility] Last Admin: 11/22/19 06:15 Dose: 40 mg Documented by: Gabapentin (Neurontin -) 300 mg PO TID [facility] Last Admin: 11/22/19 06:14 Dose: 300 mg Documented by: Hydralazine HCl (Apresoline -) 25 mg PO BID [facility] Last Admin: 11/21/19 21:23 Dose: 25 mg Documented by: Meropenem 1 gm/ Dextrose 100 mls @ 200 mls/hr IVPB Q12H [facility] Last Admin: 11/22/19 06:28 Dose: 200 mls/hr Documented by: Lactobacillus Acidophilus (Bacid -) 1 tab PO DAILY [facility] Last Admin: 11/21/19 11:18 Dose: 1 tab Documented by: Latanoprost (Xalatan 0.005% Eye Drops -) 1 drop OU HS [facility] Last Admin: 11/21/19 21:35 Dose: 1 drop Documented by: Lidocaine HCl (Xylocaine 5% Top. Ointment) 1 applic TP BID PRN PRN Reason: BLLE pain Last Admin: 11/21/19 14:58 Dose: 1 applic Documented by: Oxycodone HCl (Roxicodone -) 5 mg PO Q4H PRN PRN Reason: PAIN LEVEL 7 - 10 Last Admin: 11/21/19 15:29 Dose: 5 mg Documented by: Pantoprazole Sodium (Protonix -) 40 mg PO DAILY [facility] Last Admin: 11/21/19 11:18 Dose: 40 mg Documented by: Polyethylene Glycol (Miralax (For Daily Use) -) 17 gm PO DAILY [facility] Last Admin: 11/21/19 14:47 Dose: 17 gm Documented by: Polysaccharide Iron Complex (Niferex-150 -) 150 mg PO DAILY [facility] Potassium Chloride (K-Dur -) 40 meq PO AM [facility] Last Admin: 11/22/19 06:15 Dose: 40 meq Documented by: Prednisone (Deltasone -) 30 mg PO DAILY [facility] Stop: 11/23/19 10:01 Last Admin: 11/21/19 12:35 Dose: 30 mg Documented by: Senna (Senna -) 2 tab PO HS PRN PRN Reason: CONSTIPATION Last Admin: 11/21/19 21:25 Dose: 2 tab Documented by: Terazosin HCl (Hytrin -) 2 mg PO HS [facility] Last Admin: 11/21/19 21:24 Dose: 2 mg Documented by: Tramadol HCl (Ultram -) 50 mg PO Q6H PRN PRN Reason: PAIN LEVEL 4 - 6 Warfarin Sodium (Coumadin -) 2 mg PO DAILY@1800 [facility] Last Admin: 11/21/19 18:51 Dose: 2 mg Documented by: - Objective Vital Signs: Vital Signs Temperature 97.3 F L 11/22/19 06:00 Pulse Rate 55 L 11/22/19 06:00 Respiratory Rate 20 11/22/19 06:00 Blood Pressure 145/68 11/22/19 06:00 O2 Sat by Pulse Oximetry (%) 97 11/21/19 21:00 Constitutional: Yes: Well Nourished, Calm Eyes: Yes: WNL HENT: Yes: WNL Neck: Yes: WNL Cardiovascular: Yes: Pulse Irregular, S1, S2, S3 Respiratory: Yes: Rales (FEW BIBASLAR RALES) Gastrointestinal: Yes: Normal Bowel Sounds, Soft Extremities: Yes: WNL Edema: No Labs: Problem List - Problems (1) CKD (chronic kidney disease) Code(s): N18.9 - CHRONIC KIDNEY DISEASE, UNSPECIFIED (2) Urinary retention Code(s): R33.9 - RETENTION OF URINE, UNSPECIFIED (3) Wound of lower extremity Code(s): S81.809A - UNSPECIFIED OPEN WOUND, UNSPECIFIED LOWER LEG, INIT ENCNTR (4) Acute on chronic diastolic (congestive) heart failure Code(s): I50.33 - ACUTE ON CHRONIC DIASTOLIC (CONGESTIVE) HEART FAILURE (5) Anemia Code(s): D64.9 - ANEMIA, UNSPECIFIED (6) Atrial fibrillation Code(s): I48.91 - UNSPECIFIED ATRIAL FIBRILLATION Qualifiers: Atrial fibrillation type: chronic (7) CAD (coronary artery disease) Code(s): I25.10 - ATHSCL HEART DISEASE OF [place] CORONARY ARTERY W/O ANG PCTRS (8) COPD (chronic obstructive pulmonary disease) Code(s): J44.9 - CHRONIC OBSTRUCTIVE PULMONARY DISEASE, UNSPECIFIED (9) History of aortic valve replacement with bioprosthetic valve Code(s): Z98.890 - OTHER SPECIFIED POSTPROCEDURAL STATES; Z95.3 - PRESENCE OF XENOGENIC HEART VALVE (10) PAD (peripheral artery disease) Code(s): I73.9 - PERIPHERAL VASCULAR DISEASE, UNSPECIFIED (11) S/P CABG x 2 Code(s): Z95.1 - PRESENCE OF AORTOCORONARY BYPASS GRAFT Assessment/Plan A/P Leg Cellulitis/Ulcer Infection Urinary Retention s/p fox placement CKD Atelectasis COPD Chronic Hypoxic Respiratory Failure CAD s/p CABG h/o MVR LV Diastolic Dysfunction Pulmonary HTN PAD h/o DVT - s/p fox catheter placement - inhaled bronchodilators - O2 to keep SpO2 >90% - continue anticoagulation - antibiotics per ID DR SINGH
[2019-11-22] MEDS: ALBUTEROL SO4 2.5/IPRATROPIUM 0.5 INH SOL 3 ML VIAL.NEB. NEB SCH ×4 (07:40→20:39)
[2019-11-22 07:52] LABS: BASO % 0.3 % (0-2.0); EOS % 0.4 % (0-4.5); HEMATOCRIT 26.1 % (35.4-49); HEMOGLOBIN 8.4 GM/dL (11.7-16.9); LYMPH % 6.3 % (8-40); MCH 28.2 pg (25.7-33.7); MCHC 32.3 g/dl (32.0-35.9); MEAN CELL VOLUME 87.4 fl (80-96); MEAN PLT VOLUME 9.5 fl (7.5-11.1); PLATELET COUNT 72 K/MM3 (134-434); RBC 2.98 M/mm3 (4.00-5.60); RDW 17.8 % (11.9-15.9); WHITE BLOOD COUNT 4.3 K/mm3 (4.0-10.0)
[2019-11-22 08:16] LABS: BLOOD UREA NITROGEN 63.6 mg/dL (7-18); CALCIUM 8.7 mg/dL (8.5-10.1); CREATININE 2.2 mg/dL (0.55-1.3); MAGNESIUM 2.2 mg/dL (1.8-2.4); PHOSPHOROUS 3.4 mg/dL (2.5-4.9); POTASSIUM 4.5 mmol/L (3.5-5.1)
[2019-11-22 08:46] LABS: INR 2.7 (0.83-1.09); PROTHROMBIN TIME (PATIENT) 32.2 SEC (9.7-13.0)
[2019-11-22] MEDS ORDERED: DEXTROSE 5%-WATER 100 ML IVPB ONE (09:32)
[2019-11-22] MEDS ORDERED: MEROPENEM 1 GM VIAL (RESTRICTED TO ID) IVPB ONE (09:32)
[2019-11-22] MEDS: hydrALAZINE HCL 25 MG TABLET (FP) PO SCH ×2 (09:47→21:21)
[2019-11-22] MEDS: predniSONE 10 MG TABLET (UD) PO SCH (09:47)
[2019-11-22] MEDS: LACTOBACILLUS ACIDOPHILUS 1 TABLET PO SCH (09:48)
[2019-11-22] MEDS: ATENOLOL 25 MG TABLET (FP) PO SCH ×2 (09:48→21:21)
[2019-11-22] MEDS: POLYETHYLENE GLYCOL 3350 119 GM BTL PO SCH (09:48)
[2019-11-22] MEDS: IRON POLYSACCHARIDES 150 MG CAPSULE PO SCH (09:48)
[2019-11-22] MEDS: BACITRACIN 15 GM TUBE TOPICAL OINTMENT TP SCH ×2 (09:48→21:37)
[2019-11-22] MEDS: BUDESONIDE/FORMETEROL FUMARATE 160/4.5 mcg INHALER IH SCH ×2 (09:49→21:37)
[2019-11-22] MEDS: PANTOPRAZOLE 40 MG TABLET PO SCH (09:49)
[2019-11-22] MEDS: oxyCODONE HCL 5 MG TABLET PO PRN (11:38)
[2019-11-22 12:24] LABS: PLATELET ESTIMATE DECREASED
--- NOTE | 2019-11-22 12:57 | PN ---
Progress Note, Physician History of Present Illness: stable legs starting to feel better - Current Medication List Current Medications: Active Medications Acetaminophen (Tylenol -) 1,000 mg PO Q6H PRN PRN Reason: PAIN Albuterol/Ipratropium (Duoneb -) 1 amp NEB RQID [facility] Last Admin: 11/22/19 11:37 Dose: 1 amp Documented by: Atenolol (Tenormin -) 25 mg PO BID [facility] Last Admin: 11/22/19 09:48 Dose: 25 mg Documented by: Atorvastatin Calcium (Lipitor -) 20 mg PO HS [facility] Last Admin: 11/21/19 21:23 Dose: 20 mg Documented by: Bacitracin (Bacitracin -) 1 applic TP BID [facility] Last Admin: 11/22/19 09:48 Dose: 1 applic Documented by: Budesonide/Formoterol Fumarate (Symbicort 160/4.5mcg -) 2 puff IH BID [facility] Last Admin: 11/22/19 09:49 Dose: 2 puff Documented by: Docusate Sodium (Colace -) 100 mg PO TID [facility] Last Admin: 11/22/19 06:14 Dose: 100 mg Documented by: Furosemide (Lasix Injection -) 40 mg IVPUSH BIDLASIX [facility] Last Admin: 11/22/19 06:15 Dose: 40 mg Documented by: Gabapentin (Neurontin -) 300 mg PO TID [facility] Last Admin: 11/22/19 06:14 Dose: 300 mg Documented by: Hydralazine HCl (Apresoline -) 25 mg PO BID [facility] Last Admin: 11/22/19 09:47 Dose: 25 mg Documented by: Meropenem 1 gm/ Dextrose 100 mls @ 200 mls/hr IVPB Q12H [facility] Last Admin: 11/22/19 06:28 Dose: 200 mls/hr Documented by: Lactobacillus Acidophilus (Bacid -) 1 tab PO DAILY [facility] Last Admin: 11/22/19 09:48 Dose: 1 tab Documented by: Latanoprost (Xalatan 0.005% Eye Drops -) 1 drop OU HS [facility] Last Admin: 11/21/19 21:35 Dose: 1 drop Documented by: Lidocaine HCl (Xylocaine 5% Top. Ointment) 1 applic TP BID PRN PRN Reason: BLLE pain Last Admin: 11/21/19 14:58 Dose: 1 applic Documented by: Oxycodone HCl (Roxicodone -) 5 mg PO Q4H PRN PRN Reason: PAIN LEVEL 7 - 10 Last Admin: 11/22/19 11:38 Dose: 5 mg Documented by: Pantoprazole Sodium (Protonix -) 40 mg PO DAILY [facility] Last Admin: 11/22/19 09:49 Dose: 40 mg Documented by: Polyethylene Glycol (Miralax (For Daily Use) -) 17 gm PO DAILY [facility] Last Admin: 11/22/19 09:48 Dose: 17 gm Documented by: Polysaccharide Iron Complex (Niferex-150 -) 150 mg PO DAILY [facility] Last Admin: 11/22/19 09:48 Dose: 150 mg Documented by: Potassium Chloride (K-Dur -) 40 meq PO AM [facility] Last Admin: 11/22/19 06:15 Dose: 40 meq Documented by: Prednisone (Deltasone -) 30 mg PO DAILY [facility] Stop: 11/23/19 10:01 Last Admin: 11/22/19 09:47 Dose: 30 mg Documented by: Senna (Senna -) 2 tab PO HS PRN PRN Reason: CONSTIPATION Last Admin: 11/21/19 21:25 Dose: 2 tab Documented by: Tamsulosin HCl (Flomax -) 0.4 mg PO DAILY@0830 [facility] Terazosin HCl (Hytrin -) 2 mg PO [facility] Last Admin: 11/21/19 21:24 Dose: 2 mg Documented by: Tramadol HCl (Ultram -) 50 mg PO Q6H PRN PRN Reason: PAIN LEVEL 4 - 6 Warfarin Sodium (Coumadin -) 2 mg PO DAILY@1800 [facility] Last Admin: 11/21/19 18:51 Dose: 2 mg Documented by: - Objective Vital Signs: Vital Signs Temperature 98 F 11/22/19 10:46 Pulse Rate 83 11/22/19 10:46 Respiratory Rate 20 11/22/19 10:46 Blood Pressure 143/77 11/22/19 10:46 O2 Sat by Pulse Oximetry (%) 98 11/22/19 09:00 Constitutional: Yes: No Distress, Calm Cardiovascular: Yes: S1, S2 Respiratory: Yes: Regular, CTA Bilaterally Gastrointestinal: Yes: Normal Bowel Sounds, Soft Musculoskeletal: Yes: WNL Extremities: Yes: Erythema (improving), Other Neurological: Yes: Alert, Oriented Psychiatric: Yes: Alert, Oriented Labs: CBC, BMP 11/22/19 06:40 11/22/19 06:40 INR, PTT INR 2.70 (0.83-1.09) H 11/22/19 06:40 Assessment/Plan Problem List - Problems (1) Bilateral lower extremity edema Code(s): R60.0 - LOCALIZED EDEMA (2) Cellulitis Code(s): L03.90 - CELLULITIS, UNSPECIFIED (3) Anemia Code(s): D64.9 - ANEMIA, UNSPECIFIED (4) CAD (coronary artery disease) Code(s): I25.10 - ATHSCL HEART DISEASE OF [place] CORONARY ARTERY W/O ANG PCTRS (5) COPD (chronic obstructive pulmonary disease) Code(s): J44.9 - CHRONIC OBSTRUCTIVE PULMONARY DISEASE, UNSPECIFIED (6) Chronic renal insufficiency Code(s): N18.9 - CHRONIC KIDNEY DISEASE, UNSPECIFIED (7) History of aortic valve replacement with bioprosthetic valve Code(s): Z98.890 - OTHER SPECIFIED POSTPROCEDURAL STATES; Z95.3 - PRESENCE OF XENOGENIC HEART VALVE (8) Hypertension Code(s): I10 - ESSENTIAL (PRIMARY) HYPERTENSION (9) Peripheral vascular disease Code(s): I73.9 - PERIPHERAL VASCULAR DISEASE, UNSPECIFIED (10) TIA (transient ischemic attack) Code(s): G45.9 - TRANSIENT CEREBRAL ISCHEMIC ATTACK, UNSPECIFIED (11) Venous stasis Code(s): I87.8 - OTHER SPECIFIED DISORDERS OF VEINS (12) Wound of lower extremity Code(s): S81.809A - UNSPECIFIED OPEN WOUND, UNSPECIFIED LOWER LEG, INIT ENCNTR (13) Thrombocytopenia Code(s): D69.6 - THROMBOCYTOPENIA, UNSPECIFIED (14) Status post fall Code(s): Z91.81 - HISTORY OF FALLING Assessment/Plan 89 y.o. male with PMH of CAD, CABG, AVR, COPD O2 dependent, OM, TIA, CKD, PAD, LE cellulitis/LLE ulcer infection, s/p recent course of Meropenem and completed Linezolid as outpatient presents with c/o severe pain in RLE , b/l Hips, Rt side of head, Rt shoulder and reports recent drainage from LLE. As per pt, 2 days after his hospital discharge he fell resulting in swelling of Rt side of his head, bruising his left hip, and severe pain in RLE and Rt shoulder s/p Fall RLE pain - ? cellulitis Shoulder pain Hip pain Hx of recent LLE cellulitis/ulcer infection Thrombocytopenia Anemia - receiving PRBC transfusion CKD CAD s/p CABG COPD CKD PAD s/p AVR plan continue current mgmt abx elevation of the leg rest as per the team wound care
[2019-11-22] MEDS: TAMSULOSIN HCL 0.4 MG CAP PO SCH (13:07)
[2019-11-22 15:36] VITALS: BMI 30.2
--- NOTE | 2019-11-22 15:41 | PN ---
Progress Note, Physician Chief Complaint: BLLE cellulitis Urinary retention History of Present Illness: NAD, RLE pain much improved C/O constipation - Current Medication List Current Medications: Active Medications Acetaminophen (Tylenol -) 1,000 mg PO Q6H PRN PRN Reason: PAIN Albuterol/Ipratropium (Duoneb -) 1 amp NEB RQID [facility] Last Admin: 11/22/19 11:37 Dose: 1 amp Documented by: Atenolol (Tenormin -) 25 mg PO BID [facility] Last Admin: 11/22/19 09:48 Dose: 25 mg Documented by: Atorvastatin Calcium (Lipitor -) 20 mg PO [facility] Last Admin: 11/21/19 21:23 Dose: 20 mg Documented by: Bacitracin (Bacitracin -) 1 applic TP BID [facility] Last Admin: 11/22/19 09:48 Dose: 1 applic Documented by: Budesonide/Formoterol Fumarate (Symbicort 160/4.5mcg -) 2 puff IH BID [facility] Last Admin: 11/22/19 09:49 Dose: 2 puff Documented by: Docusate Sodium (Colace -) 100 mg PO TID [facility] Last Admin: 11/22/19 13:07 Dose: 100 mg Documented by: Furosemide (Lasix Injection -) 40 mg IVPUSH BIDLASIX [facility] Last Admin: 11/22/19 13:07 Dose: 40 mg Documented by: Gabapentin (Neurontin -) 300 mg PO TID [facility] Last Admin: 11/22/19 13:07 Dose: 300 mg Documented by: Hydralazine HCl (Apresoline -) 25 mg PO BID [facility] Last Admin: 11/22/19 09:47 Dose: 25 mg Documented by: Meropenem 1 gm/ Dextrose 100 mls @ 200 mls/hr IVPB Q12H [facility] Last Admin: 11/22/19 06:28 Dose: 200 mls/hr Documented by: Lactobacillus Acidophilus (Bacid -) 1 tab PO DAILY [facility] Last Admin: 11/22/19 09:48 Dose: 1 tab Documented by: Latanoprost (Xalatan 0.005% Eye Drops -) 1 drop OU HS [facility] Last Admin: 11/21/19 21:35 Dose: 1 drop Documented by: Lidocaine HCl (Xylocaine 5% Top. Ointment) 1 applic TP BID PRN PRN Reason: BLLE pain Last Admin: 11/21/19 14:58 Dose: 1 applic Documented by: Oxycodone HCl (Roxicodone -) 5 mg PO Q4H PRN PRN Reason: PAIN LEVEL 7 - 10 Last Admin: 11/22/19 11:38 Dose: 5 mg Documented by: Pantoprazole Sodium (Protonix -) 40 mg PO DAILY [facility] Last Admin: 11/22/19 09:49 Dose: 40 mg Documented by: Polyethylene Glycol (Miralax (For Daily Use) -) 17 gm PO DAILY [facility] Last Admin: 11/22/19 09:48 Dose: 17 gm Documented by: Polysaccharide Iron Complex (Niferex-150 -) 150 mg PO DAILY [facility] Last Admin: 11/22/19 09:48 Dose: 150 mg Documented by: Potassium Chloride (K-Dur -) 40 meq PO AM [facility] Last Admin: 11/22/19 06:15 Dose: 40 meq Documented by: Prednisone (Deltasone -) 30 mg PO DAILY [facility] Stop: 11/23/19 10:01 Last Admin: 11/22/19 09:47 Dose: 30 mg Documented by: Senna (Senna -) 2 tab PO PRN PRN Reason: CONSTIPATION Last Admin: 11/21/19 21:25 Dose: 2 tab Documented by: Tamsulosin HCl (Flomax -) 0.4 mg PO DAILY@0830 [facility] Last Admin: 11/22/19 13:07 Dose: 0.4 mg Documented by: Terazosin HCl (Hytrin -) 2 mg PO [facility] Last Admin: 11/21/19 21:24 Dose: 2 mg Documented by: Tramadol HCl (Ultram -) 50 mg PO Q6H PRN PRN Reason: PAIN LEVEL 4 - 6 Warfarin Sodium (Coumadin -) 2 mg PO DAILY@1800 [facility] Last Admin: 11/21/19 18:51 Dose: 2 mg Documented by: - Objective Vital Signs: Vital Signs Temperature 97.6 F 11/22/19 14:00 Pulse Rate 62 11/22/19 14:00 Respiratory Rate 11/22/19 14:00 Blood Pressure 152/66 11/22/19 14:00 O2 Sat by Pulse Oximetry (%) 98 11/22/19 09:00 Constitutional: Yes: Well Nourished, No Distress, Calm Cardiovascular: Yes: Regular Rate and Rhythm Respiratory: Yes: Regular, CTA Bilaterally Gastrointestinal: Yes: Normal Bowel Sounds, Soft, Abdomen, Obese Genitourinary: Yes: Russo Present Musculoskeletal: Yes: Muscle Weakness Extremities: Yes: Erythema (BLLE) Edema: Yes (BLLE non pitting edema) Peripheral Pulses WNL: Yes Neurological: Yes: Alert, Oriented Psychiatric: Yes: Alert, Oriented Labs: CBC, BMP 11/22/19 06:40 11/22/19 06:40 INR, PTT INR 2.70 (0.83-1.09) H 11/22/19 06:40 Problem List - Problems (1) CKD (chronic kidney disease) Assessment/Plan: -Nephrology on board -Monitor Cr trend Problems reviewed: Yes Code(s): N18.9 - CHRONIC KIDNEY DISEASE, UNSPECIFIED (2) Urinary retention Assessment/Plan: -[place]usso catheter -On Terazosin -Add Flomax -Urology consult -Voiding trial in AM Problems reviewed: Yes Code(s): R33.9 - RETENTION OF URINE, UNSPECIFIED (3) Bilateral lower extremity edema Assessment/Plan: -Furosemide 40 mg IVP BID -Elevate BLLE Problems reviewed: Yes Code(s): R60.0 - LOCALIZED EDEMA (4) Cellulitis Assessment/Plan: -ID consult -IV meropenem -Vascular surgery consult -Pain management: Acetaminophen 1000 mg po Q6H PRN for pain 1-3 Tramadol 50 mg po Q6H PRN for pain 4-6 Oxycodone 5 mg po Q4H PRN for pain 7-10 -Gabapentin 300 mg po tid -Lidocaine top BLLE Problems reviewed: Yes Code(s): L03.90 - CELLULITIS, UNSPECIFIED (5) Anemia Assessment/Plan: -CKD + AMBIKA -Injectafer x 1 -Oral Iron polysaccharide daily -monitor trend -recent stool ob negative Problems reviewed: Yes Code(s): D64.9 - ANEMIA, UNSPECIFIED (6) Atrial fibrillation Assessment/Plan: -Continue Warfarin -Monitor daily INR Problems reviewed: Yes Code(s): I48.91 - UNSPECIFIED ATRIAL FIBRILLATION Qualifiers: Atrial fibrillation type: chronic (7) Constipation Assessment/Plan: -Miralax po daily -Senna 2 tabs HS -Continue colace 100 mg po TID -Enema x 1 Problems reviewed: Yes Code(s): K59.00 - CONSTIPATION, UNSPECIFIED Assessment/Plan See problem list
[2019-11-22] MEDS: WARFARIN NA 2 MG TABLET PO SCH (17:06)
--- NOTE | 2019-11-22 17:54 | PN ---
Progress Note, Physician Chief Complaint: Leg swelling History of Present Illness: Seen and examined at the bedside awake and alert feels much better today heel pain resolved no sob, no cp making urine via fox - Current Medication List Current Medications: Active Medications Acetaminophen (Tylenol -) 1,000 mg PO Q6H PRN PRN Reason: PAIN Albuterol/Ipratropium (Duoneb -) 1 amp NEB RQID [facility] Last Admin: 11/22/19 15:35 Dose: 1 amp Documented by: Atenolol (Tenormin -) 25 mg PO BID [facility] Last Admin: 11/22/19 09:48 Dose: 25 mg Documented by: Atorvastatin Calcium (Lipitor -) 20 mg PO HS [facility] Last Admin: 11/21/19 21:23 Dose: 20 mg Documented by: Bacitracin (Bacitracin -) 1 applic TP BID [facility] Last Admin: 11/22/19 09:48 Dose: 1 applic Documented by: Budesonide/Formoterol Fumarate (Symbicort 160/4.5mcg -) 2 puff IH BID [facility] Last Admin: 11/22/19 09:49 Dose: 2 puff Documented by: Docusate Sodium (Colace -) 100 mg PO TID [facility] Last Admin: 11/22/19 13:07 Dose: 100 mg Documented by: Furosemide (Lasix Injection -) 40 mg IVPUSH BIDLASIX [facility] Last Admin: 11/22/19 13:07 Dose: 40 mg Documented by: Gabapentin (Neurontin -) 300 mg PO TID [facility] Last Admin: 11/22/19 13:07 Dose: 300 mg Documented by: Hydralazine HCl (Apresoline -) 25 mg PO BID [facility] Last Admin: 11/22/19 09:47 Dose: 25 mg Documented by: Meropenem 1 gm/ Dextrose 100 mls @ 200 mls/hr IVPB Q12H [facility] Last Admin: 11/22/19 17:16 Dose: 200 mls/hr Documented by: Lactobacillus Acidophilus (Bacid -) 1 tab PO DAILY [facility] Last Admin: 11/22/19 09:48 Dose: 1 tab Documented by: Latanoprost (Xalatan 0.005% Eye Drops -) 1 drop OU HS [facility] Last Admin: 11/21/19 21:35 Dose: 1 drop Documented by: Lidocaine HCl (Xylocaine 5% Top. Ointment) 1 applic TP BID PRN PRN Reason: BLLE pain Last Admin: 11/21/19 14:58 Dose: 1 applic Documented by: Oxycodone HCl (Roxicodone -) 5 mg PO Q4H PRN PRN Reason: PAIN LEVEL 7 - 10 Last Admin: 11/22/19 11:38 Dose: 5 mg Documented by: Pantoprazole Sodium (Protonix -) 40 mg PO DAILY [facility] Last Admin: 11/22/19 09:49 Dose: 40 mg Documented by: Polyethylene Glycol (Miralax (For Daily Use) -) 17 gm PO DAILY [facility] Last Admin: 11/22/19 09:48 Dose: 17 gm Documented by: Polysaccharide Iron Complex (Niferex-150 -) 150 mg PO DAILY [facility] Last Admin: 11/22/19 09:48 Dose: 150 mg Documented by: Potassium Chloride (K-Dur -) 40 meq PO AM [facility] Last Admin: 11/22/19 06:15 Dose: 40 meq Documented by: Prednisone (Deltasone -) 30 mg PO DAILY [facility] Stop: 11/23/19 10:01 Last Admin: 11/22/19 09:47 Dose: 30 mg Documented by: Senna (Senna -) 2 tab PO PRN PRN Reason: CONSTIPATION Last Admin: 11/21/19 21:25 Dose: 2 tab Documented by: Tamsulosin HCl (Flomax -) 0.4 mg PO DAILY@0830 [facility] Last Admin: 11/22/19 13:07 Dose: 0.4 mg Documented by: Terazosin HCl (Hytrin -) 2 mg PO [facility] Last Admin: 11/21/19 21:24 Dose: 2 mg Documented by: Tramadol HCl (Ultram -) 50 mg PO Q6H PRN PRN Reason: PAIN LEVEL 4 - 6 Warfarin Sodium (Coumadin -) 2 mg PO DAILY@1800 [facility] Last Admin: 11/22/19 17:06 Dose: 2 mg Documented by: - Objective Vital Signs: Vital Signs Temperature 97.6 F 11/22/19 14:00 Pulse Rate 62 11/22/19 14:00 Respiratory Rate 20 11/22/19 14:00 Blood Pressure 152/66 11/22/19 14:00 O2 Sat by Pulse Oximetry (%) 98 11/22/19 09:00 Constitutional: Yes: No Distress HENT: Yes: Atraumatic Neck: Yes: Supple Cardiovascular: Yes: Regular Rate and Rhythm Respiratory: Yes: Regular, CTA Bilaterally Gastrointestinal: Yes: Soft Edema: Yes Edema: LLE: Trace, RLE: Trace Labs: CBC, BMP 11/22/19 06:40 11/22/19 06:40 INR, PTT INR 2.70 (0.83-1.09) H 11/22/19 06:40 Assessment/Plan 88 year old [place] male with history of CKD, CHF, COPD, hypertension, hyperlipidemia, DVT, CAD s/p CABG who presented to the ED with worsening leg swelling. 1. CKD stage 4 2. LE edema 3. Heart failure 4. Recent LE cellulitis 5. Chronic anemia 6. Hypertension 7. CAD s/p CABG 8. Heel pain with suspcion of Gout 9. Recent fall Renal function stable Continue IV Lasix 40mg IV BID Trend renal function and electrolytes daily Trial of Prednisone 30mg Daily for possible gout in his heel heel x-ray showed no fracture CT head and right shoulder x-ray were negative in relation to fall he had as an outpatient. Ko Toth DO
[2019-11-22] MEDS: ATORVASTATIN CA 20 MG TABLET (FP) PO SCH (21:21)
[2019-11-22] MEDS ORDERED: PT OWN MED DRAWER 7, Y5N ONE ×2 (21:24→21:26)
[2019-11-22] MEDS: TERAZOSIN HCL 1 MG CAPSULE PO SCH (21:25)
[2019-11-22] MEDS: LATANOPROST 0.005% OPHTH SOLN 2.5ML BOTTLE OU SCH (21:37)
[2019-11-22] MEDS: ACETAMINOPHEN 500 MG TABLET (FP) PO PRN (22:01)
[2019-11-23] MEDS ORDERED: MEROPENEM 1 GM VIAL (RESTRICTED TO ID) IVPB ONE ×2 (05:25→17:32)
[2019-11-23] MEDS ORDERED: DEXTROSE 5%-WATER 100 ML IVPB ONE ×2 (05:26→17:32)
[2019-11-23] MEDS: DOCUSATE SODIUM 100 MG CAPSULE (FP) PO SCH ×3 (05:34→21:18)
[2019-11-23] MEDS: FUROSEMIDE 40 MG/4 ML INJECTABLE VIAL IVPUSH SCH ×2 (05:34→15:10)
[2019-11-23] MEDS: GABAPENTIN 300 MG CAPSULE PO SCH ×3 (05:35→21:19)
[2019-11-23] MEDS: MEROPENEM 1 GM in DEXTROSE 5%-WATER 100 ML IVPB SCH ×2 (05:35→17:39)
[2019-11-23] MEDS: POTASSIUM CHLORIDE TABS 20 MEQ TABLET.ER (FP) PO SCH (06:12)
--- NOTE | 2019-11-23 07:24 | PN ---
Progress Note, Physician History of Present Illness: pulmonary alert,comfortable,sob improved,less lower ext discomfort - Current Medication List Current Medications: Active Medications Acetaminophen (Tylenol -) 1,000 mg PO Q6H PRN PRN Reason: PAIN Last Admin: 11/22/19 22:01 Dose: 1,000 mg Documented by: Albuterol/Ipratropium (Duoneb -) 1 amp NEB RQID [facility] Last Admin: 11/22/19 20:39 Dose: 1 amp Documented by: Atenolol (Tenormin -) 25 mg PO BID [facility] Last Admin: 11/22/19 21:21 Dose: 25 mg Documented by: Atorvastatin Calcium (Lipitor -) 20 mg PO HS [facility] Last Admin: 11/22/19 21:21 Dose: 20 mg Documented by: Bacitracin (Bacitracin -) 1 applic TP BID [facility] Last Admin: 11/22/19 21:37 Dose: 1 applic Documented by: Budesonide/Formoterol Fumarate (Symbicort 160/4.5mcg -) 2 puff IH BID [facility] Last Admin: 11/22/19 21:37 Dose: 2 puff Documented by: Docusate Sodium (Colace -) 100 mg PO TID [facility] Last Admin: 11/23/19 05:34 Dose: 100 mg Documented by: Furosemide (Lasix Injection -) 40 mg IVPUSH BIDLASIX [facility] Last Admin: 11/23/19 05:34 Dose: 40 mg Documented by: Gabapentin (Neurontin -) 300 mg PO TID [facility] Last Admin: 11/23/19 05:35 Dose: 300 mg Documented by: Hydralazine HCl (Apresoline -) 25 mg PO BID [facility] Last Admin: 11/22/19 21:21 Dose: 25 mg Documented by: Meropenem 1 gm/ Dextrose 100 mls @ 200 mls/hr IVPB Q12H [facility] Last Admin: 11/23/19 05:35 Dose: 200 mls/hr Documented by: Lactobacillus Acidophilus (Bacid -) 1 tab PO DAILY [facility] Last Admin: 11/22/19 09:48 Dose: 1 tab Documented by: Latanoprost (Xalatan 0.005% Eye Drops -) 1 drop OU HS [facility] Last Admin: 11/22/19 21:37 Dose: 1 drop Documented by: Lidocaine HCl (Xylocaine 5% Top. Ointment) 1 applic TP BID PRN PRN Reason: BLLE pain Last Admin: 11/21/19 14:58 Dose: 1 applic Documented by: Oxycodone HCl (Roxicodone -) 5 mg PO Q4H PRN PRN Reason: PAIN LEVEL 7 - 10 Last Admin: 11/22/19 11:38 Dose: 5 mg Documented by: Pantoprazole Sodium (Protonix -) 40 mg PO DAILY [facility] Last Admin: 11/22/19 09:49 Dose: 40 mg Documented by: Polyethylene Glycol (Miralax (For Daily Use) -) 17 gm PO DAILY [facility] Last Admin: 11/22/19 09:48 Dose: 17 gm Documented by: Polysaccharide Iron Complex (Niferex-150 -) 150 mg PO DAILY [facility] Last Admin: 11/22/19 09:48 Dose: 150 mg Documented by: Potassium Chloride (K-Dur -) 40 meq PO AM [facility] Last Admin: 11/23/19 06:12 Dose: 40 meq Documented by: Prednisone (Deltasone -) 30 mg PO DAILY [facility] Stop: 11/23/19 10:01 Last Admin: 11/22/19 09:47 Dose: 30 mg Documented by: Senna (Senna -) 2 tab PO HS PRN PRN Reason: CONSTIPATION Last Admin: 11/21/19 21:25 Dose: 2 tab Documented by: Tamsulosin HCl (Flomax -) 0.4 mg PO DAILY@0830 [facility] Last Admin: 11/22/19 13:07 Dose: 0.4 mg Documented by: Terazosin HCl (Hytrin -) 2 mg PO [facility] Last Admin: 11/22/19 21:25 Dose: 2 mg Documented by: Tramadol HCl (Ultram -) 50 mg PO Q6H PRN PRN Reason: PAIN LEVEL 4 - 6 Warfarin Sodium (Coumadin -) 2 mg PO DAILY@1800 [facility] Last Admin: 11/22/19 17:06 Dose: 2 mg Documented by: - Objective Vital Signs: Vital Signs Temperature 97.5 F L 11/23/19 06:00 Pulse Rate 53 L 11/23/19 06:00 Respiratory Rate 18 11/23/19 06:00 Blood Pressure 152/77 11/23/19 06:00 O2 Sat by Pulse Oximetry (%) 99 11/22/19 20:34 Constitutional: Yes: Well Nourished, Calm Eyes: Yes: WNL HENT: Yes: WNL Neck: Yes: WNL Cardiovascular: Yes: Pulse Irregular, S1, S2 Respiratory: Yes: Diminished Gastrointestinal: Yes: Normal Bowel Sounds, Soft Extremities: Yes: WNL Edema: No Labs: CBC, BMP 11/22/19 06:40 11/22/19 06:40 INR, PTT INR 2.70 (0.83-1.09) H 11/22/19 06:40 Problem List - Problems (1) CKD (chronic kidney disease) Code(s): N18.9 - CHRONIC KIDNEY DISEASE, UNSPECIFIED (2) Urinary retention Code(s): R33.9 - RETENTION OF URINE, UNSPECIFIED (3) Wound of lower extremity Code(s): S81.809A - UNSPECIFIED OPEN WOUND, UNSPECIFIED LOWER LEG, INIT ENCNTR (4) Acute on chronic diastolic (congestive) heart failure Code(s): I50.33 - ACUTE ON CHRONIC DIASTOLIC (CONGESTIVE) HEART FAILURE (5) Anemia Code(s): D64.9 - ANEMIA, UNSPECIFIED (6) Atrial fibrillation Code(s): I48.91 - UNSPECIFIED ATRIAL FIBRILLATION Qualifiers: Atrial fibrillation type: chronic (7) CAD (coronary artery disease) Code(s): I25.10 - ATHSCL HEART DISEASE OF [place] CORONARY ARTERY W/O ANG PCTRS (8) COPD (chronic obstructive pulmonary disease) Code(s): J44.9 - CHRONIC OBSTRUCTIVE PULMONARY DISEASE, UNSPECIFIED (9) History of aortic valve replacement with bioprosthetic valve Code(s): Z98.890 - OTHER SPECIFIED POSTPROCEDURAL STATES; Z95.3 - PRESENCE OF XENOGENIC HEART VALVE (10) PAD (peripheral artery disease) Code(s): I73.9 - PERIPHERAL VASCULAR DISEASE, UNSPECIFIED (11) S/P CABG x 2 Code(s): Z95.1 - PRESENCE OF AORTOCORONARY BYPASS GRAFT Assessment/Plan A/P Leg Cellulitis/Ulcer Infection Urinary Retention s/p fox placement CKD Atelectasis COPD Chronic Hypoxic Respiratory Failure CAD s/p CABG h/o MVR LV Diastolic Dysfunction Pulmonary HTN PAD h/o DVT - s/p fox catheter placement - inhaled bronchodilators - O2 to keep SpO2 >90% - anticoagulation - antibiotics per ID - ac - monitor h+h,lytes,renal function - normal transfusion threshold DR SINGH
[2019-11-23] MEDS: ALBUTEROL SO4 2.5/IPRATROPIUM 0.5 INH SOL 3 ML VIAL.NEB. NEB SCH ×3 (08:30→16:58)
[2019-11-23 08:51] LABS: BASO % 0.3 % (0-2.0); EOS % 2.7 % (0-4.5); HEMATOCRIT 24.7 % (35.4-49); HEMOGLOBIN 7.9 GM/dL (11.7-16.9); LYMPH % 7.5 % (8-40); MCH 27.5 pg (25.7-33.7); MCHC 32.1 g/dl (32.0-35.9); MEAN CELL VOLUME 85.9 fl (80-96); MEAN PLT VOLUME 9.5 fl (7.5-11.1); MONO % 11.8 % (3.8-10.2); NEUT % 77.7 % (42.8-82.8); PLATELET COUNT 88 K/MM3 (134-434); RBC 2.88 M/mm3 (4.00-5.60); RDW 17.8 % (11.9-15.9); WHITE BLOOD COUNT 3.6 K/mm3 (4.0-10.0)
[2019-11-23 08:56] LABS: INR 3.47 (0.83-1.09); PROTHROMBIN TIME (PATIENT) 41.5 SEC (9.7-13.0)
[2019-11-23] MEDS ORDERED: PT OWN MED DRAWER 7, Y5N ONE (09:00)
[2019-11-23] MEDS: ATENOLOL 25 MG TABLET (FP) PO SCH ×2 (09:04→21:19)
[2019-11-23] MEDS: predniSONE 10 MG TABLET (UD) PO SCH (09:04)
[2019-11-23] MEDS: IRON POLYSACCHARIDES 150 MG CAPSULE PO SCH (09:04)
[2019-11-23] MEDS: hydrALAZINE HCL 25 MG TABLET (FP) PO SCH ×2 (09:04→21:19)
[2019-11-23] MEDS: LACTOBACILLUS ACIDOPHILUS 1 TABLET PO SCH (09:04)
[2019-11-23] MEDS: TAMSULOSIN HCL 0.4 MG CAP PO SCH (09:05)
[2019-11-23] MEDS: BACITRACIN 15 GM TUBE TOPICAL OINTMENT TP SCH ×2 (09:05→21:31)
[2019-11-23] MEDS: POLYETHYLENE GLYCOL 3350 119 GM BTL PO SCH ×2 (09:05→21:21)
[2019-11-23] MEDS: PANTOPRAZOLE 40 MG TABLET PO SCH (09:05)
[2019-11-23] MEDS: BUDESONIDE/FORMETEROL FUMARATE 160/4.5 mcg INHALER IH SCH ×2 (09:06→21:20)
[2019-11-23 09:08] LABS: CALCIUM 8.5 mg/dL (8.5-10.1); CREATININE 1.9 mg/dL (0.55-1.3); POTASSIUM 4.3 mmol/L (3.5-5.1)
[2019-11-23] MEDS ORDERED: FUROSEMIDE 40 MG/4 ML INJECTABLE VIAL IVPUSH SCH (10:03)
--- NOTE | 2019-11-23 10:04 | PN ---
Progress Note, Physician - Current Medication List Current Medications: Active Medications Acetaminophen (Tylenol -) 1,000 mg PO Q6H PRN PRN Reason: PAIN Last Admin: 11/22/19 22:01 Dose: 1,000 mg Documented by: Albuterol/Ipratropium (Duoneb -) [address] [facility] Last Admin: 11/22/19 20:39 Dose: 1 amp Documented by: Atenolol (Tenormin -) [address] [facility] Last Admin: 11/23/19 09:04 Dose: 25 mg Documented by: Atorvastatin Calcium (Lipitor -) [address] [facility] Last Admin: 11/22/19 21:21 Dose: 20 mg Documented by: Bacitracin (Bacitracin -) [address] [facility] Last Admin: 11/23/19 09:05 Dose: 1 applic Documented by: Budesonide/Formoterol Fumarate (Symbicort 160/4.5mcg -) [address] [facility] Last Admin: 11/23/19 09:06 Dose: 2 puff Documented by: Docusate Sodium (Colace -) [address] [facility] Last Admin: 11/23/19 05:34 Dose: 100 mg Documented by: Furosemide (Lasix Injection -) [address] [facility] Last Admin: 11/23/19 05:34 Dose: 40 mg Documented by: Gabapentin (Neurontin -) [address] [facility] Last Admin: 11/23/19 05:35 Dose: 300 mg Documented by: Hydralazine HCl (Apresoline -) [address] [facility] Last Admin: 11/23/19 09:04 Dose: 25 mg Documented by: Meropenem 1 gm/ Dextrose 100 mls @ 200 mls/hr IVPB Q12H [facility] Last Admin: 11/23/19 05:35 Dose: 200 mls/hr Documented by: Lactobacillus Acidophilus (Bacid -) [address] [facility] Last Admin: 11/23/19 09:04 Dose: 1 tab Documented by: Latanoprost (Xalatan 0.005% Eye Drops -) [address] [facility] Last Admin: 11/22/19 21:37 Dose: 1 drop Documented by: Lidocaine HCl (Xylocaine 5% Top. Ointment) 1 applic TP BID PRN PRN Reason: BLLE pain Last Admin: 11/21/19 14:58 Dose: 1 applic Documented by: Oxycodone HCl (Roxicodone -) 5 mg PO Q4H PRN PRN Reason: PAIN LEVEL 7 - 10 Last Admin: 11/22/19 11:38 Dose: 5 mg Documented by: Pantoprazole Sodium (Protonix -) [address] [facility] Last Admin: 11/23/19 09:05 Dose: 40 mg Documented by: Polyethylene Glycol (Miralax (For Daily Use) -) [address] [facility] Last Admin: 11/23/19 09:05 Dose: 17 gm Documented by: Polysaccharide Iron Complex (Niferex-150 -) [address] [facility] Last Admin: 11/23/19 09:04 Dose: 150 mg Documented by: Potassium Chloride (K-Dur -) [address] [facility] Last Admin: 11/23/19 06:12 Dose: 40 meq Documented by: Senna (Senna -) 2 tab PO HS PRN PRN Reason: CONSTIPATION Last Admin: 11/21/19 21:25 Dose: 2 tab Documented by: Tamsulosin HCl (Flomax -) 0.4 mg PO DAILY@0830 [facility] Last Admin: 11/23/19 09:05 Dose: 0.4 mg Documented by: Terazosin HCl (Hytrin -) 2 mg PO [facility] Last Admin: 11/22/19 21:25 Dose: 2 mg Documented by: Tramadol HCl (Ultram -) 50 mg PO Q6H PRN PRN Reason: PAIN LEVEL 4 - 6 - Objective Vital Signs: Vital Signs Temperature 97.5 F L 11/23/19 06:00 Pulse Rate 53 L 11/23/19 06:00 Respiratory Rate 18 11/23/19 06:00 Blood Pressure 152/77 11/23/19 06:00 O2 Sat by Pulse Oximetry (%) 99 11/22/19 20:34 Cardiovascular: Yes: Regular Rate and Rhythm Respiratory: Yes: Regular, CTA Bilaterally Gastrointestinal: Yes: Normal Bowel Sounds, Soft Labs: CBC, BMP 11/23/19 08:05 11/23/19 08:05 INR, PTT INR 3.47 (0.83-1.09) H 11/23/19 08:05 Problem List - Problems (1) Cellulitis Code(s): L03.90 - CELLULITIS, UNSPECIFIED (2) Bilateral lower extremity edema Code(s): R60.0 - LOCALIZED EDEMA (3) Anemia Code(s): D64.9 - ANEMIA, UNSPECIFIED (4) Atrial fibrillation Code(s): I48.91 - UNSPECIFIED ATRIAL FIBRILLATION Qualifiers: Atrial fibrillation type: chronic (5) Thrombocytopenia Code(s): D69.6 - THROMBOCYTOPENIA, UNSPECIFIED Assessment/Plan - Problems (1) CKD (chronic kidney disease) Assessment/Plan: -Nephrology on board -Monitor Cr trend Problems reviewed: Yes Code(s): N18.9 - CHRONIC KIDNEY DISEASE, UNSPECIFIED (2) Urinary retention Assessment/Plan: -Russo catheter -On Terazosin -Add Flomax -Urology consult -Voiding trial in AM Problems reviewed: Yes Code(s): R33.9 - RETENTION OF URINE, UNSPECIFIED (3) Bilateral lower extremity edema Assessment/Plan: -Furosemide 40 mg IVP BID -Elevate BLLE Problems reviewed: Yes Code(s): R60.0 - LOCALIZED EDEMA (4) Cellulitis Assessment/Plan: -ID consult -IV meropenem -Vascular surgery consult -Pain management: Acetaminophen 1000 mg po Q6H PRN for pain 1-3 Tramadol 50 mg po Q6H PRN for pain 4-6 Oxycodone 5 mg po Q4H PRN for pain 7-10 -Gabapentin 300 mg po tid -Lidocaine top BLLE Problems reviewed: Yes Code(s): L03.90 - CELLULITIS, UNSPECIFIED (5) Anemia Assessment/Plan: -CKD + AMBIKA -Injectafer x 1 -Oral Iron polysaccharide daily -monitor trend -recent stool ob negative -One unit prbc -GI Problems reviewed: Yes Code(s): D64.9 - ANEMIA, UNSPECIFIED (6) Atrial fibrillation Assessment/Plan: -Continue Warfarin -Monitor daily INR Problems reviewed: Yes Code(s): I48.91 - UNSPECIFIED ATRIAL FIBRILLATION Qualifiers: Atrial fibrillation type: chronic (7) Constipation Assessment/Plan: -Miralax po daily -Senna 2 tabs HS -Continue colace 100 mg po TID -Enema x 1 Problems reviewed: Yes Code(s): K59.00 - CONSTIPATION, UNSPECIFIED
--- NOTE | 2019-11-23 11:48 | CON.GI ---
Consult Consult Specialty:: Gastroenterology Referred by:: Dr. Linh Mobley Reason for Consultation:: Anemia - History of Present Illness Chief Complaint: Fell at home, Leg pain and constipaion History of Present Illness: 89M admitted after he fell at home and has been c/o leg pain and constipation,. He had similar complaints and anemia when I saw him in consultation on 10/28/19. At that time he was guaiac negative He declined EGD and colonoscopy. Please see the 10/28/19 consultation for details. He tells me that he was referred for treatment of his transfusion acquired HCV but his insurance refused to pay for it. 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 ), Deep Vein Thrombosis, HTN, Hyperlipdemia, Other (AAA, PAD) Pulmonary: Yes: COPD, O2 Dependent Gastrointestinal: Yes: Diverticulosis, Gastritis, Hiatal Hernia Hepatobiliary: Yes: Cholelithiasis, Hepatitis C (transfusion acquired, ? 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) Rheumatology: Yes: Gout Dermatology: Yes: Cellulitis (of lower extremites) Additional Medical History: Glaucoma - Past Surgical History Past Surgical History: Yes: AAA Repair, Bypass (RLE), CABG, Carotid Endarterectomy (right), Cataract Removal, Colonoscopy, Upper Endoscopy, Valve Replacement (bioAVR 1983 x 2, 1997) - Alcohol/Substance Use Hx Alcohol Use: No History of Substance Use: reports: None - Smoking History Smoking history: Former smoker Have you smoked in the past 12 months: No Aproximately how many cigarettes per day: 0 If you are a former smoker, when did you quit?: 1966 - Social History Usual Living Arrangement: With Spouse ADL: Independent 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 [employer] Place of : [facility] History of Recent Travel: No Home Medications - Allergies Allergies/Adverse Reactions: Allergies Allergy/AdvReac Type Severity Reaction Status Date / Time black pepper Allergy Verified 11/18/19 13:52 Penicillins Allergy Rash Verified 11/18/19 13:52 RED PEPPER Allergy Uncoded 11/18/19 13:52 - Home Medications Home Medications: Ambulatory Orders Atenolol [Tenormin -] 25 mg PO BID 06/16/17 Docusate Sodium [Colace] 100 mg PO TID 06/16/17 Terazosin HCl 4 mg PO HS 06/16/17 Warfarin Sodium [Coumadin] 2 mg PO HS 06/16/17 hydrALAZINE HCL [Apresoline -] 25 mg PO BID #60 tablet 06/25/17 Losartan Potassium 50 mg PO BID #30 tablet 04/29/19 Bumetanide 2 mg PO BID 05/12/19 Acetaminophen [Tylenol] 650 mg PO PRN 11/18/19 Bifidobacterium Infantis [Align] 10.5 mg PO DAILY 11/18/19 Budesonide/Formeterol Fumarate [SYMBICORT 160/4.5mcg -] 1 puff IN QID 11/18/19 Latanoprost/Pf [Latanoprost 0.005% Eye Drop] 1 drop OU HS 11/18/19 Metolazone 2.5 mg PO DAILY 11/18/19 Tramadol HCl 50 mg PO PRN 11/18/19 Family Medical History Family Hx Cardiac Disorders: Mother ( 81 of [place]), Father ( 78 [place]) Review of Systems - Review of Systems Constitutional: reports: Weakness Eyes: reports: No Symptoms HENT: reports: No Symptoms Neck: reports: No Symptoms Cardiovascular: reports: No Symptoms Respiratory: reports: SOB on Exertion Gastrointestinal: reports: Constipation Musculoskeletal: reports: Extremity Pain Integumentary: reports: Blister, Other (leg ulcerations) Physical Exam-GI Vital Signs: Vital Signs Temperature 98.3 F 11/23/19 10:00 Pulse Rate 52 L 11/23/19 10:00 Respiratory Rate 18 11/23/19 10:00 Blood Pressure 139/63 11/23/19 10:00 O2 Sat by Pulse Oximetry (%) 99 11/22/19 20:34 CBC,CMP WBC 3.6 K/mm3 (4.0-10.0) L 11/23/19 08:05 RBC 2.88 M/mm3 (4.00-5.60) L 11/23/19 08:05 Hgb 7.9 GM/dL (11.7-16.9) L 11/23/19 08:05 Hct 24.7 % (35.4-49) L 11/23/19 08:05 MCV 85.9 fl (80-96) 11/23/19 08:05 MCH 27.5 pg (25.7-33.7) 11/23/19 08:05 MCHC 32.1 g/dl (32.0-35.9) 11/23/19 08:05 RDW 17.8 % (11.9-15.9) H 11/23/19 08:05 Plt Count 88 K/MM3 (134-434) L D 11/23/19 08:05 MPV 9.5 fl (7.5-11.1) 11/23/19 08:05 Absolute Neuts (auto) 2.8 K/mm3 (1.5-8.0) 11/23/19 08:05 Neutrophils % 77.7 % (42.8-82.8) 11/23/19 08:05 Lymphocytes % 7.5 % (8-40) L 11/23/19 08:05 Monocytes % 11.8 % (3.8-10.2) H 11/23/19 08:05 Eosinophils % 2.7 % (0-4.5) D 11/23/19 08:05 Basophils % 0.3 % (0-2.0) 11/23/19 08:05 Nucleated RBC % 1 % (0-0) H 11/23/19 08:05 Platelet Estimate Decreased 11/22/19 06:40 Sodium 138 mmol/L (136-145) 11/23/19 08:05 Potassium 4.3 mmol/L (3.5-5.1) 11/23/19 08:05 Chloride 102 mmol/L (98-107) 11/23/19 08:05 Carbon Dioxide 28 mmol/L (21-32) 11/23/19 08:05 Anion Gap 9 MMOL/L (8-16) 11/23/19 08:05 BUN 62.0 mg/dL (7-18) H 11/23/19 08:05 Creatinine 1.9 mg/dL (0.55-1.3) H 11/23/19 08:05 Est GFR (CKD-EPI)AfAm 35.44 11/23/19 08:05 Est GFR (CKD-EPI)NonAf 30.58 11/23/19 08:05 Random Glucose 99 mg/dL (74-106) 11/23/19 08:05 Uric Acid 11.4 mg/dL (2.6-7.2) H 11/21/19 12:00 Calcium 8.5 mg/dL (8.5-10.1) 11/23/19 08:05 Phosphorus 3.4 mg/dL (2.5-4.9) 11/22/19 06:40 Magnesium 2.2 mg/dL (1.8-2.4) 11/22/19 06:40 Iron 152 ug/dL (50-175) 11/22/19 06:40 TIBC 267 ug/dL (250-450) 11/22/19 06:40 Iron Saturation 56 % (17.5-39) H 11/22/19 06:40 Unsaturated IBC 115 ug/dL (200-275) L 11/22/19 06:40 Ferritin 629.6 ng/ml (8-388) H 11/22/19 06:40 Total Bilirubin 0.8 mg/dL (0.2-1) 11/21/19 12:00 AST 22 U/L (15-37) 11/21/19 12:00 ALT 23 U/L (13-61) 11/21/19 12:00 Alkaline Phosphatase 78 U/L (45-117) 11/21/19 12:00 Creatine Kinase 140 U/L (26-308) 11/19/19 09:05 Troponin I 0.04 ng/ml (0.00-0.05) 11/18/19 14:10 B-Natriuretic Peptide 18314.7 pg/ml (5-450) H 11/19/19 09:05 Total Protein 6.5 g/dl (6.4-8.2) 11/21/19 12:00 Albumin 2.5 g/dl (3.4-5.0) L 11/21/19 12:00 TSH 1.67 uIU/ml (0.358-3.74) D 11/19/19 09:05 Current Medications Generic Name Dose Route Start Last Admin Trade Name Freq PRN Reason Stop Dose Admin Acetaminophen 1,000 mg 11/21/19 12:52 11/22/19 22:01 Tylenol - PO 1,000 mg Q6H PRN Administration PAIN Albuterol/Ipratropium 1 amp 11/18/19 20:00 11/23/19 08:30 Duoneb - NEB Not Given RQID [facility] Atenolol 25 mg 11/18/19 22:00 11/23/19 09:04 Tenormin - PO 25 mg BID [facility] Administration Atorvastatin Calcium 20 mg 11/18/19 22:00 11/22/19 21:21 Lipitor - PO 20 mg HS [facility] Administration Bacitracin 1 applic 11/18/19 22:00 11/23/19 09:05 Bacitracin - TP 1 applic BID [facility] Administration Budesonide/Formoterol Fumarate 2 puff 11/18/19 22:00 11/23/19 09:06 Symbicort 160/4.5mcg - IH 2 puff BID [facility] Administration Docusate Sodium 100 mg 11/18/19 22:00 11/23/19 05:34 Colace - PO 100 mg TID [facility] Administration Furosemide 40 mg 11/19/19 06:00 11/23/19 05:34 Lasix Injection - IVPUSH 40 mg BIDLASIX [facility] Administration Furosemide 40 mg 11/23/19 10:03 Lasix Injection - IVPUSH 11/23/19 18:00 REGISTERED NURSE AMBULATORY ARI Gabapentin 300 mg 11/21/19 14:00 11/23/19 05:35 Neurontin - PO 300 mg TID [facility] Administration Hydralazine HCl 25 mg 11/18/19 22:00 11/23/19 09:04 Apresoline - PO 25 mg BID [facility] Administration Meropenem 1 gm/ Dextrose 100 mls @ 200 mls/hr 11/20/19 18:15 11/23/19 05:35 IVPB 200 mls/hr Q12H [facility] Administration Lactobacillus Acidophilus 1 tab 11/19/19 10:00 11/23/19 09:04 Bacid - PO 1 tab DAILY [facility] Administration Latanoprost 1 drop 11/18/19 22:00 11/22/19 21:37 Xalatan 0.005% Eye Drops - OU 1 drop HS [facility] Administration Lidocaine HCl 1 applic 11/21/19 13:00 11/21/19 14:58 Xylocaine 5% Top. Ointment TP 1 applic BID PRN Administration BLLE pain Oxycodone HCl 5 mg 11/21/19 12:54 11/22/19 11:38 Roxicodone - PO 5 mg Q4H PRN Administration PAIN LEVEL 7 - 10 Pantoprazole Sodium 40 mg 11/19/19 10:00 11/23/19 09:05 Protonix - PO 40 mg DAILY [facility] Administration Polyethylene Glycol 17 gm 11/21/19 13:00 11/23/19 09:05 Miralax (For Daily Use) - PO 17 gm DAILY [facility] Administration Polysaccharide Iron Complex 150 mg 11/22/19 10:00 11/23/19 09:04 Niferex-150 - PO 150 mg DAILY [facility] Administration Potassium Chloride 40 meq 11/19/19 07:00 11/23/19 06:12 K-Dur - PO 40 meq AM [facility] Administration Senna 2 tab 11/21/19 12:58 11/21/19 21:25 Senna - PO 2 tab HS PRN Administration CONSTIPATION Tamsulosin HCl 0.4 mg 11/22/19 12:49 11/23/19 09:05 Flomax - PO 0.4 mg DAILY@0830 [facility] Administration Terazosin HCl 2 mg 11/19/19 22:00 11/22/19 21:25 Hytrin - PO 2 mg HS [facility] Administration Tramadol HCl 50 mg 11/21/19 12:54 Ultram - PO Q6H PRN PAIN LEVEL 4 - 6 Warfarin Sodium 1.5 mg 11/25/19 18:00 Coumadin - PO DAILY@1800 [facility] Constitutional: Yes: Calm Eyes: Yes: Conjunctiva Clear HENT: Yes: Atraumatic Neck: Yes: Supple Cardiovascular: Yes: Pulse Irregular, Murmur (2/6 GEOVANY), Other (healed median sternotomy incision) Respiratory: Yes: CTA Bilaterally Gastrointestinal Inspection: Yes: Scars (long vertical incision with nonetnder upper incisional hernia) ...Auscultate: Yes: Normoactive Bowel Sounds ...Palpate: Yes: Soft, Other (nontender) ...Percussion: Yes: Tympanitic ...Rectal Exam: Yes: Guaiac Positive (brown but now guaiac positive stool, 2+ prostate) Edema: LLE: 2+, RLE: 3+ (with ulcers) Neurological: Yes: Alert, Oriented Labs: CBC, BMP 07/08/20 08:05 11/23/19 08:05 INR, PTT INR 3.47 (0.83-1.09) H 11/23/19 08:05 Laboratory Tests 12/16/11 02/14/12 08/27/12 07:15 06:00 08:50 Hgb 13.3 11.2 L 10.3 L Plt Count Iron TIBC Iron Saturation Unsaturated IBC Ferritin Albumin 09/07/12 07/13/16 08/26/18 06:30 09:10 06:00 Hgb 9.7 L 9.9 L 9.7 L Plt Count Iron TIBC Iron Saturation Unsaturated IBC Ferritin Albumin 05/12/19 05/14/19 05/16/19 11:01 06:20 06:35 Hgb 10.1 L 8.9 L 9.4 L Plt Count Iron TIBC Iron Saturation Unsaturated IBC Ferritin Albumin 10/27/19 10/28/19 10/29/19 13:30 06:40 07:35 Hgb 8.1 L 7.7 L 7.1 L Plt Count Iron TIBC Iron Saturation Unsaturated IBC Ferritin Albumin 11/18/19 11/20/19 11/20/19 14:10 08:20 08:20 Hgb 8.3 L 7.4 L Plt Count Iron 18 L TIBC 177 L Iron Saturation 10 L Unsaturated IBC 159 L Ferritin 566.4 H Albumin 11/21/19 11/21/19 11/22/19 12:00 12:00 06:40 Hgb 8.3 L Plt Count Iron 152 TIBC 267 Iron Saturation 56 H Unsaturated IBC 115 L Ferritin 629.6 H Albumin 2.5 L 11/23/19 08:05 Hgb 7.9 L Plt Count 88 L D Iron TIBC Iron Saturation Unsaturated IBC Ferritin Albumin Problem List - Problems (1) Occult blood in stools Code(s): R19.5 - OTHER FECAL ABNORMALITIES (2) Hepatitis C Code(s): B19.20 - UNSPECIFIED VIRAL HEPATITIS C WITHOUT HEPATIC COMA (3) Diverticulosis Code(s): K57.90 - DVRTCLOS OF INTEST, PART UNSP, W/O PERF OR ABSCESS W/O BLEED (4) Hiatal hernia Code(s): K44.9 - DIAPHRAGMATIC HERNIA WITHOUT OBSTRUCTION OR GANGRENE (5) Gastritis Code(s): K29.70 - GASTRITIS, UNSPECIFIED, WITHOUT BLEEDING (6) Acute on chronic respiratory failure with hypoxia and hypercapnia Code(s): J96.21 - ACUTE AND CHRONIC RESPIRATORY FAILURE WITH HYPOXIA; J96.22 - ACUTE AND CHRONIC RESPIRATORY FAILURE WITH HYPERCAPNIA (7) Anemia Code(s): D64.9 - ANEMIA, UNSPECIFIED (8) Aortic aneurysm Code(s): I71.9 - AORTIC ANEURYSM OF UNSPECIFIED SITE, WITHOUT RUPTURE (9) Atrial fibrillation Code(s): I48.91 - UNSPECIFIED ATRIAL FIBRILLATION Qualifiers: Atrial fibrillation type: chronic (10) History of AAA (abdominal aortic aneurysm) repair Code(s): Z98.890 - OTHER SPECIFIED POSTPROCEDURAL STATES (11) History of aortic valve replacement with bioprosthetic valve Code(s): Z98.890 - OTHER SPECIFIED POSTPROCEDURAL STATES; Z95.3 - PRESENCE OF XENOGENIC HEART VALVE (12) PAD (peripheral artery disease) Code(s): I73.9 - PERIPHERAL VASCULAR DISEASE, UNSPECIFIED (13) S/P CABG x 2 Code(s): Z95.1 - PRESENCE OF AORTOCORONARY BYPASS GRAFT (14) Venous stasis Code(s): I87.8 - OTHER SPECIFIED DISORDERS OF VEINS (15) Cholelithiasis Code(s): K80.20 - CALCULUS OF GALLBLADDER W/O CHOLECYSTITIS W/O OBSTRUCTION Assessment/Plan Impression: - Occult GI bleeding appears to be contributing to the leg ulcer site blood loss anemia. I have again offerred a repeat EGD and colonoscopy. I discussed the need for a bowel prep and the risks of perforation and hemorrhage and the need to interrupt antocoagulation. He has declined repeat endoscopies citing his multiple comorbidities and recall being told by Dr Mccormick that he should forego any repeat endoscopies as he was at too high a risk. - GIven his thrombocytopenia, hypoalbuminemia and h/o HCV I suspect that he has cirrhosis. He tells me that a course of treatment was denied -- Diverticulosis -- Silent gallsones -- Hiatal hernia Plan: -- PPI empirically -- Follow CBCs -- Transfuse prn -- Check retic count -- EGD an colonoscopy refused . Please recall us if he changes his mind and is deemed medically stable enough for endoscopy. -- Reconsider a course of HCV treatment now that cure is much more easily achieved. Will genotype, obtain sonogram and check AFP
[2019-11-23] MEDS: oxyCODONE HCL 5 MG TABLET PO PRN ×2 (11:55→21:35)
--- NOTE | 2019-11-23 11:59 | PN ---
Progress Note, Physician History of Present Illness: drop in h and h being transfused - Current Medication List Current Medications: Active Medications Acetaminophen (Tylenol -) 1,000 mg PO Q6H PRN PRN Reason: PAIN Last Admin: 11/22/19 22:01 Dose: 1,000 mg Documented by: Albuterol/Ipratropium (Duoneb -) 1 amp NEB RQID [facility] Last Admin: 11/23/19 08:30 Dose: Not Given Documented by: Atenolol (Tenormin -) 25 mg PO BID [facility] Last Admin: 11/23/19 09:04 Dose: 25 mg Documented by: Atorvastatin Calcium (Lipitor -) 20 mg PO [facility] Last Admin: 11/22/19 21:21 Dose: 20 mg Documented by: Bacitracin (Bacitracin -) 1 applic TP BID [facility] Last Admin: 11/23/19 09:05 Dose: 1 applic Documented by: Budesonide/Formoterol Fumarate (Symbicort 160/4.5mcg -) 2 puff IH BID [facility] Last Admin: 11/23/19 09:06 Dose: 2 puff Documented by: Docusate Sodium (Colace -) 100 mg PO TID [facility] Last Admin: 11/23/19 05:34 Dose: 100 mg Documented by: Furosemide (Lasix Injection -) 40 mg IVPUSH BIDLASIX [facility] Last Admin: 11/23/19 05:34 Dose: 40 mg Documented by: Furosemide (Lasix Injection -) 40 mg IVPUSH [employer] [facility] Stop: 11/23/19 18:00 Gabapentin (Neurontin -) 300 mg PO TID [facility] Last Admin: 11/23/19 05:35 Dose: 300 mg Documented by: Hydralazine HCl (Apresoline -) 25 mg PO BID [facility] Last Admin: 11/23/19 09:04 Dose: 25 mg Documented by: Meropenem 1 gm/ Dextrose 100 mls @ 200 mls/hr IVPB Q12H [facility] Last Admin: 11/23/19 05:35 Dose: 200 mls/hr Documented by: Lactobacillus Acidophilus (Bacid -) 1 tab PO DAILY [facility] Last Admin: 11/23/19 09:04 Dose: 1 tab Documented by: Latanoprost (Xalatan 0.005% Eye Drops -) 1 drop OU [facility] Last Admin: 11/22/19 21:37 Dose: 1 drop Documented by: Lidocaine HCl (Xylocaine 5% Top. Ointment) 1 applic TP BID PRN PRN Reason: BLLE pain Last Admin: 11/21/19 14:58 Dose: 1 applic Documented by: Oxycodone HCl (Roxicodone -) 5 mg PO Q4H PRN PRN Reason: PAIN LEVEL 7 - 10 Last Admin: 11/23/19 11:55 Dose: 5 mg Documented by: Pantoprazole Sodium (Protonix -) 40 mg PO DAILY [facility] Last Admin: 11/23/19 09:05 Dose: 40 mg Documented by: Polyethylene Glycol (Miralax (For Daily Use) -) 17 gm PO DAILY [facility] Last Admin: 11/23/19 09:05 Dose: 17 gm Documented by: Polysaccharide Iron Complex (Niferex-150 -) 150 mg PO DAILY [facility] Last Admin: 11/23/19 09:04 Dose: 150 mg Documented by: Potassium Chloride (K-Dur -) 40 meq PO AM [facility] Last Admin: 11/23/19 06:12 Dose: 40 meq Documented by: Senna (Senna -) 2 tab PO PRN PRN Reason: CONSTIPATION Last Admin: 11/21/19 21:25 Dose: 2 tab Documented by: Tamsulosin HCl (Flomax -) 0.4 mg PO DAILY@0830 [facility] Last Admin: 11/23/19 09:05 Dose: 0.4 mg Documented by: Terazosin HCl (Hytrin -) 2 mg PO [facility] Last Admin: 11/22/19 21:25 Dose: 2 mg Documented by: Tramadol HCl (Ultram -) 50 mg PO Q6H PRN PRN Reason: PAIN LEVEL 4 - 6 Warfarin Sodium (Coumadin -) 1.5 mg PO DAILY@1800 [facility] - Objective Vital Signs: Vital Signs Temperature 97.7 F 11/23/19 11:45 Pulse Rate 55 L 11/23/19 11:45 Respiratory Rate 20 11/23/19 11:45 Blood Pressure 142/73 11/23/19 11:45 O2 Sat by Pulse Oximetry (%) 99 11/22/19 20:34 Constitutional: Yes: No Distress, Calm Cardiovascular: Yes: S1, S2 Respiratory: Yes: Regular, CTA Bilaterally Gastrointestinal: Yes: Normal Bowel Sounds, Soft Musculoskeletal: Yes: WNL Extremities: Yes: WNL Wound/Incision: Yes: Other Neurological: Yes: Alert, Oriented Labs: CBC, BMP 11/23/19 08:05 11/23/19 08:05 INR, PTT INR 3.47 (0.83-1.09) H 11/23/19 08:05 Assessment/Plan Problem List - Problems (1) Bilateral lower extremity edema Code(s): R60.0 - LOCALIZED EDEMA (2) Cellulitis Code(s): L03.90 - CELLULITIS, UNSPECIFIED (3) Anemia Code(s): D64.9 - ANEMIA, UNSPECIFIED (4) CAD (coronary artery disease) Code(s): I25.10 - ATHSCL HEART DISEASE OF [place] CORONARY ARTERY W/O ANG PCTRS (5) COPD (chronic obstructive pulmonary disease) Code(s): J44.9 - CHRONIC OBSTRUCTIVE PULMONARY DISEASE, UNSPECIFIED (6) Chronic renal insufficiency Code(s): N18.9 - CHRONIC KIDNEY DISEASE, UNSPECIFIED (7) History of aortic valve replacement with bioprosthetic valve Code(s): Z98.890 - OTHER SPECIFIED POSTPROCEDURAL STATES; Z95.3 - PRESENCE OF XENOGENIC HEART VALVE (8) Hypertension Code(s): I10 - ESSENTIAL (PRIMARY) HYPERTENSION (9) Peripheral vascular disease Code(s): I73.9 - PERIPHERAL VASCULAR DISEASE, UNSPECIFIED (10) TIA (transient ischemic attack) Code(s): G45.9 - TRANSIENT CEREBRAL ISCHEMIC ATTACK, UNSPECIFIED (11) Venous stasis Code(s): I87.8 - OTHER SPECIFIED DISORDERS OF VEINS (12) Wound of lower extremity Code(s): S81.809A - UNSPECIFIED OPEN WOUND, UNSPECIFIED LOWER LEG, INIT ENCNTR (13) Thrombocytopenia Code(s): D69.6 - THROMBOCYTOPENIA, UNSPECIFIED (14) Status post fall Code(s): Z91.81 - HISTORY OF FALLING Assessment/Plan 89 y.o. male with PMH of CAD, CABG, AVR, COPD O2 dependent, OM, TIA, CKD, PAD, LE cellulitis/LLE ulcer infection, s/p recent course of Meropenem and completed Linezolid as outpatient presents with c/o severe pain in RLE , b/l Hips, Rt side of head, Rt shoulder and reports recent drainage from LLE. As per pt, 2 days after his hospital discharge he fell resulting in swelling of Rt side of his head, bruising his left hip, and severe pain in RLE and Rt shoulder s/p Fall RLE pain - ? cellulitis Shoulder pain Hip pain Hx of recent LLE cellulitis/ulcer infection Thrombocytopenia Anemia - receiving PRBC transfusion CKD CAD s/p CABG COPD CKD PAD s/p AVR plan continue current mgmt abx elevation of the leg rest as per the team wound care
[2019-11-23] MEDS ORDERED: EPOETIN ALFA 20,000 UNIT/1 ML VIAL SQ ONE (12:01)
--- NOTE | 2019-11-23 15:57 | PN ---
Physical Exam: SUBJECTIVE: Patient seen and examined. Pt. states that he was on antibiotics up until the day he arrived to the hospital. Pt. states he continued to take his Warfarin at his normal dose throughout this time. Pt. states that he was denied HCV treatment because he was too old. Pt. states that when he arrived he was very short of breath and weak but that hs breathing is back to baseline (3L NC). Pt. endorses still feeling weak and having decreased range of motion of his RUE after sustaingin a fall a couple weeks ago. Pt. states his lower extremity pain is better since starting the Gabapentin. Pt. states that while anemia has been a problem in the past he has never had problems with her platelets. OBJECTIVE: Vital Signs Period Temp Pulse Resp BP Sys/Hernandez Pulse Ox Last 24 Hr 97.5 F-987.6 F 52-63 18-20 139-158/63-88 97-99 GENERAL: The patient is awake, alert, and fully oriented, in no acute distress. HEAD: R sided tenderness to palpation EYES: Extraocular movements intact, sclera anicteric, conjunctiva clear. No ptosis. ENT: Moist mucous membranes. NECK: Trachea midline, full range of motion, supple. LUNGS: Breath sounds equal anteriorly, clear to auscultation bilaterally, no wheezes, no crackles, no accessory muscle use. HEART: Regular rate and rhythm, S1, S2 with systolic murmur ABDOMEN: Soft, nontender, nondistended, normoactive bowel sounds, no guarding, no rebound, no hepatosplenomegaly, no masses. EXTREMITIES: 2+ dorsal pedal pulses, warm, well-perfused, mild lower extremity tenderness, no edema. NEUROLOGICAL: Normal speech, gait not observed. PSYCH: Normal mood, normal affect. SKIN: Warm, dry, normal turgor, B/l Lower extremity anasarcic changes with weeping worse in the LLE than the right. Laboratory Results - last 24 hr 11/20/19 11/23/19 11/23/19 12:35 08:05 08:05 WBC 3.6 L RBC 2.88 L Hgb 7.9 L Hct 24.7 L MCV 85.9 MCH 27.5 MCHC 32.1 RDW 17.8 H Plt Count 88 L D MPV 9.5 Absolute Neuts (auto) 2.8 Neutrophils % 77.7 Lymphocytes % 7.5 L Monocytes % 11.8 H Eosinophils % 2.7 D Basophils % 0.3 Nucleated RBC % 1 H PT with INR 41.50 H INR 3.47 H Sodium Potassium Chloride Carbon Dioxide Anion Gap BUN Creatinine Est GFR (CKD-EPI)AfAm Est GFR (CKD-EPI)NonAf Random Glucose Calcium Blood Type O POSITIVE Antibody Screen Negative Crossmatch See Detail 11/23/19 08:05 WBC RBC Hgb Hct MCV MCH MCHC RDW Plt Count MPV Absolute Neuts (auto) Neutrophils % Lymphocytes % Monocytes % Eosinophils % Basophils % Nucleated RBC % PT with INR INR Sodium 138 Potassium 4.3 Chloride 102 Carbon Dioxide 28 Anion Gap 9 BUN 62.0 H Creatinine 1.9 H Est GFR (CKD-EPI)AfAm 35.44 Est GFR (CKD-EPI)NonAf 30.58 Random Glucose 99 Calcium 8.5 Blood Type Antibody Screen Crossmatch Active Medications Generic Name Dose Route Start Last Admin Trade Name Freq PRN Reason Stop Dose Admin Acetaminophen 1,000 mg 11/21/19 12:52 11/22/19 22:01 Tylenol - PO 1,000 mg Q6H PRN Administration PAIN Albuterol/Ipratropium 1 amp 11/18/19 20:00 11/23/19 11:30 Duoneb - NEB 1 amp RQID ARI Administration Atenolol 25 mg 11/18/19 22:00 11/23/19 09:04 Tenormin - PO 25 mg BID ARI Administration Atorvastatin Calcium 20 mg 11/18/19 22:00 11/22/19 21:21 Lipitor - PO 20 mg HS ARI Administration Bacitracin 1 applic 11/18/19 22:00 11/23/19 09:05 Bacitracin - TP 1 applic BID ARI Administration Budesonide/Formoterol Fumarate 2 puff 11/18/19 22:00 11/23/19 09:06 Symbicort 160/4.5mcg - IH 2 puff BID ARI Administration Docusate Sodium 100 mg 11/18/19 22:00 11/23/19 15:00 Colace - PO 100 mg TID ARI Administration Furosemide 40 mg 11/19/19 06:00 11/23/19 15:10 Lasix Injection - IVPUSH Not Given BIDLASIX ARI Furosemide 40 mg 11/23/19 10:03 11/23/19 15:10 Lasix Injection - IVPUSH 11/23/19 18:00 40 mg BIOLOGY PROFESSOR ARI Administration Gabapentin 300 mg 11/21/19 14:00 11/23/19 15:00 Neurontin - PO 300 mg TID ARI Administration Hydralazine HCl 25 mg 11/18/19 22:00 11/23/19 09:04 Apresoline - PO 25 mg BID ARI Administration Meropenem 1 gm/ Dextrose 100 mls @ 200 mls/hr 11/20/19 18:15 11/23/19 05:35 IVPB 200 mls/hr Q12H ARI Administration Lactobacillus Acidophilus 1 tab 11/19/19 10:00 11/23/19 09:04 Bacid - PO 1 tab DAILY ARI Administration Latanoprost 1 drop 11/18/19 22:00 11/22/19 21:37 Xalatan 0.005% Eye Drops - OU 1 drop HS ARI Administration Lidocaine HCl 1 applic 11/21/19 13:00 11/21/19 14:58 Xylocaine 5% Top. Ointment TP 1 applic BID PRN Administration BLLE pain Oxycodone HCl 5 mg 11/21/19 12:54 11/23/19 11:55 Roxicodone - PO 5 mg Q4H PRN Administration PAIN LEVEL 7 - 10 Pantoprazole Sodium 40 mg 11/19/19 10:00 11/23/19 09:05 Protonix - PO 40 mg DAILY ARI Administration Polyethylene Glycol 17 gm 11/23/19 22:00 Miralax (For Daily Use) - PO BID ARI Polysaccharide Iron Complex 150 mg 11/22/19 10:00 11/23/19 09:04 Niferex-150 - PO 150 mg DAILY ARI Administration Potassium Chloride 40 meq 11/19/19 07:00 11/23/19 06:12 K-Dur - PO 40 meq AM ARI Administration Senna 2 tab 11/21/19 12:58 11/21/19 21:25 Senna - PO 2 tab HS PRN Administration CONSTIPATION Tamsulosin HCl 0.4 mg 11/22/19 12:49 11/23/19 09:05 Flomax - PO 0.4 mg DAILY@0830 ARI Administration Terazosin HCl 2 mg 11/19/19 22:00 11/22/19 21:25 Hytrin - PO 2 mg HS ARI Administration Tramadol HCl 50 mg 11/21/19 12:54 Ultram - PO Q6H PRN PAIN LEVEL 4 - 6 Warfarin Sodium 1.5 mg 11/25/19 18:00 Coumadin - PO DAILY@1800 [facility] ASSESSMENT/PLAN: Pt. is an 89 y.o. M w/ PMHx. of CAD, CABG, AVR, COPD O2 dependent, OM, TIA, CKD, PAD, LE cellulitis/LLE ulcer infection, s/p recent course of Meropenem and completed Linezolid as outpatient presents with c/o severe pain in RLE , b/l Hips, Rt side of head, Rt shoulder and reports recent drainage from LLE. As per Pt. 2 days after his hospital discharge he fell resulting in swelling of Rt side of his head, bruising his left hip, and severe pain in RLE and Rt shoulder s/p Fall RLE pain Shoulder pain Hip pain Hx of recent LLE cellulitis/ulcer infection CKD CAD cHF s/p CABG COPD PAD s/p AVR ? wound infection-- LFGNB. No clinical infxn per ID HCV- chronic Anemia: chronic anemia of chronic disease --CKD/CHF/COPD+ -/infection+/- gilosses/ HCV-chronic improving iron and satutration. Pt.'s initial labs is consistent with anemia of chronic disease Transfuse PRBCs for Hgb <7 Thrombocytopenia: has been steadily declining over the last 8 years. HCV infection is likely the cause as liver disease progresses. f/u GI for reconsideration of HCV treatment, f/u Abd. US for cirrhosis. Pt. had CT A/P in April last year that did not show evidence of cirrhosis. Pt. discussed possibility of MDS . Pt.does not want to pursue aggressive w/u for this at this time Visit type - Emergency Visit Emergency Visit: Yes ED Registration Date: 11/18/19 Care time: The patient presented to the Emergency Department on the above date and was hospitalized for further evaluation of their emergent condition. - New Patient This patient is new to me today: Yes Date on this admission: 11/23/19 - Critical Care Critical Care patient: No - Discharge Referral Referred to [facility] Med P.C.: No ATTENDING PHYSICIAN STATEMENT I saw and evaluated the patient. I reviewed the resident's note and discussed the case with the resident. I agree with the resident's findings and plan as documented. SUBJECTIVE: OBJECTIVE: ASSESSMENT AND PLAN:
[2019-11-23] MEDS: traMADol HCL 50 MG TABLET PO PRN (16:30)
--- NOTE | 2019-11-23 17:11 | PN ---
Progress Note, Physician Chief Complaint: Leg swelling History of Present Illness: Seen and examined at the bedside awake and alert feels better no sob, cp, fever, chills leg swelling improved making urine via fox - Current Medication List Current Medications: Active Medications Acetaminophen (Tylenol -) 1,000 mg PO Q6H PRN PRN Reason: PAIN Last Admin: 11/22/19 22:01 Dose: 1,000 mg Documented by: Albuterol/Ipratropium (Duoneb -) 1 amp NEB RQID [facility] Last Admin: 11/23/19 16:58 Dose: 1 amp Documented by: Atenolol (Tenormin -) 25 mg PO BID [facility] Last Admin: 11/23/19 09:04 Dose: 25 mg Documented by: Atorvastatin Calcium (Lipitor -) 20 mg PO HS [facility] Last Admin: 11/22/19 21:21 Dose: 20 mg Documented by: Bacitracin (Bacitracin -) 1 applic TP BID [facility] Last Admin: 11/23/19 09:05 Dose: 1 applic Documented by: Budesonide/Formoterol Fumarate (Symbicort 160/4.5mcg -) 2 puff IH BID [facility] Last Admin: 11/23/19 09:06 Dose: 2 puff Documented by: Docusate Sodium (Colace -) 100 mg PO TID [facility] Last Admin: 11/23/19 15:00 Dose: 100 mg Documented by: Furosemide (Lasix Injection -) 40 mg IVPUSH BIDLASIX [facility] Last Admin: 11/23/19 15:10 Dose: Not Given Documented by: Furosemide (Lasix Injection -) 40 mg 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 [facility] Stop: 11/23/19 18:00 Last Admin: 11/23/19 15:10 Dose: 40 mg Documented by: Gabapentin (Neurontin -) 300 mg PO TID [facility] Last Admin: 11/23/19 15:00 Dose: 300 mg Documented by: Hydralazine HCl (Apresoline -) 25 mg PO BID [facility] Last Admin: 11/23/19 09:04 Dose: 25 mg Documented by: Meropenem 1 gm/ Dextrose 100 mls @ 200 mls/hr IVPB Q12H [facility] Last Admin: 11/23/19 05:35 Dose: 200 mls/hr Documented by: Lactobacillus Acidophilus (Bacid -) 1 tab PO DAILY [facility] Last Admin: 11/23/19 09:04 Dose: 1 tab Documented by: Latanoprost (Xalatan 0.005% Eye Drops -) 1 drop OU HS [facility] Last Admin: 11/22/19 21:37 Dose: 1 drop Documented by: Lidocaine HCl (Xylocaine 5% Top. Ointment) 1 applic TP BID PRN PRN Reason: BLLE pain Last Admin: 11/21/19 14:58 Dose: 1 applic Documented by: Oxycodone HCl (Roxicodone -) 5 mg PO Q4H PRN PRN Reason: PAIN LEVEL 7 - 10 Last Admin: 11/23/19 11:55 Dose: 5 mg Documented by: Pantoprazole Sodium (Protonix -) 40 mg PO DAILY [facility] Last Admin: 11/23/19 09:05 Dose: 40 mg Documented by: Polyethylene Glycol (Miralax (For Daily Use) -) 17 gm PO BID [facility] Polysaccharide Iron Complex (Niferex-150 -) 150 mg PO DAILY [facility] Last Admin: 11/23/19 09:04 Dose: 150 mg Documented by: Potassium Chloride (K-Dur -) 40 meq PO AM [facility] Last Admin: 11/23/19 06:12 Dose: 40 meq Documented by: Senna (Senna -) 2 tab PO HS PRN PRN Reason: CONSTIPATION Last Admin: 11/21/19 21:25 Dose: 2 tab Documented by: Tamsulosin HCl (Flomax -) 0.4 mg PO DAILY@0830 [facility] Last Admin: 11/23/19 09:05 Dose: 0.4 mg Documented by: Terazosin HCl (Hytrin -) 2 mg PO [facility] Last Admin: 11/22/19 21:25 Dose: 2 mg Documented by: Tramadol HCl (Ultram -) 50 mg PO Q6H PRN PRN Reason: PAIN LEVEL 4 - 6 Last Admin: 11/23/19 16:30 Dose: 50 mg Documented by: Warfarin Sodium (Coumadin -) 1.5 mg PO DAILY@1800 [facility] - Objective Vital Signs: Vital Signs Temperature 97.6 F 11/23/19 14:40 Pulse Rate 59 L 11/23/19 14:40 Respiratory Rate 18 11/23/19 14:40 Blood Pressure 155/65 11/23/19 14:40 O2 Sat by Pulse Oximetry (%) 97 11/23/19 09:00 Constitutional: Yes: No Distress Neck: Yes: Supple Cardiovascular: Yes: Regular Rate and Rhythm Respiratory: Yes: Regular Gastrointestinal: Yes: Soft Extremities: Yes: Erythema. No: Cyanosis Edema: Yes Edema: LLE: Trace, RLE: Trace Neurological: Yes: Alert, Oriented Labs: CBC, BMP 11/23/19 08:05 11/23/19 08:05 INR, PTT INR 3.47 (0.83-1.09) H 11/23/19 08:05 Assessment/Plan 88 year old [place] male with history of CKD, CHF, COPD, hypertension, hyperlipidemia, DVT, CAD s/p CABG who presented to the ED with worsening leg swelling. 1. CKD stage 4 2. LE edema 3. Heart failure 4. Recent LE cellulitis 5. Chronic anemia 6. Hypertension 7. CAD s/p CABG 8. Heel pain with suspicion of Gout 9. Recent fall Renal function stable Continue IV Lasix 40mg IV BID Trend renal function and electrolytes daily Heel pain resolved s/p prednisone continue antibiotics as per ID Trial of void continue flomax heel x-ray showed no fracture CT head and right shoulder x-ray were negative in relation to fall he had as an outpatient. Ko Toth DO
[2019-11-23] MEDS: TERAZOSIN HCL 1 MG CAPSULE PO SCH (21:18)
[2019-11-23] MEDS: ATORVASTATIN CA 20 MG TABLET (FP) PO SCH (21:19)
[2019-11-23] MEDS: LATANOPROST 0.005% OPHTH SOLN 2.5ML BOTTLE OU SCH (21:20)
[2019-11-24] MEDS ORDERED: MEROPENEM 1 GM VIAL (RESTRICTED TO ID) IVPB ONE (05:24)
[2019-11-24] MEDS ORDERED: DEXTROSE 5%-WATER 100 ML IVPB ONE (05:24)
[2019-11-24] MEDS: MEROPENEM 1 GM in DEXTROSE 5%-WATER 100 ML IVPB SCH (05:53)
[2019-11-24] MEDS: FUROSEMIDE 40 MG/4 ML INJECTABLE VIAL IVPUSH SCH (05:53)
[2019-11-24] MEDS: GABAPENTIN 300 MG CAPSULE PO SCH ×2 (05:53→13:06)
[2019-11-24] MEDS: DOCUSATE SODIUM 100 MG CAPSULE (FP) PO SCH ×2 (05:53→13:56)
[2019-11-24] MEDS: POTASSIUM CHLORIDE TABS 20 MEQ TABLET.ER (FP) PO SCH (06:16)
--- NOTE | 2019-11-24 07:56 | PN ---
Progress Note, Physician History of Present Illness: pulmonary alert,comfortable,-resp distress - Current Medication List Current Medications: Active Medications Acetaminophen (Tylenol -) 1,000 mg PO Q6H PRN PRN Reason: PAIN Last Admin: 11/22/19 22:01 Dose: 1,000 mg Documented by: Atenolol (Tenormin -) 25 mg PO BID [facility] Last Admin: 11/23/19 21:19 Dose: 25 mg Documented by: Atorvastatin Calcium (Lipitor -) 20 mg PO HS [facility] Last Admin: 11/23/19 21:19 Dose: 20 mg Documented by: Bacitracin (Bacitracin -) 1 applic TP BID [facility] Last Admin: 11/23/19 21:31 Dose: 1 applic Documented by: Budesonide/Formoterol Fumarate (Symbicort 160/4.5mcg -) 2 puff IH BID [facility] Last Admin: 11/23/19 21:20 Dose: 2 puff Documented by: Docusate Sodium (Colace -) 100 mg PO TID [facility] Last Admin: 11/24/19 05:53 Dose: Not Given Documented by: Furosemide (Lasix Injection -) 40 mg IVPUSH BIDLASIX [facility] Last Admin: 11/24/19 05:53 Dose: 40 mg Documented by: Gabapentin (Neurontin -) 300 mg PO TID [facility] Last Admin: 11/24/19 05:53 Dose: Not Given Documented by: Hydralazine HCl (Apresoline -) 25 mg PO BID [facility] Last Admin: 11/23/19 21:19 Dose: 25 mg Documented by: Meropenem 1 gm/ Dextrose 100 mls @ 200 mls/hr IVPB Q12H [facility] Last Admin: 11/24/19 05:53 Dose: 200 mls/hr Documented by: Lactobacillus Acidophilus (Bacid -) 1 tab PO DAILY [facility] Last Admin: 11/23/19 09:04 Dose: 1 tab Documented by: Latanoprost (Xalatan 0.005% Eye Drops -) 1 drop OU [facility] Last Admin: 11/23/19 21:20 Dose: 1 drop Documented by: Lidocaine HCl (Xylocaine 5% Top. Ointment) 1 applic TP BID PRN PRN Reason: BLLE pain Last Admin: 11/21/19 14:58 Dose: 1 applic Documented by: Oxycodone HCl (Roxicodone -) 5 mg PO Q4H PRN PRN Reason: PAIN LEVEL 7 - 10 Last Admin: 11/23/19 21:35 Dose: 5 mg Documented by: Pantoprazole Sodium (Protonix -) 40 mg PO DAILY [facility] Last Admin: 11/23/19 09:05 Dose: 40 mg Documented by: Polyethylene Glycol (Miralax (For Daily Use) -) 17 gm PO BID [facility] Last Admin: 11/23/19 21:21 Dose: 17 gm Documented by: Polysaccharide Iron Complex (Niferex-150 -) 150 mg PO DAILY [facility] Last Admin: 11/23/19 09:04 Dose: 150 mg Documented by: Potassium Chloride (K-Dur -) 40 meq PO AM [facility] Last Admin: 11/24/19 06:16 Dose: Not Given Documented by: Senna (Senna -) 2 tab PO HS PRN PRN Reason: CONSTIPATION Last Admin: 11/21/19 21:25 Dose: 2 tab Documented by: Tamsulosin HCl (Flomax -) 0.4 mg PO DAILY@0830 [facility] Last Admin: 11/23/19 09:05 Dose: 0.4 mg Documented by: Terazosin HCl (Hytrin -) 2 mg PO [facility] Last Admin: 11/23/19 21:18 Dose: 2 mg Documented by: Tramadol HCl (Ultram -) 50 mg PO Q6H PRN PRN Reason: PAIN LEVEL 4 - 6 Last Admin: 11/23/19 16:30 Dose: 50 mg Documented by: Warfarin Sodium (Coumadin -) 1.5 mg PO DAILY@1800 [facility] - Objective Vital Signs: Vital Signs Temperature 99 F 11/24/19 06:00 Pulse Rate 52 L 11/24/19 06:00 Respiratory Rate 18 11/24/19 06:00 Blood Pressure 148/86 11/24/19 06:00 O2 Sat by Pulse Oximetry (%) 94 L 11/23/19 21:00 Constitutional: Yes: Well Nourished, Calm Eyes: Yes: WNL HENT: Yes: WNL Neck: Yes: WNL Cardiovascular: Yes: Pulse Irregular, S1, S2 Respiratory: Yes: Rales (few bibasilar crackles) Gastrointestinal: Yes: Normal Bowel Sounds, Soft Extremities: Yes: WNL Edema: No Labs: CBC, BMP 11/23/19 08:0 Problem List - Problems (1) CKD (chronic kidney disease) Code(s): N18.9 - CHRONIC KIDNEY DISEASE, UNSPECIFIED (2) Urinary retention Code(s): R33.9 - RETENTION OF URINE, UNSPECIFIED (3) Wound of lower extremity Code(s): S81.809A - UNSPECIFIED OPEN WOUND, UNSPECIFIED LOWER LEG, INIT ENCNTR (4) Acute on chronic diastolic (congestive) heart failure Code(s): I50.33 - ACUTE ON CHRONIC DIASTOLIC (CONGESTIVE) HEART FAILURE (5) Anemia Code(s): D64.9 - ANEMIA, UNSPECIFIED (6) Atrial fibrillation Code(s): I48.91 - UNSPECIFIED ATRIAL FIBRILLATION Qualifiers: Atrial fibrillation type: chronic (7) CAD (coronary artery disease) Code(s): I25.10 - ATHSCL HEART DISEASE OF [place] CORONARY ARTERY W/O ANG PCTRS (8) COPD (chronic obstructive pulmonary disease) Code(s): J44.9 - CHRONIC OBSTRUCTIVE PULMONARY DISEASE, UNSPECIFIED (9) History of aortic valve replacement with bioprosthetic valve Code(s): Z98.890 - OTHER SPECIFIED POSTPROCEDURAL STATES; Z95.3 - PRESENCE OF XENOGENIC HEART VALVE (10) PAD (peripheral artery disease) Code(s): I73.9 - PERIPHERAL VASCULAR DISEASE, UNSPECIFIED (11) S/P CABG x 2 Code(s): Z95.1 - PRESENCE OF AORTOCORONARY BYPASS GRAFT Assessment/Plan A/P Leg Cellulitis/Ulcer Infection Urinary Retention s/p fox placement CKD Atelectasis COPD Chronic Hypoxic Respiratory Failure CAD s/p CABG h/o MVR LV Diastolic Dysfunction Pulmonary HTN PAD h/o DVT - s/p fox catheter placement - inhaled bronchodilators - O2 to keep SpO2 >90% - anticoagulation - antibiotics per ID - ac - monitor h+h,lytes,renal function - normal transfusion threshold - chest x-ray magan SINGH
[2019-11-24 08:09] LABS: BASO % 0.3 % (0-2.0); HEMATOCRIT 28.1 % (35.4-49); HEMOGLOBIN 9.2 GM/dL (11.7-16.9); LYMPH % 8.4 % (8-40); MCH 28.8 pg (25.7-33.7); MCHC 32.8 g/dl (32.0-35.9); MEAN CELL VOLUME 87.9 fl (80-96); MEAN PLT VOLUME 8.9 fl (7.5-11.1); MONO % 13.2 % (3.8-10.2); NEUT % 74.1 % (42.8-82.8); PLATELET COUNT 99 K/MM3 (134-434); RBC 3.19 M/mm3 (4.00-5.60); RDW 18.1 % (11.9-15.9); WHITE BLOOD COUNT 3.7 K/mm3 (4.0-10.0)
[2019-11-24 08:39] LABS: ALBUMIN 2.4 g/dl (3.4-5.0); BILIRUBIN,TOTAL 0.5 mg/dL (0.2-1); BLOOD UREA NITROGEN 59.9 mg/dL (7-18); CALCIUM 8.2 mg/dL (8.5-10.1); CREATININE 1.8 mg/dL (0.55-1.3); POTASSIUM 4.4 mmol/L (3.5-5.1); TOT PROT 6.4 g/dl (6.4-8.2)
--- NOTE | 2019-11-24 09:02 | DS ---
Physical Examination Vital Signs: Vital Signs Temperature 99 F 11/24/19 06:00 Pulse Rate 52 L 11/24/19 06:00 Respiratory Rate 18 11/24/19 06:00 Blood Pressure 148/86 11/24/19 06:00 O2 Sat by Pulse Oximetry (%) 94 L 11/23/19 21:00 Cardiovascular: Yes: Regular Rate and Rhythm Respiratory: Yes: Regular, CTA Bilaterally Gastrointestinal: Yes: Normal Bowel Sounds, Soft Edema: Yes Labs: CBC, BMP 11/24/19 07:40 11/24/19 07:40 Discharge Summary Problems reviewed: Yes Reason For Visit: EDEMA OF BOTH LOWER EXTREMITIES, CELLULITIS Current Active Problems Bilateral lower extremity edema (Acute) CKD (chronic kidney disease) (Acute) Cellulitis (Acute) Cholelithiasis (Acute) Constipation (Acute) Diverticulosis (Acute) Gastritis (Acute) Hepatitis C (Acute) Hiatal hernia (Acute) Occult blood in stools (Acute) Status post fall (Acute) Thrombocytopenia (Acute) Urinary retention (Acute) Wound of lower extremity (Acute) Hospital Course: - Problems (1) CKD (chronic kidney disease) Assessment/Plan: -Nephrology on board -Monitor Cr trend Problems reviewed: Yes Code(s): N18.9 - CHRONIC KIDNEY DISEASE, UNSPECIFIED (2) Urinary retention Assessment/Plan: -Russo catheter -On Terazosin -Add Flomax -Urology consult -Voiding trial in AM Problems reviewed: Yes Code(s): R33.9 - RETENTION OF URINE, UNSPECIFIED (3) Bilateral lower extremity edema Assessment/Plan: -Furosemide 40 mg IVP BID--to bumex -Elevate BLLE Problems reviewed: Yes Code(s): R60.0 - LOCALIZED EDEMA (4) Cellulitis Assessment/Plan: -ID consult -IV meropenem -Vascular surgery consult -Pain management: Acetaminophen 1000 mg po Q6H PRN for pain 1-3 Tramadol 50 mg po Q6H PRN for pain 4-6 Oxycodone 5 mg po Q4H PRN for pain 7-10 -Gabapentin 300 mg po tid -Lidocaine top BLLE Problems reviewed: Yes Code(s): L03.90 - CELLULITIS, UNSPECIFIED (5) Anemia Assessment/Plan: -CKD + AMBIKA -Injectafer x 1 -Oral Iron polysaccharide daily -monitor trend -recent stool ob negative -One unit prbc -GI Problems reviewed: Yes Code(s): D64.9 - ANEMIA, UNSPECIFIED (6) Atrial fibrillation Assessment/Plan: -Continue Warfarin -Monitor daily INR Problems reviewed: Yes Code(s): I48.91 - UNSPECIFIED ATRIAL FIBRILLATION Qualifiers: Atrial fibrillation type: chronic (7) Constipation Assessment/Plan: -Miralax po daily -Senna 2 tabs HS -Continue colace 100 mg po TID -Enema x 1 Problems reviewed: Yes Code(s): K59.00 - CONSTIPATION, UNSPECIFIED Condition: Stable - Instructions Disposition: LONG TERM FACILITY - Home Medications Comprehensive Discharge Medication List: Ambulatory Orders Atenolol [Tenormin -] 25 mg PO BID 06/16/17 Docusate Sodium [Colace] 100 mg PO TID 06/16/17 Terazosin HCl 4 mg PO HS 06/16/17 hydrALAZINE HCL [Apresoline -] 25 mg PO BID #60 tablet 06/25/17 Bumetanide 2 mg PO BID 05/12/19 Acetaminophen [Tylenol] 650 mg PO PRN 11/18/19 Bifidobacterium Infantis [Align] 10.5 mg PO DAILY 11/18/19 Budesonide/Formeterol Fumarate [SYMBICORT 160/4.5mcg -] 1 puff IN QID 11/18/19 Latanoprost/Pf [Latanoprost 0.005% Eye Drop] 1 drop OU HS 11/18/19 Tramadol HCl 50 mg PO PRN 11/18/19 Albuterol 2.5/Ipratropium 0.5 [Duoneb -] 1 amp NEB RQID amp 11/24/19 Atorvastatin Ca [Lipitor] 20 mg PO HS tablet 11/24/19 Clotrimazole/Betamet Diprop [Lotrisone -] 1 applic TP BID tube 11/24/19 Gabapentin [Neurontin -] 300 mg PO TID capsule 11/24/19 Iron Polysaccharides [Niferex-150 -] 150 mg PO DAILY capsule 11/24/19 Lactobacillus Acidophilus [Bacid -] 1 tab PO DAILY tab 11/24/19 Lidocaine 5% Top. Ointment [Xylocaine 5% Top. Ointment -] 1 applic TP BID PRN tube 11/24/19 Pantoprazole Sodium [Protonix -] 40 mg PO DAILY tablet.ec 11/24/19 Polyethylene Glycol 3350 [Miralax 119 gm Btl -] 17 gm PO BID bottle 11/24/19 Polyethylene Glycol 3350 [Miralax 119 gm Btl -] 17 gm PO DAILY bottle 11/24/19 Potassium Chloride [K-Dur -] 40 meq PO AM tablet.er 11/24/19 Sennosides [Senna -] 2 tab PO HS PRN tablet 11/24/19 Warfarin Na [Coumadin -] 1.5 mg PO DAILY@1800 tablet 11/24/19 oxyCODONE HCL [Roxicodone -] 5 mg PO Q4H PRN tablet 11/24/19 predniSONE [Deltasone -] 30 mg PO DAILY tablet 11/24/19
[2019-11-24 09:11] LABS: INR 4.42 (0.83-1.09)
[2019-11-24] MEDS ORDERED: CLOTRIMAZOLE/BETAMET DIPROP 15 GM TUBE TP SCH (10:00)
[2019-11-24] MEDS: hydrALAZINE HCL 25 MG TABLET (FP) PO SCH (10:15)
[2019-11-24] MEDS: PANTOPRAZOLE 40 MG TABLET PO SCH (10:15)
[2019-11-24] MEDS: ATENOLOL 25 MG TABLET (FP) PO SCH (10:16)
[2019-11-24] MEDS: BACITRACIN 15 GM TUBE TOPICAL OINTMENT TP SCH (10:16)
[2019-11-24] MEDS: IRON POLYSACCHARIDES 150 MG CAPSULE PO SCH (10:16)
[2019-11-24] MEDS: TAMSULOSIN HCL 0.4 MG CAP PO SCH (10:16)
[2019-11-24] MEDS: LACTOBACILLUS ACIDOPHILUS 1 TABLET PO SCH (10:16)
[2019-11-24] MEDS: BUMETANIDE 1 MG TABLET PO SCH ×2 (10:19→13:09)
[2019-11-24] MEDS ORDERED: PT OWN MED DRAWER 7, Y5N ONE ×2 (10:19→13:05)
[2019-11-24 10:27] LABS: RETICULOCYTES 2.25 % (0.5-1.5)
[2019-11-24] MEDS: POLYETHYLENE GLYCOL 3350 119 GM BTL PO SCH (10:32)
[2019-11-24] MEDS: BUDESONIDE/FORMETEROL FUMARATE 160/4.5 mcg INHALER IH SCH (11:40)
--- NOTE | 2019-11-24 12:07 | PN ---
Progress Note, Physician History of Present Illness: stable no new issues - Current Medication List Current Medications: Active Medications Acetaminophen (Tylenol -) 1,000 mg PO Q6H PRN PRN Reason: PAIN Last Admin: 11/22/19 22:01 Dose: 1,000 mg Documented by: Atenolol (Tenormin -) 25 mg PO BID [facility] Last Admin: 11/24/19 10:16 Dose: 25 mg Documented by: Atorvastatin Calcium (Lipitor -) 20 mg PO HS [facility] Last Admin: 11/23/19 21:19 Dose: 20 mg Documented by: Bacitracin (Bacitracin -) 1 applic TP BID [facility] Last Admin: 11/24/19 10:16 Dose: 1 applic Documented by: Budesonide/Formoterol Fumarate (Symbicort 160/4.5mcg -) 2 puff IH BID [facility] Last Admin: 11/24/19 11:40 Dose: Not Given Documented by: Bumetanide (Bumex -) 2 mg PO BID@1000,1400 [facility] Last Admin: 11/24/19 10:19 Dose: 2 mg Documented by: Clotrimazole (Lotrisone Cream (Small Tube)) 1 applic TP BID [facility] Last Admin: 11/24/19 10:19 Dose: 1 applic Documented by: Docusate Sodium (Colace -) 100 mg PO TID [facility] Last Admin: 11/24/19 05:53 Dose: Not Given Documented by: Gabapentin (Neurontin -) 300 mg PO TID [facility] Last Admin: 11/24/19 05:53 Dose: Not Given Documented by: Hydralazine HCl (Apresoline -) 25 mg PO BID [facility] Last Admin: 11/24/19 10:15 Dose: 25 mg Documented by: Meropenem 1 gm/ Dextrose 100 mls @ 200 mls/hr IVPB Q12H [facility] Last Admin: 11/24/19 05:53 Dose: 200 mls/hr Documented by: Lactobacillus Acidophilus (Bacid -) 1 tab PO DAILY [facility] Last Admin: 11/24/19 10:16 Dose: 1 tab Documented by: Latanoprost (Xalatan 0.005% Eye Drops -) 1 drop OU HS [facility] Last Admin: 11/23/19 21:20 Dose: 1 drop Documented by: Lidocaine HCl (Xylocaine 5% Top. Ointment) 1 applic TP BID PRN PRN Reason: BLLE pain Last Admin: 11/21/19 14:58 Dose: 1 applic Documented by: Oxycodone HCl (Roxicodone -) 5 mg PO Q4H PRN PRN Reason: PAIN LEVEL 7 - 10 Last Admin: 11/23/19 21:35 Dose: 5 mg Documented by: Pantoprazole Sodium (Protonix -) 40 mg PO DAILY [facility] Last Admin: 11/24/19 10:15 Dose: 40 mg Documented by: Polyethylene Glycol (Miralax (For Daily Use) -) 17 gm PO BID [facility] Last Admin: 11/24/19 10:32 Dose: 17 gm Documented by: Polysaccharide Iron Complex (Niferex-150 -) 150 mg PO DAILY [facility] Last Admin: 11/24/19 10:16 Dose: 150 mg Documented by: Potassium Chloride (K-Dur -) 40 meq PO AM [facility] Last Admin: 11/24/19 06:16 Dose: Not Given Documented by: Senna (Senna -) 2 tab PO PRN PRN Reason: CONSTIPATION Last Admin: 11/21/19 21:25 Dose: 2 tab Documented by: Tamsulosin HCl (Flomax -) 0.4 mg PO DAILY@0830 [facility] Last Admin: 11/24/19 10:16 Dose: 0.4 mg Documented by: Terazosin HCl (Hytrin -) 2 [facility] Last Admin: 11/23/19 21:18 Dose: 2 mg Documented by: Tramadol HCl (Ultram -) 50 mg PO Q6H PRN PRN Reason: PAIN LEVEL 4 - 6 Last Admin: 11/23/19 16:30 Dose: 50 mg Documented by: Warfarin Sodium (Coumadin -) 1.5 mg PO DAILY@1800 [facility] - Objective Vital Signs: Vital Signs Temperature 97.9 F 11/24/19 08:45 Pulse Rate 50 L 11/24/19 08:45 Respiratory Rate 20 11/24/19 08:45 Blood Pressure 156/85 11/24/19 08:45 O2 Sat by Pulse Oximetry (%) 97 11/24/19 09:00 Constitutional: Yes: No Distress, Calm Cardiovascular: Yes: S1, S2 Respiratory: Yes: Regular, CTA Bilaterally Gastrointestinal: Yes: Normal Bowel Sounds, Soft Musculoskeletal: Yes: WNL Extremities: Yes: Other Wound/Incision: Yes: Other Neurological: Yes: Alert, Oriented Labs: CBC, BMP 11/24/19 07:40 11/24/19 07:40 INR, PTT INR 4.42 (0.83-1.09) H* 11/24/19 07:40 Assessment/Plan Problem List - Problems (1) Bilateral lower extremity edema Code(s): R60.0 - LOCALIZED EDEMA (2) Cellulitis Code(s): L03.90 - CELLULITIS, UNSPECIFIED (3) Anemia Code(s): D64.9 - ANEMIA, UNSPECIFIED (4) CAD (coronary artery disease) Code(s): I25.10 - ATHSCL HEART DISEASE OF [place] CORONARY ARTERY W/O ANG PCTRS (5) COPD (chronic obstructive pulmonary disease) Code(s): J44.9 - CHRONIC OBSTRUCTIVE PULMONARY DISEASE, UNSPECIFIED (6) Chronic renal insufficiency Code(s): N18.9 - CHRONIC KIDNEY DISEASE, UNSPECIFIED (7) History of aortic valve replacement with bioprosthetic valve Code(s): Z98.890 - OTHER SPECIFIED POSTPROCEDURAL STATES; Z95.3 - PRESENCE OF XENOGENIC HEART VALVE (8) Hypertension Code(s): I10 - ESSENTIAL (PRIMARY) HYPERTENSION (9) Peripheral vascular disease Code(s): I73.9 - PERIPHERAL VASCULAR DISEASE, UNSPECIFIED (10) TIA (transient ischemic attack) Code(s): G45.9 - TRANSIENT CEREBRAL ISCHEMIC ATTACK, UNSPECIFIED (11) Venous stasis Code(s): I87.8 - OTHER SPECIFIED DISORDERS OF VEINS (12) Wound of lower extremity Code(s): S81.809A - UNSPECIFIED OPEN WOUND, UNSPECIFIED LOWER LEG, INIT ENCNTR (13) Thrombocytopenia Code(s): D69.6 - THROMBOCYTOPENIA, UNSPECIFIED (14) Status post fall Code(s): Z91.81 - HISTORY OF FALLING Assessment/Plan 89 y.o. male with PMH of CAD, CABG, AVR, COPD O2 dependent, OM, TIA, CKD, PAD, LE cellulitis/LLE ulcer infection, s/p recent course of Meropenem and completed Linezolid as outpatient presents with c/o severe pain in RLE , b/l Hips, Rt side of head, Rt shoulder and reports recent drainage from LLE. As per pt, 2 days after his hospital discharge he fell resulting in swelling of Rt side of his head, bruising his left hip, and severe pain in RLE and Rt shoulder s/p Fall RLE pain - ? cellulitis Shoulder pain Hip pain Hx of recent LLE cellulitis/ulcer infection Thrombocytopenia Anemia - receiving PRBC transfusion CKD CAD s/p CABG COPD CKD PAD s/p AVR plan continue current mgmt abx can change to oral elevation of the leg rest as per the team wound care
[2019-11-24] MEDS: oxyCODONE HCL 5 MG TABLET PO PRN (13:08)
--- NOTE | 2019-11-24 14:44 | CONSULT ---
- Consultation REQUESTING PROVIDER: CONSULT REQUEST: We have been asked to surgically evaluate this patient for B/L LE cellulitis PCP:Jose Angel Arguelles DO HISTORY OF PRESENT ILLNESS: 89 y.o. male with PMH of CAD, CABG, AVR, COPD O2 dependent, OM, TIA, CKD, PAD, LE cellulitis/LLE ulcer infection, s/p recent course of Meropenem and completed Linezolid as outpatient presents with c/o severe pain in RLE ,and recent drainage from LLE. As per pt, 2 days after his hospital discharge he fell resulting in swelling of Rt side of his head, bruising his left hip, and severe pain in RLE and Rt shoulder. Initially felt it was getting better but pain became worse and he has been unable to ambulate. Saw his PMD on 11/14/19 and had Xrays of his hips/shoulder done which revealed no fractures or dislocation and CT head without acute findings on 11/17/19. He presented to the ER yesterday with severe pain in RLE and continued difficulty moving his Rt shoulder and RLE due to pain. He was given dose of Ertapenem but not restarted on Linezolid due to thrombocytopenia. Today he still complains of significant Right LE pain which is preventing him from ambulating including + pain even at rest. He has no other complaints. - Past Medical History SNA[employer]: Yes: TIA (during 1983 CABG/AVR in [facility]) Cardio/Vascular: Yes: AFIB, CAD (s/p triple CABG and porcine AVR in 1983 complicated by endocarditis and requiring a repeat AVR within 2 weeks at [facility], he had repeat AVR at [facility] and CABG in 1997. 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) Rheumatology: Yes: Gout Additional Medical History: Glaucoma - Past Surgical History Past Surgical History: Yes: AAA Repair, Bypass (RLE), CABG, Carotid Endarterectomy (right), Cataract Removal, Colonoscopy, Upper Endoscopy, Valve R eplacement (bioAVR 1983 x 2, 1997) - Alcohol/Substance Use Hx Alcohol Use: No History of Substance Use: reports: None - Smoking History Smoking history: Former smoker Have you smoked in the past 12 months: No Aproximately how many cigarettes per day: 0 If you are a former smoker, when did you quit?: 1966 - Social History Usual Living Arrangement: With Spouse ADL: Independent 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 [employer] History of Recent Travel: No Home Medications - Allergies Allergies/Adverse Reactions: Allergies Allergy/AdvReac Type Severity Reaction Status Date / Time black pepper Allergy Verified 11/18/19 13:52 Penicillins Allergy Rash Verified 11/18/19 13:52 RED PEPPER Allergy Uncoded 11/18/19 13:52 - Home Medications Home Medications: Ambulatory Orders Atenolol [Tenormin -] 25 mg PO BID 06/16/17 Docusate Sodium [Colace] 100 mg PO TID 06/16/17 Terazosin HCl 4 mg PO HS 06/16/17 Warfarin Sodium [Coumadin] 2 mg PO HS 06/16/17 hydrALAZINE HCL [Apresoline -] 25 mg PO BID #60 tablet 06/25/17 Losartan Potassium 50 mg PO BID #30 tablet 04/29/19 Bumetanide 2 mg PO BID 05/12/19 Acetaminophen [Tylenol] 650 mg PO PRN 11/18/19 Bifidobacterium Infantis [Align] 10.5 mg PO DAILY 11/18/19 Budesonide/Formeterol Fumarate [SYMBICORT 160/4.5mcg -] 1 puff IN QID 11/18/19 Latanoprost/Pf [Latanoprost 0.005% Eye Drop] 1 drop OU HS 11/18/19 Metolazone 2.5 mg PO DAILY 11/18/19 Tramadol HCl 50 mg PO PRN 11/18/19 Review of Systems - Review of Systems Constitutional: reports: No Symptoms. denies: Chills, Diaphoresis, Fever, Lethargy, Loss of Appetite, Malaise, Night Sweats, Unintentional Wgt. Loss, Weakness, Other Eyes: reports: No Symptoms. denies: Blind Spots, Blurred Vision, Double Vision, Eye Pain, Floaters, Photophobia, Recent Change in Vision, Other HENT: reports: No Symptoms. denies: Difficult Swallowing, Ear Discharge, Ear Pain, Epistaxis, Congestion, Ocular Prosthesis, Throat Pain, Toothache, Ringing in Ears, Other Neck: reports: No Symptoms. denies: Decreased ROM, Lumps, Pain on Movement, Stiffness, Swollen Glands, Tenderness, Other Cardiovascular: reports: No Symptoms. denies: Chest Pain, Palpitations, Shortness of Breath, Other Respiratory: reports: No Symptoms. denies: Cough, Exercise Intolerance, Hemoptysis, Other Gastrointestinal: reports: No Symptoms. denies: Abdominal Pain, Bloating, Constipation, Diarrhea, Dysphagia, Indigestion, Genitourinary: reports: No Symptoms. denies: Burning, Discharge, Dysuria, Flank Pain, Frequency, Mass, Testicular Pain, Testicular Swelling, Urgency, Vaginal Bleeding, Other Musculoskeletal: reports: Decreased ROM (Rt shoulder/RLE) Integumentary: reports: Bruising (Lt hip) B/L LE errythema and edema Neurological: reports: No Symptoms Endocrine: reports: No Symptoms Hematology/Lymphatic: reports: No Symptoms Psychiatric: reports: No Symptoms Physical Exam Constitutional: A&Ox3, No Distress, Calm Eyes: Yes: Conjunctiva Clear, EOM Intact HENT: Yes: Atraumatic, Normocephalic Cardiovascular: Yes: Regular Rate and Rhythm Respiratory: Unlabored resp on RA (although poor inspiratory intake) Extremities: B/L Erythema, with diffuse edema and cellulitis chronic b/l LE erythema/venous stasis changes-L>R with some areas of yellow crust anteriorly from weeping skin but no active weeping, no ulcers or open wounds. B/L LE compartments soft, supple with exquisite TTP throughout , Feet warm and well perfused with + DP pulses. Edema: No Integumentary: Yes: Bruising (Lt hip) Wound/Incision: Yes: Other (b/l LE chronic erythema, no warmth, no significant edema, no draining ulcers, ++tenderness) Neurological: Yes: Alert, Oriented Psychiatric: Yes: Alert, Oriented Labs: Imaging - Results X-ray: Report Reviewed (Rt shoulder/ bilateral hip Xrays without fracture or dislocation) Cat Scan: Report Reviewed (Head CT no acute findings) Problem List - Problems (1) Cellulitis Code(s): L03.90 - CELLULITIS, UNSPECIFIED (2) Bilateral lower extremity edema Assessment/Plan: 89 y.o. male with PMH of CAD, CABG, AVR, COPD O2 dependent, OM, TIA, CKD, PAD, LE cellulitis/LLE ulcer infection, s/p recent course of Meropenem and completed Linezolid as outpatient presents with c/o severe pain in RLE and recent drainage from LLE. Improved LLE cellulitis since last admission, no drainage noted from ulcers, afebrile/wbc normal. Completed course of antibiotics recently. Patient with palpable pulses and no indication for vascular intervention at this time. --Local wound care with algente to left LE -- no obvious sign RLE cellulitis/wound infection at this time (dry today) -- IV ABX per ID -- blood cultures negative 24h, RLE wound culture pending -- thrombocytopenia could possibly be attributed to recent course of Linezolid, monitor --Reconsult vascular PRN Code(s): R60.0 - LOCALIZED EDEMA
[2019-11-24] MEDS: ACETAMINOPHEN 500 MG TABLET (FP) PO PRN (14:52)
--- NOTE | 2019-11-24 16:09 | PN ---
Progress Note, Physician Chief Complaint: Leg swelling History of Present Illness: Seen and examined at the bedside. Patient offers no acute complaints. He had a difficult time trying to ambulate and had some leg pain when trying to walk. Patient will likely require rehab on discharge. He denies any shortness of breath, chest pain, abdominal cane, nausea, vomiting, diarrhea. His leg edema has improved. He has good oral intake. - Current Medication List Current Medications: Active Medications Acetaminophen (Tylenol -) 1,000 mg PO Q6H PRN PRN Reason: PAIN Last Admin: 11/24/19 14:52 Dose: 1,000 mg Documented by: Atenolol (Tenormin -) 25 mg PO BID [facility] Last Admin: 11/24/19 10:16 Dose: 25 mg Documented by: Atorvastatin Calcium (Lipitor -) 20 mg PO HS [facility] Last Admin: 11/23/19 21:19 Dose: 20 mg Documented by: Bacitracin (Bacitracin -) 1 applic TP BID [facility] Last Admin: 11/24/19 10:16 Dose: 1 applic Documented by: Budesonide/Formoterol Fumarate (Symbicort 160/4.5mcg -) 2 puff IH BID [facility] Last Admin: 11/24/19 11:40 Dose: Not Given Documented by: Bumetanide (Bumex -) 2 mg PO BID@1000,1400 [facility] Last Admin: 11/24/19 13:09 Dose: 2 mg Documented by: Clotrimazole (Lotrisone Cream (Small Tube)) 1 applic TP BID [facility] Last Admin: 11/24/19 10:19 Dose: 1 applic Documented by: Docusate Sodium (Colace -) 100 mg PO TID [facility] Last Admin: 11/24/19 13:56 Dose: Not Given Documented by: Gabapentin (Neurontin -) 300 mg PO TID [facility] Last Admin: 11/24/19 13:06 Dose: 300 mg Documented by: Hydralazine HCl (Apresoline -) 25 mg PO BID [facility] Last Admin: 11/24/19 10:15 Dose: 25 mg Documented by: Meropenem 1 gm/ Dextrose 100 mls @ 200 mls/hr IVPB Q12H [facility] Last Admin: 11/24/19 05:53 Dose: 200 mls/hr Documented by: Lactobacillus Acidophilus (Bacid -) 1 tab PO DAILY [facility] Last Admin: 11/24/19 10:16 Dose: 1 tab Documented by: Latanoprost (Xalatan 0.005% Eye Drops -) 1 drop OU [facility] Last Admin: 11/23/19 21:20 Dose: 1 drop Documented by: Lidocaine HCl (Xylocaine 5% Top. Ointment) 1 applic TP BID PRN PRN Reason: BLLE pain Last Admin: 11/21/19 14:58 Dose: 1 applic Documented by: Oxycodone HCl (Roxicodone -) 5 mg PO Q4H PRN PRN Reason: PAIN LEVEL 7 - 10 Last Admin: 11/24/19 13:08 Dose: 5 mg Documented by: Pantoprazole Sodium (Protonix -) 40 mg PO DAILY [facility] Last Admin: 11/24/19 10:15 Dose: 40 mg Documented by: Polyethylene Glycol (Miralax (For Daily Use) -) 17 gm PO BID [facility] Last Admin: 11/24/19 10:32 Dose: 17 gm Documented by: Polysaccharide Iron Complex (Niferex-150 -) 150 mg PO DAILY [facility] Last Admin: 11/24/19 10:16 Dose: 150 mg Documented by: Potassium Chloride (K-Dur -) 40 meq PO AM [facility] Last Admin: 11/24/19 06:16 Dose: Not Given Documented by: Senna (Senna -) 2 tab PO PRN PRN Reason: CONSTIPATION Last Admin: 11/21/19 21:25 Dose: 2 tab Documented by: Tamsulosin HCl (Flomax -) 0.4 mg PO DAILY@0830 [facility] Last Admin: 11/24/19 10:16 Dose: 0.4 mg Documented by: Terazosin HCl (Hytrin -) 2 mg PO [facility] Last Admin: 11/23/19 21:18 Dose: 2 mg Documented by: Tramadol HCl (Ultram -) 50 mg PO Q6H PRN PRN Reason: PAIN LEVEL 4 - 6 Last Admin: 11/23/19 16:30 Dose: 50 mg Documented by: Warfarin Sodium (Coumadin -) 1.5 mg PO DAILY@1800 [facility] - Objective Vital Signs: Vital Signs Temperature 97.7 F 11/24/19 14:00 Pulse Rate 62 11/24/19 14:00 Respiratory Rate 20 11/24/19 14:00 Blood Pressure 132/80 11/24/19 14:00 O2 Sat by Pulse Oximetry (%) 97 11/24/19 09:00 Constitutional: Yes: No Distress HENT: Yes: Atraumatic Neck: Yes: Supple Cardiovascular: Yes: Regular Rate and Rhythm Respiratory: Yes: Regular Gastrointestinal: Yes: Soft Extremities: Yes: Erythema. No: Cyanosis Edema: Yes Edema: LLE: Trace, RLE: Trace Neurological: Yes: Alert, Oriented Labs: CBC, BMP 11/24/19 07:40 11/24/19 07:40 INR, PTT INR 4.42 (0.83-1.09) H* 11/24/19 07:40 Assessment/Plan 88 year old [place] male with history of CKD, CHF, COPD, hypertension, hyperlipidemia, DVT, CAD s/p CABG who presented to the ED with worsening leg s welling. 1. CKD stage 4 2. LE edema 3. Heart failure 4. Recent LE cellulitis 5. Chronic anemia 6. Hypertension 7. CAD s/p CABG 8. Heel pain with suspicion of Gout 9. Recent fall renal function is stable at this time. There are no overt electrolyte or acid based disturbance is noted. Agree with converting diuretics to Bumex 2 mg twice daily. Patient will need close monitoring of weights as well as renal function upon discharge. We will continue potassium 40 meq daily while patient is on diuretics trial of void ongoing. Continue Flomax. We will give Epogen 20,000 units 1 for management of anemia. Continue antibiotics as per infectious disease. Stable from renal perspective for discharge. Ko Toth DO
--- NOTE | 2019-11-24 16:19 | PN ---
Progress Note (short form) - Note Progress Note: Vascular Surgery VAscular study reviewed Pt with right femoral artery stent with dilatation post stent. No need for any intervention. Jose Angel Arguelles DO
[2019-11-24] MEDS: traMADol HCL 50 MG TABLET PO PRN (16:57)
[2019-11-24 17:46] VITALS: BP 155/73; PULSE 57; TEMP 97.6
[2019-11-25] MEDS ORDERED: WARFARIN NA 1 MG TABLET PO SCH (18:00)
[2019-11-29 20:10] LABS: TRANSGLUTAMINASE IGA < 2 U/mL (0-3); TRANSGLUTAMINASE IGG < 2 U/mL (0-5)
[2019-12-02 22:06] LABS: HCV RNA GENOTYPE 2b (.)
[2019-12-06 14:06] LABS: HEP B CORE AB, TOT Negative
== END 2019-11-24 18:13 | DRG 291 ==
LOC: JER 13:46 → JERBED 16:57 → J5S 11-19 06:41
PROVIDERS: ADMIT Family Medicine; ATTEND Family Medicine
PROC: 30233N1 Transfusion of Nonautologous Red Blood Cells into Peripheral Vein, Percutaneous Approach (ICD-10-PCS; principal; 2019-11-20)
DX: I13.0 Hypertensive heart and chronic kidney disease with heart failure and stage 1 through stage 4 chronic kidney disease, or unspecified chronic kidney disease (principal); I50.33 Acute on chronic diastolic (congestive) heart failure; J96.11 Chronic respiratory failure with hypoxia; J98.11 Atelectasis; I48.20 Chronic atrial fibrillation, unspecified; D62 Acute posthemorrhagic anemia; N18.4 Chronic kidney disease, stage 4 (severe); L03.115 Cellulitis of right lower limb; L03.116 Cellulitis of left lower limb; E11.51 Type 2 diabetes mellitus with diabetic peripheral angiopathy without gangrene; J44.9 Chronic obstructive pulmonary disease, unspecified; R33.9 Retention of urine, unspecified; I25.10 Atherosclerotic heart disease of native coronary artery without angina pectoris; I27.20 Pulmonary hypertension, unspecified; E11.621 Type 2 diabetes mellitus with foot ulcer; E78.5 Hyperlipidemia, unspecified; D63.1 Anemia in chronic kidney disease; K44.9 Diaphragmatic hernia without obstruction or gangrene; N40.1 Benign prostatic hyperplasia with lower urinary tract symptoms; I34.0 Nonrheumatic mitral (valve) insufficiency; D69.6 Thrombocytopenia, unspecified; Z95.1 Presence of aortocoronary bypass graft; K59.00 Constipation, unspecified
CPT/HCPCS: 36415; 36430; 36511; 70450-TC; 71045-TC-FY; 71046-TC-FY; 73030-TC-RT-FY; 73502-TC-LT-FY; 73502-TC-RT-FY; 73650-TC-RT-FY; 76705-TC; 80048; 80053; 82105; 82172; 82550; 82728; 82977; 83010; 83516; 83540; 83550; 83735; 83880; 83883; 84100; 84443; 84460; 84484; 84550; 85025; 85044; 85610; 85730; 86038; 86704; 86706; 86707; 86708; 86709; 86850; 86900; 86901; 86922; 87040; 87070; 87186; 87205; 87340; 87522; 87902; 93005; 93010; 93970-TC; 94640; 97116-GP; 97161-GP; 99285-25; J0131; J0885; J1439; P9038; P9058; U0003

== ENCOUNTER 2020-01-16 15:34 | Inpatient (IN) | payer OTHER, MEDICARE ==
--- NOTE | 2020-01-16 15:42 | PDOC ---
Rapid Medical Evaluation Time Seen by Provider: 01/16/20 15:40 Medical Evaluation: Allergies Allergy/AdvReac Type Severity Reaction Status Date / Time black pepper Allergy Verified 01/16/20 15:36 Penicillins Allergy Rash Verified 01/16/20 15:36 RED PEPPER Allergy Uncoded 01/16/20 15:36 Vital Signs Temp Pulse Resp BP Pulse Ox 98.1 F 71 20 150/72 94 L 01/16/20 15:37 01/16/20 15:37 01/16/20 15:37 01/16/20 15:37 01/16/20 15:37 01/16/20 15:40 CC: right foot getting worse since last week, hx of ulcers to area, no fever, Exam: rt foot with dressing, 2+ post tib pulse and warm to touch Plan: labs, xray, iv, wound cx Discharge Disposition - Diagnosis Wound of right foot - Referrals - Patient Instructions - Post Discharge Activity
--- NOTE | 2020-01-16 17:05 | PDOC ---
History of Present Illness - General Chief Complaint: Wound Stated Complaint: INFECTION Time Seen by Provider: 01/16/20 15:40 History Source: Patient, Old Records Exam Limitations: No Limitations - History of Present Illness Initial Comments: 01/16/20 17:03 89y M with PMH of CAD, CABG, AVR, COPD O2 dependent (3L), OM, TIA, CKD, PAD, LE cellulitis/foot infection presenting to the ER for worsening foot infection and pain. Pt was admitted in November 2019 and was on IV antibiotics. He saw his commercial real estate underwriter last week who cut open blister and drained it. He was given a Zpack to take. Per pt and , the pain is getting worse and the foot appears worse than usual. Endorses swelling of the R toes and pain in the foot. Denies numbness/tingling, fever, chills, back pain, chest pain, sob, abdominal pain, decreased appetite, headaches. PMD: Itz Cards: Rubina Podiatry: Shabana PMH: see hpi PSH: see hpi Meds: see med rec, on coumadin Allergies: PCN Past History - Medical History Allergies/Adverse Reactions: Allergies Allergy/AdvReac Type Severity Reaction Status Date / Time black pepper Allergy Verified 01/16/20 15:36 Penicillins Allergy Rash Verified 01/16/20 15:36 RED PEPPER Allergy Uncoded 01/16/20 15:36 Home Medications: Ambulatory Orders Docusate Sodium [Colace] 100 mg PO BID 06/16/17 Terazosin HCl 4 mg PO HS 06/16/17 Acetaminophen [Tylenol] 650 mg PO PRN 11/18/19 Budesonide/Formeterol Fumarate [SYMBICORT 160/4.5mcg -] 1 puff IN QID 11/18/19 Latanoprost/Pf [Latanoprost 0.005% Eye Drop] 1 drop OU HS 11/18/19 Tramadol HCl 50 mg PO PRN 11/18/19 Albuterol 2.5/Ipratropium 0.5 [Duoneb -] 1 amp NEB RQID amp 11/24/19 Lactobacillus Acidophilus [Bacid -] 1 tab PO DAILY tab 11/24/19 Lidocaine 5% Top. Ointment [Xylocaine 5% Top. Ointment -] 1 applic TP BID PRN tube 11/24/19 Pantoprazole Sodium [Protonix -] 40 mg PO DAILY tablet.ec 11/24/19 Potassium Chloride [K-Dur -] 40 meq PO AM tablet.er 11/24/19 Atenolol [Tenormin] 25 mg PO BID 01/16/20 Atorvastatin Ca [Lipitor] 20 mg PO HS 01/16/20 Bifidobacterium Infantis [Align] 10.5 mg PO DAILY 01/16/20 Bumetanide 2 mg PO BID 01/16/20 Warfarin Na [Coumadin -] 2 mg PO DAILY@1800 01/16/20 hydrALAZINE HCL [Apresoline -] 25 mg PO TID 01/16/20 Anemia: Yes Asthma: No Cancer: No Cardiac Disorders: Yes (CABG, valve replacement) CVA: Yes () COPD: No CHF: Yes DVT: Yes Dementia: No Diabetes: Yes (borderline diabetic) GI Disorders: No Disorders: Yes (see's dr arias for kidneys, creatine elevated.) HTN: Yes Hypercholesterolemia: Yes Liver Disease: No Seizures: No Thyroid Disease: No - Surgical History Abdominal Surgery: No Appendectomy: No Cardiac Surgery: Yes (CABG, 1997 AORTIV VALVE REPLACED,TRIPLE BYPASS IN ) Cholecystectomy: No Lung Surgery: No Neurologic Surgery: No Orthopedic Surgery: No - Immunization History Td Vaccination: Yes Immunization Up to Date: Yes - Psycho-Social/Smoking History Smoking Status: Yes (40 YRS QUIT) Smoking History: Former smoker Have you smoked in the past 12 months: No Number of Cigarettes Smoked Daily: 0 If you are a former smoker, when did you quit?: 45 YEARS Information on smoking cessation initiated: No 'Breaking Loose' booklet given: 10/10/12 - Substance Abuse Hx (Audit-C & DAST Scrn) How often the patient has a drink containing alcohol: Never Score: In Men: 4 or > Positive; In Women: 3 or > Positive: 0 Screen Result (Pos requires Nsg. Audit-10AR): Negative In the last yr the pt used illegal drug/Rx for NonMed reason: No Score: Yes response is considered Positive: 0 Screen Result (Positive result requires Nsg. DAST-10): Negative Review of Systems - Review of Systems Constitutional: No: Symptoms Reported HEENTM: No: Symptoms Reported Respiratory: No: Symptoms reported Cardiac (ROS): No: Symptoms Reported ABD/GI: No: Symptoms Reported Musculoskeletal: Yes: See HPI Integumentary: Yes: See HPI Neurological: No: Symptoms reported *Physical Exam - Vital Signs Last Vital Signs Temp Pulse Resp BP Pulse Ox 98.1 F 71 20 150/72 94 L 01/16/20 15:37 01/16/20 15:37 01/16/20 15:37 01/16/20 15:37 01/16/20 15:37 - Physical Exam General Appearance: Yes: Nourished, Appropriately Dressed. No: Apparent Distress HEENT: positive: EOMI, FRANK. negative: Scleral Icterus (R), Scleral Icterus (L) Neck: positive: Trachea midline, Supple. negative: Lymphadenopathy (R), Ly mphadenopathy (L) Respiratory/Chest: positive: Lungs Clear, Normal Breath Sounds. negative: Crackles, Rales, Rhonchi, Stridor, Wheezing Cardiovascular: positive: Regular Rhythm, Regular Rate, S1, S2. negative: Edema, JVD, Murmur Vascular Pulses: Dorsalis-Pedis (R): 1+, Doralis-Pedis (L): 1+ Gastrointestinal/Abdominal: positive: Normal Bowel Sounds, Soft. negative: Tender Musculoskeletal: negative: CVA Tenderness, CVA Tenderness (L), Decreased Range of Motion Extremity: positive: Pedal Edema, Swelling, Erythema, Other (bileteral LE edema and erythema to mid calf bilaterally. R foot with edematous toes, pain with passive movement and touch. punctate wound on plantar surface, exudative material between toes. White/yellow skin which is thickened on plantar surface near great toe) Integumentary: positive: Normal Color, Dry, Warm Neurologic: positive: youth counselor II-XII NML intact, Fully Oriented, Alert, Normal Mood/Affect, Normal Response, Motor Strength / ED Treatment Course - LABORATORY CBC & Chemistry Diagram: 01/16/20 16:40 01/16/20 16:40 Medical Decision Making - Medical Decision Making 01/16/20 18:50 89y M with pmh of cad, avr, copd, chronic le wounds/cellulitis presenting to the ER today for worsening foot pain and infection. vitals wnl Pe: punctate wound on plantar surface near 1st/2nd metatarsal. toe edema and pain with motion. suspect osteo+/- cellulitis. no creptius. -labs ordered by rme, added esr/crp and cultures. K 2.7, will give 80meq po K. no ekg changes, similar to prior ekg. elevated esr and crp. hgb and cr at baseline. INR 5, no active bleeding, will hold warfarin dose; does not require aggressive reversal at this time. id consulted by pmd; recommended vanc and meropenem. pt given pain control, will admit Discharge - Discharge Information Problems reviewed: Yes Clinical Impression/Diagnosis: Wound of right foot, Hypokalemia, Supratherapeutic INR Condition: Good - Admission Yes - Follow up/Referral Referrals: Linh Mobley MD [Primary Care Provider] - - Patient Discharge Instructions - Post Discharge Activity
[2020-01-16 17:12] LABS: BASO % 0.7 % (0-2.0); EOS % 2.6 % (0-4.5); HEMATOCRIT 29.2 % (35.4-49); HEMOGLOBIN 9.4 GM/dL (11.7-16.9); MCH 28.9 pg (25.7-33.7); MCHC 32.4 g/dl (32.0-35.9); MEAN CELL VOLUME 89.4 fl (80-96); MONO % 11.4 % (3.8-10.2); NEUT % 76.3 % (42.8-82.8); PLATELET COUNT 180 K/MM3 (134-434); RBC 3.27 M/mm3 (4.00-5.60); RDW 20.6 % (11.9-15.9)
[2020-01-16 17:19] LABS: PROTHROMBIN TIME (PATIENT) 61.9 SEC (9.7-13.0)
[2020-01-16] MEDS ORDERED: morphine CARPU-JECT 4 MG/1 ML DISP.SYRIN IVPUSH ONE (17:33)
[2020-01-16 17:38] LABS: ALBUMIN 2.6 g/dl (3.4-5.0); BILIRUBIN,TOTAL 0.5 mg/dL (0.2-1); BLOOD UREA NITROGEN 53.9 mg/dL (7-18); CALCIUM 8.5 mg/dL (8.5-10.1); CREATININE 1.9 mg/dL (0.55-1.3); TOT PROT 6.6 g/dl (6.4-8.2)
[2020-01-16] MEDS ORDERED: MORPHINE SULFATE 2 MG/ML VIAL ONE (17:40)
[2020-01-16 17:41] LABS: POTASSIUM 2.6 mmol/L (3.5-5.1)
[2020-01-16] MEDS ORDERED: POTASSIUM CHLORIDE TABS 20 MEQ TABLET.ER (FP) PO ONE (17:54)
[2020-01-16 18:05] LABS: INR 5.16 (0.83-1.09)
[2020-01-16] MEDS ORDERED: POTASSIUM CHLORIDE ORAL LIQUID 20 MEQ/15 ML ONE (18:24)
[2020-01-16] MEDS ORDERED: MEROPENEM 1 GM in DEXTROSE 5%-WATER 100 ML IVPB ONE (18:44)
[2020-01-16] MEDS ORDERED: VANCOMYCIN 1 GM in D5W (PRE-DOCKED) 1,000 MG/250 ML IVPB ONE (18:44)
--- NOTE | 2020-01-16 18:48 | PDOC ---
Attending Attestation - Resident Resident Name: Trisha Quarles - ED Attending Attestation I have performed the following: I have examined & evaluated the patient, The case was reviewed & discussed with the resident, I agree w/resident's findings & plan, Exceptions are as noted - HPI HPI: 01/16/20 18:48 Agree with resident hpi - Physicial Exam PE: 01/16/20 18:48 Agree with resident exam - Medical Decision Making 01/16/20 18:48 89yo M hx CAD, CABG, AVR, COPD O2 dependent (3L), OM, TIA, CKD, PAD, LE cellulitis/foot infection presents to the ED with concern for progressive foot infection +deep puncture wound on plantar surface with erythema, warmth. Concern for osteo. No crepitus or streaking up the extremity to suggest nec fasc and pt with no systemic sxs. Plan for labs, XR, IV abx per Dr. Banks's recommendations, admit Discharge - Discharge Information Problems reviewed: Yes Clinical Impression/Diagnosis: Wound of right foot, Hypokalemia, Supratherapeutic INR Condition: Good - Follow up/Referral - Patient Discharge Instructions - Post Discharge Activity
[2020-01-16] MEDS ORDERED: MEROPENEM 1 GM VIAL (RESTRICTED TO ID) IVPB ONE (19:25)
--- NOTE | 2020-01-16 19:55 | HP ---
Admitting History and Physical - Primary Care Physician PCP: Linh Mobley - Admission Chief Complaint: Foot Infection, Foot Pain History of Present Illness: This is a 89 y/o male with significant past medical history of COPD (3L), HTN, TIA, CAD s/p CABG, AVR (on Coumadin), CKD, PAD, Osteomyelitis, LE Cellulitis, recent admission for Cellulitis 11/2019. Who presents to the ED for worsening right foot infection and pain. Patient reports he was seen by his Environmental Aid last week, who I/D an open blister, given [id number]. The patient reports that the foot is not improving, he is having increased pain and swelling of his right toes. 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 ), Deep Vein Thrombosis, HTN, Hyperlipdemia, Other (AAA, PAD) Pulmonary: Yes: COPD, O2 Dependent Gastrointestinal: Yes: Diverticulosis, Gastritis, Hiatal Hernia Hepatobiliary: Yes: Cholelithiasis, Hepatitis C (transfusion acquired, ? 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) Rheumatology: Yes: Gout Dermatology: Yes: Cellulitis (of lower extremites) - Past Surgical History Past Surgical History: Yes: AAA Repair, Bypass (RLE), CABG, Carotid Endarterectomy (right), Cataract Removal, Colonoscopy, Upper Endoscopy, Valve Replacement (bioAVR 1983 x 2, 1997) - Smoking History Smoking history: Former smoker Have you smoked in the past 12 months: No Aproximately how many cigarettes per day: 0 If you are a former smoker, when did you quit?: 45 YEARS - Alcohol/Substance Use Hx Alcohol Use: No History of Substance Use: reports: None - Social History Usual Living Arrangement: Yes: With Spouse ADL: Independent 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 [employer] History of Recent Travel: No Home Medications - Allergies Allergies/Adverse Reactions: Allergies Allergy/AdvReac Type Severity Reaction Status Date / Time black pepper Allergy Verified 01/16/20 15:36 Penicillins Allergy Rash Verified 01/16/20 15:36 RED PEPPER Allergy Uncoded 01/16/20 15:36 - Home Medications Home Medications: Ambulatory Orders Docusate Sodium [Colace] 100 mg PO BID 06/16/17 Terazosin HCl 4 mg PO HS 06/16/17 Acetaminophen [Tylenol] 650 mg PO PRN 11/18/19 Budesonide/Formeterol Fumarate [SYMBICORT 160/4.5mcg -] 1 puff IN QID 11/18/19 Latanoprost/Pf [Latanoprost 0.005% Eye Drop] 1 drop OU HS 11/18/19 Tramadol HCl 50 mg PO PRN 11/18/19 Albuterol 2.5/Ipratropium 0.5 [Duoneb -] 1 amp NEB RQID amp 11/24/19 Lactobacillus Acidophilus [Bacid -] 1 tab PO DAILY tab 11/24/19 Lidocaine 5% Top. Ointment [Xylocaine 5% Top. Ointment -] 1 applic TP BID PRN tube 11/24/19 Pantoprazole Sodium [Protonix -] 40 mg PO DAILY tablet.ec 11/24/19 Potassium Chloride [K-Dur -] 40 meq PO AM tablet.er 11/24/19 Atenolol [Tenormin] 25 mg PO BID 01/16/20 Atorvastatin Ca [Lipitor] 20 mg PO HS 01/16/20 Bifidobacterium Infantis [Align] 10.5 mg PO DAILY 01/16/20 Bumetanide 2 mg PO BID 01/16/20 Warfarin Na [Coumadin -] 2 mg PO DAILY@1800 01/16/20 hydrALAZINE HCL [Apresoline -] 25 mg PO TID 01/16/20 Family Medical History Family History: Unable to Obtain Review of Systems - Review of Systems Constitutional: reports: No Symptoms Eyes: reports: No Symptoms HENT: reports: No Symptoms Neck: reports: No Symptoms Cardiovascular: reports: Edema Respiratory: reports: No Symptoms Gastrointestinal: reports: No Symptoms Genitourinary: reports: No Symptoms Breasts: reports: No Symptoms Reported Musculoskeletal: reports: Extremity Pain Integumentary: reports: Erythema, Wound Neurological: reports: No Symptoms Endocrine: reports: No Symptoms Hematology/Lymphatic: reports: No Symptoms Psychiatric: reports: No Symptoms Pain Intensity: 6 Physical Examination Vital Signs: Vital Signs Temperature 98.1 F 01/16/20 15:37 Pulse Rate 71 01/16/20 15:37 Respiratory Rate 20 01/16/20 15:37 Blood Pressure 150/72 01/16/20 15:37 O2 Sat by Pulse Oximetry (%) 94 L 01/16/20 15:37 Constitutional: Yes: No Distress, Calm Eyes: Yes: Conjunctiva Clear, EOM Intact, PERRL HENT: Yes: Atraumatic, Normocephalic Neck: Yes: Supple, Trachea Midline Cardiovascular: Yes: Pulse Irregular, Murmur, S1, S2 Respiratory: Yes: Diminished, Rhonchi, SOB on Exertion Gastrointestinal: Yes: Soft, Abdomen, Obese, Hypoactive Bowel Sounds ...Rectal Exam: Yes: Deferred Renal/: Yes: WNL Breast(s): Yes: WNL Musculoskeletal: Yes: WNL Extremities: Yes: WNL Edema: Yes Edema: LLE: 2+, RLE: 2+ Peripheral Pulses WNL: Yes Integumentary: Yes: Erythema, Pressure Ulcer, Venous Stasis Changes Wound/Incision: Yes: Open to air, Reddened Neurological: Yes: WNL, Alert, Oriented, Cran Nerves II-XII Intact ...Motor Strength: WNL Psychiatric: Yes: WNL, Alert, Oriented Labs: CBC, BMP 01/16/20 16:40 01/16/20 16:40 Intake & Output 01/14/20 01/15/20 01/16/20 01/17/20 23:59 23:59 23:59 23:59 Weight 74.752 kg Laboratory Results - last 24 hr 01/16/20 01/16/20 01/16/20 16:36 16:40 16:40 WBC 7.0 RBC 3.27 L Hgb 9.4 L Hct 29.2 L MCV 89.4 MCH 28.9 MCHC 32.4 RDW 20.6 H Plt Count 180 D MPV 8.0 D Absolute Neuts (auto) 5.4 Neutrophils % 76.3 Lymphocytes % 9.0 Monocytes % 11.4 H Eosinophils % 2.6 Basophils % 0.7 Nucleated RBC % 0 ESR 90 H PT with INR 61.90 H INR 5.16 H* Sodium Potassium Chloride Carbon Dioxide Anion Gap BUN Creatinine Est GFR (CKD-EPI)AfAm Est GFR (CKD-EPI)NonAf Random Glucose Lactic Acid Calcium Magnesium Total Bilirubin AST ALT Alkaline Phosphatase C-Reactive Protein Total Protein Albumin 01/16/20 01/16/20 01/16/20 16:40 16:40 16:40 WBC RBC Hgb Hct MCV MCH MCHC RDW Plt Count MPV Absolute Neuts (auto) Neutrophils % Lymphocytes % Monocytes % Eosinophils % Basophils % Nucleated RBC % ESR PT with INR INR Sodium 136 Potassium 2.6 L* Chloride 92 L Carbon Dioxide 37 H Anion Gap 8 BUN 53.9 H Creatinine 1.9 H Est GFR (CKD-EPI)AfAm 35.44 Est GFR (CKD-EPI)NonAf 30.58 Random Glucose 105 Lactic Acid 2.0 Calcium 8.5 Magnesium 2.1 Total Bilirubin 0.5 AST 22 ALT 15 Alkaline Phosphatase 108 C-Reactive Protein 13.5 H Cancelled Total Protein 6.6 Albumin 2.6 L 01/16/20 23:45 WBC RBC Hgb Hct MCV MCH MCHC RDW Plt Count MPV Absolute Neuts (auto) Neutrophils % Lymphocytes % Monocytes % Eosinophils % Basophils % Nucleated RBC % ESR PT with INR INR Sodium 138 Potassium 2.9 L* Chloride 93 L Carbon Dioxide 36 H Anion Gap 8 BUN 53.8 H Creatinine 2.0 H Est GFR (CKD-EPI)AfAm 33.31 Est GFR (CKD-EPI)NonAf 28.74 Random Glucose 188 H Lactic Acid Calcium 8.2 L Magnesium Total Bilirubin AST ALT Alkaline Phosphatase C-Reactive Protein Total Protein Albumin Current Medications Generic Name Dose Route Start Last Admin Trade Name Freq PRN Reason Stop Dose Admin Acetaminophen 650 mg 01/16/20 22:16 Tylenol - PO Q6H PRN PAIN LEVEL 4 - 6 Albuterol Sulfate 2 puff 01/16/20 22:03 Ventolin Hfa Inhaler - IH Q4H PRN SHORT OF BREATH/WHEEZING Atenolol 25 mg 01/16/20 22:00 01/16/20 22:59 Tenormin - PO 25 mg BID ARI Administration Atorvastatin Calcium 20 mg 01/16/20 22:00 01/16/20 22:51 Lipitor - PO 20 mg HS ARI Administration Budesonide/Formoterol Fumarate 1 puff 01/16/20 22:00 01/16/20 22:52 Symbicort 160/4.5mcg - IH 1 puff QID ARI Administration Docusate Sodium 100 mg 01/16/20 22:00 01/16/20 22:51 Colace - PO 100 mg BID ARI Administration Hydralazine HCl 25 mg 01/16/20 22:00 01/16/20 22:51 Apresoline - PO 25 mg TID ARI Administration Meropenem 1 gm/ Dextrose 100 mls @ 200 mls/hr 01/17/20 08:00 IVPB Q12H ARI Meropenem 1 gm/ Dextrose 100 mls @ 200 mls/hr 01/17/20 08:00 IVPB 01/17/20 20:29 Q12H ARI Lactobacillus Acidophilus 1 tab 01/17/20 10:00 Bacid - PO DAILY ARI Latanoprost 1 drop 01/16/20 22:00 01/16/20 22:51 Xalatan 0.005% Eye Drops - OU 1 drop HS ARI Administration Morphine Sulfate 2 mg 01/16/20 22:15 01/17/20 00:05 Morphine Sulfate IVPUSH 2 mg Q6H PRN Administration PAIN LEVEL 6-10 Pantoprazole Sodium 40 mg 01/17/20 10:00 Protonix - PO DAILY [facility] Potassium Chloride 40 meq 01/17/20 10:00 K-Dur - PO DAILY ARI Terazosin HCl 4 mg 01/16/20 22:20 Hytrin - PO HS ARI Imaging - Results Chest X-ray: Image Reviewed X-ray: Image Reviewed EKG: Image Reviewed Problem List - Problems (1) Wound of right foot Assessment/Plan: Likely due to Failed Outpatient Therapy hx Osteomyelitis with psedumonas Blood Cultures-pending Right Foot Xray image reviewed ESR and CRP are elevated No leukocytosis likely due to recent ABX Meropenem, Vancomycin given in ED, will continue Appreciate ID consult Appreciate Vascular consult Consider MRI Monitor CBC Neurovascular checks Elevate extremity Code(s): S91.301A - UNSPECIFIED OPEN WOUND, RIGHT FOOT, INITIAL ENCOUNTER (2) Hypokalemia Assessment/Plan: Likely secondary to medication K-dur given in ED Repeat BMP tonight K- rider, for K < 3 EKG reviewed Continue current med Monitor CMP Code(s): E87.6 - HYPOKALEMIA (3) Supratherapeutic INR Assessment/Plan: No active bleeding, no need for phytonadione Hold Warfarin tonight Series INRs INR goals 2.0~3.0 Code(s): R79.1 - ABNORMAL COAGULATION PROFILE (4) Bilateral lower extremity edema Assessment/Plan: Secondary to chronic diastolic HF Strict INOs Daily weight Hold diuretic 2/2 Hypokalemia Monitor CMP Code(s): R60.0 - LOCALIZED EDEMA (5) Anemia Assessment/Plan: stable Hgb 9.4 (baseline 9.2-13.0) Will transfuse if Hgb < 7.0 Monitor CBC Code(s): D64.9 - ANEMIA, UNSPECIFIED (6) CAD (coronary artery disease) Assessment/Plan: stable no angina, nl lvef s/p inferior CT 1997 s/p cabg x3 Continue home med Code(s): I25.10 - ATHSCL HEART DISEASE OF [place] CORONARY ARTERY W/O ANG PCTRS (7) CKD (chronic kidney disease) Assessment/Plan: Cr 1.9 at baseline (1.3~2.0) Monitor CMP Avoid Nephrotoxic drugs Consider Nephrology consult Code(s): N18.9 - CHRONIC KIDNEY DISEASE, UNSPECIFIED (8) Atrial fibrillation Assessment/Plan: stable [id number] EKG- afib 67bpm, RBBB Continue BB Hold Coumadin 2/2 supratherapeutic Code(s): I48.91 - UNSPECIFIED ATRIAL FIBRILLATION Qualifiers: Atrial fibrillation type: chronic (9) Hypertension Assessment/Plan: stable Continue home meds Monitor renal function Code(s): I10 - ESSENTIAL (PRIMARY) HYPERTENSION (10) COPD (chronic obstructive pulmonary disease) Assessment/Plan: stable Albuterol MDI Continue home meds O2 Chest Xray image reviewed Code(s): J44.9 - CHRONIC OBSTRUCTIVE PULMONARY DISEASE, UNSPECIFIED (11) History of AAA (abdominal aortic aneurysm) repair Assessment/Plan: stable Continue current meds Outpatient CT monitoring Code(s): Z98.890 - OTHER SPECIFIED POSTPROCEDURAL STATES (12) History of aortic valve replacement with bioprosthetic valve Assessment/Plan: nl function on 04/2019 Echo Hold Coumadin 2/2 supratherapeutic Monitor INRs Code(s): Z98.890 - OTHER SPECIFIED POSTPROCEDURAL STATES; Z95.3 - PRESENCE OF XENOGENIC HEART VALVE (13) Encounter for screening laboratory testing for COVID-19 virus Assessment/Plan: Low Risk COVID PCR-pending Isolation Precautions Code(s): Z11.59 - ENCOUNTER FOR SCREENING FOR OTHER VIRAL DISEASES Assessment/Plan This is a 89 y/o male with significant past medical history of COPD (3L), HTN, TIA, CAD s/p CABG, AVR (on Coumadin), CKD, PAD, Osteomyelitis, LE Cellulitis, recent admission for Cellulitis 11/2019. Admitted for Cellulitis of Right Foot, Supratherapeutic INR, Hypokalemia for further evaluation of their emergent condition. Plan: See Problem List FEN PO fluids as tolerated Replete lytes prn Low Na Diet DVT ppx OOB SCDs Hold Coumadin 2/2 Supratherapeutic INR Dispo: Requires Inpatient Care Visit type - Medication Review Med list reviewed for High Risk Meds patients 65 and older: Yes - Emergency Visit Emergency Visit: Yes ED Registration Date: 01/16/20 Care time: The patient presented to the Emergency Department on the above date and was hospitalized for further evaluation of their emergent condition. - New Patient This patient is new to me today: Yes Date on this admission: 01/16/20 - Critical Care Critical Care patient: No
[2020-01-16 20:32] LABS: MAGNESIUM 2.1 mg/dL (1.8-2.4)
[2020-01-16] MEDS ORDERED: TERAZOSIN HCL 2 MG CAPSULE PO SCH (22:00)
[2020-01-16] MEDS ORDERED: ALBUTEROL SO4 HFA INHALER IH PRN (22:03)
[2020-01-16] MEDS ORDERED: MORPHINE SULFATE 2 MG/ML VIAL IVPUSH PRN (22:15)
[2020-01-16] MEDS ORDERED: ACETAMINOPHEN 325 MG TABLET (FP) PO PRN (22:16)
[2020-01-16] MEDS: LATANOPROST 0.005% OPHTH SOLN 2.5ML BOTTLE OU SCH (22:51)
[2020-01-16] MEDS: DOCUSATE SODIUM 100 MG CAPSULE (FP) PO SCH (22:51)
[2020-01-16] MEDS: hydrALAZINE HCL 25 MG TABLET (FP) PO SCH (22:51)
[2020-01-16] MEDS: ATORVASTATIN CA 20 MG TABLET (FP) PO SCH (22:51)
[2020-01-16] MEDS: BUDESONIDE/FORMETEROL FUMARATE 160/4.5 mcg INHALER IH SCH (22:52)
[2020-01-16] MEDS: ATENOLOL 25 MG TABLET (FP) PO SCH (22:59)
[2020-01-17 00:33] LABS: BLOOD UREA NITROGEN 53.8 mg/dL (7-18); CALCIUM 8.2 mg/dL (8.5-10.1)
[2020-01-17 01:11] LABS: POTASSIUM 2.9 mmol/L (3.5-5.1)
[2020-01-17] MEDS ORDERED: KCL 10 MEQ IVPB 10 MEQ/100 ML INFUS.BAG IVPB SCH (01:30)
[2020-01-17] MEDS: hydrALAZINE HCL 25 MG TABLET (FP) PO SCH ×3 (06:02→22:14)
[2020-01-17 07:35] LABS: PROTHROMBIN TIME (PATIENT) 64.2 SEC (9.7-13.0)
[2020-01-17 07:41] LABS: BASO % 0.5 % (0-2.0); EOS % 2.3 % (0-4.5); HEMATOCRIT 25.3 % (35.4-49); HEMOGLOBIN 8.6 GM/dL (11.7-16.9); LYMPH % 5.9 % (8-40); MCH 30.1 pg (25.7-33.7); MCHC 33.9 g/dl (32.0-35.9); MEAN CELL VOLUME 88.7 fl (80-96); MEAN PLT VOLUME 7.9 fl (7.5-11.1); NEUT % 83.3 % (42.8-82.8); PLATELET COUNT 176 K/MM3 (134-434); RBC 2.85 M/mm3 (4.00-5.60); RDW 20.3 % (11.9-15.9); WHITE BLOOD COUNT 6.4 K/mm3 (4.0-10.0)
[2020-01-17 07:44] LABS: INR 5.35 (0.83-1.09)
[2020-01-17] MEDS ORDERED: MEROPENEM 1 GM in DEXTROSE 5%-WATER 100 ML IVPB SCH (08:00)
[2020-01-17 08:03] LABS: ALBUMIN 2.2 g/dl (3.4-5.0); BILIRUBIN,TOTAL 1.2 mg/dL (0.2-1); BLOOD UREA NITROGEN 51.3 mg/dL (7-18); CALCIUM 8.1 mg/dL (8.5-10.1); CREATININE 1.8 mg/dL (0.55-1.3); TOT PROT 5.6 g/dl (6.4-8.2)
[2020-01-17] MEDS ORDERED: MEROPENEM 1 GM VIAL (RESTRICTED TO ID) IVPB ONE (09:03)
[2020-01-17] MEDS ORDERED: DEXTROSE 5%-WATER 100 ML IVPB ONE ×2 (09:03→11:22)
[2020-01-17] MEDS: LACTOBACILLUS ACIDOPHILUS 1 TABLET PO SCH (09:16)
[2020-01-17] MEDS: ATENOLOL 25 MG TABLET (FP) PO SCH ×2 (09:16→22:14)
[2020-01-17] MEDS: DOCUSATE SODIUM 100 MG CAPSULE (FP) PO SCH ×2 (09:16→22:14)
[2020-01-17] MEDS: PANTOPRAZOLE 40 MG TABLET PO SCH (09:17)
[2020-01-17] MEDS: BUDESONIDE/FORMETEROL FUMARATE 160/4.5 mcg INHALER IH SCH ×4 (09:17→22:16)
[2020-01-17] MEDS ORDERED: POTASSIUM CHLORIDE TABS 20 MEQ TABLET.ER (FP) PO SCH (10:00)
--- NOTE | 2020-01-17 10:26 | PN ---
Progress Note, Physician Chief Complaint: Right foot wound History of Present Illness: This is a 89 y/o male with significant past medical history of COPD (3L), HTN, TIA, CAD s/p CABG, AVR (on Coumadin), CKD, PAD, Osteomyelitis, LE Cellulitis, recent admission for Cellulitis 11/2019. Who presents to the ED for worsening right foot infection and pain. Patient reports he was seen by his Senior Informatica Developer last week, who I/D an open blister, given Z-yajaira. The patient reports that the foot is not improving, he is having increased pain and swelling of his right toes. NAD tired, didn't sleep last night Right foot pain 08/25- received tylenol - Current Medication List Current Medications: Active Medications Acetaminophen (Tylenol -) 650 mg PO Q6H PRN PRN Reason: PAIN LEVEL 4 - 6 Last Admin: 01/17/20 09:23 Dose: 650 mg Documented by: Albuterol Sulfate (Ventolin Hfa Inhaler -) 2 puff IH Q4H PRN PRN Reason: SHORT OF BREATH/WHEEZING Atenolol (Tenormin -) 25 mg PO BID [facility] Last Admin: 01/17/20 09:16 Dose: 25 mg Documented by: Atorvastatin Calcium (Lipitor -) 20 mg PO HS [facility] Last Admin: 01/16/20 22:51 Dose: 20 mg Documented by: Budesonide/Formoterol Fumarate (Symbicort 160/4.5mcg -) 1 puff IH QID [facility] Last Admin: 01/17/20 09:17 Dose: 1 puff Documented by: Docusate Sodium (Colace -) 100 mg PO BID [facility] Last Admin: 01/17/20 09:16 Dose: 100 mg Documented by: Hydralazine HCl (Apresoline -) 25 mg PO TID [facility] Last Admin: 01/17/20 06:02 Dose: 25 mg Documented by: Meropenem 1 gm/ Dextrose 100 mls @ 200 mls/hr IVPB Q12H [facility] Meropenem 1 gm/ Dextrose 100 mls @ 200 mls/hr IVPB Q12H [facility] Stop: 01/17/20 20:29 Last Admin: 01/17/20 09:16 Dose: 200 mls/hr Documented by: Potassium Chloride (Potassium Chloride 10 Meq Premix Ivpb -) 10 meq in 100 mls @ 100 mls/hr IVPB Q60M [facility] Stop: 01/17/20 13:59 Lactobacillus Acidophilus (Bacid -) 1 tab PO DAILY [facility] Last Admin: 01/17/20 09:16 Dose: 1 tab Documented by: Latanoprost (Xalatan 0.005% Eye Drops -) 1 drop OU HS [facility] Last Admin: 01/16/20 22:51 Dose: 1 drop Documented by: Morphine Sulfate (Morphine Sulfate) 2 mg IVPUSH Q6H PRN PRN Reason: PAIN LEVEL 6-10 Last Admin: 01/17/20 00:05 Dose: 2 mg Documented by: Pantoprazole Sodium (Protonix -) 40 mg PO DAILY [facility] Last Admin: 01/17/20 09:17 Dose: 40 mg Documented by: Potassium Chloride (K-Dur -) 40 meq PO BID@0800,1400 [facility] Terazosin HCl (Hytrin -) 4 mg PO [facility] - Objective Vital Signs: Vital Signs Temperature 98.3 F 01/17/20 09:00 Pulse Rate 61 01/17/20 09:00 Respiratory Rate 19 01/17/20 09:00 Blood Pressure 159/75 01/17/20 09:00 O2 Sat by Pulse Oximetry (%) 94 L 01/17/20 09:00 Constitutional: Yes: Well Nourished, No Distress, Calm Cardiovascular: Yes: Pulse Irregular Respiratory: Yes: Regular, CTA Bilaterally Gastrointestinal: Yes: Normal Bowel Sounds, Soft Genitourinary: Yes: WNL Musculoskeletal: Yes: Muscle Weakness Extremities: Yes: Erythema (BLLE, R>L) Edema: Yes (BLLE non pitting edema) Peripheral Pulses WNL: Yes Integumentary: Yes: Erythema (BLLE, 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) Wound/Incision: Yes: Open to air Neurological: Yes: Alert, Oriented Psychiatric: Yes: Alert, Oriented Labs: CBC, BMP 01/17/20 06:55 01/17/20 06:55 INR, PTT INR 5.35 (0.83-1.09) H* 01/17/20 06:55 Problem List - Problems (1) Wound of right foot Assessment/Plan: -Podiatry consult -Vascular consult -IV abx -ID consult -ESR/CRP elevated -Obtain MRI RLE to r/o osteomyelitis -Also Check A1c -Wound culture -afebrile -Pain management Problems reviewed: Yes Code(s): S91.301A - UNSPECIFIED OPEN WOUND, RIGHT FOOT, INITIAL ENCOUNTER (2) Atrial fibrillation Assessment/Plan: -Hold warfarin for supratherapeutic INR -Check daily INR -No overt bleeding Problems reviewed: Yes Code(s): I48.91 - UNSPECIFIED ATRIAL FIBRILLATION Qualifiers: Atrial fibrillation type: chronic (3) CAD (coronary artery disease) Assessment/Plan: -Continue BB+ Statin Problems reviewed: Yes Code(s): I25.10 - ATHSCL HEART DISEASE OF [place] CORONARY ARTERY W/O ANG PCTRS (4) CKD (chronic kidney disease) Assessment/Plan: -Nephrology consult -Cr at baseline -monitor trend Problems reviewed: Yes Code(s): N18.9 - CHRONIC KIDNEY DISEASE, UNSPECIFIED (5) Cellulitis Assessment/Plan: -as above Problems reviewed: Yes Code(s): L03.90 - CELLULITIS, UNSPECIFIED (6) Hypokalemia Assessment/Plan: -KCL 10 meq x 3 + KCL 40 meq PO BID -monitor trend -Nephrology on board Problems reviewed: Yes Code(s): E87.6 - HYPOKALEMIA (7) Supratherapeutic INR Problems reviewed: Yes Code(s): R79.1 - ABNORMAL COAGULATION PROFILE Assessment/Plan See problem list
--- NOTE | 2020-01-17 10:26 | PN ---
Progress Note (short form) - Note Progress Note: ID CONSULT DICTATED BILATERAL LD CELLULITIS PCN ALLERGY ( HAS TOLERATED CEPHALOSPORINS IN PAST) S/P AVR CKD AWAIT C/S EMPIRIC CEFTRIAXONE/ VANCOMYCIN
--- NOTE | 2020-01-17 10:38 | EKG ---
Test Reason : Blood Pressure : / mmHG Vent. Rate : 067 BPM Atrial Rate : 104 BPM P-R Int : 000 ms QRS Dur : 164 ms QT Int : 486 ms P-R-T Axes : 000 -26 010 degrees QTc Int : 513 ms ATRIAL FIBRILLATION RIGHT BUNDLE BRANCH BLOCK ABNORMAL ECG WHEN COMPARED WITH ECG OF 18-NOV-2019 14:17, QRS DURATION HAS INCREASED T WAVE INVERSION MORE EVIDENT IN ANTERIOR LEADS Confirmed by Florencio Aguero MD ([id number]) on 01/17/2020 10:36:57 AM Referred By: Confirmed By:Florencio Aguero MD
--- NOTE | 2020-01-17 11:02 | CONS ---
DATE OF CONSULTATION: DATE OF DICTATION: 01/17/2020 INFECTIOUS DISEASE CONSULTATION HISTORY OF PRESENT ILLNESS: The patient is an 89-year-old male who is evaluated for bilateral lower extremity cellulitis. The patient reports worsening erythema, warmth and swelling of the lower extremities bilaterally for approximately 1 week. He had developed a blister on the plantar aspect of the right foot which was drained by Podiatry. He was given Zithromax. Over the past 1 week, he reports increased erythema, warmth and swelling of the lower extremities bilaterally associated with some bloody drainage from the blister site. He denies any associated fever or chills. He has had a history of cellulitis in the past as well as osteomyelitis. His last hospitalization was in November 2019, at which time he was treated for cellulitis of his lower extremities bilaterally. He had a history of PENICILLIN allergy; however, has tolerated cephalosporins in the past. At the present time, he is awake and alert and he is in no acute distress. He is not acutely toxic appearing. PAST MEDICAL HISTORY: Positive for COPD, coronary artery disease, TIA, chronic kidney disease, peripheral arterial disease, atrial fibrillation, hyperlipidemia, DVT, congestive heart failure, history of osteomyelitis of the lower extremity. PAST SURGICAL HISTORY: Status post aortic valve replacement with a bioprosthetic valve in 1983 with a revision in 1997, history of coronary artery bypass graft, history of pseudomonas osteomyelitis of the right foot in 2012. ALLERGIES: To PENICILLIN, develops rash. Patient has tolerated cephalosporins in the past. MEDICATIONS: Include meropenem, vancomycin, albuterol, Lipitor, hydralazine, Hytrin, atenolol, Tylenol. SOCIAL HISTORY: He resides in the community. He is a former smoker, nondrinker. SYSTEMS REVIEW: Neurologic: No loss of consciousness, seizure activity or focal weakness. Cardiac: Status post aortic valve replacement. Respiratory: Positive for COPD. Gastrointestinal: Negative vomiting or diarrhea. Genitourinary: Negative for urinary tract infection. LABORATORY DATA: White count 6.4, hematocrit 25.3, platelets 176. Creatinine 1.8. ESR 90. INR 5.3. Blood and wound cultures are pending. Previous cultures positive for serratia sensitive to ceftriaxone, enterococcus, coagulase-negative staph. A remote history of pseudomonas in 2013. PHYSICAL EXAMINATION: General: He is awake and alert. He is in no acute distress. He is not acutely toxic appearing. Vital Signs: Temperature 98.6, blood pressure 164/85, pulse 68, regular, respirations 18 per minute. HEENT: Sclerae are anicteric. Cardiac: Heart sounds S1-S2. A 2/6 dos santos systolic murmur. Lungs: Are clear bilaterally. No rhonchi, rales or wheezing. Abdomen: Is soft, nontender. Extremities: Examination of the lower extremities: There is confluent erythema, warmth and swelling of the lower extremities bilaterally from below the knee to the feet. There are no open areas. No fluctuance or crepitus. No lymphangitic streaking. There is a ruptured blister present on the plantar aspect of the right foot. No purulent drainage is noted. IMPRESSION: 1. Bilateral lower extremity cellulitis. 2. PENICILLIN allergy. 3. Status post aortic valve replacement. 4. Chronic kidney disease. RECOMMENDATIONS: Await culture results. Empiric antibiotic coverage with vancomycin and ceftriaxone adjusted for chronic kidney disease. Elevation. Analgesics. Patient has tolerated cephalosporins in the past. Local wound care. Will follow. Thank you for the kind referral. DONAVON CROCKER M.D. [id number]
[2020-01-17] MEDS: KCL 10 MEQ IVPB 10 MEQ/100 ML INFUS.BAG IVPB SCH ×3 (11:28→18:26)
[2020-01-17] MEDS: CEFTRIAXONE 2 GM in DEXTROSE 5%-WATER 100 ML IVPB SCH (11:28)
[2020-01-17] MEDS: POTASSIUM CHLORIDE TABS 20 MEQ TABLET.ER (FP) PO SCH (13:09)
[2020-01-17] MEDS ORDERED: PT OWN MED DRAWER 7, Y5N ONE ×2 (14:19→22:07)
[2020-01-17] MEDS: traMADol HCL 50 MG TABLET PO PRN (17:05)
--- NOTE | 2020-01-17 17:14 | CONSULT ---
Consult Consult Specialty:: Nephrology Reason for Consultation:: CKD - History of Present Illness Chief Complaint: worsening right foot infection History of Present Illness: Pt is an 89 year old man with pmhx of copd, htn, tia, cad, cabg, ckd, pad, and osto who presents with worsening right foot infection. He denies fevers or chills. He also complains of discharge from left leg. He has history of CKD. 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 he denies nsaids use. His renal function is close to baselin. He denies dysuria or hematuria. 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 ), Deep Vein Thrombosis, HTN, Hyperlipdemia, Other (AAA, PAD) Pulmonary: Yes: COPD, O2 Dependent Gastrointestinal: Yes: Diverticulosis, Gastritis, Hiatal Hernia Hepatobiliary: Yes: Cholelithiasis, Hepatitis C (transfusion acquired, ? 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) Rheumatology: Yes: Gout Dermatology: Yes: Cellulitis (of lower extremites) Additional Medical History: Glaucoma - Past Surgical History Past Surgical History: Yes: AAA Repair, Bypass (RLE), CABG, Carotid Endarterectomy (right), Cataract Removal, Colonoscopy, Upper Endoscopy, Valve Replacement (bioAVR 1983 x 1997) - Alcohol/Substance Use Hx Alcohol Use: No History of Substance Use: reports: None - Smoking History Smoking history: Former smoker Have you smoked in the past 12 months: No Aproximately how many cigarettes per day: 0 If you are a former smoker, when did you quit?: 45 YEARS - Social History Usual Living Arrangement: With Spouse ADL: Independent 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 [employer] History of Recent Travel: No Home Medications - Allergies Allergies/Adverse Reactions: Allergies Allergy/AdvReac Type Severity Reaction Status Date / Time black pepper Allergy Verified 01/16/20 15:36 Penicillins Allergy Rash Verified 01/16/20 15:36 RED PEPPER Allergy Uncoded 01/16/20 15:36 - Home Medications Home Medications: Ambulatory Orders Docusate Sodium [Colace] 100 mg PO BID 06/16/17 Terazosin HCl 4 mg PO HS 06/16/17 Acetaminophen [Tylenol] 650 mg PO PRN 11/18/19 Budesonide/Formeterol Fumarate [SYMBICORT 160/4.5mcg -] 1 puff IN QID 11/18/19 Latanoprost/Pf [Latanoprost 0.005% Eye Drop] 1 drop OU HS 11/18/19 Tramadol HCl 50 mg PO PRN 11/18/19 Albuterol 2.5/Ipratropium 0.5 [Duoneb -] 1 amp NEB RQID amp 11/24/19 Lactobacillus Acidophilus [Bacid -] 1 tab PO DAILY tab 11/24/19 Lidocaine 5% Top. Ointment [Xylocaine 5% Top. Ointment -] 1 applic TP BID PRN tube 11/24/19 Pantoprazole Sodium [Protonix -] 40 mg PO DAILY tablet.ec 11/24/19 Potassium Chloride [K-Dur -] 40 meq PO AM tablet.er 11/24/19 Atenolol [Tenormin] 25 mg PO BID 01/16/20 Atorvastatin Ca [Lipitor] 20 mg PO HS 01/16/20 Bifidobacterium Infantis [Align] 10.5 mg PO DAILY 01/16/20 Bumetanide 2 mg PO BID 01/16/20 Warfarin Na [Coumadin -] 2 mg PO DAILY@1800 01/16/20 hydrALAZINE HCL [Apresoline -] 25 mg PO TID 01/16/20 Family Medical History Family Hx Cardiac Disorders: Mother ( 81 of [place]), Father ( 78 of [place]) Review of Systems - Review of Systems Constitutional: reports: Malaise Eyes: reports: No Symptoms HENT: reports: No Symptoms Neck: reports: No Symptoms Cardiovascular: reports: No Symptoms Respiratory: reports: No Symptoms Gastrointestinal: reports: No Symptoms Genitourinary: reports: No Symptoms Musculoskeletal: reports: Other (right foot pain) Integumentary: reports: Erythema Neurological: reports: No Symptoms Endocrine: reports: No Symptoms Psychiatric: reports: Hallucinations Physical Exam Vital Signs: Vital Signs Temperature 98.3 F 01/17/20 13:18 Pulse Rate 71 09/01/20 13:18 Respiratory Rate 18 01/17/20 13:18 Blood Pressure 141/70 01/17/20 13:18 O2 Sat by Pulse Oximetry (%) 98 01/17/20 13:18 Constitutional: Yes: Calm Eyes: Yes: Conjunctiva Clear HENT: Yes: Atraumatic Neck: Yes: Supple Cardiovascular: Yes: S1, S2 Respiratory: Yes: CTA Bilaterally Gastrointestinal: Yes: Normal Bowel Sounds, Soft Renal/: Yes: WNL Musculoskeletal: Yes: WNL Edema: Yes Edema: LLE: 2+, RLE: 2+ Integumentary: Yes: Erythema, Venous Stasis Changes Neurological: Yes: Oriented Psychiatric: Yes: Oriented Labs: CBC, BMP 01/17/20 06:55 01/17/20 06:55 Laboratory Tests 11/23/19 11/24/19 01/16/20 08:05 07:40 16:40 Creatinine 1.9 H 1.8 H 1.9 H 01/16/20 01/17/20 23:45 06:55 Creatinine 2.0 H 1.8 H Imaging - Results Chest X-ray: Report Reviewed Assessment/Plan Current Medications Generic Name Dose Route Start Last Admin Trade Name Freq PRN Reason Stop Dose Admin Acetaminophen 1,000 mg 01/17/20 12:14 Tylenol - PO Q6H PRN PAIN LEVEL 1 - 3 Albuterol Sulfate 2 puff 01/16/20 22:03 Ventolin Hfa Inhaler - IH Q4H PRN SHORT OF BREATH/WHEEZING Atenolol 25 mg 01/16/20 22:00 01/17/20 09:16 Tenormin - PO 25 mg BID ARI Administration Atorvastatin Calcium 20 mg 01/16/20 22:00 01/16/20 22:51 Lipitor - PO 20 mg HS [facility] Administration Budesonide/Formoterol Fumarate 1 puff 01/16/20 22:00 01/17/20 13:16 Symbicort 160/4.5mcg - IH 1 puff QID ARI Administration Docusate Sodium 100 mg 01/16/20 22:00 01/17/20 09:16 Colace - PO 100 mg BID ARI Administration Hydralazine HCl 25 mg 01/16/20 22:00 01/17/20 13:09 Apresoline - PO 25 mg TID [facility] Administration Ceftriaxone Sodium 2 gm/ 100 mls @ 200 mls/hr 01/17/20 11:00 01/17/20 11:28 Dextrose IVPB 200 mls/hr DAILY [facility] Administration Protocol Vancomycin HCl 1,000 mg in 250 mls @ 166.667 mls/hr 01/17/20 22:00 Vancomycin (Pre-Docked) IVPB 01/17/20 23:29 ONCE ONE Protocol Lactobacillus Acidophilus 1 tab 01/17/20 10:00 01/17/20 09:16 Bacid - PO 1 tab DAILY [facility] Administration Latanoprost 1 drop 01/16/20 22:00 01/16/20 22:51 Xalatan 0.005% Eye Drops - OU 1 drop HS [facility] Administration Oxycodone HCl 5 mg 01/17/20 12:14 Roxicodone - PO Q6H PRN PAIN LEVEL 7 - 10 Pantoprazole Sodium 40 mg 01/17/20 10:00 01/17/20 09:17 Protonix - PO 40 mg DAILY [facility] Administration Potassium Chloride 40 meq 01/17/20 14:00 01/17/20 13:09 K-Dur - PO 40 meq BID@0800,1400 [facility] Administration Terazosin HCl 4 mg 01/16/20 22:20 Hytrin - PO HS [facility] Tramadol HCl 50 mg 01/17/20 12:14 01/17/20 17:05 Ultram - PO 50 mg Q6H PRN Administration PAIN LEVEL 4 - 6 1. CKD 2. LE edema 3. Heart failure 4. Recent LE cellulitis 5. Chronic anemia 6. Hypertension 7. CAD s/p CABG 8. hypokalemia Plan - replace potassium - repeat labs in am - monitor lytes - cont abx, renal dose meds - follow mri results - Dr Toth returning tomorrow - avoid nsaids
[2020-01-17] MEDS: oxyCODONE HCL 5 MG TABLET PO PRN (21:01)
[2020-01-17] MEDS ORDERED: VANCOMYCIN 1 GRAM (PRE-DOCKED) 1,000 MG/250 ML BAG IVPB ONE (22:00)
[2020-01-17] MEDS: ATORVASTATIN CA 20 MG TABLET (FP) PO SCH (22:14)
[2020-01-17] MEDS: LATANOPROST 0.005% OPHTH SOLN 2.5ML BOTTLE OU SCH (22:15)
[2020-01-17] MEDS: TERAZOSIN HCL 1 MG CAPSULE PO SCH (22:15)
[2020-01-17] MEDS: ACETAMINOPHEN 500 MG TABLET (FP) PO PRN (22:18)
[2020-01-18] MEDS: traMADol HCL 50 MG TABLET PO PRN (00:28)
[2020-01-18] MEDS: ACETAMINOPHEN 500 MG TABLET (FP) PO PRN (04:35)
[2020-01-18] MEDS: oxyCODONE HCL 5 MG TABLET PO PRN (04:35)
[2020-01-18] MEDS: hydrALAZINE HCL 25 MG TABLET (FP) PO SCH ×3 (05:21→22:28)
[2020-01-18 07:38] LABS: BASO % 0.7 % (0-2.0); EOS % 3.1 % (0-4.5); HEMOGLOBIN 8.2 GM/dL (11.7-16.9); LYMPH % 7.7 % (8-40); MCH 29.5 pg (25.7-33.7); MCHC 32.7 g/dl (32.0-35.9); MEAN CELL VOLUME 90.1 fl (80-96); MEAN PLT VOLUME 7.9 fl (7.5-11.1); MONO % 9.9 % (3.8-10.2); NEUT % 78.6 % (42.8-82.8); PLATELET COUNT 169 K/MM3 (134-434); RBC 2.78 M/mm3 (4.00-5.60); RDW 20.9 % (11.9-15.9); WHITE BLOOD COUNT 6.7 K/mm3 (4.0-10.0)
[2020-01-18 07:43] LABS: PROTHROMBIN TIME (PATIENT) 53.1 SEC (9.7-13.0)
[2020-01-18 07:55] LABS: INR 4.43 (0.83-1.09)
[2020-01-18 08:03] LABS: ALBUMIN 2.1 g/dl (3.4-5.0); BILIRUBIN,TOTAL 0.5 mg/dL (0.2-1); BLOOD UREA NITROGEN 51.8 mg/dL (7-18); CALCIUM 7.6 mg/dL (8.5-10.1); CREATININE 1.7 mg/dL (0.55-1.3); TOT PROT 5.4 g/dl (6.4-8.2)
[2020-01-18] MEDS ORDERED: DEXTROSE 5%-WATER 100 ML IVPB ONE (08:47)
[2020-01-18] MEDS: CEFTRIAXONE 2 GM in DEXTROSE 5%-WATER 100 ML IVPB SCH (09:20)
[2020-01-18] MEDS: DOCUSATE SODIUM 100 MG CAPSULE (FP) PO SCH ×2 (09:21→22:28)
[2020-01-18] MEDS: PANTOPRAZOLE 40 MG TABLET PO SCH (09:21)
[2020-01-18] MEDS: BUDESONIDE/FORMETEROL FUMARATE 160/4.5 mcg INHALER IH SCH ×4 (09:21→22:29)
[2020-01-18] MEDS: LACTOBACILLUS ACIDOPHILUS 1 TABLET PO SCH (09:21)
[2020-01-18] MEDS: POTASSIUM CHLORIDE TABS 20 MEQ TABLET.ER (FP) PO SCH ×3 (09:21→13:55)
[2020-01-18] MEDS: ATENOLOL 25 MG TABLET (FP) PO SCH ×2 (09:23→22:29)
[2020-01-18] MEDS ORDERED: PT OWN MED DRAWER 7, Y5N ONE ×2 (09:23→22:27)
--- NOTE | 2020-01-18 09:44 | PN ---
Progress Note, Physician - Current Medication List Current Medications: Active Medications Acetaminophen (Tylenol -) 1,000 mg PO Q6H PRN PRN Reason: PAIN LEVEL 1 - 3 Last Admin: 01/18/20 04:35 Dose: 1,000 mg Documented by: Albuterol Sulfate (Ventolin Hfa Inhaler -) 2 puff IH Q4H PRN PRN Reason: SHORT OF BREATH/WHEEZING Atenolol (Tenormin -) 25 mg PO BID [facility] Last Admin: 01/18/20 09:23 Dose: 25 mg Documented by: Atorvastatin Calcium (Lipitor -) 20 mg PO [facility] Last Admin: 01/17/20 22:14 Dose: 20 mg Documented by: Budesonide/Formoterol Fumarate (Symbicort 160/4.5mcg -) 1 puff IH QID [facility] Last Admin: 01/18/20 09:21 Dose: 1 puff Documented by: Docusate Sodium (Colace -) 100 mg PO BID [facility] Last Admin: 01/18/20 09:21 Dose: 100 mg Documented by: Hydralazine HCl (Apresoline -) 25 mg PO TID [facility] Last Admin: 01/18/20 05:21 Dose: 25 mg Documented by: Ceftriaxone Sodium 2 gm/ (Dextrose) 100 mls @ 200 mls/hr IVPB DAILY [facility]; Protocol Last Admin: 01/18/20 09:20 Dose: 200 mls/hr Documented by: Lactobacillus Acidophilus (Bacid -) 1 tab PO DAILY [facility] Last Admin: 01/18/20 09:21 Dose: 1 tab Documented by: Latanoprost (Xalatan 0.005% Eye Drops -) 1 drop OU [facility] Last Admin: 01/17/20 22:15 Dose: 1 drop Documented by: Oxycodone HCl (Roxicodone -) 5 mg PO Q6H PRN PRN Reason: PAIN LEVEL 7 - 10 Last Admin: 01/18/20 04:35 Dose: 5 mg Documented by: Pantoprazole Sodium (Protonix -) 40 mg PO DAILY [facility] Last Admin: 01/18/20 09:21 Dose: 40 mg Documented by: Potassium Chloride (K-Dur -) 40 meq PO BID@0800,1400 [facility] Last Admin: 01/18/20 09:21 Dose: 40 meq Documented by: Terazosin HCl (Hytrin -) 4 mg PO [facility] Last Admin: 01/17/20 22:15 Dose: 4 mg Documented by: Tramadol HCl (Ultram -) 50 mg PO Q6H PRN PRN Reason: PAIN LEVEL 4 - 6 Last Admin: 01/18/20 00:28 Dose: 50 mg Documented by: - Objective Vital Signs: Vital Signs Temperature 98.3 F 01/18/20 05:23 Pulse Rate 70 01/18/20 05:23 Respiratory Rate 22 H 01/18/20 05:23 Blood Pressure 144/90 01/18/20 05:23 O2 Sat by Pulse Oximetry (%) 98 01/18/20 05:23 Cardiovascular: Yes: S1, S2 Respiratory: Yes: Regular, CTA Bilaterally Gastrointestinal: Yes: Normal Bowel Sounds, Soft Labs: CBC, BMP 01/18/20 06:46 01/18/20 06:46 INR, PTT INR 4.43 (0.83-1.09) H* 01/18/20 06:46 Assessment/Plan - Problems (1) Wound of right foot Assessment/Plan: -Podiatry consult -Vascular consult -IV abx -ID consult -ESR/CRP elevated -Obtain MRI RLE to r/o osteomyelitis -Also Check A1c -Wound culture -afebrile -Pain management Problems reviewed: Yes Code(s): S91.301A - UNSPECIFIED OPEN WOUND, RIGHT FOOT, INITIAL ENCOUNTER (2) Atrial fibrillation Assessment/Plan: -Hold warfarin for supratherapeutic INR -Check daily INR -No overt bleeding Problems reviewed: Yes Code(s): I48.91 - UNSPECIFIED ATRIAL FIBRILLATION Qualifiers: Atrial fibrillation type: chronic (3) CAD (coronary artery disease) Assessment/Plan: -Continue BB+ Statin Problems reviewed: Yes Code(s): I25.10 - ATHSCL HEART DISEASE OF [place] CORONARY ARTERY W/O ANG PCTRS (4) CKD (chronic kidney disease) Assessment/Plan: -Nephrology consult -Cr at baseline -monitor trend Problems reviewed: Yes Code(s): N18.9 - CHRONIC KIDNEY DISEASE, UNSPECIFIED (5) Cellulitis Assessment/Plan: -as above Problems reviewed: Yes Code(s): L03.90 - CELLULITIS, UNSPECIFIED (6) Hypokalemia Assessment/Plan: -KCL 10 meq x 3 + KCL 40 meq PO BID -monitor trend -Nephrology on board Problems reviewed: Yes Code(s): E87.6 - HYPOKALEMIA (7) Supratherapeutic INR Problems reviewed: Yes Code(s): R79.1 - ABNORMAL COAGULATION PROFILE
--- NOTE | 2020-01-18 15:48 | CONSULT ---
- Consultation REQUESTING PROVIDER: CONSULT REQUEST: We have been asked to surgically evaluate this patient for Right foot wound. Hospitalist:Linh Mobley HISTORY OF PRESENT ILLNESS: The patient is a 89 yo male who has a history of multiple vascular procedures. He currently has had several admissions for RLE cellulitis. Last admission was in October for a cellulitis. The patient states that he has had this right foot ulcer for several weeks. He denies any fevers or chi lls. When ambulating the foot is draining and tender. He was seen by his [employer] Dr. Donald last week and had an I&D of his foot, PMHx: PVD, HTN, TIA, CAD, endocarditis, hep c, gastritis, chronic venous stasis ulcers PSHx: RLE revascularization sx, AAA repair 1997, s/p CABG & aortic valve repair x2, COPD, R CEA Home Medications Medication Instructions Recorded Docusate Sodium [Colace] 100 mg PO BID 06/16/17 Terazosin HCl 4 mg PO HS 06/16/17 Acetaminophen [Tylenol] 650 mg PO PRN 11/18/19 Budesonide/Formeterol Fumarate 1 puff IN QID 11/18/19 [SYMBICORT 160/4.5mcg -] Latanoprost/Pf [Latanoprost 0.005% 1 drop OU HS 11/18/19 Eye Drop] Tramadol HCl 50 mg PO PRN 11/18/19 Albuterol 2.5/Ipratropium 0.5 1 amp NEB RQID amp 11/24/19 [Duoneb -] Lactobacillus Acidophilus [Bacid -] 1 tab PO DAILY tab 11/24/19 Lidocaine 5% Top. Ointment 1 applic TP BID PRN tube 11/24/19 [Xylocaine 5% Top. Ointment -] Pantoprazole Sodium [Protonix -] 40 mg PO DAILY tablet.ec 11/24/19 Potassium Chloride [K-Dur -] 40 meq PO AM tablet.er 11/24/19 Atenolol [Tenormin] 25 mg PO BID 01/16/20 Atorvastatin Ca [Lipitor] 20 mg PO HS 01/16/20 Bifidobacterium Infantis [Align] 10.5 mg PO DAILY 01/16/20 Bumetanide 2 mg PO BID 01/16/20 Warfarin Na [Coumadin -] 2 mg PO DAILY@1800 08/31/20 hydrALAZINE HCL [Apresoline -] 25 mg PO TID 01/16/20 Allergies Allergy/AdvReac Type Severity Reaction Status Date / Time black pepper Allergy Verified 01/16/20 15:36 Penicillins Allergy Rash Verified 01/16/20 15:36 RED PEPPER Allergy Uncoded 01/16/20 15:36 REVIEW OF SYSTEMS: CONSTITUTIONAL: Absent: fever, chills CARDIOVASCULAR: Absent: chest pain, syncope, palpitations, irregular heart rate, lightheadedness, peripheral edema PHYSICAL EXAM: GENERAL: Awake, alert, and fully oriented, in no acute distress. ABDOMEN: healed midline abd incision LOWER EXTREMITIES: feet b/l cool to touch. venous stasis b/l. RLE with +1 femoral pulse with healed vertical groin incision. Popliteal pulse. ATP with doppler, unable to obtain DP/PT pulse. plantar surface with 1x1 cm ulcer and necrotic base, the wound is probed and the Q tip tracks to and comes out of the web space ulcer between 1 & 2nd toe. Great toe is a hammer toe lying over the 2nd toe. Plantar surface is macerated with sloughing skin between toes and peeling callous on plantar surface. Some purulent drainage with probe of wound. LLE: chornic venous stasis. +2 femoral pulse. Mild swelling to LLE. +2 DP pulse with doppler. NEUROLOGICAL: Normal speech, gait not observed while ambulating with PT. PSYCH: Cooperative. Good eye contact. Appropriate mood and affect. Vital Signs Temperature 97.6 F 01/18/20 13:37 Pulse Rate 70 01/18/20 13:37 Respiratory Rate 18 01/18/20 13:37 Blood Pressure 158/74 01/18/20 13:37 O2 Sat by Pulse Oximetry (%) 100 01/18/20 13:37 Lab Results WBC 6.7 K/mm3 (4.0-10.0) 01/18/20 06:46 RBC 2.78 M/mm3 (4.00-5.60) L 01/18/20 06:46 Hgb 8.2 GM/dL (11.7-16.9) L 01/18/20 06:46 Hct 25.0 % (35.4-49) L 01/18/20 06:46 MCV 90.1 fl (80-96) 01/18/20 06:46 MCHC 32.7 g/dl (32.0-35.9) 01/18/20 06:46 RDW 20.9 % (11.9-15.9) H 01/18/20 06:46 Plt Count 169 K/MM3 (134-434) 01/18/20 06:46 INR 4.43 (0.83-1.09) H* 01/18/20 06:46 Sodium 139 mmol/L (136-145) 01/18/20 06:46 Potassium 4.0 mmol/L (3.5-5.1) 01/18/20 06:46 Chloride 99 mmol/L (98-107) 01/18/20 06:46 Carbon Dioxide 35 mmol/L (21-32) H 01/18/20 06:46 Anion Gap 5 MMOL/L (8-16) L 01/18/20 06:46 BUN 51.8 mg/dL (7-18) H 01/18/20 06:46 Creatinine 1.7 mg/dL (0.55-1.3) H 01/18/20 06:46 Random Glucose 116 mg/dL (74-106) H 01/18/20 06:46 Calcium 7.6 mg/dL (8.5-10.1) L 01/18/20 06:46 Microbiology 01/16/20 17:13 Foot - Right Plantar Gram Stain - Final 01/16/20 16:40 Foot - Right Gram Stain - Final 11/18/19 19:00 Calf - Right Medial Gram Stain - Final 11/18/19 19:00 Calf - Right Medial Wound Culture - Final Serratia Marcescens 01/16/20 17:13 Foot - Right Plantar Wound Culture - Preliminary Presumptive Mrsa (Pbp2a Pos) Non Lactose Fermenting Gnb 01/16/20 17:10 Blood - Peripheral Venous Blood Culture - Preliminary NO GROWTH OBTAINED AFTER 24 HOURS, INCUBATION TO CONTINUE FOR 4 DAYS. 01/16/20 16:40 Foot - Right Wound Culture - Preliminary Presumptive Mrsa (Pbp2a Pos) Non Lactose Fermenting Gnb Lactose Fermenting Neg Bacilli CT scan: 2019 of abd pelvis: 6.3 supra and infra renal AAA. 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 Multiple vascular surgeries, AAA/CEA and RLE bypass. He has a right foot infection and cellulitis and drainage from the plantar wound. The wound extends from the plantar aspect at base of 2nd toe to the 1/2 toe web space. His [employer] has been consulted and will wait his consultation. For now the wound appears to be decompressed, recommend betadine gauze with kerlix. The patients extensive vascular history was discussed with Dr. Arguelles, he was seen by him on his last admission for a distal aneurysmal dilatation of his SFA stent his RLE. No surgical intervention was needed at the time. Arterial duplex ordered to evaluate the patency of his bypass Problems reviewed: Yes Code(s): S81.809A - UNSPECIFIED OPEN WOUND, UNSPECIFIED LOWER LEG, INIT ENCNTR Qualifiers: Laterality: right
[2020-01-18] MEDS ORDERED: EPOETIN ALFA 20,000 UNIT/1 ML VIAL SQ ONE (16:28)
--- NOTE | 2020-01-18 20:04 | PN ---
Progress Note, Physician Chief Complaint: Leg wound History of Present Illness: Seen and examined at the bedside awake and alert offers no acute complaints denies any sob, cp, fever, chills, N/V/D foot in dressing + swelling - Current Medication List Current Medications: Active Medications Acetaminophen (Tylenol -) 1,000 mg PO Q6H PRN PRN Reason: PAIN LEVEL 1 - 3 Last Admin: 01/18/20 04:35 Dose: 1,000 mg Documented by: Albuterol Sulfate (Ventolin Hfa Inhaler -) 2 puff IH Q4H PRN PRN Reason: SHORT OF BREATH/WHEEZING Atenolol (Tenormin -) 25 mg PO BID [facility] Last Admin: 01/18/20 09:23 Dose: 25 mg Documented by: Atorvastatin Calcium (Lipitor -) 20 mg PO [facility] Last Admin: 01/17/20 22:14 Dose: 20 mg Documented by: Budesonide/Formoterol Fumarate (Symbicort 160/4.5mcg -) 1 puff IH QID [facility] Last Admin: 01/18/20 17:42 Dose: 1 puff Documented by: Docusate Sodium (Colace -) 100 mg PO BID [facility] Last Admin: 01/18/20 09:21 Dose: 100 mg Documented by: Hydralazine HCl (Apresoline -) 25 mg PO TID [facility] Last Admin: 01/18/20 13:49 Dose: 25 mg Documented by: Ceftriaxone Sodium 2 gm/ (Dextrose) 100 mls @ 200 mls/hr IVPB DAILY [facility]; Protocol Last Admin: 01/18/20 09:20 Dose: 200 mls/hr Documented by: Lactobacillus Acidophilus (Bacid -) 1 tab PO DAILY [facility] Last Admin: 01/18/20 09:21 Dose: 1 tab Documented by: Latanoprost (Xalatan 0.005% Eye Drops -) 1 drop OU [facility] Last Admin: 01/17/20 22:15 Dose: 1 drop Documented by: Oxycodone HCl (Roxicodone -) 5 mg PO Q6H PRN PRN Reason: PAIN LEVEL 7 - 10 Last Admin: 01/18/20 04:35 Dose: 5 mg Documented by: Pantoprazole Sodium (Protonix -) 40 mg PO DAILY [facility] Last Admin: 01/18/20 09:21 Dose: 40 mg Documented by: Potassium Chloride (K-Dur -) 40 meq PO BID@0800,1400 [facility] Last Admin: 01/18/20 13:55 Dose: 40 meq Documented by: Terazosin HCl (Hytrin -) 4 mg PO HS [facility] Last Admin: 01/17/20 22:15 Dose: 4 mg Documented by: Tramadol HCl (Ultram -) 50 mg PO Q6H PRN PRN Reason: PAIN LEVEL 4 - 6 Last Admin: 01/18/20 00:28 Dose: 50 mg Documented by: - Objective Vital Signs: Vital Signs Temperature 97.8 F 01/18/20 18:08 Pulse Rate 74 01/18/20 18:08 Respiratory Rate 18 01/18/20 18:08 Blood Pressure 148/68 01/18/20 18:08 O2 Sat by Pulse Oximetry (%) 100 01/18/20 18:08 Constitutional: Yes: No Distress, Calm HENT: Yes: Atraumatic Neck: Yes: Supple Cardiovascular: Yes: Regular Rate and Rhythm Respiratory: Yes: Regular, CTA Bilaterally Gastrointestinal: Yes: Soft Extremities: Yes: Other (dressing in place on right leg) Edema: Yes Neurological: Yes: Alert, Oriented Labs: CBC, BMP 01/18/20 06:46 01/18/20 06:46 INR, PTT INR 4.43 (0.83-1.09) H* 01/18/20 06:46 Assessment/Plan 89 year old man with pmhx of copd, htn, tia, cad, cabg, ckd, pad, and osto who presents with worsening right foot infection. 1. CKD stage 4 2. LE Cellulitis and non-heading wound on foot 3. LE edema 4. PVD Renal function stable at this time Hypokalemia improved s/p supplamentation. Will resume IV Diuretics for management of Lower extremity edema Will convert to oral once edema is improved continue abx as needed for lower extremity wound/cellulitis Podiatry and vascular follow up Trend renal function and electrolytes daily Ko Toth DO
[2020-01-18] MEDS ORDERED: ONDANSETRON 4 MG/2 ML VIAL IVPUSH ONE (21:06)
--- NOTE | 2020-01-18 22:08 | PN ---
Progress Note, Physician Chief Complaint: AWAKE, ALERT IN BED OFFERS NO COMPLAINTS AFEBRILE AZOTEMIA IMPROVED VANCOMYCIN LEVEL NOTED - Current Medication List Current Medications: Active Medications Acetaminophen (Tylenol -) 1,000 mg PO Q6H PRN PRN Reason: PAIN LEVEL 1 - 3 Last Admin: 01/18/20 04:35 Dose: 1,000 mg Documented by: Albuterol Sulfate (Ventolin Hfa Inhaler -) 2 puff IH Q4H PRN PRN Reason: SHORT OF BREATH/WHEEZING Atenolol (Tenormin -) 25 mg PO BID [facility] Last Admin: 01/18/20 09:23 Dose: 25 mg Documented by: Atorvastatin Calcium (Lipitor -) 20 mg PO [facility] Last Admin: 01/17/20 22:14 Dose: 20 mg Documented by: Budesonide/Formoterol Fumarate (Symbicort 160/4.5mcg -) 1 puff IH QID [facility] Last Admin: 01/18/20 17:42 Dose: 1 puff Documented by: Docusate Sodium (Colace -) 100 mg PO BID [facility] Last Admin: 01/18/20 09:21 Dose: 100 mg Documented by: Furosemide (Lasix Injection -) 80 mg IVPB BID@0600,1400 [facility] Hydralazine HCl (Apresoline -) 25 mg PO TID [facility] Last Admin: 01/18/20 13:49 Dose: 25 mg Documented by: Ceftriaxone Sodium 2 gm/ (Dextrose) 100 mls @ 200 mls/hr IVPB DAILY [facility]; Protocol Last Admin: 01/18/20 09:20 Dose: 200 mls/hr Documented by: Lactobacillus Acidophilus (Bacid -) 1 tab PO DAILY [facility] Last Admin: 01/18/20 09:21 Dose: 1 tab Documented by: Latanoprost (Xalatan 0.005% Eye Drops -) 1 drop OU [facility] Last Admin: 01/17/20 22:15 Dose: 1 drop Documented by: Oxycodone HCl (Roxicodone -) 5 mg PO Q6H PRN PRN Reason: PAIN LEVEL 7 - 10 Last Admin: 01/18/20 04:35 Dose: 5 mg Documented by: Pantoprazole Sodium (Protonix -) 40 mg PO DAILY [facility] Last Admin: 01/18/20 09:21 Dose: 40 mg Documented by: Potassium Chloride (K-Dur -) 40 meq PO BID@0800,1400 [facility] Last Admin: 01/18/20 13:55 Dose: 40 meq Documented by: Terazosin HCl (Hytrin -) 4 mg PO HS [facility] Last Admin: 01/17/20 22:15 Dose: 4 mg Documented by: Tramadol HCl (Ultram -) 50 mg PO Q6H PRN PRN Reason: PAIN LEVEL 4 - 6 Last Admin: 01/18/20 00:28 Dose: 50 mg Documented by: - Objective Vital Signs: Vital Signs Temperature 98 F 01/18/20 21:43 Pulse Rate 76 01/18/20 21:43 Respiratory Rate 20 01/18/20 21:43 Blood Pressure 155/71 01/18/20 21:43 O2 Sat by Pulse Oximetry (%) 98 01/18/20 21:43 Constitutional: Yes: No Distress Eyes: Yes: Conjunctiva Clear Cardiovascular: Yes: Regular Rate and Rhythm, S1, S2 Respiratory: Yes: CTA Bilaterally Gastrointestinal: Yes: Normal Bowel Sounds, Soft, Tenderness Extremities: Yes: Other (+ B/L LE ERYTHEMA/WARMTH) Labs: CBC, BMP 01/18/20 06:46 01/18/20 06:46 INR, PTT INR 4.43 (0.83-1.09) H* 01/18/20 06:46 Assessment/Plan BILATERAL LE CELLULITIS AZOTEMIA PCN ALLERGY CKD S/P AVR CONTINUE CEFTRIAXONE RANDOM VANCOMYCIN LEVEL AM
[2020-01-18] MEDS: ATORVASTATIN CA 20 MG TABLET (FP) PO SCH (22:28)
[2020-01-18] MEDS: TERAZOSIN HCL 1 MG CAPSULE PO SCH (22:29)
[2020-01-18] MEDS: LATANOPROST 0.005% OPHTH SOLN 2.5ML BOTTLE OU SCH (22:29)
[2020-01-19] MEDS: FUROSEMIDE 40 MG/4 ML INJECTABLE VIAL IVPB SCH ×2 (06:35→14:34)
[2020-01-19] MEDS: hydrALAZINE HCL 25 MG TABLET (FP) PO SCH ×3 (06:36→22:18)
[2020-01-19 07:48] LABS: INR 3.24 (0.83-1.09); PROTHROMBIN TIME (PATIENT) 38.7 SEC (9.7-13.0)
[2020-01-19 08:19] LABS: ALBUMIN 2.1 g/dl (3.4-5.0); BILIRUBIN,TOTAL 0.4 mg/dL (0.2-1); BLOOD UREA NITROGEN 44.3 mg/dL (7-18); CALCIUM 8.1 mg/dL (8.5-10.1); CREATININE 1.5 mg/dL (0.55-1.3); POTASSIUM 5.1 mmol/L (3.5-5.1); TOT PROT 5.6 g/dl (6.4-8.2)
[2020-01-19 08:27] LABS: BASO % 0.3 % (0-2.0); EOS % 1.9 % (0-4.5); HEMATOCRIT 25.4 % (35.4-49); HEMOGLOBIN 8.2 GM/dL (11.7-16.9); LYMPH % 8.9 % (8-40); MCH 29.2 pg (25.7-33.7); MCHC 32.5 g/dl (32.0-35.9); MEAN CELL VOLUME 89.9 fl (80-96); MEAN PLT VOLUME 8.3 fl (7.5-11.1); MONO % 9.6 % (3.8-10.2); NEUT % 79.3 % (42.8-82.8); PLATELET COUNT 170 K/MM3 (134-434); RBC 2.82 M/mm3 (4.00-5.60); RDW 20.5 % (11.9-15.9); WHITE BLOOD COUNT 5.9 K/mm3 (4.0-10.0)
--- NOTE | 2020-01-19 08:45 | PN ---
Progress Note, Physician - Current Medication List Current Medications: Active Medications Acetaminophen (Tylenol -) 1,000 mg PO Q6H PRN PRN Reason: PAIN LEVEL 1 - 3 Last Admin: 01/18/20 04:35 Dose: 1,000 mg Documented by: Albuterol Sulfate (Ventolin Hfa Inhaler -) 2 puff IH Q4H PRN PRN Reason: SHORT OF BREATH/WHEEZING Atenolol (Tenormin -) 25 mg PO BID [facility] Last Admin: 01/18/20 22:29 Dose: 25 mg Documented by: Atorvastatin Calcium (Lipitor -) 20 mg PO HS [facility] Last Admin: 01/18/20 22:28 Dose: 20 mg Documented by: Budesonide/Formoterol Fumarate (Symbicort 160/4.5mcg -) 1 puff IH QID [facility] Last Admin: 01/18/20 22:29 Dose: 1 puff Documented by: Docusate Sodium (Colace -) 100 mg PO BID [facility] Last Admin: 01/18/20 22:28 Dose: 100 mg Documented by: Furosemide (Lasix Injection -) 80 mg IVPB BID@0600,1400 [facility] Last Admin: 01/19/20 06:35 Dose: 80 mg Documented by: Hydralazine HCl (Apresoline -) 25 mg PO TID [facility] Last Admin: 01/19/20 06:36 Dose: 25 mg Documented by: Ceftriaxone Sodium 2 gm/ (Dextrose) 100 mls @ 200 mls/hr IVPB DAILY [facility]; Protocol Last Admin: 01/18/20 09:20 Dose: 200 mls/hr Documented by: Lactobacillus Acidophilus (Bacid -) 1 tab PO DAILY [facility] Last Admin: 01/18/20 09:21 Dose: 1 tab Documented by: Latanoprost (Xalatan 0.005% Eye Drops -) 1 drop OU [facility] Last Admin: 01/18/20 22:29 Dose: 1 drop Documented by: Oxycodone HCl (Roxicodone -) 5 mg PO Q6H PRN PRN Reason: PAIN LEVEL 7 - 10 Last Admin: 01/18/20 04:35 Dose: 5 mg Documented by: Pantoprazole Sodium (Protonix -) 40 mg PO DAILY [facility] Last Admin: 01/18/20 09:21 Dose: 40 mg Documented by: Potassium Chloride (K-Dur -) 40 meq PO BID@0800,1400 [facility] Last Admin: 01/18/20 13:55 Dose: 40 meq Documented by: Terazosin HCl (Hytrin -) 4 mg PO HS [facility] Last Admin: 01/18/20 22:29 Dose: 4 mg Documented by: Tramadol HCl (Ultram -) 50 mg PO Q6H PRN PRN Reason: PAIN LEVEL 4 - 6 Last Admin: 01/18/20 00:28 Dose: 50 mg Documented by: - Objective Vital Signs: Vital Signs Temperature 97.9 F 01/19/20 05:56 Pulse Rate 79 01/19/20 05:56 Respiratory Rate 01/19/20 05:56 Blood Pressure 158/82 01/19/20 05:56 O2 Sat by Pulse Oximetry (%) 97 01/19/20 05:56 Cardiovascular: Yes: Murmur, S1, S2 Respiratory: Yes: Regular, CTA Bilaterally Gastrointestinal: Yes: Normal Bowel Sounds, Soft Labs: CBC, BMP 01/19/20 07:15 01/19/20 07:15 INR, PTT INR 3.24 (0.83-1.09) H 01/19/20 07:15 Assessment/Plan - Problems (1) Wound of right foot Assessment/Plan: -Podiatry consult -Vascular consult noted await duplex -IV abx -ID consult -ESR/CRP elevated - MRI RLE c/w osteomyelitis -Also Check A1c -Wound culture -afebrile -Pain management Problems reviewed: Yes Code(s): S91.301A - UNSPECIFIED OPEN WOUND, RIGHT FOOT, INITIAL ENCOUNTER (2) Atrial fibrillation Assessment/Plan: -Hold warfarin for supratherapeutic INR -Check daily INR -No overt bleeding Problems reviewed: Yes Code(s): I48.91 - UNSPECIFIED ATRIAL FIBRILLATION Qualifiers: Atrial fibrillation type: chronic (3) CAD (coronary artery disease) Assessment/Plan: -Continue BB+ Statin Problems reviewed: Yes Code(s): I25.10 - ATHSCL HEART DISEASE OF [place] CORONARY ARTERY W/O ANG PCTRS (4) CKD (chronic kidney disease) Assessment/Plan: -Nephrology consult -Cr at baseline -monitor trend Problems reviewed: Yes Code(s): N18.9 - CHRONIC KIDNEY DISEASE, UNSPECIFIED (5) Cellulitis Assessment/Plan: -as above Problems reviewed: Yes Code(s): L03.90 - CELLULITIS, UNSPECIFIED (6) Hypokalemia Assessment/Plan: -KCL 10 meq x 3 + KCL 40 meq PO BID -monitor trend -Nephrology on board Problems reviewed: Yes Code(s): E87.6 - HYPOKALEMIA (7) Supratherapeutic INR Problems reviewed: Yes Code(s): R79.1 - ABNORMAL COAGULATION PROFILE
[2020-01-19] MEDS ORDERED: DEXTROSE 5%-WATER 100 ML IVPB ONE (09:52)
[2020-01-19] MEDS: CEFTRIAXONE 2 GM in DEXTROSE 5%-WATER 100 ML IVPB SCH (10:23)
[2020-01-19] MEDS: ATENOLOL 25 MG TABLET (FP) PO SCH ×2 (10:24→22:18)
[2020-01-19] MEDS: BUDESONIDE/FORMETEROL FUMARATE 160/4.5 mcg INHALER IH SCH ×4 (10:24→22:19)
[2020-01-19] MEDS: POTASSIUM CHLORIDE TABS 20 MEQ TABLET.ER (FP) PO SCH ×2 (10:24→14:34)
[2020-01-19] MEDS: DOCUSATE SODIUM 100 MG CAPSULE (FP) PO SCH ×2 (10:24→22:18)
[2020-01-19] MEDS: LACTOBACILLUS ACIDOPHILUS 1 TABLET PO SCH (10:24)
[2020-01-19] MEDS: PANTOPRAZOLE 40 MG TABLET PO SCH (10:24)
[2020-01-19 10:42] LABS: MAGNESIUM 2.3 mg/dL (1.8-2.4); PHOSPHOROUS 2.1 mg/dL (2.5-4.9)
[2020-01-19] MEDS: traMADol HCL 50 MG TABLET PO PRN (12:12)
[2020-01-19] MEDS ORDERED: VANCOMYCIN 1 GRAM (PRE-DOCKED) 1,000 MG/250 ML BAG IVPB ONE (14:47)
--- NOTE | 2020-01-19 14:47 | PN ---
Progress Note, Physician Chief Complaint: AWAKE, ALERT IN BED OFFERS NO COMPLAINTS AFEBRILE WBC AZOTEMIA IMPROVED CR 1.5 VANCOMYCIN LEVEL NOTED 16.6 WOUND C/S MIXED, INCLUDING MRSA - Current Medication List Current Medications: Active Medications Acetaminophen (Tylenol -) 1,000 mg PO Q6H PRN PRN Reason: PAIN LEVEL 1 - 3 Last Admin: 01/18/20 04:35 Dose: 1,000 mg Documented by: Albuterol Sulfate (Ventolin Hfa Inhaler -) 2 puff IH Q4H PRN PRN Reason: SHORT OF BREATH/WHEEZING Atenolol (Tenormin -) 50 mg PO BID [facility] Atorvastatin Calcium (Lipitor -) 20 mg PO HS [facility] Last Admin: 01/18/20 22:28 Dose: 20 mg Documented by: Budesonide/Formoterol Fumarate (Symbicort 160/4.5mcg -) 1 puff IH QID [facility] Last Admin: 01/19/20 14:35 Dose: 1 puff Documented by: Docusate Sodium (Colace -) 100 mg PO BID [facility] Last Admin: 01/19/20 10:24 Dose: 100 mg Documented by: Furosemide (Lasix Injection -) 80 mg IVPB BID@0600,1400 [facility] Last Admin: 01/19/20 14:34 Dose: 80 mg Documented by: Hydralazine HCl (Apresoline -) 25 mg PO TID [facility] Last Admin: 01/19/20 14:34 Dose: 25 mg Documented by: Ceftriaxone Sodium 2 gm/ (Dextrose) 100 mls @ 200 mls/hr IVPB DAILY [facility]; Protocol Last Admin: 01/19/20 10:23 Dose: 200 mls/hr Documented by: Lactobacillus Acidophilus (Bacid -) 1 tab PO DAILY [facility] Last Admin: 01/19/20 10:24 Dose: 1 tab Documented by: Latanoprost (Xalatan 0.005% Eye Drops -) 1 drop OU [facility] Last Admin: 01/18/20 22:29 Dose: 1 drop Documented by: Oxycodone HCl (Roxicodone -) 5 mg PO Q6H PRN PRN Reason: PAIN LEVEL 7 - 10 Last Admin: 01/18/20 04:35 Dose: 5 mg Documented by: Pantoprazole Sodium (Protonix -) 40 mg PO DAILY [facility] Last Admin: 01/19/20 10:24 Dose: 40 mg Documented by: Potassium Chloride (K-Dur -) 40 meq PO BID@0800,1400 [facility] Last Admin: 01/19/20 14:34 Dose: 40 meq Documented by: Terazosin HCl (Hytrin -) 4 mg PO HS [facility] Last Admin: 01/18/20 22:29 Dose: 4 mg Documented by: Tramadol HCl (Ultram -) 50 mg PO Q6H PRN PRN Reason: PAIN LEVEL 4 - 6 Last Admin: 01/19/20 12:12 Dose: 50 mg Documented by: - Objective Vital Signs: Vital Signs Temperature 97.8 F 01/19/20 13:27 Pulse Rate 72 01/19/20 13:27 Respiratory Rate 20 01/19/20 13:27 Blood Pressure 152/89 01/19/20 13:27 O2 Sat by Pulse Oximetry (%) 100 01/19/20 13:27 Constitutional: Yes: No Distress Eyes: Yes: Conjunctiva Clear Cardiovascular: Yes: Regular Rate and Rhythm Respiratory: Yes: CTA Bilaterally Gastrointestinal: Yes: Normal Bowel Sounds, Soft Extremities: Yes: Other (DECREASED ERYTHEMA/ WARMTH/ SWELLING LE BILATERALLY) Labs: CBC, BMP 01/19/20 07:15 01/19/20 07:15 INR, PTT INR 3.24 (0.83-1.09) H 01/19/20 07:15 Assessment/Plan BILATERAL LE CELLULITIS IMPROVED AZOTEMIA IMPROVED PCN ALLERGY S/P AVR CONTINUE CEFTRIAXONE [place] VANCOMYCIN RANDOM VANCOMYCIN LEVEL AM
--- NOTE | 2020-01-19 16:20 | PN ---
Progress Note, Physician Chief Complaint: Leg wound History of Present Illness: Seen and examined at the bedside awake and alert offers no acute complaints denies any sob, cp, fever, chills, N/V/D foot in dressing making urine tolerating oral diet - Current Medication List Current Medications: Active Medications Acetaminophen (Tylenol -) 1,000 mg PO Q6H PRN PRN Reason: PAIN LEVEL 1 - 3 Last Admin: 01/18/20 04:35 Dose: 1,000 mg Documented by: Albuterol Sulfate (Ventolin Hfa Inhaler -) 2 puff IH Q4H PRN PRN Reason: SHORT OF BREATH/WHEEZING Atenolol (Tenormin -) 50 mg PO BID [facility] Atorvastatin Calcium (Lipitor -) 20 mg PO HS [facility] Last Admin: 01/18/20 22:28 Dose: 20 mg Documented by: Budesonide/Formoterol Fumarate (Symbicort 160/4.5mcg -) 1 puff IH QID [facility] Last Admin: 01/19/20 14:35 Dose: 1 puff Documented by: Docusate Sodium (Colace -) 100 mg PO BID [facility] Last Admin: 01/19/20 10:24 Dose: 100 mg Documented by: Furosemide (Lasix Injection -) 80 mg IVPB BID@0600,1400 [facility] Last Admin: 01/19/20 14:34 Dose: 80 mg Documented by: Hydralazine HCl (Apresoline -) 25 mg PO TID [facility] Last Admin: 01/19/20 14:34 Dose: 25 mg Documented by: Ceftriaxone Sodium 2 gm/ (Dextrose) 100 mls @ 200 mls/hr IVPB DAILY [facility]; Protocol Last Admin: 01/19/20 10:23 Dose: 200 mls/hr Documented by: Lactobacillus Acidophilus (Bacid -) 1 tab PO DAILY [facility] Last Admin: 01/19/20 10:24 Dose: 1 tab Documented by: Latanoprost (Xalatan 0.005% Eye Drops -) 1 drop OU [facility] Last Admin: 01/18/20 22:29 Dose: 1 drop Documented by: Oxycodone HCl (Roxicodone -) 5 mg PO Q6H PRN PRN Reason: PAIN LEVEL 7 - 10 Last Admin: 01/18/20 04:35 Dose: 5 mg Documented by: Pantoprazole Sodium (Protonix -) 40 mg PO DAILY [facility] Last Admin: 01/19/20 10:24 Dose: 40 mg Documented by: Potassium Chloride (K-Dur -) 40 meq PO BID@0800,1400 [facility] Last Admin: 01/19/20 14:34 Dose: 40 meq Documented by: Terazosin HCl (Hytrin -) 4 mg PO HS [facility] Last Admin: 01/18/20 22:29 Dose: 4 mg Documented by: Tramadol HCl (Ultram -) 50 mg PO Q6H PRN PRN Reason: PAIN LEVEL 4 - 6 Last Admin: 01/19/20 12:12 Dose: 50 mg Documented by: - Objective Vital Signs: Vital Signs Temperature 97.8 F 01/19/20 13:27 Pulse Rate 72 01/19/20 13:27 Respiratory Rate 01/19/20 13:27 Blood Pressure 152/89 01/19/20 13:27 O2 Sat by Pulse Oximetry (%) 100 01/19/20 13:27 Constitutional: Yes: No Distress, Calm HENT: Yes: Atraumatic Neck: Yes: Supple Cardiovascular: Yes: Regular Rate and Rhythm Respiratory: Yes: Regular, Diminished. No: Rales, Rhonchi, Wheezes Gastrointestinal: Yes: Soft Extremities: Yes: Other (foot in dressing, chronic venous stasis changes) Edema: Yes Neurological: Yes: Alert, Oriented Labs: CBC, BMP 01/19/20 07:15 01/19/20 07:15 INR, PTT INR 3.24 (0.83-1.09) H 01/19/20 07:15 Assessment/Plan 89 year old man with pmhx of copd, htn, tia, cad, cabg, ckd, pad, and osto who presents with worsening right foot infection. 1. CKD stage 4 2. LE Cellulitis and non-heading wound on foot 3. LE edema 4. PVD Renal function remains stable Continue daily oral potassium as pt is back on loop diuretics Continue Lasix 80mg IV BID for edema Will convert to oral once edema is improved continue abx as needed for lower extremity wound/cellulitis f/u Vancomycin levels. Podiatry and vascular follow up Trend renal function and electrolytes daily s/p Epogen for anemia. Ko Toth DO
--- NOTE | 2020-01-19 17:15 | PN ---
Progress Note (short form) - Note Progress Note: Vascular Surgery Pt seen and examined. Right plantar foot ulcer. Pt had a bypass in right leg in 1997. Shortly after he was told that the bypass was unsuccessful. Our arterial duplex done today confirms that. MRI shows osteo. At this point pt has developed good collateral blood vessels. Would do local wound care with santyl. Pt prob needs IV antibiotics for osteo. ID on case. Spoke to pt and family at bedside -- will do conservative therapy. If foot gets worse, will probably need CO2 angiogram. 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 Jose Angel Arguelles DO
[2020-01-19] MEDS: ATORVASTATIN CA 20 MG TABLET (FP) PO SCH (22:19)
[2020-01-19] MEDS: LATANOPROST 0.005% OPHTH SOLN 2.5ML BOTTLE OU SCH (22:19)
[2020-01-19] MEDS: TERAZOSIN HCL 1 MG CAPSULE PO SCH (22:19)
[2020-01-20] MEDS ORDERED: PT OWN MED DRAWER 7, Y5N ONE ×2 (03:49→09:16)
[2020-01-20] MEDS: hydrALAZINE HCL 25 MG TABLET (FP) PO SCH ×3 (06:02→22:27)
[2020-01-20] MEDS: FUROSEMIDE 40 MG/4 ML INJECTABLE VIAL IVPB SCH ×2 (06:02→13:54)
--- NOTE | 2020-01-20 08:01 | PN ---
Progress Note, Physician - Current Medication List Current Medications: Active Medications Acetaminophen (Tylenol -) 1,000 mg PO Q6H PRN PRN Reason: PAIN LEVEL 1 - 3 Last Admin: 01/18/20 04:35 Dose: 1,000 mg Documented by: Albuterol Sulfate (Ventolin Hfa Inhaler -) 2 puff IH Q4H PRN PRN Reason: SHORT OF BREATH/WHEEZING Atenolol (Tenormin -) 50 mg PO BID [facility] Last Admin: 01/19/20 22:18 Dose: 50 mg Documented by: Atorvastatin Calcium (Lipitor -) 20 mg PO HS [facility] Last Admin: 01/19/20 22:19 Dose: 20 mg Documented by: Budesonide/Formoterol Fumarate (Symbicort 160/4.5mcg -) 1 puff IH QID [facility] Last Admin: 01/19/20 22:19 Dose: 1 puff Documented by: Docusate Sodium (Colace -) 100 mg PO BID [facility] Last Admin: 01/19/20 22:18 Dose: 100 mg Documented by: Furosemide (Lasix Injection -) 80 mg IVPB BID@0600,1400 [facility] Last Admin: 01/20/20 06:02 Dose: 80 mg Documented by: Hydralazine HCl (Apresoline -) 25 mg PO TID [facility] Last Admin: 01/20/20 06:02 Dose: 25 mg Documented by: Ceftriaxone Sodium 2 gm/ (Dextrose) 100 mls @ 200 mls/hr IVPB DAILY [facility]; Protocol Last Admin: 01/19/20 10:23 Dose: 200 mls/hr Documented by: Lactobacillus Acidophilus (Bacid -) 1 tab PO DAILY [facility] Last Admin: 01/19/20 10:24 Dose: 1 tab Documented by: Latanoprost (Xalatan 0.005% Eye Drops -) 1 drop OU [facility] Last Admin: 01/19/20 22:19 Dose: 1 drop Documented by: Oxycodone HCl (Roxicodone -) 5 mg PO Q6H PRN PRN Reason: PAIN LEVEL 7 - 10 Last Admin: 01/18/20 04:35 Dose: 5 mg Documented by: Pantoprazole Sodium (Protonix -) 40 mg PO DAILY [facility] Last Admin: 01/19/20 10:24 Dose: 40 mg Documented by: Potassium Chloride (K-Dur -) 40 meq PO BID@0800,1400 [facility] Last Admin: 01/19/20 14:34 Dose: 40 meq Documented by: Terazosin HCl (Hytrin -) 4 mg PO HS [facility] Last Admin: 01/19/20 22:19 Dose: 4 mg Documented by: Tramadol HCl (Ultram -) 50 mg PO Q6H PRN PRN Reason: PAIN LEVEL 4 - 6 Last Admin: 01/19/20 12:12 Dose: 50 mg Documented by: - Objective Vital Signs: Vital Signs Temperature 98.5 F 01/20/20 06:00 Pulse Rate 68 01/20/20 06:00 Respiratory Rate 01/20/20 06:00 Blood Pressure 146/79 01/20/20 06:00 O2 Sat by Pulse Oximetry (%) 96 01/20/20 06:00 Cardiovascular: Yes: Regular Rate and Rhythm Respiratory: Yes: Regular, CTA Bilaterally Gastrointestinal: Yes: Normal Bowel Sounds, Soft Extremities: Yes: Erythema Labs: CBC, BMP 01/19/20 07:15 01/19/20 07:15 INR, PTT INR 3.24 (0.83-1.09) H 01/19/20 07:15 Assessment/Plan - Problems (1) Wound of right foot Assessment/Plan: -Podiatry consult -Vascular consult noted await duplex -IV abx -ID consult -ESR/CRP elevated - MRI RLE c/w osteomyelitis -Also Check A1c -Wound culture -afebrile -Pain management Problems reviewed: Yes Code(s): S91.301A - UNSPECIFIED OPEN WOUND, RIGHT FOOT, INITIAL ENCOUNTER (2) Atrial fibrillation Assessment/Plan: -Hold warfarin for supratherapeutic INR -Check daily INR -No overt bleeding Problems reviewed: Yes Code(s): I48.91 - UNSPECIFIED ATRIAL FIBRILLATION Qualifiers: Atrial fibrillation type: chronic (3) CAD (coronary artery disease) Assessment/Plan: -Continue BB+ Statin Problems reviewed: Yes Code(s): I25.10 - ATHSCL HEART DISEASE OF [place] CORONARY ARTERY W/O ANG PCTRS (4) CKD (chronic kidney disease) Assessment/Plan: -Nephrology consult -Cr at baseline -monitor trend Problems reviewed: Yes Code(s): N18.9 - CHRONIC KIDNEY DISEASE, UNSPECIFIED (5) Cellulitis Assessment/Plan: -as above Problems reviewed: Yes Code(s): L03.90 - CELLULITIS, UNSPECIFIED (6) Hypokalemia Assessment/Plan: -KCL 10 meq x 3 + KCL 40 meq PO BID -monitor trend -Nephrology on board Problems reviewed: Yes Code(s): E87.6 - HYPOKALEMIA (7) PAD Problems reviewed: Yes Per Vascular--consult appreciated
[2020-01-20 08:53] LABS: ALBUMIN 2.2 g/dl (3.4-5.0); BILIRUBIN,TOTAL 0.4 mg/dL (0.2-1); BLOOD UREA NITROGEN 40.7 mg/dL (7-18); CALCIUM 8.1 mg/dL (8.5-10.1); CREATININE 1.6 mg/dL (0.55-1.3); PHOSPHOROUS 2.2 mg/dL (2.5-4.9); POTASSIUM 4.5 mmol/L (3.5-5.1)
[2020-01-20 09:02] LABS: BASO % 0.5 % (0-2.0); EOS % 2.5 % (0-4.5); HEMATOCRIT 26.2 % (35.4-49); HEMOGLOBIN 8.6 GM/dL (11.7-16.9); LYMPH % 11.3 % (8-40); MCH 29.5 pg (25.7-33.7); MCHC 32.7 g/dl (32.0-35.9); MEAN CELL VOLUME 90.2 fl (80-96); MEAN PLT VOLUME 8.5 fl (7.5-11.1); MONO % 10.4 % (3.8-10.2); NEUT % 75.3 % (42.8-82.8); PLATELET COUNT 168 K/MM3 (134-434); RDW 20.7 % (11.9-15.9)
[2020-01-20] MEDS ORDERED: DEXTROSE 5%-WATER 100 ML IVPB ONE (09:16)
[2020-01-20] MEDS: POTASSIUM CHLORIDE TABS 20 MEQ TABLET.ER (FP) PO SCH ×2 (09:25→13:55)
[2020-01-20] MEDS: CEFTRIAXONE 2 GM in DEXTROSE 5%-WATER 100 ML IVPB SCH (09:25)
[2020-01-20] MEDS: ATENOLOL 25 MG TABLET (FP) PO SCH ×2 (09:26→22:27)
[2020-01-20] MEDS: PANTOPRAZOLE 40 MG TABLET PO SCH (09:26)
[2020-01-20] MEDS: LACTOBACILLUS ACIDOPHILUS 1 TABLET PO SCH (09:26)
[2020-01-20] MEDS: DOCUSATE SODIUM 100 MG CAPSULE (FP) PO SCH ×2 (09:26→22:27)
[2020-01-20] MEDS: BUDESONIDE/FORMETEROL FUMARATE 160/4.5 mcg INHALER IH SCH ×4 (09:27→22:26)
[2020-01-20 11:14] LABS: ANISOCYTOSIS 2+; MACROCYTOSIS 0; PLATELET ESTIMATE NORMAL
[2020-01-20] MEDS: traMADol HCL 50 MG TABLET PO PRN (13:54)
[2020-01-20] MEDS ORDERED: traMADol HCL 50 MG TABLET PO PRN (16:03)
--- NOTE | 2020-01-20 19:31 | PN ---
Progress Note, Physician Chief Complaint: Leg wound History of Present Illness: Seen and examined at the bedside awake and alert offers no acute complaints denies any sob, cp, fever, chills, N/V/D no pain or ozzing from foot wound today making urine tolerating oral diet - Current Medication List Current Medications: Active Medications Acetaminophen (Tylenol -) 1,000 mg PO Q6H PRN PRN Reason: PAIN LEVEL 1 - 3 Last Admin: 01/18/20 04:35 Dose: 1,000 mg Documented by: Albuterol Sulfate (Ventolin Hfa Inhaler -) 2 puff IH Q4H PRN PRN Reason: SHORT OF BREATH/WHEEZING Atenolol (Tenormin -) 50 mg PO BID [facility] Last Admin: 01/20/20 09:26 Dose: 50 mg Documented by: Atorvastatin Calcium (Lipitor -) 20 mg PO HS [facility] Last Admin: 01/19/20 22:19 Dose: 20 mg Documented by: Budesonide/Formoterol Fumarate (Symbicort 160/4.5mcg -) 1 puff IH QID [facility] Last Admin: 01/20/20 17:42 Dose: 1 puff Documented by: Docusate Sodium (Colace -) 100 mg PO BID [facility] Last Admin: 01/20/20 09:26 Dose: 100 mg Documented by: Furosemide (Lasix Injection -) 80 mg IVPB BID@0600,1400 [facility] Last Admin: 01/20/20 13:54 Dose: 80 mg Documented by: Hydralazine HCl (Apresoline -) 25 mg PO TID [facility] Last Admin: 01/20/20 13:55 Dose: 25 mg Documented by: Ceftriaxone Sodium 2 gm/ (Dextrose) 100 mls @ 200 mls/hr IVPB DAILY [facility]; Protocol Last Admin: 01/20/20 09:25 Dose: 200 mls/hr Documented by: Lactobacillus Acidophilus (Bacid -) 1 tab PO DAILY [facility] Last Admin: 01/20/20 09:26 Dose: 1 tab Documented by: Latanoprost (Xalatan 0.005% Eye Drops -) 1 drop OU [facility] Last Admin: 01/19/20 22:19 Dose: 1 drop Documented by: Oxycodone HCl (Roxicodone -) 5 mg PO Q6H PRN PRN Reason: PAIN LEVEL 7 - 10 Pantoprazole Sodium (Protonix -) 40 mg PO DAILY [facility] Last Admin: 01/20/20 09:26 Dose: 40 mg Documented by: Potassium Chloride (K-Dur -) 40 meq PO BID@0800,1400 [facility] Last Admin: 01/20/20 13:55 Dose: 40 meq Documented by: Terazosin HCl (Hytrin -) 4 mg PO HS [facility] Last Admin: 01/19/20 22:19 Dose: 4 mg Documented by: Tramadol HCl (Ultram -) 50 mg PO Q6H PRN PRN Reason: PAIN LEVEL 4 - 6 - Objective Vital Signs: Vital Signs Temperature 98.3 F 01/20/20 18:00 Pulse Rate 70 01/20/20 18:00 Respiratory Rate 20 01/20/20 18:00 Blood Pressure 137/68 01/20/20 18:00 O2 Sat by Pulse Oximetry (%) 97 01/20/20 18:00 Constitutional: Yes: No Distress, Calm Eyes: Yes: Conjunctiva Clear HENT: Yes: Atraumatic Neck: Yes: Supple Cardiovascular: Yes: Pulse Irregular Respiratory: Yes: Regular, CTA Bilaterally Gastrointestinal: Yes: Soft Extremities: Yes: Erythema. No: Cyanosis Edema: Yes Edema: LLE: 1+, RLE: 1+ Neurological: Yes: Alert Labs: CBC, BMP 01/20/20 07:31 01/20/20 07:31 INR, PTT INR 3.24 (0.83-1.09) H 01/19/20 07:15 Assessment/Plan 89 year old man with pmhx of copd, htn, tia, cad, cabg, ckd, pad, and osto who presents with worsening right foot infection. 1. CKD stage 4 2. LE Cellulitis and non-heading wound on foot 3. LE edema 4. PVD Renal function remains stable Continue Lasix 80mg IV BID for edema Continue daily KCl Will convert to oral once edema is improved continue abx as needed for lower extremity wound/cellulitis Vanco level 23 today, holding any additional doses Podiatry and vascular follow up Trend renal function and electrolytes daily s/p Epogen for anemia. Ko Toth DO
[2020-01-20] MEDS: LATANOPROST 0.005% OPHTH SOLN 2.5ML BOTTLE OU SCH (22:26)
[2020-01-20] MEDS: TERAZOSIN HCL 1 MG CAPSULE PO SCH (22:27)
[2020-01-20] MEDS: ATORVASTATIN CA 20 MG TABLET (FP) PO SCH (22:27)
--- NOTE | 2020-01-20 23:18 | PN ---
Progress Note, Physician Chief Complaint: AWAKE, ALERT IN BED OFFERS NO COMPLAINTS AFEBRILE WBC AZOTEMIA IMPROVED CR 1.5 VANCOMYCIN LEVEL NOTED 23 WOUND C/S MIXED, INCLUDING MRSA - Current Medication List Current Medications: Active Medications Acetaminophen (Tylenol -) 1,000 mg PO Q6H PRN PRN Reason: PAIN LEVEL 1 - 3 Last Admin: 01/18/20 04:35 Dose: 1,000 mg Documented by: Albuterol Sulfate (Ventolin Hfa Inhaler -) 2 puff IH Q4H PRN PRN Reason: SHORT OF BREATH/WHEEZING Atenolol (Tenormin -) 50 mg PO BID [facility] Last Admin: 01/20/20 22:27 Dose: 50 mg Documented by: Atorvastatin Calcium (Lipitor -) 20 mg PO [facility] Last Admin: 01/20/20 22:27 Dose: 20 mg Documented by: Budesonide/Formoterol Fumarate (Symbicort 160/4.5mcg -) 1 puff IH QID [facility] Last Admin: 01/20/20 22:26 Dose: 1 puff Documented by: Docusate Sodium (Colace -) 100 mg PO BID [facility] Last Admin: 01/20/20 22:27 Dose: 100 mg Documented by: Furosemide (Lasix Injection -) 80 mg IVPB BID@0600,1400 [facility] Last Admin: 01/20/20 13:54 Dose: 80 mg Documented by: Hydralazine HCl (Apresoline -) 25 mg PO TID [facility] Last Admin: 01/20/20 22:27 Dose: 25 mg Documented by: Ceftriaxone Sodium 2 gm/ (Dextrose) 100 mls @ 200 mls/hr IVPB DAILY [facility]; Protocol Last Admin: 01/20/20 09:25 Dose: 200 mls/hr Documented by: Lactobacillus Acidophilus (Bacid -) 1 tab PO DAILY [facility] Last Admin: 01/20/20 09:26 Dose: 1 tab Documented by: Latanoprost (Xalatan 0.005% Eye Drops -) 1 drop OU [facility] Last Admin: 01/20/20 22:26 Dose: 1 drop Documented by: Oxycodone HCl (Roxicodone -) 5 mg PO Q6H PRN PRN Reason: PAIN LEVEL 7 - 10 Pantoprazole Sodium (Protonix -) 40 mg PO DAILY [facility] Last Admin: 01/20/20 09:26 Dose: 40 mg Documented by: Potassium Chloride (K-Dur -) 40 meq PO BID@0800,1400 [facility] Last Admin: 01/20/20 13:55 Dose: 40 meq Documented by: Terazosin HCl (Hytrin -) 4 mg PO HS [facility] Last Admin: 01/20/20 22:27 Dose: 4 mg Documented by: Tramadol HCl (Ultram -) 50 mg PO Q6H PRN PRN Reason: PAIN LEVEL 4 - 6 - Objective Vital Signs: Vital Signs Temperature 98.3 F 01/20/20 18:00 Pulse Rate 70 01/20/20 18:00 Respiratory Rate 01/20/20 18:00 Blood Pressure 137/68 01/20/20 18:00 O2 Sat by Pulse Oximetry (%) 97 01/20/20 18:00 Constitutional: Yes: No Distress Eyes: Yes: Conjunctiva Clear Cardiovascular: Yes: Regular Rate and Rhythm, S1, S2 Respiratory: Yes: CTA Bilaterally Gastrointestinal: Yes: Normal Bowel Sounds, Soft, Tenderness Extremities: Yes: Other (DECREASED ERYTHEMA/WARMTH LE) Labs: CBC, BMP 01/20/20 07:31 01/20/20 07:31 INR, PTT INR 3.24 (0.83-1.09) H 01/19/20 07:15 Assessment/Plan BILATERAL LE CELLULITIS IMPROVED AZOTEMIA IMPROVED PCN ALLERGY S/P AVR CONTINUE CEFTRIAXONE RANDOM VANCOMYCIN LEVEL AM
[2020-01-21] MEDS: hydrALAZINE HCL 25 MG TABLET (FP) PO SCH ×3 (06:10→21:59)
[2020-01-21] MEDS: FUROSEMIDE 40 MG/4 ML INJECTABLE VIAL IVPB SCH ×2 (06:10→13:15)
[2020-01-21 08:37] LABS: BASO % 0.6 % (0-2.0); EOS % 3.1 % (0-4.5); HEMATOCRIT 27.2 % (35.4-49); HEMOGLOBIN 8.9 GM/dL (11.7-16.9); LYMPH % 10.4 % (8-40); MCH 29.9 pg (25.7-33.7); MCHC 32.8 g/dl (32.0-35.9); MEAN CELL VOLUME 91.2 fl (80-96); MEAN PLT VOLUME 8.6 fl (7.5-11.1); MONO % 9.8 % (3.8-10.2); NEUT % 76.1 % (42.8-82.8); PLATELET COUNT 164 K/MM3 (134-434); RBC 2.98 M/mm3 (4.00-5.60); RDW 20.8 % (11.9-15.9); WHITE BLOOD COUNT 5.6 K/mm3 (4.0-10.0)
[2020-01-21 09:08] LABS: BLOOD UREA NITROGEN 36.4 mg/dL (7-18); CALCIUM 7.9 mg/dL (8.5-10.1); CREATININE 1.5 mg/dL (0.55-1.3); POTASSIUM 4.3 mmol/L (3.5-5.1)
[2020-01-21] MEDS ORDERED: DEXTROSE 5%-WATER 100 ML IVPB ONE (09:22)
[2020-01-21] MEDS ORDERED: PT OWN MED DRAWER 7, Y5N ONE ×3 (09:25→21:55)
[2020-01-21] MEDS: POTASSIUM CHLORIDE TABS 20 MEQ TABLET.ER (FP) PO SCH ×2 (09:28→13:15)
[2020-01-21] MEDS: LACTOBACILLUS ACIDOPHILUS 1 TABLET PO SCH (09:28)
[2020-01-21] MEDS: ATENOLOL 25 MG TABLET (FP) PO SCH ×2 (09:29→22:01)
[2020-01-21] MEDS: PANTOPRAZOLE 40 MG TABLET PO SCH (09:29)
[2020-01-21] MEDS: DOCUSATE SODIUM 100 MG CAPSULE (FP) PO SCH ×2 (09:29→21:59)
[2020-01-21] MEDS: CEFTRIAXONE 2 GM in DEXTROSE 5%-WATER 100 ML IVPB SCH (09:30)
[2020-01-21] MEDS: BUDESONIDE/FORMETEROL FUMARATE 160/4.5 mcg INHALER IH SCH ×4 (09:31→22:00)
--- NOTE | 2020-01-21 11:55 | PN ---
Progress Note, Physician - Current Medication List Current Medications: Active Medications Acetaminophen (Tylenol -) 1,000 mg PO Q6H PRN PRN Reason: PAIN LEVEL 1 - 3 Last Admin: 01/18/20 04:35 Dose: 1,000 mg Documented by: Albuterol Sulfate (Ventolin Hfa Inhaler -) 2 puff IH Q4H PRN PRN Reason: SHORT OF BREATH/WHEEZING Atenolol (Tenormin -) 50 mg PO BID [facility] Last Admin: 01/21/20 09:29 Dose: 50 mg Documented by: Atorvastatin Calcium (Lipitor -) 20 mg PO HS [facility] Last Admin: 01/20/20 22:27 Dose: 20 mg Documented by: Budesonide/Formoterol Fumarate (Symbicort 160/4.5mcg -) 1 puff IH QID [facility] Last Admin: 01/21/20 09:31 Dose: 1 puff Documented by: Docusate Sodium (Colace -) 100 mg PO BID [facility] Last Admin: 01/21/20 09:29 Dose: 100 mg Documented by: Furosemide (Lasix Injection -) 80 mg IVPB BID@0600,1400 [facility] Last Admin: 01/21/20 06:10 Dose: 80 mg Documented by: Hydralazine HCl (Apresoline -) 25 mg PO TID [facility] Last Admin: 01/21/20 06:10 Dose: 25 mg Documented by: Ceftriaxone Sodium 2 gm/ (Dextrose) 100 mls @ 200 mls/hr IVPB DAILY [facility]; Protocol Last Admin: 01/21/20 09:30 Dose: 200 mls/hr Documented by: Lactobacillus Acidophilus (Bacid -) 1 tab PO DAILY [facility] Last Admin: 01/21/20 09:28 Dose: 1 tab Documented by: Latanoprost (Xalatan 0.005% Eye Drops -) 1 drop OU [facility] Last Admin: 01/20/20 22:26 Dose: 1 drop Documented by: Oxycodone HCl (Roxicodone -) 5 mg PO Q6H PRN PRN Reason: PAIN LEVEL 7 - 10 Pantoprazole Sodium (Protonix -) 40 mg PO DAILY [facility] Last Admin: 01/21/20 09:29 Dose: 40 mg Documented by: Potassium Chloride (K-Dur -) 40 meq PO BID@0800,1400 [facility] Last Admin: 01/21/20 09:28 Dose: 40 meq Documented by: Terazosin HCl (Hytrin -) 4 mg PO HS [facility] Last Admin: 01/20/20 22:27 Dose: 4 mg Documented by: Tramadol HCl (Ultram -) 50 mg PO Q6H PRN PRN Reason: PAIN LEVEL 4 - 6 - Objective Vital Signs: Vital Signs Temperature 98.2 F 01/21/20 06:00 Pulse Rate 72 01/21/20 06:00 Respiratory Rate 20 01/21/20 06:00 Blood Pressure 136/70 01/21/20 06:00 O2 Sat by Pulse Oximetry (%) 98 01/21/20 06:00 Cardiovascular: Yes: Murmur, S1, S2 Respiratory: Yes: Regular, CTA Bilaterally Gastrointestinal: Yes: Normal Bowel Sounds, Soft Edema: Yes Labs: CBC, BMP 01/21/20 07:20 01/21/20 07:20 INR, PTT INR 3.24 (0.83-1.09) H 01/19/20 07:15 Assessment/Plan - Problems (1) Wound of right foot Assessment/Plan: -Podiatry consult -Vascular consult noted await duplex -IV abx -ID consult -ESR/CRP elevated - MRI RLE c/w osteomyelitis -Also Check A1c -Wound culture -afebrile -Pain management Problems reviewed: Yes Code(s): S91.301A - UNSPECIFIED OPEN WOUND, RIGHT FOOT, INITIAL ENCOUNTER (2) Atrial fibrillation Assessment/Plan: -Hold warfarin for supratherapeutic INR -Check daily INR -No overt bleeding Problems reviewed: Yes Code(s): I48.91 - UNSPECIFIED ATRIAL FIBRILLATION Qualifiers: Atrial fibrillation type: chronic (3) CAD (coronary artery disease) Assessment/Plan: -Continue BB+ Statin Problems reviewed: Yes Code(s): I25.10 - ATHSCL HEART DISEASE OF [place] CORONARY ARTERY W/O ANG PCTRS (4) CKD (chronic kidney disease) Assessment/Plan: -Nephrology consult -Cr at baseline -monitor trend Problems reviewed: Yes Code(s): N18.9 - CHRONIC KIDNEY DISEASE, UNSPECIFIED (5) Cellulitis Assessment/Plan: -as above Problems reviewed: Yes Code(s): L03.90 - CELLULITIS, UNSPECIFIED (6) Hypokalemia Assessment/Plan: -KCL 10 meq x 3 + KCL 40 meq PO BID -monitor trend -Nephrology on board Problems reviewed: Yes Code(s): E87.6 - HYPOKALEMIA (7) PAD Problems reviewed: Yes Per Vascular--consult appreciated
[2020-01-21] MEDS: oxyCODONE HCL 5 MG TABLET PO PRN (14:37)
--- NOTE | 2020-01-21 16:13 | PN ---
Progress Note, Physician Chief Complaint: Leg wound History of Present Illness: Seen and examined at the bedside awake and alert offers no acute complaints denies any sob, cp, fever, chills, N/V/D making urine tolerating oral diet - Current Medication List Current Medications: Active Medications Acetaminophen (Tylenol -) 1,000 mg PO Q6H PRN PRN Reason: PAIN LEVEL 1 - 3 Last Admin: 01/18/20 04:35 Dose: 1,000 mg Documented by: Albuterol Sulfate (Ventolin Hfa Inhaler -) 2 puff IH Q4H PRN PRN Reason: SHORT OF BREATH/WHEEZING Atenolol (Tenormin -) 50 mg PO BID [facility] Last Admin: 01/21/20 09:29 Dose: 50 mg Documented by: Atorvastatin Calcium (Lipitor -) 20 mg PO [facility] Last Admin: 01/20/20 22:27 Dose: 20 mg Documented by: Budesonide/Formoterol Fumarate (Symbicort 160/4.5mcg -) 1 puff IH QID [facility] Last Admin: 01/21/20 13:38 Dose: 1 puff Documented by: Docusate Sodium (Colace -) 100 mg PO BID [facility] Last Admin: 01/21/20 09:29 Dose: 100 mg Documented by: Furosemide (Lasix Injection -) 80 mg IVPB BID@0600,1400 [facility] Last Admin: 01/21/20 13:15 Dose: 80 mg Documented by: Hydralazine HCl (Apresoline -) 25 mg PO TID [facility] Last Admin: 01/21/20 13:15 Dose: 25 mg Documented by: Ceftriaxone Sodium 2 gm/ (Dextrose) 100 mls @ 200 mls/hr IVPB DAILY [facility]; Protocol Last Admin: 01/21/20 09:30 Dose: 200 mls/hr Documented by: Lactobacillus Acidophilus (Bacid -) 1 tab PO DAILY [facility] Last Admin: 01/21/20 09:28 Dose: 1 tab Documented by: Latanoprost (Xalatan 0.005% Eye Drops -) 1 drop OU [facility] Last Admin: 01/20/20 22:26 Dose: 1 drop Documented by: Oxycodone HCl (Roxicodone -) 5 mg PO Q6H PRN PRN Reason: PAIN LEVEL 7 - 10 Last Admin: 01/21/20 14:37 Dose: 5 mg Documented by: Pantoprazole Sodium (Protonix -) 40 mg PO DAILY [facility] Last Admin: 01/21/20 09:29 Dose: 40 mg Documented by: Potassium Chloride (K-Dur -) 40 meq PO BID@0800,1400 [facility] Last Admin: 01/21/20 13:15 Dose: 40 meq Documented by: Terazosin HCl (Hytrin -) 4 mg PO HS [facility] Last Admin: 01/20/20 22:27 Dose: 4 mg Documented by: Tramadol HCl (Ultram -) 50 mg PO Q6H PRN PRN Reason: PAIN LEVEL 4 - 6 - Objective Vital Signs: Vital Signs Temperature 98.5 F 01/21/20 14:14 Pulse Rate 66 01/21/20 14:14 Respiratory Rate 01/21/20 14:14 Blood Pressure 156/85 01/21/20 14:14 O2 Sat by Pulse Oximetry (%) 97 01/21/20 14:14 Constitutional: Yes: No Distress, Calm HENT: Yes: Atraumatic Neck: Yes: Supple Cardiovascular: Yes: Regular Rate and Rhythm Respiratory: Yes: Regular, Diminished, On Nasal O2. No: Rales, Rhonchi, SOB Gastrointestinal: Yes: Soft. No: Tenderness, Tenderness, Rebound Extremities: No: Cyanosis Edema: Yes Edema: LLE: Trace, RLE: Trace Neurological: Yes: Alert, Oriented Labs: CBC, BMP 01/21/20 07:20 01/21/20 07:20 INR, PTT INR 3.24 (0.83-1.09) H 01/19/20 07:15 Assessment/Plan 89 year old man with pmhx of copd, htn, tia, cad, cabg, ckd, pad, and osto who presents with worsening right foot infection. 1. CKD stage 4 2. LE Cellulitis and non-heading wound on foot 3. LE edema 4. PVD Renal function remains stable Convert diuretics to BUMEX 2mg BID Continue daily KCl continue abx as needed for lower extremity wound/cellulitis Vanco level 18 today, holding any additional doses Podiatry and vascular follow up Trend renal function and electrolytes daily s/p Epogen for anemia. Ko Toth DO
[2020-01-21] MEDS: BUMETANIDE 1 MG TABLET PO SCH (19:19)
[2020-01-21] MEDS: ATORVASTATIN CA 20 MG TABLET (FP) PO SCH (21:59)
[2020-01-21] MEDS: TERAZOSIN HCL 1 MG CAPSULE PO SCH (22:00)
[2020-01-21] MEDS: LATANOPROST 0.005% OPHTH SOLN 2.5ML BOTTLE OU SCH (22:01)
[2020-01-22] MEDS ORDERED: PT OWN MED DRAWER 7, Y5N ONE ×3 (05:45→22:45)
[2020-01-22] MEDS: hydrALAZINE HCL 25 MG TABLET (FP) PO SCH ×3 (06:27→22:58)
[2020-01-22] MEDS: BUMETANIDE 1 MG TABLET PO SCH ×2 (06:27→17:21)
[2020-01-22 08:03] LABS: BLOOD UREA NITROGEN 29.6 mg/dL (7-18); CREATININE 1.4 mg/dL (0.55-1.3); POTASSIUM 3.9 mmol/L (3.5-5.1)
[2020-01-22] MEDS ORDERED: DEXTROSE 5%-WATER 100 ML IVPB ONE (10:12)
[2020-01-22] MEDS: CEFTRIAXONE 2 GM in DEXTROSE 5%-WATER 100 ML IVPB SCH (10:24)
[2020-01-22] MEDS: POTASSIUM CHLORIDE TABS 20 MEQ TABLET.ER (FP) PO SCH ×2 (10:25→13:19)
[2020-01-22] MEDS: ATENOLOL 25 MG TABLET (FP) PO SCH ×2 (10:27→22:58)
[2020-01-22] MEDS: DOCUSATE SODIUM 100 MG CAPSULE (FP) PO SCH ×2 (10:27→22:58)
[2020-01-22] MEDS: BUDESONIDE/FORMETEROL FUMARATE 160/4.5 mcg INHALER IH SCH ×4 (10:27→22:58)
[2020-01-22] MEDS: LACTOBACILLUS ACIDOPHILUS 1 TABLET PO SCH (10:27)
[2020-01-22] MEDS: PANTOPRAZOLE 40 MG TABLET PO SCH (10:27)
--- NOTE | 2020-01-22 11:13 | PN ---
Progress Note, Physician - Current Medication List Current Medications: Active Medications Acetaminophen (Tylenol -) 1,000 mg PO Q6H PRN PRN Reason: PAIN LEVEL 1 - 3 Last Admin: 01/18/20 04:35 Dose: 1,000 mg Documented by: Albuterol Sulfate (Ventolin Hfa Inhaler -) 2 puff IH Q4H PRN PRN Reason: SHORT OF BREATH/WHEEZING Atenolol (Tenormin -) 50 mg PO BID [facility] Last Admin: 01/22/20 10:27 Dose: 50 mg Documented by: Atorvastatin Calcium (Lipitor -) [address] [facility] Last Admin: 01/21/20 21:59 Dose: 20 mg Documented by: Budesonide/Formoterol Fumarate (Symbicort 160/4.5mcg -) 1 puff IH QID [facility] Last Admin: 01/22/20 10:27 Dose: 1 puff Documented by: Bumetanide (Bumex -) 2 mg PO BID@0600,1800 [facility] Last Admin: 01/22/20 06:27 Dose: 2 mg Documented by: Docusate Sodium (Colace -) 100 mg PO BID [facility] Last Admin: 01/22/20 10:27 Dose: 100 mg Documented by: Hydralazine HCl (Apresoline -) 25 mg PO TID [facility] Last Admin: 01/22/20 06:27 Dose: 25 mg Documented by: Ceftriaxone Sodium 2 gm/ (Dextrose) 100 mls @ 200 mls/hr IVPB DAILY [facility]; Protocol Last Admin: 01/22/20 10:24 Dose: 200 mls/hr Documented by: Lactobacillus Acidophilus (Bacid -) 1 tab PO DAILY [facility] Last Admin: 01/22/20 10:27 Dose: 1 tab Documented by: Latanoprost (Xalatan 0.005% Eye Drops -) [address] [facility] Last Admin: 01/21/20 22:01 Dose: 1 drop Documented by: Oxycodone HCl (Roxicodone -) 5 mg PO Q6H PRN PRN Reason: PAIN LEVEL 7 - 10 Last Admin: 01/21/20 14:37 Dose: 5 mg Documented by: Pantoprazole Sodium (Protonix -) 40 mg PO DAILY [facility] Last Admin: 01/22/20 10:27 Dose: 40 mg Documented by: Potassium Chloride (K-Dur -) 40 meq PO BID@0800,1400 [facility] Last Admin: 01/22/20 10:25 Dose: 40 meq Documented by: Terazosin HCl (Hytrin -) 4 mg PO HS [facility] Last Admin: 01/21/20 22:00 Dose: 4 mg Documented by: Tramadol HCl (Ultram -) 50 mg PO Q6H PRN PRN Reason: PAIN LEVEL 4 - 6 - Objective Vital Signs: Vital Signs Temperature 98.7 F 01/22/20 10:34 Pulse Rate 70 01/22/20 10:34 Respiratory Rate 01/22/20 10:34 Blood Pressure 144/79 01/22/20 10:34 O2 Sat by Pulse Oximetry (%) 98 01/22/20 10:34 Cardiovascular: Yes: S1, S2 Respiratory: Yes: Regular, CTA Bilaterally Gastrointestinal: Yes: Normal Bowel Sounds, Soft Labs: CBC, BMP 01/21/20 07:20 01/22/20 06:15 INR, PTT INR 3.24 (0.83-1.09) H 01/19/20 07:15 Assessment/Plan - Problems (1) Wound of right foot Assessment/Plan: -Podiatry consult -Vascular consult noted await duplex -IV abx -ID consult -ESR/CRP elevated - MRI RLE c/w osteomyelitis -Also Check A1c -Wound culture -afebrile -Pain management Problems reviewed: Yes Code(s): S91.301A - UNSPECIFIED OPEN WOUND, RIGHT FOOT, INITIAL ENCOUNTER (2) Atrial fibrillation Assessment/Plan: -Hold warfarin for supratherapeutic INR -Check daily INR -No overt bleeding Problems reviewed: Yes Code(s): I48.91 - UNSPECIFIED ATRIAL FIBRILLATION Qualifiers: Atrial fibrillation type: chronic (3) CAD (coronary artery disease) Assessment/Plan: -Continue BB+ Statin Problems reviewed: Yes Code(s): I25.10 - ATHSCL HEART DISEASE OF [place] CORONARY ARTERY W/O ANG PCTRS (4) CKD (chronic kidney disease) Assessment/Plan: -Nephrology consult -Cr at baseline -monitor trend Problems reviewed: Yes Code(s): N18.9 - CHRONIC KIDNEY DISEASE, UNSPECIFIED (5) Cellulitis Assessment/Plan: -as above Problems reviewed: Yes Code(s): L03.90 - CELLULITIS, UNSPECIFIED (6) Hypokalemia Assessment/Plan: -KCL 10 meq x 3 + KCL 40 meq PO BID -monitor trend -Nephrology on board Problems reviewed: Yes Code(s): E87.6 - HYPOKALEMIA (7) PAD Problems reviewed: Yes Per Vascular--consult appreciated
[2020-01-22] MEDS ORDERED: VANCOMYCIN 500 MG in DEXTROSE 5%-WATER - 100 ML IVPB ONE (11:24)
--- NOTE | 2020-01-22 11:24 | PN ---
Progress Note, Physician Chief Complaint: Leg wound History of Present Illness: Seen and examined at the bedside awake and alert offers no acute complaints denies any sob, cp, fever, chills, N/V/D making urine tolerating oral diet - Current Medication List Current Medications: Active Medications Acetaminophen (Tylenol -) 1,000 mg PO Q6H PRN PRN Reason: PAIN LEVEL 1 - 3 Last Admin: 01/18/20 04:35 Dose: 1,000 mg Documented by: Albuterol Sulfate (Ventolin Hfa Inhaler -) 2 puff IH Q4H PRN PRN Reason: SHORT OF BREATH/WHEEZING Atenolol (Tenormin -) 50 mg PO BID [facility] Last Admin: 01/22/20 10:27 Dose: 50 mg Documented by: Atorvastatin Calcium (Lipitor -) 20 mg PO [facility] Last Admin: 01/21/20 21:59 Dose: 20 mg Documented by: Budesonide/Formoterol Fumarate (Symbicort 160/4.5mcg -) 1 puff IH QID [facility] Last Admin: 01/22/20 10:27 Dose: 1 puff Documented by: Bumetanide (Bumex -) 2 mg PO BID@0600,1800 [facility] Last Admin: 01/22/20 06:27 Dose: 2 mg Documented by: Docusate Sodium (Colace -) 100 mg PO BID [facility] Last Admin: 01/22/20 10:27 Dose: 100 mg Documented by: Hydralazine HCl (Apresoline -) 25 mg PO TID [facility] Last Admin: 01/22/20 06:27 Dose: 25 mg Documented by: Ceftriaxone Sodium 2 gm/ (Dextrose) 100 mls @ 200 mls/hr IVPB DAILY [facility]; Protocol Last Admin: 01/22/20 10:24 Dose: 200 mls/hr Documented by: Lactobacillus Acidophilus (Bacid -) 1 tab PO DAILY [facility] Last Admin: 01/22/20 10:27 Dose: 1 tab Documented by: Latanoprost (Xalatan 0.005% Eye Drops -) 1 drop OU [facility] Last Admin: 01/21/20 22:01 Dose: 1 drop Documented by: Oxycodone HCl (Roxicodone -) 5 mg PO Q6H PRN PRN Reason: PAIN LEVEL 7 - 10 Last Admin: 01/21/20 14:37 Dose: 5 mg Documented by: Pantoprazole Sodium (Protonix -) 40 mg PO DAILY [facility] Last Admin: 01/22/20 10:27 Dose: 40 mg Documented by: Potassium Chloride (K-Dur -) 40 meq PO BID@0800,1400 [facility] Last Admin: 01/22/20 10:25 Dose: 40 meq Documented by: Terazosin HCl (Hytrin -) 4 mg PO HS [facility] Last Admin: 01/21/20 22:00 Dose: 4 mg Documented by: Tramadol HCl (Ultram -) 50 mg PO Q6H PRN PRN Reason: PAIN LEVEL 4 - 6 - Objective Vital Signs: Vital Signs Temperature 98.7 F 01/22/20 10:34 Pulse Rate 70 01/22/20 10:34 Respiratory Rate 20 01/22/20 10:34 Blood Pressure 144/79 01/22/20 10:34 O2 Sat by Pulse Oximetry (%) 98 01/22/20 10:34 Constitutional: Yes: No Distress, Calm HENT: Yes: Atraumatic Neck: Yes: Supple Cardiovascular: Yes: Regular Rate and Rhythm Respiratory: Yes: Regular, Diminished. No: Rales, Rhonchi Gastrointestinal: Yes: Soft Extremities: Yes: Erythema Edema: Yes Edema: LLE: Trace, RLE: Trace Neurological: Yes: Alert, Oriented Labs: CBC, BMP 01/21/20 07:20 01/22/20 06:15 INR, PTT INR 3.24 (0.83-1.09) H 01/19/20 07:15 Assessment/Plan 89 year old man with pmhx of copd, htn, tia, cad, cabg, ckd, pad, and osto who presents with worsening right foot infection. 1. CKD stage 4 2. LE Cellulitis and non-heading wound on foot 3. LE edema 4. PVD Renal function stable Weights improved, continue BUMEX 2mg BID Continue daily KCl continue abx as needed for lower extremity wound/cellulitis Vanco level 14 today, will give additional 500mg Podiatry and vascular follow up Trend renal function and electrolytes daily s/p Epogen for anemia. Ko Toth DO
[2020-01-22 12:43] LABS: INR 2.31 (0.83-1.09); PROTHROMBIN TIME (PATIENT) 27.5 SEC (9.7-13.0)
[2020-01-22] MEDS: oxyCODONE HCL 5 MG TABLET PO PRN (13:18)
[2020-01-22] MEDS: TERAZOSIN HCL 1 MG CAPSULE PO SCH (22:58)
[2020-01-22] MEDS: ATORVASTATIN CA 20 MG TABLET (FP) PO SCH (22:58)
[2020-01-22] MEDS: LATANOPROST 0.005% OPHTH SOLN 2.5ML BOTTLE OU SCH (22:58)
[2020-01-23] MEDS: hydrALAZINE HCL 25 MG TABLET (FP) PO SCH ×3 (06:33→21:21)
[2020-01-23] MEDS: BUMETANIDE 1 MG TABLET PO SCH ×2 (06:34→17:26)
[2020-01-23 07:30] LABS: BASO % 0.6 % (0-2.0); EOS % 2.7 % (0-4.5); HEMATOCRIT 25.7 % (35.4-49); HEMOGLOBIN 8.4 GM/dL (11.7-16.9); LYMPH % 9.8 % (8-40); MCH 29.3 pg (25.7-33.7); MCHC 32.6 g/dl (32.0-35.9); MEAN CELL VOLUME 90.1 fl (80-96); MEAN PLT VOLUME 7.8 fl (7.5-11.1); MONO % 10.7 % (3.8-10.2); NEUT % 76.2 % (42.8-82.8); PLATELET COUNT 151 K/MM3 (134-434); RBC 2.85 M/mm3 (4.00-5.60); RDW 20.4 % (11.9-15.9); WHITE BLOOD COUNT 6.2 K/mm3 (4.0-10.0)
[2020-01-23 07:36] LABS: INR 1.88 (0.83-1.09); PROTHROMBIN TIME (PATIENT) 22.3 SEC (9.7-13.0)
[2020-01-23 07:41] LABS: BLOOD UREA NITROGEN 27.9 mg/dL (7-18); CALCIUM 7.8 mg/dL (8.5-10.1); CREATININE 1.4 mg/dL (0.55-1.3); POTASSIUM 4.1 mmol/L (3.5-5.1)
[2020-01-23] MEDS ORDERED: DEXTROSE 5%-WATER 100 ML IVPB ONE (08:37)
[2020-01-23] MEDS: PANTOPRAZOLE 40 MG TABLET PO SCH (09:00)
[2020-01-23] MEDS: POTASSIUM CHLORIDE TABS 20 MEQ TABLET.ER (FP) PO SCH ×2 (09:00→13:04)
[2020-01-23] MEDS: ATENOLOL 25 MG TABLET (FP) PO SCH ×2 (09:01→21:23)
[2020-01-23] MEDS: DOCUSATE SODIUM 100 MG CAPSULE (FP) PO SCH ×2 (09:01→21:21)
[2020-01-23] MEDS: LACTOBACILLUS ACIDOPHILUS 1 TABLET PO SCH (09:01)
[2020-01-23] MEDS: CEFTRIAXONE 2 GM in DEXTROSE 5%-WATER 100 ML IVPB SCH (09:02)
[2020-01-23] MEDS: BUDESONIDE/FORMETEROL FUMARATE 160/4.5 mcg INHALER IH SCH ×4 (09:03→21:24)
[2020-01-23] MEDS ORDERED: EPOETIN ALFA 20,000 UNIT/1 ML VIAL SQ ONE (10:00)
--- NOTE | 2020-01-23 11:17 | PN ---
Progress Note, Physician Chief Complaint: Leg wound History of Present Illness: Seen and examined at the bedside awake and alert offers no acute complaints, leg swelling improved denies any sob, cp, fever, chills, N/V/D making urine tolerating oral diet - Current Medication List Current Medications: Active Medications Acetaminophen (Tylenol -) 1,000 mg PO Q6H PRN PRN Reason: PAIN LEVEL 1 - 3 Last Admin: 01/18/20 04:35 Dose: 1,000 mg Documented by: Albuterol Sulfate (Ventolin Hfa Inhaler -) 2 puff IH Q4H PRN PRN Reason: SHORT OF BREATH/WHEEZING Atenolol (Tenormin -) 50 mg PO BID [facility] Last Admin: 01/23/20 09:01 Dose: 50 mg Documented by: Atorvastatin Calcium (Lipitor -) 20 mg PO [facility] Last Admin: 01/22/20 22:58 Dose: 20 mg Documented by: Budesonide/Formoterol Fumarate (Symbicort 160/4.5mcg -) 1 puff IH QID [facility] Last Admin: 01/23/20 09:03 Dose: 1 puff Documented by: Bumetanide (Bumex -) 2 mg PO BID@0600,1800 [facility] Last Admin: 01/23/20 06:34 Dose: 2 mg Documented by: Docusate Sodium (Colace -) 100 mg PO BID [facility] Last Admin: 01/23/20 09:01 Dose: 100 mg Documented by: Hydralazine HCl (Apresoline -) 25 mg PO TID [facility] Last Admin: 01/23/20 06:33 Dose: 25 mg Documented by: Ceftriaxone Sodium 2 gm/ (Dextrose) 100 mls @ 200 mls/hr IVPB DAILY [facility]; Protocol Last Admin: 01/23/20 09:02 Dose: 200 mls/hr Documented by: Lactobacillus Acidophilus (Bacid -) 1 tab PO DAILY [facility] Last Admin: 01/23/20 09:01 Dose: 1 tab Documented by: Latanoprost (Xalatan 0.005% Eye Drops -) 1 drop OU [facility] Last Admin: 01/22/20 22:58 Dose: 1 drop Documented by: Oxycodone HCl (Roxicodone -) 5 mg PO Q6H PRN PRN Reason: PAIN LEVEL 7 - 10 Last Admin: 01/22/20 13:18 Dose: 5 mg Documented by: Pantoprazole Sodium (Protonix -) 40 mg PO DAILY [facility] Last Admin: 01/23/20 09:00 Dose: 40 mg Documented by: Potassium Chloride (K-Dur -) 40 meq PO BID@0800,1400 [facility] Last Admin: 01/23/20 09:00 Dose: 40 meq Documented by: Terazosin HCl (Hytrin -) 4 mg PO HS [facility] Last Admin: 01/22/20 22:58 Dose: 4 mg Documented by: Tramadol HCl (Ultram -) 50 mg PO Q6H PRN PRN Reason: PAIN LEVEL 4 - 6 Last Admin: 01/22/20 17:20 Dose: 50 mg Documented by: - Objective Vital Signs: Vital Signs Temperature 97.9 F 01/23/20 08:57 Pulse Rate 74 01/23/20 08:57 Respiratory Rate 18 01/23/20 08:57 Blood Pressure 168/89 01/23/20 08:57 O2 Sat by Pulse Oximetry (%) 94 L 01/23/20 08:57 Constitutional: Yes: No Distress, Calm HENT: Yes: Atraumatic Neck: Yes: Supple Cardiovascular: Yes: Regular Rate and Rhythm Respiratory: Yes: Regular, CTA Bilaterally, Diminished. No: Rales, Rhonchi Gastrointestinal: Yes: Soft. No: Tenderness Extremities: Yes: Erythema. No: Cyanosis Edema: Yes Edema: LLE: Trace, RLE: Trace Neurological: Yes: Alert, Oriented Labs: CBC, BMP 01/23/20 06:40 01/23/20 06:40 INR, PTT INR 1.88 (0.83-1.09) H 01/23/20 06:40 Assessment/Plan 89 year old man with pmhx of copd, htn, tia, cad, cabg, ckd, pad, and osto who presents with worsening right foot infection. 1. CKD stage 4 2. LE Cellulitis and non-heading wound on foot 3. LE edema 4. PVD Renal function stable Weights improved, continue BUMEX 2mg BID Continue daily KCl Antibiotic as per ID, on IV Vanco/Ceftriaxone now. Vanco level 16 today Podiatry and vascular follow up Trend renal function and electrolytes daily s/p Epogen for anemia. Ko Ttoh DO
[2020-01-23 12:55] VITALS: BMI 27.3
--- NOTE | 2020-01-23 13:40 | PN ---
Progress Note, Physician - Current Medication List Current Medications: Active Medications Acetaminophen (Tylenol -) 1,000 mg PO Q6H PRN PRN Reason: PAIN LEVEL 1 - 3 Last Admin: 01/18/20 04:35 Dose: 1,000 mg Documented by: Albuterol Sulfate (Ventolin Hfa Inhaler -) 2 puff IH Q4H PRN PRN Reason: SHORT OF BREATH/WHEEZING Atenolol (Tenormin -) 50 mg PO BID [facility] Last Admin: 01/23/20 09:01 Dose: 50 mg Documented by: Atorvastatin Calcium (Lipitor -) 20 mg PO [facility] Last Admin: 01/22/20 22:58 Dose: 20 mg Documented by: Budesonide/Formoterol Fumarate (Symbicort 160/4.5mcg -) 1 puff IH QID [facility] Last Admin: 01/23/20 13:04 Dose: 1 puff Documented by: Bumetanide (Bumex -) 2 mg PO BID@0600,1800 [facility] Last Admin: 01/23/20 06:34 Dose: 2 mg Documented by: Docusate Sodium (Colace -) 100 mg PO BID [facility] Last Admin: 01/23/20 09:01 Dose: 100 mg Documented by: Hydralazine HCl (Apresoline -) 25 mg PO TID [facility] Last Admin: 01/23/20 13:04 Dose: 25 mg Documented by: Ceftriaxone Sodium 2 gm/ (Dextrose) 100 mls @ 200 mls/hr IVPB DAILY [facility]; Protocol Last Admin: 01/23/20 09:02 Dose: 200 mls/hr Documented by: Lactobacillus Acidophilus (Bacid -) 1 tab PO DAILY [facility] Last Admin: 01/23/20 09:01 Dose: 1 tab Documented by: Latanoprost (Xalatan 0.005% Eye Drops -) 1 drop OU [facility] Last Admin: 01/22/20 22:58 Dose: 1 drop Documented by: Oxycodone HCl (Roxicodone -) 5 mg PO Q6H PRN PRN Reason: PAIN LEVEL 7 - 10 Last Admin: 01/22/20 13:18 Dose: 5 mg Documented by: Pantoprazole Sodium (Protonix -) 40 mg PO DAILY [facility] Last Admin: 01/23/20 09:00 Dose: 40 mg Documented by: Potassium Chloride (K-Dur -) 40 meq PO BID@0800,1400 [facility] Last Admin: 01/23/20 13:04 Dose: 40 meq Documented by: Terazosin HCl (Hytrin -) 4 mg PO HS [facility] Last Admin: 01/22/20 22:58 Dose: 4 mg Documented by: Tramadol HCl (Ultram -) 50 mg PO Q6H PRN PRN Reason: PAIN LEVEL 4 - 6 Last Admin: 01/22/20 17:20 Dose: 50 mg Documented by: - Objective Vital Signs: Vital Signs Temperature 97.9 F 01/23/20 08:57 Pulse Rate 74 01/23/20 08:57 Respiratory Rate 18 01/23/20 09:00 Blood Pressure 168/89 01/23/20 08:57 O2 Sat by Pulse Oximetry (%) 96 01/23/20 09:00 Cardiovascular: Yes: S1, S2 Respiratory: Yes: Regular, CTA Bilaterally Edema: Yes Integumentary: Yes: Venous Stasis Changes Labs: CBC, BMP 01/23/20 06:40 01/23/20 06:40 INR, PTT INR 1.88 (0.83-1.09) H 01/23/20 06:40 Assessment/Plan - Problems (1) Wound of right foot Assessment/Plan: -Podiatry consult -Vascular consult noted await duplex -IV abx -ID consult -ESR/CRP elevated - MRI RLE c/w osteomyelitis -Also Check A1c -Wound culture -afebrile -Pain management Problems reviewed: Yes Code(s): S91.301A - UNSPECIFIED OPEN WOUND, RIGHT FOOT, INITIAL ENCOUNTER (2) Atrial fibrillation Assessment/Plan: -Hold warfarin for supratherapeutic INR -Check daily INR -No overt bleeding Problems reviewed: Yes Code(s): I48.91 - UNSPECIFIED ATRIAL FIBRILLATION Qualifiers: Atrial fibrillation type: chronic (3) CAD (coronary artery disease) Assessment/Plan: -Continue BB+ Statin Problems reviewed: Yes Code(s): I25.10 - ATHSCL HEART DISEASE OF [place] CORONARY ARTERY W/O ANG PCTRS (4) CKD (chronic kidney disease) Assessment/Plan: -Nephrology consult -Cr at baseline -monitor trend Problems reviewed: Yes Code(s): N18.9 - CHRONIC KIDNEY DISEASE, UNSPECIFIED (5) Cellulitis Assessment/Plan: -as above Problems reviewed: Yes Code(s): L03.90 - CELLULITIS, UNSPECIFIED (6) Hypokalemia Assessment/Plan: -KCL 10 meq x 3 + KCL 40 meq PO BID -monitor trend -Nephrology on board Problems reviewed: Yes Code(s): E87.6 - HYPOKALEMIA (7) PAD Problems reviewed: Yes Per Vascular--consult appreciated
[2020-01-23] MEDS ORDERED: traMADol HCL 50 MG TABLET PO PRN (15:33)
[2020-01-23] MEDS ORDERED: oxyCODONE HCL 5 MG TABLET PO PRN (15:37)
[2020-01-23] MEDS ORDERED: PT OWN MED DRAWER 7, Y5N ONE (20:56)
[2020-01-23] MEDS: ATORVASTATIN CA 20 MG TABLET (FP) PO SCH (21:21)
[2020-01-23] MEDS: TERAZOSIN HCL 1 MG CAPSULE PO SCH (21:22)
[2020-01-23] MEDS: LATANOPROST 0.005% OPHTH SOLN 2.5ML BOTTLE OU SCH (21:24)
[2020-01-24] MEDS ORDERED: PT OWN MED DRAWER 7, Y5N ONE ×4 (04:47→17:01)
[2020-01-24] MEDS: hydrALAZINE HCL 25 MG TABLET (FP) PO SCH ×2 (05:45→14:20)
[2020-01-24] MEDS: BUMETANIDE 1 MG TABLET PO SCH ×2 (05:45→17:06)
[2020-01-24 07:31] LABS: HEMATOCRIT 25.6 % (35.4-49); HEMOGLOBIN 8.3 GM/dL (11.7-16.9); MCH 29.6 pg (25.7-33.7); MCHC 32.4 g/dl (32.0-35.9); MEAN CELL VOLUME 91.1 fl (80-96); PLATELET COUNT 147 K/MM3 (134-434); RBC 2.81 M/mm3 (4.00-5.60); RDW 20.4 % (11.9-15.9); WHITE BLOOD COUNT 6.8 K/mm3 (4.0-10.0)
[2020-01-24 07:57] LABS: BLOOD UREA NITROGEN 26.9 mg/dL (7-18); CREATININE 1.4 mg/dL (0.55-1.3); MAGNESIUM 1.9 mg/dL (1.8-2.4); PHOSPHOROUS 2.8 mg/dL (2.5-4.9)
--- NOTE | 2020-01-24 09:33 | DS ---
Physical Examination Vital Signs: Vital Signs Temperature 98.2 F 01/24/20 06:00 Pulse Rate 64 01/24/20 06:00 Respiratory Rate 18 01/24/20 06:00 Blood Pressure 152/70 01/24/20 06:00 O2 Sat by Pulse Oximetry (%) 99 01/24/20 06:00 Cardiovascular: Yes: Regular Rate and Rhythm Respiratory: Yes: Regular, CTA Bilaterally Gastrointestinal: Yes: Normal Bowel Sounds, Soft Labs: CBC, BMP 01/24/20 06:55 01/24/20 06:55 Discharge Summary Problems reviewed: Yes Reason For Visit: WOUND OF LOWER EXTREMITY CELLULITIS Current Active Problems Encounter for screening laboratory testing for COVID-19 virus (Acute) Hypokalemia (Acute) Supratherapeutic INR (Acute) Wound of right foot (Acute) Hospital Course: - Problems (1) Wound of right foot Assessment/Plan: -Podiatry consult -Vascular consult noted await duplex -IV abx -ID consult -ESR/CRP elevated - MRI RLE c/w osteomyelitis -Also Check A1c -Wound culture -afebrile -Pain management Problems reviewed: Yes Code(s): S91.301A - UNSPECIFIED OPEN WOUND, RIGHT FOOT, INITIAL ENCOUNTER (2) Atrial fibrillation Assessment/Plan: -Hold warfarin for supratherapeutic INR -Check daily INR -No overt bleeding Problems reviewed: Yes Code(s): I48.91 - UNSPECIFIED ATRIAL FIBRILLATION Qualifiers: Atrial fibrillation type: chronic (3) CAD (coronary artery disease) Assessment/Plan: -Continue BB+ Statin Problems reviewed: Yes Code(s): I25.10 - ATHSCL HEART DISEASE OF [place] CORONARY ARTERY W/O ANG PCTRS (4) CKD (chronic kidney disease) Assessment/Plan: -Nephrology consult -Cr at baseline -monitor trend Problems reviewed: Yes Code(s): N18.9 - CHRONIC KIDNEY DISEASE, UNSPECIFIED (5) Cellulitis Assessment/Plan: -as above Problems reviewed: Yes Code(s): L03.90 - CELLULITIS, UNSPECIFIED (6) Hypokalemia Assessment/Plan: -KCL 10 meq x 3 + KCL 40 meq PO BID -monitor trend -Nephrology on board Problems reviewed: Yes Code(s): E87.6 - HYPOKALEMIA (7) PAD Problems reviewed: Yes Per Vascular--consult appreciated Condition: Good - Instructions Referrals: Annabi,Iyad, MD [Primary Care Provider] - Jose Angel Arguelles MD [Non Staff, Medical] - - Home Medications Comprehensive Discharge Medication List: Ambulatory Orders Docusate Sodium [Colace] 100 mg PO BID 06/16/17 Terazosin HCl 4 mg PO HS 06/16/17 Acetaminophen [Tylenol] 650 mg PO PRN 11/18/19 Budesonide/Formeterol Fumarate [SYMBICORT 160/4.5mcg -] 1 puff IN QID 11/18/19 Latanoprost/Pf [Latanoprost 0.005% Eye Drop] 1 drop OU HS 11/18/19 Tramadol HCl 50 mg PO PRN 11/18/19 Albuterol 2.5/Ipratropium 0.5 [Duoneb -] 1 amp NEB RQID amp 11/24/19 Lactobacillus Acidophilus [Bacid -] 1 tab PO DAILY tab 11/24/19 Lidocaine 5% Top. Ointment [Xylocaine 5% Top. Ointment -] 1 applic TP BID PRN tube 11/24/19 Pantoprazole Sodium [Protonix -] 40 mg PO DAILY tablet.ec 11/24/19 Potassium Chloride [K-Dur -] 40 meq PO AM tablet.er 11/24/19 Atenolol [Tenormin] 25 mg PO BID 01/16/20 Atorvastatin Ca [Lipitor] 20 mg PO HS 01/16/20 Bifidobacterium Infantis [Align] 10.5 mg PO DAILY 01/16/20 Bumetanide 2 mg PO BID 01/16/20 Warfarin Na [Coumadin -] 2 mg PO DAILY@1800 01/16/20 hydrALAZINE HCL [Apresoline -] 25 mg PO TID 01/16/20 Ceftriaxone [Rocephin -] 2 gm IVPB DAILY vial 01/24/20
[2020-01-24] MEDS ORDERED: DEXTROSE 5%-WATER 100 ML IVPB ONE (09:53)
[2020-01-24] MEDS: PANTOPRAZOLE 40 MG TABLET PO SCH (10:19)
[2020-01-24] MEDS: DOCUSATE SODIUM 100 MG CAPSULE (FP) PO SCH (10:19)
[2020-01-24] MEDS: POTASSIUM CHLORIDE TABS 20 MEQ TABLET.ER (FP) PO SCH ×2 (10:19→14:20)
[2020-01-24] MEDS: LACTOBACILLUS ACIDOPHILUS 1 TABLET PO SCH (10:19)
[2020-01-24] MEDS: CEFTRIAXONE 2 GM in DEXTROSE 5%-WATER 100 ML IVPB SCH (10:19)
[2020-01-24] MEDS: BUDESONIDE/FORMETEROL FUMARATE 160/4.5 mcg INHALER IH SCH ×3 (10:20→17:56)
--- NOTE | 2020-01-24 10:42 | PN ---
Progress Note (short form) - Note Progress Note: VASCULAR SURGERY 89 yo male with history of previous smoking, now quite x 25 years. Multiple vascular surgeries, AAA/CEA and RLE bypass. He has a right foot infection and cellulitis and drainage from the plantar wound. The wound extends from the plantar aspect at base of 2nd toe to the 1/2 toe web space. For now the wound appears to be decompressed, recommend betadine gauze with kerlix. Cont local wound care with santyl. Needs IV antibiotics for osteo. ID on case. Conservative therapy. If foot gets worse, will probably need CO2 angiogram. 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 A/P: Will need half-way IVABX via PICC No surgical intervention needed. Cont medical management Patient should f/u with Dr. Arguelles in [facility] 7 days after discharge On behalf of Dr. Arguelles, thank you for the opportunity to participate in your patient's care
[2020-01-24] MEDS ORDERED: ATENOLOL 50 MG TABLET (FP) PO SCH ×2 (10:44→11:30)
--- NOTE | 2020-01-24 11:23 | PN ---
Progress Note, Physician Chief Complaint: AWAKE, ALERT IN BED OFFERS NO COMPLAINTS AFEBRILE WBC AZOTEMIA IMPROVED CR 1.5 VANCOMYCIN LEVEL NOTED 16.4 WOUND C/S MIXED, INCLUDING MRSA - Current Medication List Current Medications: Active Medications Acetaminophen (Tylenol -) 1,000 mg PO Q6H PRN PRN Reason: PAIN LEVEL 1 - 3 Last Admin: 01/18/20 04:35 Dose: 1,000 mg Documented by: Albuterol Sulfate (Ventolin Hfa Inhaler -) 2 puff IH Q4H PRN PRN Reason: SHORT OF BREATH/WHEEZING Atenolol (Tenormin -) 50 mg PO BID [facility] Atorvastatin Calcium (Lipitor -) 20 mg PO [facility] Last Admin: 01/23/20 21:21 Dose: 20 mg Documented by: Budesonide/Formoterol Fumarate (Symbicort 160/4.5mcg -) 1 puff IH QID [facility] Last Admin: 01/24/20 10:20 Dose: 1 puff Documented by: Bumetanide (Bumex -) 2 mg PO BID@0600,1800 [facility] Last Admin: 01/24/20 05:45 Dose: 2 mg Documented by: Docusate Sodium (Colace -) 100 mg PO BID [facility] Last Admin: 01/24/20 10:19 Dose: 100 mg Documented by: Hydralazine HCl (Apresoline -) 25 mg PO TID [facility] Last Admin: 01/24/20 05:45 Dose: 25 mg Documented by: Ceftriaxone Sodium 2 gm/ (Dextrose) 100 mls @ 200 mls/hr IVPB DAILY [facility]; Protocol Last Admin: 01/24/20 10:19 Dose: 200 mls/hr Documented by: Lactobacillus Acidophilus (Bacid -) 1 tab PO DAILY [facility] Last Admin: 01/24/20 10:19 Dose: 1 tab Documented by: Latanoprost (Xalatan 0.005% Eye Drops -) 1 drop OU [facility] Last Admin: 01/23/20 21:24 Dose: 1 drop Documented by: Oxycodone HCl (Roxicodone -) 5 mg PO Q6H PRN PRN Reason: PAIN LEVEL 7 - 10 Pantoprazole Sodium (Protonix -) 40 mg PO DAILY [facility] Last Admin: 01/24/20 10:19 Dose: 40 mg Documented by: Potassium Chloride (K-Dur -) 40 meq PO BID@0800,1400 [facility] Last Admin: 01/24/20 10:19 Dose: 40 meq Documented by: Terazosin HCl (Hytrin -) 4 mg PO HS [facility] Last Admin: 01/23/20 21:22 Dose: 4 mg Documented by: Tramadol HCl (Ultram -) 50 mg PO Q6H PRN PRN Reason: PAIN LEVEL 4 - 6 Last Admin: 01/23/20 22:41 Dose: 50 mg Documented by: - Objective Vital Signs: Vital Signs Temperature 98.2 F 01/24/20 06:00 Pulse Rate 64 01/24/20 06:00 Respiratory Rate 18 01/24/20 06:00 Blood Pressure 152/70 01/24/20 06:00 O2 Sat by Pulse Oximetry (%) 99 01/24/20 06:00 Cardiovascular: Yes: Regular Rate and Rhythm, S1, S2 Respiratory: Yes: CTA Bilaterally Gastrointestinal: Yes: Normal Bowel Sounds, Soft. No: Tenderness Extremities: Yes: Other (+ erythema le bilaterally R plantar wound dry) Labs: CBC, BMP 01/24/20 06:55 01/24/20 06:55 INR, PTT INR 1.88 (0.83-1.09) H 01/23/20 06:40 Assessment/Plan BILATERAL LE CELLULITIS IMPROVED OSTEOMYELITIS R FOOT AZOTEMIA IMPROVED PCN ALLERGY S/P AVR SUBSTITUTE ERTAPENEM 500MG QD + VANCOMYCIN 500MG QD X 5 WEEKS MONITOR CBC BMP ESR CRP VANCO TROUGH LEVELS
[2020-01-24] MEDS ORDERED: VANCOMYCIN 500 MG in DEXTROSE 5%-WATER 100 ML IVPB SCH (12:00)
[2020-01-24] MEDS ORDERED: ERTAPENEM SODIUM 0.5 GM in SODIUM CHLORIDE 50 ML IVPB SCH (12:00)
[2020-01-24] MEDS: ATENOLOL 25 MG TABLET (FP) PO SCH (13:35)
[2020-01-24 13:45] VITALS: BP 158/90; PULSE 75; TEMP 97.7
[2020-01-24] MEDS ORDERED: ERTAPENEM SODIUM 1 GM VIAL ONE (16:10)
--- NOTE | 2020-01-24 18:50 | PN ---
Progress Note, Physician Chief Complaint: Leg wound History of Present Illness: Seen and examined at the bedside awake and alert offers no acute complaints, leg swelling improved denies any sob, cp, fever, chills, N/V/D making urine for discharge today - Current Medication List Current Medications: Active Medications Acetaminophen (Tylenol -) 1,000 mg PO Q6H PRN PRN Reason: PAIN LEVEL 1 - 3 Last Admin: 01/18/20 04:35 Dose: 1,000 mg Documented by: Albuterol Sulfate (Ventolin Hfa Inhaler -) 2 puff IH Q4H PRN PRN Reason: SHORT OF BREATH/WHEEZING Atenolol (Tenormin -) 50 mg PO BID [facility] Last Admin: 01/24/20 11:56 Dose: 50 mg Documented by: Atorvastatin Calcium (Lipitor -) 20 mg PO [facility] Last Admin: 01/23/20 21:21 Dose: 20 mg Documented by: Budesonide/Formoterol Fumarate (Symbicort 160/4.5mcg -) 1 puff IH QID [facility] Last Admin: 01/24/20 17:56 Dose: 1 puff Documented by: Bumetanide (Bumex -) 2 mg PO BID@0600,1800 [facility] Last Admin: 01/24/20 17:06 Dose: 2 mg Documented by: Docusate Sodium (Colace -) 100 mg PO BID [facility] Last Admin: 01/24/20 10:19 Dose: 100 mg Documented by: Hydralazine HCl (Apresoline -) 25 mg PO TID [facility] Last Admin: 01/24/20 14:20 Dose: 25 mg Documented by: Ertapenem 0.5 gm/ Sodium (Chloride) 50 mls @ 100 mls/hr IVPB DAILY [facility] Last Admin: 01/24/20 17:05 Dose: 100 mls/hr Documented by: Vancomycin HCl 500 mg/ (Dextrose) 100 mls @ 200 mls/hr IVPB Q24H [facility]; Protocol Last Admin: 01/24/20 15:24 Dose: 200 mls/hr Documented by: Lactobacillus Acidophilus (Bacid -) 1 tab PO DAILY [facility] Last Admin: 01/24/20 10:19 Dose: 1 tab Documented by: Latanoprost (Xalatan 0.005% Eye Drops -) 1 drop OU [facility] Last Admin: 01/23/20 21:24 Dose: 1 drop Documented by: Oxycodone HCl (Roxicodone -) 5 mg PO Q6H PRN PRN Reason: PAIN LEVEL 7 - 10 Pantoprazole Sodium (Protonix -) 40 mg PO DAILY [facility] Last Admin: 01/24/20 10:19 Dose: 40 mg Documented by: Potassium Chloride (K-Dur -) 40 meq PO BID@0800,1400 [facility] Last Admin: 01/24/20 14:20 Dose: 40 meq Documented by: Terazosin HCl (Hytrin -) 4 mg PO HS [facility] Last Admin: 01/23/20 21:22 Dose: 4 mg Documented by: Tramadol HCl (Ultram -) 50 mg PO Q6H PRN PRN Reason: PAIN LEVEL 4 - 6 Last Admin: 01/23/20 22:41 Dose: 50 mg Documented by: - Objective Vital Signs: Vital Signs Temperature 97.7 F 01/24/20 13:44 Pulse Rate 75 01/24/20 13:44 Respiratory Rate 18 01/24/20 13:44 Blood Pressure 158/90 01/24/20 13:44 O2 Sat by Pulse Oximetry (%) 99 01/24/20 06:00 Constitutional: Yes: No Distress, Calm HENT: Yes: Atraumatic Neck: Yes: Supple Cardiovascular: Yes: Regular Rate and Rhythm Respiratory: Yes: Regular Gastrointestinal: Yes: Soft Extremities: Yes: Erythema. No: Cyanosis Edema: Yes Edema: LLE: Trace, RLE: Trace Labs: CBC, BMP 01/24/20 06:55 01/24/20 06:55 INR, PTT INR 1.88 (0.83-1.09) H 01/23/20 06:40 Assessment/Plan 89 year old man with pmhx of copd, htn, tia, cad, cabg, ckd, pad, and osto who presents with worsening right foot infection. 1. CKD stage 4 2. LE Cellulitis and non-heading wound on foot 3. LE edema 4. PVD Renal function stable Continue BUMEX 2mg BID on discharge. Continue daily KCl Outpatient antibiotics as per ID Podiatry and vascular follow up Trend renal function and electrolytes daily s/p Epogen for anemia. Will follow up in our office next week for monitoring of renal function Ko Toth DO
== END 2020-01-24 19:22 | disposition home or self-care (01) | DRG 540 ==
LOC: JER 15:34 → JERBED 19:43 → J7W 21:00
PROVIDERS: ADMIT Internal Medicine; ATTEND Family Medicine
PROC: 02HV33Z Insertion of Infusion Device into Superior Vena Cava, Percutaneous Approach (ICD-10-PCS; principal; 2020-01-24)
DX: M86.9 Osteomyelitis, unspecified (principal); L03.115 Cellulitis of right lower limb; I13.0 Hypertensive heart and chronic kidney disease with heart failure and stage 1 through stage 4 chronic kidney disease, or unspecified chronic kidney disease; I50.32 Chronic diastolic (congestive) heart failure; N18.4 Chronic kidney disease, stage 4 (severe); L03.116 Cellulitis of left lower limb; I73.9 Peripheral vascular disease, unspecified; S91.301A Unspecified open wound, right foot, initial encounter; I25.10 Atherosclerotic heart disease of native coronary artery without angina pectoris; J44.9 Chronic obstructive pulmonary disease, unspecified; E87.6 Hypokalemia; R79.1 Abnormal coagulation profile; I48.91 Unspecified atrial fibrillation; A49.02 Methicillin resistant Staphylococcus aureus infection, unspecified site; Z95.1 Presence of aortocoronary bypass graft; T14.90XA Injury, unspecified, initial encounter; X58.XXXA Exposure to other specified factors, initial encounter; Y93.89 Activity, other specified; Y92.9 Unspecified place or not applicable; Y99.9 Unspecified external cause status; Z88.0 Allergy status to penicillin
CPT/HCPCS: 36415; 36569; 71045-TC-FY; 73630-TC-RT-FY; 73718-TC-RT; 77001-TC-FY; 80048; 80053; 82728; 83036; 83540; 83550; 83605; 83735; 84100; 85025; 85027; 85610; 85651; 86140; 87040; 87070; 87077; 87186; 87205; 93005; 93010; 93926-TC; 97116-GP; 97161-GP; 99285-25; C1751; G0480; J0885; U0003

== ENCOUNTER 2020-01-25 10:40 | Day surgery (SDC) | payer OTHER, MEDICARE ==
[2020-01-25 11:29] LABS: HEMATOCRIT 27.4 % (35.4-49); HEMOGLOBIN 8.8 GM/dL (11.7-16.9); MCH 29.4 pg (25.7-33.7); MCHC 32.2 g/dl (32.0-35.9); MEAN CELL VOLUME 91.1 fl (80-96); MEAN PLT VOLUME 8.1 fl (7.5-11.1); PLATELET COUNT 148 K/MM3 (134-434); RBC 3.01 M/mm3 (4.00-5.60); RDW 20.9 % (11.9-15.9); WHITE BLOOD COUNT 8.1 K/mm3 (4.0-10.0)
[2020-01-25] MEDS ORDERED: VANCOMYCIN 500 MG in DEXTROSE 5%-WATER - 100 ML IVPB ONE (12:00)
[2020-01-25] MEDS ORDERED: ERTAPENEM SODIUM 0.5 GM in SODIUM CHLORIDE 50 ML IVPB ONE (12:00)
[2020-01-25 12:09] LABS: BLOOD UREA NITROGEN 29.9 mg/dL (7-18); CALCIUM 8.1 mg/dL (8.5-10.1); CREATININE 1.7 mg/dL (0.55-1.3); POTASSIUM 3.9 mmol/L (3.5-5.1)
[2020-01-25 14:22] LABS: ERYTHROCYTE SEDIMENTATION RATE 87 mm/hr (0-20)
[2020-01-25 14:48] VITALS: BP 147/71; PULSE 76; TEMP 98.1
== END 2020-01-25 14:00 | disposition home or self-care (01) ==
LOC: JINFUSION 10:40 → J7W 10:59 → JINFUSION 14:00
PROVIDERS: ATTEND Internal Medicine
DX: M86.171 Other acute osteomyelitis, right ankle and foot (principal); I13.0 Hypertensive heart and chronic kidney disease with heart failure and stage 1 through stage 4 chronic kidney disease, or unspecified chronic kidney disease; N18.9 Chronic kidney disease, unspecified; I50.9 Heart failure, unspecified; I48.91 Unspecified atrial fibrillation; E78.5 Hyperlipidemia, unspecified; J44.9 Chronic obstructive pulmonary disease, unspecified; N40.0 Benign prostatic hyperplasia without lower urinary tract symptoms; Z95.1 Presence of aortocoronary bypass graft; Z99.81 Dependence on supplemental oxygen
CPT/HCPCS: 36415; 80048; 85027; 85651; 86140; 96365; 96366; 96367; G0480

== ENCOUNTER 2020-01-26 06:21 | Day surgery (SDC) | payer OTHER, MEDICARE ==
[2020-01-26] MEDS ORDERED: ERTAPENEM SODIUM 0.5 GM in SODIUM CHLORIDE 50 ML IVPB ONE (11:15)
[2020-01-26] MEDS ORDERED: VANCOMYCIN 500 MG in DEXTROSE 5%-WATER - 100 ML IVPB ONE (11:15)
[2020-01-26 12:32] VITALS: BP 137/70; PULSE 78; TEMP 98.9
== END 2020-01-26 13:10 | disposition home or self-care (01) ==
LOC: JINFUSION 06:21 → J7W 10:52 → JINFUSION 13:10
PROVIDERS: ATTEND Internal Medicine
DX: M86.171 Other acute osteomyelitis, right ankle and foot (principal); I13.0 Hypertensive heart and chronic kidney disease with heart failure and stage 1 through stage 4 chronic kidney disease, or unspecified chronic kidney disease; M18.9 Osteoarthritis of first carpometacarpal joint, unspecified; I50.9 Heart failure, unspecified; I48.91 Unspecified atrial fibrillation; E78.5 Hyperlipidemia, unspecified; J44.9 Chronic obstructive pulmonary disease, unspecified; N40.0 Benign prostatic hyperplasia without lower urinary tract symptoms; Z95.1 Presence of aortocoronary bypass graft; Z99.81 Dependence on supplemental oxygen
CPT/HCPCS: 96365; 96367

== ENCOUNTER 2020-01-27 06:37 | Day surgery (SDC) | payer OTHER, MEDICARE ==
[2020-01-27] MEDS ORDERED: ERTAPENEM SODIUM 0.5 GM in SODIUM CHLORIDE 50 ML IVPB ONE (11:30)
[2020-01-27] MEDS ORDERED: VANCOMYCIN 500 MG in DEXTROSE 5%-WATER - 100 ML IVPB ONE (11:30)
[2020-01-27 12:27] VITALS: BP 162/82; PULSE 78; TEMP 98.3
== END 2020-01-27 14:37 | disposition home or self-care (01) ==
LOC: JINFUSION 06:37 → J7W 10:43 → JINFUSION 14:37
PROVIDERS: ATTEND Internal Medicine
DX: M86.171 Other acute osteomyelitis, right ankle and foot (principal); I13.0 Hypertensive heart and chronic kidney disease with heart failure and stage 1 through stage 4 chronic kidney disease, or unspecified chronic kidney disease; N18.9 Chronic kidney disease, unspecified; I50.9 Heart failure, unspecified; I48.91 Unspecified atrial fibrillation; E78.5 Hyperlipidemia, unspecified; J44.9 Chronic obstructive pulmonary disease, unspecified; N40.0 Benign prostatic hyperplasia without lower urinary tract symptoms; Z95.1 Presence of aortocoronary bypass graft; Z99.81 Dependence on supplemental oxygen
CPT/HCPCS: 96365; 96366; 96367

== ENCOUNTER 2020-01-28 07:07 | Day surgery (SDC) | payer OTHER, MEDICARE ==
[2020-01-28] MEDS ORDERED: ERTAPENEM SODIUM 1 GM in SODIUM CHLORIDE 50 ML IVPB ONE (11:00)
[2020-01-28] MEDS ORDERED: VANCOMYCIN 500 MG in DEXTROSE 5%-WATER 100 ML IVPB ONE (11:00)
[2020-01-28 11:52] VITALS: TEMP 98.5
[2020-01-28] MEDS ORDERED: ERTAPENEM SODIUM 1 GM VIAL ONE (11:53)
[2020-01-28] MEDS ORDERED: SODIUM CHLORIDE 50 ML IVPB ONE (11:53)
[2020-01-28 13:45] VITALS: BP 153/83; PULSE 74
== END 2020-01-28 12:45 | disposition home or self-care (01) ==
LOC: JINFUSION 07:07 → J7W 11:04 → JINFUSION 12:45
PROVIDERS: ATTEND Internal Medicine
DX: M86.171 Other acute osteomyelitis, right ankle and foot (principal); I13.0 Hypertensive heart and chronic kidney disease with heart failure and stage 1 through stage 4 chronic kidney disease, or unspecified chronic kidney disease; N18.9 Chronic kidney disease, unspecified; I50.9 Heart failure, unspecified; I48.91 Unspecified atrial fibrillation; E78.5 Hyperlipidemia, unspecified; J44.9 Chronic obstructive pulmonary disease, unspecified; N40.0 Benign prostatic hyperplasia without lower urinary tract symptoms; Z95.1 Presence of aortocoronary bypass graft; Z99.81 Dependence on supplemental oxygen
CPT/HCPCS: 96365; 96366; 96367

== ENCOUNTER 2020-01-29 10:45 | Day surgery (SDC) | payer OTHER, MEDICARE ==
[2020-01-29] MEDS ORDERED: ERTAPENEM SODIUM 1 GM VIAL ONE (11:24)
[2020-01-29] MEDS ORDERED: SODIUM CHLORIDE 50 ML IVPB ONE (11:25)
[2020-01-29] MEDS ORDERED: ERTAPENEM SODIUM 0.5 GM in SODIUM CHLORIDE 50 ML IVPB ONE (12:00)
[2020-01-29] MEDS ORDERED: VANCOMYCIN 500 MG in DEXTROSE 5%-WATER 100 ML IVPB ONE (12:00)
[2020-01-29 13:32] VITALS: BP 147/78; PULSE 78; TEMP 98
== END 2020-01-29 13:33 | disposition home or self-care (01) ==
LOC: J7W 10:45 → JINFUSION 10:45
PROVIDERS: ATTEND Internal Medicine
DX: M86.171 Other acute osteomyelitis, right ankle and foot (principal); I13.0 Hypertensive heart and chronic kidney disease with heart failure and stage 1 through stage 4 chronic kidney disease, or unspecified chronic kidney disease; N18.9 Chronic kidney disease, unspecified; I50.9 Heart failure, unspecified; I48.91 Unspecified atrial fibrillation; E78.5 Hyperlipidemia, unspecified; J44.9 Chronic obstructive pulmonary disease, unspecified; N40.0 Benign prostatic hyperplasia without lower urinary tract symptoms; Z95.1 Presence of aortocoronary bypass graft; Z99.81 Dependence on supplemental oxygen
CPT/HCPCS: 96365; 96366; 96367

== ENCOUNTER 2020-01-30 05:56 | Day surgery (SDC) | payer OTHER, MEDICARE ==
[2020-01-30] MEDS ORDERED: VANCOMYCIN 500 MG in DEXTROSE 5%-WATER 100 ML IVPB ONE (11:00)
[2020-01-30] MEDS ORDERED: ERTAPENEM SODIUM 0.5 GM in SODIUM CHLORIDE 50 ML IVPB ONE (11:00)
[2020-01-30] MEDS ORDERED: SODIUM CHLORIDE 50 ML IVPB ONE (11:02)
[2020-01-30] MEDS ORDERED: ERTAPENEM SODIUM 1 GM VIAL ONE (11:02)
[2020-01-30 12:57] VITALS: BP 133/71; PULSE 74; TEMP 98
== END 2020-01-30 13:59 | disposition home or self-care (01) ==
LOC: JINFUSION 05:56 → J7W 10:49 → JINFUSION 13:59
PROVIDERS: ATTEND Internal Medicine
DX: M86.171 Other acute osteomyelitis, right ankle and foot (principal); L03.115 Cellulitis of right lower limb
CPT/HCPCS: 96365; 96366; 96367

== ENCOUNTER 2020-01-31 05:59 | Day surgery (SDC) | payer OTHER, MEDICARE ==
--- OUTSIDE RECORDS SUMMARY | 2020-01-31 06:03 | XMS ---
:1930 Author Organization [facility] Support Name Relationship Address Phone RE, RETIRED Unavailable Unavailable Unavailable RE Unavailable Unavailable Unavailable COMFORT ESCOTO [address] [place] [address] COMFORT ESCOTO Spouse [address] [place] [place] [address] Re-disclosure Warning The records that you are about to access may contain information from federally- assisted alcohol or drug abuse programs. If such information is present, then the following federally mandated warning applies: This information has been disclosed to you from records protected by federal confidentiality rules (42 CFR part 2). The federal rules prohibit you from making any further disclosure of this information unless further disclosure is expressly permitted by the written consent of the person to whom it pertains or as otherwise permitted by 42 CFR part 2. A general authorization for the release of medical or other information is NOT sufficient for this purpose. The Federal rules restrict any use of the information to criminally investigate or prosecute any alcohol or drug abuse patient.The records that you are about to access may contain highly sensitive health information, the redisclosure of which is protected by Article 27-F of the [facility] Public Health law. If you continue you may haveaccess to information: Regarding HIV / AIDS; Provided by facilities licensed or operated by the [facility] Office of Mental Health; or Provided by the [facility] Office for People With Developmental Disabilities. If such information is present, then the following [facility] mandated warning applies: This information has been disclosed to you from confidential records which are protected by state law. State law prohibits you from making any further disclosure of this information without the specific written consent of the person to whom it pertains, or as otherwise permitted by law. Any unauthorized further disclosure in violation of state law may result in a fine or longterm sentence or both. A general authorization for the release of medical or other information is NOT sufficient authorization for further disclosure. Insurance Providers Payer name Policy type Policy ID Covered Covered green party's Policy P luis / Coverage green party ID relationship to Betts Inf ormation type betts MEDICARE [id number] SP [id number] V49 AAR HEALTH [id number] SP [id number] CARE OPTIONS MEDICARE [id number] SP [id number] V49 AAR HEALTH [id number] SP [id number] CARE OPTIONS MEDICARE [id number] SP [id number] V49 MEDICARE [id number] SP [id number] V49 [place] [id number] SP [id number] COMPLETE Results ID Date Data Source [id number] 01/16/2020 05:10:00 PM EDT [facility] Name Value Range Interpretation Description Data Sup porting Code Source(s) Document(s ) SARS [facility] coronavirus 2 RNA This lab was ordered by [facility] and reported by [facility]. ID Date Data Source [id number] 11/25/2019 12:00:00 AM EDT [facility] Name Value Range Interpretation Code Description Data Nessa rce(s) Supporting Document(s ) 2019-nCoV [facility] RNA XXX ERIC+probe- Imp This lab was ordered by [facility] and reported by [employer]. ID Date Data Source [id number] 11/18/2019 11:38:00 PM EDT [facility] Name Value Range Interpretation Description Data Sup porting Code Source(s) Document(s ) SARS [facility] CORONAVIRUS 2 RNA This lab was ordered by [facility] and reported by [facility]. ID Date Data Source [id number] 10/27/2019 02:30:00 PM EDT [facility] Name Value Range Interpretation Description Data Sup porting Code Source(s) Document(s ) SARS [facility] CORONAVIRUS 2 RNA This lab was ordered by [facility] and reported by [facility]. Procedure
[2020-01-31] MEDS ORDERED: VANCOMYCIN 500 MG in DEXTROSE 5%-WATER - 100 ML IVPB ONE (11:00)
[2020-01-31] MEDS ORDERED: ERTAPENEM SODIUM IVPB ONE (11:00)
[2020-01-31] MEDS ORDERED: ERTAPENEM SODIUM 0.5 GM in SODIUM CHLORIDE 50 ML IVPB ONE (11:00)
[2020-01-31] MEDS ORDERED: SODIUM CHLORIDE IVPB ONE (11:00)
[2020-01-31 11:16] VITALS: PULSE 72; TEMP 97.6
[2020-01-31 13:25] VITALS: BP 155/99
== END 2020-01-31 15:11 | disposition home or self-care (01) ==
LOC: JINFUSION 05:59 → J7W 10:40 → JINFUSION 15:11
PROVIDERS: ATTEND Internal Medicine
DX: M86.171 Other acute osteomyelitis, right ankle and foot (principal); L03.115 Cellulitis of right lower limb
CPT/HCPCS: 96365; 96366; 96367

== ENCOUNTER 2020-02-01 05:15 | Day surgery (SDC) | payer OTHER, MEDICARE ==
--- OUTSIDE RECORDS SUMMARY | 2020-02-01 05:19 | XMS ---
:1930 Author Organization [facility] Support Name Relationship Address Phone RE, RETIRED Unavailable Unavailable Unavailable RE Unavailable Unavailable Unavailable COMFORT ESCOTO [address] [place] [address] COMFORT ESCOTO Spouse [address] [place] [address] Re-disclosure Warning The records that you are [...] is protected by Article 27-F of the [facility] Public Health law. If you continue you may haveaccess to information: Regarding HIV / AIDS; Provided by facilities licensed or operated by the [facility] Office of Mental Health; or Provided by the [facility] Office for People With Developmental Disabilities. If such information is present, then the following [facility] mandated warning applies: This information has been [...] law may result in a fine or snf sentence or both. A general authorization for the release of medical or other information is NOT sufficient authorization for further disclosure. Insurance Providers Payer name Policy type Policy ID Covered Covered libertarian's Policy P luis / Coverage libertarian ID relationship to [employer] orm[employer] type betts MEDICARE [id number] SP [id number] V49 AAR HEALTH [id number] SP [id number] CARE OPTIONS MEDICARE [id number] SP [id number] V49 AAR HEALTH [id number] SP [id number] CARE OPTIONS MEDICARE [id number] SP [id number] V49 MEDICARE [id number] SP [id number] V49 [place] [id number] SP [id number] COMPLETE Results ID Date Data Source [id number] 01/16/2020 05:10:00 PM EDT [facility] Name Value Range Interpretation Description Data Sup porting Code Source(s) Document(s ) SARS [facility] coronavirus 2 RNA This lab was ordered by [facility] and reported by [facility]. ID Date Data Source [id number] 11/25/2019 12:00:00 AM EDT [facility] Name Value Range Interpretation Code Description Data Nessa rce(s) Supporting Document(s ) 2019-nCoV [facility] RNA XXX ERIC+probe- Imp This lab was ordered by [facility] and reported by [employer]. ID Date Data Source [id number] 11/18/2019 11:38:00 PM EDT [facility] Name Value Range Interpretation Description Data Sup porting Code Source(s) Document(s ) SARS [facility] CORONAVIRUS 2 RNA This lab was ordered by [facility] and reported by [facility]. ID Date Data Source [id number] 10/27/2019 02:30:00 PM EDT [facility] Name Value Range Interpretation Description Data Sup porting Code Source(s) Document(s ) SARS [facility] CORONAVIRUS 2 RNA This lab was ordered by [facility] and reported by [facility]. Procedure
[2020-02-01 11:26] LABS: HEMATOCRIT 26.6 % (35.4-49); HEMOGLOBIN 8.6 GM/dL (11.7-16.9); MCH 30.5 pg (25.7-33.7); MCHC 32.4 g/dl (32.0-35.9); MEAN PLT VOLUME 8.4 fl (7.5-11.1); PLATELET COUNT 112 K/MM3 (134-434); RBC 2.83 M/mm3 (4.00-5.60); RDW 20.7 % (11.9-15.9); WHITE BLOOD COUNT 5.5 K/mm3 (4.0-10.0)
[2020-02-01 11:52] LABS: BLOOD UREA NITROGEN 34.9 mg/dL (7-18); CALCIUM 8.2 mg/dL (8.5-10.1); POTASSIUM 5.7 mmol/L (3.5-5.1)
[2020-02-01] MEDS ORDERED: ERTAPENEM SODIUM 0.5 GM in SODIUM CHLORIDE 50 ML IVPB ONE (12:00)
[2020-02-01] MEDS ORDERED: VANCOMYCIN 500 MG in DEXTROSE 5%-WATER 100 ML IVPB ONE (12:00)
[2020-02-01 12:26] LABS: ERYTHROCYTE SEDIMENTATION RATE 63 mm/hr (0-20)
[2020-02-01 13:59] VITALS: BP 135/79; PULSE 77; TEMP 97.9
== END 2020-02-01 14:41 | disposition home or self-care (01) ==
LOC: JINFUSION 05:15 → J7W 11:23 → JINFUSION 14:41
PROVIDERS: ATTEND Internal Medicine
DX: M86.171 Other acute osteomyelitis, right ankle and foot (principal); L03.115 Cellulitis of right lower limb
CPT/HCPCS: 36415; 80048; 85027; 85651; 86140; 96365; 96367; G0480

== ENCOUNTER 2020-02-02 05:25 | Day surgery (SDC) | payer OTHER, MEDICARE ==
[2020-02-02 11:28] VITALS: TEMP 97.6
[2020-02-02] MEDS ORDERED: ERTAPENEM SODIUM 0.5 GM in SODIUM CHLORIDE 50 ML IVPB ONE (11:30)
[2020-02-02 12:46] VITALS: BP 120/62; PULSE 53
== END 2020-02-02 13:52 | disposition home or self-care (01) ==
LOC: JINFUSION 05:25 → J7W 10:47 → JINFUSION 13:52
PROVIDERS: ATTEND Internal Medicine
PROC: 3E033GC Introduction of Other Therapeutic Substance into Peripheral Vein, Percutaneous Approach (ICD-10-PCS; principal; 2020-02-02)
DX: M86.171 Other acute osteomyelitis, right ankle and foot (principal); L03.115 Cellulitis of right lower limb
CPT/HCPCS: 96365

== ENCOUNTER 2020-02-03 05:58 | Day surgery (SDC) | payer OTHER, MEDICARE ==
--- OUTSIDE RECORDS SUMMARY | 2020-02-03 06:02 | XMS ---
:1930 Author Organization [facility] Support Name Relationship Address Phone RE, RETIRED Unavailable Unavailable Unavailable RE Unavailable Unavailable Unavailable COMFORT ESCOTO [address] [place] [address] COMFORT ESCOTO Spouse [address] [place] [address] Re-disclosure Warning The records that you are [...] is protected by Article 27-F of the [facility] Public Health law. If you continue you may haveaccess to information: Regarding HIV / AIDS; Provided by facilities licensed or operated by the [facility] Office of Mental Health; or Provided by the [facility] Office for People With Developmental Disabilities. If such information is present, then the following [facility] mandated warning applies: This information has [...] name Policy type Policy ID Covered Covered democrat's Policy P luis / Coverage democrat ID relationship to Betts Inf ormation type betts MEDICARE [id number] SP [id number] V49 AAR HEALTH [id number] SP [id number] CARE OPTIONS MEDICARE [id number] SP [id number] V49 AAR HEALTH [id number] SP [id number] CARE OPTIONS MEDICARE [id number] SP [id number] V49 MEDICARE [id number] SP [id number] V49 [place] [place] [id number] SP [id number] COMPLETE Results ID Date Data Source [id number] 01/16/2020 05:10:00 PM EDT [facility] Name Value Range Interpretation Description Data Sup porting Code Source(s) Document(s ) SARS [facility] coronavirus 2 RNA This lab was ordered by [facility] and reported by [facility]. ID Date Data Source [id number] 11/25/2019 12:00:00 AM EDT [facility] Name Value Range Interpretation Code Description Data Nessa rce(s) Supporting Document(s ) 2019-nCoV [facility] RNA XXX ERIC+probe- Imp This lab was ordered by [facility] and reported by [employer]. ID Date Data Source [id number] 11/18/2019 11:38:00 PM EDT [facility] Name Value Range Interpretation Description Data Sup porting Code Source(s) Document(s ) SARS [facility] CORONAVIRUS 2 RNA This lab was ordered by [facility] and reported by [facility]. ID Date Data Source [id number] 10/27/2019 02:30:00 PM EDT [facility] Name Value Range Interpretation Description Data Sup porting Code Source(s) Document(s ) SARS [facility] CORONAVIRUS 2 RNA This lab was ordered by [facility] and reported by [facility]. Procedure
[2020-02-03] MEDS ORDERED: VANCOMYCIN 500 MG in DEXTROSE 5%-WATER 100 ML IVPB ONE (11:30)
[2020-02-03] MEDS ORDERED: ERTAPENEM SODIUM 1 GM in SODIUM CHLORIDE 50 ML IVPB ONE (11:30)
[2020-02-03 11:49] VITALS: TEMP 97.8
[2020-02-03 11:50] LABS: BLOOD UREA NITROGEN 37.4 mg/dL (7-18); CALCIUM 8.2 mg/dL (8.5-10.1); CREATININE 2.1 mg/dL (0.55-1.3); POTASSIUM 5.5 mmol/L (3.5-5.1)
[2020-02-03] MEDS ORDERED: SODIUM CHLORIDE 50 ML IVPB ONE (11:57)
[2020-02-03] MEDS ORDERED: ERTAPENEM SODIUM 1 GM VIAL ONE (11:57)
[2020-02-03] MEDS ORDERED: ERTAPENEM SODIUM 0.5 GM in SODIUM CHLORIDE 50 ML IVPB ONE (12:00)
[2020-02-03 13:02] VITALS: PULSE 62
[2020-02-03 13:25] VITALS: BP 166/76
== END 2020-02-03 15:36 | disposition home or self-care (01) ==
LOC: JINFUSION 05:58 → J7W 11:22 → JINFUSION 15:36
PROVIDERS: ATTEND Internal Medicine
DX: M86.171 Other acute osteomyelitis, right ankle and foot (principal); L03.115 Cellulitis of right lower limb
CPT/HCPCS: 36415; 80048; 96365; G0480

== ENCOUNTER 2020-02-04 10:54 | Day surgery (SDC) | payer OTHER, MEDICARE ==
--- OUTSIDE RECORDS SUMMARY | 2020-02-04 10:57 | XMS ---
:1930 Author Organization [facility] Support Name Relationship Address Phone RE, RETIRED Unavailable Unavailable Unavailable RE Unavailable Unavailable Unavailable COMFORT ESCOTO [address] [place] [address] COMFORT ESCOTO Spouse [address] [place] [address] Re-disclosure Warning The records that you are [...] is protected by Article 27-F of the [facility] Public Health law. If you continue you may haveaccess to information: Regarding HIV / AIDS; Provided by facilities licensed or operated by the [facility] Office of Mental Health; or Provided by the [facility] Office for People With Developmental Disabilities. If such information is present, then the following [facility] mandated warning applies: This information has [...] law may result in a fine or intermediate sentence or both. A general authorization for the release of medical or other information is NOT sufficient authorization for further disclosure. Insurance Providers Payer name Policy type Policy ID Covered Covered green party's Policy P luis / Coverage green party ID relationship to Betts Inf ormation type betts MEDICARE [id number] SP [id number] V49 AAR HEALTH [id number] SP [id number] CARE OPTIONS MEDICARE [id number] SP [id number] V49 AAR HEALTH [id number] SP [id number] CARE OPTIONS MEDICARE [id number] SP [id number] V49 MEDICARE [id number] SP [id number] V49 [place] [place] [id number] SP [id number] COMPLETE Results ID Date Data Source [id number] 01/16/2020 05:10:00 PM EDT [facility] Name Value Range Interpretation Description Data Sup porting Code Source(s) Document(s ) SARS [facility] coronavirus 2 RNA This lab was ordered by [facility] and reported by [facility]. ID Date Data Source [id number] 11/25/2019 12:00:00 AM EDT [facility] Name Value Range Interpretation Code Description Data Nessa rce(s) Supporting Document(s ) 2019-nCoV [facility] RNA XXX ERIC+probe- Imp This lab was ordered by [facility] and reported by [employer]. ID Date Data Source [id number] 11/18/2019 11:38:00 PM EDT [facility] Name Value Range Interpretation Description Data Sup porting Code Source(s) Document(s ) SARS [facility] CORONAVIRUS 2 RNA This lab was ordered by [facility] and reported by [facility]. ID Date Data Source [id number] 10/27/2019 02:30:00 PM EDT [facility] Name Value Range Interpretation Description Data Sup porting Code Source(s) Document(s ) SARS [facility] CORONAVIRUS 2 RNA This lab was ordered by [facility] and reported by [facility]. Procedure
[2020-02-04] MEDS ORDERED: VANCOMYCIN 500 MG in DEXTROSE 5%-WATER - 100 ML IVPB SCH (11:30)
[2020-02-04] MEDS ORDERED: ERTAPENEM SODIUM 0.5 GM in SODIUM CHLORIDE 50 ML IVPB ONE (11:30)
[2020-02-04 12:51] VITALS: BP 142/67; PULSE 88; TEMP 98.3
[2020-02-04 12:54] LABS: BLOOD UREA NITROGEN 33.9 mg/dL (7-18); CALCIUM 7.4 mg/dL (8.5-10.1); CREATININE 1.9 mg/dL (0.55-1.3)
== END 2020-02-04 13:30 | disposition home or self-care (01) ==
LOC: JINFUSION 10:54 → J7W 11:17 → JINFUSION 13:30
PROVIDERS: ATTEND Internal Medicine
DX: M86.171 Other acute osteomyelitis, right ankle and foot (principal); L03.115 Cellulitis of right lower limb; Z53.8 Procedure and treatment not carried out for other reasons
CPT/HCPCS: 36415; 80048; G0480

== ENCOUNTER 2020-02-05 10:56 | Day surgery (SDC) | payer OTHER, MEDICARE ==
[2020-02-05] MEDS ORDERED: ERTAPENEM SODIUM 0.5 GM in SODIUM CHLORIDE 50 ML IVPB ONE (11:00)
[2020-02-05] MEDS ORDERED: VANCOMYCIN 500 MG in DEXTROSE 5%-WATER - 100 ML IVPB ONE (11:00)
--- OUTSIDE RECORDS SUMMARY | 2020-02-05 11:00 | XMS ---
:1930 Author Organization [facility] Support Name Relationship Address Phone RE, RETIRED Unavailable Unavailable Unavailable RE Unavailable Unavailable Unavailable COMFORT ESCOTO [address] [place] [address] COMFORT ESCOTO Spouse [address] [place] [address] Re-disclosure Warning The records that you are [...] is protected by Article 27-F of the [facility] Public Health law. If you continue you may haveaccess to information: Regarding HIV / AIDS; Provided by facilities licensed or operated by the [facility] Office of Mental Health; or Provided by the [facility] Office for People With Developmental Disabilities. If such information is present, then the following [facility] mandated warning applies: This information has been [...] law may result in a fine or long-term sentence or both. A general authorization for the release of medical or other information is NOT sufficient authorization for further disclosure. Insurance Providers Payer name Policy type Policy ID Covered Covered libertarian's Policy P luis / Coverage libertarian ID relationship to Betts Inf ormation type betts MEDICARE [id number] SP [id number] V49 AAR HEALTH [id number] SP [id number] CARE OPTIONS MEDICARE [id number] SP [id number] V49 AAR HEALTH [id number] SP [id number] CARE OPTIONS MEDICARE [id number] SP [id number] V49 MEDICARE [id number] SP [id number] V49 [place] [place] [id number] SP [id number] COMPLETE Results ID Date Data Source [id number] 01/16/2020 05:10:00 PM EDT [facility] Name Value Range Interpretation Description Data Sup porting Code Source(s) Document(s ) SARS [facility] coronavirus 2 RNA This lab was ordered by [facility] and reported by [facility]. ID Date Data Source [id number] 11/25/2019 12:00:00 AM EDT [facility] Name Value Range Interpretation Code Description Data Nessa rce(s) Supporting Document(s ) 2019-nCoV [facility] RNA XXX ERIC+probe- Imp This lab was ordered by [facility] and reported by [employer]. ID Date Data Source [id number] 11/18/2019 11:38:00 PM EDT [facility] Name Value Range Interpretation Description Data Sup porting Code Source(s) Document(s ) SARS [facility] CORONAVIRUS 2 RNA This lab was ordered by [facility] and reported by [facility]. ID Date Data Source [id number] 10/27/2019 02:30:00 PM EDT [facility] Name Value Range Interpretation Description Data Sup porting Code Source(s) Document(s ) SARS [facility] CORONAVIRUS 2 RNA This lab was ordered by [facility] and reported by [facility]. Procedure
[2020-02-05 13:33] VITALS: BP 168/88; PULSE 78; TEMP 98.1
== END 2020-02-05 13:46 | disposition home or self-care (01) ==
LOC: JINFUSION 10:56 → J7W 10:57 → JINFUSION 13:46
PROVIDERS: ATTEND Internal Medicine
DX: M86.171 Other acute osteomyelitis, right ankle and foot (principal); L03.115 Cellulitis of right lower limb
CPT/HCPCS: 96365

== ENCOUNTER 2020-02-07 05:12 | Day surgery (SDC) | payer OTHER, MEDICARE ==
--- OUTSIDE RECORDS SUMMARY | 2020-02-07 05:17 | XMS ---
:1930 Author Organization [facility] Support Name Relationship Address Phone RE, RETIRED Unavailable Unavailable Unavailable RE Unavailable Unavailable Unavailable COMFORT ESCOTO [address] [place] [address] COMFORT ESCOTO Spouse [address] [place] [place] [address] Re-disclosure Warning The records that you are [...] is protected by Article 27-F of the [facility] Public Health law. If you continue you may haveaccess to information: Regarding HIV / AIDS; Provided by facilities licensed or operated by the [facility] Office of Mental Health; or Provided by the [facility] Office for People With Developmental Disabilities. If such information is present, then the following [facility] mandated warning applies: This information has [...] to Betts Inf ormation type betts MEDICARE [id number] SP [id number] V49 AAR HEALTH [id number] SP [id number] CARE OPTIONS MEDICARE [id number] SP [id number] V49 AAR HEALTH [id number] SP [id number] CARE OPTIONS MEDICARE [id number] SP [id number] V49 MEDICARE [id number] SP [id number] V49 [place] [id number] SP [id number] COMPLETE Results ID Date Data Source [id number] 01/16/2020 05:10:00 PM EDT [facility] Name Value Range Interpretation Description Data Sup porting Code Source(s) Document(s ) SARS [facility] coronavirus 2 RNA This lab was ordered by [facility] and reported by [facility]. ID Date Data Source [id number] 11/25/2019 12:00:00 AM EDT [facility] Name Value Range Interpretation Code Description Data Nessa rce(s) Supporting Document(s ) 2019-nCoV [facility] RNA XXX ERIC+probe- Imp This lab was ordered by [facility] and reported by [employer]. ID Date Data Source [id number] 11/18/2019 11:38:00 PM EDT [facility] Name Value Range Interpretation Description Data Sup porting Code Source(s) Document(s ) SARS [facility] CORONAVIRUS 2 RNA This lab was ordered by [facility] and reported by [facility]. ID Date Data Source [id number] 10/27/2019 02:30:00 PM EDT [facility] Name Value Range Interpretation Description Data Sup porting Code Source(s) Document(s ) SARS [facility] CORONAVIRUS 2 RNA This lab was ordered by [facility] and reported by [facility]. Procedure
[2020-02-07] MEDS ORDERED: ERTAPENEM SODIUM 0.5 GM in SODIUM CHLORIDE 50 ML IVPB ONE (11:30)
[2020-02-07 11:41] VITALS: TEMP 97.6
[2020-02-07 12:14] VITALS: BP 137/68; PULSE 70
== END 2020-02-07 12:15 | disposition home or self-care (01) ==
LOC: JINFUSION 05:12 → J7W 11:08 → JINFUSION 12:15
PROVIDERS: ATTEND Internal Medicine
DX: M86.171 Other acute osteomyelitis, right ankle and foot (principal); L03.115 Cellulitis of right lower limb
CPT/HCPCS: 96365

== ENCOUNTER 2020-02-08 06:51 | Day surgery (SDC) | payer OTHER, MEDICARE ==
--- OUTSIDE RECORDS SUMMARY | 2020-02-08 06:54 | XMS ---
:1930 Author Organization [facility] Support Name Relationship Address Phone RE, RETIRED Unavailable Unavailable Unavailable RE Unavailable Unavailable Unavailable COMFORT ESCOTO [address] [place] [address] COMFORT ESCOTO Spouse [address] [place] [place] [address] Re-disclosure Warning The records that you are [...] is protected by Article 27-F of the [facility] Public Health law. If you continue you may haveaccess to information: Regarding HIV / AIDS; Provided by facilities licensed or operated by the [facility] Office of Mental Health; or Provided by the [facility] Office for People With Developmental Disabilities. If such information is present, then the following [facility] mandated warning applies: This information [...] law may result in a fine or residential sentence or both. A general authorization for the release of medical or other information is NOT sufficient authorization for further disclosure. Insurance Providers Payer name Policy type Policy ID Covered Covered democrat's Policy P luis / Coverage democrat ID relationship to Betts Inf ormation type betts MEDICARE [id number] SP [id number] V49 AAR HEALTH [id number] SP [id number] CARE OPTIONS MEDICARE [id number] SP [id number] V49 AAR HEALTH [id number] SP [id number] CARE OPTIONS MEDICARE [id number] SP [id number] V49 MEDICARE [id number] SP [id number] V49 [place] [id number] SP [id number] COMPLETE Results ID Date Data Source [id number] 01/16/2020 05:10:00 PM EDT [facility] Name Value Range Interpretation Description Data Sup porting Code Source(s) Document(s ) SARS [facility] coronavirus 2 RNA This lab was ordered by [facility] and reported by [facility]. ID Date Data Source [id number] 11/25/2019 12:00:00 AM EDT [facility] Name Value Range Interpretation Code Description Data Nessa rce(s) Supporting Document(s ) 2019-nCoV [facility] RNA XXX ERIC+probe- Imp This lab was ordered by [facility] and reported by [employer] ID Date Data Source [id number] 11/18/2019 11:38:00 PM EDT [facility] Name Value Range Interpretation Description Data Sup porting Code Source(s) Document(s ) SARS [facility] CORONAVIRUS 2 RNA This lab was ordered by [facility] and reported by [facility]. ID Date Data Source [id number] 10/27/2019 02:30:00 PM EDT [facility] Name Value Range Interpretation Description Data Sup porting Code Source(s) Document(s ) SARS [facility] CORONAVIRUS 2 RNA This lab was ordered by [facility] and reported by [facility]. Procedure
[2020-02-08 11:21] LABS: HEMATOCRIT 27.1 % (35.4-49); HEMOGLOBIN 8.9 GM/dL (11.7-16.9); MCH 30.4 pg (25.7-33.7); MEAN CELL VOLUME 92.1 fl (80-96); PLATELET COUNT 129 K/MM3 (134-434); RBC 2.94 M/mm3 (4.00-5.60); RDW 20.1 % (11.9-15.9); WHITE BLOOD COUNT 5.9 K/mm3 (4.0-10.0)
[2020-02-08] MEDS ORDERED: ERTAPENEM SODIUM 0.5 GM in SODIUM CHLORIDE 50 ML IVPB ONE (11:30)
[2020-02-08 11:44] VITALS: TEMP 97.6
[2020-02-08 11:54] LABS: ALBUMIN 2.4 g/dl (3.4-5.0); BILIRUBIN,TOTAL 0.3 mg/dL (0.2-1); BLOOD UREA NITROGEN 34.1 mg/dL (7-18); CREATININE 1.8 mg/dL (0.55-1.3); PHOSPHOROUS 3.2 mg/dL (2.5-4.9); POTASSIUM 3.1 mmol/L (3.5-5.1); TOT PROT 6.7 g/dl (6.4-8.2)
[2020-02-08] MEDS ORDERED: VANCOMYCIN 500 MG in DEXTROSE 5%-WATER 100 ML IVPB ONE (12:00)
[2020-02-08 12:54] LABS: URIC ACID 13.5 mg/dL (2.6-7.2)
[2020-02-08 14:16] VITALS: BP 155/79; PULSE 108
== END 2020-02-08 15:42 | disposition home or self-care (01) ==
LOC: JINFUSION 06:51 → J7W 10:47 → JINFUSION 15:42
PROVIDERS: ATTEND Internal Medicine
DX: M86.171 Other acute osteomyelitis, right ankle and foot (principal); L03.115 Cellulitis of right lower limb
CPT/HCPCS: 36415; 80053; 82728; 83540; 83550; 84100; 84550; 85027; 96365; 96366; 96367; G0480

== ENCOUNTER 2020-02-09 06:02 | Day surgery (SDC) | payer OTHER, MEDICARE ==
--- OUTSIDE RECORDS SUMMARY | 2020-02-09 06:07 | XMS ---
:1930 Author Organization [facility] Support Name Relationship Address Phone RE, RETIRED Unavailable Unavailable Unavailable RE Unavailable Unavailable Unavailable COMFORT ESCOTO [address] [place] [address] COMFORT ESCOTO Spouse [address] [place] [address] Re-disclosure Warning The records that you are [...] is protected by Article 27-F of the [facility] Public Health law. If you continue you may haveaccess to information: Regarding HIV / AIDS; Provided by facilities licensed or operated by the [facility] Office of Mental Health; or Provided by the [facility] Office for People With Developmental Disabilities. If such information is present, then the following [facility] mandated warning applies: This information has been [...] law may result in a fine or fci sentence or both. A general authorization for the release of medical or other information is NOT sufficient authorization for further disclosure. Insurance Providers Payer name Policy type Policy ID Covered Covered democrat's Policy P luis / Coverage democrat ID relationship to Betts Inf ormation type betts MEDICARE [id number] SP [id number] V49 AAR HEALTH [id number] SP [id number] CARE OPTIONS MEDICARE [id number] SP [id number] V49 AAR HEALTH [id number] SP [id number] CARE OPTIONS MEDICARE [id number] SP [id number] V49 MEDICARE [id number] SP [id number] V49 [place] [id number] SP [id number] COMPLETE Results ID Date Data Source [id number] 01/16/2020 05:10:00 PM EDT [facility] Name Value Range Interpretation Description Data Sup porting Code Source(s) Document(s ) SARS [facility] coronavirus 2 RNA This lab was ordered by [facility] and reported by [facility]. ID Date Data Source [id number] 11/25/2019 12:00:00 AM EDT [facility] Name Value Range Interpretation Code Description Data Nessa rce(s) Supporting Document(s ) 2019-nCoV [facility] RNA XXX ERIC+probe- Imp This lab was ordered by [facility] and reported by [employer] ID Date Data Source [id number] 11/18/2019 11:38:00 PM EDT [facility] Name Value Range Interpretation Description Data Sup porting Code Source(s) Document(s ) SARS [facility] CORONAVIRUS 2 RNA This lab was ordered by [facility] and reported by [facility]. ID Date Data Source [id number] 10/27/2019 02:30:00 PM EDT [facility] Name Value Range Interpretation Description Data Sup porting Code Source(s) Document(s ) SARS [facility] CORONAVIRUS 2 RNA This lab was ordered by [facility] and reported by [facility]. Procedure
[2020-02-09] MEDS ORDERED: ERTAPENEM SODIUM 0.5 GM in SODIUM CHLORIDE 50 ML IVPB ONE (11:00)
[2020-02-09 11:16] VITALS: TEMP 98.2
[2020-02-09 11:50] VITALS: BP 160/65; PULSE 64
== END 2020-02-09 12:00 | disposition home or self-care (01) ==
LOC: JINFUSION 06:02 → J7W 10:49 → JINFUSION 12:00
PROVIDERS: ATTEND Internal Medicine
DX: M86.171 Other acute osteomyelitis, right ankle and foot (principal); L03.115 Cellulitis of right lower limb
CPT/HCPCS: 96365

== ENCOUNTER 2020-02-10 06:09 | Day surgery (SDC) | payer OTHER, MEDICARE ==
--- OUTSIDE RECORDS SUMMARY | 2020-02-10 06:19 | XMS ---
:1930 Author Organization [facility] Support Name Relationship Address Phone RE, RETIRED Unavailable Unavailable Unavailable RE Unavailable Unavailable Unavailable COMFORT ESCOTO [address] [place] [address] COMFORT ESCOTO Spouse [address] [place] [address] Re-disclosure Warning The records that you are [...] is protected by Article 27-F of the [facility] Public Health law. If you continue you may haveaccess to information: Regarding HIV / AIDS; Provided by facilities licensed or operated by the [facility] Office of Mental Health; or Provided by the [facility] Office for People With Developmental Disabilities. If such information is present, then the following [facility] mandated warning applies: This information has [...] law may result in a fine or senior living sentence or both. A general authorization for the release of medical or other information is NOT sufficient authorization for further disclosure. Insurance Providers Payer name Policy type Policy ID Covered Covered republican's Policy P luis / Coverage republican ID relationship to Betts Inf ormation type betts MEDICARE [id number] SP [id number] V49 [facility] [id number] SP [id number] CARE OPTIONS MEDICARE [id number] SP [id number] V49 [facility]AR HEALTH [id number] SP [id number] CARE OPTIONS MEDICARE [id number] SP [id number] V49 MEDICARE [id number] SP [id number] V49 [place] D[place] [id number] SP [id number] COMPLETE Results ID Date Data Source [id number] 01/16/2020 05:10:00 PM EDT [facility] Name Value Range Interpretation Description Data Sup porting Code Source(s) Document(s ) SARS [facility] coronavirus 2 RNA This lab was ordered by [facility] and reported by [facility]. ID Date Data Source [id number] 11/25/2019 12:00:00 AM EDT [facility] Name Value Range Interpretation Code Description Data Nessa rce(s) Supporting Document(s ) 2019-nCoV [facility] RNA XXX ERIC+probe- Imp This lab was ordered by [facility] and reported by [employer] ID Date Data Source [id number] 11/18/2019 11:38:00 PM EDT [facility] Name Value Range Interpretation Description Data Sup porting Code Source(s) Document(s ) SARS [facility] CORONAVIRUS 2 RNA This lab was ordered by [facility] and reported by [facility]. ID Date Data Source [id number] 10/27/2019 02:30:00 PM EDT [facility] Name Value Range Interpretation Description Data Sup porting Code Source(s) Document(s ) SARS [facility] CORONAVIRUS 2 RNA This lab was ordered by [facility] and reported by [facility]. Procedure
[2020-02-10] MEDS ORDERED: ERTAPENEM SODIUM 0.5 GM in SODIUM CHLORIDE 50 ML IVPB ONE (11:30)
[2020-02-10] MEDS ORDERED: VANCOMYCIN 500 MG in DEXTROSE 5%-WATER 100 ML IVPB ONE (12:00)
[2020-02-10 15:03] VITALS: BP 139/71; PULSE 88; TEMP 98
== END 2020-02-10 15:36 | disposition home or self-care (01) ==
LOC: JINFUSION 06:09 → J7W 10:55 → JINFUSION 15:36
PROVIDERS: ATTEND Internal Medicine
DX: M86.171 Other acute osteomyelitis, right ankle and foot (principal); L03.115 Cellulitis of right lower limb
CPT/HCPCS: 96365; 96366; 96367

== ENCOUNTER 2020-02-11 10:56 | Day surgery (SDC) | payer OTHER, MEDICARE ==
--- OUTSIDE RECORDS SUMMARY | 2020-02-11 11:07 | XMS ---
:1930 Author Organization [facility] Support Name Relationship Address Phone RE, RETIRED Unavailable Unavailable Unavailable RE Unavailable Unavailable Unavailable COMFORT ESCOTO [address] [place] [address] COMFORT ESCOTO Spouse [address] [place] [address] Re-disclosure Warning The records that you are [...] is protected by Article 27-F of the [facility] Public Health law. If you continue you may haveaccess to information: Regarding HIV / AIDS; Provided by facilities licensed or operated by the [facility] Office of Mental Health; or Provided by the [facility] Office for People With Developmental Disabilities. If such information is present, then the following [facility] mandated warning applies: This information [...] law may result in a fine or halfway sentence or both. A general authorization for the release of medical or other information is NOT sufficient authorization for further disclosure. Insurance Providers Payer name Policy type Policy ID Covered Covered libertarian's Policy P luis / Coverage libertarian ID relationship to Betts Inf ormation type betts MEDICARE [id number] SP [id number] V49 [facility] [id number] SP [id number] CARE OPTIONS MEDICARE [id number] SP [id number] V49 [facility] [id number] SP [id number] CARE OPTIONS MEDICARE [id number] SP [id number] V49 MEDICARE [id number] SP [id number] V49 [place] [id number] SP [id number] COMPLETE Results ID Date Data Source [id number] 01/16/2020 05:10:00 PM EDT [facility] Name Value Range Interpretation Description Data Sup porting Code Source(s) Document(s ) SARS [facility] coronavirus 2 RNA This lab was ordered by [facility] and reported by [facility]. ID Date Data Source [id number] 11/25/2019 12:00:00 AM EDT [facility] Name Value Range Interpretation Code Description Data Nessa rce(s) Supporting Document(s ) 2019-nCoV [facility] RNA XXX ERIC+probe- Imp This lab was ordered by [facility] and reported by [employer]. ID Date Data Source [id number] 11/18/2019 11:38:00 PM EDT [facility] Name Value Range Interpretation Description Data Sup porting Code Source(s) Document(s ) SARS [facility] CORONAVIRUS 2 RNA This lab was ordered by [facility] and reported by [facility]. ID Date Data Source [id number] 10/27/2019 02:30:00 PM EDT [facility] Name Value Range Interpretation Description Data Sup porting Code Source(s) Document(s ) SARS [facility] CORONAVIRUS 2 RNA This lab was ordered by [facility] and reported by [facility]. Procedure
[2020-02-11] MEDS ORDERED: SODIUM CHLORIDE 50 ML IVPB ONE (11:13)
[2020-02-11] MEDS ORDERED: ERTAPENEM SODIUM 1 GM VIAL ONE (11:13)
[2020-02-11] MEDS ORDERED: ERTAPENEM SODIUM 0.5 GM in SODIUM CHLORIDE 50 ML IVPB ONE (11:15)
[2020-02-11] MEDS ORDERED: VANCOMYCIN 500 MG in DEXTROSE 5%-WATER - 100 ML IVPB ONE (11:15)
[2020-02-11 11:23] VITALS: BP 141/62; PULSE 64; TEMP 99
== END 2020-02-11 13:00 | disposition home or self-care (01) ==
LOC: JINFUSION 10:56 → J7W 10:56 → JINFUSION 13:00
PROVIDERS: ATTEND Internal Medicine
DX: M86.171 Other acute osteomyelitis, right ankle and foot (principal); L03.115 Cellulitis of right lower limb
CPT/HCPCS: 96365; 96366; 96367

== ENCOUNTER 2020-02-12 10:48 | Day surgery (SDC) | payer OTHER, MEDICARE ==
--- OUTSIDE RECORDS SUMMARY | 2020-02-12 10:51 | XMS ---
:1930 Author Organization [facility] Support Name Relationship Address Phone RE, RETIRED Unavailable Unavailable Unavailable RE Unavailable Unavailable Unavailable COMFORT ESCOTO [address] [place] [address] COMFORT ESCOTO Spouse [address] [place] [address] Re-disclosure Warning The records that you are [...] is protected by Article 27-F of the [facility] Public Health law. If you continue you may haveaccess to information: Regarding HIV / AIDS; Provided by facilities licensed or operated by the [facility] Office of Mental Health; or Provided by the [facility] Office for People With Developmental Disabilities. If such information is present, then the following [facility] mandated warning applies: This information has [...] law may result in a fine or alf sentence or both. A general authorization for the release of medical or other information is NOT sufficient authorization for further disclosure. Insurance Providers Payer name Policy type Policy ID Covered Covered constitution party's Policy P luis / Coverage constitution party ID relationship to Betts Inf ormation type betts MEDICARE [id number] SP [id number] V49 AAR HEALTH [id number] SP [id number] CARE OPTIONS MEDICARE [id number] SP [id number] V49 AAR HEALTH [id number] SP [id number] CARE OPTIONS MEDICARE [id number] SP [id number] V49 MEDICARE [id number] SP [id number] V49 [place] [place] [id number] SP [id number] COMPLETE Results ID Date Data Source [id number] 01/16/2020 05:10:00 PM EDT [facility] Name Value Range Interpretation Description Data Sup porting Code Source(s) Document(s ) SARS [facility] coronavirus 2 RNA This lab was ordered by [facility] and reported by [facility]. ID Date Data Source [id number] 11/25/2019 12:00:00 AM EDT [facility] Name Value Range Interpretation Code Description Data Nessa rce(s) Supporting Document(s ) 2019-nCoV [facility] RNA XXX ERIC+probe- Imp This lab was ordered by [facility] and reported by [employer]. ID Date Data Source [id number] 11/18/2019 11:38:00 PM EDT [facility] Name Value Range Interpretation Description Data Sup porting Code Source(s) Document(s ) SARS [facility] CORONAVIRUS 2 RNA This lab was ordered by [facility] and reported by [facility]. ID Date Data Source [id number] 10/27/2019 02:30:00 PM EDT [facility] Name Value Range Interpretation Description Data Sup porting Code Source(s) Document(s ) SARS [facility] CORONAVIRUS 2 RNA This lab was ordered by [facility] and reported by [facility]. Procedure
[2020-02-12] MEDS ORDERED: ERTAPENEM SODIUM 0.5 GM in SODIUM CHLORIDE 50 ML IVPB ONE (11:15)
[2020-02-12] MEDS ORDERED: VANCOMYCIN 500 MG in DEXTROSE 5%-WATER 100 ML IVPB ONE (11:15)
[2020-02-12 12:13] VITALS: TEMP 97.9
[2020-02-12 12:14] VITALS: BP 114/61; PULSE 58
== END 2020-02-12 13:15 | disposition home or self-care (01) ==
LOC: JINFUSION 10:48 → J7W 10:48 → JINFUSION 13:15
PROVIDERS: ATTEND Internal Medicine
DX: M86.171 Other acute osteomyelitis, right ankle and foot (principal); L03.115 Cellulitis of right lower limb
CPT/HCPCS: 96365; 96367

== ENCOUNTER 2020-02-13 06:15 | Day surgery (SDC) | payer OTHER, MEDICARE ==
--- OUTSIDE RECORDS SUMMARY | 2020-02-13 06:19 | XMS ---
:1930 Author Organization [facility] Support Name Relationship Address Phone RE, RETIRED Unavailable Unavailable Unavailable RE Unavailable Unavailable Unavailable COMFORT ESCOTO [address] [place] [address] COMFORT ESCOTO Spouse [address] [place] [place] [address] Re-disclosure Warning The records that you are [...] is protected by Article 27-F of the [facility] Public Health law. If you continue you may haveaccess to information: Regarding HIV / AIDS; Provided by facilities licensed or operated by the [facility] Office of Mental Health; or Provided by the [facility] Office for People With Developmental Disabilities. If such information is present, then the following [facility] mandated warning applies: This information [...] may result in a fine or senior care sentence or both. A general authorization for the release of medical or other information is NOT sufficient authorization for further disclosure. Insurance Providers Payer name Policy type Policy ID Covered Covered constitution party's Policy P luis / Coverage constitution party ID relationship to Betts Inf ormation type betts MEDICARE [id number] SP [id number] V49 [facility] [id number] SP [id number] CARE OPTIONS MEDICARE [id number] SP [id number] V49 [facility]ALTH [id number] SP [id number] CARE OPTIONS MEDICARE [id number] SP [id number] V49 MEDICARE [id number] SP [id number] V49 [place] [place] [id number] SP [id number] COMPLETE Results ID Date Data Source [id number] 01/16/2020 05:10:00 PM EDT [facility] Name Value Range Interpretation Description Data Sup porting Code Source(s) Document(s ) SARS [facility] coronavirus 2 RNA This lab was ordered by [facility] and reported by [facility]. ID Date Data Source [id number] 11/25/2019 12:00:00 AM EDT [facility] Name Value Range Interpretation Code Description Data Nessa rce(s) Supporting Document(s ) 2019-nCoV [facility] RNA XXX ERIC+probe- Imp This lab was ordered by [facility] and reported by [employer]. ID Date Data Source [id number] 11/18/2019 11:38:00 PM EDT [facility] Name Value Range Interpretation Description Data Sup porting Code Source(s) Document(s ) SARS [facility] CORONAVIRUS 2 RNA This lab was ordered by [facility] and reported by [facility]. ID Date Data Source [id number] 10/27/2019 02:30:00 PM EDT [facility] Name Value Range Interpretation Description Data Sup porting Code Source(s) Document(s ) SARS [facility] CORONAVIRUS 2 RNA This lab was ordered by [facility] and reported by [facility]. Procedure
[2020-02-13] MEDS ORDERED: ERTAPENEM SODIUM 0.5 GM in SODIUM CHLORIDE 50 ML IVPB ONE (13:00)
[2020-02-13] MEDS ORDERED: VANCOMYCIN 500 MG in DEXTROSE 5%-WATER - 100 ML IVPB ONE (13:00)
[2020-02-13 13:36] VITALS: BP 147/80; PULSE 85; TEMP 98.1
== END 2020-02-13 15:14 | disposition home or self-care (01) ==
LOC: JINFUSION 06:15 → J7W 11:26 → JINFUSION 15:14
PROVIDERS: ATTEND Internal Medicine
DX: M86.171 Other acute osteomyelitis, right ankle and foot (principal); L03.115 Cellulitis of right lower limb
CPT/HCPCS: 96365

== ENCOUNTER 2020-02-14 05:59 | Day surgery (SDC) | payer OTHER, MEDICARE ==
--- OUTSIDE RECORDS SUMMARY | 2020-02-14 06:03 | XMS ---
:1930 Author Organization [facility] Support Name Relationship Address Phone RE, RETIRED Unavailable Unavailable Unavailable RE Unavailable Unavailable Unavailable COMFORT ESCOTO [address] [place] [address] COMFORT ESCOTO Spouse [address] [place] [place] [address] Re-disclosure Warning The records that you are [...] is protected by Article 27-F of the [facility] Public Health law. If you continue you may haveaccess to information: Regarding HIV / AIDS; Provided by facilities licensed or operated by the [facility] Office of Mental Health; or Provided by the [facility] Office for People With Developmental Disabilities. If such information is present, then the following [facility] mandated warning applies: This information has [...] relationship to Betts Inf ormation type betts AAR HEALTH [id number] CARE OPTIONS MEDICARE [id number] SP [id number] V49 MEDICARE [id number] SP [id number] V49 MEDICARE [id number] SP [id number] V49 AAR [facility] [id number] CARE OPTIONS MEDICARE [id number] SP [id number] V49 [place] [place] [id number] COMPLETE Results ID Date Data Source [id number] 01/16/2020 05:10:00 PM EDT [facility] Name Value Range Interpretation Description Data Sup porting Code Source(s) Document(s ) SARS [facility] coronavirus 2 RNA This lab was ordered by [facility] and reported by [facility]. ID Date Data Source [id number] 11/25/2019 12:00:00 AM EDT [facility] Name Value Range Interpretation Code Description Data Nessa rce(s) Supporting Document(s ) 2019-nCoV [facility] RNA XXX ERIC+probe- Imp This lab was ordered by [facility] and reported by [employer]. ID Date Data Source [id number] 11/18/2019 11:38:00 PM EDT [facility] Name Value Range Interpretation Description Data Sup porting Code Source(s) Document(s ) SARS [facility] CORONAVIRUS 2 RNA This lab was ordered by [facility] and reported by [facility]. ID Date Data Source [id number] 10/27/2019 02:30:00 PM EDT [facility] Name Value Range Interpretation Description Data Sup porting Code Source(s) Document(s ) SARS [facility] CORONAVIRUS 2 RNA This lab was ordered by [facility] and reported by [facility]. Procedure
[2020-02-14] MEDS ORDERED: ERTAPENEM SODIUM 0.5 GM in SODIUM CHLORIDE 50 ML IVPB ONE (11:00)
[2020-02-14] MEDS ORDERED: VANCOMYCIN 500 MG in DEXTROSE 5%-WATER - 100 ML IVPB ONE (11:30)
[2020-02-14 13:18] VITALS: BP 136/75; PULSE 76; TEMP 97.9
== END 2020-02-14 14:37 | disposition home or self-care (01) ==
LOC: JINFUSION 05:59 → J7W 10:32 → JINFUSION 14:37
PROVIDERS: ATTEND Internal Medicine
DX: M86.171 Other acute osteomyelitis, right ankle and foot (principal); L03.115 Cellulitis of right lower limb
CPT/HCPCS: 96365; 96366; 96367

== ENCOUNTER 2020-02-15 06:26 | Day surgery (SDC) | payer OTHER, MEDICARE ==
--- OUTSIDE RECORDS SUMMARY | 2020-02-15 06:29 | XMS ---
:1930 Author Organization [facility] Support Name Relationship Address Phone RE, RETIRED Unavailable Unavailable Unavailable RE Unavailable Unavailable Unavailable COMFORT ESCOTO [address] [place] [address] COMFORT ESCOTO Spouse [address] [place] [address] Re-disclosure Warning The records that you are [...] is protected by Article 27-F of the [facility] Public Health law. If you continue you may haveaccess to information: Regarding HIV / AIDS; Provided by facilities licensed or operated by the [facility] Office of Mental Health; or Provided by the [facility] Office for People With Developmental Disabilities. If such information is present, then the following [facility] mandated warning applies: This information [...] law may result in a fine or care home sentence or both. A general authorization for the release of medical or other information is NOT sufficient authorization for further disclosure. Insurance Providers Payer name Policy type Policy ID Covered Covered alliance party's Policy P luis / Coverage alliance party ID relationship to Betts Inf ormation type betts MEDICARE [id number] SP [id number] V49 [facility] [id number] SP [id number] CARE OPTIONS MEDICARE [id number] SP [id number] V49 MEDICARE [id number] SP [id number] V49 AAR HEALTH [id number] CARE OPTIONS MEDICARE [id number] SP [id number] V49 [place] [place] [id number] SP [id number] COMPLETE Results ID Date Data Source [id number] 01/16/2020 05:10:00 PM EDT [facility] Name Value Range Interpretation Description Data Sup porting Code Source(s) Document(s ) SARS [facility] coronavirus 2 RNA This lab was ordered by [facility] and reported by [facility]. ID Date Data Source [id number] 11/25/2019 12:00:00 AM EDT [facility] Name Value Range Interpretation Code Description Data Nessa rce(s) Supporting Document(s ) 2019-nCoV [facility] RNA XXX ERIC+probe- Imp This lab was ordered by [facility] and reported by [employer]. ID Date Data Source [id number] 11/18/2019 11:38:00 PM EDT [facility] Name Value Range Interpretation Description Data Sup porting Code Source(s) Document(s ) SARS [facility] CORONAVIRUS 2 RNA This lab was ordered by [facility] and reported by [facility]. ID Date Data Source [id number] 10/27/2019 02:30:00 PM EDT [facility] Name Value Range Interpretation Description Data Sup porting Code Source(s) Document(s ) SARS [facility] CORONAVIRUS 2 RNA This lab was ordered by [facility] and reported by [facility]. Procedure
[2020-02-15 11:39] LABS: HEMATOCRIT 26.2 % (35.4-49); HEMOGLOBIN 8.4 GM/dL (11.7-16.9); MCH 29.6 pg (25.7-33.7); MCHC 32.1 g/dl (32.0-35.9); MEAN CELL VOLUME 92.1 fl (80-96); MEAN PLT VOLUME 8.2 fl (7.5-11.1); PLATELET COUNT 122 K/MM3 (134-434); RBC 2.84 M/mm3 (4.00-5.60); RDW 20.1 % (11.9-15.9); WHITE BLOOD COUNT 5.6 K/mm3 (4.0-10.0)
[2020-02-15] MEDS ORDERED: ERTAPENEM SODIUM 0.5 GM in SODIUM CHLORIDE 50 ML IVPB ONE (12:00)
[2020-02-15 12:09] LABS: BLOOD UREA NITROGEN 49.5 mg/dL (7-18); POTASSIUM 4.1 mmol/L (3.5-5.1)
[2020-02-15 12:23] VITALS: TEMP 98.5
[2020-02-15] MEDS ORDERED: VANCOMYCIN 500 MG in DEXTROSE 5%-WATER 100 ML IVPB ONE (12:30)
[2020-02-15 12:32] VITALS: BP 140/74; PULSE 68
[2020-02-15 12:39] LABS: ERYTHROCYTE SEDIMENTATION RATE 62 mm/hr (0-20)
== END 2020-02-15 14:46 | disposition home or self-care (01) ==
LOC: JINFUSION 06:26 → J7W 11:22 → JINFUSION 14:46
PROVIDERS: ATTEND Internal Medicine
DX: M86.171 Other acute osteomyelitis, right ankle and foot (principal); L03.115 Cellulitis of right lower limb
CPT/HCPCS: 36415; 80048; 85027; 85651; 86140; 96365; G0480

== ENCOUNTER 2020-02-16 06:08 | Day surgery (SDC) | payer OTHER, MEDICARE ==
--- OUTSIDE RECORDS SUMMARY | 2020-02-16 07:40 | XMS ---
:1930 Author Organization [facility] Support Name Relationship Address Phone RE, RETIRED Unavailable Unavailable Unavailable RE Unavailable Unavailable Unavailable COMFORT ESCOTO [address] [place] [address] COMFORT ESCOTO Spouse [address] [place] [place] [address] Re-disclosure Warning The records that you are [...] is protected by Article 27-F of the [facility] Public Health law. If you continue you may haveaccess to information: Regarding HIV / AIDS; Provided by facilities licensed or operated by the [facility] Office of Mental Health; or Provided by the [facility] Office for People With Developmental Disabilities. If such information is present, then the following [facility] mandated warning applies: This information [...] law may result in a fine or fpc sentence or both. A general authorization for the release of medical or other information is NOT sufficient authorization for further disclosure. Insurance Providers Payer name Policy type Policy ID Covered Covered alliance party's Policy P luis / Coverage alliance party ID relationship to Betts Inf ormation type betts AAR HEALTH [id number] CARE OPTIONS MEDICARE [id number] SP [id number] V49 MEDICARE [id number] SP [id number] V49 MEDICARE [id number] SP [id number] V49 [facility] [id number] CARE OPTIONS MEDICARE [id number] SP [id number] V49 [place] [place] [id number] COMPLETE Results ID Date Data Source [id number] 01/16/2020 05:10:00 PM EDT [facility] Name Value Range Interpretation Description Data Sup porting Code Source(s) Document(s ) SARS [facility] coronavirus 2 RNA This lab was ordered by [facility] and reported by [facility]. ID Date Data Source [id number] 11/25/2019 12:00:00 AM EDT [facility] Name Value Range Interpretation Code Description Data Nessa rce(s) Supporting Document(s ) 2019-nCoV [facility] RNA XXX ERIC+probe- Imp This lab was ordered by [facility] and reported by [employer]. ID Date Data Source [id number] 11/18/2019 11:38:00 PM EDT [facility] Name Value Range Interpretation Description Data Sup porting Code Source(s) Document(s ) SARS [facility] CORONAVIRUS 2 RNA This lab was ordered by [facility] and reported by [facility]. ID Date Data Source [id number] 10/27/2019 02:30:00 PM EDT [facility] Name Value Range Interpretation Description Data Sup porting Code Source(s) Document(s ) SARS [facility] CORONAVIRUS 2 RNA This lab was ordered by [facility] and reported by [facility]. Procedure
[2020-02-16] MEDS ORDERED: ERTAPENEM SODIUM 0.5 GM in SODIUM CHLORIDE 50 ML IVPB ONE (11:00)
[2020-02-16] MEDS ORDERED: VANCOMYCIN 500 MG in DEXTROSE 5%-WATER - 100 ML IVPB ONE (11:00)
[2020-02-16 13:26] VITALS: BP 154/65; PULSE 75; TEMP 98.4
== END 2020-02-16 15:13 | disposition home or self-care (01) ==
LOC: JINFUSION 06:08 → J7W 10:47 → JINFUSION 15:13
PROVIDERS: ATTEND Internal Medicine
DX: M86.171 Other acute osteomyelitis, right ankle and foot (principal); L03.115 Cellulitis of right lower limb
CPT/HCPCS: 96365; G0480

== ENCOUNTER 2020-02-17 06:39 | Day surgery (SDC) | payer OTHER, MEDICARE ==
--- OUTSIDE RECORDS SUMMARY | 2020-02-17 06:43 | XMS ---
:1930 Author Organization [facility] Support Name Relationship Address Phone RE, RETIRED Unavailable Unavailable Unavailable RE Unavailable Unavailable Unavailable COMFORT ESCOTO [address] [place] [address] COMFORT ESCOTO Spouse [address] [place] [address] Re-disclosure Warning The records that you are [...] is protected by Article 27-F of the [facility] Public Health law. If you continue you may haveaccess to information: Regarding HIV / AIDS; Provided by facilities licensed or operated by the [facility] Office of Mental Health; or Provided by the [facility] Office for People With Developmental Disabilities. If such information is present, then the following [facility] mandated warning applies: This information has [...] law may result in a fine or chcf sentence or both. A general authorization for the release of medical or other information is NOT sufficient authorization for further disclosure. Insurance Providers Payer name Policy type Policy ID Covered Covered libertarian's Policy P luis / Coverage libertarian ID relationship to Betts Inf ormation type betts MEDICARE [id number] SP [id number] V49 [facility] [id number] SP [id number] CARE OPTIONS MEDICARE [id number] SP [id number] V49 MEDICARE [id number] SP [id number] V49 [facility] [id number] CARE OPTIONS MEDICARE [id number] SP [id number] V49 [place] [place] [id number] SP [id number] COMPLETE Results ID Date Data Source [id number] 01/16/2020 05:10:00 PM EDT [facility] Name Value Range Interpretation Description Data Sup porting Code Source(s) Document(s ) SARS [facility] coronavirus 2 RNA This lab was ordered by [facility] and reported by [facility]. ID Date Data Source [id number] 11/25/2019 12:00:00 AM EDT [facility] Name Value Range Interpretation Code Description Data Nessa rce(s) Supporting Document(s ) 2019-nCoV [facility] RNA XXX ERIC+probe- Imp This lab was ordered by [facility] and reported by [employer]. ID Date Data Source [id number] 11/18/2019 11:38:00 PM EDT [facility] Name Value Range Interpretation Description Data Sup porting Code Source(s) Document(s ) SARS [facility] CORONAVIRUS 2 RNA This lab was ordered by [facility] and reported by [facility]. ID Date Data Source [id number] 10/27/2019 02:30:00 PM EDT [facility] Name Value Range Interpretation Description Data Sup porting Code Source(s) Document(s ) SARS [facility] CORONAVIRUS 2 RNA This lab was ordered by [facility] and reported by [facility]. Procedure
[2020-02-17] MEDS ORDERED: ERTAPENEM SODIUM 0.5 GM in SODIUM CHLORIDE 50 ML IVPB ONE (11:30)
[2020-02-17] MEDS ORDERED: VANCOMYCIN 500 MG in DEXTROSE 5%-WATER 100 ML IVPB ONE (12:30)
[2020-02-17 14:23] VITALS: BP 136/85; PULSE 88; TEMP 98.4
== END 2020-02-17 15:59 | disposition home or self-care (01) ==
LOC: JINFUSION 06:39 → J7W 11:01 → JINFUSION 15:59
PROVIDERS: ATTEND Internal Medicine
DX: M86.171 Other acute osteomyelitis, right ankle and foot (principal); L03.115 Cellulitis of right lower limb
CPT/HCPCS: 96365; 96366; 96367; G0480

== ENCOUNTER 2020-02-18 11:02 | Day surgery (SDC) | payer OTHER, MEDICARE ==
--- OUTSIDE RECORDS SUMMARY | 2020-02-18 11:08 | XMS ---
:1930 Author Organization [facility] Support Name Relationship Address Phone RE, RETIRED Unavailable Unavailable Unavailable RE Unavailable Unavailable Unavailable COMFORT ESCOTO [address] [place] [address] COMFORT ESCOTO Spouse [address] [place] [place] [address] Re-disclosure Warning The records that you are [...] is protected by Article 27-F of the [facility] Public Health law. If you continue you may haveaccess to information: Regarding HIV / AIDS; Provided by facilities licensed or operated by the [facility] Office of Mental Health; or Provided by the [facility] Office for People With Developmental Disabilities. If such information is present, then the following [facility] mandated warning applies: This information has [...] law may result in a fine or custodial sentence or both. A general authorization for the release of medical or other information is NOT sufficient authorization for further disclosure. Insurance Providers Payer name Policy type Policy ID Covered Covered alliance party's Policy P luis / Coverage alliance party ID relationship to Betts Inf ormation type betts MEDICARE [id number] SP [id number] V49 [facility] [id number] SP [id number] CARE OPTIONS MEDICARE [id number] SP [id number] V49 MEDICARE [id number] SP [id number] V49 [facility] [id number] CARE OPTIONS MEDICARE [id number] SP [id number] V49 [facility] [place] [id number] SP [id number] COMPLETE Results ID Date Data Source [id number] 01/16/2020 05:10:00 PM EDT [facility] Name Value Range Interpretation Description Data Sup porting Code Source(s) Document(s ) SARS [facility] coronavirus 2 RNA This lab was ordered by [facility] and reported by [facility]. ID Date Data Source [id number] 11/25/2019 12:00:00 AM EDT [facility] Name Value Range Interpretation Code Description Data Nessa rce(s) Supporting Document(s ) 2019-nCoV [facility] RNA XXX ERIC+probe- Imp This lab was ordered by [facility] and reported by [employer]. ID Date Data Source [id number] 11/18/2019 11:38:00 PM EDT [facility] Name Value Range Interpretation Description Data Sup porting Code Source(s) Document(s ) SARS [facility] CORONAVIRUS 2 RNA This lab was ordered by [facility] and reported by [facility]. ID Date Data Source [id number] 10/27/2019 02:30:00 PM EDT [facility] Name Value Range Interpretation Description Data Sup porting Code Source(s) Document(s ) SARS [facility] CORONAVIRUS 2 RNA This lab was ordered by [facility] and reported by [facility]. Procedure
[2020-02-18 11:14] VITALS: BP 148/95; PULSE 70; TEMP 98.5
[2020-02-18] MEDS ORDERED: ERTAPENEM SODIUM 0.5 GM in SODIUM CHLORIDE 50 ML IVPB ONE (11:30)
== END 2020-02-18 12:30 | disposition home or self-care (01) ==
LOC: JINFUSION 11:02 → J7W 11:03 → JINFUSION 12:30
PROVIDERS: ATTEND Internal Medicine
DX: M86.171 Other acute osteomyelitis, right ankle and foot (principal); L03.115 Cellulitis of right lower limb
CPT/HCPCS: 96365

== ENCOUNTER 2020-02-19 11:13 | Day surgery (SDC) | payer OTHER, MEDICARE ==
[2020-02-19] MEDS ORDERED: ERTAPENEM SODIUM 0.5 GM in SODIUM CHLORIDE 50 ML IVPB ONE (11:30)
--- OUTSIDE RECORDS SUMMARY | 2020-02-19 11:52 | XMS ---
:1930 Author Organization [facility] Support Name Relationship Address Phone RE, RETIRED Unavailable Unavailable Unavailable RE Unavailable Unavailable Unavailable COMFORT ESCOTO [address] [place] [address] COMFORT ESCOTO Spouse [address] [place] [address] Re-disclosure Warning The records that you are [...] is protected by Article 27-F of the [facility] Public Health law. If you continue you may haveaccess to information: Regarding HIV / AIDS; Provided by facilities licensed or operated by the [facility] Office of Mental Health; or Provided by the [facility] Office for People With Developmental Disabilities. If such information is present, then the following [facility] mandated warning applies: This information has [...] to Betts Inf ormation type betts MEDICARE [id number] SP [id number] V49 [facility] [id number] SP [id number] CARE OPTIONS MEDICARE [id number] SP [id number] V49 MEDICARE [id number] SP [id number] V49 AAR HE[facility] [id number] CARE OPTIONS MEDICARE [id number] SP [id number] V49 [place] [place] [id number] SP [id number] COMPLETE Results ID Date Data Source [id number] 01/16/2020 05:10:00 PM EDT [facility] Name Value Range Interpretation Description Data Sup porting Code Source(s) Document(s ) SARS [facility] coronavirus 2 RNA This lab was ordered by [facility] and reported by [facility]. ID Date Data Source [id number] 11/25/2019 12:00:00 AM EDT [facility] Name Value Range Interpretation Code Description Data Nessa rce(s) Supporting Document(s ) 2019-nCoV [facility] RNA XXX ERIC+probe- Imp This lab was ordered by [facility] and reported by [employer]. ID Date Data Source [id number] 11/18/2019 11:38:00 PM EDT [facility] Name Value Range Interpretation Description Data Sup porting Code Source(s) Document(s ) SARS [facility] CORONAVIRUS 2 RNA This lab was ordered by [facility] and reported by [facility]. ID Date Data Source [id number] 10/27/2019 02:30:00 PM EDT [facility] Name Value Range Interpretation Description Data Sup porting Code Source(s) Document(s ) SARS [facility] CORONAVIRUS 2 RNA This lab was ordered by [facility] and reported by [facility]. Procedure
[2020-02-19 12:14] VITALS: BP 150/71; PULSE 73; TEMP 97.9
== END 2020-02-19 12:15 | disposition home or self-care (01) ==
LOC: JINFUSION 11:13 → J7W 11:14 → JINFUSION 12:15
PROVIDERS: ATTEND Internal Medicine
DX: M86.171 Other acute osteomyelitis, right ankle and foot (principal); L03.115 Cellulitis of right lower limb
CPT/HCPCS: 96365

== ENCOUNTER 2020-02-20 10:45 | Day surgery (SDC) | payer OTHER, MEDICARE ==
[2020-02-20] MEDS ORDERED: ERTAPENEM SODIUM 0.5 GM in SODIUM CHLORIDE 50 ML IVPB ONE (11:00)
[2020-02-20] MEDS ORDERED: VANCOMYCIN 500 MG in DEXTROSE 5%-WATER 100 ML IVPB ONE (11:45)
[2020-02-20 12:15] VITALS: TEMP 98
[2020-02-20 14:43] VITALS: BP 143/86; PULSE 87
== END 2020-02-20 14:43 | disposition home or self-care (01) ==
LOC: JINFUSION 10:45 → J7W 10:45 → JINFUSION 14:43
PROVIDERS: ATTEND Internal Medicine
DX: M86.171 Other acute osteomyelitis, right ankle and foot (principal); L03.115 Cellulitis of right lower limb
CPT/HCPCS: 96365; 96366; 96367

== ENCOUNTER 2020-02-21 10:47 | Day surgery (SDC) | payer OTHER, MEDICARE ==
[2020-02-21] MEDS ORDERED: ERTAPENEM SODIUM 0.5 GM in SODIUM CHLORIDE 50 ML IVPB ONE (11:30)
[2020-02-21 12:34] VITALS: BP 137/84; PULSE 88; TEMP 98
== END 2020-02-21 13:35 | disposition home or self-care (01) ==
LOC: JINFUSION 10:47 → J7W 11:10 → JINFUSION 13:35
PROVIDERS: ATTEND Internal Medicine
DX: M86.171 Other acute osteomyelitis, right ankle and foot (principal); L03.115 Cellulitis of right lower limb
CPT/HCPCS: 96365

== ENCOUNTER 2020-02-22 10:30 | Day surgery (SDC) | payer OTHER, MEDICARE ==
--- OUTSIDE RECORDS SUMMARY | 2020-02-22 10:56 | XMS ---
:1930 Author Organization [facility] Support Name Relationship Address Phone RE, RETIRED Unavailable Unavailable Unavailable RE Unavailable Unavailable Unavailable COMFORT ESCOTO [address] [place] [address] COMFORT ESCOTO Spouse [address] [place] [address] Re-disclosure Warning The records that you are [...] is protected by Article 27-F of the [facility] Public Health law. If you continue you may haveaccess to information: Regarding HIV / AIDS; Provided by facilities licensed or operated by the [facility] Office of Mental Health; or Provided by the [facility] Office for People With Developmental Disabilities. If such information is present, then the following [facility] mandated warning applies: This information has [...] law may result in a fine or half-way sentence or both. A general authorization for the release of medical or other information is NOT sufficient authorization for further disclosure. Insurance Providers Payer name Policy type Policy ID Covered Covered libertarian's Policy P luis / Coverage libertarian ID relationship to [facility] Inf ormation type betts MEDICARE [id number] SP [id number] V49 [facility] [id number] SP [id number] CARE OPTIONS MEDICARE [id number] SP [id number] V49 MEDICARE [id number] SP [id number] V49 [facility] [id number] CARE OPTIONS MEDICARE [id number] SP [id number] V49 [facility] [place] [id number] SP [id number] COMPLETE Results ID Date Data Source [id number] 01/16/2020 05:10:00 PM EDT [facility] Name Value Range Interpretation Description Data Sup porting Code Source(s) Document(s ) SARS [facility] coronavirus 2 RNA This lab was ordered by [facility] and reported by [facility]. ID Date Data Source [id number] 11/25/2019 12:00:00 AM EDT [facility] Name Value Range Interpretation Code Description Data Nessa rce(s) Supporting Document(s ) 2019-nCoV [facility] RNA XXX ERIC+probe- Imp This lab was ordered by [facility] and reported by [employer]. ID Date Data Source [id number] 11/18/2019 11:38:00 PM EDT [facility] Name Value Range Interpretation Description Data Sup porting Code Source(s) Document(s ) SARS [facility] CORONAVIRUS 2 RNA This lab was ordered by [facility] and reported by [facility]. ID Date Data Source [id number] 10/27/2019 02:30:00 PM EDT [facility] Name Value Range Interpretation Description Data Sup porting Code Source(s) Document(s ) SARS [facility] CORONAVIRUS 2 RNA This lab was ordered by [facility] and reported by [facility]. Procedure
[2020-02-22 11:12] LABS: HEMATOCRIT 27.2 % (35.4-49); HEMOGLOBIN 8.8 GM/dL (11.7-16.9); MCH 29.7 pg (25.7-33.7); MCHC 32.3 g/dl (32.0-35.9); MEAN CELL VOLUME 91.8 fl (80-96); MEAN PLT VOLUME 8.2 fl (7.5-11.1); PLATELET COUNT 161 K/MM3 (134-434); RBC 2.97 M/mm3 (4.00-5.60); RDW 19.3 % (11.9-15.9); WHITE BLOOD COUNT 5.9 K/mm3 (4.0-10.0)
[2020-02-22 11:45] LABS: BLOOD UREA NITROGEN 46.1 mg/dL (7-18); CALCIUM 8.4 mg/dL (8.5-10.1); CREATININE 1.9 mg/dL (0.55-1.3); POTASSIUM 3.2 mmol/L (3.5-5.1)
[2020-02-22] MEDS ORDERED: VANCOMYCIN 500 MG in DEXTROSE 5%-WATER - 100 ML IVPB ONE (12:00)
[2020-02-22] MEDS ORDERED: ERTAPENEM SODIUM 0.5 GM in SODIUM CHLORIDE 50 ML IVPB ONE (12:00)
[2020-02-22 12:27] LABS: ERYTHROCYTE SEDIMENTATION RATE 120 mm/hr (0-20)
[2020-02-22 17:25] VITALS: BP 112/83; PULSE 70; TEMP 98
== END 2020-02-22 13:40 | disposition home or self-care (01) ==
LOC: JINFUSION 10:30 → J7W 10:47 → JINFUSION 13:40
PROVIDERS: ATTEND Internal Medicine
DX: M86.171 Other acute osteomyelitis, right ankle and foot (principal); L03.115 Cellulitis of right lower limb
CPT/HCPCS: 36415; 80048; 85027; 85651; 86140; 96365; 96366; 96367; G0480

== ENCOUNTER 2020-02-23 06:41 | Day surgery (SDC) | payer OTHER, MEDICARE ==
--- OUTSIDE RECORDS SUMMARY | 2020-02-23 06:52 | XMS ---
:1930 Author Organization [facility] Support Name Relationship Address Phone RE, RETIRED Unavailable Unavailable Unavailable RE Unavailable Unavailable Unavailable COMFORT ESCOTO [address] [place] [address] COMFORT ESCOTO Spouse [address] [place] [place] [address] Re-disclosure Warning The records that you are [...] is protected by Article 27-F of the [facility] Public Health law. If you continue you may haveaccess to information: Regarding HIV / AIDS; Provided by facilities licensed or operated by the [facility] Office of Mental Health; or Provided by the [facility] Office for People With Developmental Disabilities. If such information is present, then the following [facility] mandated warning applies: This information has been [...] law may result in a fine or assisted sentence or both. A general authorization for the release of medical or other information is NOT sufficient authorization for further disclosure. Insurance Providers Payer name Policy type Policy ID Covered Covered libertarian's Policy P luis / Coverage libertarian ID relationship to Bet[employer] Inf ormation type betts MEDICARE [id number] SP [id number] V49 [facility] [id number] SP [id number] CARE OPTIONS MEDICARE [id number] SP [id number] V49 MEDICARE [id number] SP [id number] V49 [facility] [id number] CARE OPTIONS MEDICARE [id number] SP [id number] V49 [facility] [place] [id number] SP [id number] COMPLETE Results ID Date Data Source [id number] 01/16/2020 05:10:00 PM EDT [facility] Name Value Range Interpretation Description Data Sup porting Code Source(s) Document(s ) SARS [facility] coronavirus 2 RNA This lab was ordered by [facility] and reported by [facility]. ID Date Data Source [id number] 11/25/2019 12:00:00 AM EDT [facility] Name Value Range Interpretation Code Description Data Nessa rce(s) Supporting Document(s ) 2019-nCoV [facility] RNA XXX ERIC+probe- Imp This lab was ordered by [facility] and reported by [employer]. ID Date Data Source [id number] 11/18/2019 11:38:00 PM EDT [facility] Name Value Range Interpretation Description Data Sup porting Code Source(s) Document(s ) SARS [facility] CORONAVIRUS 2 RNA This lab was ordered by [facility] and reported by [facility]. ID Date Data Source [id number] 10/27/2019 02:30:00 PM EDT [facility] Name Value Range Interpretation Description Data Sup porting Code Source(s) Document(s ) SARS [facility] CORONAVIRUS 2 RNA This lab was ordered by [facility] and reported by [facility]. Procedure
[2020-02-23] MEDS ORDERED: ERTAPENEM SODIUM 0.5 GM in SODIUM CHLORIDE 50 ML IVPB ONE (11:30)
[2020-02-23 16:47] VITALS: BP 118/70; PULSE 80; TEMP 98
== END 2020-02-23 12:30 | disposition home or self-care (01) ==
LOC: JINFUSION 06:41 → J7W 10:56 → JINFUSION 12:30
PROVIDERS: ATTEND Internal Medicine
DX: M86.171 Other acute osteomyelitis, right ankle and foot (principal); L03.115 Cellulitis of right lower limb
CPT/HCPCS: 96365

== ENCOUNTER 2020-02-24 10:49 | Day surgery (SDC) | payer OTHER, MEDICARE ==
--- OUTSIDE RECORDS SUMMARY | 2020-02-24 10:55 | XMS ---
:1930 Author Organization [facility] Support Name Relationship Address Phone RE, RETIRED Unavailable Unavailable Unavailable RE Unavailable Unavailable Unavailable COMFORT ESCOTO [address] [place] [address] COMFORT ESCOTO Spouse [address] [place] [address] Re-disclosure Warning The records that you are [...] is protected by Article 27-F of the [facility] Public Health law. If you continue you may haveaccess to information: Regarding HIV / AIDS; Provided by facilities licensed or operated by the [facility] Office of Mental Health; or Provided by the [facility] Office for People With Developmental Disabilities. If such information is present, then the following [facility] mandated warning applies: This information has [...] law may result in a fine or usp sentence or both. A general authorization for the release of medical or other information is NOT sufficient authorization for further disclosure. Insurance Providers Payer name Policy type Policy ID Covered Covered libertarian's Policy P luis / Coverage libertarian ID relationship to Bet[employer] Inf ormation type betts MEDICARE [id number] SP [id number] V49 [facility] [id number] SP [id number] CARE OPTIONS MEDICARE [id number] SP [id number] V49 MEDICARE [id number] SP [id number] V49 [facility] [id number] CARE OPTIONS MEDICARE [id number] SP [id number] V49 [facility] [place] [id number] SP [id number] COMPLETE Results ID Date Data Source [id number] 01/16/2020 05:10:00 PM EDT [facility] Name Value Range Interpretation Description Data Sup porting Code Source(s) Document(s ) SARS [facility] coronavirus 2 RNA This lab was ordered by [facility] and reported by [facility]. ID Date Data Source [id number] 11/25/2019 12:00:00 AM EDT [facility] Name Value Range Interpretation Code Description Data Nessa rce(s) Supporting Document(s ) 2019-nCoV [facility] RNA XXX ERIC+probe- Imp This lab was ordered by [facility] and reported by [employer]. ID Date Data Source [id number] 11/18/2019 11:38:00 PM EDT [facility] Name Value Range Interpretation Description Data Sup porting Code Source(s) Document(s ) SARS [facility] CORONAVIRUS 2 RNA This lab was ordered by [facility] and reported by [facility]. ID Date Data Source [id number] 10/27/2019 02:30:00 PM EDT [facility] Name Value Range Interpretation Description Data Sup porting Code Source(s) Document(s ) SARS [facility] CORONAVIRUS 2 RNA This lab was ordered by [facility] and reported by [facility]. Procedure
[2020-02-24] MEDS ORDERED: ERTAPENEM SODIUM 0.5 GM in SODIUM CHLORIDE 50 ML IVPB ONE (11:45)
[2020-02-24] MEDS ORDERED: VANCOMYCIN 500 MG in DEXTROSE 5%-WATER 100 ML IVPB ONE (12:00)
[2020-02-24 12:58] VITALS: TEMP 98.5
[2020-02-24 13:51] VITALS: BP 133/75; PULSE 69
== END 2020-02-24 13:52 | disposition home or self-care (01) ==
LOC: J7W 10:49 → JINFUSION 10:49
PROVIDERS: ATTEND Internal Medicine
DX: M86.171 Other acute osteomyelitis, right ankle and foot (principal); L03.115 Cellulitis of right lower limb
CPT/HCPCS: 96365; 96366; 96367

== ENCOUNTER 2020-02-25 10:42 | Day surgery (SDC) | payer OTHER, MEDICARE ==
--- OUTSIDE RECORDS SUMMARY | 2020-02-25 10:57 | XMS ---
:[address] [facility] Support Name Relationship Address Phone RE, RETIRED Unavailable Unavailable Unavailable RE Unavailable Unavailable Unavailable COMFORT ESCOTO [address] [place] [address] COMFORT ESCOTO Spouse [address] [place] [place] [address] Re-disclosure Warning The records that you are [...] by Article 27-F of the [facility] Public Health law. If you continue you may haveaccess to information: Regarding HIV / AIDS; Provided by facilities licensed or operated by the [facility] Office of Mental Health; or Provided by the [facility] Office for People With Developmental Disabilities. If such information is present, then the following [facility] mandated warning applies: This information has been [...] to Betts Inf ormation type betts MEDICARE [id number] SP [id number] V49 [facility] [id number] SP [id number] CARE OPTIONS MEDICARE [id number] SP [id number] V49 MEDICARE [id number] SP [id number] V49 [facility] [id number] CARE OPTIONS MEDICARE [id number] SP [id number] V49 [facility] [place] [id number] SP [id number] COMPLETE Results ID Date Data Source [id number] 01/16/2020 05:10:00 PM EDT [facility] Name Value Range Interpretation Description Data Sup porting Code Source(s) Document(s ) SARS [facility] coronavirus 2 RNA This lab was ordered by [facility] and reported by [facility]. ID Date Data Source [id number] 11/25/2019 12:00:00 AM EDT [facility] Name Value Range Interpretation Code Description Data Nessa rce(s) Supporting Document(s ) 2019-nCoV [facility] RNA XXX ERIC+probe- Imp This lab was ordered by [facility] and reported by [employer]. ID Date Data Source [id number] 11/18/2019 11:38:00 PM EDT [facility] Name Value Range Interpretation Description Data Sup porting Code Source(s) Document(s ) SARS [facility] CORONAVIRUS 2 RNA This lab was ordered by [facility] and reported by [facility]. ID Date Data Source [id number] 10/27/2019 02:30:00 PM EDT [facility] Name Value Range Interpretation Description Data Sup porting Code Source(s) Document(s ) SARS [facility] CORONAVIRUS 2 RNA This lab was ordered by [facility] and reported by [facility]. Procedure
[2020-02-25] MEDS ORDERED: ERTAPENEM SODIUM 0.5 GM in SODIUM CHLORIDE 50 ML IVPB ONE (11:00)
[2020-02-25] MEDS ORDERED: ERTAPENEM SODIUM 1 GM VIAL ONE (11:31)
[2020-02-25] MEDS ORDERED: SODIUM CHLORIDE 50 ML IVPB ONE (11:31)
[2020-02-25 12:09] VITALS: BP 141/73; PULSE 85; TEMP 97.9
== END 2020-02-25 12:06 | disposition home or self-care (01) ==
LOC: JINFUSION 10:42 → J7W 10:43 → JINFUSION 12:06
PROVIDERS: ATTEND Internal Medicine
DX: M86.171 Other acute osteomyelitis, right ankle and foot (principal); L03.115 Cellulitis of right lower limb
CPT/HCPCS: 96365

== ENCOUNTER 2020-02-26 10:37 | Day surgery (SDC) | payer OTHER, MEDICARE ==
--- OUTSIDE RECORDS SUMMARY | 2020-02-26 10:41 | XMS ---
:1930 Author Organization [facility] Support Name Relationship Address Phone RE, RETIRED Unavailable Unavailable Unavailable RE Unavailable Unavailable Unavailable COMFORT ESCOTO [address] [place] [address] COMFORT ESCOTO Spouse [address] [place] [place] [address] Re-disclosure Warning The records that you are [...] to Betts Inf ormation type betts MEDICARE [id number] SP [id number] V49 [facility] [id number] SP [id number] CARE OPTIONS MEDICARE [id number] SP [id number] V49 MEDICARE [id number] SP [id number] V49 [facility] [id number] CARE OPTIONS MEDICARE [id number] SP [id number] V49 [facility] [place] [id number] SP [id number] COMPLETE Results ID Date Data Source [id number] 01/16/2020 05:10:00 PM EDT [facility] Name Value Range Interpretation Description Data Sup porting Code Source(s) Document(s ) SARS [facility] coronavirus 2 RNA This lab was ordered by [facility] and reported by [facility]. ID Date Data Source [id number] 11/25/2019 12:00:00 AM EDT [facility] Name Value Range Interpretation Code Description Data Nessa rce(s) Supporting Document(s ) 2019-nCoV [facility] RNA XXX ERIC+probe- Imp This lab was ordered by [facility] and reported by [employer]. ID Date Data Source [id number] 11/18/2019 11:38:00 PM EDT [facility] Name Value Range Interpretation Description Data Sup porting Code Source(s) Document(s ) SARS [facility] CORONAVIRUS 2 RNA This lab was ordered by [facility] and reported by [facility]. ID Date Data Source [id number] 10/27/2019 02:30:00 PM EDT [facility] Name Value Range Interpretation Description Data Sup porting Code Source(s) Document(s ) SARS [facility] CORONAVIRUS 2 RNA This lab was ordered by [facility] and reported by [facility]. Procedure
[2020-02-26] MEDS ORDERED: VANCOMYCIN 500 MG in DEXTROSE 5%-WATER 100 ML IVPB ONE (10:45)
[2020-02-26] MEDS ORDERED: ERTAPENEM SODIUM 0.5 GM in SODIUM CHLORIDE 50 ML IVPB ONE (10:45)
[2020-02-26 15:34] VITALS: BP 125/87; PULSE 87; TEMP 98
== END 2020-02-26 15:34 | disposition home or self-care (01) ==
LOC: JINFUSION 10:37 → J7W 10:37 → JINFUSION 15:34
PROVIDERS: ATTEND Internal Medicine
DX: M86.171 Other acute osteomyelitis, right ankle and foot (principal); L03.115 Cellulitis of right lower limb
CPT/HCPCS: 96365; 96366; 96367

== ENCOUNTER 2020-02-27 06:39 | Day surgery (SDC) | payer OTHER, MEDICARE ==
--- OUTSIDE RECORDS SUMMARY | 2020-02-27 06:42 | XMS ---
:1930 Author Organization [facility] Support Name Relationship Address Phone RE, RETIRED Unavailable Unavailable Unavailable RE Unavailable Unavailable Unavailable COMFORT ESCOTO [address] [place] [address] COMFORT ESCOTO Spouse [address] [place] [address] Re-disclosure Warning The records that you are [...] is protected by Article 27-F of the [facility] Public Health law. If you continue you may haveaccess to information: Regarding HIV / AIDS; Provided by facilities licensed or operated by the [facility] Office of Mental Health; or Provided by the [facility] Office for People With Developmental Disabilities. If such information is present, then the following [facility] mandated warning applies: This information [...] to Betts Inf ormation type betts MEDICARE [id number] SP [id number] V49 [facility] [id number] SP [id number] CARE OPTIONS MEDICARE [id number] SP [id number] V49 MEDICARE [id number] SP [id number] V49 [facility] [id number] CARE OPTIONS MEDICARE [id number] SP [id number] V49 [facility] [place] [id number] SP [id number] COMPLETE Results ID Date Data Source [id number] 01/16/2020 05:10:00 PM EDT [facility] Name Value Range Interpretation Description Data Sup porting Code Source(s) Document(s ) SARS [facility] coronavirus 2 RNA This lab was ordered by [facility] and reported by [facility]. ID Date Data Source [id number] 11/25/2019 12:00:00 AM EDT [facility] Name Value Range Interpretation Code Description Data Nessa rce(s) Supporting Document(s ) 2019-nCoV [facility] RNA XXX ERIC+probe- Imp This lab was ordered by [facility] and reported by [employer]. ID Date Data Source [id number] 11/18/2019 11:38:00 PM EDT [facility] Name Value Range Interpretation Description Data Sup porting Code Source(s) Document(s ) SARS [facility] CORONAVIRUS 2 RNA This lab was ordered by [facility] and reported by [facility]. ID Date Data Source [id number] 10/27/2019 02:30:00 PM EDT [facility] Name Value Range Interpretation Description Data Sup porting Code Source(s) Document(s ) SARS [facility] CORONAVIRUS 2 RNA This lab was ordered by [facility] and reported by [facility]. Procedure
[2020-02-27] MEDS ORDERED: ERTAPENEM SODIUM 0.5 GM in SODIUM CHLORIDE 50 ML IVPB ONE (09:45)
[2020-02-27 12:33] VITALS: BP 143/63; PULSE 72; TEMP 97.8
== END 2020-02-27 12:34 | disposition home or self-care (01) ==
LOC: JINFUSION 06:39 → J7W 10:49 → JINFUSION 12:34
PROVIDERS: ATTEND Internal Medicine
DX: M86.171 Other acute osteomyelitis, right ankle and foot (principal); L03.115 Cellulitis of right lower limb
CPT/HCPCS: 96365

== ENCOUNTER 2020-02-28 06:08 | Day surgery (SDC) | payer OTHER, MEDICARE ==
--- OUTSIDE RECORDS SUMMARY | 2020-02-28 06:12 | XMS ---
:1930 Author Organization [facility] Support Name Relationship Address Phone RE, RETIRED Unavailable Unavailable Unavailable RE Unavailable Unavailable Unavailable COMFORT ESCOTO [address] [place] [address] COMFORT ESCOTO Spouse [address] [place] [address] Re-disclosure Warning The records that you are [...] is protected by Article 27-F of the [facility] Public Health law. If you continue you may haveaccess to information: Regarding HIV / AIDS; Provided by facilities licensed or operated by the [facility] Office of Mental Health; or Provided by the [facility] Office for People With Developmental Disabilities. If such information is present, then the following [facility] mandated warning applies: This information [...] to Betts Inf ormation type betts MEDICARE [id number] SP [id number] V49 [facility] [id number] SP [id number] CARE OPTIONS MEDICARE [id number] SP [id number] V49 MEDICARE [id number] SP [id number] V49 [facility] [id number] CARE OPTIONS MEDICARE [id number] SP [id number] V49 [facility] [place] [id number] SP [id number] COMPLETE Results ID Date Data Source [id number] 01/16/2020 05:10:00 PM EDT [facility] Name Value Range Interpretation Description Data Sup porting Code Source(s) Document(s ) SARS [facility] coronavirus 2 RNA This lab [facility] and reported by [facility]. ID Date Data Source [id number] 11/25/2019 12:00:00 AM EDT [facility] Name Value Range Interpretation Code Description Data Nessa rce(s) Supporting Document(s ) 2019-nCoV [facility] RNA XXX ERIC+probe- Imp This lab was ordered by [facility] and reported by [employer]. ID Date Data Source [id number] 11/18/2019 11:38:00 PM EDT [facility] Name Value Range Interpretation Description Data Sup porting Code Source(s) Document(s ) SARS [facility] CORONAVIRUS 2 RNA This lab was ordered by [facility] system and reported by [facility]. ID Date Data Source [id number] 10/27/2019 02:30:00 PM EDT [facility] Name Value Range Interpretation Description Data Sup porting Code Source(s) Document(s ) SARS [facility] CORONAVIRUS 2 RNA This lab was ordered by [facility] system and reported by [facility]. Procedure
[2020-02-28] MEDS ORDERED: VANCOMYCIN 500 MG in DEXTROSE 5%-WATER - 100 ML IVPB ONE (10:00)
[2020-02-28] MEDS ORDERED: ERTAPENEM SODIUM 0.5 GM in SODIUM CHLORIDE 50 ML IVPB ONE (11:00)
[2020-02-28 11:29] VITALS: TEMP 97.5
[2020-02-28 12:44] VITALS: BP 158/83; PULSE 65
== END 2020-02-28 12:45 | disposition home or self-care (01) ==
LOC: JINFUSION 06:08 → J7W 10:34 → JINFUSION 12:45
PROVIDERS: ATTEND Internal Medicine
DX: M86.171 Other acute osteomyelitis, right ankle and foot (principal); L03.115 Cellulitis of right lower limb
CPT/HCPCS: 96365; 96366; 96367

== ENCOUNTER 2020-02-29 05:45 | Day surgery (SDC) | payer OTHER, MEDICARE ==
--- OUTSIDE RECORDS SUMMARY | 2020-02-29 05:49 | XMS ---
:1930 Author Organization [facility] Support Name Relationship Address Phone RE, RETIRED Unavailable Unavailable Unavailable RE Unavailable Unavailable Unavailable COMFORT ESCOTO [address] [place] [address] COMFORT ESCOTO Spouse [address] [place] [address] Re-disclosure Warning The records that you are [...] protected by Article 27-F of the [facility] Public Health law. If you continue you may haveaccess to information: Regarding HIV / AIDS; Provided by facilities licensed or operated by the [facility] Office of Mental Health; or Provided by the [facility] Office for People With Developmental Disabilities. If such information is present, then the following [facility] mandated warning applies: This information has [...] law may result in a fine or nursing home sentence or both. A general authorization for the release of medical or other information is NOT sufficient authorization for further disclosure. Insurance Providers Payer name Policy type Policy ID Covered Covered constitution party's Policy P luis / Coverage constitution party ID relationship to Betts Inf ormation type betts MEDICARE [id number] SP [id number] V49 [facility] [id number] SP [id number] CARE OPTIONS MEDICARE [id number] SP [id number] V49 MEDICARE [id number] SP [id number] V49 [facility] [id number] CARE OPTIONS MEDICARE [id number] SP [id number] V49 [facility] [place] [id number] SP [id number] COMPLETE Results ID Date Data Source [id number] 01/16/2020 05:10:00 PM EDT [facility] Name Value Range Interpretation Description Data Sup porting Code Source(s) Document(s ) SARS [facility] coronavirus 2 RNA This lab was ordered by [facility] and reported by [facility]. ID Date Data Source [id number] 11/25/2019 12:00:00 AM EDT [facility] Name Value Range Interpretation Code Description Data Nessa rce(s) Supporting Document(s ) 2019-nCoV [facility] RNA XXX ERIC+probe- Imp This lab was ordered by [facility] and reported by [employer]. ID Date Data Source [id number] 11/18/2019 11:38:00 PM EDT [facility] Name Value Range Interpretation Description Data Sup porting Code Source(s) Document(s ) SARS [facility] CORONAVIRUS 2 RNA This lab was ordered by [facility] and reported by [facility]. ID Date Data Source [id number] 10/27/2019 02:30:00 PM EDT [facility] Name Value Range Interpretation Description Data Sup porting Code Source(s) Document(s ) SARS [facility] CORONAVIRUS 2 RNA This lab was ordered by [facility] and reported by [facility]. Procedure
[2020-02-29] MEDS ORDERED: ERTAPENEM SODIUM 0.5 GM in SODIUM CHLORIDE 50 ML IVPB ONE (11:00)
[2020-02-29 11:39] VITALS: TEMP 97.9
[2020-02-29 12:19] LABS: HEMATOCRIT 25.8 % (35.4-49); HEMOGLOBIN 8.4 GM/dL (11.7-16.9); MCH 30.2 pg (25.7-33.7); MCHC 32.7 g/dl (32.0-35.9); MEAN CELL VOLUME 92.5 fl (80-96); MEAN PLT VOLUME 8.9 fl (7.5-11.1); PLATELET COUNT 160 K/MM3 (134-434); RBC 2.79 M/mm3 (4.00-5.60); RDW 19.1 % (11.9-15.9); WHITE BLOOD COUNT 5.5 K/mm3 (4.0-10.0)
[2020-02-29 12:37] LABS: BLOOD UREA NITROGEN 53.9 mg/dL (7-18); CALCIUM 8.6 mg/dL (8.5-10.1); CREATININE 2.1 mg/dL (0.55-1.3); POTASSIUM 4.2 mmol/L (3.5-5.1)
[2020-02-29 12:38] VITALS: BP 140/69; PULSE 74
[2020-02-29 13:04] LABS: ERYTHROCYTE SEDIMENTATION RATE 107 mm/hr (0-20)
--- NOTE | 2020-02-29 14:18 | CONS ---
DATE OF CONSULTATION: 02/29/2020 HISTORY OF PRESENT ILLNESS: The patient is an 89-year-old male who was evaluated for osteomyelitis of the right 2nd toe. He was hospitalized at [facility] from January 15 through February 05, 2020. At that time he was treated for bilateral lower extremity cellulitis as well as osteomyelitis of the right 2nd metatarsal. Wound cultures were positive for mixed organisms including MRSA, providencia, enterobacter, enterococcus. He received a course of IV antibiotic therapy and was ultimately discharged on IV ertapenem and vancomycin. He is now completing a 6-week course of antibiotic therapy for osteomyelitis. At the present time he reports that he has been feeling well. He is followed in the wound care center on a regular basis. His right foot plantar wound has completely healed. He does complain of pain on ambulation. He denies any erythema or purulent wound drainage. He has tolerated his course of IV antibiotic therapy without adverse reaction. PAST MEDICAL HISTORY: Positive for COPD, coronary artery disease, chronic kidney disease, peripheral arterial disease, atrial fibrillation, hyperlipidemia, DVT, congestive heart failure, osteomyelitis of the lower extremity. PAST SURGICAL HISTORY: Status post aortic valve replacement with bioprosthetic valve 1983, with a revision in 1997. History of coronary artery bypass graft, pseudomonas osteomyelitis of the right foot in 2012. ALLERGIES: PENICILLIN, develops rash. Patient has tolerated cephalosporins and has tolerated carbapenems to date. SOCIAL HISTORY: He resides in the community with his significant other. Nonsmoker, nondrinker. LABORATORY: Recent laboratory data significant for white blood cell count of 5.5, platelet count of 160, ESR 107, creatinine 2.1, C-reactive protein 3.8. Cultures as described. PHYSICAL EXAMINATION: General: He is awake and alert. He is not acutely toxic appearing, in no acute distress. Vital Signs: His temperature is 97.9, pulse rate 70, blood pressure 132/75, pulse 18 per minute, nonlabored. Cardiovascular: Heart sounds S1, S2. Lungs: Clear. Abdomen: Soft, nontender. Extremities: Positive for bilateral lower extremity edema 2+, chronic venous stasis dermatitis. There is a superficial ulceration present over the left pretibial area which does not appear to be infected. There is no purulent drainage. On examination of the right foot, there is a healed ulceration present over the plantar aspect of the 2nd metatarsal. No erythema or tenderness is noted. IMPRESSION: 1. Osteomyelitis of the right foot status post 6-week course of IV antibiotic therapy. 2. Positive wound culture, mixed organisms including methicillin-resistant Staphylococcus aureus. 3. Cellulitis of the lower extremities bilaterally, resolved. 4. Chronic venous stasis dermatitis, lower extremities bilaterally. 5. History of penicillin allergy. Patient has completed a 6-week course of vancomycin and ertapenem. At this point would discontinue antibiotics and observe off antibiotic therapy. Follow up in wound care center. Case discussed with patient's significant other present at the time of the examination. Thank you for the kind referral. DONAVON CROCKER M.D. [id number]
== END 2020-02-29 13:51 | disposition home or self-care (01) ==
LOC: JINFUSION 05:45 → J7W 10:53 → JINFUSION 13:51
PROVIDERS: ATTEND Internal Medicine
DX: M86.171 Other acute osteomyelitis, right ankle and foot (principal); L03.115 Cellulitis of right lower limb
CPT/HCPCS: 36415; 80048; 85027; 85651; 86140; 96365; G0480

== ENCOUNTER 2020-04-29 11:29 | Inpatient (IN) | payer OTHER, MEDICARE ==
[2020-04-29] MEDS ORDERED: MAGNESIUM SULF 50% (8.12 MEQ/2 ML-1 GM VIAL) IVPB ONE (11:41)
[2020-04-29] MEDS ORDERED: methylPREDNISolone NA SUCC 125 MG/2 ML VIAL ONE (11:41)
[2020-04-29] MEDS ORDERED: methylPREDNISolone NA SUCC 125 MG/2 ML VIAL IVPB ONE (11:41)
[2020-04-29] MEDS ORDERED: ALBUTEROL SO4 2.5/IPRATROPIUM 0.5 INH SOL 3 ML VIAL.NEB. NEB ONE ×2 (11:41→12:01)
[2020-04-29] MEDS ORDERED: VANCOMYCIN 1 GM in D5W (PRE-DOCKED) 1,000 MG/250 ML IVPB ONE (11:52)
[2020-04-29] MEDS ORDERED: MEROPENEM 1 GM in DEXTROSE 5%-WATER 100 ML IVPB ONE (11:52)
[2020-04-29] MEDS ORDERED: VANCOMYCIN 1 GRAM (PRE-DOCKED) 1,000 MG/250 ML BAG IVPB ONE (12:01)
[2020-04-29] MEDS ORDERED: MAGNESIUM SULFATE IN WATER 2 GM/50 ML IVPB IVPB ONE (12:01)
[2020-04-29] MEDS ORDERED: MEROPENEM 1 GM VIAL (RESTRICTED TO ID) IVPB ONE (12:01)
[2020-04-29 12:05] LABS: VENOUS BASE EXCESS 0.6 mmol/L (-2-2); VENOUS O2 SATURATION 89.1 % (70-80); VENOUS PCO2 47.4 mmHg (38-52); VENOUS PH 7.363 (7.310-7.410)
[2020-04-29 12:10] LABS: BASO % 0.7 % (0-2.0); EOS % 1.5 % (0-4.5); HEMATOCRIT 27.4 % (35.4-49); HEMOGLOBIN 8.2 GM/dL (11.7-16.9); LYMPH % 7.5 % (8-40); MCH 27.9 pg (25.7-33.7); MCHC 29.9 g/dl (32.0-35.9); MEAN CELL VOLUME 93.2 fl (80-96); MEAN PLT VOLUME 8.9 fl (7.5-11.1); MONO % 7.4 % (3.8-10.2); NEUT % 82.9 % (42.8-82.8); PLATELET COUNT 111 K/MM3 (134-434); RBC 2.94 M/mm3 (4.00-5.60); RDW 21.6 % (11.9-15.9); WHITE BLOOD COUNT 5.6 K/mm3 (4.0-10.0)
[2020-04-29 12:17] LABS: INR 2.93 (0.83-1.09); PROTHROMBIN TIME (PATIENT) 34.9 SEC (9.7-13.0)
[2020-04-29 12:20] LABS: ACTIVATED PTT 33.1 SECONDS (25.2-36.5)
[2020-04-29 12:26] LABS: CHLORIDE 104 mmol/L (98-107); SODIUM 137 mmol/L (136-145)
[2020-04-29 12:29] VITALS: BMI 38.7
[2020-04-29 12:29] LABS: ALBUMIN 2.9 g/dl (3.4-5.0); BLOOD UREA NITROGEN 70.3 mg/dL (7-18); CALCIUM 8.4 mg/dL (8.5-10.1); CO2 25 mmol/L (21-32); GLUCOSE,RANDOM 131 mg/dL (74-106); MAGNESIUM 2.5 mg/dL (1.8-2.4)
[2020-04-29 12:32] LABS: CREATININE 3.9 mg/dL (0.55-1.3); SGOT/AST 34 U/L (15-37); SGPT/ALT 36 U/L (13-61)
[2020-04-29 12:34] LABS: BILIRUBIN,TOTAL 0.5 mg/dL (0.2-1); TOT PROT 6.8 g/dl (6.4-8.2)
[2020-04-29 12:35] LABS: ALK PHOS 111 U/L (45-117)
[2020-04-29 13:01] LABS: ANISOCYTOSIS 1+; MACROCYTOSIS 1+; OVALOCYTE 1+; PLATELET ESTIMATE DECREASED
[2020-04-29 13:03] LABS: ANION GAP 7 MMOL/L (8-16); N-TERMINAL BNP 28425.4 pg/ml (5-450)
[2020-04-29 13:09] LABS: POTASSIUM 6.9 mmol/L (3.5-5.1)
[2020-04-29] MEDS ORDERED: CALCIUM GLUCONATE 10% - 1,000 MG/10 ML VIAL IVPUSH ONE ×3 (13:09→15:35)
[2020-04-29] MEDS ORDERED: INSULIN REGULAR HUMAN 100 UNITS/ML *VIAL IVPUSH ONE ×2 (13:10→15:35)
[2020-04-29] MEDS ORDERED: SODIUM ZIRCONIUM CYCLOSILICATE (LOKELMA) 5 GM PACKET PO ONE (13:10)
[2020-04-29] MEDS ORDERED: DEXTROSE 50%-WATER - 25 GM/50 ML VIAL IVPUSH ONE ×2 (13:10→15:35)
[2020-04-29] MEDS ORDERED: FUROSEMIDE 40 MG/4 ML INJECTABLE VIAL IVPUSH ONE ×2 (13:14→16:08)
[2020-04-29] MEDS ORDERED: CALCIUM GLUCONATE 10% - 1,000 MG/10 ML VIAL ONE ×3 (13:19→15:42)
[2020-04-29] MEDS ORDERED: INSULIN REGULAR HUMAN 100 UNITS/ML *VIAL ONE (13:20)
[2020-04-29] MEDS ORDERED: SODIUM ZIRCONIUM CYCLOSILICATE (LOKELMA) 5 GM PACKET ONE (13:20)
[2020-04-29] MEDS ORDERED: FUROSEMIDE 40 MG/4 ML INJECTABLE VIAL ONE ×2 (14:04→16:42)
[2020-04-29 15:11] LABS: CALCIUM 9.3 mg/dL (8.5-10.1)
[2020-04-29 15:12] LABS: ALBUMIN 2.8 g/dl (3.4-5.0); BLOOD UREA NITROGEN 68.5 mg/dL (7-18)
[2020-04-29 15:15] LABS: CREATININE 3.8 mg/dL (0.55-1.3)
[2020-04-29 15:16] LABS: BILIRUBIN,TOTAL 0.5 mg/dL (0.2-1); TOT PROT 6.6 g/dl (6.4-8.2)
[2020-04-29 15:33] LABS: POTASSIUM 6.8 mmol/L (3.5-5.1)
[2020-04-29] MEDS ORDERED: SODIUM BICARBONATE 8.4% 50 MEQ/50 ML DISP.SYRIN IVPUSH ONE (15:35)
[2020-04-29] MEDS ORDERED: SODIUM BICARBONATE 8.4% 50 MEQ/50 ML VIAL ONE (15:42)
[2020-04-29] MEDS ORDERED: DEXTROSE 50%-WATER - 25 GM/50 ML VIAL ONE (15:42)
[2020-04-29] MEDS ORDERED: SODIUM POLYSTYRENE SULFONATE 15 GM/60 ML BOTTLE RC ONE (16:09)
[2020-04-29] MEDS ORDERED: traMADol HCL 50 MG TABLET PO PRN (16:31)
[2020-04-29] MEDS ORDERED: SODIUM POLYSTYRENE SULFONATE 15 GM/60 ML BOTTLE ONE (16:42)
[2020-04-29] MEDS: FUROSEMIDE INJECTION 100 MG in DEXTROSE 5%-WATER - 40 ML IVPB SCH (17:23)
[2020-04-29] MEDS ORDERED: WARFARIN NA 1 MG TABLET ONE (18:15)
[2020-04-29] MEDS: WARFARIN NA 2 MG TABLET PO SCH (18:16)
[2020-04-29] MEDS ORDERED: TERAZOSIN HCL 2 MG CAPSULE PO SCH (22:00)
[2020-04-29 22:28] LABS: BLOOD UREA NITROGEN 72.1 mg/dL (7-18); CALCIUM 8.5 mg/dL (8.5-10.1); CREATININE 3.8 mg/dL (0.55-1.3)
[2020-04-29] MEDS: ATORVASTATIN CA 20 MG TABLET (FP) PO SCH (22:43)
[2020-04-29 22:51] LABS: POTASSIUM 6.6 mmol/L (3.5-5.1)
[2020-04-29] MEDS: hydrALAZINE HCL 25 MG TABLET (FP) PO SCH (23:06)
[2020-04-29] MEDS: BUDESONIDE/FORMETEROL FUMARATE 160/4.5 mcg INHALER IH SCH (23:06)
[2020-04-29] MEDS: LATANOPROST 0.005% OPHTH SOLN 2.5ML BOTTLE OU SCH (23:06)
[2020-04-29] MEDS: ATENOLOL 25 MG TABLET (FP) PO SCH (23:07)
[2020-04-29] MEDS ORDERED: SODIUM CHLORIDE 250 ML IV PRN (23:25)
[2020-04-30 03:19] LABS: CALCIUM 8.6 mg/dL (8.5-10.1)
[2020-04-30 03:20] LABS: BLOOD UREA NITROGEN 71.8 mg/dL (7-18)
[2020-04-30 03:23] LABS: CREATININE 3.8 mg/dL (0.55-1.3)
[2020-04-30 04:16] LABS: POTASSIUM 6.2 mmol/L (3.5-5.1)
[2020-04-30] MEDS: hydrALAZINE HCL 25 MG TABLET (FP) PO SCH ×3 (06:20→23:19)
[2020-04-30 07:11] LABS: BASO % 0.1 % (0-2.0); HEMATOCRIT 25.7 % (35.4-49); LYMPH % 7.1 % (8-40); MCH 28.6 pg (25.7-33.7); MCHC 30.9 g/dl (32.0-35.9); MEAN CELL VOLUME 92.3 fl (80-96); MEAN PLT VOLUME 9.2 fl (7.5-11.1); MONO % 2.2 % (3.8-10.2); NEUT % 90.6 % (42.8-82.8); PLATELET COUNT 95 K/MM3 (134-434); RBC 2.79 M/mm3 (4.00-5.60); RDW 20.9 % (11.9-15.9); WHITE BLOOD COUNT 3.7 K/mm3 (4.0-10.0)
[2020-04-30 07:28] LABS: POTASSIUM 5.9 mmol/L (3.5-5.1)
[2020-04-30 07:38] LABS: CALCIUM 8.7 mg/dL (8.5-10.1)
[2020-04-30 07:39] LABS: BLOOD UREA NITROGEN 75.2 mg/dL (7-18); MAGNESIUM 2.7 mg/dL (1.8-2.4)
[2020-04-30 07:42] LABS: CREATININE 3.7 mg/dL (0.55-1.3)
[2020-04-30] MEDS ORDERED: BUMETANIDE 1 MG TABLET PO SCH (10:00)
[2020-04-30] MEDS ORDERED: PT OWN MED DRAWER 7, Y5N ONE ×2 (10:03→22:39)
[2020-04-30] MEDS: PANTOPRAZOLE 40 MG TABLET PO SCH (10:50)
[2020-04-30] MEDS: amLODIPine BESYLATE 5 MG TABLET (FP) PO SCH (10:51)
[2020-04-30] MEDS: ATENOLOL 25 MG TABLET (FP) PO SCH ×2 (10:51→23:19)
[2020-04-30] MEDS ORDERED: MEROPENEM 1 GM VIAL (RESTRICTED TO ID) IVPB ONE (13:18)
[2020-04-30] MEDS ORDERED: DEXTROSE 5%-WATER 100 ML IVPB ONE ×2 (13:18→16:47)
[2020-04-30] MEDS ORDERED: MEROPENEM 1 GM in DEXTROSE 5%-WATER 100 ML IVPB ONE (13:30)
[2020-04-30] MEDS ORDERED: VANCOMYCIN 1 GRAM (PRE-DOCKED) 1,000 MG/250 ML BAG IVPB ONE (13:30)
[2020-04-30] MEDS ORDERED: SODIUM CHLORIDE 250 ML IV PRN ×2 (14:22→14:23)
[2020-04-30] MEDS ORDERED: CEFEPIME HCL 1 GM VIAL (RESTRICTED TO ID) ONE (16:47)
[2020-04-30] MEDS: CEFEPIME 1 GM in DEXTROSE 5%-WATER 1 GM/100 ML BAG IVPB SCH (16:48)
[2020-04-30] MEDS: FUROSEMIDE INJECTION 100 MG in DEXTROSE 5%-WATER - 40 ML IVPB SCH (16:49)
[2020-04-30] MEDS: WARFARIN NA 2 MG TABLET PO SCH (17:01)
[2020-04-30] MEDS: BUDESONIDE/FORMETEROL FUMARATE 160/4.5 mcg INHALER IH SCH ×2 (17:47→23:19)
[2020-04-30] MEDS: ATORVASTATIN CA 20 MG TABLET (FP) PO SCH (23:18)
[2020-04-30] MEDS: ACETAMINOPHEN 325 MG TABLET (FP) PO PRN (23:19)
[2020-04-30] MEDS: LATANOPROST 0.005% OPHTH SOLN 2.5ML BOTTLE OU SCH (23:19)
[2020-04-30] MEDS: TERAZOSIN HCL 1 MG CAPSULE PO SCH (23:21)
[2020-05-01] MEDS: hydrALAZINE HCL 25 MG TABLET (FP) PO SCH ×3 (05:19→21:52)
[2020-05-01] MEDS: PANTOPRAZOLE 40 MG TABLET PO SCH (09:54)
[2020-05-01] MEDS: BUDESONIDE/FORMETEROL FUMARATE 160/4.5 mcg INHALER IH SCH ×2 (09:55→22:04)
[2020-05-01] MEDS: amLODIPine BESYLATE 5 MG TABLET (FP) PO SCH (10:51)
[2020-05-01] MEDS: ATENOLOL 25 MG TABLET (FP) PO SCH (10:51)
[2020-05-01] MEDS ORDERED: EPOETIN ALFA 20,000 UNIT/1 ML VIAL IVPUSH ONE (15:00)
[2020-05-01 15:09] LABS: HEMATOCRIT 26.1 % (35.4-49); MCH 28.6 pg (25.7-33.7); MCHC 30.8 g/dl (32.0-35.9); MEAN CELL VOLUME 92.8 fl (80-96); MEAN PLT VOLUME 8.8 fl (7.5-11.1); PLATELET COUNT 109 K/MM3 (134-434); RBC 2.81 M/mm3 (4.00-5.60); WHITE BLOOD COUNT 6.3 K/mm3 (4.0-10.0)
[2020-05-01 15:29] LABS: POTASSIUM 4.1 mmol/L (3.5-5.1)
[2020-05-01 15:33] LABS: BLOOD UREA NITROGEN 51.9 mg/dL (7-18); CALCIUM 7.6 mg/dL (8.5-10.1)
[2020-05-01 15:34] LABS: CREATININE 2.9 mg/dL (0.55-1.3)
[2020-05-01 15:36] LABS: PHOSPHOROUS 3.6 mg/dL (2.5-4.9)
[2020-05-01] MEDS ORDERED: CEFEPIME HCL 1 GM VIAL (RESTRICTED TO ID) ONE (17:03)
[2020-05-01] MEDS ORDERED: DEXTROSE 5%-WATER 100 ML IVPB ONE (17:03)
[2020-05-01 17:38] LABS: INR 3.73 (0.83-1.09); PROTHROMBIN TIME (PATIENT) 44.1 SEC (9.7-13.0)
[2020-05-01] MEDS: CEFEPIME 1 GM in DEXTROSE 5%-WATER 1 GM/100 ML BAG IVPB SCH (18:20)
[2020-05-01 19:07] LABS: HEP B CORE AB, TOT Negative (Negative)
[2020-05-01] MEDS: ALBUTEROL SO4 2.5/IPRATROPIUM 0.5 INH SOL 3 ML VIAL.NEB. NEB PRN (20:45)
[2020-05-01] MEDS ORDERED: PT OWN MED DRAWER 7, Y5N ONE (21:44)
[2020-05-01] MEDS: ATORVASTATIN CA 20 MG TABLET (FP) PO SCH (21:52)
[2020-05-01] MEDS: TERAZOSIN HCL 1 MG CAPSULE PO SCH (21:53)
[2020-05-01] MEDS: LATANOPROST 0.005% OPHTH SOLN 2.5ML BOTTLE OU SCH (22:04)
[2020-05-02] MEDS: FUROSEMIDE 100 MG/10 ML INJECTABLE VIAL IVPB SCH ×2 (06:14→14:35)
[2020-05-02] MEDS: hydrALAZINE HCL 25 MG TABLET (FP) PO SCH ×3 (06:22→21:48)
[2020-05-02 08:22] LABS: BASO % 0.1 % (0-2.0); EOS % 1.2 % (0-4.5); HEMATOCRIT 26.1 % (35.4-49); HEMOGLOBIN 8.1 GM/dL (11.7-16.9); LYMPH % 7.7 % (8-40); MCH 28.5 pg (25.7-33.7); MCHC 31.2 g/dl (32.0-35.9); MEAN CELL VOLUME 91.4 fl (80-96); MEAN PLT VOLUME 8.3 fl (7.5-11.1); MONO % 9.2 % (3.8-10.2); NEUT % 81.8 % (42.8-82.8); PLATELET COUNT 89 K/MM3 (134-434); RBC 2.85 M/mm3 (4.00-5.60); RDW 21.1 % (11.9-15.9); WHITE BLOOD COUNT 4.9 K/mm3 (4.0-10.0)
[2020-05-02 08:29] LABS: POTASSIUM 3.2 mmol/L (3.5-5.1)
[2020-05-02 08:45] LABS: BLOOD UREA NITROGEN 31.8 mg/dL (7-18); CALCIUM 7.6 mg/dL (8.5-10.1)
[2020-05-02 08:48] LABS: CREATININE 2.1 mg/dL (0.55-1.3)
[2020-05-02 08:49] LABS: PHOSPHOROUS 2.7 mg/dL (2.5-4.9)
[2020-05-02] MEDS ORDERED: PT OWN MED DRAWER 7, Y5N ONE ×3 (09:34→21:41)
[2020-05-02] MEDS: PANTOPRAZOLE 40 MG TABLET PO SCH (10:16)
[2020-05-02] MEDS: POTASSIUM CHLORIDE TABS 20 MEQ TABLET.ER (FP) PO SCH (10:16)
[2020-05-02] MEDS: KCL 10 MEQ IVPB 10 MEQ/100 ML INFUS.BAG IVPB SCH ×2 (10:16→12:37)
[2020-05-02] MEDS: amLODIPine BESYLATE 5 MG TABLET (FP) PO SCH ×2 (10:16→12:00)
[2020-05-02] MEDS: BUDESONIDE/FORMETEROL FUMARATE 160/4.5 mcg INHALER IH SCH ×2 (10:17→21:47)
[2020-05-02] MEDS ORDERED: POTASSIUM CHLORIDE TABS 20 MEQ TABLET.ER (FP) PO ONE (14:30)
[2020-05-02] MEDS ORDERED: CEFEPIME HCL 1 GM VIAL (RESTRICTED TO ID) ONE (16:53)
[2020-05-02] MEDS ORDERED: DEXTROSE 5%-WATER 100 ML IVPB ONE (16:53)
[2020-05-02] MEDS: CEFEPIME 1 GM in DEXTROSE 5%-WATER 1 GM/100 ML BAG IVPB SCH (16:56)
[2020-05-02 18:05] LABS: INR 3.98 (0.83-1.09); PROTHROMBIN TIME (PATIENT) 46.3 SEC (9.7-13.0)
[2020-05-02 18:16] LABS: POTASSIUM 3.2 mmol/L (3.5-5.1)
[2020-05-02 18:17] LABS: CALCIUM 7.4 mg/dL (8.5-10.1)
[2020-05-02 18:18] LABS: BLOOD UREA NITROGEN 34.3 mg/dL (7-18)
[2020-05-02 18:21] LABS: CREATININE 2.2 mg/dL (0.55-1.3)
[2020-05-02] MEDS: WARFARIN NA 2 MG TABLET PO SCH (18:43)
[2020-05-02] MEDS: ALBUTEROL SO4 2.5/IPRATROPIUM 0.5 INH SOL 3 ML VIAL.NEB. NEB PRN (20:40)
[2020-05-02] MEDS: LATANOPROST 0.005% OPHTH SOLN 2.5ML BOTTLE OU SCH (21:47)
[2020-05-02] MEDS: ATORVASTATIN CA 20 MG TABLET (FP) PO SCH (21:47)
[2020-05-02] MEDS: TERAZOSIN HCL 1 MG CAPSULE PO SCH (21:48)
[2020-05-03] MEDS: hydrALAZINE HCL 25 MG TABLET (FP) PO SCH ×2 (05:52→13:47)
[2020-05-03] MEDS: FUROSEMIDE 100 MG/10 ML INJECTABLE VIAL IVPB SCH ×2 (05:52→14:29)
[2020-05-03] MEDS: ACETAMINOPHEN 325 MG TABLET (FP) PO PRN (05:53)
[2020-05-03 07:56] LABS: POTASSIUM 3.1 mmol/L (3.5-5.1)
[2020-05-03 08:09] LABS: ALBUMIN 2.5 g/dl (3.4-5.0); BLOOD UREA NITROGEN 33.6 mg/dL (7-18); CALCIUM 7.5 mg/dL (8.5-10.1)
[2020-05-03 08:13] LABS: CREATININE 2.1 mg/dL (0.55-1.3)
[2020-05-03 08:14] LABS: BILIRUBIN,TOTAL 0.7 mg/dL (0.2-1)
[2020-05-03 09:19] LABS: INR 3.23 (0.83-1.09); PROTHROMBIN TIME (PATIENT) 38.4 SEC (9.7-13.0)
[2020-05-03] MEDS ORDERED: POTASSIUM CHLORIDE TABS 20 MEQ TABLET.ER (FP) PO ONE (09:39)
[2020-05-03] MEDS: BUDESONIDE/FORMETEROL FUMARATE 160/4.5 mcg INHALER IH SCH (10:44)
[2020-05-03] MEDS: amLODIPine BESYLATE 5 MG TABLET (FP) PO SCH (10:46)
[2020-05-03] MEDS: PANTOPRAZOLE 40 MG TABLET PO SCH (10:46)
[2020-05-03] MEDS: POTASSIUM CHLORIDE TABS 20 MEQ TABLET.ER (FP) PO SCH (10:46)
[2020-05-03 14:14] VITALS: BP 143/77; PULSE 74; TEMP 97.7
== END 2020-05-03 15:10 | disposition short-term general hospital (02) | DRG 291 ==
LOC: JER 11:29 → JERBED 13:33 → JICU 18:53 → J4S 05-01 05:51
PROVIDERS: ADMIT Family Medicine; ATTEND Family Medicine
PROC: 05HM33Z Insertion of Infusion Device into Right Internal Jugular Vein, Percutaneous Approach (ICD-10-PCS; principal; 2020-04-30)
PROC: B543ZZA Ultrasonography of Right Jugular Veins, Guidance (ICD-10-PCS; 2020-04-30)
DX: I13.0 Hypertensive heart and chronic kidney disease with heart failure and stage 1 through stage 4 chronic kidney disease, or unspecified chronic kidney disease (principal); I50.33 Acute on chronic diastolic (congestive) heart failure; J96.01 Acute respiratory failure with hypoxia; J18.9 Pneumonia, unspecified organism; N18.4 Chronic kidney disease, stage 4 (severe); L03.116 Cellulitis of left lower limb; J44.1 Chronic obstructive pulmonary disease with (acute) exacerbation; N17.9 Acute kidney failure, unspecified; I25.10 Atherosclerotic heart disease of native coronary artery without angina pectoris; E78.5 Hyperlipidemia, unspecified; E11.51 Type 2 diabetes mellitus with diabetic peripheral angiopathy without gangrene; E11.22 Type 2 diabetes mellitus with diabetic chronic kidney disease; I48.0 Paroxysmal atrial fibrillation; M10.9 Gout, unspecified; D69.6 Thrombocytopenia, unspecified; K57.90 Diverticulosis of intestine, part unspecified, without perforation or abscess without bleeding; N40.0 Benign prostatic hyperplasia without lower urinary tract symptoms; E87.5 Hyperkalemia; I45.10 Unspecified right bundle-branch block; H40.9 Unspecified glaucoma; E66.9 Obesity, unspecified; Z68.32 Body mass index [BMI] 32.0-32.9, adult; R60.0 Localized edema; I71.4 Abdominal aortic aneurysm, without rupture; K44.9 Diaphragmatic hernia without obstruction or gangrene; R00.1 Bradycardia, unspecified; Z99.81 Dependence on supplemental oxygen; Z95.2 Presence of prosthetic heart valve; Z95.1 Presence of aortocoronary bypass graft; Z86.73 Personal history of transient ischemic attack (TIA), and cerebral infarction without residual deficits; Z86.718 Personal history of other venous thrombosis and embolism; I25.2 Old myocardial infarction
CPT/HCPCS: 36415; 71045-TC-FY; 80048; 80053; 82550; 82803; 83605; 83735; 83880; 84100; 84484; 85025; 85027; 85610; 85730; 86704; 86706; 86707; 86708; 86709; 86803; 87040; 87340; 93005; 93010; 93971; 94640; 94660; 99285-25; C9803; G0480; J0885; U0003

== ENCOUNTER 2020-07-02 22:13 | Inpatient (IN) | payer OTHER, MEDICARE ==
[2020-07-02] MEDS ORDERED: ACETAMINOPHEN 1000 MG/100 ML VIAL (NON FORMULARY) IVPB ONE (22:53)
[2020-07-02 23:02] LABS: BASO % 0.7 % (0-2.0); EOS % 3.7 % (0-4.5); HEMATOCRIT 26.4 % (35.4-49); HEMOGLOBIN 8.5 GM/dL (11.7-16.9); LYMPH % 7.4 % (8-40); MCH 29.5 pg (25.7-33.7); MCHC 32.1 g/dl (32.0-35.9); MEAN PLT VOLUME 8.7 fl (7.5-11.1); MONO % 10.1 % (3.8-10.2); NEUT % 78.1 % (42.8-82.8); PLATELET COUNT 164 K/MM3 (134-434); RBC 2.87 M/mm3 (4.00-5.60); RDW 21.5 % (11.9-15.9); WHITE BLOOD COUNT 6.5 K/mm3 (4.0-10.0)
[2020-07-02 23:04] LABS: ARTERIAL BLD GAS O2 SATURATION 98.5 mmHg (95-98); ARTERIAL BLOOD GAS BASE EXCESS 10.1 mmol/L (-2-2); ARTERIAL BLOOD GAS PO2 119.2 mmHg (80-100); ARTERIAL BLOOD GAS pH 7.467 (7.350-7.450)
[2020-07-02] MEDS ORDERED: ACETAMINOPHEN INJECTION 100 ML IVPB ONE (23:04)
[2020-07-02 23:11] LABS: INR 2.32 (0.83-1.09); PROTHROMBIN TIME (PATIENT) 27.4 SEC (9.7-13.0)
[2020-07-02 23:13] LABS: ACTIVATED PTT 37.3 SECONDS (25.2-36.5)
[2020-07-02 23:27] LABS: EPI CELLS 5 /uL (0-25.1); HYALINE CASTS 1 /uL (0-3.1); URINE APPEARANCE CLOUDY; URINE BACTERIA 2527 /uL (0-1359); URINE BILIRUBIN NEGATIVE (NEGATIVE); URINE COLOR YELLOW; URINE GLUCOSE (UA) NEGATIVE (NEGATIVE); URINE KETONE NEGATIVE (NEGATIVE); URINE LEUK ESTERASE 3+ (NEGATIVE); URINE NITRITE NEGATIVE (NEGATIVE); URINE PROTEIN TRACE (NEGATIVE); URINE RBC 158 /uL (0-23.9); URINE UROBILINOGEN 0.2 mg/dL (0.2-1.0); URINE WBC 1039 /uL (0-25.8)
[2020-07-02 23:30] LABS: POTASSIUM 4.6 mmol/L (3.5-5.1)
[2020-07-02 23:32] LABS: CALCIUM 8.4 mg/dL (8.5-10.1)
[2020-07-02 23:33] LABS: ALBUMIN 2.6 g/dl (3.4-5.0); BLOOD UREA NITROGEN 85.8 mg/dL (7-18)
[2020-07-02 23:36] LABS: CREATININE 2.9 mg/dL (0.55-1.3)
[2020-07-02 23:37] LABS: BILIRUBIN,TOTAL 0.5 mg/dL (0.2-1); TOT PROT 7.4 g/dl (6.4-8.2)
[2020-07-02] MEDS ORDERED: CEFEPIME HCL/D5W 2 GM/50 ML BAG IVPB ONE (23:49)
[2020-07-03] MEDS ORDERED: morphine CARPU-JECT 2 MG/1 ML DISP.SYRIN SQ ONE (00:17)
[2020-07-03] MEDS ORDERED: morphine SULFATE 4 MG/ML VIAL ONE (00:20)
[2020-07-03 00:31] LABS: N-TERMINAL BNP 42897.3 pg/ml (5-450)
[2020-07-03] MEDS ORDERED: BUMETANIDE INJECTION 1 MG/4 ML VIAL IVPUSH ONE (00:36)
[2020-07-03] MEDS ORDERED: CEFTRIAXONE 1,000 MG in DEXTROSE 5%-WATER - 50 ML IVPB ONE (00:37)
[2020-07-03] MEDS ORDERED: CEFTRIAXONE 1 GM/50 ML BAG ONE (00:49)
[2020-07-03 01:49] LABS: ANISOCYTOSIS 1+; MACROCYTOSIS 0; OVALOCYTE 1+; PLATELET ESTIMATE NORMAL
[2020-07-03 07:56] LABS: MAGNESIUM 2.6 mg/dL (1.8-2.4)
[2020-07-03 08:12] LABS: BASO % 0.4 % (0-2.0); EOS % 5.5 % (0-4.5); HEMATOCRIT 23.1 % (35.4-49); HEMOGLOBIN 7.5 GM/dL (11.7-16.9); LYMPH % 6.9 % (8-40); MCH 29.4 pg (25.7-33.7); MCHC 32.3 g/dl (32.0-35.9); MEAN PLT VOLUME 8.2 fl (7.5-11.1); MONO % 7.7 % (3.8-10.2); NEUT % 79.5 % (42.8-82.8); PLATELET COUNT 151 K/MM3 (134-434); RBC 2.54 M/mm3 (4.00-5.60); RDW 21.5 % (11.9-15.9); WHITE BLOOD COUNT 6.3 K/mm3 (4.0-10.0)
[2020-07-03] MEDS ORDERED: ACETAMINOPHEN 325 MG TABLET (FP) PO PRN (08:22)
[2020-07-03 09:08] LABS: ALBUMIN 2.5 g/dl (3.4-5.0); BLOOD UREA NITROGEN 86.4 mg/dL (7-18); CALCIUM 8.5 mg/dL (8.5-10.1)
[2020-07-03 09:10] LABS: CREATININE 2.9 mg/dL (0.55-1.3)
[2020-07-03 09:13] LABS: BILIRUBIN,TOTAL 0.9 mg/dL (0.2-1)
[2020-07-03] MEDS ORDERED: POTASSIUM CHLORIDE TABS 20 MEQ TABLET.ER (FP) PO ONE (12:55)
[2020-07-03] MEDS ORDERED: amLODIPine BESYLATE 5 MG TABLET (FP) ONE (12:55)
[2020-07-03 12:56] LABS: IRON SERUM 43 ug/dL (50-175)
[2020-07-03] MEDS ORDERED: DOCUSATE SODIUM 100 MG CAPSULE (FP) PO ONE (12:56)
[2020-07-03 12:57] LABS: TOTAL IRON BINDING CAPACITY 233 ug/dL (250-450)
[2020-07-03] MEDS: DOCUSATE SODIUM 100 MG CAPSULE (FP) PO SCH (13:02)
[2020-07-03] MEDS: POTASSIUM CHLORIDE TABS 20 MEQ TABLET.ER (FP) PO SCH (13:02)
[2020-07-03] MEDS: amLODIPine BESYLATE 5 MG TABLET (FP) PO SCH (13:02)
[2020-07-03] MEDS ORDERED: PANTOPRAZOLE 40 MG TABLET ONE (13:03)
[2020-07-03] MEDS: PANTOPRAZOLE 40 MG TABLET PO SCH (13:31)
[2020-07-03] MEDS: BUDESONIDE/FORMETEROL FUMARATE 160/4.5 mcg INHALER IH SCH (14:50)
[2020-07-03] MEDS: hydrALAZINE HCL 25 MG TABLET (FP) PO SCH (15:50)
[2020-07-03] MEDS: FUROSEMIDE 40 MG/4 ML INJECTABLE VIAL IVPUSH SCH (15:50)
[2020-07-03] MEDS ORDERED: hydrALAZINE HCL 25 MG TABLET (FP) ONE (15:51)
[2020-07-03] MEDS ORDERED: FUROSEMIDE 40 MG/4 ML INJECTABLE VIAL ONE (15:51)
[2020-07-03] MEDS: VANCOMYCIN 1,000 MG in DEXTROSE 5%-WATER - 250 ML IVPB SCH (16:22)
[2020-07-03] MEDS ORDERED: VANCOMYCIN 1 GRAM (PRE-DOCKED) 1,000 MG/250 ML BAG IVPB ONE (16:23)
[2020-07-03] MEDS ORDERED: WARFARIN NA 1 MG TABLET PO SCH (18:00)
[2020-07-03] MEDS ORDERED: TERAZOSIN HCL 2 MG CAPSULE PO SCH (22:00)
[2020-07-03] MEDS ORDERED: ALBUTEROL SO4 2.5/IPRATROPIUM 0.5 INH SOL 3 ML VIAL.NEB. NEB ONE (22:15)
[2020-07-03] MEDS: ALBUTEROL SO4 2.5/IPRATROPIUM 0.5 INH SOL 3 ML VIAL.NEB. NEB SCH ×2 (23:36→23:37)
[2020-07-04] MEDS ORDERED: hydrALAZINE HCL 25 MG TABLET (FP) ONE (00:27)
[2020-07-04] MEDS ORDERED: DOCUSATE SODIUM 100 MG CAPSULE (FP) PO ONE (00:29)
[2020-07-04] MEDS ORDERED: ATORVASTATIN CA 20 MG TABLET (FP) ONE (00:29)
[2020-07-04] MEDS ORDERED: CEFEPIME 1 GM/100 ML BAG IVPB ONE (00:29)
[2020-07-04] MEDS: ATORVASTATIN CA 20 MG TABLET (FP) PO SCH ×2 (00:38→23:17)
[2020-07-04] MEDS: DOCUSATE SODIUM 100 MG CAPSULE (FP) PO SCH ×3 (00:38→23:17)
[2020-07-04] MEDS: hydrALAZINE HCL 25 MG TABLET (FP) PO SCH ×4 (00:38→23:17)
[2020-07-04] MEDS: CEFEPIME 1 GM in DEXTROSE 5%-WATER 1 GM/100 ML BAG IVPB SCH ×3 (00:39→23:46)
[2020-07-04] MEDS: ALBUTEROL SO4 2.5/IPRATROPIUM 0.5 INH SOL 3 ML VIAL.NEB. NEB SCH (00:40)
[2020-07-04] MEDS: BUDESONIDE/FORMETEROL FUMARATE 160/4.5 mcg INHALER IH SCH ×3 (02:06→23:18)
[2020-07-04] MEDS: FUROSEMIDE 40 MG/4 ML INJECTABLE VIAL IVPUSH SCH ×2 (06:22→16:00)
[2020-07-04] MEDS: PANTOPRAZOLE 40 MG TABLET PO SCH (09:30)
[2020-07-04 09:31] LABS: BASO % 0.6 % (0-2.0); HEMATOCRIT 24.9 % (35.4-49); HEMOGLOBIN 8.1 GM/dL (11.7-16.9); LYMPH % 4.1 % (8-40); MCH 29.7 pg (25.7-33.7); MCHC 32.7 g/dl (32.0-35.9); MEAN CELL VOLUME 90.9 fl (80-96); MEAN PLT VOLUME 8.5 fl (7.5-11.1); MONO % 5.2 % (3.8-10.2); NEUT % 87.1 % (42.8-82.8); PLATELET COUNT 169 K/MM3 (134-434); RBC 2.74 M/mm3 (4.00-5.60); RDW 21.1 % (11.9-15.9); WHITE BLOOD COUNT 7.3 K/mm3 (4.0-10.0)
[2020-07-04 09:35] LABS: INR 2.47 (0.83-1.09); PROTHROMBIN TIME (PATIENT) 29.1 SEC (9.7-13.0)
[2020-07-04 09:49] LABS: POTASSIUM 3.9 mmol/L (3.5-5.1)
[2020-07-04 10:12] LABS: ALBUMIN 2.6 g/dl (3.4-5.0); BLOOD UREA NITROGEN 85.8 mg/dL (7-18)
[2020-07-04 10:14] LABS: CALCIUM 8.6 mg/dL (8.5-10.1)
[2020-07-04 10:19] LABS: CREATININE 2.7 mg/dL (0.55-1.3)
[2020-07-04 10:21] LABS: BILIRUBIN,TOTAL 0.7 mg/dL (0.2-1)
[2020-07-04 10:25] LABS: TOT PROT 6.9 g/dl (6.4-8.2)
[2020-07-04] MEDS: POTASSIUM CHLORIDE TABS 20 MEQ TABLET.ER (FP) PO SCH (11:00)
[2020-07-04] MEDS: amLODIPine BESYLATE 5 MG TABLET (FP) PO SCH (11:00)
[2020-07-04] MEDS: VANCOMYCIN 1,000 MG in DEXTROSE 5%-WATER - 250 ML IVPB SCH (19:29)
[2020-07-04] MEDS: LATANOPROST 0.005% OPHTH SOLN 2.5ML BOTTLE OU SCH (23:17)
[2020-07-04] MEDS: TERAZOSIN HCL 1 MG CAPSULE PO SCH (23:18)
[2020-07-05] MEDS: FUROSEMIDE 40 MG/4 ML INJECTABLE VIAL IVPUSH SCH ×2 (06:33→13:57)
[2020-07-05] MEDS: hydrALAZINE HCL 25 MG TABLET (FP) PO SCH ×3 (06:33→22:23)
[2020-07-05] MEDS: ALBUTEROL SO4 2.5/IPRATROPIUM 0.5 INH SOL 3 ML VIAL.NEB. NEB SCH ×4 (08:00→19:41)
[2020-07-05 09:45] LABS: POTASSIUM 3.8 mmol/L (3.5-5.1)
[2020-07-05] MEDS: BUDESONIDE/FORMETEROL FUMARATE 160/4.5 mcg INHALER IH SCH ×2 (10:18→22:27)
[2020-07-05] MEDS: CEFEPIME 1 GM in DEXTROSE 5%-WATER 1 GM/100 ML BAG IVPB SCH ×2 (10:18→22:22)
[2020-07-05] MEDS: POTASSIUM CHLORIDE TABS 20 MEQ TABLET.ER (FP) PO SCH (10:19)
[2020-07-05] MEDS: PANTOPRAZOLE 40 MG TABLET PO SCH (10:19)
[2020-07-05 10:20] LABS: ALBUMIN 2.5 g/dl (3.4-5.0); BLOOD UREA NITROGEN 89.9 mg/dL (7-18); CALCIUM 8.4 mg/dL (8.5-10.1)
[2020-07-05] MEDS: amLODIPine BESYLATE 5 MG TABLET (FP) PO SCH (10:20)
[2020-07-05] MEDS: DOCUSATE SODIUM 100 MG CAPSULE (FP) PO SCH ×2 (10:20→22:24)
[2020-07-05 10:23] LABS: CREATININE 2.6 mg/dL (0.55-1.3)
[2020-07-05 10:24] LABS: BILIRUBIN,TOTAL 0.8 mg/dL (0.2-1); TOT PROT 6.6 g/dl (6.4-8.2)
[2020-07-05] MEDS: VANCOMYCIN 1,000 MG in DEXTROSE 5%-WATER - 250 ML IVPB SCH (16:41)
[2020-07-05] MEDS: WARFARIN NA 2 MG TABLET PO SCH (18:33)
[2020-07-05 19:57] LABS: INR 2.4 (0.83-1.09); PROTHROMBIN TIME (PATIENT) 28.8 SEC (9.7-13.0)
[2020-07-05] MEDS: TERAZOSIN HCL 1 MG CAPSULE PO SCH (22:25)
[2020-07-05] MEDS: ATORVASTATIN CA 20 MG TABLET (FP) PO SCH (22:25)
[2020-07-05] MEDS: LATANOPROST 0.005% OPHTH SOLN 2.5ML BOTTLE OU SCH (22:26)
[2020-07-06] MEDS: ALBUTEROL SO4 2.5/IPRATROPIUM 0.5 INH SOL 3 ML VIAL.NEB. NEB SCH ×5 (05:18→21:24)
[2020-07-06] MEDS: FUROSEMIDE 40 MG/4 ML INJECTABLE VIAL IVPUSH SCH ×3 (05:23→17:37)
[2020-07-06] MEDS: hydrALAZINE HCL 25 MG TABLET (FP) PO SCH ×3 (05:24→22:25)
[2020-07-06] MEDS ORDERED: ALBUTEROL SO4 2.5/IPRATROPIUM 0.5 INH SOL 3 ML VIAL.NEB. NEB ONE (06:07)
[2020-07-06] MEDS: PANTOPRAZOLE 40 MG TABLET PO SCH (10:15)
[2020-07-06] MEDS: POTASSIUM CHLORIDE TABS 20 MEQ TABLET.ER (FP) PO SCH (10:15)
[2020-07-06] MEDS: amLODIPine BESYLATE 5 MG TABLET (FP) PO SCH (10:15)
[2020-07-06] MEDS: DOCUSATE SODIUM 100 MG CAPSULE (FP) PO SCH ×2 (10:15→22:25)
[2020-07-06] MEDS: CEFEPIME 1 GM in DEXTROSE 5%-WATER 1 GM/100 ML BAG IVPB SCH ×2 (10:34→22:28)
[2020-07-06 13:16] LABS: BASO % 0.3 % (0-2.0); EOS % 1.1 % (0-4.5); HEMATOCRIT 22.9 % (35.4-49); HEMOGLOBIN 7.3 GM/dL (11.7-16.9); LYMPH % 3.4 % (8-40); MCH 29.2 pg (25.7-33.7); MCHC 31.7 g/dl (32.0-35.9); MEAN PLT VOLUME 8.6 fl (7.5-11.1); MONO % 5.7 % (3.8-10.2); NEUT % 89.5 % (42.8-82.8); PLATELET COUNT 123 K/MM3 (134-434); RBC 2.49 M/mm3 (4.00-5.60); RDW 21.1 % (11.9-15.9); WHITE BLOOD COUNT 5.4 K/mm3 (4.0-10.0)
[2020-07-06 13:20] LABS: POTASSIUM 4.3 mmol/L (3.5-5.1)
[2020-07-06 13:22] LABS: ALBUMIN 2.4 g/dl (3.4-5.0); BLOOD UREA NITROGEN 86.1 mg/dL (7-18); CALCIUM 8.3 mg/dL (8.5-10.1)
[2020-07-06 13:25] LABS: CREATININE 2.8 mg/dL (0.55-1.3)
[2020-07-06 13:27] LABS: BILIRUBIN,TOTAL 0.5 mg/dL (0.2-1); TOT PROT 6.5 g/dl (6.4-8.2)
[2020-07-06] MEDS: BUDESONIDE/FORMETEROL FUMARATE 160/4.5 mcg INHALER IH SCH ×2 (13:27→22:33)
[2020-07-06 15:33] LABS: ANISOCYTOSIS 0; MACROCYTOSIS 0; OVALOCYTE 1+; PLATELET ESTIMATE DECREASED
[2020-07-06 16:53] LABS: INR 2.24 (0.83-1.09); PROTHROMBIN TIME (PATIENT) 26.5 SEC (9.7-13.0)
[2020-07-06] MEDS ORDERED: EPOETIN ALFA-EPBX 20,000 UNIT/ML VIAL SQ ONE (17:09)
[2020-07-06] MEDS: VANCOMYCIN 1,000 MG in DEXTROSE 5%-WATER - 250 ML IVPB SCH ×2 (17:34→18:13)
[2020-07-06] MEDS: WARFARIN NA 2 MG TABLET PO SCH (18:13)
[2020-07-06] MEDS: ATORVASTATIN CA 20 MG TABLET (FP) PO SCH (22:27)
[2020-07-06] MEDS: TERAZOSIN HCL 1 MG CAPSULE PO SCH (22:28)
[2020-07-06] MEDS: LATANOPROST 0.005% OPHTH SOLN 2.5ML BOTTLE OU SCH (23:08)
[2020-07-06] MEDS ORDERED: MELATONIN 5 MG TABLETS PO ONE (23:33)
[2020-07-07] MEDS: hydrALAZINE HCL 25 MG TABLET (FP) PO SCH ×3 (06:52→22:36)
[2020-07-07] MEDS: ALBUTEROL SO4 2.5/IPRATROPIUM 0.5 INH SOL 3 ML VIAL.NEB. NEB SCH ×2 (07:30→11:30)
[2020-07-07] MEDS: FUROSEMIDE 40 MG/4 ML INJECTABLE VIAL IVPUSH SCH ×2 (08:00→14:01)
[2020-07-07 08:23] LABS: BASO % 0.4 % (0-2.0); EOS % 2.5 % (0-4.5); HEMATOCRIT 24.6 % (35.4-49); HEMOGLOBIN 7.9 GM/dL (11.7-16.9); LYMPH % 4.3 % (8-40); MCH 29.2 pg (25.7-33.7); MCHC 32.2 g/dl (32.0-35.9); MEAN CELL VOLUME 90.5 fl (80-96); MEAN PLT VOLUME 8.3 fl (7.5-11.1); MONO % 7.7 % (3.8-10.2); NEUT % 85.1 % (42.8-82.8); PLATELET COUNT 139 K/MM3 (134-434); RBC 2.71 M/mm3 (4.00-5.60); RDW 21.2 % (11.9-15.9); WHITE BLOOD COUNT 5.7 K/mm3 (4.0-10.0)
[2020-07-07 08:29] LABS: INR 2.57 (0.83-1.09); PROTHROMBIN TIME (PATIENT) 30.7 SEC (9.7-13.0)
[2020-07-07 08:38] LABS: POTASSIUM 4.6 mmol/L (3.5-5.1)
[2020-07-07 08:43] LABS: ALBUMIN 2.5 g/dl (3.4-5.0); CALCIUM 8.4 mg/dL (8.5-10.1)
[2020-07-07 08:47] LABS: BILIRUBIN,TOTAL 0.7 mg/dL (0.2-1); CREATININE 2.9 mg/dL (0.55-1.3); TOT PROT 6.8 g/dl (6.4-8.2)
[2020-07-07] MEDS: SENNOSIDES 8.6MG TABLET (FP) PO SCH ×2 (10:37→22:37)
[2020-07-07] MEDS: POTASSIUM CHLORIDE TABS 20 MEQ TABLET.ER (FP) PO SCH (10:37)
[2020-07-07] MEDS: PANTOPRAZOLE 40 MG TABLET PO SCH (10:37)
[2020-07-07] MEDS: BUDESONIDE/FORMETEROL FUMARATE 160/4.5 mcg INHALER IH SCH ×2 (10:37→22:37)
[2020-07-07] MEDS: DOCUSATE SODIUM 100 MG CAPSULE (FP) PO SCH ×2 (10:37→22:36)
[2020-07-07] MEDS: CEFEPIME 1 GM in DEXTROSE 5%-WATER 1 GM/100 ML BAG IVPB SCH ×2 (10:37→22:36)
[2020-07-07] MEDS: amLODIPine BESYLATE 5 MG TABLET (FP) PO SCH (10:37)
[2020-07-07] MEDS: ACETYLCYSTEINE 20% 200MG/ML 4 ML VIAL *FOR ORAL / INH USE ONLY NEB SCH ×2 (12:00→20:35)
[2020-07-07] MEDS: guaiFENesin/D-METHORPHAN HB 10 ML UNIT-DOSE CUPS PO PRN ×2 (14:18→22:37)
[2020-07-07] MEDS: ALBUTEROL SO4 0.083% IH SOL 2.5 MG/3 ML VIAL.NEB. NEB SCH ×2 (16:04→20:35)
[2020-07-07] MEDS: WARFARIN NA 2 MG TABLET PO SCH ×3 (22:30→22:36)
[2020-07-07] MEDS: ATORVASTATIN CA 20 MG TABLET (FP) PO SCH (22:36)
[2020-07-07] MEDS: TERAZOSIN HCL 1 MG CAPSULE PO SCH (22:36)
[2020-07-07] MEDS: LATANOPROST 0.005% OPHTH SOLN 2.5ML BOTTLE OU SCH (22:37)
[2020-07-08] MEDS: FUROSEMIDE 40 MG/4 ML INJECTABLE VIAL IVPUSH SCH ×2 (06:41→14:26)
[2020-07-08] MEDS: hydrALAZINE HCL 25 MG TABLET (FP) PO SCH ×3 (06:41→22:05)
[2020-07-08] MEDS: ACETYLCYSTEINE 20% 200MG/ML 4 ML VIAL *FOR ORAL / INH USE ONLY NEB SCH ×2 (07:51→21:12)
[2020-07-08] MEDS: ALBUTEROL SO4 0.083% IH SOL 2.5 MG/3 ML VIAL.NEB. NEB SCH ×4 (07:51→21:12)
[2020-07-08 10:18] LABS: BASO % 0.8 % (0-2.0); EOS % 3.4 % (0-4.5); HEMATOCRIT 25.1 % (35.4-49); HEMOGLOBIN 8.2 GM/dL (11.7-16.9); LYMPH % 4.9 % (8-40); MCH 29.6 pg (25.7-33.7); MCHC 32.4 g/dl (32.0-35.9); MEAN CELL VOLUME 91.2 fl (80-96); MEAN PLT VOLUME 8.7 fl (7.5-11.1); MONO % 8.2 % (3.8-10.2); NEUT % 82.7 % (42.8-82.8); PLATELET COUNT 129 K/MM3 (134-434); RBC 2.76 M/mm3 (4.00-5.60); RDW 21.1 % (11.9-15.9); WHITE BLOOD COUNT 5.3 K/mm3 (4.0-10.0)
[2020-07-08] MEDS: PANTOPRAZOLE 40 MG TABLET PO SCH (10:34)
[2020-07-08] MEDS: POTASSIUM CHLORIDE TABS 20 MEQ TABLET.ER (FP) PO SCH (10:34)
[2020-07-08] MEDS: DOCUSATE SODIUM 100 MG CAPSULE (FP) PO SCH ×2 (10:34→22:05)
[2020-07-08] MEDS: BUDESONIDE/FORMETEROL FUMARATE 160/4.5 mcg INHALER IH SCH ×2 (10:35→22:05)
[2020-07-08] MEDS: amLODIPine BESYLATE 5 MG TABLET (FP) PO SCH (10:35)
[2020-07-08] MEDS: SENNOSIDES 8.6MG TABLET (FP) PO SCH ×2 (10:35→22:05)
[2020-07-08] MEDS: CEFEPIME 1 GM in DEXTROSE 5%-WATER 1 GM/100 ML BAG IVPB SCH (10:35)
[2020-07-08 10:37] LABS: POTASSIUM 4.3 mmol/L (3.5-5.1)
[2020-07-08 10:43] LABS: ALBUMIN 2.6 g/dl (3.4-5.0); BLOOD UREA NITROGEN 90.7 mg/dL (7-18); CALCIUM 8.7 mg/dL (8.5-10.1); MAGNESIUM 2.5 mg/dL (1.8-2.4)
[2020-07-08 10:49] LABS: BILIRUBIN,TOTAL 1.2 mg/dL (0.2-1)
[2020-07-08] MEDS: BACITRACIN 15 GM TUBE TOPICAL OINTMENT TP SCH (14:25)
[2020-07-08] MEDS: guaiFENesin/D-METHORPHAN HB 10 ML UNIT-DOSE CUPS PO PRN (14:26)
[2020-07-08] MEDS: WARFARIN NA 2 MG TABLET PO SCH (18:39)
[2020-07-08] MEDS: ATORVASTATIN CA 20 MG TABLET (FP) PO SCH (22:05)
[2020-07-08] MEDS: LATANOPROST 0.005% OPHTH SOLN 2.5ML BOTTLE OU SCH (22:06)
[2020-07-08] MEDS ORDERED: CEFPODOXIME PROXETIL 100 MG TABLET PO ONE (23:29)
[2020-07-08] MEDS: TERAZOSIN HCL 1 MG CAPSULE PO SCH (23:37)
[2020-07-09] MEDS ORDERED: PT OWN MED DRAWER 7, Y5N ONE ×4 (01:03→22:19)
[2020-07-09] MEDS: CEFEPIME 1 GM in DEXTROSE 5%-WATER 1 GM/100 ML BAG IVPB SCH ×4 (01:14→22:20)
[2020-07-09] MEDS: FUROSEMIDE 40 MG/4 ML INJECTABLE VIAL IVPUSH SCH ×2 (05:29→13:30)
[2020-07-09] MEDS ORDERED: FUROSEMIDE 40 MG TABLET (FP) PO ONE (06:00)
[2020-07-09] MEDS: hydrALAZINE HCL 25 MG TABLET (FP) PO SCH ×3 (06:05→22:17)
[2020-07-09] MEDS: ALBUTEROL SO4 0.083% IH SOL 2.5 MG/3 ML VIAL.NEB. NEB SCH ×4 (07:43→20:30)
[2020-07-09] MEDS: ACETYLCYSTEINE 20% 200MG/ML 4 ML VIAL *FOR ORAL / INH USE ONLY NEB SCH ×2 (07:43→20:30)
[2020-07-09 08:49] LABS: BASO % 0.7 % (0-2.0); EOS % 3.2 % (0-4.5); HEMATOCRIT 23.1 % (35.4-49); HEMOGLOBIN 7.6 GM/dL (11.7-16.9); LYMPH % 4.7 % (8-40); MCH 29.8 pg (25.7-33.7); MEAN CELL VOLUME 90.2 fl (80-96); MEAN PLT VOLUME 8.3 fl (7.5-11.1); MONO % 10.2 % (3.8-10.2); NEUT % 81.2 % (42.8-82.8); PLATELET COUNT 130 K/MM3 (134-434); PROTHROMBIN TIME (PATIENT) 63.2 SEC (9.7-13.0); RBC 2.56 M/mm3 (4.00-5.60); RDW 21.2 % (11.9-15.9); WHITE BLOOD COUNT 6.8 K/mm3 (4.0-10.0)
[2020-07-09 09:03] LABS: POTASSIUM 3.9 mmol/L (3.5-5.1)
[2020-07-09 09:18] LABS: CALCIUM 8.6 mg/dL (8.5-10.1)
[2020-07-09 09:22] LABS: ALBUMIN 2.5 g/dl (3.4-5.0)
[2020-07-09 09:23] LABS: CREATININE 2.9 mg/dL (0.55-1.3)
[2020-07-09 09:26] LABS: BILIRUBIN,TOTAL 0.7 mg/dL (0.2-1); TOT PROT 6.3 g/dl (6.4-8.2)
[2020-07-09 09:59] LABS: INR 5.44 (0.83-1.09)
[2020-07-09] MEDS ORDERED: DEXTROSE 5%-WATER 100 ML IVPB ONE ×2 (10:43→22:13)
[2020-07-09] MEDS ORDERED: CEFEPIME HCL 1 GM VIAL (RESTRICTED TO ID) ONE ×2 (10:43→22:13)
[2020-07-09] MEDS: DOCUSATE SODIUM 100 MG CAPSULE (FP) PO SCH ×2 (11:22→22:17)
[2020-07-09] MEDS: POTASSIUM CHLORIDE TABS 20 MEQ TABLET.ER (FP) PO SCH (11:22)
[2020-07-09] MEDS: SENNOSIDES 8.6MG TABLET (FP) PO SCH ×2 (11:22→22:21)
[2020-07-09] MEDS: amLODIPine BESYLATE 5 MG TABLET (FP) PO SCH (11:22)
[2020-07-09] MEDS: PANTOPRAZOLE 40 MG TABLET PO SCH (11:22)
[2020-07-09] MEDS: BUDESONIDE/FORMETEROL FUMARATE 160/4.5 mcg INHALER IH SCH ×2 (11:31→22:21)
[2020-07-09] MEDS: COLLAGENASE CLOSTRIDIUM HIST. 30 GRAMS TUBE TP SCH (12:24)
[2020-07-09] MEDS ORDERED: EPOETIN ALFA-EPBX 20,000 UNIT/ML VIAL SQ ONE (12:30)
[2020-07-09] MEDS: FERROUS GLUCONATE 324 MG TAB (FP) PO SCH (13:25)
[2020-07-09] MEDS: BACITRACIN 15 GM TUBE TOPICAL OINTMENT TP SCH (13:44)
[2020-07-09] MEDS ORDERED: WARFARIN NA 2 MG TABLET PO SCH (18:00)
[2020-07-09] MEDS: ATORVASTATIN CA 20 MG TABLET (FP) PO SCH (22:20)
[2020-07-09] MEDS: TERAZOSIN HCL 1 MG CAPSULE PO SCH (22:20)
[2020-07-09] MEDS: LATANOPROST 0.005% OPHTH SOLN 2.5ML BOTTLE OU SCH (22:22)
[2020-07-10] MEDS: hydrALAZINE HCL 25 MG TABLET (FP) PO SCH ×3 (05:58→21:55)
[2020-07-10] MEDS: FUROSEMIDE 40 MG/4 ML INJECTABLE VIAL IVPUSH SCH ×2 (05:58→14:02)
[2020-07-10] MEDS: ACETYLCYSTEINE 20% 200MG/ML 4 ML VIAL *FOR ORAL / INH USE ONLY NEB SCH ×2 (08:30→20:12)
[2020-07-10] MEDS: ALBUTEROL SO4 0.083% IH SOL 2.5 MG/3 ML VIAL.NEB. NEB SCH ×4 (08:30→20:13)
[2020-07-10] MEDS: SENNOSIDES 8.6MG TABLET (FP) PO SCH ×2 (10:34→21:55)
[2020-07-10] MEDS: POTASSIUM CHLORIDE TABS 20 MEQ TABLET.ER (FP) PO SCH (10:35)
[2020-07-10] MEDS: amLODIPine BESYLATE 5 MG TABLET (FP) PO SCH (10:36)
[2020-07-10] MEDS: PANTOPRAZOLE 40 MG TABLET PO SCH (10:36)
[2020-07-10] MEDS: DOCUSATE SODIUM 100 MG CAPSULE (FP) PO SCH ×2 (10:36→21:55)
[2020-07-10] MEDS: BUDESONIDE/FORMETEROL FUMARATE 160/4.5 mcg INHALER IH SCH ×2 (10:38→21:55)
[2020-07-10] MEDS: BACITRACIN 15 GM TUBE TOPICAL OINTMENT TP SCH (10:38)
[2020-07-10] MEDS: CEFEPIME 1 GM in DEXTROSE 5%-WATER 1 GM/100 ML BAG IVPB SCH ×2 (10:48→21:55)
[2020-07-10] MEDS: COLLAGENASE CLOSTRIDIUM HIST. 30 GRAMS TUBE TP SCH (10:49)
[2020-07-10] MEDS: FERROUS GLUCONATE 324 MG TAB (FP) PO SCH (12:17)
[2020-07-10 12:41] LABS: BASO % 0.3 % (0-2.0); EOS % 2.7 % (0-4.5); HEMATOCRIT 24.3 % (35.4-49); HEMOGLOBIN 7.7 GM/dL (11.7-16.9); LYMPH % 4.8 % (8-40); MCH 29.4 pg (25.7-33.7); MCHC 31.7 g/dl (32.0-35.9); MEAN CELL VOLUME 92.5 fl (80-96); MEAN PLT VOLUME 8.5 fl (7.5-11.1); MONO % 7.7 % (3.8-10.2); NEUT % 84.5 % (42.8-82.8); PLATELET COUNT 127 K/MM3 (134-434); RBC 2.63 M/mm3 (4.00-5.60); RDW 21.9 % (11.9-15.9); WHITE BLOOD COUNT 6.9 K/mm3 (4.0-10.0)
[2020-07-10 12:57] VITALS: BMI 30.7
[2020-07-10 13:09] LABS: POTASSIUM 3.5 mmol/L (3.5-5.1)
[2020-07-10 13:11] LABS: ALBUMIN 2.5 g/dl (3.4-5.0); BLOOD UREA NITROGEN 85.8 mg/dL (7-18); CALCIUM 8.3 mg/dL (8.5-10.1)
[2020-07-10 13:16] LABS: BILIRUBIN,TOTAL 0.6 mg/dL (0.2-1); TOT PROT 6.8 g/dl (6.4-8.2)
[2020-07-10 13:20] LABS: PROTHROMBIN TIME (PATIENT) 74.1 SEC (9.7-13.0)
[2020-07-10 13:39] LABS: INR 6.47 (0.83-1.09)
[2020-07-10 14:51] LABS: OVALOCYTE 1+; PLATELET ESTIMATE SLT DECREASE; ROULEAU 1+; TEAR DROP CELLS 1+
[2020-07-10] MEDS: AMINO ACIDS/PROTEIN HYDROLYS 30 ML LIQUID.PKT PO SCH (18:25)
[2020-07-10] MEDS ORDERED: CEFEPIME HCL 1 GM VIAL (RESTRICTED TO ID) ONE (21:50)
[2020-07-10] MEDS ORDERED: DEXTROSE 5%-WATER 100 ML IVPB ONE (21:50)
[2020-07-10] MEDS: ATORVASTATIN CA 20 MG TABLET (FP) PO SCH (21:55)
[2020-07-10] MEDS: LATANOPROST 0.005% OPHTH SOLN 2.5ML BOTTLE OU SCH (21:56)
[2020-07-10] MEDS ORDERED: PT OWN MED DRAWER 7, Y5N ONE (21:57)
[2020-07-10] MEDS: TERAZOSIN HCL 1 MG CAPSULE PO SCH (21:58)
[2020-07-11] MEDS: FUROSEMIDE 40 MG/4 ML INJECTABLE VIAL IVPUSH SCH ×2 (06:55→14:28)
[2020-07-11] MEDS: hydrALAZINE HCL 25 MG TABLET (FP) PO SCH ×3 (06:56→21:54)
[2020-07-11] MEDS: ACETYLCYSTEINE 20% 200MG/ML 4 ML VIAL *FOR ORAL / INH USE ONLY NEB SCH ×2 (08:40→21:14)
[2020-07-11] MEDS: ALBUTEROL SO4 0.083% IH SOL 2.5 MG/3 ML VIAL.NEB. NEB SCH ×4 (08:40→21:14)
[2020-07-11 09:22] LABS: PROTHROMBIN TIME (PATIENT) 54.9 SEC (9.7-13.0)
[2020-07-11 09:33] LABS: BASO % 0.7 % (0-2.0); HEMATOCRIT 23.8 % (35.4-49); HEMOGLOBIN 7.8 GM/dL (11.7-16.9); LYMPH % 4.8 % (8-40); MCH 29.8 pg (25.7-33.7); MCHC 32.7 g/dl (32.0-35.9); MEAN CELL VOLUME 91.3 fl (80-96); MEAN PLT VOLUME 8.3 fl (7.5-11.1); MONO % 10.5 % (3.8-10.2); PLATELET COUNT 126 K/MM3 (134-434); RBC 2.61 M/mm3 (4.00-5.60); RDW 21.2 % (11.9-15.9); WHITE BLOOD COUNT 6.2 K/mm3 (4.0-10.0)
[2020-07-11 09:40] LABS: INR 4.67 (0.83-1.09)
[2020-07-11] MEDS ORDERED: CEFEPIME HCL 1 GM VIAL (RESTRICTED TO ID) ONE ×2 (09:49→20:43)
[2020-07-11] MEDS ORDERED: PT OWN MED DRAWER 7, Y5N ONE (09:49)
[2020-07-11] MEDS ORDERED: DEXTROSE 5%-WATER 100 ML IVPB ONE ×2 (09:49→20:43)
[2020-07-11] MEDS: ACETAMINOPHEN 325 MG TABLET (FP) PO PRN ×2 (09:56→17:49)
[2020-07-11] MEDS: POTASSIUM CHLORIDE TABS 20 MEQ TABLET.ER (FP) PO SCH (09:56)
[2020-07-11] MEDS: AMINO ACIDS/PROTEIN HYDROLYS 30 ML LIQUID.PKT PO SCH ×2 (09:56→17:49)
[2020-07-11] MEDS: DOCUSATE SODIUM 100 MG CAPSULE (FP) PO SCH ×2 (09:56→21:51)
[2020-07-11] MEDS: CEFEPIME 1 GM in DEXTROSE 5%-WATER 1 GM/100 ML BAG IVPB SCH ×2 (09:56→21:54)
[2020-07-11] MEDS: SENNOSIDES 8.6MG TABLET (FP) PO SCH ×2 (09:58→21:51)
[2020-07-11] MEDS: amLODIPine BESYLATE 5 MG TABLET (FP) PO SCH (09:58)
[2020-07-11] MEDS: PANTOPRAZOLE 40 MG TABLET PO SCH (09:58)
[2020-07-11] MEDS: COLLAGENASE CLOSTRIDIUM HIST. 30 GRAMS TUBE TP SCH (09:58)
[2020-07-11] MEDS: FERROUS GLUCONATE 324 MG TAB (FP) PO SCH (09:59)
[2020-07-11] MEDS: MULTIVIT-MINERALS ORAL LIQUID PO SCH (10:00)
[2020-07-11] MEDS: BACITRACIN 15 GM TUBE TOPICAL OINTMENT TP SCH (10:01)
[2020-07-11] MEDS: BUDESONIDE/FORMETEROL FUMARATE 160/4.5 mcg INHALER IH SCH ×2 (10:02→21:55)
[2020-07-11 10:07] LABS: POTASSIUM 3.6 mmol/L (3.5-5.1)
[2020-07-11 10:24] LABS: CALCIUM 8.1 mg/dL (8.5-10.1)
[2020-07-11 10:25] LABS: ALBUMIN 2.4 g/dl (3.4-5.0); BLOOD UREA NITROGEN 80.6 mg/dL (7-18); CREATININE 2.9 mg/dL (0.55-1.3)
[2020-07-11 10:26] LABS: BILIRUBIN,TOTAL 0.6 mg/dL (0.2-1)
[2020-07-11 10:27] LABS: TOT PROT 6.5 g/dl (6.4-8.2)
[2020-07-11 15:00] LABS: ALLENS TEST POSITIVE; ARTERIAL BLD GAS O2 SATURATION 98.8 mmHg (95-98); ARTERIAL BLOOD GAS BASE EXCESS 7.1 mmol/L (-2-2); ARTERIAL BLOOD GAS PO2 152.6 mmHg (80-100); ARTERIAL BLOOD GAS pH 7.367 (7.350-7.450)
[2020-07-11] MEDS ORDERED: MORPHINE SULFATE 2 MG/ML VIAL IVPUSH ONE (18:41)
[2020-07-11] MEDS ORDERED: LORazepam 2 MG/ML SDV VIAL IVPB ONE (19:18)
[2020-07-11] MEDS ORDERED: diphenhydrAMINE HCL 25 MG CAPSULE (FP) PO ONE (20:12)
[2020-07-11] MEDS: ATORVASTATIN CA 20 MG TABLET (FP) PO SCH (21:51)
[2020-07-11] MEDS: TERAZOSIN HCL 1 MG CAPSULE PO SCH (21:53)
[2020-07-11] MEDS: LATANOPROST 0.005% OPHTH SOLN 2.5ML BOTTLE OU SCH (21:55)
[2020-07-12] MEDS: hydrALAZINE HCL 25 MG TABLET (FP) PO SCH ×5 (05:27→23:11)
[2020-07-12] MEDS: FUROSEMIDE 40 MG/4 ML INJECTABLE VIAL IVPUSH SCH (05:28)
[2020-07-12] MEDS: ACETYLCYSTEINE 20% 200MG/ML 4 ML VIAL *FOR ORAL / INH USE ONLY NEB SCH ×2 (08:05→20:18)
[2020-07-12] MEDS: ALBUTEROL SO4 0.083% IH SOL 2.5 MG/3 ML VIAL.NEB. NEB SCH ×2 (08:05→11:50)
[2020-07-12] MEDS ORDERED: CEFEPIME HCL 1 GM VIAL (RESTRICTED TO ID) ONE ×2 (09:33→20:32)
[2020-07-12] MEDS ORDERED: DEXTROSE 5%-WATER 100 ML IVPB ONE ×2 (09:34→20:32)
[2020-07-12] MEDS: BACITRACIN 15 GM TUBE TOPICAL OINTMENT TP SCH (10:24)
[2020-07-12] MEDS: PANTOPRAZOLE 40 MG TABLET PO SCH (10:24)
[2020-07-12] MEDS: AMINO ACIDS/PROTEIN HYDROLYS 30 ML LIQUID.PKT PO SCH ×2 (10:24→18:25)
[2020-07-12] MEDS: DOCUSATE SODIUM 100 MG CAPSULE (FP) PO SCH ×2 (10:25→23:11)
[2020-07-12] MEDS: amLODIPine BESYLATE 5 MG TABLET (FP) PO SCH (10:25)
[2020-07-12] MEDS: SENNOSIDES 8.6MG TABLET (FP) PO SCH ×2 (10:25→23:12)
[2020-07-12] MEDS: MULTIVIT-MINERALS ORAL LIQUID PO SCH (10:25)
[2020-07-12] MEDS: POTASSIUM CHLORIDE TABS 20 MEQ TABLET.ER (FP) PO SCH (10:25)
[2020-07-12] MEDS: BUDESONIDE/FORMETEROL FUMARATE 160/4.5 mcg INHALER IH SCH ×2 (10:25→23:13)
[2020-07-12] MEDS: FERROUS GLUCONATE 324 MG TAB (FP) PO SCH (10:25)
[2020-07-12] MEDS: CEFEPIME 1 GM in DEXTROSE 5%-WATER 1 GM/100 ML BAG IVPB SCH ×2 (10:25→22:00)
[2020-07-12] MEDS: COLLAGENASE CLOSTRIDIUM HIST. 30 GRAMS TUBE TP SCH (10:25)
[2020-07-12 10:36] LABS: ALLENS TEST POSITIVE; ARTERIAL BLD GAS O2 SATURATION 96.6 mmHg (95-98); ARTERIAL BLOOD GAS BASE EXCESS 8.6 mmol/L (-2-2); ARTERIAL BLOOD GAS PO2 86.6 mmHg (80-100); ARTERIAL BLOOD GAS pH 7.422 (7.350-7.450)
[2020-07-12 10:37] LABS: VENT MODE S/T; VENT RATE 16
[2020-07-12 11:50] LABS: PROTHROMBIN TIME (PATIENT) 50.9 SEC (9.7-13.0)
[2020-07-12 11:52] LABS: BASO % 0.7 % (0-2.0); EOS % 3.3 % (0-4.5); HEMATOCRIT 25.9 % (35.4-49); HEMOGLOBIN 8.4 GM/dL (11.7-16.9); LYMPH % 6.5 % (8-40); MCHC 32.5 g/dl (32.0-35.9); MEAN CELL VOLUME 92.3 fl (80-96); MEAN PLT VOLUME 8.2 fl (7.5-11.1); MONO % 10.1 % (3.8-10.2); NEUT % 79.4 % (42.8-82.8); PLATELET COUNT 121 K/MM3 (134-434); RDW 22.1 % (11.9-15.9); WHITE BLOOD COUNT 6.2 K/mm3 (4.0-10.0)
[2020-07-12 11:58] LABS: POTASSIUM 3.3 mmol/L (3.5-5.1)
[2020-07-12 12:00] LABS: ALBUMIN 2.4 g/dl (3.4-5.0); CALCIUM 8.4 mg/dL (8.5-10.1)
[2020-07-12 12:04] LABS: CREATININE 3.4 mg/dL (0.55-1.3)
[2020-07-12 12:05] LABS: TOT PROT 6.6 g/dl (6.4-8.2)
[2020-07-12 12:11] LABS: BILIRUBIN,TOTAL 0.7 mg/dL (0.2-1)
[2020-07-12 13:32] LABS: INR 4.39 (0.83-1.09)
[2020-07-12] MEDS: POTASSIUM CHLORIDE TABS 20 MEQ TABLET.ER (FP) PO ONE ×2 (15:02→15:19)
[2020-07-12] MEDS: FUROSEMIDE 100 MG/10 ML INJECTABLE VIAL IVPB SCH (15:02)
[2020-07-12] MEDS: KCL 10 MEQ IVPB 10 MEQ/100 ML INFUS.BAG IVPB SCH ×4 (17:17→20:34)
[2020-07-12] MEDS ORDERED: PT OWN MED DRAWER 7, Y5N ONE (19:41)
[2020-07-12] MEDS: ATORVASTATIN CA 20 MG TABLET (FP) PO SCH (23:11)
[2020-07-12] MEDS: TERAZOSIN HCL 1 MG CAPSULE PO SCH (23:11)
[2020-07-12] MEDS: LATANOPROST 0.005% OPHTH SOLN 2.5ML BOTTLE OU SCH (23:13)
[2020-07-13] MEDS: hydrALAZINE HCL 25 MG TABLET (FP) PO SCH ×2 (05:46→13:17)
[2020-07-13] MEDS: FUROSEMIDE 100 MG/10 ML INJECTABLE VIAL IVPB SCH ×2 (05:46→13:21)
[2020-07-13 07:36] LABS: PROTHROMBIN TIME (PATIENT) 64.2 SEC (9.7-13.0)
[2020-07-13 07:42] LABS: BASO % 0.6 % (0-2.0); EOS % 2.3 % (0-4.5); HEMATOCRIT 24.7 % (35.4-49); HEMOGLOBIN 7.9 GM/dL (11.7-16.9); LYMPH % 4.4 % (8-40); MCH 29.6 pg (25.7-33.7); MEAN CELL VOLUME 92.3 fl (80-96); MEAN PLT VOLUME 8.2 fl (7.5-11.1); MONO % 8.5 % (3.8-10.2); NEUT % 84.2 % (42.8-82.8); PLATELET COUNT 119 K/MM3 (134-434); RBC 2.67 M/mm3 (4.00-5.60); RDW 21.9 % (11.9-15.9); WHITE BLOOD COUNT 5.7 K/mm3 (4.0-10.0)
[2020-07-13 07:47] LABS: POTASSIUM 3.3 mmol/L (3.5-5.1)
[2020-07-13 07:55] LABS: ALBUMIN 2.2 g/dl (3.4-5.0); BLOOD UREA NITROGEN 89.5 mg/dL (7-18)
[2020-07-13 07:58] LABS: CREATININE 3.6 mg/dL (0.55-1.3)
[2020-07-13 07:59] LABS: BILIRUBIN,TOTAL 1.4 mg/dL (0.2-1); TOT PROT 6.3 g/dl (6.4-8.2)
[2020-07-13 08:27] LABS: INR 5.58 (0.83-1.09)
[2020-07-13] MEDS: AMINO ACIDS/PROTEIN HYDROLYS 30 ML LIQUID.PKT PO SCH ×2 (10:01→18:48)
[2020-07-13] MEDS: SENNOSIDES 8.6MG TABLET (FP) PO SCH (10:02)
[2020-07-13] MEDS: MULTIVIT-MINERALS ORAL LIQUID PO SCH (10:02)
[2020-07-13] MEDS: DOCUSATE SODIUM 100 MG CAPSULE (FP) PO SCH (10:03)
[2020-07-13] MEDS ORDERED: CEFEPIME HCL 1 GM VIAL (RESTRICTED TO ID) ONE (10:08)
[2020-07-13] MEDS ORDERED: DEXTROSE 5%-WATER 100 ML IVPB ONE (10:08)
[2020-07-13] MEDS: CEFEPIME 1 GM in DEXTROSE 5%-WATER 1 GM/100 ML BAG IVPB SCH (10:39)
[2020-07-13] MEDS: BUDESONIDE/FORMETEROL FUMARATE 160/4.5 mcg INHALER IH SCH (10:39)
[2020-07-13] MEDS: amLODIPine BESYLATE 5 MG TABLET (FP) PO SCH (10:39)
[2020-07-13] MEDS: FERROUS GLUCONATE 324 MG TAB (FP) PO SCH (10:39)
[2020-07-13] MEDS: BACITRACIN 15 GM TUBE TOPICAL OINTMENT TP SCH (10:39)
[2020-07-13] MEDS: POTASSIUM CHLORIDE TABS 20 MEQ TABLET.ER (FP) PO SCH (10:39)
[2020-07-13] MEDS: COLLAGENASE CLOSTRIDIUM HIST. 30 GRAMS TUBE TP SCH (10:39)
[2020-07-13] MEDS: PANTOPRAZOLE 40 MG TABLET PO SCH (10:40)
[2020-07-13] MEDS ORDERED: AMINO ACIDS 4.25%/D5W 1,000 ML IV SCH (11:30)
[2020-07-13] MEDS: KCL 10 MEQ IVPB 10 MEQ/100 ML INFUS.BAG IVPB SCH ×2 (12:09→13:10)
[2020-07-13] MEDS ORDERED: EPOETIN ALFA-EPBX 10,000 UNIT/ML VIAL SQ SCH (12:30)
[2020-07-13] MEDS ORDERED: PT OWN MED DRAWER 7, Y5N ONE ×2 (13:29→14:00)
[2020-07-13 13:41] VITALS: TEMP 97.5
[2020-07-13 17:54] VITALS: BP 146/73; PULSE 76
== END 2020-07-13 21:25 | disposition expired | DRG 291 ==
LOC: JER 22:13 → JERBED 07-03 00:19 → J6WEST-2 07-04 06:07 → J8W 07-09 00:15 → J4W 07-11 23:39
PROVIDERS: ADMIT Internal Medicine; ATTEND Family Medicine
DX: I13.0 Hypertensive heart and chronic kidney disease with heart failure and stage 1 through stage 4 chronic kidney disease, or unspecified chronic kidney disease (principal); I50.23 Acute on chronic systolic (congestive) heart failure; J96.01 Acute respiratory failure with hypoxia; I45.2 Bifascicular block; N39.0 Urinary tract infection, site not specified; E87.2 Acidosis; L03.116 Cellulitis of left lower limb; L03.115 Cellulitis of right lower limb; N17.9 Acute kidney failure, unspecified; N18.9 Chronic kidney disease, unspecified; Z79.01 Long term (current) use of anticoagulants; I25.10 Atherosclerotic heart disease of native coronary artery without angina pectoris; Z95.1 Presence of aortocoronary bypass graft; J44.9 Chronic obstructive pulmonary disease, unspecified; I73.9 Peripheral vascular disease, unspecified; Z95.2 Presence of prosthetic heart valve; Z88.0 Allergy status to penicillin; D64.9 Anemia, unspecified; E66.9 Obesity, unspecified; Z99.81 Dependence on supplemental oxygen; I45.10 Unspecified right bundle-branch block; I71.4 Abdominal aortic aneurysm, without rupture; Z68.30 Body mass index [BMI] 30.0-30.9, adult; L97.519 Non-pressure chronic ulcer of other part of right foot with unspecified severity; D63.1 Anemia in chronic kidney disease; B35.1 Tinea unguium; I48.0 Paroxysmal atrial fibrillation; E78.5 Hyperlipidemia, unspecified; N40.0 Benign prostatic hyperplasia without lower urinary tract symptoms
CPT/HCPCS: 36415; 36600; 70450-TC; 71045-TC-FY; 72125-TC; 73090-TC-RT-FY; 73630-TC-RT-FY; 80048; 80053; 81003; 82728; 82803; 82962; 83540; 83550; 83605; 83615; 83735; 83880; 84100; 84484; 85025; 85610; 85730; 86140; 86850; 86900; 86901; 87040; 87070; 87086; 87186; 87205; 93005; 93010; 94640; 94660; 97116-GP; 97161-GP; 99285-25; C9803; G0480; J0131; Q5106; U0003